=== PATIENT | male | born 1955 | race Caucasian/White ===

== ENCOUNTER → 2018-10-22 08:25 | Outpatient (CLI) | payer OTHER, SELFPAY ==
--- NOTE | 2018-10-22 08:30 | US_ITS ---
STUDY: ABDOMINAL ULTRASOUND REASON FOR EXAM: Male, 63 years old. One year history of intermittent right upper quadrant pain. TECHNIQUE: Transabdominal ultrasound was performed with real-time and static lepe scale imaging. TECHNICAL QUALITY: Adequate. COMPARISON: None. FINDINGS: Liver: The liver measures 15.0 cm. There is normal echogenicity of the liver. The bile ducts are within normal limits. There is hepatic color flow. The direction of portal flow is hepatopetal. There is no demonstrated mass lesion. Portal vein measurement: Gallbladder: Normal distended gallbladder. The gallbladder wall measures 2.2 mm. There is a negative sonographic Cardenas's sign. There is no pericholecystic fluid. There are no gallstones. Common Bile Duct (C.B.D.): The common bile duct measures 5.1 mm. Pancreas: Normal size of the head, body and tail of the pancreas. There is normal echogenicity of the pancreas. There is no demonstrated pancreatic mass or cyst. Spleen: Normal size of the spleen. The spleen measures 10.5 cm x 4.9 cm x 4.1 cm. There are multiple small calcified granulomas. Right Kidney: Normal size of the right kidney. The right kidney measures 9.4 cm x 5.1 cm x 5.3 cm. Normal renal cortex. The right cortex measures 1.8 cm. There is no demonstrated renal mass or cyst. There is no right hydronephrosis. Left Kidney: Normal size of the left kidney. The left kidney measures 9.7 cm x 5 cm x 6.0 cm. Normal renal cortex. The left cortex measures 1.4 cm. There is no demonstrated renal mass or cyst. There is no left hydronephrosis. Aorta: Unremarkable I.V.C.: The IVC is patent. There is no ascites. US/Abdomen Complete IMPRESSION: Normal abdominal ultrasound examination. Electronically Signed: Cassius Funes, at 15:24 EDT , Service support ,
== END ==
PROVIDERS: Family Provider Registered Nurse; PCP Registered Nurse; Referring Provider Registered Nurse; Visit Provider Registered Nurse
DX: R10.11 Right upper quadrant pain (principal); R11.0 Nausea; R14.3 Flatulence; R14.1 Gas pain; R14.2 Eructation
CPT/HCPCS: 76700

== ENCOUNTER → 2019-06-12 08:00 | Outpatient (CLI) | payer OTHER, SELFPAY ==
--- NOTE | 2019-06-12 08:07 | CT_ITS ---
STUDY: CT ABDOMEN WITH CONTRAST REASON FOR EXAM: Male, 63 years old. 5 year history of right upper quadrant pain. RADIATION DOSAGE (If Supplied By Facility): CTDIvol = ( 12.09 ) mGy, DLP = ( 247.98 ) mGycm TECHNIQUE: Transaxial images were obtained post I.V. administration of IV/Oral Isovue 370 100CC, and with oral contrast. Sagittal and coronal images were reconstructed. Individualized dose optimization techniques were used for this CT. COMPARISON: None. FINDINGS: Calcified granuloma in the right lower lobe. Minimal degree of increased markings at the lung bases suggestive scarring. The visualized portions of the heart are within normal limits. There is a 1.7 cm x 1.7 cm cyst in the inferior aspect of the right lobe of the liver. Normal gallbladder and extrahepatic biliary system. Borderline splenomegaly. Normal pancreas. Normal bilateral adrenal glands. Normal right kidney. Normal left kidney. Normal visualized stomach. Normal small intestine. Normal colon. The appendix is visualized and appears normal. Normal abdominal aorta. Normal inferior vena cava. Normal retroperitoneum. Normal abdominal wall. There is a 1.3 cm x 1.5 cm well-defined lucency in the right side of the L2 vertebrae. Correlation with bone scan is recommended. CT/Abdomen WITH IV Contrast IMPRESSION: 1.7 cm x 1.7 cm cyst in the inferior aspect of the right lobe of the liver. Borderline hepatomegaly. 1.3 cm x 1.5 cm well-defined lucency in the right side of the L2 vertebrae. Correlation with a bone scan is recommended. Electronically Signed: Cassius Funes, at 14:36 EST , Service support ,
[2019-06-12 08:26] LABS: CREATININE FINGERSTICK < 0.6 mg/dL (0.70-1.30)
== END ==
PROVIDERS: Family Provider Registered Nurse; PCP Registered Nurse; Referring Provider Registered Nurse; Visit Provider Registered Nurse
DX: Z01.812 Encounter for preprocedural laboratory examination (principal); R10.11 Right upper quadrant pain; R14.0 Abdominal distension (gaseous); R11.0 Nausea
CPT/HCPCS: 74160; Q9967

== ENCOUNTER → 2019-06-27 08:53 | Outpatient (CLI) | payer OTHER, SELFPAY ==
--- NOTE | 2019-06-27 08:55 | NM_ITS ---
CLINICAL: 63-year-old male with reported history of second lumbar vertebral radiographic abnormality. WHOLE BODY 99m Tc MDP RADIONUCLIDE BONE SCINTIGRAPHY COMPARISON: CT of the abdomen report 06/12/2019 FINDINGS: Following the intravenous administration of 25.4 mCi of 99m Tc MDP, whole body bone images reveal: 1. Increased radiopharmaceutical concentration is defined in the lower cervical spine posteriorly on the left, first thoracic vertebra posteriorly on the right, the acromioclavicular compartments of both shoulders, the right hip, left knee involving the anterior tibial compartment in the midline, bilateral ankles, the right midfoot. 2. The remaining skeletal structures are scintigraphically unremarkable with normal-appearing renal images and urinary bladder activity identified. NM/Bone Scan Whole Body IMPRESSION: 1. The increase in radiopharmaceutical concentration identified in the cervical and thoracic spine, bilateral shoulders, right hip, left knee, both ankles and right midfoot is most consistent with degenerative arthritis. Plain film radiography correlation may be benefit in the region of the right hip secondary to the intensity of uptake. 2. Meticulous attention paid to the second lumbar vertebra demonstrates no definitive scintigraphic abnormality to correlate with the radiographic changes defined on CT of the abdomen dated 06/12/2019. If a primarily lytic skeletal disorder is a consideration, correlation with FDG PET CT imaging is recommended. Electronically Signed: Raza Davis DO at 8:19 EST Tel , Service support ,
== END ==
LOC: NM 08:53
PROVIDERS: Family Provider Registered Nurse; PCP Registered Nurse; Referring Provider Family Medicine; Visit Provider Family Medicine
DX: R93.5 Abnormal findings on diagnostic imaging of other abdominal regions, including retroperitoneum (principal)
CPT/HCPCS: 78306

== ENCOUNTER → 2020-01-13 10:16 | Outpatient (CLI) | payer OTHER, SELFPAY ==
--- NOTE | 2020-01-13 10:20 | NM_ITS ---
CLINICAL: 64-year-old male with reported history of right upper quadrant abdominal pain. RADIONUCLIDE HEPATOBILIARY SCINTIGRAPHY COMPARISON: Abdominal ultrasound report 10/22/2018, CT of the abdomen report 06/12/2019 FINDINGS: Following the intravenous administration of 5.2 mCi of 99m Tc Mebrofenin, hepatobiliary images reveal: 1. Relatively prompt and homogeneous radiopharmaceutical concentration is noted by a normal sized liver. No parenchymal defects are identified. 2. Gallbladder activity is identified at presumably 70 minutes post radiopharmaceutical administration. 3. Small intestinal tract is observed at 10 minutes following tracer injection. 4. Washout of the radiopharmaceutical by the hepatic parenchyma appears qualitatively normal. Cholecystokinin (0.02 ug/kg) was administered intravenously over a 30-minute period. The post CCK gallbladder ejection fraction calculated at 20 minutes following Cholecystokinin administration was noted to be 68.0 % (normal greater than 35%). During 30 minutes of post CCK imaging, there is no scintigraphic evidence of reflux of the radiotracer into the common hepatic duct or refilling of the gallbladder. 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 NM/Hepatobilliary Img w/Pharm Int IMPRESSION: 1. A gallbladder ejection fraction calculated to be greater than 35% following the administration of Cholecystokinin makes the probability of functional hepatobiliary disease (gallbladder and/or sphincter of Oddi dyskinesia) and/or organic hepatobiliary disease (chronic acalculous cholecystitis and/or cystic duct syndrome) to be low. (Luisa Borja et al, Journal of Nuclear Medicine 32:1695, 1990). 2. There is scintigraphic evidence of post CCK duodenal-gastric reflux as defined above. (Rubin et al, Nucl Med [employer] pg. 35, 1980). Electronically Signed: Raza Davis DO at 22:07 EDT Tel , Service support ,
== END ==
PROVIDERS: PCP Registered Nurse
DX: R10.11 Right upper quadrant pain (principal)
CPT/HCPCS: 78227; A9537; J2805

== ENCOUNTER → 2025-02-11 | Outpatient (CLI) | payer MEDICARE, OTHER, SELFPAY ==
--- NOTE | 2025-02-11 08:57 | NM_ITS ---
PROCEDURE: HEPATOBILIARY IMAGING 02/11/2025 REASON FOR EXAM: RUQ PAIN TECHNIQUE: Intravenous Choletec with planar imaging of the abdomen. RADIOPHARMACEUTICAL: 5.8 mCi technetium 99 M mebrofenin COMPARISON: 2019 FINDINGS: Homogeneous and prompt liver activity. CBD and proximal bowel activity by 30 minutes. Gallbladder activity by 2 hours. NM/Hepatobilliary Imaging IMPRESSION: Patent cystic and common bile ducts. Delayed gallbladder visualization is a nonspecific finding, correlate for possi ble gallbladder dysfunction. Reading Location: [place] [id number]
== END | disposition home or self-care (01) ==
LOC: NM 08:53
PROVIDERS: PCP Family Medicine; Referring Provider Nurse Practitioner Family; Visit Provider Nurse Practitioner Family
DX: R10.11 Right upper quadrant pain (principal)
CPT/HCPCS: 78226; A9537

== ENCOUNTER 2025-04-03 12:47 | Emergency (ER) | payer MEDICARE, OTHER, SELFPAY ==
[2025-04-03 12:50] VITALS: BP 152/101; PULSE 85; RESP 18; TEMP 36.5; O2SAT 99; BMI 24.0
--- NOTE | 2025-04-03 13:27 | VDLE_ITS ---
Reason For Study Reason For Study: BLE Pain RIGHT LEFT GSV is normal. GSV is normal. CFV is compressible, spontaneous, phasic, competent CFV is compressible, spontaneous, phasic, competent, and demonstrates normal augmentation. and demonstrates normal augmentation. FV is compressible, spontaneous, phasic, competent FV is compressible, spontaneous, phasic, competent and demonstrates normal augmentation. and demonstrates normal augmentation. POP V is compressible, spontaneous, phasic, competent POP V is compressible, spontaneous, phasic, competent and demonstrates normal augmentation. and demonstrates normal augmentation. T/P Trunk is compressible. T/P Trunk is compressible. PTV is compressible. PTV is compressible. RT PerV is compressible. LT PerV is compressible. Procedure This is a venous duplex using B-mode, color flow and spectral Doppler. Exam performed in department. The exam was diagnostic. A preliminary report was called and/or faxed to ED RN. VL/Venous Duplex US - Francisco Javier Extrem Interpretation Summary Deep veins of the lower extremities are bilaterally patent and compressible seg mentally. There is no evidence of deep vein thrombosis on either side. Valvular competence appears intact within the p roximal deep venous systems bilaterally. The great saphenous veins appear bilaterally patent and compressible segmentall y. Ordering Physician: Roque Wood Referring Physician: Anthony Toscano Performed By: Shin Lasw RVT
--- NOTE | 2025-04-03 13:35 | EX.ED.DYSGE1 ---
HPI History of Present Illness Chief Complaint: Numb/Ting Narrative Narrative: Patient is a 69-year-old male past medical history of previous back surgery about a year ago, cholecystectomy about 5 weeks ago, hypertension who presented to the emergency department with a chief complaint of lower extremity feeling of cold sensation and tingling he states that is from his knees down. He states that he is also having more back pain than normal in his lower back. He states that about 5 weeks ago after multiple doctor visits secondary to pain going to his back and his shoulder they found his gallbladder needed removal which was taken out. He states that of the symptoms that he has today did happen in the past as well but resolved on their own. He states that when he woke up this morning he noticed this. He states he is urinating normally for himself and having normal bowel movements. Patient denies any other trauma or injuries to his back. Patient denies any history of blood clots denies any recent travel history but once again did have surgery recently PFSH PFS Medical History no medical history Allergy/AdvReac Type Severity Reaction Status Date / Time Penicillins Allergy PT UNSURE Verified 04/03/25 12:50 OF REACTION Family History no significant family his Surgical History no surgical history Social History Smoking Status: Never smoker ROS ROS ED ROS Narrative Constitutional: Denies fever, chills, headache Eyes: Denies double vision Cardiovascular: Denies chest pain Respiratory: Denies shortness of breath Abdomen: Denies abdominal pain nausea vomit diarrhea : Denies urinary symptoms Neurological: Complains of numbness and cool sensation to the lower extremities from the knees down bilaterally as noted above Musculoskeletal: Complains of back pain as noted above Skin: Denies any rashes or lesions EXAM Physical Exam Narrative Exam Narrative: General: Patient was lying in bed rest comfortably did not appear to be in acute distress Head: Atraumatic, normocephalic Eyes: PERRL bilateral, EOMI bilateral, no conjunctival injection noted Neck: Soft, supple, trachea midline Cardiovascular: Regular rate and rhythm no murmurs gallops rubs noted Respiratory: Clear to auscultation bilaterally Abdomen: Soft, nondistended, no tenderness to palpation Extremities: DP pulses +2/4 in the bilateral lower extremities as well as the PT pulses bilaterally, +5/5 strength noted in the bilateral upper and lower extremities Neurological: Patient follow commands and that he was at [facility] and the year is 2024. Sensation grossly intact no saddle anesthesia noted Skin: Warm, dry, tact no rashes or lesions noted Const Vital Signs: 04/03/25 12:50 04/03/25 14:48 Temperature 97.7 F L Temperature Source Temporal Pulse Rate 85 Respiratory Rate 18 Blood Pressure 152/101 H 151/92 H Blood Pressure Mean 118 111 Pulse Ox 99 Oxygen Delivery Method Room Air MDM MDM MDM Narrative Medical decision making narrative: Patient is a 69-year-old male who presented to the emergency department the chief complaint of lower extremity below the knee feeling of cold sensation as well as numbness. On the differential diagnose includes but not limited to arterial occlusion although low suspicion for this based on clinical exam, DVT with recent surgery, compression fracture, hardware loosening. Once workup is obtained reviewed he will be reevaluated. Patient CBC was reviewed which showed a white blood count of 7.9, hemoglobin was 13.8, plate count of 270. Patient sodium is 138, potassium normal 4.4, creatinine normal at 0.82. Patient AST and ALT are 20 and 20 respectively, lipase was notably normal at 28, TSH normal at 1.55, free T4 and T3 normal at 1.30 and 2.7 respectively. Patient CTA abdomen pelvis reviewed which showed normal CT of the abdominal aorta and bilateral lower extremity runoff. He has coronary artery calcification noted with a calcified right hilar lymph nodes. 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 He states that he does not develop any chest pain with this he was advised to obtain a stress test in the outpatient setting as well. Patient's bilateral duplex negative for DVT or superficial venous embolus. A1c pending Discussed results with the patient he would like to go home at this point time. He is advised to follow-up his doctor in outpatient and return with worsening symptoms or concerns. He is agreeable to plan as well as significant other bedside all question concerns answered he was discharged home in stable condition. Lab Data Labs: Laboratory Results - last 24 hr 04/03/25 13:45 WBC 7.9 RBC 4.42 L Hgb 13.8 Hct 40.7 MCV 92.1 MCH 31.2 MCHC 33.9 RDW Std Deviation 48.8 H RDW Coeff of Anastasia 14.3 Plt Count 270 MPV 8.8 Immature Gran % (Auto) 0.400 Neut % (Auto) 69.4 Lymph % (Auto) 22.2 [place] % (Auto) 6.9 Eos % (Auto) 0.6 Baso % (Auto) 0.5 Absolute Neuts (auto) 5.5 Absolute Lymphs (auto) 1.74 Nucleated RBC % 0 Sodium 138 Potassium 4.4 Chloride 101 Carbon Dioxide 24.7 Anion Gap 12 BUN 15 Creatinine 0.82 Estim Creat Clear Calc 76.04 Est GFR (MDRD) Non-Af 96 BUN/Creatinine Ratio 18.6 Glucose 92 Calcium 9.1 Total Bilirubin 0.67 AST 20 ALT 20 Alkaline Phosphatase 65 Total Protein 6.7 Albumin 4.0 Globulin 2.7 Albumin/Globulin Ratio 1.5 Lipase 28 TSH 1.550 Free T4 1.30 Free T3 pg/dL 2.7 Radiography Diagnostic Testing: Clinical Impression(s) from Imaging Studies Abdomen/Pelvis CTA 04/03/25 14:00 IMPRESSION: Normal CT a of the abdominal aorta and bilateral lower extremity runoff. Other findings as described above. Reading Location: [facility] Discharge Plan Triage Chief Complaint: Numb/Ting ED Provider: Roque Wood Dx/Rx/DC Orders Clinical Impression: Bilateral leg numbness, Chronic back pain, Hx of cholecystectomy Primary Care Provider: Anthony Toscano Referrals: Anthony Toscano MD [Primary Care Provider] - Activity Restrictions/Additional Instructions: Your CT scan showed evidence that you have a coronary artery calcification and follow-up on this with your doctor with stress test as we discussed. Your blood work did not show acute findings. Follow-up on A1c with your doctor as well. Return with worsening symptoms or concerns. Print Language: Macedonian Disposition Disposition: Home, Self Care
[2025-04-03] MEDS: 0.9% Normal Saline (1000mL) 1,000 ML 999 ML IV (13:46)
[2025-04-03 13:57] LABS: Hematocrit 40.7 % (40-54); Hemoglobin 13.8 g/dL (13.0-16.5); Immature Granulocytes Count 0.030 X10^3/uL (0.0-0.0); Mean Corp Hgb Conc 33.9 g/dL (32-36); Mean Corpuscular Volume 92.1 fL (80-94); Mean Platelet Vol. 8.8 fl (6.2-12.0); NRBC Flagged by Analyzer 0 % (0-5); Platelet Count 270 K/mm3 (150-450); RBC Distribution Width CV 14.3 % (11.6-14.6); RBC Distribution Width SD 48.8 fl (35.1-43.9); Red Blood Count 4.42 M/mm3 (4.6-6.2); White Blood Count 7.9 K/mm3 (4.4-11.0)
--- NOTE | 2025-04-03 14:00 | CT_ITS ---
PROCEDURE: CTA ABD W/RUNOFF W/WO CONTRAST 04/03/2025 REASON FOR EXAM: LOW BACK PIAN, BLE PAIN AND COLD SENSATION Delete TECHNIQUE: Procedure Code: [id number] Modality: CT Procedure: CTA ABD W/RUNOFF W/WO CONTRAST One or more dose reduction techniques were used (e.g., Automated exposure control, adjustment of the mA and/or kV according to patient size, use of iterative reconstruction technique). Multiplanar Sagittal and Coronal images were obtained. 3D and or MIPS post processing was performed CONTRAST: Isovue 370 VOLUME: 100 mL RADIATION DOSE SUMMARY: CTDlvol: 8.8 mGy DLP: 938.45 mGycm COMPARISON: None FINDINGS: Aorta: Mild non stenotic calcific plaques in the infrarenal abdominal aorta. Celiac: Widely patent. SMA: Widely patent CULLEN : Widely patent Right Renal: Unremarkable Left Renal: Unremarkable RIGHT Iliac Arteries: Common Iliac: Unremarkable External Iliac: Unremarkable Internal Iliac: Unremarkable LEFT Iliac Arteries: Common Iliac: Unremarkable External Iliac: Unremarkable Internal Iliac: Unremarkable RIGHT Lower Extremity: Common Femoral: Unremarkable Superficial Femoral: Unremarkable Deep Femoral: Unremarkable Popliteal: Unremarkable Anterior Tibial: Unremarkable Tibioperoneal Trunk: Unremarkable Posterior Tibial: Unremarkable Peroneal: Unremarkable Dorsalis Pedis: Unremarkable LEFT Lower Extremity: Common Femoral: Unremarkable Superficial Femoral: Unremarkable Deep Femoral: Unremarkable Popliteal: Unremarkable Anterior Tibial: Unremarkable Tibioperoneal Trunk: Unremarkable Posterior Tibial: Unremarkable Peroneal: Unremarkable Dorsalis Pedis: Unremarkable. Other Findings: Coronary artery calcification. Calcified right hilar lymph nodes. Calcified granuloma in the right lower lobe. Diffuse fatty infiltration of the liver. Subcentimeter cyst is seen in the lateral aspect of the left lobe of the liver. Spleen and pancreas are unremarkable. Moderate amount of fecal material is seen in the colon. Status post right total hip replacement. CT/CTA Abd w/Runoff W/WO Contrast IMPRESSION: Normal CT a of the abdominal aorta and bilateral lower extremity runoff. Other findings as described above. Reading Location: [id number]
[2025-04-03 14:48] VITALS: BP 151/92
[2025-04-03 15:02] LABS: Free T3 2.7 pg/mL (2.18-3.98); Lipase 28 U/L (13-75)
[2025-04-03 15:04] LABS: AST(SGOT) 20 U/L (<=37); Alanine Aminotransfer ALT/SGPT 20 U/L (<=46); Albumin, Serum 4.0 g/dL (3.4-4.8); Alkaline Phosphatase 65 U/L (40-129); Anion Gap 12 (5-15); BUN 15 mg/dL (4-19); BUN/Creat Ratio 18.6 RATIO (10-20); Calcium,Total 9.1 mg/dL (7.6-11.0); Carbon Dioxide 24.7 mmol/L (21.0-32.0); Chloride 101 mmol/L (98-108); Estimated Creatinine Clearance 76.04 ml/min (50-250); Globulin 2.7 g/dL (2.2-4.2); Glucose 92 mg/dL (70-99); Potassium 4.4 mmol/L (3.3-5.1)
[2025-04-03 15:45] VITALS: BP 158/95; PULSE 85; RESP 18; TEMP 36.5; O2SAT 99
== END 2025-04-03 15:59 | disposition home or self-care (01) ==
PROVIDERS: Emergency Provider Emergency Medicine; PCP Family Medicine; Visit Provider Emergency Medicine
DX: R20.0 Anesthesia of skin (principal); G89.29 Other chronic pain; M54.9 Dorsalgia, unspecified; I25.10 Atherosclerotic heart disease of native coronary artery without angina pectoris; Z86.718 Personal history of other venous thrombosis and embolism
CPT/HCPCS: 75635; 80053; 83036; 83690; 84439; 84443; 84481; 85025; 93970; 96360; 96361; 99283; Q9967; A4216

== ENCOUNTER 2025-06-20 15:50 | Emergency (ER) | payer MEDICARE, OTHER, SELFPAY ==
[2025-06-20 15:50] VITALS: BP 171/99; PULSE 73; RESP 16; TEMP 36.6; O2SAT 100; BMI 25.7
--- NOTE | 2025-06-20 16:01 | EKG12_ITS ---
Test Reason : CP Blood Pressure : */* mmHG Vent. Rate : 68 BPM Atrial Rate : 68 BPM P-R Int : 144 ms QRS Dur : 82 ms QT Int : 382 ms P-R-T Axes : 74 33 59 degrees QTcB Int : 406 ms Normal sinus rhythm with sinus arrhythmia Normal ECG Confirmed by KURT MONTGOMERY ([id number]), managing editor MARCELLA WRIGHT ([id number]) on 06/22/2025 6:42:32 AM Referred By: CALI Confirmed By: KURT MONTGOMERY
--- NOTE | 2025-06-20 16:08 | CT_ITS ---
PROCEDURE: CTA CHEST W/WO CONTRAST 06/20/2025 REASON FOR EXAM: BACK PAIN EVALUATE FOR POSSIBLE AORTIC DISSECTION. TECHNIQUE: Procedure Code: [id number] Modality: CT Procedure: CTA CHEST W/WO CONTRAST Multiplanar Sagittal and Coronal images were obtained. CONTRAST: Isovue 370 VOLUME: 75 mL One or more dose reduction techniques were used (e.g., Automated exposure control, adjustment of the mA and/or kV according to patient size, use of iterative reconstruction technique). RADIATION DOSE SUMMARY: CTDlvol: 6.04 mGy DLP: 260.62 mGycm COMPARISON: None # of known CTs in the past 12 months: 0 # of known Cardiac Nuclear Medicine Studies in the past 12 months: 0 FINDINGS: Thoracic Aorta: No aneurysm. No dissection. Heart: No cardiomegaly. Atherosclerotic calcifications of the coronary arteries. Pulmonary Vessels: No evidence of pulmonary embolism. Hardware: Unremarkable. Lymph nodes: No lymphadenopathy. Lungs and Airways: Clear. Pleura: No pleural effusion or pneumothorax. Upper Abdomen: No acute findings. Bones: No acute bony abnormalities. CT/CTA Chest W/WO Contrast IMPRESSION: No evidence of pulmonary embolism. No evidence of acute chest abnormalities. Reading Location: [facility]
--- NOTE | 2025-06-20 16:11 | EDS_ITS ---
HPI History of Present Illness Chief Complaint: Chest Pain Detail of Chief Complaint: Back pain between his shoulder blades since last Sunday. No chest pain. Informant: patient and spouse/S.O. Onset/Context/Timing Onset: Days Activity at onset: gradual Timing: Continuous Quality: Positive for Aching and Pain Location: - (Pain between his shoulder blades. No chest pain.) Current Severity: Mild Maximum Severity: Moderate Worsened By: Movement of Torso Relieved By: Nothing Associated Symptoms: Positive for Nausea; Negative for Vomiting, Diaphoresis, Dyspnea, Cough, Fever, Lightheadedness, Acid Reflux or Palpitations Narrative Narrative: 69-year-old male said since last Sunday 5 days ago he has had pain in his back mid thoracic between his shoulder blades. Worse with movement. Not pleuritic. No hemoptysis. No chest pain no shortness of breath. Mild nausea. No prior cardiac history. No history of a thoracic aneurysm. No prior dissection or blood clot. Prior Similar Symptoms: No Recent Illness/Hospitalization: No CVD Risk Factors: Positive for Hypertension; Negative for Diabetes, Hypercholesterolemia or Family History 1' </=55 PE Risk Factors: Negative for Recent Travel/Surgery, Recent Immobilization, Prior DVT or PE, Cancer or OCP + Smoking + >/=35 TAD Risk Factors: Negative for Marfan's Syndrome PFSH PFSH Home Medications Medication Instructions Recorded Last Taken Type metaxalone 800 mg tablet 800 mg PO TID 7 days #21 tab s 06/20/25 Unknown Rx Allergy/AdvReac Type Severity Reaction Status Date / Time Penicillins Allergy PT UNSURE Verified 06/20/25 15:51 OF REACTION Social History Smoking Status: Never smoker ROS ROS ED ROS Narrative Back pain between shoulder blades. Nausea. No shortness of breath. No chest pain. Not exertional. Constitutional Constitutional ED: Denies chills or fever(s) Eyes Eyes: Reports none ENT ENT ED: Denies ear pain Cardiovascular Cardiovascular: Reports as per HPI; Denies chest pain, palpitations or racing heartbeat Respiratory/Chest Respiratory/Chest: Denies cough or dyspnea Gastrointestinal Gastrointestinal: Reports nausea; Denies abdominal pain, constipation, diarrhea, melena or vomiting Genitourinary Genitourinary ED: Denies dysuria or hematuria Musculoskeletal Musculoskeletal: Reports back pain; Denies arthralgias Integumentary Denies abscess Neurologic Neurologic: Denies headache(s) Psychiatric Psychiatric: Denies anxiety Endocrine Endocrinology: Denies cold intolerance Hematologic/Lymphatic Hematologic/Lymphatic: Denies easy bleeding, easy bruising or lymphadenopathy Allergic/Immunologic Allergic/Immunologic ED: Denies mouth swelling, tongue swelling or urticaria EXAM Physical Exam Narrative Exam Narrative: Well-appearing 69-year-old male. Acompanied by his . Vital signs are stable pulse ox 100% on room air no hypoxia. Blood pressure is elevated 17 . Patient is in no distress. H EENT exam pupils round react light. Moist mutes membranes. Neck nontender no JVD. Back nontender. No ecchymosis or bruising no redness or warmth. No reproducible pain. Lungs clear to auscultation bilaterally. Heart regular rhythm rate about 70 no murmur. Chest wall and ribs are nontender. Abdomen soft nontender. No peritoneal signs no pulsatile mass. Moving all 4 extremities. Normal sales facilitator strength. Normal radial pulses equal and symmetrical. Dorsi plantarflexion intact. Calves are nontender without edema or cords. Neurologically he is awake alert. Answering questions following commands. Very benign exam. Const Vital Signs: 06/20/25 15:50 06/20/25 16:01 06/20/25 16:08 Temperature 98 F Temperature Source Oral Pulse Rate 73 Respiratory Rate 16 Respiratory Effort Normal Non-Labored Blood Pressure 171/99 H Blood Pressure Mean 123 Pulse Ox 100 Oxygen Delivery Method Room Air 06/20/25 16:41 06/20/25 17:46 Temperature Temperature Source Pulse Rate 58 L 49 L Respiratory Rate 14 18 Respiratory Effort Blood Pressure 168/94 H 123/89 H Blood Pressure Mean 118 100 Pulse Ox 99 100 Oxygen Delivery Method Room Air Room Air MDM MDM MDM Narrative Medical decision making narrative: 69-year-old male with atypical intrathoracic nonreproducible back pain is worse with movement which makes you think it is musculoskeletal. Thing going on now about 5 days. He has no associated chest pain. He has never had a dissection or history of thoracic aneurysm. To be worked up for possible dissection since the pain is not reproducible. CTA of his chest with cardiac workup. His initial EKG is unremarkable. OB given morphine for pain and Zofran. Repeat exam around 4:15 PM patient is doing well. The morphine helped his pain. We are awaiting the CT of his chest results. I did review it. Waiting for radiology interpretation. Patient's ambulated to the restroom. I discussed his initial test results of both he and his . Repeat exam around 6:48 PM we went over all his test results he is comfortable being discharged home. There is no dissection. This does not all sound cardiac in nature. He has no chest pain. Is not exertional. Is worse with movement. On repeat exam he is some reproducible pain which he initially did not have this may be secondary to muscle spasm. We discharged home with instructions to do hot shower, warm bath, massage and Skelaxin as needed along with anti- inflammatories. Patient and are comfortable with the plan. History & Record Review Discussion w/independent historian: Patient and Family Additional record(s) reviewed:: Prior outpatient record, Prior ED visit and Estrellita or labs Lab Data Attestation: I reviewed the patient's lab results. Lab results narrative: CBC unremarkable. White count of 7. H&H 14 and 41. Platelets 296. Electrolytes show a gap of 12. BUN and creatinine of 17 and 1. Glucose 92. Initial troponin 9. 2-hour troponin is 18. CTA chest unremarkable. EKG unremarkable. CTA of the chest as read by the radiologist showed no PE and no dissection and no acute abnormalities. Labs: Laboratory Results - last 24 hr 06/20/25 06/20/25 16:05 18:10 WBC 7.8 RBC 4.56 L Hgb 14.1 Hct 41.2 MCV 90.4 MCH 30.9 MCHC 34.2 RDW Std Deviation 40.9 RDW Coeff of Anastasia 12.4 Plt Count 296 MPV 9.0 Immature Gran % (Auto) 0.300 Neut % (Auto) 54.9 Lymph % (Auto) 36.3 Ashley % (Auto) 7.4 Eos % (Auto) 0.6 Baso % (Auto) 0.5 Absolute Neuts (auto) 4.3 Absolute Lymphs (auto) 2.84 Nucleated RBC % 0 Sodium 140 Potassium 3.7 Chloride 104 Carbon Dioxide 24.3 Anion Gap 12 BUN 17 Creatinine 1.04 Estim Creat Clear Calc 59.96 Est GFR (MDRD) Non-Af 79 BUN/Creatinine Ratio 16.0 Glucose 92 Calcium 9.0 Troponin T High Sens 9 Troponin T Hi Sens 2 Hr 18 Radiography Diagnostic Testing: Clinical Impression(s) from Imaging Studies Chest CTA 06/20/25 16:08 IMPRESSION: No evidence of pulmonary embolism. No evidence of acute chest abnormalities. Reading [facility] Rhythm Strip Rhythm Strip: Sinus Rhythm Rate: 68 Ectopy: None EKG Initial EKG: Attestation: I personally reviewed and interpreted this EKG as follows: Interpretation: Sinus Rhythm and No Acute Injury Pattern Comments: Normal sinus rhythm rate of 68 no acute signs of NE or ischemia. Discharge Plan Triage Chief Complaint: Chest Pain ED Provider: Mark Douglas Dx/Rx/DC Orders Clinical Impression: Acute thoracic back pain, Muscle spasm Instructions: ED Back Spasm, No Trauma Prescriptions: New metaxalone 800 mg tablet 800 mg PO TID 7 Days Qty: 21 0RF Primary Care Provider: Anthony Toscano Referrals: Anthony Toscano MD [Primary Care Provider, Family Practice] - 1 Week if not improving Activity Restrictions/Additional Instructions: Your CAT scan, EKG and labs all look good. I believe this to be musculoskeletal back pain. Muscle spasms. Hot shower, warm bath, warm compresses and massage. Motrin for pain and inflamm ation Tylenol for pain. You can start the muscle relaxant Skelaxin 1 pill 3 times a day after usually day 3 or 4 you will start having significant relief with secondary to muscle spasms. He will take the pill all 3 times a day. Print Language: Prydeinig Disposition Disposition: Home, Self Care
[2025-06-20 16:19] LABS: Hematocrit 41.2 % (40-54); Hemoglobin 14.1 g/dL (13.0-16.5); Immature Granulocytes Count 0.020 X10^3/uL (0.0-0.0); Mean Corp Hgb Conc 34.2 g/dL (32-36); Mean Corpuscular Volume 90.4 fL (80-94); Mean Platelet Vol. 9.0 fl (6.2-12.0); NRBC Flagged by Analyzer 0 % (0-5); Platelet Count 296 K/mm3 (150-450); RBC Distribution Width CV 12.4 % (11.6-14.6); RBC Distribution Width SD 40.9 fl (35.1-43.9); Red Blood Count 4.56 M/mm3 (4.6-6.2); White Blood Count 7.8 K/mm3 (4.4-11.0)
--- OUTSIDE RECORDS SUMMARY | 2025-06-20 16:28 | XMS RPT_ITS | CCD ---
Author Organization [facility] Care Team Providers Care Central Control Room Operator Name Role Phone KaelingJunaid hubbard Primary Care Provider [phone] Anthony Chamorro MD Primary Care Provider Anthony Chamorro MD Primary Care Provider PROVIDER, UNKNOWN Attending Unavailable Anthony Chamorro Primary Care Unavailable PROVIDER, UNKNOWN Referring Unavailable Anthony Chamorro MD Primary Care Provider Anthony Chamorro MD Primary Care Provider Weston Henao Primary Care Provider [phone] Bridenthal KEY BED INSTALLER, Ilan Jessica Unavailable Bridenthal BARKING MACHINE FEEDER-C, Ilan Attending Provider Bridenthal BARKING MACHINE FEEDER-C, Ilan Referring Provider Dr. Anthony Chamorro MD Primary Care Provider Weston Henao Primary Care Provider MANAN PACKER Attending Unavailable SELF Referring Unavailable WESTON HENAO Primary Care Unavailable Dr. Roque Wood DO Emergency Provider [phone] Roque Wood Attending Unavailable Pedro Pablo Anthony Primary Care Unavailable Pedro Pablo, Anthony Primary Care Unavailable Bridenthal, Ilan Referring Unavailable Bridenthal, Ilan Attending Unavailable OSCAR MROELOS Attending Unavailable PEDRO PABLO, ANTHONY Primary Care Unavailable PEDRO PABLO, ANTHONY Primary Care Unavailable YESENIA CLEMONS Attending Unavailable PEDRO PABLO, ANTHONY Primary Care Unavailable ROSANNE DAVIS Attending Unavailable PEDRO PABLO, ANTHONY Primary Care Unavailable QUOC US Attending Unavailable PEDRO PABLO, ANTHONY Primary Care Unavailable PEDRO PABLO, ANTHONY Primary Care Unavailable TRAVON, CORONA Attending Unavailable TRAVON, CORONA Admitting Unavailable PEDRO PABLO, ANTHONY Primary Care Unavailable PEDRO PABLO, ANTHONY Primary Care Unavailable PEDRO PABLO, ANTHONY Referring Unavailable TRAVON, CORONA Attending Unavailable PEDRO PABLO, ANTHONY Primary Care Unavailable PEDRO PABLO, ANTHONY Attending Unavailable PEDRO PABLO, ANTHONY Primary Care Unavailable QUOC US Attending Unavailable PEDRO PABLO, ANTHONY Primary Care Unavailable PEDRO PABLO, ANTHONY Primary Care Unavailable BRIDENTHAL, ILAN Attending Unavailable PEDRO PABLO, ANTHONY Primary Care Unavailable BRIDENTHAL, ILAN Attending Unavailable PEDRO PABLO, ANTHONY Primary Care Unavailable BRIDENTHAL, ILAN Attending Unavailable PEDRO PABLO, ANTHONY Primary Care Unavailable EHRNICK LOWERY Referring Unavailable EHRNICK LOWERY Attending Unavailable PEDRO PABLO, ANTHONY Primary Care Unavailable BRIDENTHAL, ILAN Referring Unavailable BRIDENTHAL, ILAN Attending Unavailable PEDRO PABLO, ANTHONY Primary Care Unavailable BRIDENTHAL, ILAN Attending Unavailable PEDRO PABLO, ANTHONY Primary Care Unavailable PEDRO PABLO, ANTHONY Primary Care Unavailable BRIDENTHAL, ILAN Attending Unavailable JAYANT NG E Attending Unavailable PEDRO PABLO, ANTHONY Primary Care Unavailable PEDRO PABLO, ANTHONY Primary Care Unavailable BRIDENTHAL, ILAN Attending Unavailable KAVIN WESTBROOK Attending Unavailable PEDRO PABLO, ANTHONY Primary Care Unavailable PEDRO PABLO, ANTHONY Primary Care Unavailable Allergies Allergy Classification Reported Allergen(s) Allergy Type Date of Onset Reaction(s) Facility Penicillins (antibiotic) (1 source) Penicillins Drug Allergy 2 [facility] (8 sources) Penicillins; Translations: [PENICILLINS] Propensity to adverse reactions to drug 5 Other (See Comments) [place], [place] (20 sources) Penicillins Propensity to adverse reactions 2 [facility] (1 source) Penicillins Drug Allergy 5 Other: See Comments [facility] (1 source) Penicillins Allergy to substance 5 PT UNSURE OF REACTION [facility] (1 source) Penicillins Drug allergy (disorder) 5 [facility] Repository Medications Current Medications Medication Drug Class(es) Dates Sig (Normalized) Sig (Original) acetaminophen 325 mg / oxyCODONE hydrochloride 5 mg oral tablet (11 sources) Opioid Agonist Start: 02-19-2025 End: 02-24-2025 take 1 tablet by mouth every six hours as needed for pain oxyCODONE-acetamino phen (Percocet) 5-325 MG tablet Indications: Cholecystitis Take 1 tablet by mouth every 6 hours as needed for severe pain (7-10) for up to 5 days. 10 tablet 02/19/2025 2:31 PM EDT 02/19/2025 02/24/2025 Active Start: 03-26-2024 End: 03-26-2024 1 tablet, Oral, Once, On Sun03/26/24 at 1720, For 1 dose, Maximum dose of acetaminophen is 4000 mg from all sources in 24 hours. Start: 03-26-2024 End: 03-29-2024 take 1 tablet by mouth every six hours as needed for pain oxyCODONE-acetaminophen (Percocet) 5-325 MG tablet Indications: Acute exacerbation of chronic low back pain Take 1 tablet by mouth every 6 hours as needed for severe pain (7-10) for up to 3 days. 10 tablet 03/26/2024 03/29/2024 Active Start: 03-18-2024 End: 03-18-2024 1 tablet, Oral, Once, On Sun03/18/24 at 1415, For 1 dose, Maximum dose of acetaminophen is 4000 mg from all sources in 24 hours. Start: 02-23-2022 End: 02-23-2022 oxyCODONE-acetaminophen (PER COCET) 5-325 MG per tablet 1 tablet Start: 02-23-2022 End: 02-26-2022 oxyCODONE-acetaminophen (PER COCET) 5-325 MG per tablet Indications: Upper back pain Take 1 tablet by mouth every 6 hours as needed for Pain for up to 3 days. Intended supply: 3 days. Take lowest dose possible to manage pain 12 tablet 0 02/23/2022 02/26/2022 Active amitriptyline hydrochloride 50 mg oral tablet (8 sources) Tricyclic Antidepressant Start: 03-16-2025 End: 09-27-2025 amitriptyline (Elavil) 50 MG tablet Take 50 mg by mouth. 03/16/2025 09/27/2025 Active Start: 03-16-2025 End: 04-15-2025 take 1 tablet by mouth once daily amitriptyline (Elavil) 10 MG tablet Indications: Nerve pain , Anxiety Take 1 tablet (10 mg) by mouth Nightly. 30 tablet 03/16/2025 04/06/2025 Discontinued (Med list cleanup) azithromycin 250 mg oral tablet (12 sources) Macrolide Antimicrobial Start: 04-11-2023 azithromycin (Zithromax) 250 MG tablet Take 2 tabs (500 mg) on day 1, and take 1 tab (250 mg) on days 2 through 5 6 tablet 0 04/11/2023 Active Start: 07-13-2022 End: 04-11-2023 azithromycin (Zithromax Z-Pa k) 250 MG tablet Take as directed 6 tablet 0 07/13/2022 04/11/2023 Discontinued (Med list cleanup) busPIRone hydrochloride 7.5 mg oral tablet (20 sources) Start: 12-11-2024 End: 01-01-2025 take 1 tablet by mouth twice daily busPIRone (Buspar) 7.5 MG tablet Indications: Anxiety Take 1 tablet (7.5 mg) by mouth 2 times daily. 180 tablet 1 01/01/2025 Active Start: 12-03-2024 take 1 tablet by nic twice daily busPIRone (Buspar) 7.5 MG tablet Indications: Anxiety Take 1 tablet (7.5 mg) by mouth 2 times daily. 60 tablet 12/03/2024 Active celecoxib 200 mg oral capsule (10 sources) Nonsteroidal Anti-inflammatory Drug Start: 04-07-2024 take 1 capsule by mouth twice daily celecoxib (CeleBREX) 200 MG capsule Take 1 capsule (200 mg) by mouth 2 times daily. 60 capsule 04/07/2024 Active cyclobenzaprine hydrochloride 10 mg oral tablet (14 sources) Muscle Relaxant Start: 03-18-2024 take 5 mg by mouth once 5 mg, Oral, Once, On Sun03/18/24 at 1540, For 1 dose Start: 03-18-2024 End: 05-01-2024 take 1 tablet by mouth three times daily cyclobenzaprine (Flexeril) 10 MG tablet Indications: Midline low back pain without sciatica, unspecified chronicity Take 1 tablet (10 mg) by mouth 3 times daily for 10 days. 30 tablet 03/18/2024 05/01/2024 Discontinued (Therapy completed) docusate sodium 50 mg oral capsule (1 source) Start: 02-28-2022 take 2 capsules by mouth in the morning for constipation, then take 2 capsules by mouth twice daily at bedtime for constipation docusate sodium (COLACE) 50 MG capsule Take 2 capsules by mouth in the morning and 2 capsules before bedtime. Take 2 times a day as long as you are taking pain medicine or needed for constipation. 60 capsule 0 02/28/2022 Active fluticasone propionate 0.05 mg/actuat metered dose nasal spray (3 sources) Corticosteroid Start: 04-11-2023 End: 04-10-2024 take 2 spray(s) nasal route once daily fluticasone (Flonase) 50 MCG/ACT nasal spray Indications: Post-nasal drip Administer 2 sprays into each nostril daily. Shake gently. Before first use, prime pump. After use, clean tip and replace cap. 16 g 5 04/11/2023 04/10/2024 Active losartan potassium 100 mg oral tablet (20 sources) Angiotensin 2 Receptor Rosario Start: 12-03-2024 take 0.5 tablet by mouth once daily losartan (Cozaar) 100 MG tablet Indications: Primary hypertension Take 0.5 tablets (50 mg) by mouth Nightly. 12/03/2024 Active Start: 12-03-2024 losartan (COZA AR) 100 mg tablet Take 50 mg by mouth. 12/03/2024 Active Start: 08-01-2023 End: 12-03-2024 take 1 tablet by mouth once daily losartan (Cozaar) 100 MG tablet Take 1 tablet (100 mg) by mouth daily. 90 tablet 1 11/28/2024 12/03/2024 Discontinued Start: 06-18-2023 take 1 tablet by nic th once daily losartan (Cozaar) 50 MG tablet Take 1 tablet (50 mg) by mouth daily. 90 tablet 1 06/18/2023 Active Start: 06-21-2022 End: 04-11-2023 take 1 tablet by mouth once daily losartan (Cozaar) 50 MG tablet Take 50 mg by mouth daily. 0 06/21/2022 04/11/2023 Discontinued (Med list cleanup) Start: 02-20-2022 take 1 tablet by nic th in the morning losartan (COZAAR) 50 MG tablet Take 1 tablet by mouth in the morning. 30 tablet 1 02/20/2022 Active take 1 tablet by nic th once daily losartan (COZAAR) 50 MG tablet Take 50 mg by mouth daily 0 Active meloxicam 15 mg oral tablet (20 sources) Nonsteroidal Anti-inflammatory Drug Start: 01-20-2021 End: 11-27-2025 take 1 tablet by mouth once daily at mealtime meloxicam (Mobic) 15 MG tablet TAKE 1 TABLET BY MOUTH EVERY MORNING WITH FOOD TO REDUCE SWELLING. DO NOT TAKE WITH OTHER NSAIDS (IBUPROFEN, ADVIL, MOTRIN, ALEVE,OR NAPROXEN) 30 tablet 3 11/27/2024 11/27/2025 Active methylPREDNISolone 4 mg oral tablet (7 sources) Corticosteroid Start: 01-04-2025 End: 01-11-2025 methylPREDNISolone (Medrol Dospak) 4 MG tablets Follow schedule on package instructions 21 tablet 01/04/2025 01/11/2025 Active Start: 08-21-2024 End: 08-21-2024 40 mg, IntraVENous, Once, On Di 08/21/24 at 1205, For 1 dose oseltamivir 75 mg oral capsule (1 source) Neuraminidase Inhibitor Start: 08-15-2024 End: 08-20-2024 take 1 capsule by mouth twice daily oseltamivir (Tamiflu) 75 MG capsule Indications: Influenza A Infection Take 1 capsule (75 mg) by mouth 2 times daily for 5 days. 10 capsule 08/15/2024 08/20/2024 Active oxyCODONE hydrochloride 5 mg oral tablet (4 sources) Opioid Agonist Start: 02-28-2022 End: 08-27-2022 take 1 tablet by mouth every six hours as needed for pain oxyCODONE (Roxicodone) 5 MG immediate release tablet TAKE 1 TABLET BY MOUTH EVERY 6 HOURS NEEDED FOR PAIN, TAKE THE LOWEST DOSE POSSIBLE TO MANAGE PAIN. 28 tablet 0 02/28/2022 08/27/2022 Active pantoprazole 20 mg delayed release oral tablet (10 sources) Proton Pump Inhibitor Start: 02-28-2022 End: 02-28-2023 take 1 tablet by mouth in the morning pantoprazole (ProtoNix) 20 MG EC tablet TAKE 1 TABLET BY MOUTH IN THE MORNING. 30 tablet 0 02/28/2022 Active pravastatin sodium 20 mg oral tablet (5 sources) HMG-CoA Reductase Inhibitor Start: 05-06-2025 End: 06-05-2025 take 1 tablet by mouth once daily pravastatin (Pravachol) 20 MG tablet Indications: Hypercholesterolemia Take 1 tablet (20 mg) by mouth daily. 30 tablet 05/06/2025 06/05/2025 Active Start: 04-06-2025 End: 05-06-2025 take 1 tablet by mouth once daily pravastatin (Pravachol) 10 MG tablet Indications: Hypercholesterolemia Take 1 tablet (10 mg) by mouth daily. 30 tablet 04/06/2025 05/06/2025 Discontinued (Reorder) sodium chloride flush 0.9 % injection 3 mL (1 source) Start: 02-23-2022 sodium chlorid e flush 0.9 % injection 3 mL traMADol hydrochloride 50 mg oral tablet (11 sources) Opioid Agonist Start: 01-27-2025 End: 02-03-2025 take 1 tablet by mouth every six hours as needed for pain traMADol (Ultram) 50 MG tablet Indications: RUQ pain Take 1 tablet (50 mg) by mouth every 6 hours as needed for severe pain (7-10) for up to 7 days. 28 tablet 01/27/2025 02/03/2025 Active Start: 01-12-2025 End: 01-19-2025 take 1 tablet by mouth every eight hours as needed for pain traMADol (Ultram) 50 MG tablet Indications: Acute midline low back pain without sciatica , Weakness of both lower extremities Take 1 tablet (50 mg) by mouth every 8 hours as needed for severe pain (7-10) for up to 7 days. 21 tablet 01/12/2025 01/19/2025 Start: 08-15-2024 End: 08-18-2024 take 1 tablet by mouth every eight hours as needed for pain traMADol (Ultram) 50 MG tablet Indications: Rib pain on right side Take 1 tablet (50 mg) by mouth every 8 hours as needed for severe pain (7-10) for up to 3 days. 9 tablet 08/15/2024 08/18/2024 Active Start: 04-22-2024 End: 04-30-2024 take 1 tablet by mouth every eight hours as needed for pain traMADol (Ultram) 50 MG tablet Indications: Acute midline low back pain without sciatica , Weakness of both lower extremities Take 1 tablet (50 mg) by mouth every 8 hours as needed for severe pain (7-10) for up to 7 days. 21 tablet 04/22/2024 04/30/2024 Start: 04-07-2024 End: 04-14-2024 take 1 tablet by mouth every eight hours as needed for pain traMADol (Ultram) 50 MG tablet Indications: Acute midline low back pain without sciatica , Weakness of both lower extremities Take 1 tablet (50 mg) by mouth every 8 hours as needed for severe pain (7-10) for up to 7 days. 21 tablet 04/07/2024 04/14/2024 Active Start: 02-28-2022 End: 08-27-2022 take 1 tablet by mouth every six hours as needed for pain traMADol (Ultram) 50 MG tablet TAKE 1 TABLET BY MOUTH EVERY 6 HOURS NEEDED FOR PAIN, TAKE THE LOWEST DOSE POSSIBLE TO MANAGE PAIN. 28 tablet 0 02/28/2022 08/27/2022 Active Completed/Discontinued Medications Medication Drug Class(es) Dates Sig (Normalized) Sig (Original) acetaminophen 325 mg oral tablet (20 sources) Start: 03-03-2025 End: 03-03-2025 650 mg, Oral, Once, On Sun03/03/25 at 1620, For 1 dose, Maximum dose of acetaminophen is 4000 mg from all sources in 24 hours. Start: 02-19-2025 End: 02-19-2025 1,000 mg, Oral, Once, On Di 02/19/25 at 1045, For 1 dose, Preprocedure, Administer 60 minutes prior to surgery. Start: 02-19-2025 End: 02-19-2025 1,000 mg, Oral, Once, On Di 02/19/25 at 1045, For 1 dose, Preprocedure, Administer 60 minutes prior to surgery. Start: 01-04-2025 End: 01-11-2025 take 2 tablets by mouth every eight hours as needed for pain acetaminophen (Tylenol) 500 MG tablet Take 2 tablets (1,000 mg) by mouth every 8 hours as needed for mild pain (1-3) for up to 7 days. 30 tablet 01/04/2025 01/11/2025 Active Start: 02-28-2022 End: 02-28-2023 take 2 tablets by mouth every six hours as needed for pain acetaminophen (Tylenol) 325 MG tablet TAKE 2 TABLETS BY MOUTH EVERY 6 HOURS NEEDED FOR PAIN 240 tablet 0 02/28/2022 02/28/2023 Active Start: 02-23-2022 acetaminophen (TYLENOL) tablet 650 mg take 2 tablets by mo [facility] every six hours as needed for pain acetaminophen (TYLENOL) 500 MG tablet Take 1,000 mg by mouth every 6 hours as needed for Pain 0 Active take 1 tablet by nic every six hours as needed for pain acetaminophen (TYLENOL) 500 MG tablet Take 500 mg by mouth every 6 hours as needed for Pain 0 Active acetaminophen 325 mg / HYDROcodone bitartrate 5 mg oral tablet (2 sources) Opioid Agonist Start: 01-04-2025 End: 01-04-2025 1 tablet, Oral, Once, On 01/04/25 at 1130, For 1 dose, Maximum dose of acetaminophen is 4000 mg from all sources in 24 hours. [id number] 200 actuat albuterol 0.09 mg/actuat metered dose inhaler (6 sources) beta2-Adrenergic Agonist Start: 08-21-2024 End: 12-03-2024 take 2 puff(s) by inhalation every four hours as needed for wheezing albuterol 108 (90 Base) MCG/ACT inhaler Inhale 2 puffs every 4 hours as needed for wheezing. 18 g 08/21/2024 12/03/2024 Discontinued albuterol 0.833 mg/ml / ipratropium bromide 0.167 mg/ml inhalation solution (4 sources) Anticholinergic, beta2-Adrenergic Agonist Start: 08-21-2024 End: 08-21-2024 3 mL, Nebulization, Once, On Di 08/21/24 at 1310, For 1 dose ALPRAZolam 0.25 mg disintegrating oral tablet (2 sources) Benzodiazepine Start: 02-19-2025 End: 02-19-2025 take 0.25 mg by mouth once as needed for anxiety 0.25 mg, Oral, Once PRN, anxiety, Starting on Di 02/19/25 at 1032, For 1 dose, Preprocedure, Please do not administer prior to obtaining consent and/or history and physical. aspirin 81 mg chewable tablet (7 sources) Platelet Aggregation Inhibitor, Nonsteroidal Anti-inflammatory Drug Start: 11-30-2024 End: 11-30-2024 take 324 mg by mouth once 324 mg, Oral, Once, On 11/30/24 at 1255, For 1 dose Start: 02-28-2022 End: 02-28-2023 take 1 tablet by mouth twice daily at bedtime aspirin 325 MG EC tablet TAKE 1 TABLET BY MOUTH TWICE A DAY EVERY MORNING AND BEFORE BEDTIME WITH FOOD.(THIS IS TO PREVENT A BLOOD CLOT) 60 tablet 0 02/28/2022 02/28/2023 Active Start: 02-28-2022 take 1 tablet by nic th in the morning, then take 1 tablet by mouth twice daily at bedtime aspirin 325 MG EC tablet Take 1 tablet by mouth in the morning and 1 tablet before bedtime. Take 2 times a day with food for 30 days. This is for blood clot prevention.. 60 tablet 0 02/28/2022 Active calcium chloride 0.0014 meq/ml / potassium chloride 0.004 meq/ml / sodium chloride 0.103 meq/ml / sodium lactate 0.028 meq/ml injectable solution (2 sources) Start: 02-19-2025 End: 02-19-2025 take 50 mL intravenously every hour 50 mL/hr, IntraVENous, Continuous, Starting on Di 02/19/25 at 1045, Preprocedure, Upon admission to sameday - please start iv if patient does not have iv access. Use 500ml NS for patients on dialysis. chlorthalidone 25 mg oral tablet (7 sources) Thiazide-like Diuretic Start: 01-23-2024 End: 02-22-2024 take 1 tablet by mouth once daily chlorthalidone (Hygroton) 25 MG tablet Indications: Primary hypertension Take 1 tablet (25 mg) by mouth daily. 30 tablet 01/23/2024 02/13/2024 Discontinued (Side effects) 1 ml dexamethasone phosphate 4 mg/ml injection (2 sources) Corticosteroid Start: 03-18-2024 End: 03-18-2024 inject 4 mg by intramuscular injection once 4 mg, IntraMUSCular, Once, On Sun03/18/24 at 1540, For 1 dose docusate sodium 50 mg / sennosides, shelter 8.6 mg oral tablet (3 sources) Start: 03-26-2024 End: 04-15-2024 take 8.6-50 mg by mouth once daily senna-docusate (Kory-Colace) 8.6-50 MG tablet Take 1 tablet by mouth daily for 20 days. 20 tablet 03/26/2024 04/07/2024 Discontinued (Med list cleanup) gabapentin 300 mg oral capsule (3 sources) Anti-epileptic Agent Start: 03-19-2025 End: 04-18-2025 take 1 capsule by mouth three times daily gabapentin (Neurontin) 300 MG capsule Indications: Nerve pain Take 1 capsule (300 mg) by mouth 3 times daily. 90 capsule 03/19/2025 04/06/2025 Discontinued (Med list cleanup) Start: 03-16-2025 End: 03-30-2025 take 1 capsule by mouth three times daily gabapentin (Neurontin) 100 MG capsule Indications: Nerve pain Take 1 capsule (100 mg) by mouth 3 times daily for 14 days. 42 capsule 03/16/2025 03/30/2025 Active glycerin 2000 mg rectal suppository (9 sources) Non-Standardized Chemical Allergen Start: 03-03-2025 End: 04-06-2025 take 2 g rectal route every twenty-four hours as needed Glycerin, Adult, 2 g suppository Insert 1 suppository (2 g) into the rectum Daily as needed (constipation). 12 suppository 03/03/2025 04/06/2025 Discontinued (Med list cleanup) 12 hr guaiFENesin 1200 mg / pseudoephedrine hydrochloride 120 mg extended release oral tablet (9 sources) alpha-Adrenergic Agonist Start: 07-08-2022 End: 04-11-2023 take 120-1200 mg by mouth every twelve hours pseudoephedrine-gu aiFENesin ER (Mucinex D Max Strength) 120-1200 MG tablet sustained-release 12 hour Take 1 tablet by mouth 2 times daily. 20 tablet 0 07/08/2022 04/11/2023 Discontinued (Med list cleanup) 1 ml HYDROmorphone hydrochloride 1 mg/ml cartridge (2 sources) Opioid Agonist Start: 02-19-2025 End: 02-19-2025 0.5 mg, IntraVENous, Every 5 min PRN, severe pain (7-10), Starting on Di 02/19/25 at 1242, For 4 doses, Recovery (only), For Phase I. If Phase II oral narcotics have been administered in the last 60 minutes, do not administer IV narcotics unless specifically approved by provider. hydrOXYzine hydrochloride 25 mg oral tablet (16 sources) Antihistamine Start: 04-22-2024 End: 12-03-2024 take 1 tablet by mouth every eight hours as needed for anxiety and anxiety and anxiety hydrOXYzine HCl (Atarax) 25 MG tablet Indications: Anxiety Take 1 tablet (25 mg) by mouth every 8 hours as needed for anxiety. 30 tablet 04/22/2024 12/03/2024 Discontinued Start: 04-07-2024 take 1 tablet by nic th every eight hours as needed for anxiety and anxiety and anxiety hydrOXYzine HCl (Atarax) 25 MG tablet Indications: Anxiety Take 1 tablet (25 mg) by mouth every 8 hours as needed for anxiety. 30 tablet 04/07/2024 Active Start: 02-20-2022 End: 03-02-2022 take 1 tablet by mouth every eight hours as needed hydrOXYzine HCl (ATARAX) 25 MG tablet Take 1 tablet by mouth every 8 hours as needed for Itching 30 tablet 0 02/20/2022 03/02/2022 Active take 1 tablet by nic th three times daily as needed hydrOXYzine (ATARAX) 25 MG tablet Take 25 mg by mouth 3 times daily as needed for Itching 0 Active ibuprofen 600 mg oral tablet (7 sources) Nonsteroidal Anti-inflammatory Drug Start: 01-04-2025 End: 01-11-2025 take 1 tablet by mouth every six hours as needed for pain ibuprofen 600 MG tablet Take 1 tablet (600 mg) by mouth every 6 hours as needed for mild pain (1-3) for up to 7 days. 28 tablet 01/04/2025 01/06/2025 Discontinued (Alternate therapy) take 1 tablet by nic th every six hours as needed for pain ibuprofen (ADVIL;MOTRIN) 200 MG tablet T valentino 200 mg by mouth every 6 hours as needed for Pain 0 Active iopamidol (Isovue-370) 76 % injection 75 mL (2 sources) Start: 03-07-2024 End: 03-07-2024 take 75 mL intravenously once as needed 75 mL, IntraVENous, IMG once PRN, contrast, Starting on Sun03/07/24 at 0244, For 1 dose isopropyl alcohol 0.7 ml/ml medicated pad (2 sources) Start: 02-19-2025 End: 02-19-2025 2 Swab (1 Package), Topical, Once, On Sun02/19/25 at 1015, For 1 dose, Preprocedure, Flip ampule around in paper sleeve to expose swab tip. Shake well. With sleeve on ampule, crush at dot to pop. Squeeze to wet swab tip. Swab around nostril rims 8 times in each direction. Squeeze to rewet swab tip and repeat. Repeat for other nostril. Caution : Do not extend in nose beyond swab tip. Appy to skin only. Discard after use. 1 ml ketorolac tromethamine 30 mg/ml cartridge (4 sources) Nonsteroidal Anti-inflammatory Drug, Cyclooxygenase Inhibitor Start: 03-26-2024 End: 03-26-2024 inject 30 mg by intramuscular injection once 30 mg, IntraMUSCular, Once, On Sun03/26/24 at 1720, For 1 dose Start: 03-18-2024 End: 03-18-2024 15 mg, IntraVENous, Once, On Sun03/18/24 at 1540, For 1 dose lactulose 667 mg/ml oral solution (2 sources) Osmotic Laxative Start: 03-03-2025 End: 03-03-2025 20 g, Oral, Once, On Sun03/03/25 at 1620, For 1 dose lidocaine 0.05 mg/mg medicated patch (8 sources) Antiarrhythmic, Amide Local Anesthetic Start: 03-16-2025 End: 06-14-2025 apply 1 dose transdermal route once daily lidocaine (Lidoderm) 5 % patch Indications: Nerve pain Apply 1 patch topically daily. Apply to painful area 12 hours per day, remove for 12 hours. 30 patch 2 03/16/2025 04/06/2025 Discontinued (Med list cleanup) Start: 01-04-2025 End: 01-14-2025 apply 1 dose transdermal route once daily Lidocaine 4 % patch Place 1 patch on the skin daily for 10 days. 10 patch 01/04/2025 01/14/2025 Active 1 ml LORazepam 2 mg/ml injection (2 sources) Benzodiazepine Start: 02-19-2025 End: 02-19-2025 0.5 mg, IntraVENous, Once PRN, for anxiety or muscle spasm., Starting on Di 02/19/25 at 1242, For 1 dose, Recovery (only), For IV doses dilute dose with 1ml NS. 10 ml methocarbamol 100 mg/ml injection (11 sources) Muscle Relaxant Start: 02-19-2025 End: 02-19-2025 1,000 mg, IntraVENous, Administer over 5 Minutes, Once, On Di 02/19/25 at 1330, For 1 dose, Recovery (only), Maximum dose: 3 g/day for no more than 3 consecutive days Start: 02-19-2025 End: 02-19-2025 1,000 mg, IntraVENous, Admin ister over 5 Minutes, Once, On Di 02/19/25 at 1330, For 1 dose, Recovery (only), Maximum dose: 3 g/day for no more than 3 consecutive days Start: 01-04-2025 End: 01-27-2025 take 1 tablet by mouth twice daily methocarbamol (Robaxin) 500 MG tablet Take 1 tablet (500 mg) by mouth 2 times daily for 10 days. 20 tablet 01/04/2025 01/27/2025 Discontinued (Med list cleanup) 1 ml morphine sulfate 4 mg/ml cartridge (4 sources) Opioid Agonist Start: 03-26-2024 End: 03-26-2024 take 1 dose by mouth every hour 4 mg, IntraMUSCular, Once, On Sun03/26/24 at 1830, For 1 dose, If oral and IV narcotics ordered, use oral first and only use IV if oral is ineffective or cannot take oral. Do Not give oral and IV within 1 hour of each other unless specifically ordered. Start: 03-07-2024 End: 03-07-2024 take 1 dose by mouth every hour 4 mg, IntraVENous, Once, On Sun03/07/24 at 0220, For 1 dose, If oral and IV narcotics ordered, use oral first and only use IV if oral is ineffective or cannot take oral. Do Not give oral and IV within 1 hour of each other unless specifically ordered. ondansetron 4 mg oral tablet (18 sources) Serotonin-3 Receptor Antagonist Start: 02-23-2025 End: 04-06-2025 take 1 tablet by mouth every eight hours as needed for nausea and vomiting ondansetron (Zofran) 4 MG tablet Take 1 tablet (4 mg) by mouth every 8 hours as needed for nausea or vomiting. 30 tablet 02/23/2025 04/06/2025 Discontinued (Med list cleanup) Start: 03-07-2024 End: 03-07-2024 4 mg, IntraVENous, Once, On Sun03/07/24 at 0220, For 1 dose Start: 02-28-2022 End: 02-28-2023 take 1 tablet by mouth every eight hours as needed for nausea ondansetron ODT (Zofran-ODT) 4 MG disintegrating tablet TAKE 1 TABLET BY MOUTH EVERY 8 HOURS NEEDED FOR NAUSEA OR VOMITING. 30 tablet 0 02/28/2022 02/28/2023 Active polyethylene glycol 3350 17245 mg powder for oral solution (9 sources) Osmotic Laxative Start: 03-03-2025 End: 04-06-2025 take 17 g by mouth every twenty-four hours as needed polyethylene glycol, PEG, 3350 (MiraLax) 17 GM/SCOOP powder Take 17 g by mouth Daily as needed (constipation). 116 g 03/03/2025 04/06/2025 Discontinued (Med list cleanup) predniSONE 20 mg oral tablet (9 sources) Start: 03-19-2025 End: 04-06-2025 predniSONE (Deltasone) 20 MG tablet Take 3 tabs (60mg) daily for 5 days, then take 2 tabs (40mg) daily for 3 days, then take 1 tab (20mg) daily for 2 days. 23 tablet 03/19/2025 04/06/2025 Discontinued (Med list cleanup) Start: 03-10-2025 End: 03-24-2025 take 4 tablets by mouth once daily predniSONE (Deltasone) 10 MG tablet Take 4 tablets (40 mg) by mouth daily for 5 days. 20 tablet 03/10/2025 03/24/2025 Start: 08-21-2024 End: 08-26-2024 take 2 tablets by mouth once daily predniSONE (Deltasone) 20 MG tablet Take 2 tablets (40 mg) by mouth daily for 5 days. 10 tablet 08/21/2024 08/26/2024 Active rosuvastatin calcium 5 mg oral tablet (20 sources) HMG-CoA Reductase Inhibitor Start: 12-12-2024 End: 06-28-2025 take 1 tablet by mouth once daily rosuvastatin (Crestor) 5 MG tablet Take 1 tablet (5 mg) by mouth daily. 90 tablet 1 12/30/2024 04/06/2025 Discontinued (Med list cleanup) Start: 09-18-2023 End: 12-03-2024 take 1 tablet by mouth once daily rosuvastatin (Crestor) 5 MG tablet Indications: Mixed hyperlipidemia TAKE 1 TABLET BY MOUTH DAILY 90 tablet 1 04/07/2024 12/03/2024 Discontinued (Non-compliance) 5 ml sodium chloride 9 mg/ml injection (20 sources) Start: 02-19-2025 End: 02-19-2025 take 50 mL intravenously every hour 50 mL/hr, IntraVENous, Continuous, Starting on Di 02/19/25 at 1030, Preprocedure, Upon admission to sameday - please start iv if patient does not have iv access. Start: 02-19-2025 End: 02-19-2025 take 5-40 mL intravenously every twelve hours 5-40 mL, IntraVENous, Every 12 hours, First dose on Di 02/19/25 at 1045, Preprocedure, For Line Patency: Peripheral IV = 5 mL; Midline or Central Line = 10 mL/lumen. If following IV push medication, administer flush at same rate as the IV push. Flush volume is determined by type of infusion therapy being given. For non-viscous solutions use: Peripheral IV = 5 mL Midline or Central Line = 10 mL/lumen For viscous solutions (i.e. blood components, parenteral nutrition, contrast media, or after obtaining blood sample) use: Peripheral IV = 10 mL Midline or Central Line = 20 mL/lumen Start: 02-19-2025 End: 02-19-2025 10 mL, IntraVENous, Every 12 hours scheduled (2 times per day), First dose on Di 02/19/25 at 1015, Preprocedure Start: 02-19-2025 End: 02-19-2025 take 100 mL intravenously every hour as needed, then take 20 mL intravenously every hour as needed 5-250 mL/hr, IntraVENous, PRN, if patient receiving piggyback infusions and maintenance fluids are not ordered OR KVO fluids to protect IV site / prevent frequent line interruptions / long duration, Starting on Di 02/19/25 at 1018, Preprocedure, For piggyback infusion, administer at same rate as piggyback for a total of 25 mL. Enter 25 mL into dose field and piggyback rate into rate field of order. If piggyback is infusing at a rate less than 100 mL/hr, enter 25 mL into dose field and 100 mL/hr into rate field of order. For KVO fluids, enter rate of 20 mL/hr or less into rate field of order. Start: 02-19-2025 End: 02-19-2025 5-40 mL, IntraVENous, PRN, l ine care, After every IV line use, Starting on Di 02/19/25 at 1018, Preprocedure, For Line Patency: Peripheral IV = 5 mL; Midline or Central Line = 10 mL/lumen. If following IV push medication, administer flush at same rate as the IV push. Flush volume is determined by type of infusion therapy being given. For non-viscous solutions use: Peripheral IV = 5 mL Midline or Central Line = 10 mL/lumen For viscous solutions (i.e. blood components, parenteral nutrition, contrast media, or after obtaining blood sample) use: Peripheral IV = 10 mL Midline or Central Line = 20 mL/lumen Start: 08-21-2024 End: 08-21-2024 1,000 mL, IntraVENous, at 1, 000 mL/hr, Administer over 1 Hours, Once, On Di 08/21/24 at 1205, For 1 dose Start: 03-07-2024 End: 03-07-2024 1,000 mL, IntraVENous, at 1, 000 mL/hr, Administer over 1 Hours, Once, On Sun03/07/24 at 0220, For 1 dose Start: 02-23-2022 End: 02-23-2022 0.9 % sodium chloride bolus technetium Tc-99m medronate (Tc-MDP) radio-isotope injection 23 millicurie (2 sources) Start: 01-19-2025 End: 01-19-2025 23 millicurie, IntraVENous, Once, On Sun01/19/25 at 0930, For 1 dose tiZANidine 2 mg oral tablet (15 sources) Central alpha-2 Adrenergic Agonist Start: 03-16-2025 End: 04-06-2025 take 1 tablet by mouth every eight hours as needed for muscle spasms and muscle spasms tiZANidine (Zanaflex) 2 MG tablet Indications: Muscle spasm Take 1 tablet (2 mg) by mouth every 8 hours as needed for muscle spasms for up to 10 days. 30 tablet 03/16/2025 04/06/2025 Discontinued (Med list cleanup) Start: 02-13-2024 End: 03-11-2024 take 1 tablet by mouth every eight hours as needed for muscle spasms and muscle spasms tiZANidine (Zanaflex) 4 MG tablet Indications: Muscle spasm Take 1 tablet (4 mg) by mouth every 8 hours as needed for muscle spasms for up to 7 days. 21 tablet 02/13/2024 03/11/2024 Discontinued (Therapy completed) Problems Active Problems Problem Classification Problem Date Documented Da te Episodic/Chronic Abdominal pain (20 sources) Right upper quadrant pain; Translations: [Right lower quadrant pain] Onset: 03-11-2024 Resolved: 03-16-2025 03-07-2024 Episodic Anxiety disorders (20 sources) Anxiety; Translations: [Anxiety disorder, unspecified] Onset: 02-20-2022 02-20-2022 Chronic Disorders of lipid metabolism (20 sources) Mixed hyperlipidemia; Translations: [Mixed hyperlipidemia] Onset: 01-16-2024 09-18-2023 Chronic Essential hypertension (20 sources) Essential hypertension; Translations: [Essential (primary) hypertension] Onset: 01-24-2022 01-24-2022 Chronic Genitourinary symptoms and ill-defined conditions (1 source) Pyuria; Translations: [Other nonspecific findings on examination of urine] 05-20-2024 Episodic Malaise and fatigue (20 sources) Fatigue; Translations: [Chronic fatigue, unspecified] Onset: 01-06-2025 01-06-2025 Chronic Osteoarthritis (20 sources) Osteoarthritis; Translations: [Unspecified osteoarthritis, unspecified site] Onset: 10-17-2019 Resolved: 09-17-2023 10-17-2019 Chronic Other acquired deformities (1 source) Spondylolisthesis; Translations: [Spondylolisthesis, lumbosacral region] 03-17-2024 Episodic Other aftercare (3 sources) Surgical follow-up; Translations: [Encounter for follow-up examination after completed treatment for conditions other than malignant neoplasm] 03-02-2025 Episodic Other connective tissue disease (20 sources) History of total hip arthroplasty; Translations: [Presence of right artificial hip joint] Onset: 02-20-2022 Chronic Other connective tissue disease (5 sources) History of repair of hip joint; Translations: [Presence of right artificial hip joint] 03-01-2023 Chronic Other connective tissue disease (1 source) Tendinitis of hip; Translations: [Hip abductor tendinitis, right] Episodic Other connective tissue disease (20 sources) Spasm; Translations: [Other muscle spasm] Onset: 02-13-2024 Resolved: 12-11-2024 02-13-2024 Episodic Other connective tissue disease (11 sources) Neuralgia; Translations: [Neuralgia and neuritis, unspecified] Onset: 03-16-2025 03-16-2025 Episodic Other connective tissue disease (2 sources) Neuralgia and neuritis, unspecified; Translations: [Neuralgia and neuritis, unspecified] Onset: 03-16-2025 Episodic Other connective tissue disease (2 sources) Other muscle spasm; Translations: [Other muscle spasm] Onset: 03-16-2025 Episodic Other diseases of bladder and urethra (1 source) Hypertrophy of bladder; Translations: [Other specified disorders of bladder] 05-20-2024 Chronic Other gastrointestinal disorders (2 sources) Constipation; Translations: [Constipation, unspecified] 03-03-2025 Episodic Other gastrointestinal disorders (2 sources) Constipation, unspecified; Translations: [Constipation, unspecified] Onset: 03-03-2025 Episodic Other hereditary and degenerative nervous system conditions (6 sources) Finding of scapular structure; Translations: [Other specified extrapyramidal and movement disorders] 02-27-2024 Chronic Other nervous system disorders (2 sources) Other chronic pain; Translations: [Other chronic pain] Onset: 01-04-2025 Chronic Other nervous system disorders (1 source) Skin sensation disturbance; Translations: [Unspecified disturbances of skin sensation] 03-31-2025 Episodic Other nervous system disorders (1 source) Unspecified disturbances of skin sensation; Translations: [Disturbance of skin sensation] Onset: 03-31-2025 Episodic Other nervous system disorders (1 source) Numbness of lower limb ; Translations: [Anesthesia of skin] 04-03-2025 Episodic Other nervous system disorders (1 source) Anesthesia of skin; Translations: [Anesthesia of skin] Onset: 04-06-2025 Episodic Other upper respiratory disease (2 sources) Bronchospasm; Translations: [Acute bronchospasm] 08-21-2024 Episodic Residual codes; unclassified (1 source) Influenza vaccination declined; Translations: [Immunization not carried out because of patient refusal] 04-30-2024 Episodic Spondylosis; intervertebral disc disorders; other back problems (8 sources) Degeneration of thoracic intervertebral disc; Translations: [Other intervertebral disc degeneration, thoracic region] Onset: 01-19-2025 01-19-2025 Chronic Unclassified (1 source) Strain of muscle of hip; Translations: [Strain of iliopsoas muscle, right, initial encounter] Unclassified (2 sources) Post-op; Translations: [Post-op] Onset: 03-02-2025 Unclassified (2 sources) ER Follow-up; Translations: [ER Follow-up] Onset: 01-05-2025 Past or Other Problems Problem Classification Problem Date Documented Date Episodic/Chronic Biliary tract disease (20 sources) Chronic cholecystitis; Translations: [Chronic cholecystitis] Onset: 02-18-2025 Resolved: 03-16-2025 02-18-2025 Episodic Influenza (20 sources) Influenza due to Influenza A virus; Translations: [Influenza due to other identified influenza virus with other respiratory manifestations] Onset: 08-15-2024 Resolved: 12-03-2024 08-15-2024 Episodic Mood disorders (20 sources) Mood disorders Onset: 09-17-2023 09-17-2023 Nonspecific chest pain (8 sources) Chest wall pain; Translations: [Chest pain] Onset: 08-15-2024 Resolved: 12-11-2024 11-30-2024 Episodic Other connective tissue disease (20 sources) Other symptoms and signs involving the musculoskeletal system; Translations: [Other musculoskeletal symptoms referable to limbs] Onset: 04-07-2024 Resolved: 12-11-2024 04-07-2024 Episodic Other connective tissue disease (20 sources) Muscle pain; Translations: [Myalgia, unspecified site] Onset: 01-06-2025 Resolved: 04-06-2025 01-06-2025 Episodic Other connective tissue disease (2 sources) Myalgia, unspecified site; Translations: [Myalgia, unspecified site] Onset: 01-06-2025 Episodic Other diseases of kidney and ureters (20 sources) Cyst of kidney; Translations: [Cyst of kidney, acquired] Onset: 05-26-2024 05-26-2024 Episodic Other lower respiratory disease (20 sources) Rib pain; Translations: [Pleurodynia] Onset: 08-15-2024 Resolved: 12-11-2024 08-15-2024 Episodic Other lower respiratory disease (3 sources) Dyspnea; Translations: [Shortness of breath] Onset: 08-21-2024 08-21-2024 Episodic Other lower respiratory disease (1 source) Shortness of breath; Translations: [Shortness of breath] Onset: 08-21-2024 Episodic Other lower respiratory disease (2 sources) Pleurodynia; Translations: [Pleurodynia] Onset: 08-15-2024 Episodic Other non-traumatic joint disorders (1 source) Pain in right hip joint; Translations: [Pain in right hip] Episodic Other non-traumatic joint disorders (20 sources) Bilateral shoulder joint pain; Translations: [Pain in right shoulder] Onset: 01-06-2025 01-06-2025 Episodic Other non-traumatic joint disorders (2 sources) Pain in right shoulder; Translations: [Pain in right shoulder] Onset: 01-06-2025 Episodic Other non-traumatic joint disorders (2 sources) Pain in left shoulder; Translations: [Pain in left shoulder] Onset: 01-06-2025 Episodic Other screening for suspected conditions (not mental disorders or infectious disease) (20 sources) Imaging of biliary tract abnormal; Translations: [Abnormal results of function studies of other organs and systems] Onset: 02-18-2025 Resolved: 04-06-2025 02-18-2025 Episodic Other upper respiratory disease (2 sources) Acute bronchospasm; Translations: [Acute bronchospasm] Onset: 08-21-2024 Episodic Other upper respiratory infections (20 sources) Viral upper respiratory tract infection; Translations: [Acute upper respiratory infection, unspecified] Onset: 08-15-2024 Resolved: 12-03-2024 04-11-2023 Episodic Spondylosis; intervertebral disc disorders; other back problems (20 sources) Backache; Translations: [Dorsalgia, unspecified] Onset: 02-13-2024 Resolved: 12-11-2024 Episodic Results Test Name Value Interpretation Reference Range Facility Page 06-02-2025 ALT [Catalytic activity/Vol] 11 U/L 9 - 46 U/L [facility] Edmund 06-02-2025 AST [Catalytic activity/Vol] 16 U/L 10 - 35 U/L [facility] Lipid 1996 panelon Cholesterol [Mass/Vol] 186 mg/dL NINF - 200 mg/dL [facility] Cholesterol in HDL [Mass/Vol] 56 mg/dL > OR = 40 [facility] Cholesterol in LDL [Mass/Vol] 111 mg/dL High mg/dL (calc) [facility] Comment on above: Reference range: <10 0 Desirable range <100 mg/dL for primary prevention; <70 mg/dL for patients with CHD or diabetic patients with > or = 2 CHD risk factors. LDL-C is now calculated using the Riki calculation, which is a validated novel method providing better accuracy than the Friedewald equation in the estimation of LDL-C. Corona MAGANA et al. NAZIA. 2013;310(19): 1031-0407 (http://education.WolfGIS.[employer] Micro/faq/IVB366) Cholesterol non HDL [Mass/Vol] 130 mg/dL High [facility] Comment on above: For patients with di abetes plus 1 major ASCVD risk factor, treating to a non-HDL-C goal of <100 mg/dL (LDL-C of <70 mg/dL) is considered a therapeutic option. Cholesterol.total/Devora sterol in HDL [Mass ratio] 3.3 {ratio} [facility] Interpretation and review of laboratory results Abnormal [facility] Triglyceride [Mass/Vol] 86 mg/dL [facility] - 150 mg/dL [facility] No Panel Informationon 06-02 [facility] Progress Noteon 06-01-2025 Progress Note Venipuncture done by [facility] 36on 05-06-2025 36 Pt agreed to the increase in medication - please send it in and sign orders [facility] Progress Noteon 05-04-2025 Progress Note Lab/venipuncture completed by [facility] 36on 04-13-2025 36 Message released to patient as written. Patient's further questions if applicable: NA pt notes he will hydrated and see if there are changes Were all questions from office addressed or relayed to the patient from encounter: Yes Normal [facility] 36 Lm to return call- g sanaz information below Normal [facility] 36 Patient could be slightly dehydrated. If not having any other symptoms such as shortness of breath or chest pain or headache, recommend increasing fluids as he may be slightly dehydrated. If the visual symptoms persist-would recommend seeing an eye doctor for further evaluation. If he has the vision change and shortness of breath or chest pain or significant dizziness, severe headache-would recommend emergency room evaluation at that time. Normal [facility] 36 Pt stopped in to the office today- pt states he was at work and broke out in a sweat and started seeing floaters in both eyes- did not seem to black but was slightly lightheaded- pt wonders if he should be concerned about this Pt states he is still seeing floaters [facility] Office Visiton 04-06-2025 Follow-up visit [id number] Cortney Acosta 1955 M Date Provider Department Center 04/06/2025 [id number] PEREZ [facility] Family History Problem Relation Age of Onset Emphysema Mother Cancer Father Family Status - Relation Status Age at Mother Father Level of Service:51953 PA OFFICE/OUTPATIENT ESTABLISHED MOD MDM 30 MIN Reason for Visit and Comments: Follow-up [011734] [facility] Progress Noteon 04-06-2025 Progress Note Controlled. Blood pressure 131/81. Continue losartan 50 mg [facility] Progress Note Symptoms well-controlled with amitriptyline 50 mg nightly [facility] Progress Note Did not tolerate rosuvastatin. We will try pravastatin and check lipids in 4 weeks [facility] Progress Note Much improved, iza nue BuSpar 7.5 mg twice daily and amitriptyline 50 mg at bedtime [facility] Progress Note 04/06/2025 Cortney Nunez Karla (: 1955) is a 69 y.o. male , Established patient, here for evaluation of the following chief complaint(s): Follow-up ASSESSMENT/PLAN: 1. Hypercholesterolemia Assessment & Plan: Did not tolerate rosuvastatin. We will try pravastatin and check lipids in 4 weeks Orders: - pravastatin (Pravachol) 10 MG tablet; Take 1 tablet (10 mg) by mouth daily., Starting 04/06/2025, Until Sun05/06/2025, Normal - Lipid panel - AST - ALT 2. Nerve pain Assessment & Plan: Symptoms well-controlled with amitriptyline 50 mg nightly 3. Primary hypertension Assessment & Plan: Controlled. Blood pressure 131/81. Continue losartan 50 mg 4. Anxiety Assessment & Plan: Much improved, continue BuSpar 7.5 mg twice daily and amitriptyline 50 mg at bedtime Follow up in about 1 month (around 05/06/2025). SUBJECTIVE/OBJECTIVE: EVETTE - Cortney Acosta (: 1955) is a 69 y.o. male , Established patient, here for the evaluation of the following chief complaint(s): Follow-up Patient presents for nerve pain that he was having on his abdomen. Reports that has pretty much completely subsided with his recent increase of amitriptyline 50 mg nightly. He did see a neurologist who had increased the dose from the previous 10 mg. He denies any other concerns or complaints now and feels pretty good. He had gone to the emergency room for some lower leg symptoms that have now resolved. They did do a CT of the abdomen pelvis which showed some cardiac calcifications. He is very active and denies any shortness of breath or chest pain. He previously was on a statin but did not tolerate. He is open to trying a different cholesterol medication. Reports he is sleeping well and his anxiety is well-controlled. Is planning on going back to work tomorrow Current Medications[1] Review of Systems Constitutional: Negative. Cardiovascular: Negative. Gastrointestinal: Negative. Genitourinary: Negative. Neurological: Negative. Vitals: 04/06/25 0959 BP: 131/81 Pulse: 89 Resp: 20 Temp: 37.4 ?C (99.3 ?F) TempSrc: Infrared SpO2: 97% Weight: 145 lb 11.2 oz (66.1 kg) Physical Exam Vitals reviewed. Constitutional: General: He is not in acute distress. Appearance: Normal appearance. He is not ill-appearing. HENT: Head: Normocephalic and atraumatic. Mouth/Throat: Mouth: Mucous membranes are moist. Pharynx: Oropharynx is clear. No posterior oropharyngeal erythema. Eyes: Conjunctiva/sclera: Conjunctivae normal. Neck: Vascular: No carotid bruit. Cardiovascular: Rate and Rhythm: Normal rate and regular rhythm. Pulses: Normal pulses. Heart sounds: Normal heart sounds. Pulmonary: Effort: Pulmonary effort is normal. Breath sounds: Normal breath sounds. Musculoskeletal: Right lower leg: No edema. Left lower leg: No edema. Lymphadenopathy: Cervical: No cervical adenopathy. Skin: General: Skin is warm and dry. Neurological: Mental Status: He is alert and oriented to person, place, and time. Psychiatric: Mood and Affect: Mood normal. Behavior: Behavior normal. Thought Content: Thought content normal. An electronic signature was used to authenticate this note. Ilan Tariq, HOME MANAGER - [employer] BED INST[employer]ER 04/06/2025 4:43 PM [1] Current Outpatient Medications Medication Sig Dispense Refill acetaminophen (Tylenol) 500 MG tablet Take 1,000 mg by mouth every 8 hours as needed for mild pain (1-3). amitriptyline (Elavil) 50 MG tablet Take 50 mg by mouth. busPIRone (Buspar) 7.5 MG tablet Take 1 tablet (7.5 mg) by mouth 2 times daily. 180 tablet 1 losartan (Cozaar) 100 MG tablet Take 0.5 tablets (50 mg) by mouth Nightly. meloxicam (Mobic) 15 MG tablet TAKE 1 TABLET BY MOUTH EVERY MORNING WITH FOOD TO REDUCE SWELLING. DO NOT TAKE WITH OTHER NSAIDS (IBUPROFEN, ADVIL, MOTRIN, ALEVE,OR NAPROXEN) 30 tablet 3 pravastatin (Pravachol) 10 MG tablet Take 1 tablet (10 mg) by mouth daily. 30 tablet 0 No current facility-administered medications for this visit. [facility] Progress Note Patient was identifi ed by name and Date of . Normal [facility] Absolute lymphocyte countOrd ered By: Roque Wood on 04-03-2025 Lymphocytes Auto (Unsp spec) [#/Vol] 1.74 10*3/uL 0.83-4.51 [facility] Absolute neutrophil countOrd ered By: Roque Wood on 04-03-2025 Neutrophils (Bld) [#/Vol] 5.5 10*3/uL 2.0-7.7 [facility] Anion gap in Serum or Plasma Ordered By: Roque Wood on 04-03-2025 Anion gap [Moles/Vol] 12 mmol/L 5- [facility] Automated lymphocyte count a s percentage of total leukocytesOrdered By: Roque Wood on 04-03-2025 Lymphocytes/100 WBC Auto (Unsp spec) 22.2 % - [facility] BUN/creatinine ratioOrdered By: Roque Wood on 04-03-2025 Urea nitrogen/Creatinine [Mass ratio] 18.6 mg/mg 10- [facility] Basophil percentageOrdered B y: Roque Wood on 04-03-2025 Basophils/100 WBC (Bld) 0.5 % 0-1 [facility] Bilirubin, totalOrdered By: Roque Wood on 04-03-2025 Bilirubin [Mass/Vol] 0.67 mg/dL 0.00-1.30 [facility] CBC W/Diff, Automatedon 03-23 Absolute Lymph 1.74 X10 3/uL Normal 0.83-4.51 [facility] Comment on above: Performed By: #### L 100.0100 #### [facility] [address] [place], [address] Absolute Neut 5.5 X10 3/uL Normal 2.0-7.7 [facility] Comment on above: Performed By: #### L 100.0100 #### [facility] [address] [place], [address] Basophils/100 WBC (Bld) 0.5 % Normal 0-1 [facility] System Comment on above: Performed By: #### L 100.0100 #### [facility] [address] [place], [address] Eosinophils/100 WBC (Bld) 0.6 % Normal 0-5 [facility] Comment on above: Performed By: #### L 100.0100 #### [facility] [address] [place], [address] Erythrocyte distribution width (RBC) [Ratio] 14.3 % Normal 11.6-14.6 [facility] Comment on above: Performed By: #### L 100.0100 #### [facility] [address] [place], [address] Hematocrit (Bld) [Volume fraction] 40.7 % Normal 40-54 [facility] Comment on above: Performed By: #### L 100.0100 #### [facility] [address] [place], [address] Hemoglobin (Bld) [Mass/Vol] 13.8 g/dL Normal 13.0-16.5 [facility] Comment on above: Performed By: #### L 100.0100 #### [facility] [address] [place], [address] IG% 0.400 Normal 0.0-0.9 [facility] Comment on above: Result Comment: IG% - Immature Granulocytes (promyelocytes, myelocytes and metamyelocytes) > 1% indicates that a LEFT SHIFT is Present. Performed By: #### L 100.0100 #### [facility] [address] [place], [address] Lymphocytes/100 WBC (Bld) 22.2 % Normal 19-41 [facility] Comment on above: Performed By: #### L 100.0100 #### [facility] [address] [place], [address] MCH (RBC) [Entitic mass] 31.2 pg Normal 27.0-32.0 [facility] Comment on above: Performed By: #### L 100.0100 #### [facility] [address] [place], [address] MCHC (RBC) [Mass/Vol] 33.9 g/dL Normal 32-36 [facility] Comment on above: Performed By: #### L 100.0100 #### [facility] [address] [place], [address] MCV (RBC) [Entitic vol] 92.1 fL Normal 80-94 [facility] Comment on above: Performed By: #### L 100.0100 #### [facility] [address] [place], [address] Monocytes/100 WBC (Bld) 6.9 % Normal 0-10 [facility] Comment on above: Performed By: #### L 100.0100 #### [facility] [address] [place], [address] Neutrophils/100 WBC (Bld) 69.4 % Normal 47-70 [facility] Comment on above: Performed By: #### L 100.0100 #### [facility] [address] [place], [address] Nucleated RBC (Bld) [#/Vol] 0 10*3/uL Normal 0-5 [facility] Comment on above: Performed By: #### L 100.0100 #### [facility] [address] [place], [address] Platelet mean volume (Bld) [Entitic vol] 8.8 fL Normal 6.2-12.0 [facility] Comment on above: Performed By: #### L 100.0100 #### [facility] [address] [place], [address] Platelets (Bld) [#/Vol] 270 10*3/uL Normal 150-450 [facility] Comment on above: Performed By: #### L 100.0100 #### [facility] [address] [place], [address] RBC (Bld) [#/Vol] 4.42 10*6/uL Low 4.6-6.2 [facility] Comment on above: Performed By: #### L 100.0100 #### [facility] [address] [place], [address] RDW SD 48.8 fl High 35.1-43.9 [facility] Comment on above: Performed By: #### L 100.0100 #### [facility] [address] [place], [address] WBC (Bld) [#/Vol] 7.9 10*3/uL Normal 4.4-11.0 [facility] Comment on above: Performed By: #### L 100.0100 #### [facility] [address] [place], [address] CTA Abd w/Runoff W/WO Contra ston 04-03-2025 CTA Abd w/Runoff W/WO Contrast [facility] Imaging Services [address] [place] [address] CTA Abd w/Runoff W/WO Contrast MR#: [id number] Acct: [id number] Name: CORTNEY ACOSTA Rep #: [id number] : 1955 M 69 From: Cassius valencia MD PCP: Dr. Anthony Chamorro MD Status: REG ER Study: CTA Abd w/Runoff W/WO Contrast Date of Exam: 0 04/03/25 Exam# [id number] Ordering Dr: Roque Wood DO PROCEDURE: CTA ABD W/RUNOFF W/WO CONTRAST 04/03/2025 REASON FOR EXAM: LOW BACK PIAN, BLE PAIN AND COLD SENSATION Delete TECHNIQUE: Procedure Code: [id number] Modality: CT Procedure: CTA ABD W/RUNOFF W/WO CONTRAST One or more dose reduction techniques were used (e.g., Automated exposure control, adjustment of the mA and/or kV according to patient size, use of iterative reconstruction technique). Multiplanar Sagittal and Coronal images were obtained. 3D and or MIPS post processing was performed CONTRAST: Isovue 370 VOLUME: 100 mL RADIATION DOSE SUMMARY: CTDlvol: 8.8 mGy DLP: 938.45 mGycm COMPARISON: None FINDINGS: Aorta: Mild non stenotic calcific plaques in the infrarenal abdominal aorta. Celiac: Widely patent. SMA: Widely patent CULLEN : Widely patent Right Renal: Unremarkable Left Renal: Unremarkable RIGHT Iliac Arteries: Common Iliac: Unremarkable External Iliac: Unremarkable Internal Iliac: Unremarkable LEFT Iliac Arteries: Common Iliac: Unremarkable External Iliac: Unremarkable Internal Iliac: Unremarkable RIGHT Lower Extremity: Common Femoral: Unremarkable Superficial Femoral: Unremarkable Deep Femoral: Unremarkable Popliteal: Unremarkable Anterior Tibial: Unremarkable Tibioperoneal Trunk: Unremarkable Posterior Tibial: Unremarkable Peroneal: Unremarkable Dorsalis Pedis: Unremarkable LEFT Lower Extremity: Common Femoral: Unremarkable Superficial Femoral: Unremarkable Deep Femoral: Unremarkable Popliteal: Unremarkable Anterior Tibial: Unremarkable Tibioperoneal Trunk: Unremarkable Posterior Tibial: Unremarkable Peroneal: Unremarkable Dorsalis Pedis: Unremarkable. Other Findings: Coronary artery calcification. Calcified right hilar lymph nodes. Calcified granuloma in the right lower lobe. Diffuse fatty infiltration of the liver. Subcentimeter cyst is seen in the lateral aspect of the left lobe of the liver. Spleen and pancreas are unremarkable. Moderate amount of fecal material is seen in the colon. Status post right total hip replacement. CT/CTA Abd w/Runoff W/WO Contrast IMPRESSION: Normal CT a of the abdominal aorta and bilateral lower extremity runoff. Other findings as described above. Reading Location: [facility] CC: Dr. Anthony Chamorro MD; Dr. Roque Wood DO Manager Of Health: Signed Normal [facility] Carbon dioxide, total [Moles /volume] in Central venous bloodOrdered By: Roque Wood on 04-03-2025 CO2 [Moles/Vol] 24.7 mmol/L 21.0-32.0 [facility] Chloride assayOrdered By: Merlin Wood on 04-03-2025 Chloride [Moles/Vol] 101 mmol/L 98-108 [facility] Comprehensive Metabolic Prof ilon 04-03-2025 Albumin [Mass/Vol] 4.0 g/dL Normal 3.4-4.8 [facility] Comment on above: Performed By: #### L 501.9520, L506.0400, L500.4050, L501.2450, L501.51438, L501.9985 #### [facility] [address] [place], [address] Albumin/Globulin [Mass ratio] 1.5 {ratio} Normal 0.9-2.4 [facility] Comment on above: Performed By: #### L 501.9520, L506.0400, L500.4050, L501.2450, L501.11590, L501.9985 #### [facility] [address] [place], [address] ALK PHOS 65 U/L Normal 40-129 [facility] Comment on above: Performed By: #### L 501.9520, L506.0400, L500.4050, L501.2450, L501.95282, L501.9985 #### [facility] [address] [place], [address] ALT [Catalytic activity/Vol] 20 U/L Normal <=46 [facility] Comment on above: Performed By: #### L 501.9520, L506.0400, L500.4050, L501.2450, L501.69481, L501.9985 #### [facility] [address] [place], [address] AST [Catalytic activity/Vol] 20 U/L Normal <=37 [facility] Comment on above: Performed By: #### L 501.9520, L506.0400, L500.4050, L501.2450, L501.27293, L501.9985 #### [facility] [address] [place], [address] Bilirubin [Mass/Vol] 0.67 mg/dL Normal 0.00-1.30 [facility] Comment on above: Performed By: #### L 501.9520, L506.0400, L500.4050, L501.2450, L501.31114, L501.9985 #### [facility] [address] [place], [address] BUN/CRE 18.6 RATIO Normal 10-20 [facility] Comment on above: Performed By: #### L 501.9520, L506.0400, L500.4050, L501.2450, L501.85619, L501.9985 #### [facility] [address] [place], [address] Calcium [Mass/Vol] 9.1 mg/dL Normal 7.6-11.0 [facility] Comment on above: Performed By: #### L 501.9520, L506.0400, L500.4050, L501.2450, L501.46900, L501.9985 #### [facility] [address] [place], [address] Chloride [Moles/Vol] 101 mmol/L Normal 98-108 [facility] Comment on above: Performed By: #### L 501.9520, L506.0400, L500.4050, L501.2450, L501.02187, L501.9985 #### [facility] [address] [place], [address] CO2 [Moles/Vol] 24.7 mmol/L Normal 21.0-32.0 [facility] Comment on above: Performed By: #### L 501.9520, L506.0400, L500.4050, L501.2450, L501.97669, L501.9985 #### [facility] [address] [place], [address] Creatinine [Mass/Vol] 0.82 mg/dL Normal 0.70-1.20 [facility] Comment on above: Performed By: #### L 501.9520, L506.0400, L500.4050, L501.2450, L501.78895, L501.9985 #### [facility] [address] [place], [address] ECRCL 76.04 ml/min Normal 50-250 [facility] Comment on above: Performed By: #### L 501.9520, L506.0400, L500.4050, L501.2450, L501.33583, L501.9985 #### [facility] [address] [place], [address] GAP 12 Normal 5-15 [facility] Comment on above: Performed By: #### L 501.9520, L506.0400, L500.4050, L501.2450, L501.41630, L501.9985 #### [facility] [address] [place], [address] GFR/1.73 sq M.predicted among non-blacks MDRD (S/P/Bld) [Vol rate/Area] 96 mL/min/{1.73_m2} Normal >60 [facility] Comment on above: Result Comment: mL/m in/1.73m2 CKD-EPI Creatinine Equation (2020) Performed By: #### L 501.9520, L506.0400, L500.4050, L501.2450, L501.81239, L501.9985 #### [facility] [address] [place], [address] Globulin (S) [Mass/Vol] 2.7 g/dL Normal 2.2-4.2 [facility] Comment on above: Performed By: #### L 501.9520, L506.0400, L500.4050, L501.2450, L501.74547, L501.9985 #### [facility] [address] [place], [address] Glucose [Mass/Vol] 92 mg/dL Normal 70-99 [facility] Comment on above: Performed By: #### L 501.9520, L506.0400, L500.4050, L501.2450, L501.17834, L501.9985 #### [facility] [address] [place], [address] Potassium [Moles/Vol] 4.4 mmol/L Normal 3.3-5.1 [facility] Comment on above: Result Comment: Hemo lysis present, Results??could be affected. ?? Performed By: #### L 501.9520, L506.0400, L500.4050, L501.2450, L501.34473, L501.9985 #### [facility] [address] [place], [address] Sodium [Moles/Vol] 138 mmol/L Normal 133-145 [facility] Comment on above: Performed By: #### L 501.9520, L506.0400, L500.4050, L501.2450, L501.35210, L501.9985 #### [facility] [address] [place], [address] T PROT 6.7 g/dL Normal 5.9-8.4 [facility] Comment on above: Performed By: #### L 501.9520, L506.0400, L500.4050, L501.2450, L501.37453, L501.9985 #### [facility] [address] [place], [address] Urea nitrogen [Mass/Vol] 15 mg/dL Normal 4-19 [facility] Comment on above: Performed By: #### L 501.9520, L506.0400, L500.4050, L501.2450, L501.98868, L501.9985 #### [facility] [address] [place], [address] Emergency Department Summary on 04-03-2025 Emergency Department Summary [facility] Medical Records Department [address] [place] [address] Emergency Department Summary 04/03/25 MR#: [id number] Acct: [id number] Name: CORTNEY ACOSTA Rep #: [id number] : 1955 69 From: Roque Wood DO PCP: Dr. Anthony Chamorro MD Status:REG ER Location: ED HPI History of Present Illness Chief Complaint: Numb/Ting Narrative Narrative: Patient is a 69-year-old male past medical history of previous back surgery about a year ago, cholecystectomy about 5 weeks ago, hypertension who presented to the emergency department with a chief complaint of lower extremity feeling of cold sensation and tingling he states that is from his knees down. He states that he is also having more back pain than normal in his lower back. He states that about 5 weeks ago after multiple doctor visits secondary to pain going to his back and his shoulder they found his gallbladder needed removal which was taken out. He states that of the symptoms that he has today did happen in the past as well but resolved on their own. He states that when he woke up this morning he noticed this. He states he is urinating normally for himself and having normal bowel movements. Patient denies any other trauma or injuries to his back. Patient denies any history of blood clots denies any recent travel history but once again did [facility] History no medical history Allergy/AdvReac Type Severity Reaction Status Date / Time Penicillins Allergy PT UNSURE Verified 04/03/25 12:50 OF REACTION Family History no significant family his Surgical History no surgical history Social History Smoking Status: Never smoker ROS ROS ED ROS Narrative Constitutional: Denies fever, chills, headache Eyes: Denies double vision Cardiovascular: Denies chest pain Respiratory: Denies shortness of breath Abdomen: Denies abdominal pain nausea vomit diarrhea : Denies urinary symptoms Neurological: Complains of numbness and cool sensation to the lower extremities from the knees down bilaterally as noted above Musculoskeletal: Complains of back pain as noted above Skin: Denies any rashes or lesions EXAM Physical Exam Narrative Exam Narrative: General: Patient was lying in bed rest comfortably did not appear to be in acute distress Head: Atraumatic, normocephalic Eyes: PERRL bilateral, EOMI bilateral, no conjunctival injection noted Neck: Soft, supple, trachea midline Cardiovascular: Regular rate and rhythm no murmurs gallops rubs noted Respiratory: Clear to auscultation bilaterally Abdomen: Soft, nondistended, no tenderness to palpation Extremities: DP pulses +2/4 in the bilateral lower extremities as well as the PT pulses bilaterally, +5/5 strength noted in the bilateral upper and lower extremities Neurological: Patient follow commands and that he was at [facility] and the year is 2024. Sensation grossly intact no saddle anesthesia noted Skin: Warm, dry, tact no rashes or lesions noted Const Vital Signs: 04/03/25 12:50 04/03/25 14:48 Temperature 97.7 F L Temperature Source Temporal Pulse Rate 85 Respiratory Rate 18 Blood Pressure 152/101 H 151/92 H Blood Pressure Mean 118 111 Pulse Ox 99 Oxygen Delivery Method Room Air MDM MDM MDM Narrative Medical decision making narrative: Patient is a 69-year-old male who presented to the emergency department the chief complaint of lower extremity below the knee feeling of cold sensation as well as numbness. On the differential diagnose includes but not limited to arterial occlusion although low suspicion for this based on clinical exam, DVT with recent surgery, compression fracture, hardware loosening. Once workup is obtained reviewed he will be reevaluated. Patient CBC was reviewed which showed a white blood count of 7.9, hemoglobin was 13.8, plate count of 270. Patient sodium is 138, potassium normal 4.4, creatinine normal at 0.82. Patient AST and ALT are 20 and 20 respectively, lipase was notably normal at 28, TSH normal at 1.55, free T4 and T3 normal at 1.30 and 2.7 respectively. Patient CTA abdomen pelvis reviewed which showed normal CT of the abdominal aorta and bilateral lower extremity runoff. He has coronary artery calcification noted with a calcified right hilar lymph nodes. 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 He states that he does not develop any chest pain with this he was advised to obtain a stress test in the outpatient setting as well. Patient's bilateral duplex negative for DVT or superficial venous embolus. A1c pending Discussed results with the patient he would like to go home at this point time. He is advised to follo (more content not included)... Normal [facility] Eosinophil percentageOrdered By: Roque Wood on 04-03-2025 Eosinophils/100 WBC (Bld) 0.6 % 0-5 [facility] Erythrocyte distribution wid th ratioOrdered By: Roque Wood on 04-03-2025 Erythrocyte distribution width (RBC) [Ratio] 14.3 % 11.6-14.6 [facility] Erythrocyte distribution wid th standard deviationOrdered By: Roque Wood on 04-03-2025 Erythrocyte distribution width (RBC) [Ratio] 48.8 fl High 35.1-43.9 [facility] Free T3on 04-03-2025 Free T3 [Mass/Vol] 2.7 pg/mL Normal 2.18-3.98 [facility] Comment on above: Performed By: #### L 501.9520, L506.0400, L500.4050, L501.2450, L501.19297, L501.9985 #### [facility] [address] [place] [address], [id number] Free [id number] By: Roque mason on 04-03-2025 Free T3 [Mass/Vol] 2.7 pg/mL 2.18-3.98 [facility] Glomerular filtration rate ( GFR) estimation/1.73 sq m using serum, plasma, or whole bOrdered By: Roque Wood on 04-03-2025 GFR/1.73 sq M.predicted among non-blacks MDRD (S/P/Bld) [Vol rate/Area] 96 mL/min/{1.73_m2} >60 [facility] Comment on above: mL/min/1.73m2 CKD-EP I Creatinine Equation (2020) Hematocrit Auto (Bld) [Volum e fraction]Ordered By: Roque Wood on 04-03-2025 Hematocrit (Bld) [Volume fraction] 40.7 % 40-54 [facility] Hemoglobin A1con 04-03-2025 HbA1c (Bld) [Mass fraction] 5.8 % High <=5.6 [facility] Comment on above: Result Comment: Norm al < 5.7 % Prediabetic 5.7 - 6.4 % Diabetic >or= 6.5 % Please note range changes. Performed By: #### L 501.9520, L506.0400, L500.4050, L501.2450, L501.12152, L501.9985 ####[facility] [id number] [facility] [place], [place], [id number] Hemoglobin measurementOrdere d By: Roque Wood on 04-03-2025 Hemoglobin (Bld) [Mass/Vol] 13.8 g/dL 13.0-16.5 [facility] Immature granulocytes/100 WB C Auto (Bld)Ordered By: Roque Wood on 04-03-2025 Immature granulocytes/100 WBC (Bld) 0.400 % 0.0-0.9 [facility] Comment on above: IG% - Immature Granu locytes (promyelocytes, myelocytes and metamyelocytes) > 1% indicates that a LEFT SHIFT is Present. Laboratory - Chemistry and C hemistry - challengeOrdered By: Roque Wood on 04-03-2025 AST [Catalytic activity/Vol] 20 U/L <38 [facility] Lipaseon 04-03-2025 Lipase [Catalytic activity/Vol] 28 U/L Normal 13-75 [facility] Comment on above: Result Comment: Plea se note: LIPASE revised reference range effective 22. New Lipase methodology. Expected to produce lower values than the previous assay method. NEW Reference Range: 13 - 75 U/L Performed By: #### L 501.9520, L506.0400, L500.4050, L501.2450, L501.71989, L501.9985 #### [facility] [address] [place], [address] Lipase measurementOrdered By : Roque Wood on 04-03-2025 Lipase [Catalytic activity/Vol] 28 U/L 13-75 [facility] Comment on above: Please note:LIPASE r evised reference range effective 22. New Lipase methodology. Expected to produce lower values than the previous assay method. NEW Reference Range: 13 - 75 U/L MCV (mean corpuscular volume ) determinationOrdered By: Roque Wood on 04-03-2025 MCV (RBC) [Entitic vol] 92.1 fL 80-94 [facility] Mean corpuscular hemoglobin (MCH) determinationOrdered By: Roque Wood on 04-03-2025 MCH (RBC) [Entitic mass] 31.2 pg 27.0-32.0 [facility] Mean corpuscular hemoglobin concentration (MCHC) determinationOrdered By: Roque Wood on 04-03-2025 MCHC (RBC) [Mass/Vol] 33.9 g/dL 32-36 [facility] Mean platelet volume determi nationOrdered By: Roque Wood on 04-03-2025 Platelet mean volume (Bld) [Entitic vol] 8.8 fL 6.2-12.0 [facility] Monocyte percentageOrdered B y: Roque Wood on 04-03-2025 Monocytes/100 WBC (Bld) 6.9 % 0-10 [facility] Neutrophil percentageOrdered By: Roque Wood on 04-03-2025 Neutrophils/100 WBC (Bld) 69.4 % 47-70 [facility] Nucleated red blood cell per centageOrdered By: Roque Wood on 04-03-2025 Nucleated RBC/100 WBC (Bld) [Ratio] 0 % 0-5 [facility] Platelet countOrdered By: Merlin Wood on 04-03-2025 Platelets (Bld) [#/Vol] 270 10*3/uL 150-450 [facility] Potassium measurement (mass/ volume)Ordered By: Roque Wood on 04-03-2025 Potassium (Unsp spec) [Mass/Vol] 4.4 mmol/L 3.3-5.1 [facility] Comment on above: Hemolysis present, R esults could be affected. RBC Auto (Bld) [#/Vol]Ordere d By: Roque Wood on 04-03-2025 RBC (Bld) [#/Vol] 4.42 10*6/uL Low 4.6-6.2 [facility] Serum creatinine measurement (mass/volume)Ordered By: Roque Wood on 04-03-2025 Creatinine [Mass/Vol] 0.82 mg/dL 0.70-1.20 [facility] Serum globulin measurementOr dered By: Roque Wood on 04-03-2025 Globulin (S) [Mass/Vol] 2.7 g/dL 2.2-4.2 [facility] Serum glucose measurement (m ass/volume)Ordered By: Roque Wood on 04-03-2025 Glucose [Mass/Vol] 92 mg/dL 70-99 [facility] Serum or plasma alanine lowe otransferase (ALT) measurementOrdered By: Roque Wood on 04-03-2025 ALT [Catalytic activity/Vol] 20 U/L <47 [facility] Serum or plasma albumin bernardo urement (mass/volume)Ordered By: Roque Wood on 04-03-2025 Albumin [Mass/Vol] 4.0 g/dL 3.4-4.8 [facility] Serum or plasma albumin/glob ulin mass ratioOrdered By: Roque Wood on 04-03-2025 Albumin/Globulin [Mass ratio] 1.5 {ratio} 0.9-2.4 [facility] Serum or plasma alkaline rosey sphatase measurementOrdered By: Roque Wood on 04-03-2025 ALP [Catalytic activity/Vol] 65 U/L 40-129 [facility] Serum or plasma calcium bernardo urement (mass/volume)Ordered By: Roque Wood on 04-03-2025 Calcium [Mass/Vol] 9.1 mg/dL 7.6-11.0 [facility] Serum or plasma urea nitroge n measurement (mass/volume)Ordered By: Roque Wood on 04-03-2025 Urea nitrogen [Mass/Vol] 15 mg/dL 4-19 [facility] Sodium levelOrdered By: Ashwin Wood on 04-03-2025 Sodium [Moles/Vol] 138 mmol/L 133-145 [facility] T4 Free Directon 04-03-2025 T4 FREE DIRECT 1.30 ng/dL Normal 0.76-1.46 [facility] Comment on above: Performed By: #### L 501.9520, L506.0400, L500.4050, L501.2450, L501.36821, L501.9929 #### [facility] [address] [place], [place], [id number] T4 freeOrdered By: Roque mason on 04-03-2025 Free T4 [Mass/Vol] 1.30 ng/dL 0.76-1.46 [facility] TSH DL <= 0.005 mIU/L QnOrde red By: Roque Wood on 04-03-2025 TSH Qn 1.550 uIU/mL 0.300-4.200 [facility] Thyroid Stim Hormone (TSH)on 04-03-2025 TSH 1.550 uIU/mL Normal 0.300-4.200 [facility] Comment on above: Performed By: #### L 501.9520, L506.0400, L500.4050, L501.2450, L501.79121, L501.9985 #### [facility] [address] [place], [place], [address] Total proteinOrdered By: Wilfredo Wood on 04-03-2025 Protein [Mass/Vol] 6.7 g/dL 5.9-8.4 [facility] Venous Duplex US - Francisco Javier Extre mon 04-03-2025 Venous Duplex US - Francisco Javier Extrem [facility] Cardi[facility] [address] [facility] [place] [address] Venous Duplex US - Francisco Javier Extrem 04/03/25 1402 MR#: [id number] Acct: [id number] Name: CORTNEY ACOSTA Rep #: [id number] : 1955 69 From: Santiago Cabrera MD Attending Dr: Status: DEP ER Ordering Dr: Roque Wood DO Date: 04/03/25 Location: ED Sex: M C Admitted: Reason For Study Reason For Study: BLE Pain RIGHT LEFT GSV is normal. GSV is normal. CFV is compressible, spontaneous, phasic, competent CFV is compressible, spontaneous, phasic, competent, and demonstrates normal augmentation. and demonstrates normal augmentation. FV is compressible, spontaneous, phasic, competent FV is compressible, spontaneous, phasic, competent and demonstrates normal augmentation. and demonstrates normal augmentation. POP V is compressible, spontaneous, phasic, competent POP V is compressible, spontaneous, phasic, competent and demonstrates normal augmentation. and demonstrates normal augmentation. T/P Trunk is compressible. T/P Trunk is compressible. PTV is compressible. PTV is compressible. RT PerV is compressible. LT PerV is compressible. Procedure This is a venous duplex using B-mode, color flow and spectral Doppler. Exam performed in department. The exam was diagnostic. A preliminary report was called and/or faxed to ED RN. VL/Venous Duplex US - Francisco Javier Extrem Interpretation Summary Deep veins of the lower extremities are bilaterally patent and compressible segmentally. There is no evidence of deep vein thrombosis on either side. Valvular competence appears intact within the proximal deep venous systems bilaterally. The great saphenous veins appear bilaterally patent and compressible segmentally. Ordering Physician: Roque Wood Referring Physician: Anthony Chamorro Performed By: Shin Laws, T 04/03/252209 Date Santiago Cabrera MD CC: Dr. Anthony Chamorro MD; Dr. Roque Wood DO Date Dictated: 04/03/25 1402 Date Transcribed: 04/03/252209 Manager Of Health: Signed Normal [facility] White blood cell (WBC) count Ordered By: Roque Wood on 04-03-2025 WBC (Bld) [#/Vol] 7.9 10*3/uL 4.4-11.0 [facility] CNOVon 03-31-2025 CNOV Office Visit ([facility] ) CASTILLO ACOSTA ([id number]) 1955 M Date Time Provider Department 03/31/25 3:00 PM MANAN PACKER [facility] During your visit today, we recorded the following information about you: Temperature Pulse Blood pressure Weight 98.3 degrees 80/minute 134/80 65.9 kg Manan Packer MD 03/31/2025 3:40 PM Signed HPI: This is Mr. Castillo nunez 69 year old male from who presents to the [facility] neurology department with a chief complaint of muscle aches and weakness Referring provider: SELF Castillo Acosta is a 69-year-old male presenting with severe abdominal pain following laparoscopic cholecystectomy five weeks ago. He is accompanied by his , who provides additional history. Castillo reports severe pain localized to the area around his umbilicus, described as a burning sensation that is exacerbated by light touch, such as his shirt rubbing against the skin. The pain intensity varies, sometimes reaching a level that confines him to bed for days. He notes that the pain is not constant, currently rating it at a 3/10, but it can become severe with certain movements or pressure. He also experiences shoulder pain, which he attributes to overcompensating for the abdominal discomfort. Approximately one week post-surgery, he developed small blisters in the painful area, which were initially thought to be ingrown hairs. These blisters have since resolved, but the pain persists. He has tried lidocaine patches and various topical treatments without significant relief. Castillo has consulted his surgeon and primary care physician (PCP) multiple times. Initial treatment with steroids provided no relief. His PCP prescribed gabapentin, starting at 100 mg and increasing to 300 mg three times daily, which also did not alleviate the pain and caused side effects of lightheadedness and feeling "weird." He is currently taking amitriptyline 10 mg at night, along with medications for blood pressure and anxiety, and meloxicam. A CT scan was ordered by his PCP but has not yet been approved. He has no issues with bowel or bladder function and reports that all blood work and vital signs are normal. He has a history of hip replacement and back surgery. Social History: SOCIAL HISTORY[1] ROS: A complete review of systems was performed. All systems negative other than those mentioned in HPI. Physical Exam: Vitals: BP 134/80 Pulse 80 Temp 36.8 ?C (98.3 ?F) (Temporal) Wt 65.9 kg (145 lb 4.5 oz) SpO2 99% General appearance: no acute distress. Neurological Exam: MSE: Alert and oriented to person, place, and time. Speech is fluent without dysarthria or aphasia. Recall is intact to recent and remote events. Attention and concentration are intact. Fund of knowledge is intact. Sensation: Intact to light touch, pinprick in affected region approximately right T8-T10 distribution Gait: Normal. Labs: Component Ref Range AND Units 2 mo ago C-REACTIVE PROTEIN <8.0 mg/L <3.0 Component Ref Range AND Units 2 mo ago SED RATE BY MODIFIED WESTERGREN < OR = 20 mm/h 2 LYME ANTIBODY SCREEN WITH REFLEX TO IMMUNOBLOT Specimen: Blood - Venous blood specimen (specimen) Component Ref Range AND Units 2 mo ago Comments Lyme Ab Screen <=0.90 Index <=0.90 Component Ref Range AND Units 2 mo ago Auto WBC 3.6 - 10.7 10*3/uL 5.9 RBC 4.40 - 5.90 10*6/uL 4.64 Hemoglobin 13.0 - 18.0 g/dL 14 Hematocrit 40.0 - 52.0 % 41.3 MCV 77.0 - 99.0 fL 89 MCH 26.0 - 34.0 pg 30.2 MCHC 30.5 - 36.0 % 33.9 RDW 11.5 - 15.0 % 12.4 Platelets 140 - 440 10*3/uL 286 omponent Ref Range AND Units 2 mo ago Comments SODIUM 136 - 145 mmol/L 139 POTASSIUM 3.5 - 5.1 mmol/L 4.8 Plasma potassium values may be up to 0.5 mmol/L lower than serum values. CHLORIDE 98 - 107 mmol/L 104 CARBON DIOXIDE 23 - 31 mmol/L 26 ANION GAP 3 - 13 mmol/L 9 UREA NITROGEN 9 - 23 mg/dL 18 CREATININE 0.72 - 1.25 mg/dL 0.95 GLUCOSE 82 - 115 mg/dL 103 CALCIUM 8.8 - 10.0 mg/dL 9.3 AST (SGOT) <34 U/L 17 ALT <40 U/L 14 ALKALINE PHOSPHATASE 40 - 150 U/L 59 ALBUMIN 3.4 - 4.8 g/dL 3.8 BILIRUBIN, TOTAL <1.2 mg/dL 0.5 TOTAL PROTEIN 6.4 - 8.3 g/dL 6.7 eGFR >60.0 mL/min/1.73m*2 87.7 Imaging: MRI Head/Brain - Last 2 Impressions No resulted procedures found. MRI lumbar spine 04/15 [facility] (scanned docs) 01/[address] THORACIC SPINE WO IVCON Order: [id number] Impression No acute findings. Other studies: Assessment/Plan : 1. Disturbance of skin sensation (R20.9) - Persistent localized abdominal pain and hypersensitivity following laparoscopic cholecystectomy 5 weeks ago; pain not alleviated by prior courses of steroids or gabapentin (titrated up to 300 mg TID), which caused intolerable side effects. - on exam, sensation is intact to light touch and pinpr (more content not included)... Normal [facility] 37on 03-24-2025 37 Decrease gabapentin to twice daily, then continue to gradually decrease the dose every 3 days. Take the amitriptyline at bedtime consistently. Continue prednisone Normal [facility] Office Visiton 03-24-2025 Follow-up visit [id number] Cortney Acosta 1955 M Date Provider Department Center 03/24/2025 [id number]-ZFOPTJEFLHILAN TARIQ [facility] Family History Problem Relation Age of Onset Emphysema Mother Cancer Father Family Status - Relation Status Age at Mother Father Level of Service:79361 PA OFFICE/OUTPATIENT ESTABLISHED LOW [facility] 20 MIN Reason for Visit and Comments: Follow-up [352490] Normal [facility] Progress Noteon 03-24-2025 Progress Note Continues to have ri ght upper quadrant pain. Status post lap devora in January. Vital signs are stable. No nausea or vomiting. Will obtain CT of abdomen to further evaluate since not improving. Normal [facility] Progress Note Unsure etiology of h is abdominal pain on the right side. Possibly referred pain. Vital signs are stable. Gabapentin was not very helpful so he is going to self taper discontinue off of that and continue the amitriptyline 10 mg at night. Normal [facility] Progress Note 03/24/2025 Cortney Acosta (: 1955) is a 69 y.o. male , Established patient, here for evaluation of the following chief complaint(s): Follow-up ASSESSMENT/PLAN: 1. Nerve pain Assessment & Plan: Unsure etiology of his abdominal pain on the right side. Possibly referred pain. Vital signs are stable. Gabapentin was not very helpful so he is going to self taper discontinue off of that and continue the amitriptyline 10 mg at night. 2. RUQ pain Assessment & Plan: Continues to have right upper quadrant pain. Status post lap devora in January. Vital signs are stable. No nausea or vomiting. Will obtain CT of abdomen to further evaluate since not improving. Orders: - CT abdomen pelvis wo IV contrast 3. Postoperative abdominal pain - CT abdomen pelvis wo IV contrast Follow up in about 2 weeks (around 04/07/2025). SUBJECTIVE/OBJECTIVE: HPI - Cortney Acosta (: 1955) is a 69 y.o. male , Established patient, here for the evaluation of the following chief complaint(s): Follow-up Presents for follow-up abdominal pain. Had a lap devora end of January. Presented to office a couple weeks ago for pain and rash on abdomen. He had seen the surgeon and was given a short course of steroids. The rash was not very significant but the pain was out of proportion to his physical presentation. He described the pain as burning. We started gabapentin and amitriptyline to help with the pain, however patient reports the gabapentin has not been helpful even though it was increased last week. Appetite been good, no fever. Pain is all on the right side. Upper right shoulder, neck down the thoracic area and has pain in the right upper quad, no n/v. Pain with turning increases the pain in the right upper quadrant. Gabapentin- 300 mg every 8 hours is not really helping. Reports feeling in "a fog" Was given another round of steroids and has a few days left of that. Does not think that helped either. The burning pain he was having on his abdomen he reports is more intermittent instead of constant now, but the right upper quadrant pain is more constant with intermittent worsening. Of note when I saw him last he was not having any actual abdominal pain and it was just pain on the skin of the abdomen. He is concerned that something has gone wrong with his surgery. He is still not back to work and will need an additional couple weeks off. Current Medications[1] Review of Systems Constitutional: Positive for fatigue. Negative for appetite change, chills and fever. HENT: Negative. Respiratory: Negative. Cardiovascular: Negative. Gastrointestinal: Positive for abdominal pain. Negative for blood in stool, constipation, diarrhea, nausea and vomiting. Genitourinary: Negative for difficulty urinating. Psychiatric/Behavioral: Positive for dysphoric mood. Negative for sleep disturbance. The patient is nervous/anxious. Reports sleeping better with the amitriptyline Vitals: 03/24/25 1051 BP: 136/85 Pulse: 80 Resp: 20 Temp: 37.4 ?C (99.3 ?F) TempSrc: Infrared SpO2: 97% Weight: 141 lb 9.6 oz (64.2 kg) Physical Exam Constitutional: General: He is not in acute distress. Appearance: Normal appearance. He is not ill-appearing. HENT: Head: Normocephalic and atraumatic. Cardiovascular: Rate and Rhythm: Normal rate and regular rhythm. Pulses: Normal pulses. Heart sounds: Normal heart sounds. Pulmonary: Effort: Pulmonary effort is normal. Breath sounds: Normal breath sounds. Abdominal: Palpations: Abdomen is soft. Tenderness: There is abdominal tenderness in the right upper quadrant. Musculoskeletal: Arms: Skin: General: Skin is warm and dry. Findings: No rash. Neurological: Mental Status: He is alert and oriented to person, place, and time. Psychiatric: Attention and Perception: Attention and perception normal. Mood and Affect: Affect normal. Mood is anxious. Speech: Speech normal. Behavior: Behavior normal. Behavior is cooperative. Cognition and Memory: Cognition and memory normal. Judgment: Judgment normal. An electronic signature was used to authenticate this note. Ilan Tariq, RONAN - CHUN 03/24/2025 7:01 PM [1] Current Outpatient Medications Medication Sig Dispense Refill acetaminophen (Tylenol) 500 MG tablet Take 1,000 mg by mouth every 8 hours as needed for mild pain (1-3). amitriptyline (Elavil) 10 MG tablet Take 1 tablet (10 mg) by mouth Nightly. 30 tablet 0 busPIRone (Buspar) 7.5 MG tablet Take 1 tablet (7.5 mg) by mouth 2 times daily. 180 tablet 1 gabapentin (Neurontin) 300 MG capsule Take 1 capsule (300 mg) by mouth 3 times daily. 90 capsule 0 Glycerin, Adult, 2 g suppository Insert 1 suppository (2 g) into the rectum Daily as needed (constipation). 12 suppository 0 lidocaine (Lidoderm) 5 % patch Apply 1 patch topically daily. Apply to painful area 12 hours per day, remove for 12 hours. 30 patch 2 losartan (Cozaar) 100 MG tab (more content not included)... [facility] Progress Note Patient was identifi ed by name and Date of . [facility] 36on 03-19-2025 36 Rebekah notified [facility] 36 I am going to increa se his gabapentin to 300 mg 3 times a day, from reviewing his chart this sounds like he may have developed shingles and now has postherpetic neuralgia, also I am going to send in a prescription for a course of prednisone that was longer than his previous. He will take 3 tablets once a day for 5 days then go to 2 tablets for 3 days and 1 tablet for 2 days. This will be written out on the bottle [facility] 36 Pt saw Nicolasa on 03/16 and started on gabapentin, amitriptyline, and tizanadine and takes meloxicam. in today stating yesterday pt states his pain was much improved and he felt great. This morning was able to actually touch his skin on abdomin and states he had almost no pain then approx 1-2 hrs last pt stated that pain in shoulder and skin on stomach became very painful and stated that legs feel very weak and he had to return to bed and states he is a lepe color and she is very worried - pt states that he can not take this anymore and he needs help is wondering if pt needs any type of testing- ct, mri etc [facility] 36 Error [facility] Office Visiton 03-16-2025 Follow-up visit [id number] Cortney Acosta 1955 M Date Provider Department Center 03/16/2025 [id number]-YGOHSEDNBCILAN TARIQ [facility] Family History Problem Relation Age of Onset Emphysema Mother Cancer Father Family Status - Relation Status Age at Mother Father Level of Service:69391 PA OFFICE/OUTPATIENT ESTABLISHED MOD MDM 30 MIN Reason for Visit and Comments: Abdominal Pain [401720] - Surface-shingles? Normal [facility] Progress Noteon 03-16-2025 Progress Note Possible shingles, however very minimal rash with that. Pain is described as burning. No underlying tenderness, suspect superficial neuropathy of the skin. Lidocaine patch as directed, start gabapentin 100 mg 3 times daily x 14 days. OARRS reviewed and consistent with treatment plan. Start amitriptyline 10 mg nightly to help with nerve pain and will also help with his degenerative arthritis pain. Close follow-up in 1-1/2 weeks Normal [facility] Progress Note Tizanidine for muscl e spasms of the neck. Cautioned concurrent use with gabapentin Normal [facility] Progress Note Usually well-control led on his current medications. May be increased today due to pain. Continue losartan 50 mg nightly, follow-up as directed for blood pressure Normal [facility] Progress Note Continue BuSpar 7.5 mg twice daily, start amitriptyline 10 mg at bedtime Normal [facility] Progress Note 03/16/2025 Cortney Acosta (: 1955) is a 69 y.o. male , Established patient, here for evaluation of the following chief complaint(s): Abdominal Pain (Surface-shingles?) ASSESSMENT/PLAN: 1. Nerve pain Assessment & Plan: Possible shingles, however very minimal rash with that. Pain is described as burning. No underlying tenderness, suspect superficial neuropathy of the skin. Lidocaine patch as directed, start gabapentin 100 mg 3 times daily x 14 days. OARRS reviewed and consistent with treatment plan. Start amitriptyline 10 mg nightly to help with nerve pain and will also help with his degenerative arthritis pain. Close follow-up in 1-1/2 weeks Orders: - gabapentin (Neurontin) 100 MG capsule; Take 1 capsule (100 mg) by mouth 3 times daily for 14 days., Starting Sun03/16/2025, Until Sun03/30/2025, Normal - amitriptyline (Elavil) 10 MG tablet; Take 1 tablet (10 mg) by mouth Nightly., Starting Sun03/16/2025, Until Sun04/15/2025, Normal - lidocaine (Lidoderm) 5 % patch; Apply 1 patch topically daily. Apply to painful area 12 hours per day, remove for 12 hours., Starting Sun03/16/2025, Until 06/14/2025, Normal 2. Anxiety Assessment & Plan: Continue BuSpar 7.5 mg twice daily, start amitriptyline 10 mg at bedtime Orders: - amitriptyline (Elavil) 10 MG tablet; Take 1 tablet (10 mg) by mouth Nightly., Starting Sun03/16/2025, Until 04/15/2025, Normal 3. Muscle spasm Assessment & Plan: Tizanidine for muscle spasms of the neck. Cautioned concurrent use with gabapentin Orders: - tiZANidine (Zanaflex) 2 MG tablet; Take 1 tablet (2 mg) by mouth every 8 hours as needed for muscle spasms for up to 10 days., Starting Sun03/16/2025, Until Di 03/26/2025 at 2359, Normal 4. Primary hypertension Assessment & Plan: Usually well-controlled on his current medications. May be increased today due to pain. Continue losartan 50 mg nightly, follow-up as directed for blood pressure Follow up in about 2 weeks (around 03/30/2025). SUBJECTIVE/OBJECTIVE: [facility] - Cortney Acosta (: 1955) is a 69 y.o. male , Established patient, here for the evaluation of the following chief complaint(s): Abdominal Pain (Surface-shingles?) Presents for rash that showed up on his abdomen after surgery February 19, 2025. Had a lap devora. Rash showed up after surgery at some point within that first. Week. Reports had red dots in a patch. States it hurts to touch it. Reports that he was given steroids from the surgeon last week. No fever. Has gotten chilled. The skin gets warm to the area. Nauseated. Thinks its from the pain. Eating ok. Bowels moving. Reports the pain is a burning pain, on the surface of the skin and is not deep. Abdomen is not tender to touch. Has tried topical lidocaine without much relief, Tylenol Reports his mood has been down and he is anxious to. He would like to take something for depression. Denies any suicidal or homicidal ideation. He has been off work due to his recent surgery and will need a couple more days off. He reports the right side of his neck has been a little bit stiff has been getting a headache from it. Current Medications[1] Review of Systems Constitutional: Negative. Respiratory: Negative. Cardiovascular: Negative. Gastrointestinal: Positive for nausea (Occasional). Negative for abdominal pain, constipation, diarrhea and vomiting. Genitourinary: Negative for difficulty urinating. Musculoskeletal: Positive for back pain and neck pain. Skin: Positive for rash. Psychiatric/Behavioral: Positive for dysphoric mood and sleep disturbance. Negative for self-injury and suicidal ideas. The patient is nervous/anxious. Vitals: 03/16/25 0906 03/16/25 0959 BP: (!) 174/77 (!) 146/76 Pulse: 73 Resp: 18 Temp: 37.2 ?C (98.9 ?F) TempSrc: Infrared SpO2: 97% Weight: 137 lb (62.1 kg) Physical Exam Vitals reviewed. Constitutional: General: He is not in acute distress. Appearance: Normal appearance. He is not ill-appearing. HENT: Head: Normocephalic and atraumatic. Mouth/Throat: Mouth: Mucous membranes are moist. Pharynx: Oropharynx is clear. No posterior oropharyngeal erythema. Eyes: Conjunctiva/sclera: Conjunctivae normal. Neck: Cardiovascular: Rate and Rhythm: Normal rate and regular rhythm. Pulses: Normal pulses. Heart sounds: Normal heart sounds. Pulmonary: Effort: Pulmonary effort is normal. Breath sounds: Normal breath sounds. Abdominal: General: Bowel sounds are normal. Tenderness: There is no abdominal tenderness. Musculoskeletal: Right lower leg: No edema. Left lower leg: No edema. Lymphadenopathy: Cervical: No cervical adenopathy. Skin: Comments: Lap sites well-healed Neurological: Mental Status: He is alert and oriented to person, place, and time. Psychiatric: Mood and Affect: Mood normal. Behavior: Behavior normal. Thought Content: Thought content normal. An electronic signature was used to authenticate (more content not included)... [facility] Progress Note Patient was identifi ed by name and Date of . [facility] Progress Noteon 03-13-2025 Progress Note The patient, Cortney Aocsta, identity was verified by name and . Supervising provider for clinic visit: Quoc Us APRN-KEY BED INSTALLER Chief Complaint Patient presents with Blood Pressure Check Reason for visit: Elevated BP Reading at last visit Cortney Acosta has validated current medications Patient states compliant with medications as written: Yes BP medication taken prior to this visit? Yes Are you having any symptoms? No Current Blood Pressure: 136/77 Current Heart Rate: 57 Did Blood Pressure need rechecked: no Second Blood Pressure Reading: Second Heart Rate: Assessment/Plan: Hypertension - bp elevated at specialist office on so we had him come in for bp check normal Future Appointments Date Time Provider Department Center 03/24/2025 2:20 PM RONAN Valerio CNP [facility] 07/13/2025 7:40 AM Ilan Tariq APRN - [employer]ED INST[employer]ER [facility] Cc'd provider blood pressure readings? Yes [facility] Progress Note Pt notified Normal [facility] Progress Note Heart rate and blood pressure are good at 136/77 and 57 bpm. Normal [facility] Office Visiton 03-10-2025 Follow-up visit [id number] Cortney Acosta Enrique 1955 M Date Provider Department Center 03/10/2025 [id number]-TNKSSROSANNE [facility] None Family History Problem Relation Age of Onset Emphysema Mother Cancer Father Family Status - Relation Status Age at Mother Father Level of Service:22349 PA POSTOP FOLLOW UP VISIT RELATED TO ORIGINAL PX Reason for Visit and Comments: Post-op [483] - PO 02/19 Gallbladder. Blisters on abdomen Normal [facility] Progress Noteon 03-10-2025 Progress Note Pt sched for bp chec k on Sunday03/13/25 [facility] Progress Note We want to inform yo u that your patient's blood pressure was noted to be elevated in our office today. We thank you for trusting us with your patient's health. Last BP: BP Readings from Last 2 Encounters: 03/10/25 (!) 165/86 03/03/25 (!) 148/87 [facility] Progress Note Patient ID: Cortney Acosta [id number] 69 y.o. 1955 Post Operative: Surgery Date 02/19/25. Surgical Procedure Laparoscopic cholecystectomy performed by Dr. Cool. Patient overall doing okay. Main complaint is rash on abdomen. He states from gallbladder standpoint doing well no nausea or emesis. No bowel concerns. Main complaint is this rash/raised bumps on abdomen and associated burning pain. He reports started after his surgery. He reports since noting he states he feels the pain has worsened. He states had to leave work early due to the pain. He states pain is below incision sites. Its worse when anything rubs up against his incision sites. Incision(s) healing well. Inferior to incision sites noted small red raised lesions. Patient has returned back to normal activities and regular diet. Pathology GALLBLADDER, CHOLECYSTECTOMY: - MINIMAL CHRONIC CHOLECYSTITIS. Patient requesting time off work for additional week and will provide. In regards to rash/ and pain will trial burst dose of steroids for 5 days to help. Instructed if no improvement recommend following up with PCP for further evaluation. Patient agreeable. Overall patient is doing well and I can see them on a p.r.n basis. No orders of the defined types were placed in this encounter. Rosanne Davis, HOME MANAGER - KEY BED INSTALLER Normal [facility] C-REACTIVE PROTEINon 025 CRP [Mass/Vol] 3.1 mg/L Normal <5.0 [facility] Comment on above: Performed By: #### L AB149, LAB17, LAB99 ####Poll Clerk: LIU MATHEWS ([phone])[facility])[address] [place] [address] CBC W Auto Differential pane l (Bld)on 03-03-2025 Basophils (Bld) [#/Vol] 0.1 10*3/uL 0.0 - 0.2 10*3/uL [facility] Basophils/100 WBC (Bld) 0.6 % 0.0 - 2.0 % [facility] Eosinophils (Bld) [#/Vol] 0.2 10*3/uL 0.0 - 0.5 10*3/uL [facility] Eosinophils/100 WBC (Bld) 2.1 % 0.0 - 6.0 % [facility] Erythrocyte distribution width (RBC) [Ratio] 13.2 % 11.5 - 15.0 % [facility] Hematocrit (Bld) [Volume fraction] 38.3 % Low 40.0 - 52.0 % [facility] Hemoglobin (Bld) [Mass/Vol] 13.3 g/dL 13.0 - 18.0 g/dL [facility] Immature granulocytes (Bld) [#/Vol] 0 10*3/uL NINF - 0.1 10*3/uL [facility] Immature granulocytes/100 WBC (Bld) 0.3 % 0.0 - 2.0 % [facility] Interpretation and review of laboratory results Abnormal [facility] Lymphocytes (Bld) [#/Vol] 2 10*3/uL 1.0 - 4.3 10*3/uL [facility] Lymphocytes/100 WBC (Bld) 22.9 % 15.0 - 45.0 % [facility] MCH (RBC) [Entitic mass] 30.9 pg 26.0 - 34.0 pg [facility] MCHC (RBC) [Mass/Vol] 34.7 % 30.5 - 36.0 % [facility] MCV (RBC) [Entitic vol] 89.1 fL 77.0 - 99.0 fL [facility] Monocytes (Bld) [#/Vol] 0.6 10*3/uL 0.0 - 0.9 10*3/uL [facility] Monocytes/100 WBC (Bld) 7.1 % 5.0 - 13.0 % [facility] Neutrophils (Bld) [#/Vol] 5.8 10*3/uL 1.8 - 7.5 10*3/uL [facility] Neutrophils/100 WBC (Bld) 67 % 38.0 - 82.0 % [facility] Nucleated RBC/100 WBC (Bld) [Ratio] 0 % [facility] Platelet mean volume (Bld) [Entitic vol] 9.1 fL 9.0 - 12.7 fL [facility] Comment on above: MPV is a calculated measurement using platelet volume ratio Platelets (Bld) [#/Vol] 385 10*3/uL 140 - 440 10*3/uL [facility] RBC (Bld) [#/Vol] 4.3 10*6/uL Low 4.40 - 5.9 0 10*6/uL [facility] WBC (Bld) [#/Vol] 8.6 10*3/uL 3.6 - 10.7 10*3/uL [facility] CBC WITH AUTO DIFFERENTIALon 03-03-2025 Basophils (Bld) [#/Vol] 0.1 10*3/uL Normal 0.0-0.2 [facility] Comment on above: Performed By: #### L [id number] ####Poll Clerk: LIU MATHEWS ([phone])[facility] ([facility])[address] [place] [address] [place] Basophils/100 WBC (Bld) 0.6 % Normal 0.0-2.0 [facility] Comment on above: Performed By: #### L [id number] ####Poll Clerk: LIU MATHEWS ([phone])[facility] ([facility])[address] [place] [address] Eosinophils (Bld) [#/Vol] 0.2 10*3/uL Normal 0.0-0.5 [facility] Comment on above: Performed By: #### L [id number] ####Poll Clerk: LIU MATHEWS ([phone])[facility] ([facility])[address] [place] [address] Eosinophils/100 WBC (Bld) 2.1 % Normal 0.0-6.0 [facility] Comment on above: Performed By: #### L [id number] ####Poll Clerk: LIU MATHEWS ([phone])[facility] ([facility])[address] [place] [address] Erythrocyte distribution width (RBC) [Ratio] 13.2 % Normal 11.5-15.0 [facility] Comment on above: Performed By: #### L [id number] ####Poll Clerk: LIU MATHEWS ([phone])[facility] ([facility])[address] [place] [address] Hematocrit (Bld) [Volume fraction] 38.3 % Low 40.0-52.0 [facility] Comment on above: Performed By: #### L [id number] ####Poll Clerk: LIU MATHEWS ([phone])[facility] ([facility])[address] [place] [address] Hemoglobin (Bld) [Mass/Vol] 13.3 g/dL Normal 13.0-18.0 [facility] Comment on above: Performed By: #### L [id number] ####Poll Clerk: LIU MATHEWS ([phone])[facility] ([facility])[address] [place] [address] IMMATURE GRANS % 0.3 % Normal 0.0-2.0 [facility] Comment on above: Performed By: #### L [id number] ####Poll Clerk: LIU MATHEWS ([phone])[facility] ([facility])[address] [place] [address] IMMATURE GRANS ABSOLUTE 0.0 10*3/uL Normal <0.1 [facility] Comment on above: Performed By: #### L [id number] ####Poll Clerk: LIU MATHEWS ([phone])[facility] ([facility])[address] [place] [address] [place] Lymphocytes (Bld) [#/Vol] 2.0 10*3/uL Normal 1.0-4.3 [facility] Comment on above: Performed By: #### L [id number] ####Poll Clerk: LIU MATHEWS ([phone])[facility] ([facility])[address] [place] [address] [place] Lymphocytes/100 WBC (Bld) 22.9 % Normal 15.0-45.0 [facility] Comment on above: Performed By: #### L [id number] ####Poll Clerk: LIU MATHEWS ([phone])[facility] ([facility])[address] [place] [address] MCH (RBC) [Entitic mass] 30.9 pg Normal 26.0-34.0 [facility] Comment on above: Performed By: #### L [id number] ####Poll Clerk: LIU MATHEWS ([phone])[facility] ([facility])[address] [place] [address] MCHC 34.7 % Normal 30.5-36.0 [facility] Comment on above: Performed By: #### L [id number] ####Poll Clerk: LIU MATHEWS ([phone])[facility] ([facility])[address] [place] [address] MCV (RBC) [Entitic vol] 89.1 fL Normal 77.0-99.0 [facility] Comment on above: Performed By: #### L [id number] ####Poll Clerk: LIU MATHEWS ([phone])[facility] ([facility])[address] [place] [address] Monocytes (Bld) [#/Vol] 0.6 10*3/uL Normal 0.0-0.9 [facility] Comment on above: Performed By: #### L [id number] ####Poll Clerk: LIU MATHEWS ([phone])[facility] ([facility])[address] [place] [address] [place] Monocytes/100 WBC (Bld) 7.1 % Normal 5.0-13.0 [facility] Comment on above: Performed By: #### L [id number] ####Poll Clerk: LIU MATHEWS ([phone])[facility] ([facility])[address] [place] [address] [place] NEUTROPHILS ABSOLUTE 5.8 10*3/uL Normal 1.8-7.5 [facility] Comment on above: Performed By: #### L [id number] ####Poll Clerk: LIU MATHEWS ([phone])[facility] ([facility])[address] [place] [address] Neutrophils/100 WBC (Bld) 67.0 % Normal 38.0-82.0 [facility] Comment on above: Performed By: #### L [id number] ####Poll Clerk: LIU MATHEWS ([phone])[facility] ([facility])[address] [place] [address] [place] NRBC 0.0 /100 WBCs Normal 0.0-2.0 [facility] Comment on above: Performed By: #### L [id number] ####Poll Clerk: LIU MATHEWS ([phone])[facility] ([facility])[address] [place] [address] Platelet mean volume (Bld) [Entitic vol] 9.1 fL Normal 9.0-12.7 [facility] Comment on above: Result Comment: MPV is a calculated measurement using platelet volume ratio Performed By: #### L [id number] ####Poll Clerk: LIU MATHEWS ([phone])[facility] ([facility])[address] [place] [address] [place] Platelets (Bld) [#/Vol] 385 10*3/uL Normal 140-440 [facility] Comment on above: Performed By: #### L [id number] ####Poll Clerk: LIU MATHEWS ([phone])[facility] ([facility])[address] [place] [address] RBC (Bld) [#/Vol] 4.30 10*6/uL Low 4.40-5.90 [facility] Comment on above: Performed By: #### L [id number] ####Poll Clerk: LIU MATHEWS ([phone])[facility] ([facility])[address] [place] [address] [place] WBC (Bld) [#/Vol] 8.6 10*3/uL Normal 3.6-10.7 [facility] Comment on above: Performed By: #### L [id number] ####Poll Clerk: LIU MATHEWS ([phone])[facility] ([facility])[address] COMPLETE URINALYSIS WITH REF SOFYA TO HIRAL 03-03-2025 BILIRUBIN, TOTAL PRESENCE IN URINE Negative Normal Negative [facility] Comment on above: Performed By: #### L [id number] ####Poll Clerk: LIU MATHEWS ([phone])[facility]AREA SREEK[facility]TH [facility] (SWRL[facility])[address] Clarity (U) Clear Normal Clear [facility] Comment on above: Performed By: #### L [id number] ####Poll Clerk: LIU MATHEWS ([phone])[facility] ([facility])[address] [place] [address] Color (U) Colorless Normal Lt. Yellow [facility] Comment on above: Performed By: #### L [id number] ####Poll Clerk: LIU MATHEWS ([phone])[facility] ([facility])[address] [place] [address] GLUCOSE (MG/DL) IN URINE Normal Normal Normal (<70) [facility] Comment on above: Performed By: #### L [id number] ####Poll Clerk: LIU MATHEWS ([phone])[facility] ([facility])[address] [place] [address] [place] HEMOGLOBIN PRESENCE IN URINE Negative Normal Negative [facility] Comment on above: Performed By: #### L [id number] ####Poll Clerk: LIU MATHEWS ([phone])[facility] ([facility])[address] [place] [address] [place] Ketones Ql (U) Negative Normal Negative [facility] Comment on above: Performed By: #### L [id number] ####Poll Clerk: LIU MATHEWS ([phone])[facility] ([facility])[address] [place] [address] LEUKOCYTE ESTERASE PRESENCE IN URINE BY TEST STRIP Negative Normal Negative [facility] Comment on above: Performed By: #### L [id number] ####Poll Clerk: LIU MATHEWS ([phone])[facility] ([facility])[address] [place] [address] NITRITE PRESENCE IN URINE Negative Normal Negative [facility] Comment on above: Performed By: #### L [id number] ####Poll Clerk: LIU MATHEWS ([phone])[facility] ([facility])[address] [place] [address] pH (U) 8.0 [pH] Normal 5.0-8.0 [facility] Comment on above: Performed By: #### L [id number] ####Poll Clerk: LIU MATHEWS ([phone])[facility] ([facility])[address] [place] [address] Protein (U) [Mass/Vol] Negative Normal Negative [facility] Comment on above: Performed By: #### L [id number] ####Poll Clerk: LIU MATHEWS ([phone])[facility] ([facility])[address] [place] [address] Specific gravity (U) [Rel density] 1.005 Normal 1.005-1.030 [facility] Comment on above: Result Comment: PREET R COMMENTS: A specimen with <=10 WBC is not consistent with inflammation. This specimen will not reflex to a urine culture. Performed By: #### L [id number] ####Poll Clerk: LIU MATHEWS ([phone])[facility] ([facility])[address] [place] [address] [place] UROBILINOGEN (MG/DL) IN URINE Normal Normal Normal (0-1) [facility] Comment on above: Performed By: #### L [id number] ####Poll Clerk: LIU MATHEWS ([phone])[facility] ([facility])[address] [place] [address] COMPREHENSIVE METABOLIC PANE Héctor 03-03-2025 Albumin [Mass/Vol] 3.6 g/dL Normal 3.4-4.8 [facility] Comment on above: Performed By: #### Sho CONTRERAS, LAB17, LAB99 ####Poll Clerk: LIU MATHEWS ([phone])[facility]ARE[facility] CANALESSREEKANTH RITTMAN (SWRLAB)[address] ALP [Catalytic activity/Vol] 96 U/L Normal 40-150 [facility] Comment on above: Performed By: #### Sho CONTRERAS, LAB17, LAB99 ####Poll Clerk: LIU MATHEWS ([phone])[facility]NALESSREEKANTH R[facility] (SWRLAB)[address] ALT [Catalytic activity/Vol] 19 U/L Normal <40 [facility] Comment on above: Performed By: #### Sho CONTRERAS, LAB17, LAB99 ####Poll Clerk: LIU MATHEWS ([phone])[facility]NAL[facility]REEK[facility]TH R[facility] (SWRLAB)[address] Anion gap [Moles/Vol] 8 mmol/L Normal 3-13 [facility] Comment on above: Performed By: #### Sho CONTRERAS, LAB17, LAB99 ####Poll Clerk: LIU MATHEWS ([phone])[facility] (SWRL[facility])[address] AST [Catalytic activity/Vol] 27 U/L Normal <34 [facility] Comment on above: Result Comment: TC Potential interference from hemolysis Performed By: #### Sho CONTRERAS, LAB17, LAB99 ####Poll Clerk: LIU MATHEWS ([phone])[facility] (SWRL[facility])[address] Bilirubin [Mass/Vol] 0.4 mg/dL Normal <1.2 [facility] Comment on above: Performed By: #### Sho CONTRERAS, LAB17, LAB99 ####Poll Clerk: LIU MATHEWS ([phone])[facility] ([facility]RL[facility])[address] [place] [address] [place] Calcium [Mass/Vol] 9.2 mg/dL Normal 8.8-10.0 [facility] Comment on above: Performed By: #### L AB149, LAB17, LAB99 ####Poll Clerk: LIU MATHEWS ([phone])[facility] ([facility])[address] [place] [address] [place] Chloride [Moles/Vol] 100 mmol/L Normal 98-107 [facility] Comment on above: Performed By: #### L AB149, LAB17, LAB99 ####Poll Clerk: LIU MATHEWS ([phone])[facility] ([facility])[address] [place] [address] [place] CO2 [Moles/Vol] 30 mmol/L Normal 23-31 [facility] Comment on above: Performed By: #### Sho AB149, LAB17, LAB99 ####Poll Clerk: LIU MATHEWS ([phone])[facility] (SWRL[facility])[address] [place] [address] [place] Creatinine [Mass/Vol] 0.97 mg/dL Normal 0.72-1.25 [facility] Comment on above: Performed By: #### L AB149, LAB17, LAB99 ####Poll Clerk: LIU MATHEWS ([phone])[facility] ([facility])[address] [place] [address] [place] GLOMERULAR FILTRATION RATE ML/MIN/1.73 SQ M.PREDICTED 85.6 mL/min/1.73m*2 Normal >60.0 [facility] Comment on above: Result Comment: Calc ulation based on the Chronic Kidney Disease Epidemiology Collaboration (CKD-EPI) equation refit without adjustment for race Performed By: #### L AB149, LAB17, LAB99 ####Poll Clerk: LIU MATHEWS ([phone])[facility] ([facility])[address] Glucose [Mass/Vol] 91 mg/dL Normal 82-115 [facility] Comment on above: Performed By: #### Sho CONTRERAS, LAB17, LAB99 ####Poll Clerk: LIU MATHEWS ([phone])[facility]ARE[facility] (SWRL[facility])[address] [place] [address] Potassium [Moles/Vol] 4.5 mmol/L Normal 3.5-5.1 [facility] Comment on above: Result Comment: [facility] potassium values may be up to 0.5 mmol/L lower than serum values. Performed By: #### Sho CONTRERAS, LAB17, LAB99 ####Poll Clerk: LIU MATHEWS ([phone])[facility] (SWRL[facility])[address] [place] [address] Protein [Mass/Vol] 6.9 g/dL Normal 6.4-8.3 [facility] Comment on above: Performed By: #### Sho CONTRERAS, LAB17, LAB99 ####Poll Clerk: LIU MATHEWS ([phone])[facility] (SWRL[facility])[address] [place] [address] Sodium [Moles/Vol] 138 mmol/L Normal 136-145 [facility] Comment on above: Performed By: #### Sho CONTRERAS, LAB17, LAB99 ####Poll Clerk: LIU MATHEWS ([phone])[facility] ([facility])[address] [place] [address] Urea nitrogen [Mass/Vol] 18 mg/dL Normal 9-23 [facility] Comment on above: Performed By: #### Sho CONTRERAS, LAB17, LAB99 ####Poll Clerk: LIU MATHEWS ([phone])[facility] (SWRL[facility])[address] [place] [address] Comprehensive metabolic 1998 panelon 03-03-2025 Albumin [Mass/Vol] 3.6 g/dL 3.4 - 4.8 g/dL [facility] ALP [Catalytic activity/Vol] 96 U/L 40 - 150 U/L [facility] ALT [Catalytic activity/Vol] 19 U/L NINF - 40 U/L [facility] Anion gap [Moles/Vol] 8 mmol/L 3 - 13 mmol/L [facility] AST [Catalytic activity/Vol] 27 U/L [facility] - 34 U/L [facility] Comment on above: TC Potential interference from hemolysis Bilirubin [Mass/Vol] 0.4 mg/dL NINF - 1.2 mg/dL [facility] Calcium [Mass/Vol] 9.2 mg/dL 8.8 - 10. 0 mg/dL [facility] Chloride [Moles/Vol] 100 mmol/L 98 - 10 7 mmol/L [facility] CO2 [Moles/Vol] 30 mmol/L 23 - 31 mmol/L [facility] Creatinine [Mass/Vol] 0.97 mg/dL 0.72 - 1.25 mg/dL [facility] GFR/1.73 sq M.predicted (S/P/Bld) [Vol rate/Area] 85.6 mL/min - PINF [facility] Comment on above: Calculation based on the Chronic Kidney Disease Epidemiology Collaboration (CKD-EPI) equation refit without adjustment for race Glucose [Mass/Vol] 91 mg/dL 82 - 115 mg/dL [facility] Interpretation and review of laboratory results Normal [facility] Potassium [Moles/Vol] 4.5 mmol/L 3.5 - 5.1 mmol/L [facility] Comment on above: Plasma potassium solange ues may be up to 0.5 mmol/L lower than serum values. Protein [Mass/Vol] 6.9 g/dL 6.4 - 8.3 g/dL [facility] Sodium [Moles/Vol] 138 mmol/L 136 - 145 mmol/L [facility] Urea nitrogen [Mass/Vol] 18 mg/dL 9 - 23 mg/dL [facility] ED Nursing Noteon 03-03-2025 ED Nursing Note Pt ambulatory to [facility] with c/o constipation for 4 days. Pt reports that he has had recent gall bladder surgery but has not taken meds for 1+ weeks. Pt reports having general abdominal pain. Normal [facility] ED Provider Noteon ED Provider Note EMERGENCY DEPARTMENT ENCOUNTER Pt Name: Cortney Acosta Birthdate 1955 Date of evaluation: 03/03/2025 CHIEF COMPLAINT Chief Complaint Patient presents with ? Constipation HISTORY OF PRESENT ILLNESS History provided by: Spouse and patient Cortney Acosta is a 69 y.o. male who presents to the emergency department with constipation, last bowel movement was 3 days ago. No vomiting no diarrhea no fever no alcohol use recently. He did take an oxycodone Sunday. Having intermittent lower abdominal cramping. It does not get severe. REVIEW OF SYSTEMS Review of Systems Past Medical History: 04/07/2024: Acute midline low back pain without sciatica No date: Arthritis No date: Chronic back pain No date: Chronic pain No date: Degenerative joint disease of right hip No date: Hypertension 02/13/2024: Muscle spasm 08/15/2024: Rib pain on right side 02/13/2024: Upper back pain 08/15/2024: Viral URI with cough 04/07/2024: Weakness of both lower extremities Past Surgical History: 05/26/2024: BACK SURGERY 20 years ago: CARPAL TUNNEL RELEASE; Right No date: COLONOSCOPY No date: COLONOSCOPY 02/19/2025: LAP,CHOLECYSTECTOMY (HISTORICAL) 02/28/2022: TOTAL HIP ARTHROPLASTY; Right Comment: RIGHT TOTAL HIP ARTHROPLASTY WITH DIRECT ANDTERIOR APPROACH CURRENT MEDICATIONS Previous Medications ACETAMINOPHEN (TYLENOL) 500 MG TABLET Take 1,000 mg by mouth every 8 hours as needed for mild pain (1-3). BUSPIRONE (BUSPAR) 7.5 MG TABLET Take 1 tablet (7.5 mg) by mouth 2 times daily. LOSARTAN (COZAAR) 100 MG TABLET Take 0.5 tablets (50 mg) by mouth Nightly. MELOXICAM (MOBIC) 15 MG TABLET TAKE 1 TABLET BY MOUTH EVERY MORNING WITH FOOD TO REDUCE SWELLING. DO NOT TAKE WITH OTHER NSAIDS (IBUPROFEN, ADVIL, MOTRIN, ALEVE,OR NAPROXEN) ONDANSETRON (ZOFRAN) 4 MG TABLET Take 1 tablet (4 mg) by mouth every 8 hours as needed for nausea or vomiting. ROSUVASTATIN (CRESTOR) 5 MG TABLET Take 1 tablet (5 mg) by mouth daily. ALLERGIES Penicillins SOCIAL HISTORY Social History Socioeconomic History ? Marital status: Spouse name: Not on file ? Number of children: Not on file ? Years of education: Not on file ? Highest education level: Not on file Occupational History ? Not on file Tobacco Use ? Smoking status: Never ? Smokeless tobacco: Former Quit date: 12/2023 Vaping Use ? Vaping status: Never Used Substance and Sexual Activity ? Alcohol use: Not Currently Alcohol/week: 2.0 standard drinks of alcohol Types: 2 Standard drinks or equivalent per week Comment: Very occasional ? Drug use: No ? Sexual activity: Not on file Other Topics Concern ? Not on file Social History Narrative Lives at home with - of 30 years Rebekah - 1 boy son previous-partner. 1 child from previous partner son- lives in [place] (somewhat estranged). 8 grandkids and 1 great. 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 Rebekah at home- good health- fibromylgia. Social Drivers of Health Financial Resource Strain: Low Risk (12/11/2024) Overall Financial Resource Strain (CARDIA) ? Difficulty of Paying Living Expenses: Not very hard Food Insecurity: No Food Insecurity (12/11/2024) Hunger Vital Sign ? Worried About Running Out of Food in the Last Year: Never true ? Ran Out of Food in the Last Year: Never true Transportation Needs: No Transportation Needs (12/11/2024) PRAPARE - Transportation ? Lack of Transportation (Medical): No ? Lack of Transportation (Non-Medical): No Physical Activity: Sufficiently Active (12/11/2024) Exercise Vital Sign ? Days of Exercise per Week: 7 days ? Minutes of Exercise per Session: 150+ min Stress: No Stress Concern Present (12/11/2024) [employer] - Occupational Stress Questionnaire ? Feeling of Stress : Not at all Social Connections: Moderately Isolated (12/11/2024) Social Connection and Isolation Panel [NHANES] ? Frequency of Communication with Friends and Family: More than three times a week ? Frequency of Social Gatherings with Friends and Family: Three times a week ? Attends Zoroastrian Services: Never ? Active Member of Clubs or Organizations: No ? Attends Club or Organization Meetings: Never ? Marital Status: Intimate Partner Violence: Not At Risk (02/19/2025) Humiliation, Afraid, Rape, and Kick questionnaire ? Fear of Current or Ex-Partner: No ? Emotionally Abused: No ? Physically Abused: No ? Sexually Abused: No Housing Stability: Low Risk (12/11/2024) Housing Stability Vital Sign ? Unable to Pay for Housing in the Last Year: No ? Number of Times Moved in the Last Year: 0 ? Homeless in the Last Year: No PHYSICAL EXAM Vitals: 03/03/25 1552 BP: (!) 156/98 BP Location: Right arm Patient Position: Lying Pulse: 65 Resp: 16 Temp: 36.9 ?C (98.5 ?F) TempSrc: Oral SpO2: 100% Weight: 63 kg (139 lb) Height: 1.651 m (5' 5") Physical Exam Vitals and nursing note reviewe (more content not included)... Normal [facility] LIPASEon 03-03-2025 Lipase [Catalytic activity/Vol] 30 U/L Normal <55 [facility] Comment on above: Performed By: #### L AB149, LAB17, LAB99 ####Poll Clerk: LIU MATHEWS ([phone])[facility] [place] [address] Laboratory - Chemistry and C hemistry - challengeon 03-03-2025 Lipase [Catalytic activity/Vol] 30 U/L NINF - 55 U/L [facility] CRP [Mass/Vol] 3.1 mg/L [facility] - 5.0 mg/L [facility] No Panel Informationon 03-03 Interpretation and review of laboratory results Normal [facility] Urinalysis complete panel (U )on 03-03-2025 Bilirubin Ql (U) Negative Negative mg/dL [facility] Clarity (U) Clear Clear [facility] Color (U) Colorless Lt. Yellow [facility] Glucose Ql (U) Normal Normal (<70) mg/dL [facility] Hemoglobin Ql (U) Negative Negative mg/dL [facility] Interpretation and review of laboratory results Normal [facility] Ketones (U) [Mass/Vol] Negative Negat sanaz mg/dL [facility] Leukocyte esterase Test strip Ql (U) Negative Negative Christine/uL [facility] Nitrite Ql (U) Negative Negative [facility] pH (U) 8.0 [pH] 5.0 - 8.0 pH [facility] Protein (U) [Mass/Vol] Negative Negat sanaz mg/dL [facility] Specific gravity (U) [Rel density] 1.005 1.005 - 1.030 [facility] Urobilinogen (U) [Mass/Vol] Normal Normal (0-1) mg/dL [facility] A specimen with <=10 WBC is not consistent with inflammation. This specimen will not reflex to a urine culture. [facility] 36on 03-02-2025 36 S: Patient called [facility] regarding patient had gallbladder surg he now have blister by the incision site B: Per nurse triage ticket created by PALS A: Patient disconnected prior to speaking with nurse. Upon return call to patient, he is at the office Reason for Disposition ? Patient already left for the hospital/clinic Protocols used: No Contact or Duplicate Contact [id number] [facility] Office Visiton 03-02-2025 Follow-up visit [id number] Cortney Acosta 1955 M Date Provider Department Center 03/02/2025 YESENIA HINES [facility] GS None Family History Problem Relation Age of Onset Emphysema Mother Cancer Father Family Status - Relation Status Age at Mother Father Level of Service:94551 PA POSTOP FOLLOW UP VISIT RELATED TO ORIGINAL PX Reason for Visit and Comments: Post-op [483] - PO Lap devora 02/19 blisters in between the incision [facility] 36on 02-23-2025 36 Notified, no further questions. [place] [id number] Rx sent for Zofran t hat he can take every 8 hours as needed. [place] [id number] Called and spoke to Cortney regarding Jury Duty excuse. States that he has been having nausea because of his gallbladder and him needing it removed, is wondering if we could send him in something to help with nausea. Local pharmacy verified, please send to [facility]. [place] [id number] Okay for letter excusing him from jury duty due to chronic and acute health conditions that would impair his ability to perform the requirements necessary. [place] [id number] Called and spoke wit h patient, states he would like to be excused due to medical issues. Please advise, thank you [place] [phone] He did not sruthi why he was requesting to be excused from jury duty. Normal [facility] 36 PT states he needs t o get a letter excusing him from Jury Duty. [facility] 36on 02-21-2025 36 S: Patient spoke kelsea EVANS nurse regarding constipation B: 02/19/25 Cholecystectomy A: Patient calling to ask if something else can be prescribed for pain that will not constipate him. Reports he has been taking stool softeners, last BM was 02/19/25. Denies any symptoms but wanted to stop taking the oxycodone before constipation gets any worsse R: Message to Provider Discussed Miralax and other otc options for constipation Patient understands care advice. No further needs at this time. Patient instructed to call back with new or worsening symptoms. Reason for Disposition ? Taking new prescription medication Protocols used: [id number] [facility] 36on 02-20-2025 36 Patient had lap chol e 02/19. Pain in upper right shoulder. Trying not to take pain medications. Inquiring about if he had nerve block, he was in severe pain and didn't feel like he had a block. Wanted to give and FYI to possibley pass onto same day surger dept. He feels he was discharged too soon, like he was being pushed out. Told if he stays any longer he would have to stay the night, does not remember leaving the hospital. Thought he should have been a little more awake. Had to have help getting out of vehicle once he arrived at home. [facility] Nursing Noteon 02-19-2025 Nursing Note Patient verbalized readiness to leave. Patient left with all medications, discharge paperwork, and verbalized all belongings present. Patient and family verbalized understanding of patient education. Patient left in wheelchair with family to drive. All questions answered. [facility] Nursing Note To phase 2 via cart report to bud tolerated cracker and clear liquids well [facility] Nursing Note Patient educated on importance of coughing/ deep breathing after surgery to reduce risk of pneumonia. Patient educated on importance of early mobility to reduce the risk of blood clots. Falls prevention information reviewed with patient. Post-operative pain control and ways to prevent constipation discussed with patient. at bedside [facility] Office Visiton 02-18-2025 Follow-up visit [id number] Cortney Acosta 1955 M Date Provider Department Center 02/18/2025 [id number] GALVEZ [facility] SMB GS None Family History Problem Relation Age of Onset Emphysema Mother Cancer Father Family Status - Relation Status Age at Mother Father Level of Service:93971 PA OFFICE/OUTPATIENT NEW MODERATE MDM 45 MINUTES Reason for Visit and Comments: New Patient [542] - [employer] Gallbladder Normal [facility] 36on 02-17-2025 36 Referral done Normal [facility] 36 The patient stopped in the office stating that Dr. Young is requesting that the patient see a surgeon---can you place an order to have the gallbladder removed. A fax is on Dr Chamorro's desk. [facility] Hepatobilliary Imagingon Hepatobilliary Imaging [facility] Imaging Services [address] [place] [id number] Hepatobilliary Imaging MR#: [id number] Acct: [id number] Name: CORTNEY ACOSTA Rep #: [id number] : 1955 M 69 From: Kun Khan MD PCP: Dr. Anthony Chamorro MD Status: REG CLI Study: Hepatobilliary Imaging Date of Exam: 02/11/25 Exam# [id number] Ordering Dr: Ilan Tariq PMiki PROCEDURE: HEPATOBILIARY IMAGING 02/11/2025 REASON FOR EXAM: RUQ PAIN TECHNIQUE: Intravenous Choletec with planar imaging of the abdomen. RADIOPHARMACEUTICAL: 5.8 mCi technetium 99 M mebrofenin COMPARISON: 2019 FINDINGS: Homogeneous and prompt liver activity. CBD and proximal bowel activity by 30 minutes. Gallbladder activity by 2 hours. NM/Hepatobilliary Imaging IMPRESSION: Patent cystic and common bile ducts. Delayed gallbladder visualization is a nonspecific finding, correlate for possible gallbladder dysfunction. Reading Location: [place] [address] CC: [employer]ER-Burke Tariq; Dr. Anthony Chamorro MD Manager Of Health: Signed [facility] 36on 01-29-2025 36 The patient stopped in the office stating Dr Hopkins's office cannot get him in to be seen until the end of February. He said that he can't wait that long. I called Dr Young in [place]--gastro---he can get him in next week---please place referral and I will fax to their office. Normal [facility] CNPNon 01-28-2025 CNPN Telephone (GSTNOR) CASTILLO ACOSTA ([id number]) 1955 M Date Time Provider Department 01/28/25 MALENA MACIAS GSTNOR During your visit today, we recorded the following information about you: Ignacio Daniel 01/28/2025 2:56 PM Signed Received referral form [facility] for ruq abdominal pain. Called patient and lvm. Allergies As of Date: 01/28/2025 (Not on File) Date Reviewed: Never Reviewed Problem List As Of Date: 01/28/2025 (None) Encounter Status:Closed by IGNACIO DANIEL on 01/28/25 [facility] 29on 01-27-2025 29 Addended by: ILAN TARIQ on: 01/28/2025 10:18 AM Modules accepted: Level of Service [facility] 36on 01-27-2025 Marcial Baldwin asked me to schedule patient today at end of day with her. Normal [facility] 36 The patient stopped in the office---had to leave work due to pain in right side and back/neck. He went to [facility] and they did a bone scan. He states that it showed degenerative changes. He states that he can't take the pain and is requesting an appointment. Please advise. The patient states that he feels it is his gallbladder but the testing came back normal. He states that it gets worse with foods that he eats---greasy. Our first available is a virtual on 02-17-25. The first available with pain management is 02-23-25. Normal [facility] Office Visiton 01-27-2025 Follow-up visit [id number] Cortney Acosta 1955 M Date Provider Department Center 01/27/2025 [id number] TARIQ [facility] Family History Problem Relation Age of Onset Emphysema Mother Cancer Father Family Status - Relation Status Age at Mother Father Level of Service:92734 PA OFFICE/OUTPATIENT ESTABLISHED MOD MDM 30 MIN Reason for Visit and Comments: Back Pain [12] Flank Pain [697326] - Right side Normal [facility] Progress Noteon 01-27-2025 Progress Note Controlled. Blood pressure 129/78. Continue losartan 50 mg nightly, Normal [facility] Progress Note His recent labs were unremarkable. Okay to stay off the statin for another couple weeks to see if it makes any difference. If it does not I would recommend restarting it Normal [facility] Progress Note Patient has had rece nt labs unremarkable, multiple imaging unremarkable for GB dysfunction. Will order HIDA scan to further evaluate. Refer to gastroenterology for further evaluation. Tramadol for short-term use. OARRS reviewed and consistent with treatment plan. Normal [facility] Progress Note Patient was identifi ed by name and Date of . Normal [facility] Progress Note 01/27/2025 Cortney Acosta (: 1955) is a 69 y.o. male , Established patient, here for evaluation of the following chief complaint(s): Back Pain and Flank Pain (Right side ) ASSESSMENT/PLAN: 1. RUQ pain Assessment & Plan: Patient has had recent labs unremarkable, multiple imaging unremarkable for GB dysfunction. Will order HIDA scan to further evaluate. Refer to gastroenterology for further evaluation. Tramadol for short-term use. OARRS reviewed and consistent with treatment plan. Orders: - NM hepatobiliary scan with pharm agent w/cck - [facility] - traMADol (Ultram) 50 MG tablet; Take 1 tablet (50 mg) by mouth every 6 hours as needed for severe pain (7-10) for up to 7 days., Starting 01/27/2025, Until Sun02/03/2025 at 2359, Normal 2. Primary hypertension Assessment & Plan: Controlled. Blood pressure 129/78. Continue losartan 50 mg nightly, 3. Myalgia Assessment & Plan: His recent labs were unremarkable. Okay to stay off the statin for another couple weeks to see if it makes any difference. If it does not I would recommend restarting it Follow up for as directed pending test results. SUBJECTIVE/OBJECTIVE: EVETTE Acosta (: 1955) is a 69 y.o. male , Established patient, here for the evaluation of the following chief complaint(s): Back Pain and Flank Pain (Right side ) Patient presents for ongoing problems with right-sided back pain and right upper quadrant pain. This has been going on for several years and he has had significant workup for his back pain which showed some degenerative changes. He has had the right upper quadrant evaluated several years ago with concerns at that time for gallbladder problems. He did have a negative HIDA scan in 2019. 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 He really thinks the majority of his thoracic and right upper quadrant pain is related to his gallbladder. He most recently had a whole-body scan completed by orthopedics on January 19, 2025 that showed no evidence of osseous metastatic disease and showed mild degenerative changes of the spine and multiple joints. He was offered a referral to pain management and has scheduled with them in February. Hereports the pain can be pretty severe and he had to leave work due to the pain. He is contributing it to having greasy foods over the past couple of days. Reports pain is worse after eating, this has been going on for years, ruq pain, nauseated. No fever or chills. Most recent labs have been unremarkable. He did stop taking the cholesterol medicine about 2 weeks ago to see if it would help with any of his arthralgias, so far it has not Current Medications[1] Review of Systems Constitutional: Positive for fatigue. Negative for activity change and chills. HENT: Negative. Respiratory: Negative. Cardiovascular: Negative. Gastrointestinal: Positive for abdominal pain and nausea. Negative for blood in stool, constipation, diarrhea and vomiting. Genitourinary: Negative for difficulty urinating. Musculoskeletal: Positive for arthralgias and back pain. Neurological: Negative. Vitals: 01/27/25 1543 BP: 129/78 Pulse: 71 Resp: 16 SpO2: 97% Weight: 146 lb (66.2 kg) Physical Exam Vitals reviewed. Constitutional: General: He is not in acute distress. Appearance: Normal appearance. He is not ill-appearing. HENT: Head: Normocephalic and atraumatic. Mouth/Throat: Mouth: Mucous membranes are moist. Pharynx: Oropharynx is clear. No posterior oropharyngeal erythema. Eyes: Conjunctiva/sclera: Conjunctivae normal. Cardiovascular: Rate and Rhythm: Normal rate and regular rhythm. Pulses: Normal pulses. Heart sounds: Normal heart sounds. Pulmonary: Effort: Pulmonary effort is normal. Breath sounds: Normal breath sounds. Abdominal: General: Bowel sounds are normal. Palpations: Abdomen is soft. There is no hepatomegaly or splenomegaly. Tenderness: There is abdominal tenderness in the right upper quadrant. There is no right CVA tenderness, left CVA tenderness, guarding or rebound. Negative signs include Cardenas's sign, Rovsing's sign, McBurney's sign, psoas sign and obturator sign. Musculoskeletal: Arms: Right lower leg: No edema. Left lower leg: No edema. Comments: Able to get on and off the exam table without difficulty Lymphadenopathy: Cervical: No cervical adenopathy. Neurological: Mental Status: He is alert and oriented to person, place, and time. Psychiatric: Mood and Affect: Mood normal. Behavior: Behavior normal. Thought Content: Thought content normal. An electronic signature was used to authenticate this note. RONAN Lagunas CNP 01/27/2025 7:36 PM [1] Current Outpatient Medications Medication Sig Dispense Refill acetaminophen (Tylenol) 500 MG tablet Take 1,000 mg by mouth every 8 hours as needed for mild pain (1-3). busPIRone (Buspar) 7.5 MG tablet Take 1 tablet ( (more content not included)... Normal [facility] NM Whole body Bone Viewson 0 01-19-2025 No evidence of osseous metastatic disease. Mild degenerative changes of the joints as above. Report Dictated on Electronically Signed By: Marek Germain MD Electronically Signed Date/Time: 01/19/2025 1:58 PM [facility] Patient Name: CORTNEY ACOSTA : 1955 Exam Date/Time: 01/19/2025 09:12 Procedure: MD BONE WHOLE BODY Ordering Provider: HEAD DOUGLAS Reason For Exam: DDD (Degenerative disc disease) thoracic BONE SCINTIGRAPHY (WHOLE BODY) CLINICAL INDICATION: Back pain, degenerative disc disease Delayed whole body imaging was performed in the standard anterior and posterior projections following the intravenous administration of 23 mCi of technetium-99m MDP. Additional spot views of the skull, pelvis, and ribs were also obtained. COMPARISON: CT thoracic spine dated 01/04/2025 FINDINGS: No evidence of osseous metastatic disease is identified. A right hip arthroplasty is unremarkable in appearance. There is mild increased tracer uptake within the bilateral shoulders, left hip, bilateral knees, and bilateral ankles, likely degenerative etiology. No significant degenerative changes are seen within the thoracic spine or lumbar spine. There is no moderate or intense tracer uptake within the cervical, thoracic, or lumbar spine to suggest occult fracture or compression deformity. There is a trivial S-shaped scoliosis of the thoracolumbar spine. [facility] Marek Germain MD - 01/19/2025 Patient Name: CORTNEY ACOSTA : 1955 Exam Date/Time: 01/19/2025 09:12 Procedure: MD BONE WHOLE BODY Ordering Provider: HEAD DOUGLAS Reason For Exam: DDD (Degenerative disc disease) thoracic BONE SCINTIGRAPHY (WHOLE BODY) CLINICAL INDICATION: Back pain, degenerative disc disease Delayed whole body imaging was performed in the standard anterior and posterior projections following the intravenous administration of 23 mCi of technetium-99m MDP. Additional spot views of the skull, pelvis, and ribs were also obtained. COMPARISON: CT thoracic spine dated 01/04/2025 FINDINGS: No evidence of osseous metastatic disease is identified. A right hip arthroplasty is unremarkable in appearance. There is mild increased tracer uptake within the bilateral shoulders, left hip, bilateral knees, and bilateral ankles, likely degenerative etiology. No significant degenerative changes are seen within the thoracic spine or lumbar spine. There is no moderate or intense tracer uptake within the cervical, thoracic, or lumbar spine to suggest occult fracture or compression deformity. There is a trivial S-shaped scoliosis of the thoracolumbar spine. IMPRESSION: No evidence of osseous metastatic disease. Mild degenerative changes of the joints as above. Report Dictated on Electronically Signed By: Marek Germain MD Electronically Signed Date/Time: 01/19/2025 1:58 PM EDT [facility] Radiology Study observation (narrative) [facility] NM Whole body Bone ViewsOrde red By: Marek Germain on 01-19-2025 [facility] 36on 01-12-2025 36 Rx sent. OARRS repor t reviewed with no discrepancies. [facility] 36 Called and spoke wit h patient. Agreeable. [facility]. [facility] 36 I can prescribe some tramadol to tide him over until he sees the specialist. Would he be okay with that? [facility] 36 Pts came in and stated that pt had new pain starting ;st night. He's now got tingling going down his legs and he can't walk She states that they talked to Dr. Lanza at [facility] who let her know that pain medications need to be prescribed through this office. Pt's would like to know if Pt can get something to last him through until Cortney can see Pool on January 26. He's got a bone scan coming up. [facility] 36on 01-06-2025 36 Was able to get a sa me day appointment today with Dr. Chamorro [facility] 36 Name of caller: Cortney Contact phone number: [phone] Relationship to Patient: patient Provider: Pedro Pablo Practice: [facility] Chief Complaint/Reason for Call: patient called in stated he would like an order from doctor to get tested for tribe disease SB instructed him order was needed from PCP Best time of day caller can be reached: any Patient advised that office/PCP has 24-48 business hours to return their call: No [facility] Office Visiton 01-06-2025 Follow-up visit [id number] Cortney Acosta 1955 M Date Provider Department Center 01/06/2025 [id number] [facility]OMRRO [facility] Family History Problem Relation Age of Onset Emphysema Mother Cancer Father Family Status - Relation Status Age at Mother Father Level of Service:65099 PA OFFICE/OUTPATIENT ESTABLISHED MOD MDM 30 MIN Reason for Visit and Comments: Blood Work [818224] - Pt is asking to be tested for lyme disease Normal [facility] Progress Noteon 01-06-2025 Progress Note He is to continue hi s meloxicam and take his Medrol Dosepak that was prescribed. Lyme titers C-reactive protein and sed rate are ordered. Normal [facility] Progress Note He is to continue hi s meloxicam and take his Medrol Dosepak that was prescribed. Lyme titers C-reactive protein and sed rate are ordered. Normal [facility] Progress Note He is to continue hi s meloxicam and take his Medrol Dosepak that was prescribed. Lyme titers C-reactive protein and sed rate are ordered. Normal [facility] Progress Note Patient verified by last name and date of . [facility] Progress Note 01/06/2025 Cortney Acosta (: 1955) is a 69 y.o. male , Established patient, here for evaluation of the following chief complaint(s): Blood Work (Pt is asking to be tested for lyme disease ) ASSESSMENT/PLAN: 1. Myalgia Assessment & Plan: He is to continue his meloxicam and take his Medrol Dosepak that was prescribed. Lyme titers C-reactive protein and sed rate are ordered. Orders: - LYME ANTIBODY SCREEN WITH REFLEX TO IMMUNOBLOT - C-reactive protein - Sedimentation rate, automated 2. Pain of both shoulder joints Assessment & Plan: He is to continue his meloxicam and take his Medrol Dosepak that was prescribed. Lyme titers C-reactive protein and sed rate are ordered. Orders: - LYME ANTIBODY SCREEN WITH REFLEX TO IMMUNOBLOT - C-reactive protein - Sedimentation rate, automated 3. Chronic fatigue Assessment & Plan: He is to continue his meloxicam and take his Medrol Dosepak that was prescribed. Lyme titers C-reactive protein and sed rate are ordered. Orders: - LYME ANTIBODY SCREEN WITH REFLEX TO IMMUNOBLOT - C-reactive protein - Sedimentation rate, automated Follow up if symptoms worsen or fail to improve. SUBJECTIVE/OBJECTIVE: [facility] -Cortney comes in today for follow-up on his bilateral shoulder pain, muscle aches, fatigue and he says he is waiting on his bone scan which is to be done next week. And he will follow-up with Dr. Lanza for review of it. He has been to the emergency room a number of times for these complaints and he has had all kinds of blood work done but has never had Lyme titers drawn. He also has never had C-reactive protein or sed rate drawn. Review of Systems Constitutional: Negative for chills and fever. Respiratory: Negative for cough and shortness of breath. Cardiovascular: Negative for chest pain and palpitations. Musculoskeletal: Positive for arthralgias, back pain and myalgias. Neurological: Negative for weakness and numbness. Vitals: 01/06/25 0943 BP: 132/81 Pulse: 60 SpO2: 95% Weight: 143 lb 9.6 oz (65.1 kg) Height: 5' 5" (1.651 m) Physical Exam Vitals and nursing note reviewed. Constitutional: General: He is not in acute distress. Appearance: Normal appearance. Musculoskeletal: Comments: He has minimal tenderness to palpation of his back and shoulders, he has normal range of motion of his neck back upper extremities. Muscle strength is 5/5 both upper extremities in all directions and equal bilateral. Neurological: Mental Status: He is alert. An electronic signature was used to authenticate this note. Anthony Chamorro MD 01/06/2025 10:28 AM [facility] 29on 01-05-2025 29 Addended by: QUOC US on: 01/06/2025 10:15 AM Modules accepted: Level of Service [facility] ECG 12-LEADon 01-05-2025 ECG 12-LEAD IMPRESSION: Sinus rhythm Borderline low voltage, extremity leads Compared to ECG 11/30/24 No significant change Electronically Signed On 01-05-2025 01:29:03 EDT by Pan Hammer Normal [facility] Office Visiton 01-05-2025 Follow-up visit [id number] Cortney Acosta 1955 M Date Provider Department Center 01/05/2025 [id number] US [facility] Family History Problem Relation Age of Onset Emphysema Mother Cancer Father Family Status - Relation Status Age at Mother Father Level of Service:70617 PA OFFICE/OUTPATIENT ESTABLISHED MOD MDM 30 MIN Reason for Visit and Comments: ER Follow-up [831] - Pain between shoulder blades, 3-4 weeks ( feeling better at the moment) [facility] Progress Noteon 01-05-2025 Progress Note 01/05/2025 Cortney Acosta (: 1955) is a 69 y.o. male , Established patient, here for evaluation of the following chief complaint(s): ER Follow-up (Pain between shoulder blades, 3-4 weeks ( feeling better at the moment) ) ASSESSMENT/PLAN: 1. Chronic midline thoracic back pain - Chronic, etiology unknown, suspect some contribution from arthritis - Continue medications as prescribed by the ED - Follow-up with specialist as scheduled for bone scan on 01/19/2025 - Discussed signs and symptoms warranting immediate attention- verbalized understanding. - Will provide a letter excusing him from work this week Follow up if symptoms worsen or fail to improve. SUBJECTIVE/OBJECTIVE: HPI -Cortney presents today for follow-up from an ER visit due to back pain between both of his shoulder blades. This is a chronic issue for him. In the emergency room as well as orthopedics for this concern multiple times. He follows up with a provider at the [facility] and is actually supposed to have an entire body bone scan performed on 01/19/2025. He was told he has significant arthritis and bone spurs in his spine and shoulders. He presented to the ER primarily complaining of pain in his upper thoracic spine at the level of his shoulder blades. States he has been in constant pain for the last couple of months. Denies any associated chest pain. He was seen in the ER last month due to theseconcerns and at that time was worried he was having a heart attack, but his cardiac workup at that time was reassuring. Denies loss of bowel or bladder function. Denies any fecal or urinary retention. Denies saddle anesthesia. Was discharged from the ER with a Medrol Dosepak, ibuprofen 600 mg every 6 hours as needed, Robaxin, 1000 mg Tylenol, and a lidocaine 4% patch. States laying on his stomach helps to alleviate the pain- laying down in general". States he has had to leave work on multiple occasions due to this pain and is requesting a letter to excuse him from work this week to recover. The of his thoracic spine completed in the emergency room that was negative for acute findings. Did show mild degenerative changes. Review of Systems Respiratory: Negative for shortness of breath. Cardiovascular: Negative for chest pain. Musculoskeletal: Positive for back pain. Skin: Negative for color change and rash. Vitals: 01/05/25 1450 01/05/25 1517 BP: (!) 150/89 136/88 BP Location: Left arm Patient Position: Sitting BP Cuff Size: Adult Pulse: 79 SpO2: 97% Weight: 146 lb 9.6 oz (66.5 kg) Height: 5' 5" (1.651 m) Body mass index is 24.4 kg/m?. Physical Exam Constitutional: General: He is not in acute distress. Appearance: He is not ill-appearing or diaphoretic. Cardiovascular: Rate and Rhythm: Normal rate and regular rhythm. Heart sounds: Normal heart sounds. No murmur heard. No friction rub. Pulmonary: Effort: Pulmonary effort is normal. Breath sounds: Normal breath sounds. Musculoskeletal: Thoracic back: No swelling, edema, deformity, signs of trauma or spasms. Decreased range of motion. Back: Neurological: Mental Status: He is alert. Data Reviewed Labs: Imaging/Testing: Narrative & Impression Patient Name: CORTNEY ACOSTA : 1955 Exam Date/Time: 01/04/2025 12:48 Procedure: CT THORACIC SPINE WO IV CONTRAST Ordering Provider: BRITO MADISON Reason For Exam: acute on chronic pain, TTP in midline between shoulder blades with radiation bilaterally CT thoracic spine without contrast HISTORY: Pain TECHNIQUE: 1 mm axial images without intravenous contrast, multiplanar reconstructions Dose reduction was employed with automated exposure control. Mild degenerative changes. No fracture or dislocation. No back soft tissue abnormality. IMPRESSION: No acute findings. Report Dictated on Electronically Signed By: Delio Padgett MD Electronically Signed Date/Time: 01/04/2025 1:27 PM EDT An electronic signature was used to authenticate this note. Quoc Us APRN - CHUN 01/05/2025 3:21 PM Normal [facility] CBC W Auto Differential pane l (Bld)on 01-04-2025 Basophils (Bld) [#/Vol] 0 10*3/uL 0.0 - 0.2 10*3/uL [facility] Basophils/100 WBC (Bld) 0.3 % 0.0 - 2.0 % [facility] Eosinophils (Bld) [#/Vol] 0 10*3/uL 0.0 - 0.5 10*3/uL [facility] Eosinophils/100 WBC (Bld) 0.5 % 0.0 - 6.0 % [facility] Erythrocyte distribution width (RBC) [Ratio] 12.4 % 11.5 - 15.0 % [facility] Hematocrit (Bld) [Volume fraction] 41.3 % 40.0 - 52.0 % [facility] Hemoglobin (Bld) [Mass/Vol] 14 g/dL 13.0 - 18.0 g/dL [facility] Immature granulocytes (Bld) [#/Vol] 0 10*3/uL NINF - 0.1 10*3/uL [facility] Immature granulocytes/100 WBC (Bld) 0.2 % 0.0 - 2.0 % [facility] Interpretation and review of laboratory results Abnormal [facility] Lymphocytes (Bld) [#/Vol] 1.4 10*3/uL 1.0 - 4.3 10*3/uL [facility] Lymphocytes/100 WBC (Bld) 23.1 % 15.0 - 45.0 % [facility] MCH (RBC) [Entitic mass] 30.2 pg 26.0 - 34.0 pg [facility] MCHC (RBC) [Mass/Vol] 33.9 % 30.5 - 36.0 % [facility] MCV (RBC) [Entitic vol] 89 fL 77.0 - 99.0 fL [facility] Monocytes (Bld) [#/Vol] 0.4 10*3/uL 0.0 - 0.9 10*3/uL [facility] Monocytes/100 WBC (Bld) 6.1 % 5.0 - 13.0 % [facility] Neutrophils (Bld) [#/Vol] 4.1 10*3/uL 1.8 - 7.5 10*3/uL [facility] Neutrophils/100 WBC (Bld) 69.8 % 38.0 - 82.0 % [facility] Nucleated RBC/100 WBC (Bld) [Ratio] 0 % [facility] Platelet mean volume (Bld) [Entitic vol] 8.5 fL Low 9.0 - 12.7 fL [facility] Platelets (Bld) [#/Vol] 286 10*3/uL 140 - 440 10*3/uL [facility] RBC (Bld) [#/Vol] 4.64 10*6/uL 4.40 - 5.9 0 10*6/uL [facility] WBC (Bld) [#/Vol] 5.9 10*3/uL 3.6 - 10.7 10*3/uL [facility] CBC WITH AUTO DIFFERENTIALon 01-04-2025 Basophils (Bld) [#/Vol] 0.0 10*3/uL Normal 0.0-0.2 [facility] Comment on above: Performed By: #### L [id number] #### Poll Clerk: ZAIDA MORRISSEY ([phone]) [facility] [address] Basophils/100 WBC (Bld) 0.3 % Normal 0.0-2.0 [facility] Comment on above: Performed By: #### L [id number] #### Poll Clerk: ZAIDA MORRISSEY ([phone]) [facility] ([facility] [address] Eosinophils (Bld) [#/Vol] 0.0 10*3/uL Normal 0.0-0.5 [facility] Comment on above: Performed By: #### L [id number] #### Poll Clerk: ZAIDA MORRISSEY ([phone]) [facility] ([facility] [address] [place] [address] [place] Eosinophils/100 WBC (Bld) 0.5 % Normal 0.0-6.0 [facility] Comment on above: Performed By: #### L [id number] #### Poll Clerk: ZAIDA MORRISSEY ([phone]) [facility] ([facility] [address] Erythrocyte distribution width (RBC) [Ratio] 12.4 % Normal 11.5-15.0 [facility] Comment on above: Performed By: #### L [id number] #### Poll Clerk: ZAIDA MORRISSEY ([phone]) [facility] ([facility]) [address] Hematocrit (Bld) [Volume fraction] 41.3 % Normal 40.0-52.0 [facility] Comment on above: Performed By: #### L [id number] #### Poll Clerk: ZAIDA MORRISSEY ([phone]) [facility] ([facility]) [address] Hemoglobin (Bld) [Mass/Vol] 14.0 g/dL Normal 13.0-18.0 [facility] Comment on above: Performed By: #### L [id number] #### Poll Clerk: ZAIDA MORRISSEY ([phone]) [facility] ([facility]) [address] IMMATURE GRANS % 0.2 % Normal 0.0-2.0 [facility] Comment on above: Performed By: #### L [id number] #### Poll Clerk: ZAIDA MORRISSEY ([phone]) [facility] ([facility]) [address] IMMATURE GRANS ABSOLUTE 0.0 10*3/uL Normal <0.1 [facility] Comment on above: Performed By: #### L [id number] #### Poll Clerk: ZAIDA MORRISSEY ([phone]) [facility] ([facility]) [address] Lymphocytes (Bld) [#/Vol] 1.4 10*3/uL Normal 1.0-4.3 [facility] Comment on above: Performed By: #### L [id number] #### Poll Clerk: ZAIDA MORRISSEY ([phone]) [facility] ([facility] [address] Lymphocytes/100 WBC (Bld) 23.1 % Normal 15.0-45.0 [facility] Comment on above: Performed By: #### L [id number] #### Poll Clerk: ZAIDA MORRISSEY ([phone]) [facility] [address] MCH (RBC) [Entitic mass] 30.2 pg Normal 26.0-34.0 [facility] Comment on above: Performed By: #### L [id number] #### Poll Clerk: ZAIDA MORRISSEY ([phone]) [facility] ([facility]) [address] MCHC 33.9 % Normal 30.5-36.0 [facility] Comment on above: Performed By: #### L [id number] #### Poll Clerk: ZAIDA MORRISSEY ([phone]) [facility] ([facility]) [address] [place] [address] MCV (RBC) [Entitic vol] 89.0 fL Normal 77.0-99.0 [facility] Comment on above: Performed By: #### L [id number] #### Poll Clerk: ZAIDA MORRISSEY ([phone]) [facility] ([facility]) [address] Monocytes (Bld) [#/Vol] 0.4 10*3/uL Normal 0.0-0.9 [facility] Comment on above: Performed By: #### L [id number] #### Poll Clerk: ZAIDA MORRISSEY ([phone]) [facility] [address] Monocytes/100 WBC (Bld) 6.1 % Normal 5.0-13.0 [facility] Comment on above: Performed By: #### L [id number] #### Poll Clerk: ZAIDA MORRISSEY ([phone]) [facility] ([facility]) [address] NEUTROPHILS ABSOLUTE 4.1 10*3/uL Normal 1.8-7.5 [facility] Comment on above: Performed By: #### L [id number] #### Poll Clerk: ZAIDA MORRISSEY ([phone]) [facility] [address] Neutrophils/100 WBC (Bld) 69.8 % Normal 38.0-82.0 [facility] Comment on above: Performed By: #### L [id number] #### Poll Clerk: ZAIDA MORRISSEY ([phone]) [facility] [address] NRBC 0.0 /100 WBCs Normal 0.0-2.0 [facility] Comment on above: Performed By: #### L [id number] #### Poll Clerk: ZAIDA MORRISSEY ([phone]) [facility] ([facility] [address] Platelet mean volume (Bld) [Entitic vol] 8.5 fL Low 9.0-12.7 [facility] Comment on above: Performed By: #### L [id number] #### Poll Clerk: ZAIDA MORRISSEY ([phone]) [facility] ([facility]) [address] [place] [address] [place] Platelets (Bld) [#/Vol] 286 10*3/uL Normal 140-440 [facility] Comment on above: Performed By: #### L [id number] #### Poll Clerk: ZAIDA MORRISSEY ([phone]) [facility] [address] [place] [address] [place] RBC (Bld) [#/Vol] 4.64 10*6/uL Normal 4.40-5.90 [facility] Comment on above: Performed By: #### L [id number] #### Poll Clerk: ZAIDA MORRISSEY ([phone]) [facility] ([facility] [address] [place] [address] [place] WBC (Bld) [#/Vol] 5.9 10*3/uL Normal 3.6-10.7 [facility] Comment on above: Performed By: #### L [id number] #### Poll Clerk: ZAIDA MORRISSEY ([phone]) [facility] [address] COMPREHENSIVE METABOLIC PANE Héctor 01-04-2025 Albumin [Mass/Vol] 3.8 g/dL Normal 3.4-4.8 [facility] Comment on above: Performed By: #### Sho [id number], [id number] ####Poll Clerk: ZAIDA MORRISSEY ([phone])[facility] ([facility])[address] ALP [Catalytic activity/Vol] 59 U/L Normal 40-150 [facility] Comment on above: Performed By: #### Sho [id number], [id number] ####Poll Clerk: ZAIDA MORRISSEY ([phone])[facility] ([facility])[address] ALT [Catalytic activity/Vol] 14 U/L Normal <40 [facility] Comment on above: Performed By: #### Sho AB17, [id number] ####Poll Clerk: ZAIDA MORRISSEY ([phone])[facility] ([facility])[address] Anion gap [Moles/Vol] 9 mmol/L Normal 3-13 [facility] Comment on above: Performed By: #### L AB17, [id number] ####Poll Clerk: ZAIDA MORRISSEY ([phone])[facility] ([facility])[address] AST [Catalytic activity/Vol] 17 U/L Normal <34 [facility] Comment on above: Performed By: #### L AB17, [id number] ####Poll Clerk: ZAIDA MORRISSEY ([phone])[facility] ([facility])[address] [place] [address] [place] Bilirubin [Mass/Vol] 0.5 mg/dL Normal <1.2 [facility] Comment on above: Performed By: #### Sho [id number], [id number] ####Poll Clerk: ZAIDA MORRISSEY ([phone])[facility] ([facility])[address] Calcium [Mass/Vol] 9.3 mg/dL Normal 8.8-10.0 [facility] Comment on above: Performed By: #### Sho AB17, [id number] ####Poll Clerk: ZAIDA MORRISSEY ([phone])[facility] ([facility])[address] Chloride [Moles/Vol] 104 mmol/L Normal 98-107 [facility] Comment on above: Performed By: #### Sho NEWBERRY17, [id number] ####Poll Clerk: ZAIDA MORRISSEY ([phone])[facility] ([facility])[address] CO2 [Moles/Vol] 26 mmol/L Normal 23-31 [facility] Comment on above: Performed By: #### Sho COLVIN, [id number] ####Poll Clerk: ZAIDA MORRISSEY ([phone])[facility] ([facility])[address] Creatinine [Mass/Vol] 0.95 mg/dL Normal 0.72-1.25 [facility] Comment on above: Performed By: #### L AB17, [id number] ####Poll Clerk: ZAIDA MORRISSEY ([phone])[facility] ([facility])[address] GLOMERULAR FILTRATION RATE ML/MIN/1.73 SQ M.PREDICTED 87.7 mL/min/1.73m*2 Normal >60.0 [facility] Comment on above: Result Comment: Calc ulation based on the Chronic Kidney Disease Epidemiology Collaboration (CKD-EPI) equation refit without adjustment for race Performed By: #### L AB17, [id number] ####Poll Clerk: ZAIDA MORRISSEY ([phone])[facility] ([facility])[address] Glucose [Mass/Vol] 103 mg/dL Normal 82-115 [facility] Comment on above: Performed By: #### Sho NEWBERRY17, [id number] ####Poll Clerk: ZAIDA MORRISSEY ([phone])[facility] ([facility])[address] Potassium [Moles/Vol] 4.8 mmol/L Normal 3.5-5.1 [facility] Comment on above: Result Comment: [facility] potassium values may be up to 0.5 mmol/L lower than serum values. Performed By: #### Sho NEWBERRY17, [id number] ####Poll Clerk: ZAIDA MORRISSEY ([phone])[facility] ([facility])[address] Protein [Mass/Vol] 6.7 g/dL Normal 6.4-8.3 [facility] Comment on above: Performed By: #### Sho COLVIN, [id number] ####Poll Clerk: ZAIDA MORRISSEY ([phone])[facility] ([facility])[address] Sodium [Moles/Vol] 139 mmol/L Normal 136-145 [facility] Comment on above: Performed By: #### Sho COLVIN, [id number] ####Poll Clerk: ZAIDA MORRISSEY ([phone])[facility] ([facility])[address] Urea nitrogen [Mass/Vol] 18 mg/dL Normal 9-23 [facility] Comment on above: Performed By: #### Sho AB17, [id number] ####Poll Clerk: ZAIDA MORRISSEY ([phone])[facility] ([facility])[address] [facility]ORACIC SPINE WO IV CONTRAST Patient Name: CORTNEY ACOSTA : 1955 Exam Date/Time: 01/04/2025 12:48 Procedure: CT THORACIC SPINE WO IV CONTRAST Ordering Provider: BRITO MADISON Reason For Exam: acute on chronic pain, TTP in midline between shoulder blades with radiation bilaterally CT thoracic spine without contrast HISTORY: Pain TECHNIQUE: 1 mm axial images without intravenous contrast, multiplanar reconstructions Dose reduction was employed with automated exposure control. Mild degenerative changes. No fracture or dislocation. No back soft tissue abnormality. IMPRESSION: No acute findings. Report Dictated on Electronically Signed By: Delio Padgett MD Electronically Signed Date/Time: 01/04/2025 1:27 PM EDT Pt complains of mid back pack and lower back pain x 6 weeks. No known cause of injury Normal [facility] CT Thoracic spine WO contras ton 01-04-2025 No acute findings. Report Dictated on Electronically Signed By: Delio Padgett MD Electronically Signed Date/Time: 01/04/2025 1:27 PM EDT [facility] Patient Name: CORTNEY ACOSTA : 1955 Exam Date/Time: 01/04/2025 12:48 Procedure: CT THORACIC SPINE WO IV CONTRAST Ordering Provider: BRITO MADISON Reason For Exam: acute on chronic pain, TTP in midline between shoulder blades with radiation bilaterally CT thoracic spine without contrast HISTORY: Pain TECHNIQUE: 1 mm axial images without intravenous contrast, multiplanar reconstructions Dose reduction was employed with automated exposure control. Mild degenerative changes. No fracture or dislocation. No back soft tissue abnormality. [facility] Delio Padgett MD - 01/04/2025 Patient Name: CORTNEY ACOSTA : 1955 Exam Date/Time: 01/04/2025 12:48 Procedure: CT THORACIC SPINE WO IV CONTRAST Ordering Provider: BRITO MADISON Reason For Exam: acute on chronic pain, TTP in midline between shoulder blades with radiation bilaterally CT thoracic spine without contrast HISTORY: Pain TECHNIQUE: 1 mm axial images without intravenous contrast, multiplanar reconstructions Dose reduction was employed with automated exposure control. Mild degenerative changes. No fracture or dislocation. No back soft tissue abnormality. IMPRESSION: No acute findings. Report Dictated on Electronically Signed By: Delio Padgett MD Electronically Signed Date/Time: 01/04/2025 1:27 PM EDT [facility] Radiology Study observation (narrative) [facility] CT Thoracic spine WO contras tOrdered By: Delio Padgett on 01-04-2025 [facility] Work Phone: Comprehensive metabolic 1998 panelon 01-04-2025 Albumin [Mass/Vol] 3.8 g/dL 3.4 - 4.8 g/dL [facility] ALP [Catalytic activity/Vol] 59 U/L 40 - 150 U/L [facility] ALT [Catalytic activity/Vol] 14 U/L [facility] - [facility] U/L [facility] Anion gap [Moles/Vol] 9 mmol/L 3 - 13 mmol/L [facility] AST [Catalytic activity/Vol] 17 U/L [facility] - 34 U/L [facility] Bilirubin [Mass/Vol] 0.5 mg/dL [facility] - 1.2 mg/dL [facility] Calcium [Mass/Vol] 9.3 mg/dL 8.8 - 10. 0 mg/dL [facility] Chloride [Moles/Vol] 104 mmol/L 98 - 10 7 mmol/L [facility] CO2 [Moles/Vol] 26 mmol/L 23 - 31 mmol/L [facility] Creatinine [Mass/Vol] 0.95 mg/dL 0.72 - 1.25 mg/dL [facility] GFR/1.73 sq M.predicted (S/P/Bld) [Vol rate/Area] 87.7 mL/min - PINF [facility] Comment on above: Calculation based on the Chronic Kidney Disease Epidemiology Collaboration (CKD-EPI) equation refit without adjustment for race Glucose [Mass/Vol] 103 mg/dL 82 - 115 mg/dL [facility] Interpretation and review of laboratory results Normal [facility] Potassium [Moles/Vol] 4.8 mmol/L 3.5 - 5.1 mmol/L [facility] Comment on above: Plasma potassium solange ues may be up to 0.5 mmol/L lower than serum values. Protein [Mass/Vol] 6.7 g/dL 6.4 - 8.3 g/dL [facility] Sodium [Moles/Vol] 139 mmol/L 136 - 145 mmol/L [facility] Urea nitrogen [Mass/Vol] 18 mg/dL 9 - 23 mg/dL [facility] D-DIMER,QUANTITATIVEon 01-04 D-DIMER, INNOVANCE 0.23 mg/L Normal <0.50 [facility] Comment on above: Result Comment: PREET Barber COMMENTS: [employer] D-Dimer values of <0.50 mg/L FEU can be used in combination with a pre-test probability model (e.g. Well's) to exclude pulmonary embolism (PE) disease, as well as an aid in the diagnosis of deep vein thrombosis (DVT). Performed By: #### L [id number] ####Poll Clerk: ZAIDA MORRISSEY ([phone])[facility] ([facility])[address] [place] [address] ED Nursing Noteon 01-04-2025 ED Nursing Note Pt complains of mid back pack and lower back pain x 6 weeks. Normal [facility] ED Provider Noteon ED Provider Note EMERGENCY DEPARTMENT ENCOUNTER Pt Name: Cortney Acosta Birthdate 1955 Date of evaluation: 01/04/2025 ED Provider: Fabiola Brito PA-C CHIEF COMPLAINT Chief Complaint Patient presents with Back Pain HISTORY OF PRESENT ILLNESS (Location/Symptom, Timing/Onset, Context/Setting, Quality, Duration, Modifying Factors, Severity) Note limiting factors. I wore appropriate PPE for the entirety of this encounter. HPI Cortney Acosta is a 69 y.o. male who presents to the emergency department his for evaluation of ongoing back pain. Patient states that he has a very longstanding history of chronic back pain, both in the thoracic and lumbar regions. Has been seen emergency department for this, as well as by orthopedics as an outpatient. Follows with a provider at the [facility] and is actually supposed to have an entire body bone scan performed here on 01-19. Reports he was told he has significant arthritis and bone spurs in his spine and shoulders. Patient presents today primarily complaining of pain in his upper thoracic spine, at the level of his shoulder blades. States it is bandlike across his back. Has been a constant pain for the last couple of months, and does not seem to have acutely worsened. No ripping or tearing type sensation into the back. No numbness, tingling, or weakness into the extremities. No associated chest pain, but he states that he feels like he is tense all the time and sometimes the pain feels like it does take his breath away. No lightheadedness or dizziness. No history of OH, DVT, or PE. No recent mobilizations, travel, or procedures. No known history of clotting disorder. Was seen for this last month because he was concerned he was having a heart attack, but states that his cardiac workup at that time was reassuring. Is primarily taking anti-inflammatories and meloxicam for his pain. No loss of bowel or bladder. No fecal or urinary retention. No saddle anesthesia. No history of IV drug use. No hardware placement within the spine. No history of surgeries within the abdomen. No abdominal pain. Nursing Notes were reviewed. Limitations to history: None Outside historians: None REVIEW OF SYSTEMS Review of Systems 14 systems reviewed, positives and pertinent negatives as per HPI. All other systems were reviewed and are negative. PAST MEDICAL HISTORY Medical History[1] SURGICAL HISTORY Surgical History[2] CURRENT MEDICATIONS Discharge Medication List as of 01/04/2025 2:31 PM CONTINUE these medications which have NOT CHANGED Details !! acetaminophen (Tylenol) 500 MG tablet Take 1,000 mg by mouth every 8 hours as needed for mild pain (1-3)., Historical Med busPIRone (Buspar) 7.5 MG tablet Take 1 tablet (7.5 mg) by mouth 2 times daily., Starting Di 01/01/2025, Normal losartan (Cozaar) 100 MG tablet Take 0.5 tablets (50 mg) by mouth Nightly., Starting 12/03/2024, No Print meloxicam (Mobic) 15 MG tablet TAKE 1 TABLET BY MOUTH EVERY MORNING WITH FOOD TO REDUCE SWELLING. DO NOT TAKE WITH OTHER NSAIDS (IBUPROFEN, ADVIL, MOTRIN, ALEVE,OR NAPROXEN), Starting Di 11/27/2024, Until 11/27/2025 at 2359, Normal rosuvastatin (Crestor) 5 MG tablet Take 1 tablet (5 mg) by mouth daily., Starting 12/30/2024, Until 06/28/2025, Normal !! - Potential duplicate medications found. Please discuss with provider. ALLERGIES Penicillins FAMILY HISTORY Family History[3] SOCIAL HISTORY Social History[4] SCREENINGS PHYSICAL EXAM ED Triage Vitals [01/04/25 1058] Temp Heart Rate Resp BP 36.7 ?C (98.1 ?F) 61 20 138/87 SpO2 Temp Source Heart Rate Source Patient Position 99 % Temporal Monitor Sitting BP Location FiO2 (%) Right arm -- Physical Exam Vitals and nursing note reviewed. Constitutional: General: He is not in acute distress. Appearance: He is well-developed. Comments: Pleasant. Ambulatory back from triage area without difficulty or deficit. Speaking comfortably in full sentences. HENT: Head: Normocephalic and atraumatic. Eyes: Extraocular Movements: Extraocular movements intact. Conjunctiva/sclera: Conjunctivae normal. Pupils: Pupils are equal, round, and reactive to light. Neck: Comments: Full range of motion without pain. No midline tenderness. Vasculature nontender. Cardiovascular: Rate and Rhythm: Normal rate and regular rhythm. Heart sounds: No murmur heard. Comments: Radial pulses 2+ and symmetric bilaterally. No murmurs rubs or gallops. Pulmonary: Effort: Pulmonary effort is normal. No respiratory distress. Breath sounds: Normal breath sounds. Abdominal: Palpations: Abdomen is soft. Tenderness: There is no abdominal tenderness. Comments: Soft and nontender without guarding or rebound. No palpable masses or hernias. Musculoskeletal: General: No swelling. Cervical back: Neck supple. Comments: L1-L2 inner thigh sensation intact L2 adduct thigh/cross legs 5/5 L3 ex (more content not included)... Normal [facility] Fibrin D-dimer FEU (PPP) [Ma ss/Vol]on 01-04-2025 Interpretation and review of laboratory results Normal [facility] D-Dimer values of <0.50 mg/L FEU can be used in combination with a pre-test probability model (e.g. Well's) to exclude pulmonary embolism (PE) disease, as well as an aid in the diagnosis of deep vein thrombosis (DVT). [facility] HIGH SENSITIVITY TROPONIN, S ERIAL BASELINEon 01-04-2025 TROPONIN HS SERIAL BASELINE <3 Normal <=35 [facility] Comment on above: Result Comment: In i ndividuals presenting with symptoms > 2h, a baseline troponin <= 5 ng/L suggests acute cardiac injury is unlikely and further serial testing is generally not indicated. Performed By: #### L [id number], [id number] ####Poll Clerk: ZAIDA MORRISSEY ([phone])[facility] (SBHL[facility])[address] HIGH SENSITIVITY TROPONIN, S ERIAL, SECOND TESTon 01-04-2025 2H TROPONIN HS (SERIAL 2ND TROPONIN) 3 ng/L Normal <=35 [facility] Comment on above: Result Comment: Delt a value was unable to be calculated as both baseline and serial troponin tests were below the level of quantitation. As both baseline and 2h troponin values are below the level of quantitation, acute cardiac injury is unlikely. Performed By: #### L [id number] #### Poll Clerk: ZAIDA MORRISSEY ([phone]) [facility] ([facility]) [address] [place] [address] Laboratory - Coagulationon 0 01-04-2025 Fibrin D-dimer FEU (PPP) [Mass/Vol] 0.23 mg/L NINF - 0.50 mg/L [facility] No Panel Informationon 01-04 2h Troponin HS (Serial 2nd Troponin) 3 ng/L NINF - 35 ng/L [facility] Comment on above: Delta value was unab le to be calculated as both baseline and serial troponin tests were below the level of quantitation. As both baseline and 2h troponin values are below the level of quantitation, acute cardiac injury is unlikely. Interpretation and review of laboratory results Normal [facility] Interpretation and review of laboratory results Normal [facility] Troponin HS Serial Baseline ng/L NINF - 35 ng/L [facility] Comment on above: In individuals prese nting with symptoms > 2h, a baseline troponin <= 5 ng/L suggests acute cardiac injury is unlikely and further serial testing is generally not indicated. [facility] 36on 01-01-2025 36 Refused, this was se nt in 2 days ago [facility] 36 Rx sent [facility] 36 Prescription Request : Last medication check: 12-11-24 Last physical exam: 12-11-24 Next scheduled appointment: 07-13-25 Last date of refill on this medication 12-30-24---just filled!! Normal [facility] 36 Prescription Request : Last medication check: 12-11-24 Last physical exam: 12-11-24 Next scheduled appointment: 07-13-25 Last date of refill on this medication 12-11-24 [facility] 36on 12-30-2024 36 Prescription Request : rosuvastatin (Crestor) 5 MG tablet Last medication check: 01/16/24 Last physical exam: 12/11/24 Next scheduled appointment: 07/13/25 Last date of refill on this medication 12/12/24 ( qty 90 refill 1) [facility] 36on 12-12-2024 36 Rx sent. Follow up a s scheduled. [facility] 37on 12-11-2024 37 Personalized Preventative Plan for Cortney Acosta - 12/11/2024 Medicare offers a range of preventative health benefits. Some of the tests and screenings are paid in full while others may be subject to a deductible, co-insurance, and / or copay. Some of these benefits include a comprehensive review of your medical history including lifestyle, illnesses that may run in your family, and various assessments and screenings as appropriate. After reviewing your medical record and screening and assessments performed today, your provider may have ordered immunizations, labs, imaging, and / or referrals for you. A list of these orders (if applicable) as well as your Preventative Care list are included within your After Visit Summary for your review. Other Preventative Recommendations: A preventive eye exam by an detective private eye is recommended every 1-2 years to screen for glaucoma, cataracts, macular degeneration, and other eye disorders. A preventive dental visit is recommended every 6 months. Try to get at least 150 minutes of exercise per week or 10,000 steps per day on a pedometer. You need 1200-1500mg of calcium and 2883-8914 international units of vitamin D per day. It is possible to meet your calcium requirement with diet alone, but a vitamin D supplement is usually necessary to meet this goal. When exposed to the sun, use a sunscreen that protects against both UVA and UVB radiation with an SPF of 30 or greater. Reapply every 2-3 hours or after sweating, drying off with a towel, or swimming. Always wear a seat belt when traveling in a car. Always wear a helmet when riding a bicycle or a motorcycle Normal [facility] Office Visiton 12-11-2024 Follow-up visit [id number] Cortney Acosta 1955 M Date Provider Department Center 12/11/2024 ILAN ALCALA [facility] Family History Problem Relation Age of Onset Emphysema Mother Cancer Father Family Status - Relation Status Age at Mother Father Level of Service:G0439 PA PPPS, SUBSEQ VISIT Reason for Visit and Comments: Medicare Annual Wellness Visit Initial [676] Normal [facility] Progress Noteon 12-11-2024 Progress Note Control unknown. He had stopped the rosuvastatin. Recheck lipids today. Continue low fat, low cholesterol diet. If elevated, consider restarting the rosuvastatin 5 mg daily [facility] Progress Note Controlled. Continue buspirone 7.5 mg twice daily Normal [facility] Progress Note Controlled, in offic e readings have been slightly elevated at 150/91, however home blood pressure readings are 120s/70s. continue losartan 50 mg daily. Continue to monitor home blood pressures. Follow up if readings at home equal to or greater than 140/90. Normal [facility] Progress Note Stable, continue meloxicam 15 mg daily [facility] Progress Note Stable. Follow up [facility] as directed. Normal [facility] Progress Note [facility] [place] [address] [facility] [address] [facility] [address] Dept: [phone] Dept Chief Complaint: Cortney Acosta is an 69 y.o. male here for an annual wellness visit. Assessment/Plan : Problem List Items Addressed This Visit Primary hypertension - Primary Controlled, in office readings have been slightly elevated at 150/91, however home blood pressure readings are 120s/70s. continue losartan 50 mg daily. Continue to monitor home blood pressures. Follow up if readings at home equal to or greater than 140/90. Anxiety Controlled. Continue buspirone 7.5 mg twice daily Relevant Medications busPIRone (Buspar) 7.5 MG tablet Hypercholesterolemia Control unknown. He had stopped the rosuvastatin. Recheck lipids today. Continue low fat, low cholesterol diet. If elevated, consider restarting the rosuvastatin 5 mg daily Relevant Orders Lipid panel Spinal stenosis of lumbosacral region Stable. Follow up with orthopedic as directed. Degenerative arthritis Stable, continue meloxicam 15 mg daily Other Visit Diagnoses Routine general medical examination at health care facility I have reviewed and reconciled the medication list with the patient today. Current Medications[1] Also reviewed during this visit: Hypertension-patient is taking losartan 50 mg daily, denies any adverse effects medication. His home blood pressure readings that he brought with him today over the past couple weeks range in the 120s over 70s. He previously was on the 100 mg of losartan but was having dizziness and lightheadedness so it was decreased to 50 mg. He does have some elevated blood pressure readings in the office but his home readings are always good. Hyperlipidemia-previous ly well-controlled on rosuvastatin 5 mg daily. Patient reports that he had stopped taking it after his last lipid panel as his cholesterol levels looked good. States he has been eating a low-fat low-cholesterol diet. Degenerative arthritis-reports he continues to have some back pain but overall it is much better since after his surgery. The meloxicam does seem to help significantly. He does still see orthopedics occasionally Continues to work 40+ hours per week at work, reports he is not ready to retire yet and recently made that decision. States he feels good about continuing to work at this time. The following health maintenance schedule was reviewed with the patient and provided in printed form in the after visit summary: Health Maintenance Topic Date Due Hepatitis C Screening Never done Diabetes Screening Never done DTaP/Tdap/Td Vaccines (1 - Tdap) Never done Pneumococcal Vaccine: 50+ Years (1 of 1 - PCV) Never done Zoster Vaccines (1 of 2) Never done Medicare Annual Wellness (AWV) 10/17/2024 COVID-19 Vaccine (2023- season) 2025 (Originally 03/23/2024) Influenza Vaccine (Season Ended) 2025 Depression Screening 12/03/2025 Lipid Panel 10/16/2028 Colorectal Cancer Screening 07/08/2029 RSV Immunization for Adults (1 - 1-dose 75+ series) 2032 RSV Immunization under 20 Months Aged Out HIB Vaccines Aged Out Hepatitis B Vaccines Aged Out IPV Vaccines Aged Out Hepatitis A Vaccines Aged Out Meningococcal Vaccine Aged Out Rotavirus Vaccines Aged Out HPV Vaccines Aged Out Meningococcal B Vaccine Aged Out MMR Vaccines Discontinued List of current healthcare providers: Patient Care Team: Anthony Chamorro MD as PCP - General Orders Placed This Encounter Procedures Lipid panel Standing Status: Future Number of Occurrences: 1 Expected Date: 12/11/2024 Expiration Date: 12/11/2025 Review of Systems Constitutional: Negative for activity change, chills, fatigue and fever. HENT: Negative. Eyes: Negative for visual disturbance. Respiratory: Negative. Cardiovascular: Negative. Gastrointestinal: Negative. Genitourinary: Negative for difficulty urinating. Musculoskeletal: Positive for back pain (chronic). Neurological: Negative. Psychiatric/Behavioral: Negative for decreased concentration and sleep disturbance. The patient is nervous/anxious. Physical Exam Vitals reviewed. Constitutional: General: He is not in acute distress. Appearance: Normal appearance. He is normal weight. He is not ill-appearing or toxic-appearing. HENT: Head: Normocephalic and atraumatic. Right Ear: Tympanic membrane, ear canal and external ear normal. There is no impacted cerumen. Left Ear: Tympanic membrane, ear canal and external ear normal. There is no impacted cerumen. Nose: Nose normal. No congestion or rhinorrhea. Mouth/Throat: Mouth: Mucous membranes are moist. Pharynx: Oropharynx is clear. No oropharyngeal exudate or posterior oropharyngeal erythema. Eyes: Conjunctiva/sclera: Conjunctivae normal. Pupils: Pupils are equal, round, and reactive to light. Neck: Vascular: No carotid bruit. Cardiov (more content not included)... Normal [facility] 36on 12-03-2024 36 Will see at 8 AM as scheduled. Normal [facility] 36 The patient stopped in the office stating his new BP med Losartan is causing him to be dizzy. He took 1/2 of one yesterday and it caused dizziness too and off balance. Please advice. Normal [facility] Office Visiton 12-03-2024 Follow-up visit [id number] Cortney Acosta 1955 M Date Provider Department Center 12/03/2024 [id number] [facility] Family History Problem Relation Age of Onset Emphysema Mother Cancer Father Family Status - Relation Status Age at Mother Father Level of Service:93236 PA OFFICE/OUTPATIENT ESTABLISHED MOD MDM 30 MIN Reason for Visit and Comments: ER Follow-up [831] - Pt has high blood pressure, Sunday ED visit, pressure and pain in left arm Normal [facility] Progress Noteon 12-03-2024 Progress Note 12/03/2024 Cortney Acosta (: 1955) is a 69 y.o. male , Established patient, here for evaluation of the following chief complaint(s): ER Follow-up (Pt has high blood pressure, Sunday ED visit, pressure and pain in left arm ) I obtained verbal consent from the patient and/or patient?s guardian to use ambient listening technology during this encounter before the ambient technology was engaged. Assessment/Plan 1. Chest pain, unspecified type - resolved - Recent ER visit (11/30/2024) for chest tightness and left arm pain - Cardiac workup negative (normal troponins and EKG) - Declines stress test for further evaluation at this time. Discussed signs and symptoms warranting follow up in the office- verbalized understanding. 2. Primary hypertension - losartan (Cozaar) 100 MG tablet; Take 0.5 tablets (50 mg) by mouth Nightly., Starting Sun12/03/2024, No Print - chronic stable - Patient reports dizziness with new blood pressure medication (losartan) - Advised to take medication at bedtime - Adjust dosage to 50mg (half tablet) of losartan at bedtime - Monitor blood pressure, ensure top number stays less than 140 and bottom number less than 90 - Follow up with Nicolasa in a week for physical and medication review 3. Hypercholesterolemia - Not currently on a lipid-lowering agent. Will plan on rechecking cholesterol levels on 12/11/2024 as scheduled and provide recommendations accordingly. 4. Anxiety - busPIRone (Buspar) 7.5 MG tablet; Take 1 tablet (7.5 mg) by mouth 2 times daily., Starting Sun12/03/2024, Normal - Chronic, not well controlled. - Prescribed Buspar 7.5mg PO BID - Advised it may take 2-4 weeks to see full benefit - Follow up with Nicolasa to assess efficacy - Information provided in AVS on new medication. I performed the above service AI scribed on my behalf, and I have reviewed and confirmed the accuracy and completeness of the medical documentation. Follow up in 8 days (on 12/11/2024) for Next scheduled follow-up. Subjective History of Present Illness Cortney Acosta, a 69-year-old male, presents for ER follow-up and concerns of dizziness with his new blood pressure medication (Losartan). He reports feeling dizzy within two to three hours of taking the medication, particularly when moving his head quickly. He has not taken the medication since yesterday. Cortney mentions his blood pressure readings were 121/74 and 127/77. Cortney also discusses a recent ER visit on November 30 for chest tightness and left arm pain. States he rode 40 miles on his bicycle the day before. Workup in the ER was unremarkable. Normal troponin levels and EKG. It was recommended he start on a daily low-dose aspirin and get an outpatient stress test ordered, however, he does not want to pursue the stress test at this time. Feels his symptoms were more musculoskeletal in nature and not related to his heart. Has hypercholesterolemia but has not been taking his rosuvastatin stating he is made some lifestyle changes (eating less cheese) and does not want to take the medication. Is scheduled for a physical and fasting blood work on 12/11/2024. Cortney expresses that he is starting to retire and finding it stressful, contrary to expectations. He mentions difficulty adjusting to having everything done around the house and limited activities. States all of these changes have contributed to his dieting and is requesting to start on a daily medication to better help manage this. Has never been on a daily maintenance medication before. Denies feeling down depressed or was. Review of Systems Respiratory: Negative for chest tightness and shortness of breath. Cardiovascular: Negative for chest pain. Psychiatric/Behavioral: Negative for dysphoric mood. The patient is nervous/anxious. Objective Vitals: 12/03/24 0746 BP: 128/85 BP Location: Left arm Patient Position: Sitting BP Cuff Size: Adult Pulse: 66 SpO2: 97% Weight: 148 lb 12.8 oz (67.5 kg) Body mass index is 24.76 kg/m?. Last 3 PHQ-2 Scores 12/03/2024 0749 11/28/2024 1105 Patient Health Questionnaire-2 Score: 0 0 Physical Exam Constitutional: General: He is not in acute distress. Appearance: He is not ill-appearing or diaphoretic. Neck: Vascular: No carotid bruit. Cardiovascular: Rate and Rhythm: Normal rate and regular rhythm. Pulses: Normal pulses. Heart sounds: Normal heart sounds. No murmur heard. No friction rub. Pulmonary: Effort: Pulmonary effort is normal. Breath sounds: Normal breath sounds. No wheezing, rhonchi or rales. Abdominal: General: Bowel sounds are normal. Palpations: Abdomen is soft. There is no mass. Tenderness: There is no abdominal tenderness. There is no guarding or rebound. Musculoskeletal: Cervical back: Neck supple. Skin: General: Skin is warm and dry. Coloration: Skin is not pale. Findings: No erythema or rash. Neurological: Mental Status: He is alert and oriented to person (more content not included)... Normal [facility] Progress Noteon 12-01-2024 Progress Note Chart reviewed of ED follow up Seen in [facility] ED on 11/30/24 Reason: arm pain-chest pain Discharge instructions: PATIENT REFERRED TO: Anthony Chamorro MD [address] [place] [address] Message: I am calling from Anthony Chamorro MD's office, following up after your recent ED visit. Please call the office at [phone] and we can schedule a follow up appointment..Electronic ally signed by Marilin Manuel LPN on 12/01/2024 at 2:54 PM Spoke to patient and he was at work,unable to talk and stated he will call the office later to schedule a follow up. If patient calls back, please assist with scheduling a ED follow up appointment. Normal [facility] CBC W Auto Differential pane l (Bld)on 11-30-2024 Basophils (Bld) [#/Vol] 0 10*3/uL 0.0 - 0.2 10*3/uL [facility] Basophils/100 WBC (Bld) 0.5 % 0.0 - 2.0 % [facility] Eosinophils (Bld) [#/Vol] 0 10*3/uL 0.0 - 0.5 10*3/uL [facility] Eosinophils/100 WBC (Bld) 0.5 % 0.0 - 6.0 % [facility] Erythrocyte distribution width (RBC) [Ratio] 13.1 % 11.5 - 15.0 % [facility] Hematocrit (Bld) [Volume fraction] 42.9 % 40.0 - 52.0 % [facility] Hemoglobin (Bld) [Mass/Vol] 14.7 g/dL 13.0 - 18.0 g/dL [facility] Immature granulocytes (Bld) [#/Vol] 0 10*3/uL NINF - 0.1 10*3/uL [facility] Immature granulocytes/100 WBC (Bld) 0.4 % 0.0 - 2.0 % [facility] Interpretation and review of laboratory results Abnormal [facility] Lymphocytes (Bld) [#/Vol] 1.5 10*3/uL 1.0 - 4.3 10*3/uL [facility] Lymphocytes/100 WBC (Bld) 18.3 % 15.0 - 45.0 % [facility] MCH (RBC) [Entitic mass] 30.7 pg 26.0 - 34.0 pg [facility] MCHC (RBC) [Mass/Vol] 34.3 % 30.5 - 36.0 % [facility] MCV (RBC) [Entitic vol] 89.6 fL 77.0 - 99.0 fL [facility] Monocytes (Bld) [#/Vol] 0.5 10*3/uL 0.0 - 0.9 10*3/uL [facility] Monocytes/100 WBC (Bld) 6.2 % 5.0 - 13.0 % [facility] Neutrophils (Bld) [#/Vol] 5.9 10*3/uL 1.8 - 7.5 10*3/uL [facility] Neutrophils/100 WBC (Bld) 74.1 % 38.0 - 82.0 % [facility] Nucleated RBC/100 WBC (Bld) [Ratio] 0 % [facility] Platelet mean volume (Bld) [Entitic vol] 8.9 fL Low 9.0 - 12.7 fL [facility] Comment on above: MPV is a calculated measurement using platelet volume ratio Platelets (Bld) [#/Vol] 347 10*3/uL 140 - 440 10*3/uL [facility] RBC (Bld) [#/Vol] 4.79 10*6/uL 4.40 - 5.9 0 10*6/uL [facility] WBC (Bld) [#/Vol] 7.9 10*3/uL 3.6 - 10.7 10*3/uL [facility] CBC WITH AUTO DIFFERENTIALon 11-30-2024 Basophils (Bld) [#/Vol] 0.0 10*3/uL Normal 0.0-0.2 [facility] Comment on above: Performed By: #### L [id number] ####Poll Clerk: LIU MATHEWS ([phone])[facility] ([facility])[address] [place] [address] [place] Basophils/100 WBC (Bld) 0.5 % Normal 0.0-2.0 [facility] Comment on above: Performed By: #### L [id number] ####Poll Clerk: LIU MATHEWS ([phone])[facility] ([facility])[address] [place] [address] [place] Eosinophils (Bld) [#/Vol] 0.0 10*3/uL Normal 0.0-0.5 [facility] Comment on above: Performed By: #### L [id number] ####Poll Clerk: LIU MATHEWS ([phone])[facility] S[facility] ([facility])[address] [place] [address] [place] Eosinophils/100 WBC (Bld) 0.5 % Normal 0.0-6.0 [facility] Comment on above: Performed By: #### L [id number] ####Poll Clerk: LIU MATHEWS ([phone])[facility] S[facility] ([facility])[address] [place] [address] [place] Erythrocyte distribution width (RBC) [Ratio] 13.1 % Normal 11.5-15.0 [facility] Comment on above: Performed By: #### L [id number] ####Poll Clerk: LIU MATHEWS ([phone])[facility] ([facility])[address] [place] [address] Hematocrit (Bld) [Volume fraction] 42.9 % Normal 40.0-52.0 [facility] Comment on above: Performed By: #### L [id number] ####Poll Clerk: LIU MATHEWS ([phone])[facility] ([facility])[address] [place] [address] Hemoglobin (Bld) [Mass/Vol] 14.7 g/dL Normal 13.0-18.0 [facility] Comment on above: Performed By: #### L [id number] ####Poll Clerk: LIU MATHEWS ([phone])[facility] ([facility])[address] [place] [address] IMMATURE GRANS % 0.4 % Normal 0.0-2.0 [facility] Comment on above: Performed By: #### L [id number] ####Poll Clerk: LIU MATHEWS ([phone])[facility] ([facility])[address] [place] [address] IMMATURE GRANS ABSOLUTE 0.0 10*3/uL Normal <0.1 [facility] Comment on above: Performed By: #### L [id number] ####Poll Clerk: LIU MATHEWS ([phone])[facility] ([facility])[address] [place] [address] Lymphocytes (Bld) [#/Vol] 1.5 10*3/uL Normal 1.0-4.3 [facility] Comment on above: Performed By: #### L [id number] ####Poll Clerk: LIU MATHEWS ([phone])[facility] ([facility])[address] [place] [address] [place] Lymphocytes/100 WBC (Bld) 18.3 % Normal 15.0-45.0 [facility] Comment on above: Performed By: #### L [id number] ####Poll Clerk: LIU MATHEWS ([phone])[facility] [facility] ([facility])[address] [place] [address] MCH (RBC) [Entitic mass] 30.7 pg Normal 26.0-34.0 [facility] Comment on above: Performed By: #### L [id number] ####Poll Clerk: LIU MATHEWS ([phone])[facility] ([facility])[address] [place] [address] MCHC 34.3 % Normal 30.5-36.0 [facility] Comment on above: Performed By: #### L [id number] ####Poll Clerk: LIU MATHEWS ([phone])[facility]ARE[facility] ([facility]RL[facility])[address] [place] [address] MCV (RBC) [Entitic vol] 89.6 fL Normal 77.0-99.0 S [facility] Comment on above: Performed By: #### L [id number] ####Poll Clerk: LIU MATHEWS ([phone])[facility]ARE[facility] ([facility])[address] [place] [address] Monocytes (Bld) [#/Vol] 0.5 10*3/uL Normal 0.0-0.9 [facility] Comment on above: Performed By: #### L [id number] ####Poll Clerk: LIU MATHEWS ([phone])[facility] (SWRLAB)[address] [place] [address] [place] Monocytes/100 WBC (Bld) 6.2 % Normal 5.0-13.0 S [facility] Comment on above: Performed By: #### L [id number] ####Poll Clerk: LIU MATHEWS ([phone])[facility] (SWRLAB)[address] [place] [address] NEUTROPHILS ABSOLUTE 5.9 10*3/uL Normal 1.8-7.5 [facility] Comment on above: Performed By: #### L [id number] ####Poll Clerk: LIU MATHEWS ([phone])[facility] (SWRLAB)[address] [place] [address] Neutrophils/100 WBC (Bld) 74.1 % Normal 38.0-82.0 [facility] Comment on above: Performed By: #### L [id number] ####Poll Clerk: LIU MATHEWS ([phone])[facility] (SWRLAB)[address] [place] [address] NRBC 0.0 /100 WBCs Normal 0.0-2.0 [facility] Comment on above: Performed By: #### L [id number] ####Poll Clerk: LIU MATHEWS ([phone])[facility] (SWRLAB)[address] [place] [address] Platelet mean volume (Bld) [Entitic vol] 8.9 fL Low 9.0-12.7 [facility] Comment on above: Result Comment: MPV is a calculated measurement using platelet volume ratio Performed By: #### L [id number] ####Poll Clerk: LIU MATHEWS ([phone])[facility] (SWRLAB)[address] [place] [address] [place] Platelets (Bld) [#/Vol] 347 10*3/uL Normal 140-440 [facility] Comment on above: Performed By: #### L [id number] ####Poll Clerk: LIU MATHEWS ([phone])[facility] (SWRLAB)[address] [place] [address] RBC (Bld) [#/Vol] 4.79 10*6/uL Normal 4.40-5.90 [facility] Comment on above: Performed By: #### L [id number] ####Poll Clerk: LIU MATHEWS ([phone])[facility] (SWRLAB)[address] WBC (Bld) [#/Vol] 7.9 10*3/uL Normal 3.6-10.7 [facility] Comment on above: Performed By: #### L [id number] ####Poll Clerk: LIU MATHEWS ([phone])[facility] SREEKANTH BACILIOAN (SWRLAB)[address] COMPREHENSIVE METABOLIC PANE Héctor 11-30-2024 Albumin [Mass/Vol] 4.0 g/dL Normal 3.4-4.8 [facility] Comment on above: Performed By: #### L [id number] #### Poll Clerk: ZAIDA MORRISSEY ([phone]) [facility] (SBHLAB) [address] ALP [Catalytic activity/Vol] 67 U/L Normal 40-150 [facility] Comment on above: Performed By: #### L [id number] #### Poll Clerk: ZAIDA MORRISSEY ([phone]) [facility] (HLAB) [address] ALT [Catalytic activity/Vol] 10 U/L Normal <40 [facility] Comment on above: Performed By: #### L [id number] #### Poll Clerk: ZAIDA MORRISSEY ([phone]) [facility] (SBHLAB) [address] Anion gap [Moles/Vol] 12 mmol/L Normal 3-13 [facility] Comment on above: Performed By: #### L [id number] #### Poll Clerk: ZAIDA MORRISSEY ([phone]) [facility] (SBHLAB) [address] AST [Catalytic activity/Vol] 19 U/L Normal <34 [facility] Comment on above: Performed By: #### L [id number] #### Poll Clerk: ZAIDA MORRISSEY ([phone]) [facility] (SB[facility]) [address] Bilirubin [Mass/Vol] 0.8 mg/dL Normal <1.2 [facility] Comment on above: Performed By: #### L [id number] #### Poll Clerk: ZAIDA MORRISSEY ([phone]) [facility] (SBHLAB) [address] Calcium [Mass/Vol] 9.4 mg/dL Normal 8.8-10.0 [facility] Comment on above: Performed By: #### L [id number] #### Poll Clerk: ZAIDA MORRISSEY ([phone]) [facility] (SBHLAB) [address] Chloride [Moles/Vol] 103 mmol/L Normal 98-107 [facility] Comment on above: Performed By: #### L [id number] #### Poll Clerk: ZAIDA MORRISSEY ([phone]) [facility] (SBHLAB) [address] CO2 [Moles/Vol] 24 mmol/L Normal 23-31 [facility] Comment on above: Performed By: #### L [id number] #### Poll Clerk: ZAIDA MORRISSEY ([phone]) [facility] (SBHL[facility]) [address] [place] [address] [place] Creatinine [Mass/Vol] 1.01 mg/dL Normal 0.72-1.25 [facility] Comment on above: Performed By: #### L [id number] #### Poll Clerk: ZAIDA MORRISSEY ([phone]) [facility] (SBHL[facility]) [address] [place] [address] [place] GLOMERULAR FILTRATION RATE ML/MIN/1.73 SQ M.PREDICTED 81.5 mL/min/1.73m*2 Normal >60.0 [facility] Comment on above: Result Comment: Calc ulation based on the Chronic Kidney Disease Epidemiology Collaboration (CKD-EPI) equation refit without adjustment for race Performed By: #### L [id number] #### Poll Clerk: ZAIDA MORRISSEY ([phone]) [facility] (SBHLAB) [address] Glucose [Mass/Vol] 100 mg/dL Normal 82-115 [facility] Comment on above: Performed By: #### L [id number] #### Poll Clerk: ZAIDA MORRISSEY ([phone]) [facility] (SBHLAB) [address] [place], [place] [id number] [place] [address] Potassium [Moles/Vol] 4.3 mmol/L Normal 3.5-5.1 [facility] Comment on above: Result Comment: [facility] potassium values may be up to 0.5 mmol/L lower than serum values. Performed By: #### L [id number] #### Poll Clerk: ZAIDA MORRISSEY ([phone]) [facility] (SBHLAB) [address] Protein [Mass/Vol] 7.5 g/dL Normal 6.4-8.3 [facility] Comment on above: Performed By: #### L [id number] #### Poll Clerk: ZAIDA MORRISSEY ([phone]) [facility] (HLAB) [address] Sodium [Moles/Vol] 139 mmol/L Normal 136-145 [facility] Comment on above: Performed By: #### L [id number] #### Poll Clerk: ZAIDA MORRISSEY ([phone]) [facility] (SBHLAB) [address] [place] [address] [place] Urea nitrogen [Mass/Vol] 19 mg/dL Normal 9-23 [facility] Comment on above: Performed By: #### L [id number] #### Poll Clerk: ZAIDA MORRISSEY ([phone]) [facility] (SBHLAB) [address] [place], [place] [id number] [place] [address] Comprehensive metabolic 1998 panelon 11-30-2024 Albumin [Mass/Vol] 4 g/dL 3.4 - 4.8 g/dL [facility] ALP [Catalytic activity/Vol] 67 U/L 40 - 150 U/L [facility] ALT [Catalytic activity/Vol] 10 U/L NINF - 40 U/L [facility] Anion gap [Moles/Vol] 12 mmol/L 3 - 13 mmol/L [facility] AST [Catalytic activity/Vol] 19 U/L [facility] - 34 U/L [facility] Bilirubin [Mass/Vol] 0.8 mg/dL NINF - 1.2 mg/dL [facility] Calcium [Mass/Vol] 9.4 mg/dL 8.8 - 10. 0 mg/dL [facility] Chloride [Moles/Vol] 103 mmol/L 98 - 10 7 mmol/L [facility] CO2 [Moles/Vol] 24 mmol/L 23 - 31 mmol/L [facility] Creatinine [Mass/Vol] 1.01 mg/dL 0.72 - 1.25 mg/dL [facility] GFR/1.73 sq M.predicted (S/P/Bld) [Vol rate/Area] 81.5 mL/min - PINF [facility] Comment on above: Calculation based on the Chronic Kidney Disease Epidemiology Collaboration (CKD-EPI) equation refit without adjustment for race Glucose [Mass/Vol] 100 mg/dL 82 - 115 mg/dL [facility] Potassium [Moles/Vol] 4.3 mmol/L 3.5 - 5.1 mmol/L [facility] Comment on above: Plasma potassium solange ues may be up to 0.5 mmol/L lower than serum values. Protein [Mass/Vol] 7.5 g/dL 6.4 - 8.3 g/dL [facility] Sodium [Moles/Vol] 139 mmol/L 136 - 145 mmol/L [facility] Urea nitrogen [Mass/Vol] 19 mg/dL 9 - 23 mg/dL [facility] ECG 12-LEADon 11-30-2024 ECG 12-LEAD IMPRESSION: Sinus rhythm EKG per my interpretation shows normal sinus rhythm at a rate of 57 with a normal axis. There was no acute ST elevation or ST depression. Intervals are within normal limits otherwise. There were no significant changes compared to prior EKG on file. Electronically Signed On 11-30-2024 12:54:44 EDT by Jayant Ng [facility] ED Provider Noteon ED Provider Note EMERGENCY DEPARTMENT ENCOUNTER Pt Name: Cortney Acosta Birthdate 1955 Date of evaluation: 11/30/2024 ED Provider: Jayant Ng MD CHIEF COMPLAINT Chief Complaint Patient presents with Arm Pain Left arm pain for a couple days Chest Pain Left sided chest pain for a couple days HISTORY OF PRESENT ILLNESS (Location/Symptom, Timing/Onset, Context/Setting, Quality, Duration, Modifying Factors, Severity) Note limiting factors. I wore appropriate PPE for the entirety of this encounter. HPI Cortney Acosta is a 69 y.o. who presents to the emergency department with chief complaint of tightness in his chest and left arm. The patient said he has had this on and off for the past few days. He says it comes on at random. It lasts only about a minute and then goes away. He is not actively having symptoms currently. He denies any trouble breathing. He denies any nausea or dizziness or diaphoresis. He is unaware of any cardiac history. He has never had a heart attack. No fevers or chills today although he had some chills yesterday. He has a slight headache. Vision normal. No cough or URI symptoms. No abdominal pain, vomiting or diarrhea. No urinary complaints. No new pain or swelling in his legs. No localizing numbness or weakness. No other associated complaints. Denies smoke, alcohol or drug use. He is unaware of any family history of cardiac disease. Nursing Notes were reviewed. Limitations to history: None Outside historians: Significant other REVIEW OF SYSTEMS Review of Systems Constitutional: Negative for chills and fever. HENT: Negative for sore throat. Eyes: Negative for visual disturbance. Respiratory: Negative for cough and shortness of breath. Cardiovascular: Positive for chest pain. Negative for leg swelling. Gastrointestinal: Negative for abdominal pain and vomiting. Genitourinary: Negative for dysuria. Musculoskeletal: Positive for myalgias. Negative for arthralgias and back pain. Skin: Negative for color change and rash. Neurological: Positive for headaches. Negative for weakness and numbness. All other systems reviewed and are negative. Pertinent positives and negatives as per HPI. PAST MEDICAL HISTORY Past Medical History: Diagnosis Date Arthritis Chronic back pain Chronic pain Degenerative joint disease of right hip Hypertension SURGICAL HISTORY Past Surgical History: Procedure Laterality Date BACK SURGERY CARPAL TUNNEL RELEASE Right 20 years ago COLONOSCOPY COLONOSCOPY TOTAL HIP ARTHROPLASTY Right 02/28/2022 RIGHT TOTAL HIP ARTHROPLASTY WITH DIRECT ANDTERIOR APPROACH CURRENT MEDICATIONS Previous Medications ACETAMINOPHEN (TYLENOL) 500 MG TABLET Take 1,000 mg by mouth every 8 hours as needed for mild pain (1-3). ALBUTEROL 108 (90 BASE) MCG/ACT INHALER Inhale 2 puffs every 4 hours as needed for wheezing. HYDROXYZINE HCL (ATARAX) 25 MG TABLET Take 1 tablet (25 mg) by mouth every 8 hours as needed for anxiety. LOSARTAN (COZAAR) 100 MG TABLET Take 1 tablet (100 mg) by mouth daily. MELOXICAM (MOBIC) 15 MG TABLET TAKE 1 TABLET BY MOUTH EVERY MORNING WITH FOOD TO REDUCE SWELLING. DO NOT TAKE WITH OTHER NSAIDS (IBUPROFEN, ADVIL, MOTRIN, ALEVE,OR NAPROXEN) ROSUVASTATIN (CRESTOR) 5 MG TABLET TAKE 1 TABLET BY MOUTH DAILY ALLERGIES Penicillins FAMILY HISTORY Family History Problem Relation Name Age of Onset Emphysema Mother Cancer Father SOCIAL HISTORY Social History Socioeconomic History Marital status: Tobacco Use Smoking status: Never Smokeless tobacco: Former Quit date: 12/2023 Vaping Use Vaping status: Never Used Substance and Sexual Activity Alcohol use: Not Currently Alcohol/week: 2.0 standard drinks of alcohol Types: 2 Standard drinks or equivalent per week Comment: Very occasional Drug use: No Social History Narrative Lives at home with - of 30 years Rebekah - 1 boy son previous-partner. 1 child from previous partner son- lives in [place] (somewhat estranged). 8 grandkids and 1 great. 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 Rebekah at home- good health- fibromylgia. Social Drivers of Health Financial Resource Strain: Low Risk (01/16/2024) Overall Financial Resource Strain (CARDIA) Difficulty of Paying Living Expenses: Not hard at all Food Insecurity: No Food Insecurity (01/16/2024) Hunger Vital Sign Worried About Running Out of Food in the Last Year: Never true Ran Out of Food in the Last Year: Never true Transportation Needs: No Transportation Needs (01/16/2024) PRAPARE - Transportation Lack of Transportation (Medical): No Lack of Transportation (Non-Medical): No Physical Activity: Sufficiently Active (01/16/2024) Exercise Vital Sign Days of Exercise per Week: 3 days Minutes of Exercise per Session: 150+ min Stress: No Stress Concern Present (01/16/2024) [employer] - Occupational Stress Questionnaire Feeling of Stress : Not (more content not included)... Normal [facility] HIGH SENSITIVITY TROPONIN, S ERIAL BASELINEon 11-30-2024 TROPONIN HS SERIAL BASELINE <3 Normal <=35 [facility] Comment on above: Result Comment: In i ndividuals presenting with symptoms > 2h, a baseline troponin <= 5 ng/L suggests acute cardiac injury is unlikely and further serial testing is generally not indicated. Performed By: #### L [id number] #### Poll Clerk: ZAIDA MORRISSEY ([phone]) [facility] ([address] HIGH SENSITIVITY TROPONIN, S ERIAL, SECOND TESTon 11-30-2024 2H TROPONIN HS (SERIAL 2ND TROPONIN) <3 Normal <=35 [facility] Comment on above: Result Comment: 2h t roponin (2nd troponin) samples collected between 1h 40 min and 2h and 20 min of the baseline collection time can be utilized to interpret delta troponins as per [facility] algorithms. Samples collected outside this timeframe need to be interpreted clinically. Delta value was unable to be calculated as both baseline and serial troponin tests were below the level of quantitation. As both baseline and 2h troponin values are below the level of quantitation, acute cardiac injury is unlikely. Performed By: #### L [id number] ####Poll Clerk: LIU MATHEWS ([phone])[facility] ([id number] Laboratory - Chemistry and C hemistry - challengeon 11-30-2024 Magnesium [Mass/Vol] 1.9 mg/dL 1.6 - 2 .6 mg/dL [facility] MAGNESIUMon 11-30-2024 Magnesium [Mass/Vol] 1.9 mg/dL Normal 1.6-2.6 [facility] Comment on above: Result Comment: ORDE R COMMENTS: Higher values can be expected in females during menses. Performed By: #### L [id number] #### Poll Clerk: ZAIDA MORRISSEY ([phone]) [facility] (SBHLAB) [address] [place] [id number] [facility] Magnesium [Mass/Vol]on 11-30 Higher values can be expected in females during menses. [facility] No Panel Informationon 11-30 2h Troponin HS (Serial 2nd Troponin) ng/L NINF - 35 ng/L [facility] Comment on above: 2h troponin (2nd tro ponin) samples collected between 1h 40 min and 2h and 20 min of the baseline collection time can be utilized to interpret delta troponins as per [facility] algorithms. Samples collected outside this timeframe need to be interpreted clinically. Delta value was unable to be calculated as both baseline and serial troponin tests were below the level of quantitation. As both baseline and 2h troponin values are below the level of quantitation, acute cardiac injury is unlikely. Interpretation and review of laboratory results Normal [facility] Interpretation and review of laboratory results Normal [facility] Troponin HS Serial Baseline ng/L NINF - 35 ng/L [facility] Comment on above: In individuals prese nting with symptoms > 2h, a baseline troponin <= 5 ng/L suggests acute cardiac injury is unlikely and further serial testing is generally not indicated. [facility] Interpretation and review of laboratory results Normal [facility] P [place] 72 degrees [facility] PA Interval 147 ms [facility] QRS [place] 26 degrees [facility] QRSD Interval 90 ms [facility] QT Interval 399 ms [facility] QTC Interval 390 ms [facility] T Wave [place] 43 degrees [facility] Sinus rhythm EKG per my interpretation shows normal sinus rhythm at a rate of 57 with a normal axis. There was no acute ST elevation or ST depression. Intervals are within normal limits otherwise. There were no significant changes compared to prior EKG on file. Electronically Signed On 11-30-2024 12:54:44 EDT by Jayant Ramsey MD - 11/30/2024 IMPRESSION: Sinus rhythm EKG per my interpretation shows normal sinus rhythm at a rate of 57 with a normal axis. There was no acute ST elevation or ST depression. Intervals are within normal limits otherwise. There were no significant changes compared to prior EKG on file. Electronically Signed On 11-30-2024 12:54:44 EDT by Jayant Ng [facility] Health Vital signson 11-30-2024 Heart rate 57 /min bpm [facility] XR Chest Single viewon 11-30 No acute radiographic abnormality. Report Dictated on Electronically Signed By: Dia Fritz DO Electronically Signed Date/Time: 11/30/2024 1:30 PM EDT [facility] Patient Name: CORTNEY ACOSTA : 1955 Exam Date/Time: 11/30/2024 12:58 Procedure: XR CHEST 1 VIEW Ordering Provider: NG TARAS Reason For Exam: CHEST PAIN; Chest Pain CHEST X-RAY ONE VIEW: CLINICAL INDICATION: Chest pain TECHNIQUE: AP erect portable COMPARISON: Chest x-ray 08/21/2024, 02/23/2022, 05/05/2019 FINDINGS: Lines, tubes, and devices: Monitoring leads overlie the chest. Lungs: No focal consolidation, vascular congestion, pleural effusion, or pneumothorax. Calcified 4 mm nodule at the right lung base. Cardiomediastinal structures: Stable. Other: Degenerative changes within the shoulders and spine. [facility] Dia Fritz DO - 11/30/2024 Patient Name: CORTNEY ACOSTA : 1955 Exam Date/Time: 11/30/2024 12:58 Procedure: XR CHEST 1 VIEW Ordering Provider: NG TARAS Reason For Exam: CHEST PAIN; Chest Pain CHEST X-RAY ONE VIEW: CLINICAL INDICATION: Chest pain TECHNIQUE: AP erect portable COMPARISON: Chest x-ray 08/21/2024, 02/23/2022, 05/05/2019 FINDINGS: Lines, tubes, and devices: Monitoring leads overlie the chest. Lungs: No focal consolidation, vascular congestion, pleural effusion, or pneumothorax. Calcified 4 mm nodule at the right lung base. Cardiomediastinal structures: Stable. Other: Degenerative changes within the shoulders and spine. IMPRESSION: No acute radiographic abnormality. Report Dictated on Electronically Signed By: Dia Fritz DO Electronically Signed Date/Time: 11/30/2024 1:30 PM EDT [facility] Radiology Study observation (narrative) Chastity diez XR Chest Single viewOrdered By: Dia Fritz on 11-30-2024 [facility] Work Phone: 36on 11-28-2024 36 Patient notified. Normal [facility] 36 Blood pressure readi ngs are high. Recommend he resume taking his losartan and we can check his blood pressure again at his upcoming appointment on 12/11/2024 with Nicolasa. I refilled the losartan to the [facility] in [place] for him. Normal [facility] 36 Patient came in the office for a Nurse Visit Blood Pressure check today. Identified by name and date of . The patient sat for 10 minutes prior to having their Blood Pressure taken. He Stated he was at his back doctor at [facility] and they advised him to come over to his PCP to check his blood pressure. He is NOT taking his losartan, he stated someone told him to stop it but do not see it documented any where in his most recent visits. He does not have any medication left at home either. Pharmacy verified. Patient educated on proper way to check their blood pressure's at home. Education also included in patient AVS for reference. Scheduled patient in 2 weeks for his AWV/fasting labs/ and blood pressure check. Patient was given a blood pressure log and advised to keep track of his blood pressures at home and bring into office in 2 weeks to appointment. 1st Blood Pressure- 175/93 HR-58 2nd Blood Pressure- 169/87 HR- 58 Advised patient will Call him at this number [phone] [facility] Progress Noteon 11-28-2024 Progress Note Patient came in the office for a Nurse Visit Blood Pressure check today. Identified by name and date of . The patient sat for 10 minutes prior to having their Blood Pressure taken. He Stated he was at his back doctor at [facility] and they advised him to come over to his PCP to check his blood pressure. He is NOT taking his losartan, he stated someone told him to stop it but do not see it documented any where in his most recent visits. He does not have any medication left at home either. Pharmacy verified. Patient educated on proper way to check their blood pressure's at home. Education also included in patient AVS for reference. Scheduled patient in 2 weeks for his AWV/fasting labs/ and blood pressure check. Patient was given a blood pressure log and advised to keep track of his blood pressures at home and bring into office in 2 weeks to appointment. 1st Blood Pressure- 175/93 HR-58 2nd Blood Pressure- 169/87 HR- 58 Advised patient will Call him at this number [phone] [facility] 36on 11-27-2024 36 Pt notified [facility] 36 Rx sent [facility] 36 Name of caller: cortney Contact phone number: [phone] Relationship to Patient: patient Provider: Dr. Chamorro Practice: [facility] Chief Complaint/Reason for Call: pt called in, request to be put back on meloxicam, does not like celebrex and some of the side effects from it, please call an advise Best time of day caller can be reached: AM Patient advised that office/PCP has 24-48 business hours to return their call: Yes [facility] Progress Noteon 08-25-2024 Progress Note Chart reviewed of ED follow up [facility] ED [facility] 08/21[facility]24 Reason: Shortness of Breath Flu Symptoms Discharge instructions: PATIENT REFERRED TO: Anthony Chamorro MD [address] [place] [address], [address] [facility] [address] I work with Anthony Chamorro MD's office. We received notice you were in the ED recently and wanted to ask some questions to see how you are doing. This should only take a few minutes. According to ER notes you were there for Shortness of Breath Flu Symptoms . Is that correct?Yes How are your symptoms now? better - Patient states he is back to work and only feels fatigued. He is no coughing but is using inhaler as instructed. Education given on diet and fluids and to rest as much as possible. Any questions about the instructions the emergency department gave you?No Have you picked up the medication prescribed by ED and taking as prescribed? yes Are there any other concerns I can help you with today?No That's all the questions I had about your ED visit, but while I am reviewing the chart I noticed: Your last BP in the chart was 102/70. Confirm upcoming appointments: Confirmed upcoming appointments with patient. That's all I have for today. Thank you for choosing [facility], always remember we have same day or telehealth visits available. We encourage you to call the office if sudden health changes occur before going to ED. We have nurses available 12/02 available to help. [facility] 36on 08-21-2024 36 S: Patient spoke wit h CAC nurse regarding had tested for flu A last week, still has cough, headache, feels miserable B: Onset of symptoms/concern 1 week ago, Sunday A: Seen on 08/15, headache, stomach ache, decreased appetite, weakness, body aches, states fever on and off, chills, heaviness on chest from coughing. States symptoms remain the same with no improvement after Tamiflu. Clear to green mucous he is coughing up. Denies: chest pain, difficulty breathing, sore throat, earache R: Patient scheduled this afternoon 08/21 at 3:40p with Aristeo Tariq. Patient advised to wear mask to appointment. Patient understands care advice. No further needs at this time. Patient instructed to call back with new or worsening symptoms. Reason for Disposition [1] Probable mild influenza (no fever) or a common cold, with no complications AND [2] NOT HIGH RISK Protocols used: Influenza (Flu) - Wgygfyhy-AHWEN-MT [facility] CBC W Auto Differential pane l (Bld)on 08-21-2024 Basophils (Bld) [#/Vol] 0 10*3/uL 0.0 - 0.2 10*3/uL [facility] Basophils/100 WBC (Bld) 0.1 % 0.0 - 2.0 % [facility] Eosinophils (Bld) [#/Vol] 0 10*3/uL 0.0 - 0.5 10*3/uL [facility] Eosinophils/100 WBC (Bld) 0.3 % 0.0 - 6.0 % [facility] Erythrocyte distribution width (RBC) [Ratio] 12.5 % 11.5 - 15.0 % [facility] Hematocrit (Bld) [Volume fraction] 41.6 % 40.0 - 52.0 % [facility] Hemoglobin (Bld) [Mass/Vol] 14.1 g/dL 13.0 - 18.0 g/dL [facility] Immature granulocytes (Bld) [#/Vol] 0 10*3/uL NINF - 0.1 10*3/uL [facility] Immature granulocytes/100 WBC (Bld) 0.5 % 0.0 - 2.0 % [facility] Interpretation and review of laboratory results Abnormal [facility] Lymphocytes (Bld) [#/Vol] 2 10*3/uL 1.0 - 4.3 10*3/uL [facility] Lymphocytes/100 WBC (Bld) 25.3 % 15.0 - 45.0 % [facility] MCH (RBC) [Entitic mass] 29.8 pg 26.0 - 34.0 pg [facility] MCHC (RBC) [Mass/Vol] 33.9 % 30.5 - 36.0 % [facility] MCV (RBC) [Entitic vol] 87.9 fL 77.0 - 99.0 fL [facility] Monocytes (Bld) [#/Vol] 0.4 10*3/uL 0.0 - 0.9 10*3/uL [facility] Monocytes/100 WBC (Bld) 5.4 % 5.0 - 13.0 % [facility] Neutrophils (Bld) [#/Vol] 5.4 10*3/uL 1.8 - 7.5 10*3/uL [facility] Neutrophils/100 WBC (Bld) 68.4 % 38.0 - 82.0 % [facility] Nucleated RBC/100 WBC (Bld) [Ratio] 0 % [facility] Platelet mean volume (Bld) [Entitic vol] 8.4 fL Low 9.0 - 12.7 fL [facility] Platelets (Bld) [#/Vol] 421 10*3/uL 140 - 440 10*3/uL [facility] RBC (Bld) [#/Vol] 4.73 10*6/uL 4.40 - 5.9 0 10*6/uL [facility] WBC (Bld) [#/Vol] 7.8 10*3/uL 3.6 - 10.7 10*3/uL [facility] CBC WITH AUTO DIFFERENTIALon 08-21-2024 Basophils (Bld) [#/Vol] 0.0 10*3/uL Normal 0.0-0.2 [facility] Comment on above: Performed By: #### L [id number] ####Poll Clerk: ZAIDA MORRISSEY ([phone])[facility] (SB[facility])[address] Basophils/100 WBC (Bld) 0.1 % Normal 0.0-2.0 [facility] Comment on above: Performed By: #### L [id number] ####Poll Clerk: ZAIDA MORRISSEY ([phone])[facility] (SBHL[facility])[address] Eosinophils (Bld) [#/Vol] 0.0 10*3/uL Normal 0.0-0.5 [facility] Comment on above: Performed By: #### L [id number] ####Poll Clerk: ZAIDA MORRISSEY ([phone])[facility] ([facility])[address] Eosinophils/100 WBC (Bld) 0.3 % Normal 0.0-6.0 [facility] Comment on above: Performed By: #### L [id number] ####Poll Clerk: ZAIDA MORRISSEY ([phone])[facility] (SBHL[facility])[address] [place] [address] Erythrocyte distribution width (RBC) [Ratio] 12.5 % Normal 11.5-15.0 [facility] Comment on above: Performed By: #### L [id number] ####Poll Clerk: ZAIDA MORRISSEY ([phone])[facility] (SB[facility])[address] [place] [address] Hematocrit (Bld) [Volume fraction] 41.6 % Normal 40.0-52.0 [facility] Comment on above: Performed By: #### L [id number] ####Poll Clerk: ZAIDA MORRISSEY ([phone])[facility] ([facility])[address] [place] [address] Hemoglobin (Bld) [Mass/Vol] 14.1 g/dL Normal 13.0-18.0 [facility] Comment on above: Performed By: #### L [id number] ####Poll Clerk: ZAIDA MORRISSEY ([phone])[facility] (SBHL[facility])[address] [place] [address] IMMATURE GRANS % 0.5 % Normal 0.0-2.0 [facility] Comment on above: Performed By: #### L [id number] ####Poll Clerk: ZAIDA MORRISSEY ([phone])[facility] (SB[facility])[address] IMMATURE GRANS ABSOLUTE 0.0 10*3/uL Normal <0.1 [facility] Comment on above: Performed By: #### L [id number] ####Poll Clerk: ZAIDA MORRISSEY ([phone])[facility] (SB[facility])[address] [place] [address] Lymphocytes (Bld) [#/Vol] 2.0 10*3/uL Normal 1.0-4.3 [facility] Comment on above: Performed By: #### L [id number] ####Poll Clerk: ZAIDA MORRISSEY ([phone])[facility] [place] (SB[facility])[address] [place] [address] Lymphocytes/100 WBC (Bld) 25.3 % Normal 15.0-45.0 [facility] Comment on above: Performed By: #### L [id number] ####Poll Clerk: ZAIDA MORRISSEY ([phone])[facility] (SB[facility])[address] [place] [address] MCH (RBC) [Entitic mass] 29.8 pg Normal 26.0-34.0 [facility] Comment on above: Performed By: #### L [id number] ####Poll Clerk: ZAIDA MORRISSEY ([phone])[facility] (SBHLAB)[address] [place] [address] MCHC 33.9 % Normal 30.5-36.0 [facility] Comment on above: Performed By: #### L [id number] ####Poll Clerk: ZAIDA MORRISSEY ([phone])[facility] ([facility])[address] MCV (RBC) [Entitic vol] 87.9 fL Normal 77.0-99.0 [facility] Comment on above: Performed By: #### L [id number] ####Poll Clerk: ZAIDA MORRISSEY ([phone])[facility] [place] ([facility])[address] Monocytes (Bld) [#/Vol] 0.4 10*3/uL Normal 0.0-0.9 [facility] Comment on above: Performed By: #### L [id number] ####Poll Clerk: ZAIDA MORRISSEY ([phone])[facility] [place] ([facility])[address] Monocytes/100 WBC (Bld) 5.4 % Normal 5.0-13.0 [facility] Comment on above: Performed By: #### L [id number] ####Poll Clerk: ZAIDA MORRISSEY ([phone])[facility] [place] ([facility])[address] NEUTROPHILS ABSOLUTE 5.4 10*3/uL Normal 1.8-7.5 [facility] Comment on above: Performed By: #### L [id number] ####Poll Clerk: ZAIDA MORRISSEY ([phone])[facility] [place] ([facility])[address] Neutrophils/100 WBC (Bld) 68.4 % Normal 38.0-82.0 [facility] Comment on above: Performed By: #### L [id number] ####Poll Clerk: ZAIDA MORRISSEY ([phone])[facility] [place] ([facility])[address] NRBC 0.0 /100 WBCs Normal 0.0-2.0 [facility] Comment on above: Performed By: #### L [id number] ####Poll Clerk: ZAIDA MORRISSEY ([phone])[facility]CAREEnrique [facility]ADV[facility] (SBHLAB)[address] Platelet mean volume (Bld) [Entitic vol] 8.4 fL Low 9.0-12.7 [facility] Comment on above: Performed By: #### L [id number] ####Poll Clerk: ZAIDA MORRISSEY ([phone])[facility]AREEnrique [facility]AD[facility] (SB[facility])[address] Platelets (Bld) [#/Vol] 421 10*3/uL Normal 140-440 [facility] Comment on above: Performed By: #### L [id number] ####Poll Clerk: ZAIDA MORRISSEY ([phone])[facility] (SB[facility])[address] [place] [address] RBC (Bld) [#/Vol] 4.73 10*6/uL Normal 4.40-5.90 [facility] Comment on above: Performed By: #### L [id number] ####Poll Clerk: ZAIDA MORRISSEY ([phone])[facility] (SB[facility])[address] [place] [address] WBC (Bld) [#/Vol] 7.8 10*3/uL Normal 3.6-10.7 [facility] Comment on above: Performed By: #### L [id number] ####Poll Clerk: ZAIDA MORRISSEY ([phone])[facility]CAREEn[facility] (SB[facility])[address] [place] [address] COMPREHENSIVE METABOLIC PANE Héctor 08-21-2024 Albumin [Mass/Vol] 3.7 g/dL Normal 3.4-4.8 [facility] Comment on above: Performed By: #### L AB99, LAB17 ####Poll Clerk: ZAIDA MORRISSEY ([phone])[facility] ([facility])[address] ALP [Catalytic activity/Vol] 66 U/L Normal 40-150 [facility] Comment on above: Performed By: #### L AB99, LAB17 ####Poll Clerk: ZAIDA MORRISSEY ([phone])[facility] [place] ([facility])[address] ALT [Catalytic activity/Vol] 46 U/L High <40 [facility] Comment on above: Performed By: #### L AB99, LAB17 ####Poll Clerk: ZAIDA MORRISSEY ([phone])[facility] [place] ([facility])[address] Anion gap [Moles/Vol] 9 mmol/L Normal 3-13 [facility] Comment on above: Performed By: #### L AB99, LAB17 ####Poll Clerk: ZAIDA MORRISSEY ([phone])[facility] ([facility])[address] AST [Catalytic activity/Vol] 38 U/L High <34 [facility] Comment on above: Performed By: #### L AB99, LAB17 ####Poll Clerk: ZAIDA MORRISSEY ([phone])[facility] [place] ([facility])[address] Bilirubin [Mass/Vol] 0.4 mg/dL Normal <1.2 [facility] Comment on above: Performed By: #### L AB99, LAB17 ####Poll Clerk: ZAIDA MORRISSEY ([phone])[facility] [place] ([facility])[address] [place] [address] [place] Calcium [Mass/Vol] 9.3 mg/dL Normal 8.8-10.0 [facility] Comment on above: Performed By: #### L AB99, LAB17 ####Poll Clerk: ZAIDA MORRISSEY ([phone])[facility] [place] ([facility])[address] Chloride [Moles/Vol] 104 mmol/L Normal 98-107 [facility] Comment on above: Performed By: #### L AB99, LAB17 ####Poll Clerk: ZAIDA MORRISSEY ([phone])[facility]ALTHCAREEn[facility] [place] (SBHLAB)[address] CO2 [Moles/Vol] 27 mmol/L Normal 23-31 [facility] Comment on above: Performed By: #### L AB99, LAB17 ####Poll Clerk: ZAIDA MORRISSEY ([phone])[facility] ([facility])[address] Creatinine [Mass/Vol] 0.83 mg/dL Normal 0.72-1.25 [facility] Comment on above: Performed By: #### L AB99, LAB17 ####Poll Clerk: ZAIDA MORRISSEY ([phone])[facility] (HLAB)[address] [place] [address] GLOMERULAR FILTRATION RATE ML/MIN/1.73 SQ M.PREDICTED >90.0 Normal >60.0 [facility] Comment on above: Result Comment: Calc ulation based on the Chronic Kidney Disease Epidemiology Collaboration (CKD-EPI) equation refit without adjustment for race Performed By: #### L ASHLEE, LAB17 ####Poll Clerk: ZAIDA MORRISSEY ([phone])[facility] (HLAB)[address] Glucose [Mass/Vol] 107 mg/dL Normal 82-115 [facility] Comment on above: Performed By: #### L AB99, LAB17 ####Poll Clerk: ZAIDA MORRISSEY ([phone])[facility] (SBHLAB)[address] [place] [address] [place] Potassium [Moles/Vol] 4.2 mmol/L Normal 3.5-5.1 [facility] Comment on above: Result Comment: [facility] potassium values may be up to 0.5 mmol/L lower than serum values. Performed By: #### L AB99, LAB17 ####Poll Clerk: ZAIDA MORRISSEY ([phone])[facility] ([facility])[address] Protein [Mass/Vol] 7.4 g/dL Normal 6.4-8.3 [facility] Comment on above: Performed By: #### L AB99, LAB17 ####Poll Clerk: ZAIDA MORRISSEY ([phone])[facility]CARE[facility] (SB[facility])[address] Sodium [Moles/Vol] 140 mmol/L Normal 136-145 [facility] Comment on above: Performed By: #### L AB99, LAB17 ####Poll Clerk: ZAIDA MORRISSEY ([phone])[facility]ALTHCAREEn[facility] (SB[facility])[address] Urea nitrogen [Mass/Vol] 11 mg/dL Normal 9-23 [facility] Comment on above: Performed By: #### L AB99, LAB17 ####Poll Clerk: ZAIDA MORRISSEY ([phone])[facility]ARE[facility] ([facility])[address] Comprehensive metabolic 1998 panelon 08-21-2024 Albumin [Mass/Vol] 3.7 g/dL 3.4 - 4.8 g/dL [facility] ALP [Catalytic activity/Vol] 66 U/L 40 - 150 U/L [facility] ALT [Catalytic activity/Vol] 46 U/L High NINF - 40 U/L [facility] Anion gap [Moles/Vol] 9 mmol/L 3 - 13 mmol/L [facility] AST [Catalytic activity/Vol] 38 U/L High NINF - 34 U/L [facility] Bilirubin [Mass/Vol] 0.4 mg/dL NINF - 1.2 mg/dL [facility] Calcium [Mass/Vol] 9.3 mg/dL 8.8 - 10. 0 mg/dL [facility] Chloride [Moles/Vol] 104 mmol/L 98 - 10 7 mmol/L [facility] CO2 [Moles/Vol] 27 mmol/L 23 - 31 mmol/L [facility] Creatinine [Mass/Vol] 0.83 mg/dL 0.72 - 1.25 mg/dL [facility] GFR/1.73 sq M.predicted (S/P/Bld) [Vol rate/Area] - PINF [facility] Comment on above: Calculation based on the Chronic Kidney Disease Epidemiology Collaboration (CKD-EPI) equation refit without adjustment for race Glucose [Mass/Vol] 107 mg/dL 82 - 115 mg/dL [facility] Interpretation and review of laboratory results Abnormal [facility] Potassium [Moles/Vol] 4.2 mmol/L 3.5 - 5.1 mmol/L [facility] Comment on above: Plasma potassium solange ues may be up to 0.5 mmol/L lower than serum values. Protein [Mass/Vol] 7.4 g/dL 6.4 - 8.3 g/dL [facility] Sodium [Moles/Vol] 140 mmol/L 136 - 145 mmol/L [facility] Urea nitrogen [Mass/Vol] 11 mg/dL 9 - 23 mg/dL [facility] ED Provider Noteon ED Provider Note [facility] ED EMERGENCY DEPARTMENT ENCOUNTER Pt Name: Cortney Acosta Birthdate 1955 Date of evaluation: 08/21/2024 Provider: Oscar Morelos MD CHIEF COMPLAINT Chief Complaint Patient presents with Shortness of Breath Pt arrives from home for shortness of breath and flu like symptoms. Pt states he was recently seen in his PCP office where he tested positive for influenza A. Pt endorses pain to his R rib cage with coughing. Flu Symptoms HISTORY OF PRESENT ILLNESS (Location/Symptom, Timing/Onset,Context/Se tting, Quality, Duration, Modifying Factors, Severity) Note limiting factors. Cortney Acosta is a 69 y.o. male who presents to the emergency department patient presents with shortness of breath and fatigue. He has right flank pain but that is been a chronic problem. Says it hurts when he coughs now. Diagnosed with influenza about a week ago. Just finished recent steroids and Tamiflu. Says he feels weak and fatigued. Patient does have a history of smoking but currently does not smoke. He says he feels like he has decreased appetite. HPI Historian is the patient Nurse's notes for past medical history, surgical history, social history were reviewed. Medications and allergies reviewed. PAST MEDICAL HISTORY Past Medical History: Diagnosis Date Arthritis Chronic back pain Chronic pain Degenerative joint disease of right hip Hypertension SURGICALHISTORY Past Surgical History: Procedure Laterality Date CARPAL TUNNEL RELEASE Right 20 years ago COLONOSCOPY COLONOSCOPY TOTAL HIP ARTHROPLASTY Right 02/28/2022 RIGHT TOTAL HIP ARTHROPLASTY WITH DIRECT ANDTERIOR APPROACH CURRENT MEDICATIONS Previous Medications CELECOXIB (CELEBREX) 200 MG CAPSULE Take 1 capsule (200 mg) by mouth 2 times daily. HYDROXYZINE HCL (ATARAX) 25 MG TABLET Take 1 tablet (25 mg) by mouth every 8 hours as needed for anxiety. LOSARTAN (COZAAR) 100 MG TABLET TAKE 1 TABLET BY MOUTH DAILY ROSUVASTATIN (CRESTOR) 5 MG TABLET TAKE 1 TABLET BY MOUTH DAILY Penicillins FAMILY HISTORY Family History Problem Relation Name Age of Onset Emphysema Mother Cancer Father SOCIAL HISTORY Social History Socioeconomic History Marital status: Tobacco Use Smoking status: Never Smokeless tobacco: Former Quit date: 12/2023 Vaping Use Vaping status: Never Used Substance and Sexual Activity Alcohol use: Not Currently Alcohol/week: 2.0 standard drinks of alcohol Types: 2 Standard drinks or equivalent per week Comment: Very occasional Drug use: No Social History Narrative Lives at home with - of 30 years Rebekah - 1 boy son previous-partner. 1 child from previous partner son- lives in [place] (somewhat estranged). 8 grandkids and 1 great. 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 Rebekah at home- good health- fibromylgia. Social Drivers of Health Financial Resource Strain: Low Risk (01/16/2024) Overall Financial Resource Strain (CARDIA) Difficulty of Paying Living Expenses: Not hard at all Food Insecurity: No Food Insecurity (01/16/2024) Hunger Vital Sign Worried About Running Out of Food in the Last Year: Never true Ran Out of Food in the Last Year: Never true Transportation Needs: No Transportation Needs (01/16/2024) PRAPARE - Transportation Lack of Transportation (Medical): No Lack of Transportation (Non-Medical): No Physical Activity: Sufficiently Active (01/16/2024) Exercise Vital Sign Days of Exercise per Week: 3 days Minutes of Exercise per Session: 150+ min Stress: No Stress Concern Present (01/16/2024) [employer] - Occupational Stress Questionnaire Feeling of Stress : Not at all Social Connections: Socially Isolated (01/16/2024) Social Connection and Isolation Panel [NHANES] Frequency of Communication with Friends and Family: Twice a week Frequency of Social Gatherings with Friends and Family: Never Attends Zoroastrian Services: Never Active Member of Clubs or Organizations: No Attends Club or Organization Meetings: Never Marital Status: Intimate Partner Violence: Not At Risk (01/16/2024) Humiliation, Afraid, Rape, and Kick questionnaire Fear of Current or Ex-Partner: No Emotionally Abused: No Physically Abused: No Sexually Abused: No Housing Stability: Low Risk (01/16/2024) Housing Stability Vital Sign Unable to Pay for Housing in the Last Year: No Number of Times Moved in the Last Year: 1 Homeless in the Last Year: No SCREENINGS PHYSICAL EXAM (up to 7 for level 4, 8 or more for level 5) @EDTRIAGEVSS@ Appropriate PPE including n 95, gown, gloves, goggles where worn when appropriate with this patient. Physical Exam Vital signs reviewed general: Alert and oriented ?3 head: Atraumatic eyes: Equal round reactive to light and accommodating, pupils are equal, round and reactive to light and accommodation oropharynx: Clear and well hydrated neck: Supple heart: Regular rate an (more content not included)... Normal [facility] LIPASEon 08-21-2024 Lipase [Catalytic activity/Vol] 24 U/L Normal <55 [facility] Comment on above: Performed By: #### L AB99, LAB17 ####Poll Clerk: ZAIDA MORRISSEY ([phone])[facility] ([facility])[address] [place] [address] Laboratory - Chemistry and C hemistry - challengeon 08-21-2024 Lipase [Catalytic activity/Vol] 24 U/L NINF - 55 U/L [facility] Lipase [Catalytic activity/V ol]on 08-21-2024 Interpretation and review of laboratory results Normal [facility] No Panel Informationon 08-21 [facility] XR Chest 2 Viewson No radiographic evidence of acute cardiopulmonary process. Report Dictated on Electronically Signed By: Vito Santana MD Electronically Signed Date/Time: 08/21/2024 12:36 PM [facility] EMERGENCY DEPARTMENT RADIOLOGY SYSTEM Patient Name: CORTNEY ACOSTA : 1955 Exam Date/Time: 08/21/2024 12:29 Procedure: XR CHEST 2 VIEWS Ordering Provider: MORELOS GREGORY Reason For Exam: Cough recent influenza EXAMINATION: PA/Lateral chest INDICATION: Cough recent influenza FINDINGS: There is no focal consolidation, sizable pleural effusion or pneumothorax. The cardiac silhouette and mediastinum are within normal limits. Small osteophytes of the spine are present at multiple levels with mild levoscoliosis. [facility] RADIOLOGY SYSTEM Vito Santana MD - 08/21/2024 Patient Name: CORTNEY ACOSTA : 1955 Exam Date/Time: 08/21/2024 12:29 Procedure: XR CHEST 2 VIEWS Ordering Provider: MORELOS GREGORY Reason For Exam: Cough recent influenza EXAMINATION: PA/Lateral chest INDICATION: Cough recent influenza FINDINGS: There is no focal consolidation, sizable pleural effusion or pneumothorax. The cardiac silhouette and mediastinum are within normal limits. Small osteophytes of the spine are present at multiple levels with mild levoscoliosis. IMPRESSION: No radiographic evidence of acute cardiopulmonary process. Report Dictated on Electronically Signed By: Vito Santana MD Electronically Signed Date/Time: 08/21/2024 12:36 PM EST [facility] Radiology Study observation (narrative) [facility]th XR Chest 2 ViewsOrdered By: Vito Santana on 08-21-2024 [facility] Work Phone: AMB POC RAPID INFLUENZA DNA/ RNAon 08-15-2024 [facility] Ag Negative [facility] Interpretation and review of laboratory results Abnormal [facility] Office Visiton 08-15-2024 Follow-up visit [id number] Cortney Acosta 1955 M Date Provider Department Center 08/15/2024 [id number] TARIQ [facility] Family History Problem Relation Age of Onset Emphysema Mother Cancer Father Family Status - Relation Status Age at Mother Father Level of Service:10992 PA OFFICE/OUTPATIENT ESTABLISHED LOW MDM 20 MIN Reason for Visit and Comments: Flank Pain [253492] - Right Nausea [70] Vomiting [120] Cough [28] Headache [52] Normal [facility] Progress Noteon 08-15-2024 Progress Note Has right rib pain chronic intermittent, imaging has been negative in the past for any fractures or abnormalities. Issue flared up with recent vomiting episodes. Will provide tramadol for short-term use only for pain. Tylenol and ibuprofen not effective Normal [facility] Progress Note Negative Normal [facility] Progress Note Positive influenza A . No acute distress. Will start Tamiflu 75 mg twice daily x 5 days. Normal [facility] Progress Note Patient was identifi ed by name and Date of . Orders pended and signed by provider. Patient identified by name and Date of . Patient swabbed via nasal cavity. Patient tolerated well. Point of Care Rapid influenza test completed in office. Results entered in patients chart and provider notified. Normal [facility] Progress Note 08/15/2024 Cortney Acosta (: 1955) is a 69 y.o. male , Established patient, here for evaluation of the following chief complaint(s): Flank Pain (Right/), Nausea, Vomiting, Cough, and Headache ASSESSMENT/PLAN: 1. Influenza A Assessment & Plan: Positive influenza A. No acute distress. Will start Tamiflu 75 mg twice daily x 5 days. Orders: - oseltamivir (Tamiflu) 75 MG capsule; Take 1 capsule (75 mg) by mouth 2 times daily for 5 days., Starting Sun08/15/2024, Until Sun08/20/2024, Normal 2. Viral URI with cough Assessment & Plan: Test for influenza AMB, patient negative COVID at home Orders: - AMB POC RAPID INFLUENZA DNA/RNA 3. Rib pain on right side Assessment & Plan: Has right rib pain chronic intermittent, imaging has been negative in the past for any fractures or abnormalities. Issue flared up with recent vomiting episodes. Will provide tramadol for short-term use only for pain. Tylenol and ibuprofen not effective Orders: - traMADol (Ultram) 50 MG tablet; Take 1 tablet (50 mg) by mouth every 8 hours as needed for severe pain (7-10) for up to 3 days., Starting Sun08/15/2024, Until 08/18/2024 at 2359, Normal Reviewed and provided written patient education/instructions regarding diagnosis and management. Reviewed symptom management with non-pharmacological interventions and appropriate use of otc medications for relief of symptoms. Follow up for worsening or no improvement in symptoms. Follow up if symptoms worsen or fail to improve. SUBJECTIVE/OBJECTIVE: [facility] CENTER - Cortney Acosta (: 1955) is a 69 y.o. male , Established patient, here for the evaluation of the following chief complaint(s): Flank Pain (Right/), Nausea, Vomiting, Cough, and Headache Started feeling sick Sunday. Cough, congested. Body aches. Nausea and vomiting (last yesterday), loose stools, last this am. Has felt feverish, chills. No chest pain or shortness of breath. Acetaminophen. He has right sided rib pain that is hurting very badly, he has had this issue in the past and imaging has been negative. States it was flared up with his dry heaving episodes. Has tried Tylenol and ibuprofen without significant relief Prior to Admission medications Medication Sig Start Date End Date Taking? Authorizing Provider hydrOXYzine HCl (Atarax) 25 MG tablet Take 1 tablet (25 mg) by mouth every 8 hours as needed for anxiety. Patient not taking: Reported on 08/15/2024 04/22/24 Anthony Chamorro MD losartan (Cozaar) 100 MG tablet TAKE 1 TABLET BY MOUTH DAILY Patient not taking: Reported on 08/15/2024 04/07/24 Anthony Chamorro MD rosuvastatin (Crestor) 5 MG tablet TAKE 1 TABLET BY MOUTH DAILY Patient not taking: Reported on 08/15/2024 04/07/24 Anthony Chamorro MD Review of Systems Constitutional: Positive for activity change, appetite change, chills, diaphoresis, fatigue and fever. HENT: Positive for congestion, postnasal drip, sinus pressure and sinus pain. Negative for sore throat and trouble swallowing. Respiratory: Positive for cough. Negative for shortness of breath and wheezing. Cardiovascular: Negative for chest pain. Right sided rib pain Gastrointestinal: Positive for nausea and vomiting. Negative for abdominal pain. Genitourinary: Negative for difficulty urinating. Musculoskeletal: Positive for arthralgias and myalgias. Neurological: Positive for headaches. Vitals: 08/15/24 1138 BP: 102/70 Pulse: 95 Resp: 16 Temp: 37.1 ?C (98.7 ?F) TempSrc: Infrared SpO2: 96% Weight: 144 lb 12.8 oz (65.7 kg) Physical Exam Constitutional: General: He is not in acute distress. Appearance: Normal appearance. He is ill-appearing (mild). HENT: Head: Normocephalic and atraumatic. Right Ear: Tympanic membrane normal. Left Ear: Tympanic membrane normal. Nose: Congestion and rhinorrhea present. Right Turbinates: Swollen. Left Turbinates: Swollen. Mouth/Throat: Mouth: Mucous membranes are moist. Pharynx: Oropharynx is clear. No oropharyngeal exudate or posterior oropharyngeal erythema. Eyes: Conjunctiva/sclera: Conjunctivae normal. Cardiovascular: Rate and Rhythm: Normal rate and regular rhythm. Pulses: Normal pulses. Heart sounds: Normal heart sounds. Pulmonary: Effort: Pulmonary effort is normal. Breath sounds: Normal breath sounds. Comments: Intermittent productive sounding cough. Speaking full sentences without difficulty Chest: Abdominal: General: Abdomen is flat. Bowel sounds are normal. Palpations: Abdomen is soft. Tenderness: There is no abdominal tenderness. Musculoskeletal: Right lower leg: No edema. Left lower leg: No edema. Lymphadenopathy: Cervical: No cervical adenopathy. Skin: General: Skin is warm and dry. Neurological: Mental Status: He is alert and oriented to person, place, and time. Psychiatric: Mood and Affect: Mood normal. Behavior: Behavior normal. An electronic signature was used to authenticate this note. (more content not included)... Normal [facility] 36on 08-14-2024 36 S: Rebekah fuller ng [facility] for pt URI/GI sx B: 2 dys A: reports deep/productive cough, n/v/d, fever, chills/myalgias. Pt currently sleeping. Pt still tolerating fluids. requesting OV for herself & pt. R: Appt scheduled for 08/15/24 @ 1140 w/ [employer] Nicolasa. agreeable. Insurance verified. Advised hydration and call back w/ new/worse sx. Reason for Disposition Patient wants to be seen Protocols used: [id number] Normal [facility] 36on 07-11-2024 36 Reason for call:Call ed to schedule Patient for US Retroperitoneum. Patient refused to schedule at this time stating he was unsure if he wants to get US done. Please advise. Contact Phone Number: [phone] Normal [facility] Urinalysis macro (dipstick) panel (U)on 05-20-2024 Bilirubin, [facility]A Negative [facility], [facility]A Negative [facility] Glucose, UA Negative [facility] Ketones, POC (mg/dL) Negative [facility] Leukocytes, UA Moderate [facility] th Nitrite, UA Negative [facility] pH, UA 6.0 [facility] Protein, UA Negative [facility] Spec Grav, UA 1.025 [facility] U[facility], UA 0.2 [facility] CT Cervical spine WO contras ton 03-18-2024 Mild cervical spondylosis. No fracture or traumatic malalignment. Report Dictated on Electronically Signed By: Jeff Almanza MD Electronically Signed Date/Time: 03/18/2024 3:07 PM EDT [facility] Patient Name: CORTNEY ACOSTA : 1955 Exam Date/Time: 03/18/2024 14:52 Procedure: CT CERVICAL SPINE WO IV CONTRAST Ordering Provider: ALEMAN MARTIN Reason For Exam: Neck pain, acute, no red flags EXAMINATION: CT CERVICAL SPINE WO IV CONTRAST CLINICAL HISTORY: Neck pain, acute, no red flags COMPARISON: None TECHNIQUE: Thin isotropic axial images were obtained from the skull base to the upper thoracic spine without intravenous contrast. Dose reduction was employed with automated exposure control. FINDINGS: Craniocervical Junction: Normal alignment. Alignment: Anatomic Vertebrae: No acute fracture or traumatic malalignment. No aggressive osseous lesions. Soft Tissues: No acute abnormality. Canal and Foramina: Mild cervical degenerative changes without significant spinal canal stenosis. [facility] Jeff Almanza MD - 03/18/2024 Patient Name: CORTNEY ACOSTA : 1955 Exam Date/Time: 03/18/2024 14:52 Procedure: CT CERVICAL SPINE WO IV CONTRAST Ordering Provider: ALEMAN MARTIN Reason For Exam: Neck pain, acute, no red flags EXAMINATION: CT CERVICAL SPINE WO IV CONTRAST CLINICAL HISTORY: Neck pain, acute, no red flags COMPARISON: None TECHNIQUE: Thin isotropic axial images were obtained from the skull base to the upper thoracic spine without intravenous contrast. Dose reduction was employed with automated exposure control. FINDINGS: Craniocervical Junction: Normal alignment. Alignment: Anatomic Vertebrae: No acute fracture or traumatic malalignment. No aggressive osseous lesions. Soft Tissues: No acute abnormality. Canal and Foramina: Mild cervical degenerative changes without significant spinal canal stenosis. IMPRESSION: Mild cervical spondylosis. No fracture or traumatic malalignment. Report Dictated on Electronically Signed By: Jeff Almanza MD Electronically Signed Date/Time: 03/18/2024 3:07 PM EDT [facility] Radiology Study observation (narrative) [facility] CT Cervical spine WO contras tOrdered By: Jeff Almanza on 03-18-2024 [facility] Work Phone: CT Thoracic spine WO contras ton 03-18-2024 Mild thoracic spondylosis. No evidence for acute fracture is identified. Report Dictated on Electronically Signed By: Jeff Almanza MD Electronically Signed Date/Time: 03/18/2024 3:10 PM EDT [email or web address] Patient Name: CORTNEY ACOSTA : 1955 Exam Date/Time: 03/18/2024 14:53 Procedure: CT THORACIC SPINE WO IV CONTRAST Ordering Provider: ALEMAN MARTIN Reason For Exam: Mid-back pain, compression fracture suspected CT THORACIC SPINE : CLINICAL INDICATION: Mid-back pain, compression fracture suspected TECHNIQUE: Transaxial sequence through the thoracic spine. Multiplanar reconstruction imaging was performed. Dose reduction was employed with automated exposure control. COMPARISON: None FINDINGS: Thoracic vertebrae and joints: No fracture, subluxation or other malalignment. Facet joints are unremarkable. No bone lesion identified. Intervertebral disc spaces and spinal canal: Disc space narrowing and endplate osteophyte formation is noted most pronounced at the at the T3-T4 and the T7-T8 to T10-T11 levels.. No bony encroachment upon the thoracic spinal canal. Soft tissues: Surrounding paraspinal soft tissues are unremarkable on this noncontrast study. [facility] Jeff Almanza MD - 03/18/2024 [facility] 1955 [id number] Exam Date/Time: 03/18/2024 14:53 Procedure: CT THORACIC SPINE WO IV CONTRAST Ordering Provider: ALEMAN MARTIN Reason For Exam: Mid-back pain, compression fracture suspected CT THORACIC SPINE : CLINICAL INDICATION: Mid-back pain, compression fracture suspected TECHNIQUE: Transaxial sequence through the thoracic spine. Multiplanar reconstruction imaging was performed. Dose reduction was employed with automated exposure control. COMPARISON: None FINDINGS: Thoracic vertebrae and joints: No fracture, subluxation or other malalignment. Facet joints are unremarkable. No bone lesion identified. Intervertebral disc spaces and spinal canal: Disc space narrowing and endplate osteophyte formation is noted most pronounced at the at the T3-T4 and the T7-T8 to T10-T11 levels.. No bony encroachment upon the thoracic spinal canal. Soft tissues: Surrounding paraspinal soft tissues are unremarkable on this noncontrast study. IMPRESSION: Mild thoracic spondylosis. No evidence for acute fracture is identified. Report Dictated on Electronically Signed By: Jeff Almanza MD Electronically Signed Date/Time: 03/18/2024 3:10 PM EDT [facility] Radiology Study observation (narrative) [facility] alth CBC W Auto Differential pane l (Bld)on 03-07-2024 Basophils (Bld) [#/Vol] 0.0 10*3/uL 0.0 - 0.2 10*3/uL [facility] Basophils/100 WBC (Bld) 0.5 % 0.0 - 2.0 % [facility] Eosinophils (Bld) [#/Vol] 0.2 10*3/uL 0.0 - 0.5 10*3/uL [facility] Eosinophils/100 WBC (Bld) 1.8 % 0.0 - 6.0 % [facility] Erythrocyte distribution width (RBC) [Ratio] 13.2 % 11.5 - 15.0 % [facility] Hematocrit (Bld) [Volume fraction] 38.8 % Low 40.0 - 52.0 % [facility] Hemoglobin (Bld) [Mass/Vol] 13.6 g/dL 13.0 - 18.0 g/dL [facility] Immature granulocytes (Bld) [#/Vol] 0.0 10*3/uL NINF - 0.1 10*3/uL [facility] Immature granulocytes/100 WBC (Bld) 0.2 % 0.0 - 2.0 % [facility] Interpretation and review of laboratory results Abnormal [facility] Lymphocytes (Bld) [#/Vol] 3.1 10*3/uL 1.0 - 4.3 10*3/uL [facility] Lymphocytes/100 WBC (Bld) 37.6 % 15.0 - 45.0 % [facility] MCH (RBC) [Entitic mass] 31.3 pg 26.0 - 34.0 pg [facility] MCHC (RBC) [Mass/Vol] 35.1 % 30.5 - 36.0 % [facility] MCV (RBC) [Entitic vol] 89.4 fL 77.0 - 99.0 fL [facility] Monocytes (Bld) [#/Vol] 0.6 10*3/uL 0.0 - 0.9 10*3/uL [facility] Monocytes/100 WBC (Bld) 7.0 % 5.0 - 13.0 % [facility] Neutrophils (Bld) [#/Vol] 4.4 10*3/uL 1.8 - 7.5 10*3/uL [facility] Neutrophils/100 WBC (Bld) 52.9 % 38.0 - 82.0 % [facility] Nucleated RBC/100 WBC (Bld) [Ratio] 0.0 % [facility] Platelet mean volume (Bld) [Entitic vol] 8.7 fL Low 9.0 - 12.7 fL [facility] Comment on above: MPV is a calculated measurement using platelet volume ratio Platelets (Bld) [#/Vol] 317 10*3/uL 140 - 440 10*3/uL [facility] RBC (Bld) [#/Vol] 4.34 10*6/uL Low 4.40 - 5.9 0 10*6/uL [facility] WBC (Bld) [#/Vol] 8.3 10*3/uL 3.6 - 10.7 10*3/uL [facility] CT Abdomen and Pelvis W cont rast Sarah 03-07-2024 1. Few scattered colonic diverticula. No evidence of acute diverticulitis. 2. Normal appendix. Report Dictated on Electronically Signed By: Solomon Cardona MD Electronically Signed Date/Time: 03/07/2024 3:47 AM [email or web address] Patient Name: CORTNEY ACOSTA : 1955 [id number] Exam Date/Time: 03/07/2024 03:22 Procedure: CT ABDOMEN PELVIS W CONTRAST Ordering Provider: LY JONATHAN Reason For Exam: RLQ abdominal pain (Age >= 14y) EXAM: CT Abdomen and pelvis INDICATION: Right lower quadrant pain COMPARISON: none TECHNIQUE: CT of the abdomen and pelvis was performed with contrast (75 mL of Isovue 370 was injected intravenously). Coronal and sagittal reformats were obtained. Dose reduction was employed with automated exposure control. FINDINGS: LOWER CHEST: within normal limits. ABDOMEN: LIVER: Few scattered subcentimeter low-attenuation lesions noted in the liver, too small to characterize, but likely representing cysts. No routine follow-up recommended. BILE DUCTS: normal caliber. GALLBLADDER: No calcified gallstones. Normal caliber wall. PANCREAS: within normal limits. SPLEEN: within normal limits. ADRENALS: within normal limits. KIDNEYS: A 10 mm cyst in the interpolar region of the right kidney. No routine follow-up recommended. No solid renal mass or hydronephrosis. PELVIS: REPRODUCTIVE ORGANS: No pelvic masses. URETERS: within normal limits. BLADDER: within normal limits. BOWEL: Bowel is normal in caliber. Appendix within normal limits. Scattered colonic diverticula. No evidence of acute diverticulitis. No enlarged mesenteric lymph nodes. PERITONEUM: no ascites or free air, no fluid collection. VESSELS: Within normal limits. LYMPH NODES: No enlarged nodes. RETROPERITONEUM: within normal limits. ABDOMINAL WALL: within normal limits. BONES: Status post right total hip arthroplasty. Hemangioma noted in the L2 vertebral body. [facility] Solomon Cardona MD - 03/07/2024 Patient Name: CORTNEY ACOSTA : 1955 [id number] Exam Date/Time: 03/07/2024 03:22 Procedure: CT ABDOMEN PELVIS W CONTRAST Ordering Provider: LY JONATHAN Reason For Exam: RLQ abdominal pain (Age >= 14y) EXAM: CT Abdomen and pelvis INDICATION: Right lower quadrant pain COMPARISON: none TECHNIQUE: CT of the abdomen and pelvis was performed with contrast (75 mL of Isovue 370 was injected intravenously). Coronal and sagittal reformats were obtained. Dose reduction was employed with automated exposure control. FINDINGS: LOWER CHEST: within normal limits. ABDOMEN: LIVER: Few scattered subcentimeter low-attenuation lesions noted in the liver, too small to characterize, but likely representing cysts. No routine follow-up recommended. BILE DUCTS: normal caliber. GALLBLADDER: No calcified gallstones. Normal caliber wall. PANCREAS: within normal limits. SPLEEN: within normal limits. ADRENALS: within normal limits. KIDNEYS: A 10 mm cyst in the interpolar region of the right kidney. No routine follow-up recommended. No solid renal mass or hydronephrosis. PELVIS: REPRODUCTIVE ORGANS: No pelvic masses. URETERS: within normal limits. BLADDER: within normal limits. BOWEL: Bowel is normal in caliber. Appendix within normal limits. Scattered colonic diverticula. No evidence of acute diverticulitis. No enlarged mesenteric lymph nodes. PERITONEUM: no ascites or free air, no fluid collection. VESSELS: Within normal limits. LYMPH NODES: No enlarged nodes. RETROPERITONEUM: within normal limits. ABDOMINAL WALL: within normal limits. BONES: Status post right total hip arthroplasty. Hemangioma noted in the L2 vertebral body. IMPRESSION: 1. Few scattered colonic diverticula. No evidence of acute diverticulitis. 2. Normal appendix. Report Dictated on Electronically Signed By: Solomon Cardona MD Electronically Signed Date/Time: 03/07/2024 3:47 AM EDT [facility] Radiology Study observation (narrative) [facility] Abdomen and Pelvis W cont rast IVOrdered By: Solomon Cardona on 03-07-2024 [facility] [employer] Work Phone: Comprehensive metabolic 1998 panelon 03-07-2024 Albumin [Mass/Vol] 4.0 g/dL 3.5 - 5.0 g/dL [facility] ALP [Catalytic activity/Vol] 54 U/L 38 - 126 U/L [facility] ALT [Catalytic activity/Vol] 14 U/L 0 - 49 U/L [facility] Anion gap [Moles/Vol] 5 mmol/L 3 - 13 mmol/L [facility] AST [Catalytic activity/Vol] 26 U/L 15 - 46 U/L [facility] Bilirubin [Mass/Vol] 0.5 mg/dL 0.2 - 1 .3 mg/dL [facility] Calcium [Mass/Vol] 9.4 mg/dL 8.4 - 10. 4 mg/dL [facility] Chloride [Moles/Vol] 104 mmol/L 98 - 10 7 mmol/L [facility] CO2 [Moles/Vol] 27 mmol/L 22 - 30 mmol/L [facility] Creatinine [Mass/Vol] 0.78 mg/dL 0.66 - 1.25 mg/dL [facility] GFR/1.73 sq M.predicted (S/P/Bld) [Vol rate/Area] - PINF [facility] Comment on above: Calculation based on the Chronic Kidney Disease Epidemiology Collaboration (CKD-EPI) equation refit without adjustment for race Glucose [Mass/Vol] 96 mg/dL 70 - 100 mg/dL [facility] Interpretation and review of laboratory results Abnormal [facility] Potassium [Moles/Vol] 3.8 mmol/L 3.5 - 5.1 mmol/L [facility] Protein [Mass/Vol] 6.8 g/dL 6.3 - 8.2 g/dL [facility] Sodium [Moles/Vol] 137 mmol/L 135 - 145 mmol/L [facility] Urea nitrogen [Mass/Vol] 25 mg/dL High 9 - 20 mg/dL [facility] Laboratory - Chemistry and C hemistry - challengeon 03-07-2024 Lipase [Catalytic activity/Vol] 94 U/L 23 - 300 U/L [facility] Lipase [Catalytic activity/V ol]on 03-07-2024 Interpretation and review of laboratory results Normal [facility] No Panel Informationon 03-07 [facility] Urinalysis complete panel (U )on 03-07-2024 Bilirubin Ql (U) Negative Negative mg/dL [facility] Clarity (U) Clear Clear [facility] Color (U) Colorless Lt. Yellow [facility] Glucose Ql (U) Normal Normal (<70) mg/dL [facility] Hemoglobin Ql (U) Negative Negative mg/dL [facility] Interpretation and review of laboratory results Normal [facility] Ketones (U) [Mass/Vol] Negative Negat sanaz mg/dL [facility] Leukocyte esterase Test strip Ql (U) Negative Negative Christine/uL [facility] Nitrite Ql (U) Negative Negative [facility] th pH (U) 6.0 [pH] 5.0 - 8.0 pH [facility] Protein (U) [Mass/Vol] Negative Negat sanaz mg/dL [facility] Specific gravity (U) [Rel density] 1.018 1.005 - 1.030 [facility] Urobilinogen (U) [Mass/Vol] Normal Normal (0-1) mg/dL [facility] XR Hip - right 3 Viewson Moderate left hip degenerative changes. Report Dictated on Electronically Signed By: Delio Padgett Electronically Signed Date/Time: 08/09/2022 10:25 PM EST [facility] Patient Name: CORTNEY ACOSTA Exam Date/Time: 08/09/2022 08:46 Procedure: XR HIP 2 OR 3 VW RIGHT Ordering Provider: FERNANDES JACK Reason For Exam: Right hip two views HISTORY: Hip replacement There is a bipolar right hip prosthesis. No evidence of a fracture or dislocation. Moderate left hip degenerative changes. No bony lesions. [facility] Delio Padgett MD - 08/09/2022 Patient Name: CORTNEY ACOSTA Exam Date/Time: 08/09/2022 08:46 Procedure: XR HIP 2 OR 3 VW RIGHT Ordering Provider: FERNANDES JACK Reason For Exam: Right hip two views HISTORY: Hip replacement There is a bipolar right hip prosthesis. No evidence of a fracture or dislocation. Moderate left hip degenerative changes. No bony lesions. IMPRESSION: Moderate left hip degenerative changes. Report Dictated on Electronically Signed By: Delio Padgett Electronically Signed Date/Time: 08/09/2022 10:25 PM EST [facility] Radiology Study observation (narrative) [facility] XR Hip - right 3 ViewsOrdere d By: Delio Padgett on 08-09-2022 [employer] Work Phone: CR Hip w/ Pelvis 2 or 3 View s Righton 03-29-2022 CR Hip w/ Pelvis 2 or 3 Views Right Patient Name: CORTNEY ACOSTA Diagnostic Radiology ACCESSION EXAM DATE/TIME PROCEDURE ORDERING PROVIDER [id number] 03/29/2022 08:45 EDT CR Hip w/ Pelvis 2 or 3 [id number] -MIKHAIL FERNANDES Views Right n CPT code 44631 Reason For Exam (CR Hip w/ Pelvis 2 or 3 Views Right n) s/p total right hip arthroplasty Report PELVIS AND RIGHT HIP: CLINICAL INDICATION: Pain. TECHNIQUE: AP pelvis and two views of the right hip COMPARISON: 02/28/2022 pelvic radiograph FINDINGS: Patient status post right total hip arthroplasty. There is no evidence of perihardware lucency or malalignment. Moderate osteoarthrosis of the left hip. The soft tissues appear unremarkable. IMPRESSION: Status post right total hip arthroplasty without evidence of hardware malfunction. Moderate osteoarthrosis of the left hip. Report Dictated on Final Dictating Physician: MD VILLAFANA PATRICK Signed Date and Time: 03/29/2022 3:40 pm Signed by: MD VILLAFANA PATRICK Transcribed Date and Time: 03/29/2022 3:41 Normal [facility] XR HIP RIGHT (2-3 VIEWS)on 0 03-29-2022 Patient Name: CORTNEY ACOSTA Diagnostic Radiology ACCESSION EXAM DATE/TIME PROCEDURE ORDERING PROVIDER [id number] 03/29/2022 08:45 EDT CR Hip w/ Pelvis 2 or 3 [id number] -MIKHAIL FERNANDES Views Right n CPT code 05734 Reason For Exam (CR Hip w/ Pelvis 2 or 3 Views Right n) s/p total right hip arthroplasty Report PELVIS AND RIGHT HIP: CLINICAL INDICATION: Pain. TECHNIQUE: AP pelvis and two views of the right hip COMPARISON: 02/28/2022 pelvic radiograph FINDINGS: Patient status post right total hip arthroplasty. There is no evidence of perihardware lucency or malalignment. Moderate osteoarthrosis of the left hip. The soft tissues appear unremarkable. IMPRESSION: Status post right total hip arthroplasty without evidence of hardware malfunction. Moderate osteoarthrosis of the left hip. Report Dictated on --- Final --- Dictating Physician: MD VILLAFANA PATRICK Signed Date and Time: 03/29/2022 3:40 pm Signed by: MD VILLAFANA PATRICK Transcribed Date and Time: 03/29/2022 3:41 [facility] RAD Result, Unknown Provider - 03/29/2022 Patient Name: CORTNEY ACOSTA Diagnostic Radiology ACCESSION EXAM DATE/TIME PROCEDURE ORDERING PROVIDER [id number] 03/29/2022 08:45 EDT CR Hip w/ Pelvis 2 or 3 [id number] STEVE Views Right n CPT code 16023 Reason For Exam (CR Hip w/ Pelvis 2 or 3 Views Right n) s/p total right hip arthroplasty Report PELVIS AND RIGHT HIP: CLINICAL INDICATION: Pain. TECHNIQUE: AP pelvis and two views of the right hip COMPARISON: 02/28/2022 pelvic radiograph FINDINGS: Patient status post right total hip arthroplasty. There is no evidence of perihardware lucency or malalignment. Moderate osteoarthrosis of the left hip. The soft tissues appear unremarkable. IMPRESSION: Status post right total hip arthroplasty without evidence of hardware malfunction. Moderate osteoarthrosis of the left hip. Report Dictated on --- Final --- Dictating Physician: MD VILLAFANA PATRICK Signed Date and Time: 03/29/2022 3:40 pm Signed by: MD VILLAFANA PATRICK Transcribed Date and Time: 03/29/2022 3:41 [facility] Work Phone: Radiology Study observation (narrative) [facility] Work Phone: XR HIP RIGHT (2-3 VIEWS)Orde red By: Unknown Result on 03-29-2022 [facility] CR Pelvis 1 or 2 Viewson CR Pelvis 1 or 2 Views Patient Name: CORTNEY HOLLIS Diagnostic Radiology ACCESSION EXAM DATE/TIME PROCEDURE ORDERING PROVIDER [id number] 02/28/2022 10:48 EDT CR Pelvis 1 or 2 Views [id number] MIKHAIL KUMAR CPT code 73458 Reason For Exam (CR Pelvis 1 or 2 Views) s/p R LASHONDA Report CLINICAL INFORMATION: Degenerative hip disease. Right hip arthroplasty. AP view of the pelvis is provided. The examination is compared to a previous study dated 12/12/2021.. FINDINGS: The patient is now status post total right hip arthroplasty. There is no kory-implant fracture, dislocation, or loosening. IMPRESSION: 1. Satisfactory images status post total right hip arthroplasty. Report Dictated on Final Dictating Physician: MD CABELLO JEFFREY Signed Date and Time: 03/01/2022 4:22 am Signed by: MD CABELLO JEFFREY Transcribed Date and Time: 03/01/2022 4:23 Normal [facility] Op Noteon 02-28-[address] [facility] GENERAL SURGERY [address] [facility] [address] Dept: [phone] Loc: [phone] Operative Report Patient Name: Cortney Acosta Date of : 1955 Date of Surgery: 02/28/22 DATE OF SURGERY: 02/28/22 PREOPERATIVE DIAGNOSIS: RIGHT Hip Degenerative Arthritis - M16.11 POSTOPERATIVE DIAGNOSIS: Same PROCEDURE PERFORMED: Primary cementless right total hip arthroplasty, direct anterior approach SURGEON: Rosanne Giraldo MD ASSISTANTS: Mikhail Fernandes PA-C, [facility] PGY-IV, Saúl VEGA ANESTHESIA: Monitored Anesthesia Care, Spinal Anaesthesia, and Quadratus Lumborum Block Post-op INTRAVENOUS FLUIDS: 1,000 mL ESTIMATED BLOOD LOSS: 300 mL DRAIN: None. COMPLICATIONS: Patient tolerated the procedure well without anesthetic or surgical/operative complications. COMPONENTS: DePuy Sagamore acetabular component size 56 mm, 40 neutral highly crosslinked polyethylene acetabular liner, a 40 +1.5 Biolox delta ceramic femoral head, Depuy Actis femoral component size 4 high offset, two divergent acetabular screws INTRAOPERATIVE FINDINGS: The intra-operative finding confirmed the clinical and radiographic finding of end-stage osteoarthritis characterized by complete bone loss on the femoral head and acetabulum with presence of osteophytes. TISSUE REMOVED OR ALTERED: Femoral head and acetabular reamings removed via standard resection. COMORBIDITIES: Arthritis Degenerative joint disease of right hip Hypertension SPECIMEN: None OPERATIVE NOTE ADDENDUM: None. HISTORY: The patient has progressive and debilitating hip pain secondary to end-stage osteoarthritis, supported by clinical and radiographic evidence and has failed nonoperative management. The patient was deemed appropriate for a total hip arthroplasty. Risks, benefits ,and alternatives to surgical treatment were discussed in detail with the patient and the patient wished to proceed with the total hip arthroplasty. The patient was seen and thoroughly evaluated by a medical assistant float preoperatively and was optimized for surgical intervention. SURGICAL PROCEDURE: Prior to initiation of the operative procedure a surgical time-out was taken and the patient's name, medical record, number, [id number], and operative side was verified with the surgical consent form. Additionally it was verified that the appropriate kory-operative antibiotic administration was completed, as well as that radiographs were available and the correct operative instrumentation and implants were available. After routine preparation and draping of the patient in the total joint operating room, a direct anterior approach was made to the hip joint. The skin and subcutaneous tissues were incised. Electrocautery was utilized to maintain hemostasis along the skin edges. The subcutaneous fat was bluntly dissected. Subsequently the tensor fascia hola muscle was visualized and the medial and lateral borders identified. The medial border was identified by the fat strip that lies just medial to the muscle. The tip of the knife blade was used to gently incise the TFL fascia at the junction of the medial third and middle third of the TFL muscle belly. Care was taken to ensure that the musculature was not damaged at the area of the fascial incision. Finger dissection was usedto locate the anterior femoral neck. A blunt Cobra retractor was then placed in the split at the level of the piriformis fossa. Subsequently the plane between the TFL and fascia was expanded distally to the inferior aspect of the wound. A sharp Hohmann retractor was placed at the level of the vastus ridge retracting the mid aspect of the TFL. The lateral circumflex vessels were then visualized and cauterized. The interval between the rectus and the anterior hip capsule at the level of the inferior neck was completed and a Zavala and then blunt Cobra retractor was placed. Subsequently the interval between the anterior capsule and the rectus was developed with electrocautery and completed with careful blunt dissection. A Zavaal was used to elevate the soft tissues above the mid point of the femoral head, allowing a sharp curved Hohmann retractor to be placed safely. No muscle or superficial soft tissues were interposed under this retractor. The anterior capsule was split in a ?T? formation from the superolateral neck to the inferomedial neck and a capsulectomy completed. The saddle of the proximal femur was identified. The electrocautery was used to sruthi the sites of the femoral neck cut. A double osteotomy was completed to remove a wafer of bone, following which a power corkscrew was inserting into the remaining femoral head to extract it from the acetabulum. A sharp broad Cobra was placed behind the posterior acetabular wall. Then, the inferior capsule was released over a tonsil. A blunt narrow Hohmann was placed under the transverse acetabula (more content not included)... Normal [facility] Add On Lab Teston 02-23-2022 Add On Accepted [facility] Work Phone: Comment on above: Specimen available & acceptable for analysis. Test Performed by [facility], [address] [place], [place] [id number] [place] [address] LAB [facility] Work Phone: Add on test from HISon 02-23 Add on test from HIS Accepted Normal [facility] Comment on above: Result Comment: Spec imen available & acceptable for analysis. Performed By: #### A DDON ####[facility] [place] [address] CBC with Auto Differentialon 02-23-2022 Absolute Baso # 0.0 10*3/uL 0 - 0.2 10*3/uL [facility] Work Phone: 1 22 Absolute Neut # 3.7 10*3/uL 1.8 - 7 10*3/uL [facility] Work Phone: 1 22 Basophils/100 WBC (Bld) 0.8 % 0 - 2 % [facility] Work Phone: Eosinophils (Bld) [#/Vol] 0.0 10*3/uL 0 - 0.5 10*3/uL [facility] Work Phone: 1 22 Eosinophils/100 WBC (Bld) 0.5 % Low 1 - 6 % [facility] Work Phone: Granulocytes/100 WBC (Bld) 62.3 % 40 - 80 % [facility] Work Phone: Hematocrit (Bld) [Volume fraction] 42.8 % 40 - 52 % [facility] Work Phone: Hemoglobin (Bld) [Mass/Vol] 14.4 g/dL 13 - 18 g/dL [facility] Work Phone: Interpretation and review of laboratory results Abnormal [facility] Work Phone: Lymphocytes (Bld) [#/Vol] 1.7 10*3/uL 1 - 4.3 10*3/uL [facility] Work Phone: Lymphocytes/100 WBC (Bld) 28.3 % 20 - 40 % [facility] Work Phone: MCH (RBC) [Entitic mass] 30.3 pg 26 - 34 pg [facility] Work Phone: MCHC (RBC) [Mass/Vol] 33.7 % 32 - 36 % [facility] Work Phone: MCV (RBC) [Entitic vol] 89.9 fL 80 - 98 fL [facility] Work Phone: Monocytes (Bld) [#/Vol] 0.5 10*3/uL 0 - 0.8 10*3/uL [facility] Work Phone: Monocytes/100 WBC (Bld) 8.1 % 2 - 10 % [facility] Work Phone: [phone] Platelet distribution width (Bld) [Ratio] 13.6 % 11.5 - 14.5 % [facility] Work Phone: [phone] Platelet mean volume (Bld) [Entitic vol] 6.6 fL Low 7.4 - 12.4 fL [facility] Work Phone: [phone] Comment on above: MPV is a calculated measurement using platelet volume ratio. Platelets (Bld) [#/Vol] 330 10*3/uL 140 - 440 10*3/uL [facility] Work Phone: [phone] (Bld) [#/Vol] 4.76 10*6/uL 4.4 - 5.9 10*6/uL [facility] Work Phone: [phone] (Bld) [#/Vol] 5.9 10*3/uL 3.6 - 10.7 10*3/uL [facility] Work Phone: [phone] Test Performed by [facility], [address] LAB [facility] Work Phone: [phone] CR Chest PA/LATon 02-23-2022 CR Chest PA/LAT Patient Name: CORTNEY ACOSTA Diagnostic Radiology ACCESSION EXAM DATE/TIME PROCEDURE ORDERING PROVIDER [id number] 02/23/2022 16:14 EDT CR Chest PA and LAT MD SANAZ, TONIO Lindsey CPT code 24189 Reason For Exam (CR Chest PA and LAT) Upper back pain Report Examination: PA And Lateral Chest. Comparison: None. Reason For Study: Upper back pain. Support Devices: None. Findings/Interpretation : 1. Lungs are hyperexpanded which may be seen with emphysema or asthma. 2. No evidence of acute chest pathology. Report Dictated on Final Dictating Physician: MD MORELOS B NELSON Signed Date and Time: 02/23/2022 4:27 pm Signed by: MD MORELOS B NELSON Transcribed Date and Time: 02/23/2022 4:28 Normal [facility] Comp Metabolic Panelon 02-23 ALP [Catalytic activity/Vol] 56 U/L Normal 38-126 [facility] Comment on above: Performed By: #### T ROPN, HEMDF, DDI2, LIPA4, CMP3 ####[place] [address] [place] [address] ALT [Catalytic activity/Vol] 15 U/L Normal 0-49 [facility] Comment on above: Result Comment: The ALT test is performed by an updated assay method. Please note that the reference intervals have been changed and are now sex specific. Performed By: #### T ROPN, HEMDF, DDI2, LIPA4, CMP3 ####[place] [address] [place] [address] Anion gap [Moles/Vol] 7 mmol/L Normal 3-13 [facility] Comment on above: Performed By: #### T ROPN, HEMDF, DDI2, LIPA4, CMP3 ####[place] [address] [place] [address] AST [Catalytic activity/Vol] 24 U/L Normal 15-46 [facility] Comment on above: Performed By: #### T ROPN, HEMDF, DDI2, LIPA4, CMP3 ####[place] [address] [place] [address] Bilirubin [Mass/Vol] 0.4 mg/dL Normal 0.2-1.3 [facility] Comment on above: Performed By: #### T ROPN, HEMDF, DDI2, LIPA4, CMP3 ####[place] [address] [place] [address] Calcium [Mass/Vol] 9.1 mg/dL Normal 8.4-10.4 [facility] Comment on above: Performed By: #### T ROPN, HEMDF, DDI2, LIPA4, CMP3 ####[place] [address] [place] [address] CO2 [Moles/Vol] 30 mmol/L Normal 22-30 [facility] Comment on above: Performed By: #### T ROPN, HEMDF, DDI2, LIPA4, CMP3 ####[place] [address] [place] [address] Glucose [Mass/Vol] 97 mg/dL Normal 70-100 [facility] Comment on above: Performed By: #### T ROPN, HEMDF, DDI2, LIPA4, CMP3 ####[place] [address] [place] [address] Protein [Mass/Vol] 7.5 g/dL Normal 6.3-8.2 [facility] Comment on above: Performed By: #### T ROPN, HEMDF, DDI2, LIPA4, CMP3 ####[place] [address] [place] [address] Urea nitrogen [Mass/Vol] 15 mg/dL Normal 7-17 [facility] Comment on above: Performed By: #### T ROPN, HEMDF, DDI2, LIPA4, CMP3 ####[place] [address] [place] [address] Creatinine [Mass/Vol] 0.74 mg/dL Normal 0.52-1.25 [facility] Comment on above: Performed By: #### T ROPN, HEMDF, DDI2, LIPA4, CMP3 ####[place] [address] [place] [address] eGFR OTHER > 90.0 Normal >60 [facility] Comment on above: Result Comment: KDIG O guidelines provide the following GFR categories: Stage GFR(ml/min/1.73 m2) Terms G1 >=90 Normal or high G2 60-89 Mildly decreased* G3a 45-59 Mildly to moderately decreased G3b 30-44 Moderately to severely decreased G4 15-29 Severely decreased G5 <15 Kidney failure *Relative to young adult level. In the absence of evidence of kidney damage, neither GFR category G1 nor G2 fulfill the criteria for CKD. The CKD-EPI equation is validated in individuals 18 years of age and older. Currently the best equation for estimating glomerular filtration rate (GFR) from serum creatinine in children is the Bedside Alvarez equation. It is less accurate in patients with extremes of muscle mass, restriction of dietary protein, ingestion of creatine, extra-renal metabolism of creatinine, or treatment with medications that affect renal tubular creatinine secretion. Performed By: #### T ROPN, HEMDF, DDI2, LIPA4, CMP3 ####[place] [address] [place] [address] GFR/1.73 sq M.predicted among blacks MDRD (S/P/Bld) [Vol rate/Area] mL/min/{1.73_m2} Normal >60 [facility] Comment on above: Performed By: #### T ROPN, HEMDF, DDI2, LIPA4, CMP3 ####[facility] [place] [address] Albumin [Mass/Vol] 4.5 g/dL Normal 3.5-5.0 [facility] Comment on above: Performed By: #### T ROPN, HEMDF, DDI2, LIPA4, CMP3 ####[place] [address] [place] [address] Chloride [Moles/Vol] 105 mmol/L Normal 98-107 [facility] Comment on above: Performed By: #### T ROPN, HEMDF, DDI2, LIPA4, CMP3 ####[place] [address] [place] [address] Potassium [Moles/Vol] 4.6 mmol/L Normal 3.5-5.1 [facility] Comment on above: Performed By: #### T ROPN, HEMDF, DDI2, LIPA4, CMP3 ####[place] [address] [place] [address] Sodium [Moles/Vol] 141 mmol/L Normal 135-145 [facility] Comment on above: Performed By: #### T ROPN, HEMDF, DDI2, LIPA4, CMP3 ####[place] [address] [place] [address] Comprehensive Metabolic Pane héctor 02-23-2022 Albumin [Mass/Vol] 4.5 g/dL 3.5 - 5 g/dL [facility] Work Phone: ALP (Bld) [Catalytic activity/Vol] 56 U/L 38 - 126 U/L [facility] Work Phone: ALT [Catalytic activity/Vol] 15 U/L 0 - 49 U/L [facility] Work Phone: Comment on above: The ALT test is perf ormed by an updated assay method. Please note that the reference intervals have been changed and are now sex specific. Anion gap [Moles/Vol] 7 mmol/L 3 - 13 mmol/L [facility] Work Phone: [phone] AST [Catalytic activity/Vol] 24 U/L 15 - 46 U/L [facility] Work Phone: [phone] Bilirubin [Mass/Vol] 0.4 mg/dL 0.2 - 1 .3 mg/dL [facility] Work Phone: [phone] Calcium [Mass/Vol] 9.1 mg/dL 8.4 - 10. 4 mg/dL [facility] Work Phone: [phone] Chloride [Moles/Vol] 105 mmol/L 98 - 10 7 mmol/L [facility] Work Phone: [phone] CO2 [Moles/Vol] 30 mmol/L 22 - 30 mmol/L [facility] Work Phone: [phone] Creatinine [Mass/Vol] 0.74 mg/dL 0.52 - 1.25 mg/dL [facility] Work Phone: [phone] eGFR mL/min 60 - P INF mL/min [facility] Work Phone: [phone] EGFR IF NonAfrican French mL/min 60 - PINF mL/min [facility] Work Phone: Comment on above: KDIGO guidelines pro vide the following GFR categories: Stage GFR(ml/min/1.73 m2) Terms G1 >=90 Normal or high G2 60-89 Mildly decreased* G3a 45-59 Mildly to moderately decreased G3b 30-44 Moderately to severely decreased G4 15-29 Severely decreased G5 <15 Kidney failure *Relative to young adult level. In the absence of evidence of kidney damage, neither GFR category G1 nor G2 fulfill the criteria for CKD. The CKD-EPI equation is validated in individuals 18 years of age and older. Currently the best equation for estimating glomerular filtration rate (GFR) from serum creatinine in children is the Bedside Alvarez equation. It is less accurate in patients with extremes of muscle mass, restriction of dietary protein, ingestion of creatine, extra-renal metabolism of creatinine, or treatment with medications that affect renal tubular creatinine secretion. Free PSA/Total PSA [Mass fraction] 7.5 g/dL 6.3 - 8.2 g/dL [facility] Work Phone: Glucose [Mass/Vol] 97 mg/dL 70 - 100 mg/dL [facility] Work Phone: Potassium [Moles/Vol] 4.6 mmol/L 3.5 - 5.1 mmol/L [facility] Work Phone: Sodium [Moles/Vol] 141 mmol/L 135 - 145 mmol/L [facility] Work Phone: Urea nitrogen (BldV) [Mass/Vol] 15 mg/dL 7 - 17 mg/dL [facility] Work Phone: D-Dimer, Innovanceon 022 D-Dimer, Innovance < 0.19 Normal <0.19-0.50 [facility] Comment on above: Result Comment: Inno marie D-Dimer values of <0.50 mg/L FEU can be used in combination with a pre-test probability model (e.g. Well's) to exclude pulmonary embolism (PE) disease, as well as an aid in the diagnosis of deep vein thrombosis (DVT). Performed By: #### T ROPN, HEMDF, DDI2, LIPA4, CMP3 ####[place] [address] [place] [address] D-Dimer, Quantitativeon D-Dimer, Quant <0.19 <0.19 - 0.50 mg/L [facility] Work Phone: Comment on above: Innovance D-Dimer va lues of <0.50 mg/L FEU can be used in combination with a pre-test probability model (e.g. Well's) to exclude pulmonary embolism (PE) disease, as well as an aid in the diagnosis of deep vein thrombosis (DVT). ED Provider Noteon 2 ED Provider Note [facility] EMERGENCY DEPARTMENT ENCOUNTER Pt Name: Cortney Acosta Birthdate 1955 Date of evaluation: 02/23/2022 Provider: Tonio Yo MD CHIEF COMPLAINT Chief Complaint Patient presents with Back Pain Dizziness HISTORY OF PRESENT ILLNESS (Location/Symptom, Timing/Onset, Context/Setting, Quality, Duration, Modifying Factors, Severity) Note limiting factors. I wore a [employer]iate Personal Protective Equipment. HPI Cortney Acosta is a 66 y.o. male who presents to the emergency department upper back pain for about a month. Patient and family tell me this started before 23 January. No known injury or trauma. Is been particularly bad over the past week, he says he has been essentially bedbound much of the day because of debilitating pain. It is worse with certain positions and movements, better in other positions. It radiates into his neck. Rarely radiates to his chest. Today felt very lightheaded and dizzy because of the pain. No real shortness of breath. No weakness or numbness in the arms or legs. No trauma. No fever. Patient to have hip replacement surgery next week. He called his orthopedic provider today with the above symptoms and was referred to the ER. Nursing Notes were reviewed. REVIEW OF SYSTEMS (2+ for level 4; 10+ for level 5) Review of Systems Cardiovascular: Positive for chest pain (Rare). Musculoskeletal: Hip pain, upper back pain. Neurological: Positive for light-headedness. All other systems reviewed and are negative. PAST MEDICAL HISTORY Past Medical History: Diagnosis Date Arthritis Degenerative joint disease of right hip Hypertension SURGICAL HISTORY Past Surgical History: Procedure Laterality Date CARPAL TUNNEL RELEASE Right 20 years ago COLONOSCOPY ENDOSCOPY, COLON, DIAGNOSTIC CURRENT MEDICATIONS Discharge Medication List as of 02/23/2022 6:32 PM CONTINUE these medications which have NOT CHANGED Details losartan (COZAAR) 50 MG tablet Take 1 tablet by mouth in the morning., Disp-30 tablet, R-1Normal meloxicam (MOBIC) 15 MG tablet Take 1 tablet by mouth in the morning., Disp-30 tablet, R-1Normal hydrOXYzine HCl (ATARAX) 25 MG tablet Take 1 tablet by mouth every 8 hours as needed for Itching, Disp-30 tablet, R-0Normal ibuprofen (ADVIL;MOTRIN) 200 MG tablet Take 200 mg by mouth every 6 hours as needed for PainHistorical Med acetaminophen (TYLENOL) 500 MG tablet Take 1,000 mg by mouth every 6 hours as needed for PainHistorical Med ALLERGIES Penicillins FAMILY HISTORY Family History Problem Relation Age of Onset Emphysema Mother Cancer Father SOCIAL HISTORY Social History Socioeconomic History Marital status: Tobacco Use Smoking status: Never Smokeless tobacco: Current Types: Chew Vaping Use Vaping Use: Never used Substance and Sexual Activity Alcohol use: Yes Alcohol/week: 2.0 standard drinks Types: 2 Cans of beer per week Comment: occasional/social Drug use: No Sexual activity: Yes Partners: Female Social Determinants of Health Financial Resource Strain: Low Risk Difficulty of Paying Living Expenses: Not hard at all Food Insecurity: No Food Insecurity Worried About Running Out of Food in the Last Year: Never true Ran Out of Food in the Last Year: Never true Transportation Needs: No Transportation Needs Lack of Transportation (Medical): No Lack of Transportation (Non-Medical): No SCREENINGS [place] Coma Scale Eye Opening: Spontaneous Best Verbal Response: Oriented Best Motor Response: Obeys commands [place] Coma Scale Score: 15 PHYSICAL EXAM (up to 7 for level 4, 8 or more for level 5) ED Triage Vitals [02/23/22 1415] BP Temp Temp Source Heart Rate Resp SpO2 Height Weight (!) 147/89 (!) 96 ?F (35.6 ?C) Temporal 65 18 98 % -- 145 lb (65.8 kg) Physical Exam Constitutional: General: He is not in acute distress. Appearance: He is not ill-appearing. HENT: Head: Normocephalic and atraumatic. Neck: Comments: Tenderness in the paraspinal muscles bilateral, in the distribution of the trapezius. Cardiovascular: Rate and Rhythm: Normal rate and regular rhythm. Comments: Radial pulses present and symmetric Pulmonary: Effort: Pulmonary effort is normal. Breath sounds: Normal breath sounds. Chest: Chest wall: No tenderness. Abdominal: General: There is no distension. Palpations: Abdomen is soft. Tenderness: There is no abdominal tenderness. There is no guarding. Skin: General: Skin is warm and dry. Neurological: General: No focal deficit present. Mental Status: He is alert and oriented to person, place, and time. DIAGNOSTIC RESULTS EKG (Per Emergency Physician): Sinus rhythm 60 bpm. No ischemic changes. No dysrhythmia. RADIOLOGY (Per Emergency Physician): Chest x-ray per radiologist Interpretation per the Radiologist below, if available at the time of this note: XR CHEST (2 VW) Result Date: 02/23/2022 Patient Name (more content not included)... 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1955 Requested By: SCOTTIE PAULINO Order Number: [id number] Reading MD: Tonio Yo Measurements Intervals [place] Rate: 60 P: 76 PA: 144 QRS: 67 QRSD: 84 T: 55 QT: 388 QTc: 388 Interpretive Statements SINUS RHYTHM Compared to ECG 01/23/2022 10:58:37 No significant changes Electronically Signed On 02-23-2022 16:30:59 EDT by Tonio Yo [facility] Tonio Yo MD - 02/23/2022 [facility] Test Date: 2022-02-23 Pat Name: CORTNEY ACOSTA Department: 2AED Room: Gender: M [employer]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1955 Requested By: SCOTTIE PAULINO Order Number: [id number] Reading MD: Tonio Yo Measurements Intervals [place] Rate: 60 P: 76 PA: 144 QRS: 67 QRSD: 84 T: 55 QT: 388 QTc: 388 Interpretive Statements SINUS RHYTHM Compared to ECG 01/23/2022 10:58:37 No significant changes Electronically Signed On 02-23-2022 16:30:59 EDT by Tonio Yo [facility] Work Phone: [facility] Work Phone: Hemogram w/ Autodiffon 02-23 Abs Baso Cnt 0.0 10*3/uL Normal 0.0-0.2 [facility] Comment on above: Performed By: #### T SARAN, HEMDF, DDI2, LIPA4, CMP3 #### [facility] [address] [place] [address] Abs Neutrophile Cnt 3.7 10*3/uL Normal 1.8-7.0 [facility] Comment on above: Performed By: #### T SARAN, HEMDF, DDI2, LIPA4, CMP3 #### [facility] [address] [place] [address] Basophils/100 WBC (Bld) 0.8 % Normal 0.0-2.0 S [facility] Comment on above: Performed By: #### T ROPN, HEMDF, DDI2, LIPA4, CMP3 #### [facility] [address] [place] [address] Eosinophils (Bld) [#/Vol] 0.0 10*3/uL Normal 0.0-0.5 [facility] Comment on above: Performed By: #### T ROPN, HEMDF, DDI2, LIPA4, CMP3 #### [facility] [address] [place] [address] Eosinophils/100 WBC (Bld) 0.5 % Low 1.0-6.0 [facility] Comment on above: Performed By: #### T ROPN, HEMDF, DDI2, LIPA4, CMP3 #### [facility] [address] [place] [address] Erythrocyte distribution width (RBC) [Ratio] 13.6 % Normal 11.5-14.5 [facility] Comment on above: Performed By: #### T ROPN, HEMDF, DDI2, LIPA4, CMP3 #### [facility] [facility] [address] [place] [address] Granulocytes/100 WBC (Bld) 62.3 % Normal 40.0-80.0 [facility] Comment on above: Performed By: #### T ROPN, HEMDF, DDI2, LIPA4, CMP3 #### [facility] [address] [place] [address] Hematocrit (Bld) [Volume fraction] 42.8 % Normal 40.0-52.0 [facility] Comment on above: Performed By: #### T ROPN, HEMDF, DDI2, LIPA4, CMP3 #### [facility] [address] [place] [address] Hemoglobin (Bld) [Mass/Vol] 14.4 g/dL Normal 13.0-18.0 [facility] Comment on above: Performed By: #### T ROPN, HEMDF, DDI2, LIPA4, CMP3 #### [facility] [address] [place] [address] Lymphocytes (Bld) [#/Vol] 1.7 10*3/uL Normal 1.0-4.3 [facility] Comment on above: Performed By: #### T ROPN, HEMDF, DDI2, LIPA4, CMP3 #### [facility] [address] [place] [address] Lymphocytes/100 WBC (Bld) 28.3 % Normal 20.0-40.0 [facility] Comment on above: Performed By: #### T ROPN, HEMDF, DDI2, LIPA4, CMP3 #### [facility] [address] [place] [address] MCH (RBC) [Entitic mass] 30.3 pg Normal 26.0-34.0 [facility] Comment on above: Performed By: #### T ROPN, HEMDF, DDI2, LIPA4, CMP3 #### [facility] [address] [place] [address] MCHC 33.7 % Normal 32.0-36.0 [facility] Comment on above: Performed By: #### T ROPN, HEMDF, DDI2, LIPA4, CMP3 #### [facility] [address] [place] [address] MCV (RBC) [Entitic vol] 89.9 fL Normal 80.0-98.0 S [facility] Comment on above: Performed By: #### T ROPN, HEMDF, DDI2, LIPA4, CMP3 #### [facility] [address] [place] [address] Monocytes (Bld) [#/Vol] 0.5 10*3/uL Normal 0.0-0.8 [facility] Comment on above: Performed By: #### T ROPN, HEMDF, DDI2, LIPA4, CMP3 #### [facility] [address] [place] [address] Monocytes/100 WBC (Bld) 8.1 % Normal 2.0-10.0 [facility] Comment on above: Performed By: #### T ROPN, HEMDF, DDI2, LIPA4, CMP3 #### [facility] [address] [place] [address] Platelet mean volume (Bld) [Entitic vol] 6.6 fL Low 7.4-12.4 [facility] Comment on above: Result Comment: MPV is a calculated measurement using platelet volume ratio. Performed By: #### T SARAN, HEMDF, DDI2, LIPA4, CMP3 #### [facility] [address] [place] [address] Platelets (Bld) [#/Vol] 330 10*3/uL Normal 140-440 [facility] Comment on above: Performed By: #### T ROPN, HEMDF, DDI2, LIPA4, CMP3 #### [facility] [address] [place] [address] RBC (Bld) [#/Vol] 4.76 10*6/uL Normal 4.40-5.90 [facility] Comment on above: Performed By: #### T ROPN, HEMDF, DDI2, LIPA4, CMP3 #### [facility] [address] [place] [address] WBC (Bld) [#/Vol] 5.9 10*3/uL Normal 3.6-10.7 [facility] Comment on above: Performed By: #### T SARAN, HEMDF, DDI2, LIPA4, CMP3 #### [facility] [address] [place] [address] Lipaseon 02-23-2022 Lipase [Catalytic activity/Vol] 101 U/L Normal 23-300 [facility] Comment on above: Performed By: #### T SARAN, HEMDF, DDI2, LIPA4, CMP3 ####[facility] [place] [address] Lipase [Catalytic activity/Vol] 101 U/L 23 - 300 U/L [facility] Work Phone: No Panel Informationon 02-23 Test Performed by [facility], [facility] [address] [place], [place] [address] [facility] Work Phone: Troponinon 02-23-2022 Troponin I.cardiac [Mass/Vol] ng/mL 0 - 0.034 ng/mL [facility] Work Phone: Comment on above: . Test Performed by [facility], [address] [place], [place] [address] [facility] Work Phone: Troponin Ion 02-23-2022 Troponin I.cardiac [Mass/Vol] ng/mL Normal 0.000-0.034 [facility] Comment on above: Result Comment: . Performed By: #### T ROPN, HEMDF, DDI2, LIPA4, CMP3 ####[facility] [place] [address] XR CHEST (2 VW)on 02-23-2022 Patient Name: CORTNEY ACOSTA Diagnostic Radiology ACCESSION EXAM DATE/TIME PROCEDURE ORDERING PROVIDER [id number] 02/23/2022 16:14 EDT CR Chest PA & LAT MD YO JASON T CPT code 07473 Reason For Exam (CR Chest PA & LAT) Upper back pain Report Examination: PA And Lateral Chest. Comparison: None. Reason For Study: Upper back pain. Support Devices: None. Findings/Interpretation : 1. Lungs are hyperexpanded which may be seen with emphysema or asthma. 2. No evidence of acute chest pathology. Report Dictated on --- Final --- Dictating Physician: MD MORELOS B NELSON Signed Date and Time: 02/23/2022 4:27 pm Signed by: MD MORELOS B NELSON Transcribed Date and Time: 02/23/2022 4:[address] [facility] Duong Delatorre M D - 02/23/2022 Patient Name: CORTNEY ACOSTA Diagnostic Radiology ACCESSION EXAM DATE/TIME PROCEDURE ORDERING PROVIDER [id number] 02/23/2022 16:14 EDT CR Chest PA & LAT MD YO JASON T CPT code 60515 Reason For Exam (CR Chest PA & LAT) Upper back pain Report Examination: PA And Lateral Chest. Comparison: None. Reason For Study: Upper back pain. Support Devices: None. Findings/Interpretation : 1. Lungs are hyperexpanded which may be seen with emphysema or asthma. 2. No evidence of acute chest pathology. Report Dictated on --- Final --- Dictating Physician: MD MORELOS B NELSON Signed Date and Time: 02/23/2022 4:27 pm Signed by: MD MORELOS B NELSON Transcribed Date and Time: 02/23/2022 4:28 [facility] Work Phone: Radiology Study observation (narrative) [facility] Work Phone: XR CHEST (2 VW)Ordered By: Piedad Morelos on 02-23-2022 [facility] Work Phone: CBCOrdered By: Paula munoz on 02-14-2022 Hematocrit (Bld) [Volume fraction] 40.0 % 40 - 52 % [facility] Work Phone: Hemoglobin (Bld) [Mass/Vol] 13.7 g/dL 13 - 18 g/dL [facility] Work Phone: Interpretation and review of laboratory results Abnormal [facility] Work Phone: MCH (RBC) [Entitic mass] 30.8 pg 26 - 34 pg [facility] Work Phone: MCHC (RBC) [Mass/Vol] 34.3 % 32 - 36 % [facility] Work Phone: MCV (RBC) [Entitic vol] 89.9 fL 80 - 98 fL S [facility] Work Phone: Platelet distribution width (Bld) [Ratio] 13.4 % 11.5 - 14.5 % [facility] Work Phone: Platelet mean volume (Bld) [Entitic vol] 6.8 fL Low 7.4 - 12.4 fL [facility] Work Phone: Comment on above: MPV is a calculated measurement using platelet volume ratio. Platelets (Bld) [#/Vol] 284 10*3/uL 140 - 440 10*3/uL [facility] Work Phone: RBC (Bld) [#/Vol] 4.44 10*6/uL 4.4 - 5.9 10*6/uL [facility] Work Phone: WBC (Bld) [#/Vol] 4.5 10*3/uL 3.6 - 10.7 10*3/uL [facility] Work Phone: [facility] Work Phone: CBCon 02-14-2022 Test Performed by [facility], [address] [place] [address] [facility] Hemogramon 02-14-2022 Erythrocyte distribution width (RBC) [Ratio] 13.4 % Normal 11.5-14.5 [facility] Comment on above: Performed By: #### P T, HEMOG #### [facility] [address] [place] [address] Hematocrit (Bld) [Volume fraction] 40.0 % Normal 40.0-52.0 [facility] Comment on above: Performed By: #### P T, HEMOG #### [facility] [address] [place] [address] Hemoglobin (Bld) [Mass/Vol] 13.7 g/dL Normal 13.0-18.0 [facility] Comment on above: Performed By: #### P T, HEMOG #### [facility] [address] [place] [address] MCH (RBC) [Entitic mass] 30.8 pg Normal 26.0-34.0 [facility] Comment on above: Performed By: #### P T, HEMOG #### [facility] [address] [place] [address] MCHC 34.3 % Normal 32.0-36.0 [facility] Comment on above: Performed By: #### P T, HEMOG #### [facility] [address] [place] [address] MCV (RBC) [Entitic vol] 89.9 fL Normal 80.0-98.0 [facility] Comment on above: Performed By: #### P T, HEMOG #### [facility] [address] [place] [address] Platelet mean volume (Bld) [Entitic vol] 6.8 fL Low 7.4-12.4 [facility] Comment on above: Result Comment: MPV is a calculated measurement using platelet volume ratio. Performed By: #### P T, HEMOG #### [facility] [address] [place] [address] Platelets (Bld) [#/Vol] 284 10*3/uL Normal 140-440 [facility] Comment on above: Performed By: #### P T, HEMOG #### [facility] [address] [place] [address] RBC (Bld) [#/Vol] 4.44 10*6/uL Normal 4.40-5.90 [facility] Comment on above: Performed By: #### P T, HEMOG #### [facility] [address] [place] [address] WBC (Bld) [#/Vol] 4.5 10*3/uL Normal 3.6-10.7 [facility] Comment on above: Performed By: #### P T, HEMOG #### [facility] [address] [place] [address] Prothrombin Timeon INR 1.0 Normal 0.9-1.1 [facility] Comment on above: Result Comment: Angelo mmended Anticoagulant Therapy: SEE BELOW ----- INR of 2.0 - 3.0 : - Prophylaxis of Venous Thrombosis (high-risk surgery) - Treatment of Venous Thrombosis - Treatment of Pulmonary Embolism (Includes tissue heart valves, Acute Myocardial Infarction to prevent systemic embolism, Valvular Heart Disease, and Atrial Fibrillation) ----- INR of 2.5 - 3.5 : - Mechanical Prosthetic Valves (high risk) - If oral anticoagulant therapy is used to prevent Myocardial Infarction Performed By: #### P T, HEMOG #### [facility] [address] [place] [address] PT Coag (PPP) [Time] 10.9 s Normal 9.0-12.0 [facility] Comment on above: Result Comment: . Performed By: #### P T, HEMOG #### [facility] [address] [place] [address] Protime-INRon 02-14-2022 INR Coag (Bld) [Relative time] 1.0 {INR} [facility] Work Phone: Comment on above: Recommended Anticoag ulant Therapy: SEE BELOW ----- INR of 2.0 - 3.0 : - Prophylaxis of Venous Thrombosis (high-risk surgery) - Treatment of Venous Thrombosis - Treatment of Pulmonary Embolism (Includes tissue heart valves, Acute Myocardial Infarction to prevent systemic embolism, Valvular Heart Disease, and Atrial Fibrillation) ----- INR of 2.5 - 3.5 : - Mechanical Prosthetic Valves (high risk) - If oral anticoagulant therapy is used to prevent Myocardial Infarction PT Coag (PPP) [Time] 10.9 s 9 - 12 s [facility] Work Phone: Comment on above: . Test Performed by [facility], [address] [place], [place] [address] [facility] Work Phone: CR Spine Cervical 2 or 3 Vie wson 01-27-2022 CR Spine Cervical 2 or 3 Views Patient Name: CORTNEY ACOSTA Diagnostic Radiology ACCESSION EXAM DATE/TIME PROCEDURE ORDERING PROVIDER [id number] 01/27/2022 13:45 EDT CR Spine Cervical 2 or 3 WESTON HENAO S Views CPT code 39897 Reason For Exam (CR Spine Cervical 2 or 3 Views) NECK PAIN Report CERVICAL SPINE, TWO VIEWS: INDICATION: Neck pain COMPARISON: No previous studies are available for comparison. TECHNIQUE: AP, odontoid and lateral views are submitted for interpretation. FINDINGS: Alignment, curvature and segmentation of the cervical spine are within normal limits. The prevertebral soft tissues are intact. There is no evidence of acute fracture, dislocation or subluxation. Disc space height is well-preserved. The AP view is unremarkable. IMPRESSION: No acute osseous abnormality of the cervical spine. If there is a high index of clinical concern for osseous injury, CT of the cervical spine may be of benefit. Report Dictated on Final Dictating Physician: DO GARCÍA ALFRED Signed Date and Time: 01/27/2022 4:33 pm Signed by: DO GARCÍA ALFRED Transcribed Date and Time: 01/27/2022 4:34 [facility] XR CERVICAL SPINE (2-3 VIEWS )on 01-27-2022 Patient Name: CORTNEY ACOSTA Diagnostic Radiology ACCESSION EXAM DATE/TIME PROCEDURE ORDERING PROVIDER [id number] 01/27/2022 13:45 EDT CR Spine Cervical 2 or 3 HENAO, WESTON S Views CPT code 90127 Reason For Exam (CR Spine Cervical 2 or 3 Views) NECK PAIN Report CERVICAL SPINE, TWO VIEWS: INDICATION: Neck pain COMPARISON: No previous studies are available for comparison. TECHNIQUE: AP, odontoid and lateral views are submitted for interpretation. FINDINGS: Alignment, curvature and segmentation of the cervical spine are within normal limits. The prevertebral soft tissues are intact. There is no evidence of acute fracture, dislocation or subluxation. Disc space height is well-preserved. The AP view is unremarkable. IMPRESSION: No acute osseous abnormality of the cervical spine. If there is a high index of clinical concern for osseous injury, CT of the cervical spine may be of benefit. Report Dictated on --- Final --- Dictating Physician: DO GARCÍA ALFRED Signed Date and Time: 01/27/2022 4:33 pm Signed by: DO GARCÍA ALFRED Transcribed Date and Time: 01/27/2022 4:34 [facility] Ronal García DO - 01/27/2022 Patient Name: CORTNEY ACOSTA Diagnostic Radiology ACCESSION EXAM DATE/TIME PROCEDURE ORDERING PROVIDER [id number] 01/27/2022 13:45 EDT CR Spine Cervical 2 or 3 HENAO, WESTON S Views CPT code 16844 Reason For Exam (CR Spine Cervical 2 or 3 Views) NECK PAIN Report CERVICAL SPINE, TWO VIEWS: INDICATION: Neck pain COMPARISON: No previous studies are available for comparison. TECHNIQUE: AP, odontoid and lateral views are submitted for interpretation. FINDINGS: Alignment, curvature and segmentation of the cervical spine are within normal limits. The prevertebral soft tissues are intact. There is no evidence of acute fracture, dislocation or subluxation. Disc space height is well-preserved. The AP view is unremarkable. IMPRESSION: No acute osseous abnormality of the cervical spine. If there is a high index of clinical concern for osseous injury, CT of the cervical spine may be of benefit. Report Dictated on --- Final --- Dictating Physician: DO GARCÍA ALFRED Signed Date and Time: 01/27/2022 4:33 pm Signed by: DO GARCÍA ALFRED Transcribed Date and Time: 01/27/2022 4:34 [facility] Work Phone: Radiology Study observation (narrative) [facility] Work Phone: XR CERVICAL SPINE (2-3 VIEWS )Ordered By: Ronal García on 01-27-2022 [facility] Work Phone: Basic Metabolic Panelon 07-0 Calcium [Mass/Vol] 9.0 mg/dL Normal 8.4-10.4 [facility] Comment on above: Performed By: #### L FT3, TROPN, BMP3 #### [facility] [address] [place] [address] Glucose [Mass/Vol] 107 mg/dL High 70-100 [facility] Comment on above: Performed By: #### L FT3, TROPN, BMP3 #### [facility] [address] [place] [address] Urea nitrogen [Mass/Vol] 17 mg/dL Normal 7-17 [facility] Comment on above: Performed By: #### L FT3, TROPN, BMP3 #### [facility] [address] [place] [address] Anion gap [Moles/Vol] 3 mmol/L Normal 3-13 [facility] Comment on above: Performed By: #### L FT3, TROPN, BMP3 #### [facility] [address] [place] [address] CO2 [Moles/Vol] 31 mmol/L High 22-30 [facility] Comment on above: Performed By: #### L FT3, TROPN, BMP3 #### [facility] [address] [place] [address] Creatinine [Mass/Vol] 0.74 mg/dL Normal 0.52-1.25 [facility] Comment on above: Performed By: #### L FT3CAMILLEN BMP3 #### [facility] [address] [place] [address] eGFR OTHER > 90.0 Normal >60 [facility] Comment on above: Result Comment: KDIG O guidelines provide the following GFR categories: Stage GFR(ml/min/1.73 m2) Terms G1 >=90 Normal or high G2 60-89 Mildly decreased* G3a 45-59 Mildly to moderately decreased G3b 30-44 Moderately to severely decreased G4 15-29 Severely decreased G5 <15 Kidney failure *Relative to young adult level. In the absence of evidence of kidney damage, neither GFR category G1 nor G2 fulfill the criteria for CKD. The CKD-EPI equation is validated in individuals 18 years of age and older. Currently the best equation for estimating glomerular filtration rate (GFR) from serum creatinine in children is the Bedside Alvarez equation. It is less accurate in patients with extremes of muscle mass, restriction of dietary protein, ingestion of creatine, extra-renal metabolism of creatinine, or treatment with medications that affect renal tubular creatinine secretion. Performed By: #### L FTWalter TROPN BMP3 #### [facility] [address] [place] [address] GFR/1.73 sq M.predicted among blacks MDRD (S/P/Bld) [Vol rate/Area] mL/min/{1.73_m2} Normal >60 [facility] Comment on above: Performed By: #### L FT3CAMILLEN, BMP3 #### [facility] [address] [place] [address] Potassium [Moles/Vol] 4.2 mmol/L Normal 3.5-5.1 [facility] Comment on above: Performed By: #### L FT3 TROPN, BMP3 #### [facility] [address] [place] [address] Sodium [Moles/Vol] 138 mmol/L Normal 135-145 [facility] Comment on above: Performed By: #### L FT3 TROPN, BMP3 #### [facility] [address] [place] [address] Chloride [Moles/Vol] 103 mmol/L Normal 98-107 [facility] Comment on above: Performed By: #### L RICHARD3, MELA, NEW3 #### [facility] [address] [place] [address] ED Provider Noteon ED Provider Note [facility] [place] [facility] EMERGENCY DEPARTMENT ENCOUNTER Pt Name: Cortney Acosta Birthdate 1955 Date of evaluation: 01/23/2022 Provider: Scottie Paulino MD CHIEF COMPLAINT Chief Complaint Patient presents with ? Hypertension HISTORY OF PRESENT ILLNESS (Location/Symptom, Timing/Onset, Context/Setting, Quality, Duration, Modifying Factors, Severity) Note limiting factors. I wore a kn95 mask for the entirety of this encounter. HPI Cortney Acosta is a 66 y.o. male who presents to the emergency department for evaluation of hypertension since yesterday. Patient states he had been feeling fairly good throughout the day. He sat in a hot tub style small pool with his for couple of hours. He states the water temperature was about 90 degrees. He states when he got out of the tub/pool he felt "ill". Denies any nausea or specific pain but states that he felt like he was under the weather. He went in the house and tried to lay down but felt unwell so he got back up. Took a COVIDtest at home which was negative. Decided to go to the [facility] to have his blood pressure checked being that she has a blood pressure cuff. He states that she used an automated wrist blood pressure cuff on him and his systolic was in the 190s, elevated diastolic as well although he cannot remember the number. He states they checked his blood pressure multiple times at approximate 10 to 20-minute intervals and it was elevated each time. Patient woke up today and checked his blood pressure again and though not as highly elevated as yesterday, it was elevated today so he went to the fire station near his home who also measured an elevated manual blood pressure and told him to come to the ED because it was immediately dangerous. He denies any chest pain, shortness of breath. He does report some pain in the right hip and also in the neck which she states is from long-term [id number] hip arthritis for which she is currently scheduled for a total hip replacement. Denies any new pain or injuries. No longer feels ill like he did yesterday. Nursing Notes were reviewed. REVIEW OF SYSTEMS (2+ for level 4; 10+ for level 5) Review of Systems All other systems reviewed and are negative. PAST MEDICAL HISTORY History reviewed. No pertinent past medical history. SURGICAL HISTORY Past Surgical History: Procedure Laterality Date ? CARPAL TUNNEL RELEASE Right 20 years ago CURRENT MEDICATIONS Previous Medications ACETAMINOPHEN (TYLENOL) 500 MG TABLET Take 500 mg by mouth every 6 hours as needed for Pain DICLOFENAC (VOLTAREN) 50 MG EC TABLET Take 1 tablet by mouth 2 times daily (with meals) ALLERGIES Penicillins FAMILY HISTORY Family History Problem Relation Age of Onset ? Emphysema Mother ? Cancer Father SOCIAL HISTORY Social History Socioeconomic History ? Marital status: Spouse name: None ? Number of children: None ? Years of education: None ? Highest education level: None Occupational History ? None Tobacco Use ? Smoking status: Never Smoker ? Smokeless tobacco: Current User Types: Chew Vaping Use ? Vaping Use: Never used Substance and Sexual Activity ? Alcohol use: Yes Comment: occasional/social ? Drug use: No ? Sexual activity: Yes Partners: Female Other Topics Concern ? None Social History Narrative ? None Social Determinants of Health Financial Resource Strain: ? Difficulty of Paying Living Expenses: Not on file Food Insecurity: ? Worried About Running Out of Food in the Last Year: Not on file ? Ran Out of Food in the Last Year: Not on file Transportation Needs: ? Lack of Transportation (Medical): Not on file ? Lack of Transportation (Non-Medical): Not on file Physical Activity: ? Days of Exercise per Week: Not on file ? Minutes of Exercise per Session: Not on file Stress: ? Feeling of Stress : Not on file Social Connections: ? Frequency of Communication with Friends and Family: Not on file ? Frequency of Social Gatherings with Friends and Family: Not on file ? Attends Zoroastrian Services: Not on file ? Active Member of Clubs or Organizations: Not on file ? Attends Club or Organization Meetings: Not on file ? Marital Status: Not on file Intimate Partner Violence: ? Fear of Current or Ex-Partner: Not on file ? Emotionally Abused: Not on file ? Physically Abused: Not on file ? Sexually Abused: Not on file Housing Stability: ? Unable to Pay for Housing in the Last Year: Not on file ? Number of Places Lived in the Last Year: Not on file ? Unstable Housing in the Last Year: Not on file SCREENINGS [place] Coma Scale Eye Opening: Spontaneous Best Verbal Response: Oriented Best Motor Response: Obeys commands [place] Coma Scale Score: 15 PHYSICAL EXAM (up to 7 for level 4, 8 or more for level 5) ED Triage Vitals [01/23/22 1012] BP Temp Temp Source Heart Rate Resp SpO2 Height Weight (!) 158/116 98.7 (more content not included)... Normal [facility] Hepatic Functionon 2 ALP [Catalytic activity/Vol] 63 U/L Normal 38-126 [facility] Comment on above: Performed By: #### L FT3, TROPN, BMP3 #### [facility] [address] [place] [address] ALT [Catalytic activity/Vol] 19 U/L Normal 0-49 [facility] Comment on above: Result Comment: The ALT test is performed by an updated assay method. Please note that the reference intervals have been changed and are now sex specific. Performed By: #### L FT3, TROPN, BMP3 #### [facility] [address] [place] [address] AST [Catalytic activity/Vol] 30 U/L Normal 15-46 [facility] Comment on above: Performed By: #### L FT3, TROPN, BMP3 #### [facility] [address] [place] [address] Bilirubin [Mass/Vol] 0.8 mg/dL Normal 0.2-1.3 [facility] Comment on above: Performed By: #### L FT3, TROPN, BMP3 #### [facility] [address] [place] [address] Bilirubin.indirect [Mass/Vol] 0.0 mg/dL Normal 0.0-0.3 [facility] Comment on above: Performed By: #### L FT3, TROPN, BMP3 #### [facility] [address] [place] [address] Protein [Mass/Vol] 7.5 g/dL Normal 6.3-8.2 [facility] Comment on above: Performed By: #### L FT3, TROPN, BMP3 #### [facility] [address] [place] [address] Albumin [Mass/Vol] 4.3 g/dL Normal 3.5-5.0 [facility] Comment on above: Performed By: #### L FT3, TROPN, BMP3 #### [facility] [address] [place] [address] Troponin Ion 01-23-2022 Troponin I.cardiac [Mass/Vol] ng/mL Normal 0.000-0.034 [facility] Comment on above: Result Comment: . Performed By: #### L FT3, TROPN, BMP3 #### [facility] [address] [place] [address] CR Hip w/ Pelvis 2 or 3 View s [place] 12-12-2021 CR Hip w/ Pelvis 2 or 3 Views Right Patient Name: CORTNEY ACOSTA Diagnostic Radiology ACCESSION EXAM DATE/TIME PROCEDURE ORDERING PROVIDER [id number] 12/12/2021 15:35 EDT CR Hip w/ Pelvis 2 or 3 WESTON HENAO S Views Right n CPT code 22782 Reason For Exam (CR Hip w/ Pelvis 2 or 3 Views Right n) right hip pain osteoarthritis Report RIGHT HIP and PELVIS: INDICATION: Right hip pain COMPARISON: 04/01/2019 A frontal view of the pelvis and frontal and frog leg views of the right hip were obtained. The bone density appears normal. There are no fractures or dislocations. Arthritic changes are seen involving both hips, right greater than left with joint space narrowing and marginal spurring. In addition there is a mild degree of flattening of the contour of the right femoral head and subchondral cystic changes. There are no significant soft tissue abnormalities. IMPRESSION: Arthritic changes of the hips, right greater than left. No significant interval change. Report Dictated on Final Dictating Physician: DO GARCÍA ALFRED Signed Date and Time: 12/14/2021 10:08 am Signed by: DO GARCÍA ALFRED Transcribed Date and Time: 12/14/2021 10:09 Normal [facility] XR RIBS RIGHT INCLUDE CHEST (MIN 3 VIEWS)on 05-05-2019 Patient Name: CORTNEY ACOSTAN: [id number] ---Diagnostic Radiology--- Exam Date/Time 05/05/2019 09:45:00 EDT Exam CR Ribs w/ PA Chest Right Ordering Physician WESTON HENAO Accession Number [id number] CPT4 Codes 40456 () Reason For Exam Other chest pain Report Clinical indication: Right-sided chest pain. COMPARISON: None. TECHNIQUE: AP and oblique views were obtained of the right chest. FINDINGS: The lungs are clear with no acute infiltrate or effusion. The heart size and mediastinal contours are normal. Trachea is midline. No pneumothorax. The osseous structures are unremarkable. There is no evidence of a right-sided rib fracture. IMPRESSION: No evidence of right-sided rib fracture. Lungs clear with no acute cardiopulmonary disease process. Report Dictated on Workstation: Dr. [id number] --- Final --- Dictating Physician: MD OBRIEN YUN ROBERT Signed Date and Time: 05/05/2019 4:12 pm Signed by: MD OBRIEN YUN ROBERT Transcribed Date and Time: 05/05/2019 4:13 [place], [place] [facility] 05/05/2019 4:13 PM EDT Patient Name: CORTNEY ACOSTA ---Diagnostic Radiology--- Exam Date/Time 05/05/2019 09:45:00 EDT Exam CR Ribs w/ PA Chest Right Ordering Physician HENAOWESTON MEADE Accession Number [id number] CPT4 Codes 28542 () Reason For Exam Other chest pain Report Clinical indication: Right-sided chest pain. COMPARISON: None. TECHNIQUE: AP and oblique views were obtained of the right chest. FINDINGS: The lungs are clear with no acute infiltrate or effusion. The heart size and mediastinal contours are normal. Trachea is midline. No pneumothorax. The osseous structures are unremarkable. There is no evidence of a right-sided rib fracture. IMPRESSION: No evidence of right-sided rib fracture. Lungs clear with no acute cardiopulmonary disease process. Report Dictated on Workstation: [id number] --- Final --- Dictating Physician: MD OBRIEN YUN ROBERT Signed Date and Time: 05/05/2019 4:12 pm Signed by: MD OBRIEN YUN ROBERT Transcribed Date and Time: 05/05/2019 4:13 [place] XR PELVIS (1-2 VW)on 019 Patient Name: CORTNEY ACOSTA ---Diagnostic Radiology--- Exam Date/Time 04/01/2019 11:41:00 EDT Exam CR Pelvis 1 or 2 Views Ordering Physician WESTON HENAO Accession Number [id number] CPT4 Codes 39187 () Reason For Exam Other specified enthesopathies of right lower limb, excluding foot Report PELVIS SINGLE VIEW CLINICAL INDICATION: Other specified enthesopathies of right lower limb, excluding foot TECHNIQUE: Single, AP view of the pelvis. COMPARISON: None. FINDINGS: No acute fracture or dislocation. Considerable, concentric joint space narrowing, subchondral sclerosis and marginal spurring in the right hip joint, with subchondral cystic change and flattening of right superior femoral head. Less severe degenerative change in the left hip joint. Soft tissues grossly unremarkable. IMPRESSION: 1. No acute osseous abnormality. 2. Degenerative joint disease, right much greater than left. Report Dictated on --- Final --- Dictating Physician: MD TRIPATHI WENDELL Signed Date and Time: 04/01/2019 2:50 pm Signed by: MD TRIPATHI WENDELL Transcribed Date and Time: 04/01/2019 2:51 [place], [place], [facility] Incoming Radiology Results From [facility] - 04/01/2019 2:51 PM EDT Patient Name: CORTNEY ACOSTA ---Diagnostic Radiology--- Exam Date/Time 04/01/2019 11:41:00 EDT Exam CR Pelvis 1 or 2 Views Ordering Physician WESTON HENAO Accession Number [id number] CPT4 Codes 31093 () Reason For Exam Other specified enthesopathies of right lower limb, excluding foot Report PELVIS SINGLE VIEW CLINICAL INDICATION: Other specified enthesopathies of right lower limb, excluding foot TECHNIQUE: Single, AP view of the pelvis. COMPARISON: None. FINDINGS: No acute fracture or dislocation. Considerable, concentric joint space narrowing, subchondral sclerosis and marginal spurring in the right hip joint, with subchondral cystic change and flattening of right superior femoral head. Less severe degenerative change in the left hip joint. Soft tissues grossly unremarkable. IMPRESSION: 1. No acute osseous abnormality. 2. Degenerative joint disease, right much greater than left. Report Dictated on --- Final --- Dictating Physician: MD TRIPATHI WENDELL Signed Date and Time: 04/01/2019 2:50 pm Signed by: MD TRIPATHI WENDELL Transcribed Date and Time: 04/01/2019 2:51 [place], [place] Vital Signs Date Time Vital Sign Value Performing Clinician Facility 04-06-2025 09:59-0400 Body mass index (BMI) [Ratio] 24.25 kg/m2 Ilan Bridenthal HOME MANAGER - KEY BED INSTALLER Work Phone: [facility] 04-06-2025 09:59-0400 Body temperature 99.3 [degF] Ilan Bridenthal HOME MANAGER - KEY BED INSTALLER Work Phone: [facility] 04-06-2025 09:59-0400 Body weight 66.09 kg Ilan Bridenthal HOME MANAGER - KEY BED INSTALLER Work Phone: [facility] 04-06-2025 09:59-0400 Diastolic blood pressure 81 mm[Hg] Ilan Bridenthal HOME MANAGER - KEY BED INSTALLER Work Phone: [facility] 04-06-2025 09:59-0400 Heart rate 89 /min Ilan Bridenthal HOME MANAGER - KEY BED INSTALLER Work Phone: [facility] 04-06-2025 09:59-0400 Respiratory rate 20 /min Ilan Bridenthal HOME MANAGER - KEY BED INSTALLER Work Phone: [facility] 04-06-2025 09:59-0400 SaO2% (BldA) [Mass fraction] 97 % Ilan Bridenthal HOME MANAGER - KEY BED INSTALLER Work Phone: [facility] 04-06-2025 09:59-0400 Systolic blood pressure 131 mm[Hg] Ilan Bridenthal HOME MANAGER - KEY BED INSTALLER Work Phone: [facility] 04-03-2025 15:45-0400 Body temperature 97.7 [degF] Ilan Bridenthal BARKING MACHINE FEEDER-C Work Phone: [facility] 04-03-2025 15:45-0400 Diastolic blood pressure 95 mm[Hg] Ilan Bridenthal BARKING MACHINE FEEDER-C Work Phone: [facility] 04-03-2025 15:45-0400 Heart rate 85 /min Ilan Bridenthal BARKING MACHINE FEEDER-C Work Phone: [facility] 04-03-2025 15:45-0400 Respiratory rate 18 /min Ilan Bridenthal BARKING MACHINE FEEDER-C Work Phone: [facility] 04-03-2025 15:45-0400 SaO2% (BldA) [Mass fraction] 99 % Ilan Bridenthal BARKING MACHINE FEEDER-C Work Phone: [facility] 04-03-2025 15:45-0400 Systolic blood pressure 158 mm[Hg] Ilan Bridenthal BARKING MACHINE FEEDER-C Work Phone: [facility] 04-03-2025 12:50-0400 Body height 165.1 cm Ilan Bridenthal BARKING MACHINE FEEDER-C Work Phone: [facility] 04-03-2025 12:50-0400 Body mass index (BMI) [Ratio] 24 kg/m2 Ilan Bridenthal BARKING MACHINE FEEDER-C Work Phone: [facility] 04-03-2025 12:50-0400 Body weight 65.45 kg Ilan Bridenthal BARKING MACHINE FEEDER-C Work Phone: [facility] 03-31-2025 14:51-0400 Body temperature 98.29 [degF] Manan Packer MD Work Phone: [facility] 03-31-2025 14:51-0400 Body weight 65.9 kg Manan Packer MD Work Phone: [facility] 03-31-2025 14:51-0400 Diastolic blood pressure 80 mm[Hg] Manan Packer MD Work Phone: [facility] 03-31-2025 14:51-0400 Heart rate 80 /min Manan Packer MD Work Phone: [facility] 03-31-2025 14:51-0400 SaO2% (BldA) [Mass fraction] 99 % Manan Packer MD Work Phone: [facility] 03-31-2025 14:51-0400 Systolic blood pressure 134 mm[Hg] Manan Packer MD Work Phone: [facility] 03-24-2025 10:51-0400 Body mass index (BMI) [Ratio] 23.56 kg/m2 Ilan Bridenthal HOME MANAGER - KEY BED INSTALLER Work Phone: [facility] 03-24-2025 10:51-0400 Body temperature 99.3 [degF] Ilan Bridenthal HOME MANAGER - KEY BED INSTALLER Work Phone: [facility] 03-24-2025 10:51-0400 Body weight 64.23 kg Ilan Bridenthal HOME MANAGER - KEY BED INSTALLER Work Phone: [facility] 03-24-2025 10:51-0400 Diastolic blood pressure 85 mm[Hg] Ilan Bridenthal HOME MANAGER - KEY BED INSTALLER Work Phone: [facility] 03-24-2025 10:51-0400 Heart rate 80 /min Ilan Bridenthal HOME MANAGER - KEY BED INSTALLER Work Phone: [facility] 03-24-2025 10:51-0400 Respiratory rate 20 /min Ilan Bridenthal HOME MANAGER - KEY BED INSTALLER Work Phone: [facility] 03-24-2025 10:51-0400 SaO2% (BldA) [Mass fraction] 97 % Ilan Bridenthal HOME MANAGER - KEY BED INSTALLER Work Phone: [facility] 03-24-2025 10:51-0400 Systolic blood pressure 136 mm[Hg] Ilan Bridenthal HOME MANAGER - KEY BED INSTALLER Work Phone: [facility] 03-16-2025 09:59-0400 Diastolic blood pressure 76 mm[Hg] Ilan Bridenthal HOME MANAGER - KEY BED INSTALLER Work Phone: [facility] 03-16-2025 09:59-0400 Systolic blood pressure 146 mm[Hg] Ilan Bridenthal HOME MANAGER - KEY BED INSTALLER Work Phone: [facility] 03-16-2025 09:06-0400 Body mass index (BMI) [Ratio] 22.8 kg/m2 Ilan Bridenthal HOME MANAGER - KEY BED INSTALLER Work Phone: [facility] 03-16-2025 09:06-0400 Body temperature 98.91 [degF] Ilan Bridenthal HOME MANAGER - KEY BED INSTALLER Work Phone: [facility] 03-16-2025 09:06-0400 Body weight 62.14 kg Ilan Bridenthal HOME MANAGER - KEY BED INSTALLER Work Phone: [facility] 03-16-2025 09:06-0400 Heart rate 73 /min Ilan Bridenthal HOME MANAGER - KEY BED INSTALLER Work Phone: [facility] 03-16-2025 09:06-0400 Respiratory rate 18 /min Ilan Bridenthal HOME MANAGER - KEY BED INSTALLER Work Phone: [facility] 03-16-2025 09:06-0400 SaO2% (BldA) [Mass fraction] 97 % Ilan Bridenthal HOME MANAGER - KEY BED INSTALLER Work Phone: [facility] 03-13-2025 08:32-0400 Diastolic blood pressure 77 mm[Hg] Schedule [facility] 03-13-2025 08:32-0400 Heart rate 57 /min Schedule [facility] 03-13-2025 08:32-0400 Systolic blood pressure 136 mm[Hg] Schedule [facility] 03-10-2025 08:37-0400 Diastolic blood pressure 91 mm[Hg] Rosanne Davis HOME MANAGER - KEY BED INSTALLER Work Phone: [facility] 03-10-2025 08:37-0400 Systolic blood pressure 157 mm[Hg] Rsoanne Davis HOME MANAGER - KEY BED INSTALLER Work Phone: [facility] 03-10-2025 08:35-0400 Body height 165.1 cm Rosanne Davis HOME MANAGER - KEY BED INSTALLER Work Phone: [facility] 03-10-2025 08:35-0400 Body mass index (BMI) [Ratio] 23.53 kg/m2 Rosanne Davis HOME MANAGER - KEY BED INSTALLER Work Phone: [facility] 03-10-2025 08:35-0400 Body temperature 97.5 [degF] Rosanne Davis HOME MANAGER - KEY BED INSTALLER Work Phone: [facility] 03-10-2025 08:35-0400 Body weight 64.14 kg Rosanne Davis HOME MANAGER - KEY BED INSTALLER Work Phone: [facility] 03-10-2025 08:35-0400 Heart rate 61 /min Rosanne Davis HOME MANAGER - KEY BED INSTALLER Work Phone: [facility] 03-03-2025 18:24-0400 Diastolic blood pressure 87 mm[Hg] Kavin Westbrook MD Work Phone: [facility] 03-03-2025 18:24-0400 Heart rate 72 /min Kavin Westbrook MD Work Phone: [facility] 03-03-2025 18:24-0400 Respiratory rate 14 /min Kavin Westbrook MD Work Phone: [facility] 03-03-2025 18:24-0400 SaO2% (BldA) [Mass fraction] 98 % Kavin Westbrook MD Work Phone: [facility] 03-03-2025 18:24-0400 Systolic blood pressure 148 mm[Hg] Kavin Westbrook MD Work Phone: [facility] 03-03-2025 15:52-0400 Body height 165.1 cm Kavin Westbrook MD Work Phone: [facility] 03-03-2025 15:52-0400 Body mass index (BMI) [Ratio] 23.13 kg/m2 Kavin Westbrook MD Work Phone: [facility] 03-03-2025 15:52-0400 Body temperature 98.49 [degF] Kavni Westbrook MD Work Phone: [facility] 03-03-2025 15:52-0400 Body weight 63.05 kg Kavin Westbrook MD Work Phone: [facility] 03-02-2025 09:39-0400 Diastolic blood pressure 84 mm[Hg] Yesenia Gent PA Work Phone: [facility] 03-02-2025 09:39-0400 Systolic blood pressure 136 mm[Hg] Yesenia Gent PA Work Phone: [facility] 03-02-2025 09:36-0400 Body height 165.1 cm Yesenia Gent PA Work Phone: [facility] 03-02-2025 09:36-0400 Body mass index (BMI) [Ratio] 23.23 kg/m2 Yesenia Gent PA Work Phone: [facility] 03-02-2025 09:36-0400 Body temperature 98.1 [degF] Yesenia Gent PA Work Phone: [facility] 03-02-2025 09:36-0400 Body weight 63.32 kg Yesenia Gent PA Work Phone: [facility] 03-02-2025 09:36-0400 Heart rate 72 /min Yesenia Gent PA Work Phone: [facility] 02-19-2025 14:30-0400 Diastolic blood pressure 80 mm[Hg] Corona Cool MD Work Phone: [facility] 02-19-2025 14:30-0400 Heart rate 60 /min Corona Cool MD Work Phone: [facility] 02-19-2025 14:30-0400 Respiratory rate 16 /min Corona Cool MD Work Phone: [facility] 02-19-2025 14:30-0400 SaO2% (BldA) [Mass fraction] 100 % Corona Cool MD Work Phone: [facility] 02-19-2025 14:30-0400 Systolic blood pressure 144 mm[Hg] Corona Cool MD Work Phone: [facility] 02-19-2025 14:18-0400 Body temperature 97.2 [degF] Corona Cool MD Work Phone: [facility] 02-19-2025 10:29-0400 Body height 165.1 cm Corona Cool MD Work Phone: [facility] 02-19-2025 10:29-0400 Body mass index (BMI) [Ratio] 22.96 kg/m2 Corona Cool MD Work Phone: [facility] 02-19-2025 10:29-0400 Body weight 62.6 kg Corona Cool MD Work Phone: [facility] 02-18-2025 11:13-0400 Body height 165.1 cm Corona Cool MD Work Phone: [facility] 02-18-2025 11:13-0400 Body mass index (BMI) [Ratio] 23.06 kg/m2 Corona Cool MD Work Phone: [facility] 02-18-2025 11:13-0400 Body temperature 97.7 [degF] Corona Cool MD Work Phone: [facility] 02-18-2025 11:13-0400 Body weight 62.87 kg Corona Cool MD Work Phone: [facility] 02-18-2025 11:13-0400 Diastolic blood pressure 88 mm[Hg] Corona Cool MD Work Phone: [facility] 02-18-2025 11:13-0400 Heart rate 71 /min Corona Cool MD Work Phone: [facility] 02-18-2025 11:13-0400 Systolic blood pressure 132 mm[Hg] Corona Cool MD Work Phone: [facility] 01-27-2025 15:43-0400 Body mass index (BMI) [Ratio] 24.3 kg/m2 Ilan Bridenthal HOME MANAGER - KEY BED INSTALLER Work Phone: [facility] 01-27-2025 15:43-0400 Body weight 66.22 kg Ilan Bridenthal HOME MANAGER - KEY BED INSTALLER Work Phone: [facility] 01-27-2025 15:43-0400 Diastolic blood pressure 78 mm[Hg] Ilan Bridenthal HOME MANAGER - KEY BED INSTALLER Work Phone: [facility] 01-27-2025 15:43-0400 Heart rate 71 /min Ilan Bridenthal HOME MANAGER - KEY BED INSTALLER Work Phone: [facility] 01-27-2025 15:43-0400 Respiratory rate 16 /min Ilan Bridenthal HOME MANAGER - KEY BED INSTALLER Work Phone: [facility] 01-27-2025 15:43-0400 SaO2% (BldA) [Mass fraction] 97 % Ilan Bridenthal HOME MANAGER - KEY BED INSTALLER Work Phone: [facility] 01-27-2025 15:43-0400 Systolic blood pressure 129 mm[Hg] Ilan Bridenthal HOME MANAGER - KEY BED INSTALLER Work Phone: [facility] 01-06-2025 09:43-0400 Body height 165.1 cm Anthony Chamorro MD Work Phone: [facility] 01-06-2025 09:43-0400 Body mass index (BMI) [Ratio] 23.9 kg/m2 Anthony Chamorro MD Work Phone: [facility] 01-06-2025 09:43-0400 Body weight 65.14 kg Anthony Chamorro MD Work Phone: [facility] 01-06-2025 09:43-0400 Diastolic blood pressure 81 mm[Hg] Anthony Chamorro MD Work Phone: [facility] 01-06-2025 09:43-0400 Heart rate 60 /min Anthony Chamorro MD Work Phone: [facility] 01-06-2025 09:43-0400 SaO2% (BldA) [Mass fraction] 95 % Anthony Chamorro MD Work Phone: [facility] 01-06-2025 09:43-0400 Systolic blood pressure 132 mm[Hg] Anthony Chamorro MD Work Phone: [facility] 01-05-2025 15:17-0400 Diastolic blood pressure 88 mm[Hg] Quoc Us HOME MANAGER - KEY BED INSTALLER Work Phone: [facility] 01-05-2025 15:17-0400 Systolic blood pressure 136 mm[Hg] Quoc Us HOME MANAGER - KEY BED INSTALLER Work Phone: [facility] 01-05-2025 14:50-0400 Body height 165.1 cm Quocmarita Us HOME MANAGER - KEY BED INSTALLER Work Phone: [facility] 01-05-2025 14:50-0400 Body mass index (BMI) [Ratio] 24.4 kg/m2 Quoc Us HOME MANAGER - KEY BED INSTALLER Work Phone: [facility] 01-05-2025 14:50-0400 Body weight 66.5 kg Quoc Us HOME MANAGER - KEY BED INSTALLER Work Phone: [facility] 01-05-2025 14:50-0400 Heart rate 79 /min Quoc Us HOME MANAGER - KEY BED INSTALLER Work Phone: [facility] 01-05-2025 14:50-0400 SaO2% (BldA) [Mass fraction] 97 % Quoc Us HOME MANAGER - KEY BED INSTALLER Work Phone: [facility] 01-04-2025 11:01-0400 SaO2% (BldA) [Mass fraction] 99 % Anthony Chamorro MD Work Phone: [facility] 01-04-2025 10:58-0400 Body temperature 98.1 [degF] Anthony Chamorro MD Work Phone: [facility] 01-04-2025 10:58-0400 Diastolic blood pressure 87 mm[Hg] Anthony Chamorro MD Work Phone: [facility] 01-04-2025 10:58-0400 Heart rate 61 /min Anthony Chamorro MD Work Phone: [facility] 01-04-2025 10:58-0400 Respiratory rate 20 /min Anthony Chamorro MD Work Phone: [facility] 01-04-2025 10:58-0400 Systolic blood pressure 138 mm[Hg] Anthony Chamorro MD Work Phone: [facility] 01-04-2025 10:57-0400 Body height 165.1 cm Anthony Chamorro MD Work Phone: [facility] 01-04-2025 10:57-0400 Body mass index (BMI) [Ratio] 24.96 kg/m2 Anthony Chamorro MD Work Phone: [facility] 01-04-2025 10:57-0400 Body weight 68.04 kg Anthony Chamorro MD Work Phone: [facility] 12-03-2024 07:46-0400 Body mass index (BMI) [Ratio] 24.76 kg/m2 [employer]oc Us APRN - KEY BED INSTALLER Work Phone: [facility] 12-03-2024 07:46-0400 Body weight 67.5 kg Quoc Us HOME MANAGER - KEY BED INSTALLER Work Phone: [facility] 12-03-2024 07:46-0400 Diastolic blood pressure 85 mm[Hg] Quoc Us HOME MANAGER - KEY BED INSTALLER Work Phone: [facility] 12-03-2024 07:46-0400 Heart rate 66 /min Quoc Us APRN - KEY BED INSTALLER Work Phone: [facility] 12-03-2024 07:46-0400 SaO2% (BldA) [Mass fraction] 97 % Quoc Us HOME MANAGER - KEY BED INSTALLER Work Phone: [facility] 12-03-2024 07:46-0400 Systolic blood pressure 128 mm[Hg] Quoc Us HOME MANAGER - KEY BED INSTALLER Work Phone: [facility] 11-30-2024 15:13-0400 Diastolic blood pressure 85 mm[Hg] Jayant gN MD Work Phone: [facility] 11-30-2024 15:13-0400 Heart rate 54 /min Jayant Ng MD Work Phone: [facility] 11-30-2024 15:13-0400 Respiratory rate 16 /min Jayant Ng MD Work Phone: [facility] 11-30-2024 15:13-0400 SaO2% (BldA) [Mass fraction] 98 % Jayant Ng MD Work Phone: [facility] 11-30-2024 15:13-0400 Systolic blood pressure 138 mm[Hg] Jayant Ng MD Work Phone: [facility] 11-30-2024 12:50-0400 Body height 165.1 cm Jayant Ng MD Work Phone: [facility] 11-30-2024 12:50-0400 Body mass index (BMI) [Ratio] 24.63 kg/m2 Jayant Ng MD Work Phone: [facility] 11-30-2024 12:50-0400 Body temperature 97.59 [degF] Jayant Ng MD Work Phone: [facility] 11-30-2024 12:50-0400 Body weight 67.13 kg Jayant Ng MD Work Phone: [facility] 11-28-2024 10:05-0400 Diastolic blood pressure 87 mm[Hg] Schedule [facility] 11-28-2024 10:05-0400 Heart rate 58 /min Schedule [facility] 11-28-2024 10:05-0400 Systolic blood pressure 169 mm[Hg] Schedule [facility] 11-28-2024 09:54-0400 SaO2% (BldA) [Mass fraction] 98 % Schedule [facility] 08-21-2024 11:57-0500 Body height 165.1 cm Oscar Morelos MD Work Phone: [facility] 08-21-2024 11:57-0500 Body mass index (BMI) [Ratio] 23.96 kg/m2 Oscar Morelos MD Work Phone: [facility] 08-21-2024 11:57-0500 Body weight 65.32 kg Oscar Morelos MD Work Phone: [facility] 08-21-2024 11:56-0500 Body temperature 98.2 [degF] Oscar Morelos MD Work Phone: [facility] 08-21-2024 11:56-0500 Diastolic blood pressure 93 mm[Hg] Oscar Morelos MD Work Phone: [facility] 08-21-2024 11:56-0500 Heart rate 72 /min Oscar Morelos MD Work Phone: [facility] 08-21-2024 11:56-0500 Respiratory rate 20 /min Oscar Morelos MD Work Phone: [facility] 08-21-2024 11:56-0500 SaO2% (BldA) [Mass fraction] 98 % Oscar Morelos MD Work Phone: [facility] 08-21-2024 11:56-0500 Systolic blood pressure 152 mm[Hg] Oscar Morelos MD Work Phone: [facility] 08-15-2024 11:38-0500 Body mass index (BMI) [Ratio] 24.1 kg/m2 Ilan Jimienthal HOME MANAGER - KEY BED INSTALLER Work Phone: [facility] 08-15-2024 11:38-0500 Body temperature 98.71 [degF] Ilan Jimienthal HOME MANAGER - KEY BED INSTALLER Work Phone: [facility] 08-15-2024 11:38-0500 Body weight 65.68 kg Ilancourt Groveal HOME MANAGER - KEY BED INSTALLER Work Phone: [facility] 08-15-2024 11:38-0500 Diastolic blood pressure 70 mm[Hg] Ilan Bridenthal HOME MANAGER - KEY BED INSTALLER Work Phone: [facility] 08-15-2024 11:38-0500 Heart rate 95 /min Ilan Bridenthal HOME MANAGER - KEY BED INSTALLER Work Phone: [facility] 08-15-2024 11:38-0500 Respiratory rate 16 /min Ilan Bridenthal HOME MANAGER - KEY BED INSTALLER Work Phone: [facility] 08-15-2024 11:38-0500 SaO2% (BldA) [Mass fraction] 96 % Ilan Bridenthal HOME MANAGER - KEY BED INSTALLER Work Phone: [facility] 08-15-2024 11:38-0500 Systolic blood pressure 102 mm[Hg] Ilan Bridenthal HOME MANAGER - KEY BED INSTALLER Work Phone: [facility] 05-26-2024 14:59-0500 Body height 165.1 cm Ilan Bridenthal HOME MANAGER - KEY BED INSTALLER Work Phone: [facility] 05-26-2024 14:59-0500 Body mass index (BMI) [Ratio] 24.46 kg/m2 Ilan Bridenthal HOME MANAGER - KEY BED INSTALLER Work Phone: [facility] 05-26-2024 14:59-0500 Body weight 66.68 kg Ilan Bridenthal HOME MANAGER - KEY BED INSTALLER Work Phone: [facility] 05-26-2024 14:59-0500 Diastolic blood pressure 74 mm[Hg] Ilan Bridenthal HOME MANAGER - KEY BED INSTALLER Work Phone: [facility] 05-26-2024 14:59-0500 Heart rate 77 /min Ilan Bridenthal HOME MANAGER - KEY BED INSTALLER Work Phone: [facility] 05-26-2024 14:59-0500 SaO2% (BldA) [Mass fraction] 97 % Ilan Bridenthal HOME MANAGER - KEY BED INSTALLER Work Phone: [facility] 05-26-2024 14:59-0500 Systolic blood pressure 125 mm[Hg] Ilan Tariq HOME MANAGER - KEY BED INSTALLER Work Phone: [facility] 05-01-2024 09:28-0400 Body height 165.1 cm Anthony Chamorro MD Work Phone: [facility] 05-01-2024 09:28-0400 Body mass index (BMI) [Ratio] 24.46 kg/m2 Anthony Chamorro MD Work Phone: [facility] 05-01-2024 09:28-0400 Body weight 66.68 kg Anthony Chamorro MD Work Phone: [facility] 05-01-2024 09:28-0400 Diastolic blood pressure 80 mm[Hg] Anthony Chamorro MD Work Phone: [facility] 05-01-2024 09:28-0400 Heart rate 74 /min Anthony Chamorro MD Work Phone: [facility] 05-01-2024 09:28-0400 SaO2% (BldA) [Mass fraction] 97 % Anthony Chamorro MD Work Phone: [facility] 05-01-2024 09:28-0400 Systolic blood pressure 119 mm[Hg] Anthony Chamorro MD Work Phone: [facility] 04-07-2024 08:29-0400 Diastolic blood pressure 77 mm[Hg] Anthony Chamorro MD Work Phone: [facility] 04-07-2024 08:29-0400 Systolic blood pressure 121 mm[Hg] Anthony Chamorro MD Work Phone: [facility] 04-07-2024 07:55-0400 Body height 165.1 cm Anthony Chamorro MD Work Phone: [facility] 04-07-2024 07:55-0400 Body mass index (BMI) [Ratio] 23.96 kg/m2 Anthony Chamorro MD Work Phone: [facility] 04-07-2024 07:55-0400 Body weight 65.32 kg Anthony Chamorro MD Work Phone: [facility] 04-07-2024 07:55-0400 Heart rate 87 /min Anthony Chamorro MD Work Phone: [facility] 04-07-2024 07:55-0400 SaO2% (BldA) [Mass fraction] 98 % Anthony Chamorro MD Work Phone: [facility] 03-26-2024 18:33-0400 Diastolic blood pressure 105 mm[Hg] Celso Tiffanierakola DO Work Phone: [facility] 03-26-2024 18:33-0400 Heart rate 68 /min Celso Tiffanierakola DO Work Phone: [facility] 03-26-2024 18:33-0400 Respiratory rate 16 /min Celso Tiffanierakola DO Work Phone: [facility] 03-26-2024 18:33-0400 SaO2% (BldA) [Mass fraction] 100 % Celso Tiffanierakola DO Work Phone: [facility] 03-26-2024 18:33-0400 Systolic blood pressure 148 mm[Hg] Celso Mudrakola DO Work Phone: [facility] 03-26-2024 17:02-0400 Body height 165.1 cm Celso Tiffanierakola DO Work Phone: [facility] 03-26-2024 17:02-0400 Body mass index (BMI) [Ratio] 24.96 kg/m2 Celso Tiffanierakola DO Work Phone: [facility] 03-26-2024 17:02-0400 Body temperature 97.9 [degF] Celso Tiffanierakola DO Work Phone: [facility] 03-26-2024 17:02-0400 Body weight 68.04 kg Celso Tiffanierakola DO Work Phone: [facility] 03-18-2024 16:04-0400 Diastolic blood pressure 87 mm[Hg] Corona Aleman MD Work Phone: [facility] 03-18-2024 16:04-0400 Heart rate 81 /min Corona Aleman MD Work Phone: [facility] 03-18-2024 16:04-0400 Respiratory rate 14 /min Corona Aleman MD Work Phone: [facility] 03-18-2024 16:04-0400 SaO2% (BldA) [Mass fraction] 98 % Corona Aleman MD Work Phone: [facility] 03-18-2024 16:04-0400 Systolic blood pressure 156 mm[Hg] Corona Aleman MD Work Phone: [facility] 03-18-2024 14:06-0400 Body height 165.1 cm Corona Aleman MD Work Phone: [facility] 03-18-2024 14:06-0400 Body mass index (BMI) [Ratio] 24.96 kg/m2 Corona Aleman MD Work Phone: [facility] 03-18-2024 14:06-0400 Body temperature 97.7 [degF] Corona Aleman MD Work Phone: [facility] 03-18-2024 14:06-0400 Body weight 68.04 kg Corona Aleman MD Work Phone: [facility] 03-11-2024 14:54-0400 Diastolic blood pressure 86 mm[Hg] Anthony Chamorro MD Work Phone: [facility] 03-11-2024 14:54-0400 Heart rate 62 /min Anthony Chamorro MD Work Phone: [facility] 03-11-2024 14:54-0400 Systolic blood pressure 136 mm[Hg] Anthony Chamorro MD Work Phone: [facility] 03-11-2024 14:35-0400 Body height 165.1 cm Anthony Chamorro MD Work Phone: [facility] 03-11-2024 14:35-0400 Body mass index (BMI) [Ratio] 25.09 kg/m2 Anthony Chamoror MD Work Phone: [facility] 03-11-2024 14:35-0400 Body weight 68.4 kg Anthony Chamorro MD Work Phone: [facility] 03-11-2024 14:35-0400 SaO2% (BldA) [Mass fraction] 98 % Anthony Chamorro MD Work Phone: [facility] 03-07-2024 04:12-0400 Diastolic blood pressure 92 mm[Hg] Marek Ly MD Work Phone: [facility] 03-07-2024 04:12-0400 Heart rate 73 /min Marek Ly MD Work Phone: [facility] 03-07-2024 04:12-0400 Respiratory rate 20 /min Marek Ly MD Work Phone: [facility] 03-07-2024 04:12-0400 SaO2% (BldA) [Mass fraction] 97 % Marek Ly MD Work Phone: [facility] 03-07-2024 04:12-0400 Systolic blood pressure 140 mm[Hg] Marek Ly MD Work Phone: [facility] 03-07-2024 02:11-0400 Body height 165.1 cm Marek Ly MD Work Phone: [facility] 03-07-2024 02:11-0400 Body mass index (BMI) [Ratio] 24.96 kg/m2 Marek Ly MD Work Phone: [facility] 03-07-2024 02:11-0400 Body temperature 97.81 [degF] Marek Ly MD Work Phone: [facility] 03-07-2024 02:11-0400 Body weight 68.04 kg Marek Ly MD Work Phone: [facility] 02-27-2024 11:15-0400 Body height 165.1 cm Weston Henao MD Work Phone: [facility] 02-27-2024 11:15-0400 Body mass index (BMI) [Ratio] 24.79 kg/m2 Weston Henao MD Work Phone: [facility] 02-27-2024 11:15-0400 Body weight 67.59 kg Weston Henao MD Work Phone: [facility] 02-27-2024 11:15-0400 Diastolic blood pressure 86 mm[Hg] Weston Henao MD Work Phone: [facility] 02-27-2024 11:15-0400 Systolic blood pressure 157 mm[Hg] Weston Henao MD Work Phone: [facility] 02-13-2024 11:35-0400 Diastolic blood pressure 78 mm[Hg] Ilan Bridenthal HOME MANAGER - KEY BED INSTALLER Work Phone: [facility] 02-13-2024 11:35-0400 Systolic blood pressure 166 mm[Hg] Ilan Bridenthal HOME MANAGER - KEY BED INSTALLER Work Phone: [facility] 02-13-2024 11:07-0400 Body mass index (BMI) [Ratio] 24.89 kg/m2 Ilan Bridenthal HOME MANAGER - KEY BED INSTALLER Work Phone: [facility] 02-13-2024 11:07-0400 Body temperature 98.2 [degF] Ilan Bridenthal HOME MANAGER - KEY BED INSTALLER Work Phone: [facility] 02-13-2024 11:07-0400 Body weight 67.86 kg Ilan Bridenthal HOME MANAGER - KEY BED INSTALLER Work Phone: [facility] 02-13-2024 11:07-0400 Heart rate 61 /min Ilan Bridenthal HOME MANAGER - KEY BED INSTALLER Work Phone: [facility] 07-24-2024 11:07-0400 Respiratory rate 20 /min Ilan Tariq HOME MANAGER - KEY BED INSTALLER Work Phone: [facility] 02-13-2024 11:07-0400 SaO2% (BldA) [Mass fraction] 98 % Ilan Tariq HOME MANAGER - KEY BED INSTALLER Work Phone: [facility] 01-16-2024 07:52-0400 Diastolic blood pressure 77 mm[Hg] Anthony Chamorro MD Work Phone: [facility] 01-16-2024 07:52-0400 Heart rate 49 /min Anthony Chamorro MD Work Phone: [facility] 01-16-2024 07:52-0400 Systolic blood pressure 148 mm[Hg] Anthony Chamorro MD Work Phone: [facility] 01-16-2024 07:30-0400 Body height 165.1 cm Anthony Chamorro MD Work Phone: [facility] 01-16-2024 07:30-0400 Body mass index (BMI) [Ratio] 25.03 kg/m2 Anthony Chamorro MD Work Phone: [facility] 01-16-2024 07:30-0400 Body weight 68.22 kg Anthony Chamorro MD Work Phone: [facility] 01-16-2024 07:30-0400 SaO2% (BldA) [Mass fraction] 95 % Anthony Chamorro MD Work Phone: [facility] 04-11-2023 13:18-0400 Body height 165.1 cm Quoc Us HOME MANAGER - KEY BED INSTALLER Work Phone: [facility] 04-11-2023 13:18-0400 Body mass index (BMI) [Ratio] 24.3 kg/m2 Quoc Us HOME MANAGER - KEY BED INSTALLER Work Phone: [facility] 04-11-2023 13:18-0400 Body temperature 98.01 [degF] Quoc Us HOME MANAGER - KEY BED INSTALLER Work Phone: [facility] 04-11-2023 13:18-0400 Body weight 66.22 kg Quoc Us HOME MANAGER - KEY BED INSTALLER Work Phone: [facility] 04-11-2023 13:18-0400 Diastolic blood pressure 80 mm[Hg] Quoc sU HOME MANAGER - KEY BED INSTALLER Work Phone: [facility] 04-11-2023 13:18-0400 Heart rate 91 /min Quoc Us HOME MANAGER - KEY BED INSTALLER Work Phone: [facility] 04-11-2023 13:18-0400 SaO2% (BldA) [Mass fraction] 96 % Quoc Us HOME MANAGER - KEY BED INSTALLER Work Phone: [facility] 04-11-2023 13:18-0400 Systolic blood pressure 124 mm[Hg] Quoc Magen HOME MANAGER - KEY BED INSTALLER Work Phone: [facility] 03-21-2023 13:11-0400 Body height 165.1 cm Rosanne Giraldo MD Work Phone: [facility] 03-21-2023 13:11-0400 Body mass index (BMI) [Ratio] 24.96 kg/m2 Rosanne Giraldo MD Work Phone: [facility] 03-21-2023 13:11-0400 Body weight 68.04 kg Rosanne Giraldo MD Work Phone: [facility] 03-21-2023 13:11-0400 Diastolic blood pressure 62 mm[Hg] Rosanne Giraldo MD Work Phone: [facility] 03-21-2023 13:11-0400 Systolic blood pressure 116 mm[Hg] Rosanne Giraldo MD Work Phone: [facility] 08-09-2022 08:08-0500 Body height 165.1 cm Rosanne Giraldo MD Work Phone: [facility] 08-09-2022 08:08-0500 Body mass index (BMI) [Ratio] 24.96 kg/m2 Rosanne Giraldo MD Work Phone: [facility] 08-09-2022 08:08-0500 Body weight 68.04 kg Rosanne Giraldo MD Work Phone: [facility] 02-23-2022 14:15-0400 Body mass index (BMI) [Ratio] 24.89 kg/m2 Tonio Yo MD Work Phone: [facility] 02-23-2022 14:15-0400 Body temperature 96.01 [degF] Tonio Yo MD Work Phone: [facility] 02-23-2022 14:15-0400 Body weight 65.77 kg Tonio Yo MD Work Phone: [facility] 02-23-2022 14:15-0400 Diastolic blood pressure 89 mm[Hg] Tonio Yo MD Work Phone: [facility] 02-23-2022 14:15-0400 Heart rate 65 /min Tonio Yo MD Work Phone: [facility] 02-23-2022 14:15-0400 Respiratory rate 18 /min Tonio Yo MD Work Phone: [facility] 02-23-2022 14:15-0400 SaO2% (BldA) [Mass fraction] 98 % Tonio Yo MD Work Phone: [facility] 02-23-2022 14:15-0400 Systolic blood pressure 147 mm[Hg] Tonio Yo MD Work Phone: [facility] 02-14-2022 09:48-0400 Body temperature 97.81 [degF] Rosanne Giraldo MD Work Phone: [facility] 02-14-2022 09:48-0400 Diastolic blood pressure 90 mm[Hg] Roasnne Giraldo MD Work Phone: [facility] 02-14-2022 09:48-0400 Heart rate 73 /min Rosanne Giraldo MD Work Phone: [facility] 02-14-2022 09:48-0400 Respiratory rate 16 /min Rosanne Giraldo MD Work Phone: [facility] 02-14-2022 09:48-0400 SaO2% (BldA) [Mass fraction] 100 % Rosanne Giraldo MD Work Phone: [facility] 02-14-2022 09:48-0400 Systolic blood pressure 148 mm[Hg] Rosanne Giraldo MD Work Phone: [facility] Encounters Encounter Date Encounter Type Care Provider Facility Start: 06-01-2025 End: 06-01-2025 ambulatory [facility] Start: 05-05-2025 End: 05-06-2025 Follow-up encounter Ilan Tariq HOME MANAGER - KEY BED INSTALLER Work Phone: [facility] Comment on above: Lipid panel, JIMMY MELO Lipid panel, JIMMY MELO, Additional followed-up results: 3 Start: 05-04-2025 End: 05-04-2025 ambulatory [facility] Start: 04-08-2025 End: 04-08-2025 [facility] Start: 04-06-2025 End: 04-06-2025 Office outpatient visit 25 minutes Ilan Perfectoal HOME MANAGER - KEY BED INSTALLER Work Phone: [facility] Comment on above: Hypercholesterolemia (Primary Dx); Nerve pain; Primary hypertension; Anxiety Start: 04-06-2025 End: 04-06-2025 ambulatory [facility] Start: 04-03-2025 End: 04-03-2025 Emergency department patient visit Ilan Tariq BARKING MACHINE FEEDER-C Work Phone: -Emergency Department Work Phone: Start: 03-31-2025 End: 03-31-2025 Patient encounter procedure Manan Packer MD Work Phone: Neurology Comment on above: Disturbance of skin sensation (Primary Dx) Start: 03-31-2025 End: 03-31-2025 ambulatory MANAN PACKER Facility:[facility] Start: 03-24-2025 End: 03-24-2025 Office outpatient visit 15 minutes Ilan Lu HOME MANAGER - KEY BED INSTALLER Work Phone: [facility] Comment on above: Nerve pain (Primary Dx); RUQ pain; Postoperative abdominal pain Start: 03-24-2025 End: 03-24-2025 [facility] Start: 03-16-2025 End: 03-16-2025 Office outpatient visit 25 minutes Ilan Tariq HOME MANAGER - KEY BED INSTALLER Work Phone: [facility] Comment on above: Nerve pain (Primary Dx); Anxiety; Muscle spasm; Primary hypertension Start: 03-16-2025 End: 03-16-2025 ambulatory [facility] Start: 03-13-2025 End: 03-13-2025 Clinical Support Schedule Avelina Waller [facility] Comment on above: Primary hypertension (Primary Dx) Start: 03-10-2025 End: 03-10-2025 Postop follow up visit related to original px Rosanne Ryan HOME MANAGER - KEY BED INSTALLER Work Phone: [facility] Comment on above: Postoperative examin ation (Primary Dx); S/P laparoscopic cholecystectomy Start: 03-10-2025 End: 03-10-2025 ambulatory [facility] Start: 03-03-2025 End: 03-03-2025 Emergency department patient visit Kavin Westbrook MD Work Phone: [facility] Comment on above: Lower abdominal pain (Primary Dx); Constipation, unspecified constipation type Start: 03-02-2025 End: 03-02-2025 Patient encounter procedure Shellie Samano RN [facility] Start: 03-02-2025 End: 03-02-2025 ambulatory Shellie Samano RN [facility] Start: 03-02-2025 End: 03-02-2025 Postop follow up visit related to original px Yesenia LENTZ Work Phone: [facility] Comment on above: Postop check (Primar y Dx); S/P laparoscopic cholecystectomy Start: 02-21-2025 End: 03-16-2025 ambulatory Carmelita Dale RN [facility] Start: 02-21-2025 End: 03-16-2025 Patient encounter procedure Carmelita Dale RN [facility] Start: 02-20-2025 End: 02-20-2025 Telephone encounter Corona Cool MD Work Phone: [facility] Start: 02-19-2025 End: 02-19-2025 ambulatory [facility] Start: 02-19-2025 End: 02-19-2025 Subsequent hospital visit by physician Corona Cool MD Work Phone: [facility] Comment on above: Cholecystitis (Prima ry Dx); Chronic cholecystitis Start: 02-18-2025 End: 02-18-2025 Admission to same day surgery center Rosanne Davis APRN - KEY BED INSTALLER Work Phone: [facility] Comment on above: Chronic cholecystiti s (Primary Dx) Start: 02-18-2025 End: 02-18-2025 Office outpatient new 45 minutes Corona Cool MD Work Phone: [facility] Comment on above: Cholecystitis; Abnormal biliary HIDA scan Start: 02-18-2025 End: 02-18-2025 ambulatory Rosanne Davis APRN - KEY BED INSTALLER Work Phone: [facility] Start: 02-11-2025 End: 02-11-2025 ambulatory Ilan Tariq BARKING MACHINE FEEDER-C Work Phone: -Nuclear Medicine [facility] Start: 02-11-2025 End: 02-11-2025 Patient encounter procedure Ilan Perfectoal BARKING MACHINE FEEDER-C -Nuclear Medicine [facility] Work Phone: Start: 02-11-2025 End: 02-11-2025 ambulatory [facility] Facility:[facility] Start: 01-28-2025 End: 01-28-2025 Telephone encounter Malena LENTZ-C Work Phone: Gastroenterology [place] Start: 01-27-2025 End: 01-27-2025 ambulatory [facility] Start: 01-27-2025 End: 01-27-2025 Office outpatient visit 15 minutes Ilanling Groveal HOME MANAGER - KEY BED INSTALLER Work Phone: [facility] Comment on above: RUQ pain (Primary Dx ); Primary hypertension; Myalgia Start: 01-27-2025 End: 01-27-2025 Office outpatient visit 25 minutes Ilanling Groveal HOME MANAGER - KEY BED INSTALLER Work Phone: [facility] Comment on above: RUQ pain (Primary Dx ); Primary hypertension; Myalgia Start: 01-19-2025 End: 01-19-2025 Subsequent hospital visit by physician Nick Head MD Work Phone: [facility] Nuclear Medicine Comment on above: DDD (degenerative di sc disease), thoracic Start: 01-19-2025 End: 01-19-2025 ambulatory [facility] Start: 01-11-2025 End: 03-13-2025 Follow-up encounter Anthony Chamorro MD Work Phone: [facility] Comment on above: LYME ANTIBODY SCREEN WITH REFLEX TO IMMUNOBLOT, Sedimentation rate, automated, C-reactive protein Start: 01-06-2025 End: 01-06-2025 Office outpatient visit 25 minutes Anthony Chamorro MD Work Phone: [facility] Comment on above: Myalgia (Primary Dx) ; Pain of both shoulder joints; Chronic fatigue Start: 01-06-2025 End: 01-06-2025 ambulatory [facility] Start: 01-05-2025 End: 01-05-2025 Office outpatient visit 15 minutes Quoc Us HOME MANAGER - KEY BED INSTALLER Work Phone: [facility] Comment on above: Chronic midline thor acic back pain (Primary Dx) Start: 01-05-2025 End: 01-05-2025 Office outpatient visit 25 minutes Quoc Us HOME MANAGER - KEY BED INSTALLER Work Phone: [facility] Comment on above: Chronic midline thor acic back pain (Primary Dx) Start: 01-05-2025 End: 01-05-2025 ambulatory [facility] Start: 01-04-2025 End: 01-04-2025 Emergency department patient visit ANTHONY CHAMORRO [facility] Comment on above: Chronic midline thor acic back pain (Primary Dx) Start: 01-01-2025 End: 04-02-2025 Transcribe Orders Nick Head MD Work Phone: [facility] Central Scheduling Comment on above: DDD (degenerative di sc disease), thoracic (Primary Dx) Start: 12-30-2024 End: 12-30-2024 Refill Quoc Us HOME MANAGER - KEY BED INSTALLER Work Phone: [facility] Start: 12-12-2024 End: 02-11-2025 Follow-up encounter Ilan Lu HOME MANAGER - KEY BED INSTALLER Work Phone: [facility] Comment on above: Lipid panel Start: 12-11-2024 End: 12-11-2024 ambulatory [facility] Start: 12-11-2024 End: 12-11-2024 Encounter for general adult medical examination without abnormal findings ILAN [facility] Start: 12-03-2024 End: 12-03-2024 Office outpatient visit 25 minutes Quoc Us HOME MANAGER - KEY BED INSTALLER Work Phone: [facility] Comment on above: Chest pain, unspecif ied type (Primary Dx); Primary hypertension; Hypercholesterolemia; Anxiety Start: 12-03-2024 End: 12-03-2024 ambulatory [facility] Start: 11-30-2024 End: 11-30-2024 Emergency department patient visit Jayant Ng MD Work Phone: [facility] Comment on above: Chest pain, unspecif ied type (Primary Dx) Start: 11-28-2024 End: 11-28-2024 Clinical Support Schedule [facility] Comment on above: Primary hypertension Start: 08-21-2024 End: 08-21-2024 ambulatory Gwen Khan RN [facility] Communication Start: 08-21-2024 End: 08-21-2024 Patient encounter procedure Gwen Khan RN [facility] Start: 08-21-2024 End: 08-21-2024 Emergency department patient visit Oscar Morelos MD Work Phone: [facility] Comment on above: Shortness of breath (Primary Dx); Bronchospasm Start: 08-15-2024 End: 08-15-2024 Office outpatient visit 15 minutes Ilan Bridenthal HOME MANAGER - KEY BED INSTALLER Work Phone: [facility] Comment on above: Influenza A (Primary Dx); Viral URI with cough; Rib pain on right side Start: 08-15-2024 End: 08-15-2024 ambulatory ANTHONY CHAMORRO [facility] Start: 08-14-2024 End: 08-14-2024 ambulatory Josee Saravia RN [facility] Clinical Communication Start: 08-14-2024 End: 08-14-2024 Patient encounter procedure Josee Saravia RN [facility] Communication Start: 05-26-2024 End: 05-26-2024 Office outpatient visit 10 minutes Ilan Bridenthal HOME MANAGER - KEY BED INSTALLER Work Phone: [facility] Comment on above: Spinal stenosis of l umbosacral region (Primary Dx); Renal cyst Start: 05-26-2024 End: 05-26-2024 Documentation procedure Ashley Xiong PT [facility] Comment on above: PT Discharge Start: 05-20-2024 End: 05-20-2024 Clinical Support Schedule [facility] Comment on above: Idiopathic pyuria (P rimary Dx); Bladder wall thickening Start: 05-01-2024 End: 05-01-2024 Office outpatient visit 15 minutes Anthony Chamorro MD Work Phone: [facility] Comment on above: Spinal stenosis of l umbosacral region (Primary Dx); Pre-op examination; Weakness of both lower extremities; Primary hypertension; Anxiety; Refused influenza vaccine Start: 05-01-2024 End: 05-01-2024 Preprocedural examination done Anthony Chamorro MD Work Phone: [facility] Start: 04-07-2024 End: 04-07-2024 Office outpatient visit 25 minutes Anthony Chamorro MD Work Phone: [facility] Comment on above: Acute midline low ba ck pain without sciatica (Primary Dx); Weakness of both lower extremities; Anxiety Start: 04-05-2024 End: 04-07-2024 Refill Ilan Tariq HOME MANAGER - KEY BED INSTALLER Work Phone: [facility] Comment on above: Mixed hyperlipidemia Start: 03-26-2024 End: 03-26-2024 Emergency department patient visit Celso Stokes DO Work Phone: [facility] Comment on above: Acute exacerbation o f chronic low back pain (Primary Dx) Start: 03-25-2024 End: 03-25-2024 Follow-up encounter Weston Henao MD Work Phone: [facility] Comment on above: Cervical radiculitis (Primary Dx); Scapular dyskinesis Start: 03-20-2024 End: 03-20-2024 Follow-up encounter Weston Henao MD Work Phone: [facility] Comment on above: Cervical radiculitis (Primary Dx); Scapular dyskinesis Start: 03-18-2024 End: 03-18-2024 Subsequent hospital visit by physician [facility] [address] Exam Room [address] [facility] [address] Comment on above: Arrived Start: 03-18-2024 End: 03-18-2024 Emergency department patient visit Corona Aleman MD Work Phone: [facility] Comment on above: Midline low back aaron n without sciatica, unspecified chronicity (Primary Dx) Start: 03-18-2024 End: 03-18-2024 ambulatory Mamta Muro RN [facility] Clinical Communication Start: 03-18-2024 End: 03-18-2024 Patient encounter procedure Mamta Muro RN [facility] al Communication Start: 03-17-2024 End: 03-17-2024 Office outpatient visit 15 minutes Weston Henao MD Work Phone: [facility] Comment on above: Spondylolisthesis of lumbosacral region (Primary Dx); Lumbar pain Start: 03-17-2024 End: 03-17-2024 Subsequent hospital visit by physician Weston Henao MD Work Phone: [facility] Comment on above: Lumbar pain Start: 03-13-2024 End: 03-13-2024 Follow-up encounter Weston Henao MD Work Phone: [facility] Comment on above: Cervical radiculitis (Primary Dx); Scapular dyskinesis Start: 03-11-2024 End: 03-11-2024 Office outpatient visit 15 minutes Anthony Chamorro MD Work Phone: [facility] Comment on above: Right lower quadrant abdominal pain (Primary Dx) Start: 03-11-2024 End: 03-11-2024 Follow-up encounter Weston Henao MD Work Phone: [facility] Comment on above: Cervical radiculitis (Primary Dx); Scapular dyskinesis Start: 03-07-2024 End: 03-07-2024 Subsequent hospital visit by physician [facility] Exam Room [address] [facility] [address] Comment on above: Arrived Start: 03-07-2024 End: 03-07-2024 Emergency department patient visit Marek Ly MD Work Phone: [facility] Comment on above: RLQ abdominal pain ( Primary Dx) Start: 03-06-2024 End: 03-06-2024 ambulatory Weston Henao MD Work Phone: [facility] Comment on above: Cervical radiculitis ; Scapular dyskinesis Start: 03-04-2024 End: 03-04-2024 ambulatory Indu Dykes RN [facility] Clinical Communication Start: 03-04-2024 End: 03-04-2024 Patient encounter procedure Indu Dykes RN [facility] Clinical Communication Start: 02-27-2024 End: 02-27-2024 Office outpatient visit 15 minutes Weston Henao MD Work Phone: [facility] Comment on above: Cervical radiculitis (Primary Dx); Scapular dyskinesis Start: 02-18-2024 End: 02-18-2024 ambulatory Monse Ibanez RN [facility] Clinical Communication Start: 02-18-2024 End: 02-18-2024 Patient encounter procedure Monse Ibanez RN [facility] Clinical Communication Start: 02-13-2024 End: 02-13-2024 ambulatory Devi Mckinney RN [facility] Clinical Communication Start: 02-13-2024 End: 02-13-2024 Patient encounter procedure Devi Mckinney RN [facility] al Communication Start: 02-13-2024 End: 02-13-2024 Office outpatient visit 15 minutes Ilancourt Groveal HOME MANAGER - KEY BED INSTALLER Work Phone: [facility] Comment on above: Upper back pain (Estrellita jay Dx); Muscle spasm; Primary hypertension Start: 02-01-2024 End: 02-01-2024 ambulatory Sakina Guzman RN [facility] Clinical Communication Start: 02-01-2024 End: 02-01-2024 Patient encounter procedure Sakina Guzman RN [facility] al Communication Start: 01-23-2024 End: 01-23-2024 Telephone encounter Ilancourt Tariq HOME MANAGER - KEY BED INSTALLER Work Phone: [facility] Comment on above: Blood Pressure Check Start: 01-16-2024 End: 01-16-2024 Office outpatient visit 25 minutes Anthony Chamorro MD Work Phone: [facility] Comment on above: Primary hypertension (Primary Dx); Osteoarthritis of multiple joints, unspecified osteoarthritis type; Hypercholesterolemia Start: 10-18-2023 Telephone encounter Ilan Br identhal HOME MANAGER - KEY BED INSTALLER Work Phone: [facility] Comment on above: Results Start: 09-18-2023 Telephone encounter Ilan Lennon identhal HOME MANAGER - KEY BED INSTALLER Work Phone: [facility] Comment on above: Results Start: 06-18-2023 Orders Only Quoc German Magen HOME MANAGER - KEY BED INSTALLER Work Phone: [facility] Start: 04-25-2023 Orders Only Quoc German Magen HOME MANAGER - KEY BED INSTALLER Work Phone: [facility] Start: 04-11-2023 End: 04-11-2023 Office outpatient visit 15 minutes Quoc Monserrat Magen HOME MANAGER - KEY BED INSTALLER Work Phone: [facility] Comment on above: Viral URI (Primary D x); Post-nasal drip Start: 03-21-2023 End: 03-21-2023 Office outpatient visit 15 minutes Rosanne Giraldo MD Work Phone: [facility] Comment on above: Status post hip repl acement, right (Primary Dx); Primary osteoarthritis of right hip Start: 03-21-2023 End: 03-21-2023 Subsequent hospital visit by physician Rosanne Giraldo MD Work Phone: [facility] Comment on above: Status post hip repl acement, right Start: 03-01-2023 Orders Only Mikhail Fernandes PA-C Work Phone: [facility] Comment on above: Status post hip repl acement, right (Primary Dx) Start: 08-09-2022 End: 08-09-2022 Office outpatient visit 15 minutes Rosanne Giraldo MD Work Phone: [facility] Comment on above: Primary osteoarthrit is of right hip (Primary Dx); Right hip pain; Status post hip replacement, right Start: 08-09-2022 End: 08-09-2022 Subsequent hospital visit by physician Mikhail Fernandes PA-C Work Phone: [facility] Comment on above: S/P total right hip arthroplasty Start: 07-31-2022 Orders Only Mikhail Fernandes PA-C Work Phone: [facility] Comment on above: S/P total right hip arthroplasty (Primary Dx) Start: 04-04-2022 ambulatory UNKNOWN PROVIDER [facility] Start: 03-29-2022 End: 03-29-2022 Subsequent hospital visit by physician Mikhail Fernandes PA-C Work Phone: [facility] Comment on above: S/P total right hip arthroplasty Start: 02-23-2022 End: 02-23-2022 Emergency department patient visit Tonio Yo MD Work Phone: [facility] Comment on above: Upper back pain (Estrellita jay Dx) Start: 02-14-2022 End: 02-14-2022 Subsequent hospital visit by physician Rosanne Giraldo MD Work Phone: [facility] Pre-Admit Testing Comment on above: Arrived Start: 01-27-2022 End: 01-27-2022 Subsequent hospital visit by physician Weston Henao MD Work Phone: [facility] Start: 12-12-2021 End: 12-12-2021 Subsequent hospital visit by physician Weston Henao MD Work Phone: [facility] Start: 05-05-2019 End: 05-05-2019 Subsequent hospital visit by physician Weston Henao Work Phone: [facility] Comment on above: Right-sided chest wa ll pain; Right upper quadrant abdominal pain Start: 04-01-2019 End: 04-01-2019 Subsequent hospital visit by physician Weston Henao Work Phone: [facility] Comment on above: Hip abductor tendini tis, right; Strain of iliopsoas muscle, right, initial encounter Procedures Date Procedure Procedure Detail Performing Clinician Start: 06-01-2025 Lipid panel Ilan Bridenthal HOME MANAGER - KEY BED INSTALLER Work Phone: Start: 06-01-2025 Transferase aspartate amino ast sgot Ilan Jimienthal HOME MANAGER - KEY BED INSTALLER Work Phone: Start: 06-01-2025 Lipid 1996 panel - Serum or Plasma Ilan Jimienthal HOME MANAGER - KEY BED INSTALLER Work Phone: Start: 05-04-2025 Lipid 1996 panel - Serum or Plasma Ilan Jimienthal HOME MANAGER - KEY BED INSTALLER Work Phone: Start: 04-03-2025 CT of abdominal aorta with contrast Ilancourt Krauseenthal BARKING MACHINE FEEDER-C Work Phone: Start: 04-03-2025 Estimated creatinine clearance Ilan Krauseenthal BARKING MACHINE FEEDER-C Work Phone: Start: 03-24-2025 Follow-up visit Follow-up ILAN TARIQ Start: 03-03-2025 Urnls dip stick/tablet rgnt auto w/o microscopy Kavin Westbrook MD Work Phone: Start: 03-03-2025 C-reactive protein Kavin Westbrook MD Work Phone: Start: 03-03-2025 Comprehensive metabolic panel Kavin Westbrook MD Work Phone: Start: 02-11-2025 Radionuclide study of abdomen Ilan Krauseenthal BARKING MACHINE FEEDER-C Work Phone: Start: 01-19-2025 Bone &/joint imaging whole body Nick Head MD Work Phone: Start: 01-04-2025 Assay of troponin quantitative Fabiola Brito PA-C Work Phone: Start: 01-04-2025 Ct thoracic spine w/o contrast material Fabiola Brito PA-C Work Phone: Start: 01-04-2025 Ecg routine ecg w/least 12 lds trcg only w/o i&r Fabiola Brito PA-C Work Phone: Start: 01-04-2025 Comprehensive metabolic panel Fabiola Brito PA-C Work Phone: Start: 12-11-2024 Adult depression screening assessment Quoc Us [facility] Work Phone: Start: 12-11-2024 Lipid 1996 panel - Serum or Plasma Quoc Us [facility] Work Phone: Start: 12-03-2024 Adult depression screening assessment Quoc Us [facility] Work Phone: Start: 11-30-2024 Assay of troponin quantitative Jayant Ng MD Work Phone: Start: 11-30-2024 Radiologic exam chest single view Jayant Ng MD Work Phone: Start: 11-30-2024 Comprehensive metabolic panel Jayant Ng MD Work Phone: Start: 11-30-2024 Ecg routine ecg w/least 12 lds trcg only w/o i&r Jayant Ng MD Work Phone: Start: 11-28-2024 Adult depression screening assessment Schedule Fp Start: 08-21-2024 Radiologic exam chest 2 views Oscar Morelos MD Work Phone: Start: 08-21-2024 Comprehensive metabolic panel Oscar Morelos MD Work Phone: Start: 08-15-2024 Infectious agent dna/rna influenza 1st 2 types Ilan Jimienthal [facility] Work Phone: Start: 05-20-2024 Urnls dip stick/tablet rgnt non-auto w/o micrscp Anthony Chamorro MD Work Phone: Start: 03-18-2024 End: 03-18-2024 Ct cervical spine w/o contrast material Corona Aleman MD Work Phone: Start: 03-07-2024 Urinalysis complete panel - Urine Marek Ly MD Work Phone: Start: 03-07-2024 Urnls dip stick/tablet rgnt auto w/o microscopy Marek Ly MD Work Phone: Start: 03-07-2024 Ct abdomen & pelvis w/contrast material Marek Ly MD Work Phone: Start: 03-07-2024 Comprehensive metabolic panel Marek Ly MD Work Phone: Start: 01-16-2024 Adult depression screening assessment Anthony Chamorro MD Work Phone: Start: 10-17-2023 Lipid 1996 panel - Serum or Plasma Ilan Bridenthal HOME MANAGER - KEY BED INSTALLER Work Phone: Start: 09-17-2023 Adult depression screening assessment Ilan Bridenthal HOME MANAGER - KEY BED INSTALLER Work Phone: Start: 09-17-2023 Lipid 1996 panel - Serum or Plasma Ilan Bridenthal HOME MANAGER - KEY BED INSTALLER Work Phone: Start: 08-09-2022 Radex hip unilateral with pelvis 2-3 views Mikhail Bernalfiglio PA-C Work Phone: Start: 03-29-2022 Radex hip unilateral with pelvis 2-3 views Mikhail Gabefiglio PA-C Work Phone: Start: 02-23-2022 ADD ON LAB TEST Tonio Yo MD Work Phone: Start: 02-23-2022 Comprehensive metabolic panel Tonio Yo MD Work Phone: Start: 02-23-2022 Radiologic exam chest 2 views Tonio Yo MD Work Phone: Start: 02-23-2022 Ecg routine ecg w/least 12 lds w/i&r Scottie Paulino MD Work Phone: Start: 02-14-2022 Blood count complete automated Oscar Levi MD Work Phone: Start: 01-27-2022 Radex spine cervical 2 or 3 views Weston Henao MD Work Phone: Start: 09-02-2020 Lipid 1996 panel - Serum or Plasma Mikhail Bernalfiglio PA-C Work Phone: Start: 07-08-2019 Colonoscopy Weston Henao MD Work Phone: Start: 05-05-2019 Radex ribs uni w/posteroant ch minimum 3 views Weston Henao Work Phone: Start: 04-01-2019 Radiologic examination pelvis 1/2 views Weston Henao Work Phone: History of cholecystectomy S/P laparoscopic cholecystectomy Yesenia Clemons PA Work Phone: History of cholecystectomy S/P laparoscopic cholecystectomy Rosanne Davis HOME MANAGER - KEY BED INSTALLER Work Phone: History of cholecystectomy Hx of cholecystectomy Ilan Tariq BARKING MACHINE FEEDER-C Work Phone: Plan of Treatment Date Care Activity Detail Author Start: 2032 RSV Immunization for Adults (1 - 1-dose 75+ series) RSV Immunization for Adults (1 - 1-dose 75+ series) [facility] Start: 2032 RSV Vaccine (1 - 1-dose 75+ series) RSV Vaccine (1 - 1-dose 75+ series) [facility] Start: 06-01-2030 Lipid panel Lipid Panel [facility] Start: 05-04-2030 Lipid panel Lipid Panel [facility] Start: 12-11-2029 Lipid panel [facility] Start: 07-08-2029 Screening for malignant neoplasm of colon [facility] Start: 10-16-2028 Lipid panel Lipid Panel [facility] Start: 09-17-2028 Lipid panel Lipid Panel [facility] Start: 03-03-2028 Diabetes Screening Diabetes Screening [facility] Start: 01-05-2028 Diabetes Screening Diabetes Screening [facility] Start: 01-10-2026 Medicare Annual Wellness (AWV) Medicare Annual Wellness (AWV) [facility] Start: 12-11-2025 Depression Screening Depression Screening [facility] Start: 12-03-2025 Depression Screening Depression Screening [facility] Start: 11-28-2025 Depression Screening Depression Screening [facility] Start: 09-02-2025 Lipid panel Lipid Panel [facility] Start: 08-31-2025 Lipid panel Lipids [facility] Start: 07-13-2025 End: 07-13-2025 Patient encounter procedure 07/13/2025 7:40 AM EST [facility] [address] [place] [address] Ilan Tariq, HOME MANAGER - KEY BED INSTALLER [address] [place] [address] [facility] Start: 06-06-2025 End: 05-06-2026 Alanine aminotransferase [Enzymatic activity/volume] in Serum or Plasma ALT Lab Routine Hypercholesterolemia Expected: 06/06/2025 (Approximate), Expires: 05/06/2026 [facility] Comment on above: Expected: 06/06/2025 (Approximate), Expi res: 05/06/2026 Start: 06-06-2025 End: 05-06-2026 Aspartate aminotransferase [Enzymatic activity/volume] in Serum or Plasma AST Lab Routine Hypercholesterolemia Expected: 06/06/2025 (Approximate), Expires: 05/06/2026 [facility] Work Phone: Comment on above: Expected: 06/06/2025 (Approximate), Expi res: 05/06/2026 Start: 06-06-2025 End: 05-06-2026 Lipid 1996 panel - Serum or Plasma Lipid panel Lab Routine Hypercholesterolemia Expected: 06/06/2025 (Approximate), Expires: 05/06/2026 [facility] Comment on above: Expected: 06/06/2025 (Approximate), Expi res: 05/06/2026 Start: 06-01-2025 End: 06-01-2025 Clinical Support 06/01/2025 8:00 AM EST Clinical Support [facility] [address] [place] [address] [facility] Start: 05-06-2025 End: 04-06-2026 Lipid 1996 panel - Serum or Plasma Lipid panel Lab Routine Hypercholesterolemia Expected: 05/06/2025 (Approximate), Expires: 04/06/2026 [facility] Work Phone: Comment on above: Expected: 05/06/2025 (Approximate), Expi res: 04/06/2026 Start: 05-04-2025 End: 05-04-2025 Clinical Support 05/04/2025 8:00 AM EDT Clinical Support [facility] [address] [place] [address] [facility] Start: 04-30-2025 COVID-19 Vaccine () COVID-19 Vaccine () [facility] Comment on above: Postponed from 03/23/2024 (Patient Refus ed) Start: 04-30-2025 COVID-19 Vaccine () COVID-19 Vaccine () [facility] Comment on above: Postponed from 03/23/2024 (Patient Refus ed) Start: 04-15-2025 End: 04-15-2025 Patient encounter procedure 04/15/2025 9:00 AM EDT [facility] [address] [place] [id number] Marek Boykin PA-C [address] [place] [address] [facility] Gastroenterology [facility] Start: 04-08-2025 Subsequent hospital visit by physician 04/08/2025 7:45 AM EDT Hospital Encounter [facility] [address] [place] [address] Ilan Tariq, HOME MANAGER - KEY BED INSTALLER [address] [place] [address] [facility] [address] Start: 04-06-2025 End: 04-06-2026 Alanine aminotransferase [Enzymatic activity/volume] in Serum or Plasma ALT Lab Routine Hypercholesterolemia Expected: 04/06/2025 (Approximate), Expires: 04/06/2026 [facility] Comment on above: Expected: 04/06/2025 (Approximate), Expi res: 04/06/2026 Start: 04-06-2025 End: 04-06-2026 Aspartate aminotransferase [Enzymatic activity/volume] in Serum or Plasma AST Lab Routine Hypercholesterolemia Expected: 04/06/2025 (Approximate), Expires: 04/06/2026 [facility] Comment on above: Expected: 04/06/2025 (Approximate), Expi res: 04/06/2026 Start: 04-06-2025 End: 04-06-2025 Patient encounter procedure 04/06/2025 10:00 AM EDT [facility] [address] [place] [address] [place] [address] Ilan Tariq, HOME MANAGER - KEY BED INSTALLER [address] [place] [address] [place] [address] [facility] Start: 04-03-2025 [facility] Start: 03-24-2025 End: 03-24-2026 CT Abdomen and Pelvis WO contrast CT abdomen pelvis wo IV contrast Imaging Routine RUQ pain Postoperative abdominal pain Expected: 03/24/2025, Expires: 03/24/2026 [facility] Work Phone: Comment on above: Expected: 03/24/2025, Expires: Start: 03-24-2025 End: 03-24-2025 Patient encounter procedure [facility] Start: 03-23-2025 COVID-19 Vaccine ( season) COVID-19 Vaccine ( season) [facility] Start: 03-23-2025 Influenza vaccination [facility] Start: 03-13-2025 End: 03-13-2025 Clinical Support 03/13/2025 8:30 AM EDT Clinical Support [facility] [address] [place] [address] [place] [address] [facility] Start: 03-05-2025 End: 03-05-2025 Patient encounter procedure [facility] Start: 02-23-2025 End: 02-23-2025 Patient encounter procedure 02/23/2025 11:00 AM EDT Office Visit Pain Management [address] [address] Junaid Koo MD [address] [facility] [place] [address] upper back,lower back pain Pain Management Comment on above: upper back,lower back pain Start: 02-19-2025 End: 02-19-2025 Admission to same day surgery center 02/19/2025 12:00 PM EDT - 02/19/2025 1:30 PM EDT Surgery [facility] MA[facility] OR [address] [place] [phone] Corona Cool MD [address] [facility] [address] [place], [place] [id number] LAPAROSCOPIC CHOLECYSTECTOMY [94513 (CPT )] [facility] MA[facility] OR Comment on above: LAPAROSCOPIC CHOLECYSTECTOMY [67421 (CPT )] Start: 02-19-2025 End: 02-19-2025 Laparoscopy surg cholecystectomy LAPAROSCOPIC, CHOLECYSTECTOMY Chronic cholecystitis 02/19/2025 12:00 PM EDT [facility] Operating Room Start: 02-19-2025 Subsequent hospital visit by physician 02/19/2025 12:00 PM EDT Hospital Encounter [facility] MAIN OR [address] [place] [address] Corona Cool MD [address] [facility] [address] [place] [address] [facility] MA[facility] OR Start: 01-27-2025 End: 01-27-2026 NM Gallbladder Views W cholecystokinin and W radionuclide IV NM hepatobiliary scan with pharm agent w/cck Imaging Routine RUQ pain Expected: 01/27/2025, Expires: 01/27/2026 [facility] Work Phone: Comment on above: Expected: 01/27/2025, Expires: Start: 01-19-2025 Influenza vaccination Influenza Vaccine (#1) [facility] Comment on above: Postponed from 03/23/2024 (Patient Refus ed) Start: 01-19-2025 End: 01-19-2025 Patient encounter procedure 01/19/2025 9:30 AM EDT Appointment [facility] Nuclear Medicine [address] [place] [address] Nick Head MD [address] [facility] [address] [place] [id number] [facility] Nuclear Medicine Start: 01-15-2025 Depression Screening Depression Screening [facility] Start: 01-06-2025 End: 01-06-2026 Borrelia burgdorferi IgG+IgM Ab [Units/volume] in Serum LYME ANTIBODY SCREEN WITH REFLEX TO IMMUNOBLOT Lab Routine Myalgia Pain of both shoulder joints Chronic fatigue Expected: 01/06/2025 (Approximate), Expires: 01/06/2026 [facility] Work Phone: Comment on above: Expected: 01/06/2025 (Approximate), Expi res: 01/06/2026 Start: 01-06-2025 End: 01-06-2026 C reactive protein [Mass/volume] in Serum or Plasma C-reactive protein Lab Routine Myalgia Pain of both shoulder joints Chronic fatigue Expected: 01/06/2025 (Approximate), Expires: 01/06/2026 [facility] Comment on above: Expected: 01/06/2025 (Approximate), Expi res: 01/06/2026 Start: 01-06-2025 End: 01-06-2026 Erythrocyte sedimentation rate Sedimentation rate, automated Lab Routine Myalgia Pain of both shoulder joints Chronic fatigue Expected: 01/06/2025 (Approximate), Expires: 01/06/2026 [facility] Comment on above: Expected: 01/06/2025 (Approximate), Expi res: 01/06/2026 Start: 12-11-2024 End: 12-11-2024 Patient encounter procedure 12/11/2024 8:00 AM EDT Office Visit [facility] [place] [address] [place] [address] Ilan Tariq, HOME MANAGER - KEY BED INSTALLER [address] [place] [address] [facility] Start: 10-17-2024 Medicare Annual Wellness (AWV) Medicare Annual Wellness (AWV) [facility] Start: 09-17-2024 COVID-19 Vaccine ( season) COVID-19 Vaccine ( season) [facility] Comment on above: Postponed from 03/23/2023 (Patient Refus ed) Start: 09-17-2024 Depression Screening Depression Screening [facility] Start: 09-17-2024 DTaP/Tdap/Td Vaccines (1 - Tdap) DTaP/Tdap/Td Vaccines (1 - Tdap) [facility] Comment on above: Postponed from 1976 (Patient Refus ed) Start: 09-17-2024 Hepatitis C screening Hepatitis C Screening [facility] Comment on above: Postponed from 1975 (Patient Refus ed) Start: 09-17-2024 Pneumococcal Vaccine: 50+ Years (1 of 1 - PCV) Pneumococcal Vaccine: 50+ Years (1 of 1 - PCV) [facility] Comment on above: Postponed from 2007 (Patient Refus ed) Start: 09-17-2024 Pneumococcal Vaccine: 65+ Years (1 of 1 - PCV) Pneumococcal Vaccine: 65+ Years (1 of 1 - PCV) [facility] Comment on above: Postponed from 2022 (Patient Refus ed) Start: 09-17-2024 RSV Immunization aged 60 or older (1 - 1-dose 60+ series) RSV Immunization aged 60 or older (1 - 1-dose 60+ series) [facility] Comment on above: Postponed from 2017 (Patient Refus ed) Start: 09-17-2024 Zoster Vaccines (1 of 2) Zoster Vaccines (1 of 2) [facility] Comment on above: Postponed from 2007 (Patient Refus ed) Start: 09-16-2024 End: 09-16-2024 Patient encounter procedure 09/16/2024 8:30 AM EST Office Visit [facility] [place] [address] [place] [address] Anthony Chamorro MD [address] [place] [address] [place] [address] [facility] [place] Start: 08-15-2024 End: 08-15-2024 Patient encounter procedure 08/15/2024 11:40 AM EST Office Visit [facility] [place] [address] [place] [address] Ilan Tariq, HOME MANAGER - KEY BED INSTALLER [address] [place] [address] [facility] Start: 08-01-2024 End: 08-01-2024 Patient encounter procedure [facility] Start: 07-23-2024 Advance Directive Discussion Advance Directive Discussion [facility] Start: 05-20-2024 End: 05-20-2025 Bacteria identified in Urine by Culture Urine culture Microbiology Routine Bladder wall thickening Idiopathic pyuria Expected: 05/20/2024 (Approximate), Expires: 05/20/2025 [facility] Work Phone: Comment on above: Expected: 05/20/2024 (Approximate), Expi res: 05/20/2025 Start: 04-03-2024 End: 04-03-2024 ambulatory 04/03/2024 7:45 AM EDT Evaluation [facility] at [address] [place] [id number] Ashley Xiong, PT [facility] at [facility] Start: 04-01-2024 End: 04-01-2024 Follow-up encounter 04/01/2024 7:15 AM EDT Follow-Up [facility] at [address] [place] [phone] Ashley Xiong, PT [facility] Start: 03-27-2024 End: 03-27-2024 Follow-up encounter 03/27/2024 7:00 AM EDT Follow-Up [facility] at [address] [place] [address] Abhi Carolina, PT [facility] at [facility] Start: 03-25-2024 End: 03-25-2024 Follow-up encounter [facility] Therapy at [facility] Start: 03-23-2024 COVID-19 Vaccine ( season) COVID-19 Vaccine () [facility] Start: 03-23-2024 Covid-19 Vaccine () Covid-19 Vaccine () [facility] Start: 03-23-2024 Influenza vaccination [facility] Start: 03-20-2024 End: 03-20-2024 Follow-up encounter [facility] at [facility] Start: 03-18-2024 End: 03-18-2024 Follow-up encounter [facility] at [facility] Start: 03-17-2024 End: 03-17-2024 Patient encounter procedure 03/17/2024 8:30 AM EDT Office Visit [facility] [address] [place] [address] [place] [phone] Weston Henao MD [address] [place] [address] [place] [address] [facility] Start: 03-14-2024 End: 03-14-2025 XR Lumbar spine Views W flexion and W extension XR lumbar spine 4-5 view Imaging Routine Lumbar pain Expected: 03/14/2024, Expires: 03/14/2025 [facility] Work Phone: Comment on above: Expected: 03/14/2024, Expires: Start: 03-13-2024 End: 03-13-2024 Follow-up encounter [facility] at [facility] Start: 03-11-2024 End: 03-11-2024 Follow-up encounter 03/11/2024 7:45 AM EDT Follow-Up [facility] at [facility] [address] [place] [address] Weston Henao MD [address] [place] [address] Ashley Xiong, PT [facility] at [facility] Start: 03-06-2024 End: 03-06-2024 ambulatory 03/06/2024 7:30 AM EDT Evaluation [facility] [address] [place] [address] Weston Henao MD [address] [place] [address] Ashley Xiong, PT [facility] Start: 02-27-2024 End: 02-27-2024 Patient encounter procedure 02/27/2024 11:15 AM EDT Office Visit [facility] [address] [place] [address] [facility] Start: 02-05-2024 End: 02-05-2024 Clinical Support 02/05/2024 7:30 AM EDT Clinical Support [facility] [address] [place] [address] [facility] Start: 01-23-2024 End: 01-23-2024 Clinical Support 01/23/2024 7:30 AM EDT Clinical Support [facility] [address] [place] [address] [facility] Start: 01-20-2024 Influenza vaccination Influenza Vaccine (#1) [facility] Comment on above: Postponed from 03/23/2023 (Patient Refus ed) Start: 01-16-2024 End: 01-16-2024 Patient encounter procedure 01/16/2024 7:30 AM EDT Office Visit [facility] [address] [facility] [place] [address] [place] [address] Anthony Chamorro MD [address] [place] [address] [place] [address] [facility] Start: 10-17-2023 End: 09-18-2024 Alanine aminotransferase [Enzymatic activity/volume] in Serum or Plasma ALT Lab Routine Mixed hyperlipidemia Expected: 10/17/2023 (Approximate), Expires: 09/18/2024 [facility] Comment on above: Expected: 10/17/2023 (Approximate), Expi res: 09/18/2024 Start: 10-17-2023 End: 09-18-2024 Aspartate aminotransferase [Enzymatic activity/volume] in Serum or Plasma AST Lab Routine Mixed hyperlipidemia Expected: 10/17/2023 (Approximate), Expires: 09/18/2024 [facility] Comment on above: Expected: 10/17/2023 (Approximate), Expi res: 09/18/2024 Start: 10-17-2023 End: 09-18-2024 Lipid 1996 panel - Serum or Plasma Lipid panel Lab Routine Mixed hyperlipidemia Expected: 10/17/2023 (Approximate), Expires: 09/18/2024 [facility] Work Phone: Comment on above: Expected: 10/17/2023 (Approximate), Expi res: 09/18/2024 Start: 10-17-2023 End: 10-17-2023 Clinical Support 10/17/2023 7:00 AM EDT Clinical Support [facility] [address] [place] [address] [place] [address] [facility] Start: 10-14-2023 Lipid screen Lipid screen [facility] [place] Start: 08-15-2023 End: 08-15-2023 Patient encounter procedure [facility] Start: 03-23-2023 COVID-19 Vaccine ( season) COVID-19 Vaccine () [facility] Start: 03-23-2023 Influenza vaccination Influenza Vaccine (#1) [facility] Start: 03-21-2023 End: 03-21-2023 Patient encounter procedure 03/21/2023 2:30 PM EDT Office Visit [facility] [address] [place] [address] [place] [phone] Rosanne Giraldo MD [address] [facility] [address] [place] [address] [facility] Start: 03-01-2023 End: 03-01-2024 XR Hip - right 3 Views XR hip right 2 or 3 views Imaging Routine Status post hip replacement, right Expected: 03/01/2023, Expires: 03/01/2024 [facility] Work Phone: Comment on above: Expected: 03/01/2023, Expires: Start: 02-17-2023 Depression Screen Depression Screen [facility] Start: 12-21-2022 Medicare Annual Wellness Visit Medicare Annual Wellness Visit [facility] Start: 08-14-2022 End: 08-14-2022 Patient encounter procedure 08/14/2022 Office Visit Family Medicine Pedro PabloAnthony corrales MD [address] [facility], [place] [address] [facility] Start: 08-09-2022 End: 08-09-2022 Patient encounter procedure 08/09/2022 Office Visit Orthopedic Surgery Rosanne Giraldo MD [address] [facility] [address] [place] [address] [facility] [place] Start: 08-09-2022 End: 08-09-2022 Documentation procedure 08/09/2022 Documentation Orthopedic Surgery [facility] [place] Start: 07-31-2022 End: 07-31-2023 XR Hip - right 3 Views XR hip right 2 or 3 views Imaging Routine S/P total right hip arthroplasty Expected: 07/31/2022, Expires: 07/31/2023 [facility]: Comment on above: Expected: 07/31/2022, Expires: Start: 2022 Pneumococcal Vaccine: 65+ Years (1 - PCV) Pneumococcal Vaccine: 65+ Years (1 - PCV) [facility] Start: 06-28-2022 End: 06-28-2022 Patient encounter procedure 06/28/2022 Office Visit Orthopedic Surgery Rosanne Giraldo MD [address] [facility] [address] [place], [place] [id number] [facility] [place] Start: 06-28-2022 End: 06-28-2022 Nursing evaluation of patient and report 06/28/2022 Nurse Only Orthopedic Surgery [facility] Orthoped[facility] [place] Start: 06-08-2022 Screening for malignant neoplasm of colon [facility] Start: 03-30-2022 End: 03-30-2022 Patient encounter procedure 03/30/2022 Office Visit Sports Medicine [facility] [place] Start: 03-29-2022 End: 03-29-2022 Patient encounter procedure 03/29/2022 Office Visit Orthopedic Surgery Mikhail Fernandes PA-C [address] [facility] [address] [place], [place] [id number] [facility] [place] Start: 03-29-2022 End: 03-29-2022 Nursing evaluation of patient and report 03/29/2022 Nurse Only Orthopedic Surgery [facility] Orthopedics [facility] [place] Start: 03-23-2022 Influenza vaccination [facility] Start: 02-28-2022 End: 02-28-2022 Patient encounter procedure 02/28/2022 Appointment General Surgery Rosanne Giraldo MD [address] [facility] [address] [place], [place] [id number] B [facility] Start: 02-28-2022 Subsequent hospital visit by physician 02/28/2022 Hospital Encounter General Surgery Rosanne Giraldo MD [address] [facility] [address] [place], [place] [id number] B [facility] Surgery Start: 02-20-2022 End: 02-20-2022 Patient encounter procedure 02/20/2022 Office Visit Family Medicine Anthony Chamorro MD [address] [facility] [place] [address] [facility] Start: 02-02-2022 End: 02-02-2022 Nursing evaluation of patient and report 02/02/2022 Nurse Only Family Medicine [facility] Start: 12-21-2021 End: 12-21-2021 Patient encounter procedure 12/21/2021 Office Visit Orthopedic Surgery Rosanne Giraldo MD [address] [place] [address] [address] [place] [address] [facility] [place] Start: 08-31-2021 Prostate specific antigen measurement Prostate Specific Antigen (PSA) Screening or Monitoring [facility] Start: 08-26-2021 Depression Screen Depression Screen [facility] Start: 08-16-2021 COVID-19 Vaccine (3 - Booster for Moderna series) COVID-19 Vaccine (3 - Booster for Moderna series) [facility] Start: 05-11-2021 COVID-19 Vaccine (3 - Booster for Moderna series) COVID-19 Vaccine (3 - Booster for Moderna series) [facility] Start: 05-11-2021 COVID-19 Vaccine (3 - Moderna series) COVID-19 Vaccine (3 - Moderna series) [facility] Start: 10-10-2019 DTaP/Tdap/Td vaccine (1 - Tdap) DTaP/Tdap/Td vaccine ([facility] - Tdap[facility] Comment on above: Postponed from 1976 (Patient Refus ed) Start: 10-10-2019 Hepatitis C screen Hepatitis C screen [facility] [place] Comment on above: Postponed from 1957 (Patient Refus ed) Start: 10-10-2019 HIV screen HIV screen [facility] [place] Comment on above: Postponed from 1972 (Patient Refus ed) Start: 10-10-2019 Shingles Vaccine (1 of 2) Shingles Vaccine (1 of 2) [place] Comment on above: Postponed from 2007 (Patient Refus ed) Start: 05-14-2019 End: 05-14-2019 Office Visit 05/14/2019 Office Visit Sports Medicine Tavo Wasserman MD [address] [facility] [address] [place] [address] [phone] [facility] [place] Start: 03-23-2019 Influenza vaccination Flu vaccine (#1) [place] Start: 2017 RSV Immunization aged 60 or older (1 - 1-dose 60+ series) RSV Immunization aged 60 or older (1 - 1-dose 60+ series) [facility] Start: 2007 Colon cancer screen colonoscopy Colon cancer screen colonoscopy [place], [place] Start: 2007 Pneumococcal Vaccine: 50+ (1 of 1 - PCV) Pneumococcal Vaccine: 50+ (1 of 1 - PCV) [facility] Start: 2007 Pneumococcal Vaccine: 50+ Years (1 of 1 - PCV) Pneumococcal Vaccine: 50+ Years (1 of 1 - PCV) [facility] Start: 2007 Shingles vaccine (1 of 2) Shingles vaccine (1 of 2) [facility] Start: 2007 Shingrix Vaccine (1 of 2) Shingrix Vaccine (1 of 2) [facility] Start: 2007 Zoster Vaccines (1 of 2) Zoster Vaccines (1 of 2) [facility] Start: 2002 Prostate specific antigen measurement Prostate Cancer Screening Discussion [facility] Start: 2002 Screening for malignant neoplasm of colon [facility] Start: 1992 Diabetes screen Diabetes screen [facility] Start: 1976 DTaP/Tdap/Td vaccine (1 - Tdap) DTaP/Tdap/Td vaccine (1 - Tdap) [facility] Start: 1976 DTaP/Tdap/Td Vaccines (1 - Tdap) DTaP/Tdap/Td Vaccines (1 - Tdap) [facility] Start: 1976 Urine microalbumin profile DTaP,Tdap,Td Vaccine (1 - Tdap) [facility] Start: 1975 Anxiety Screening Anxiety Screening [facility] Start: 1975 Depression Screening Depression Screening [facility] Start: 1975 Diabetes mellitus screening Diabetes Screening [facility] Start: 1975 Hepatitis C screening [facility] Start: 1972 HIV screening HIV screen [facility] Start: 1969 Depression Screening Depression Screening [facility] Start: 1958 MMR Vaccines (1 of 1 - Standard series) MMR Vaccines (1 of 1 - Standard series) [facility] Start: 1957 Annual wellness visit Medicare Initial Physical (IPPE) [facility] Start: 1957 Hepatitis B Vaccines (1 of 3 - 3-dose series) Hepatitis B Vaccines (1 of 3 - 3-dose series) [facility] Start: 1957 Screening for malignant neoplasm of colon [facility] ECG 12 lead ECG 12 lead CV E CG STAT 01/04/2025 11:38 AM EDT [facility] [employer] Work Phone: Hemoglobin A1c/Hemoglobin.total in Blood [facility] Tissue exam [facility] [employer] [facility] Work Phone: Comment on above: Release Upon Ordering for 1 Occurrences starting 02/19/2025 End: 03-21-2023 XR Hip - right 3 Views [facility] [employer] [facility] Work Phone: Comment on above: Once for 1 Occurrences starting 03/21/20 23 until 03/21/2023 End: 12-12-2021 XR HIP RIGHT (2-3 VIEWS) [facility] Work Phone: Comment on above: Once for 1 Occurrences starting 12/13/19 22 until 12/12/2021 End: 03-17-2024 XR Lumbar spine Views W flexion and W extension [facility] [employer] Comment on above: Once for 1 Occurrences starting 03/17/20 24 until 03/17/2024 Immunizations Immunization Date Immunization Notes Care Provider Alex rogers 03-16-2021 COVID-19, Moderna, Primary or Immunocompromised, PF, 100mcg/0.5mL Weston Henao MD Work Phone: [facility] Work Phone: 02-16-2021 COVID-19, Moderna, Primary or Immunocompromised, PF, 100mcg/0.5mL Weston Henao MD Work Phone: [employer] Work Phone: Payers Date Payer Category Payer Self-pay 2024 Private Health Insurance [employer] MED ICARE SUPPLEMENT [id number] 2023 Medicare supplementa l policy (as second payer) [employer] MEDICARE SUPPLEMENT [id number] 2023 Unknown [id number] 2022 Medicare [id number] 2022 Medicare [id number] 2021 Unknown BC[place] - [place] P PO [id number] 2021-Present [phone] [address] [place] [address] [id number] 2021 Unknown 2017 Private Health Insurance LUISANA MAYES PPO xxxxxxxxxxx 2017-Present [phone] [address] [place] [address] xxxxxxxxxxx [id number] 1955 Unknown [id number] Private Health Insurance [id number] Unknown [id number] Unknown [id number] Social History Date Type Detail Facility Start: 04-01-2019 End: 03-11-2024 Tobacco smoking status NHIS Never smoker [place], [place] History of tobacco use Chews Tobacco [place] Start: 04-01-2019 End: 12-11-2024 Alcohol intake Yes [place] Start: 11-12-2018 History SDOH Alcohol Frequency 3 [place] Start: 11-12-2018 End: 02-17-2022 History SDOH Alcohol Std Drinks 2 [place] Start: 11-12-2018 End: 02-17-2022 History SDOH Social Connections Phone 5 [place] Start: 11-12-2018 End: 07-08-2022 History SDOH Social Connections [facility] 1 [place] Start: 11-12-2018 History SDOH Physica l Activity MPS 6 [place] Start: 1955 Sex Assigned At Not on file M [place], [place] Start: 01-12-2015 End: 12-22-2023 Tobacco use and exposure User of smokeless tobacco [employer] Work Phone: Start: 12-12-2021 End: 08-09-2022 Alcohol intake Current drinker of alcohol (finding) [employer] Work Phone: Start: 08-26-2020 History SDOH Alcohol Comment occasional/social [employer] Work Phone: Start: 08-26-2020 End: 07-08-2022 History SDOH Physical Activity DPW 0 [facility] Work Phone: Start: 08-26-2020 History SDOH Physica l Activity MPS 99 [facility] Work Phone: Start: 08-26-2020 History SDOH Financial 4 [facility] Work Phone: Start: 11-26-2021 End: 04-11-2023 Exposure to SARS-CoV-2 (event) Not sure [facility] Start: 02-14-2022 End: 12-11-2024 Alcohol intake [facility] Work Phone: How often to you hav e a drink containing alcohol? Never [facility] Start: 05-02-[address] inks containing alcohol do you have on a typical day? Patient does not drink [facility] Start: 09-17-2023 Alcohol Comment one beer per week [facility] Has the [employer], or [employer] threatened to shut off services in your home in past 12Mo No [facility] Are you now , , , , never or living with a partner? [facility] Do you feel stress - tense, restless, nervous, or anxious, or unable to sleep at night because your mind is troubled all the time - these days [OSQ] Not at all [facility] (I/We) worried dania er (my/our) food would run out before (I/we) got money to buy more. Never true [facility] Start: 03-11-2024 Tobacco use and exposure Forme r smokeless tobacco user [facility] Start: 03-18-2024 End: 04-06-2025 Alcoholic beverage intake Ex-drinker (finding) [facility] Start: 02-20-2022 Sex Male (finding) [facility] Start: 05-26-2024 Alcohol Comment Very occasional [facility] How hard is it for y ou to pay for the very basics like food, housing, medical care, and heating Not very hard [facility] Tobacco smoking stat us NHIS Tobacco smoking consumption unknown [facility] Start: 1955 Sex Assigned At Male [facility] Start: 03-31-2025 Tobacco use and exposure Smoke less tobacco non-user [facility] Functional Status Date Assessment Result Facility 03-03-2025 Total score [AUDIT-C] 0 03/03/20 3:53 PM EDT Antonina Sterling RN [facility] 01-04-2025 Total score [AUDIT-C] 0 01/05/20 11:00 AM EDT Weston Luke RN [facility] 12-03-2024 Patient Health Quest ionnaire 2 item (PHQ-2) [Reported] [facility] Mental Status Date Assessment Result Facility 04-03-2025 Cognitive function Voice/Name [facility] Work Phone: Clinical Notes 02-07-2022 to 05-06-2025 Telephone Encounter - Jelly Mcgarry MA - 05/06/2025 7:08 AM EDTTelephone Encounter - Jelly Mcgarry MA - 05/06/2025 7:08 AM EDTMmarce Torrez - 04/06/2025 10:00 AM EDT Note Date & Type Note Facility 05-06-2025 Telephone encount er Note Pt agreed to the increase in medication - please send it in and sign orders [facility] 05-06-2025 Miscellaneous Notes Formattin g of this note might be different from the original. Pt agreed to the increase in medication - please send it in and sign orders documented in this encounter [facility] 04-06-2025 Evaluation + Plan note Associ ated Problem(s): Primary hypertension Controlled. Blood pressure 131/81. Continue losartan 50 mg [facility] 04-06-2025 Evaluation + Plan note Associ ated Problem(s): Nerve pain Symptoms well-controlled with amitriptyline 50 mg nightly [facility] 04-06-2025 Evaluation + Plan note Associ ated Problem(s): Hypercholesterolemia Did not tolerate rosuvastatin. We will try pravastatin and check lipids in 4 weeks [facility] 04-06-2025 Miscellaneous Notes Associate d Problem(s): Primary hypertension Controlled. Blood pressure 131/81. Continue losartan 50 mg Associated Problem(s): Nerve pain Symptoms well-controlled with amitriptyline 50 mg nightly Associated Problem(s): Hypercholesterolemia Did not tolerate rosuvastatin. We will try pravastatin and check lipids in 4 weeks Associated Problem(s): Anxiety Much improved, continue BuSpar 7.5 mg twice daily and amitriptyline 50 mg at bedtime documented in this encounter [facility] 04-06-2025 Evaluation + Plan note Associ ated Problem(s): Anxiety Much improved, continue BuSpar 7.5 mg twice daily and amitriptyline 50 mg at bedtime [facility] 04-06-2025 History of Presen t illness Narrative Patient was identified by name and Date of . Images from the original note were not included. 04/06/2025 Cortney Acosta (: 1955) is a 69 y.o. male , Established patient, here for evaluation of the following chief complaint(s): Follow-up ASSESSMENT/PLAN: 1. Hypercholesterolemia Assessment & Plan: Did not tolerate rosuvastatin. We will try pravastatin and check lipids in 4 weeks Orders: - pravastatin (Pravachol) 10 MG tablet; Take 1 tablet (10 mg) by mouth daily., Starting 04/06/2025, Until Sun05/06/2025, Normal - Lipid panel - AST - ALT 2. Nerve pain Assessment & Plan: Symptoms well-controlled with amitriptyline 50 mg nightly 3. Primary hypertension Assessment & Plan: Controlled. Blood pressure 131/81. Continue losartan 50 mg 4. Anxiety Assessment & Plan: Much improved, continue BuSpar 7.5 mg twice daily and amitriptyline 50 mg at bedtime Follow up in about 1 month (around 05/06/2025). SUBJECTIVE/OBJECTIVE: HPI - Cortney Acosta (: 1955) is a 69 y.o. male , Established patient, here for the evaluation of the following chief complaint(s): Follow-up Patient presents for nerve pain that he was having on his abdomen. Reports that has pretty much completely subsided with his recent increase of amitriptyline 50 mg nightly. He did see a neurologist who had increased the dose from the previous 10 mg. He denies any other concerns or complaints now and feels pretty good. He had gone to the emergency room for some lower leg symptoms that have now resolved. They did do a CT of the abdomen pelvis which showed some cardiac calcifications. He is very active and denies any shortness of breath or chest pain. He previously was on a statin but did not tolerate. He is open to trying a different cholesterol medication. Reports he is sleeping well and his anxiety is well-controlled. Is planning on going back to work tomorrow Current Medications[1] Review of Systems Constitutional: Negative. Cardiovascular: Negative. Gastrointestinal: Negative. Genitourinary: Negative. Neurological: Negative. Vitals: 04/06/25 0959 BP: 131/81 Pulse: 89 Resp: 20 Temp: 37.4 C (99.3 F) TempSrc: Infrared SpO2: 97% Weight: 145 lb 11.2 oz (66.1 kg) Physical Exam Vitals reviewed. Constitutional: General: He is not in acute distress. Appearance: Normal appearance. He is not ill-appearing. HENT: Head: Normocephalic and atraumatic. Mouth/Throat: Mouth: Mucous membranes are moist. Pharynx: Oropharynx is clear. No posterior oropharyngeal erythema. Eyes: Conjunctiva/sclera: Conjunctivae normal. Neck: Vascular: No carotid bruit. Cardiovascular: Rate and Rhythm: Normal rate and regular rhythm. Pulses: Normal pulses. Heart sounds: Normal heart sounds. Pulmonary: Effort: Pulmonary effort is normal. Breath sounds: Normal breath sounds. Musculoskeletal: Right lower leg: No edema. Left lower leg: No edema. Lymphadenopathy: Cervical: No cervical adenopathy. Skin: General: Skin is warm and dry. Neurological: Mental Status: He is alert and oriented to person, place, and time. Psychiatric: Mood and Affect: Mood normal. Behavior: Behavior normal. Thought Content: Thought content normal. An electronic signature was used to authenticate this note. Ilan Tariq, RONAN - [employer] INST[employer]ER 04/06/2025 4:43 PM [1] Current Outpatient Medications Medication Sig Dispense Refill acetaminophen (Tylenol) 500 MG tablet Take 1,000 mg by mouth every 8 hours as needed for mild pain (1-3). amitriptyline (Elavil) 50 MG tablet Take 50 mg by mouth. busPIRone (Buspar) 7.5 MG tablet Take 1 tablet (7.5 mg) by mouth 2 times daily. 180 tablet 1 losartan (Cozaar) 100 MG tablet Take 0.5 tablets (50 mg) by mouth Nightly. meloxicam (Mobic) 15 MG tablet TAKE 1 TABLET BY MOUTH EVERY MORNING WITH FOOD TO REDUCE SWELLING. DO NOT TAKE WITH OTHER NSAIDS (IBUPROFEN, ADVIL, MOTRIN, ALEVE,OR NAPROXEN) 30 tablet 3 pravastatin (Pravachol) 10 MG tablet Take 1 tablet (10 mg) by mouth daily. 30 tablet 0 No current facility-administered medications for this visit. documented in this encounter [facility] 04-03-2025 Discharge summary [facility] 04-03-2025 Radiology Diagnostic study note [facility] Imaging Services [address] [place], [place] [address] CTA Abd w/Runoff W/WO Contrast MR#: [id number] Acct: [id number] Name: CORTNEY ACOSTA Rep #: [id number] : 1955 M 69 From: Nacho Funes MD PCP: Dr. Anthony Chamorro MD Status: REG ER Study:CTA Abd w/Runoff W/WO Contrast Date of Exam: 04/03/25 Exam# [id number] Ordering Dr: Kacie Wood DO PROCEDURE: CTA ABD W/RUNOFF W/WO CONTRAST 04/03/2025 REASON FOR EXAM: LOW BACK PIAN, BLE PAIN AND COLD SENSATION Delete TECHNIQUE: Procedure Code: [id number] Modality: CT Procedure: CTA ABD W/RUNOFF W/WO CONTRAST One or more dose reduction techniques were used (e.g., Automated exposure control, adjustment of the mA and/or kV according to patient size, use of iterative reconstruction technique). Multiplanar Sagittal and Coronal images were obtained. 3D and or MIPS post processing was performed CONTRAST: Isovue 370 VOLUME: 100 mL RADIATION DOSE SUMMARY: CTDlvol: 8.8 mGy DLP: 938.45 mGycm COMPARISON: None FINDINGS: Aorta: Mild non stenotic calcific plaques in the infrarenal abdominal aorta. Celiac: Widely patent. SMA: Widely patent CULLEN : Widely patent Right Renal: Unremarkable Left Renal: Unremarkable RIGHT Iliac Arteries: Common Iliac: Unremarkable External Iliac: Unremarkable Internal Iliac: Unremarkable LEFT Iliac Arteries: Common Iliac: Unremarkable External Iliac: Unremarkable Internal Iliac: Unremarkable RIGHT Lower Extremity: Common Femoral: Unremarkable Superficial Femoral: Unremarkable Deep Femoral: Unremarkable Popliteal: Unremarkable Anterior Tibial: Unremarkable Tibioperoneal Trunk: Unremarkable Posterior Tibial: Unremarkable Peroneal: Unremarkable Dorsalis Pedis: Unremarkable LEFT Lower Extremity: Common Femoral: Unremarkable Superficial Femoral: Unremarkable Deep Femoral: Unremarkable Popliteal: Unremarkable Anterior Tibial: Unremarkable Tibioperoneal Trunk: Unremarkable Posterior Tibial: Unremarkable Peroneal: Unremarkable Dorsalis Pedis: Unremarkable. Other Findings: Coronary artery calcification. Calcified right hilar lymph nodes. Calcified granuloma in the right lower lobe. Diffuse fatty infiltration of the liver. Subcentimeter cyst is seen in the lateral aspect of the left lobe of the liver. Spleen and pancreas are unremarkable. Moderate amount of fecal material is seen in the colon. Status post right total hip replacement. CT/CTA Abd w/Runoff W/WO Contrast IMPRESSION: Normal CT a of the abdominal aorta and bilateral lower extremity runoff. Other findings as described above. Reading Location: [id number] CC: Dr. Anthony Chamorro MD; Dr. Roque Wood DO ~ Manager Of Health: Signed [facility] 04-03-2025 Discharge summary Note Date/Time April 03, 2025 3:45pm [facility] Medical Records Department [address] [place] [address] Emergency Department Summary 04/03/25 MR#: [id number] Acct: [id number] Name: CORTNEY ACOSTA Rep #:[id number] : 1955 69 From: Roque Wood DO PCP: Dr. Anthony Chamorro MD Status:REG ER Location: ED HPI History of Present Illness Chief Complaint: Numb/Ting Narrative Narrative: Patient is a 69-year-old male past medical history of previous back surgery about a year ago, cholecystectomy about 5 weeks ago, hypertension who presented to the emergency department with a chief complaint of lower extremity feeling ofcold sensation and tingling he states that is from his knees down. He states that he is also having more back pain than normal in his lower back. He states that about 5 weeks ago after multiple doctor visits secondary to pain going to his back and his shoulder they found his gallbladder needed removal which was taken out. He states that of the symptoms that he has today did happen in the past as well but resolved on their own. He states that when he woke up this morning he noticed this. He states he is urinating normally for himself and having normal bowel movements. Patient denies any other trauma or injuries to his back. Patient denies any history of blood clots denies any recent travel history but once again did have surgery recently PFSH PFSH Medical History no medical history Allergy/AdvReac Type Severity Reaction Status Date / Time Penicillins Allergy PT UNSURE Verified 04/03/25 12:50 OF REACTION Family History no significant family his Surgical History no surgical history Social History Smoking Status: Never smoker ROS ROS ED ROS Narrative Constitutional: Denies fever, chills, headache Eyes: Denies double vision Cardiovascular: Denies chest pain Respiratory: Denies shortness of breath Abdomen: Denies abdominal pain nausea vomit diarrhea : Denies urinary symptoms Neurological: Complains of numbness and cool sensation to the lower extremities from the knees down bilaterally as noted above Musculoskeletal: Complains of back pain as noted above Skin: Denies any rashes or lesions EXAM Physical Exam Narrative Exam Narrative: General: Patient was lying in bed rest comfortably did not appear to be in acutedistress Head: Atraumatic, normocephalic Eyes: PERRL bilateral, EOMI bilateral, no conjunctival injection noted Neck: Soft, supple, trachea midline Cardiovascular: Regular rate and rhythm no murmurs gallops rubs noted Respiratory: Clear to auscultation bilaterally Abdomen: Soft, nondistended, no tenderness to palpation Extremities: DP pulses +2/4 in the bilateral lower extremities as well as the PTpulses bilaterally, +5/5 strength noted in the bilateral upper and lower extremities Neurological: Patient follow commands and that he was at [facility] and the year is 2024. Sensation grossly intact no saddle anesthesia noted Skin: Warm, dry, tact no rashes or lesions noted Const Vital Signs: 04/03/25 12:50 04/03/25 14:48 Temperature 97.7 F L Temperature Source Temporal Pulse Rate 85 Respiratory Rate 18 Blood Pressure 152/101 H 151/92 H Blood Pressure Mean 118 111 Pulse Ox 99 Oxygen Delivery Method Room Air MDM MDM MDM Narrative Medical decision making narrative: Patient is a 69-year-old male who presented to the emergency department the chief complaint of lower extremity below the knee feeling of cold sensation as well as numbness. On the differential diagnose includes but not limited to arterial occlusion although low suspicion for this based on clinical exam, DVT with recent surgery, compression fracture, hardware loosening. Once workup is obtained reviewed he will be reevaluated. Patient CBC was reviewed which showed a white blood count of 7.9, hemoglobin was13.8, plate count of 270. Patient sodium is 138, potassium normal 4.4, creatinine normal at 0.82. Patient AST and ALT are 20 and 20 respectively, lipase was notably normal at 28, TSH normal at 1.55, free T4 and T3 normal at 1.30 and 2.7 respectively. Patient CTA abdomen pelvis reviewed which showed normal CT of the abdominal aorta and bilateral lower extremity runoff. He has coronary artery calcification noted with a calcified right hilar lymph nodes. 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 He states that he does not develop any chest pain with this he was advised to obtain a stress test in the outpatient setting as well. Patient's bilateral duplex negative for DVT or superficial venous embolus. A1c pending Discussed results with the patient he would like to go home at this point time. He is advised to follow-up his doctor in outpatient and return with worsening symptoms or concerns. He is agreeable to plan as well as significant other bedside all question concerns answered he was discharged home in stable condition. Lab Data Labs: Laboratory Results - last 24 hr 04/03/25 13:45 WBC 7.9 RBC 4.42 L Hgb 13.8 Hct 40.7 MCV 92.1 MCH 31.2 MCHC 33.9 RDW Std Deviation 48.8 H RDW Coeff of Anastasia 14.3 Plt Count 270 MPV 8.8 Immature Gran % (Auto) 0.400 Neut % (Auto) 69.4 Lymph % (Auto) 22.2 Dolores % (Auto) 6.9 Eos % (Auto) 0.6 Baso % (Auto) 0.5 Absolute Neuts (auto) 5.5 Absolute Lymphs (auto) 1.74 Nucleated RBC % 0 Sodium 138 Potassium 4.4 Chloride 101 Carbon Dioxide 24.7 Anion Gap 12 BUN 15 Creatinine 0.82 Estim Creat Clear Calc 76.04 Est GFR (MDRD) Non-Af 96 BUN/Creatinine Ratio 18.6 Glucose 92 Calcium 9.1 Total Bilirubin 0.67 AST 20 ALT 20 Alkaline Phosphatase 65 Total Protein 6.7 Albumin 4.0 Globulin 2.7 Albumin/Globulin Ratio 1.5 Lipase 28 TSH 1.550 Free T4 1.30 Free T3 pg/dL 2.7 Radiography Diagnostic Testing: Clinical Impression(s) from Imaging Studies Abdomen/Pelvis CTA 04/03/25 14:00 IMPRESSION: Normal CT a of the abdominal aorta and bilateral lower extremity runoff. Other findings as described above. Reading Location: [facility] Discharge Plan Triage Chief Complaint: Numb/Ting ED Provider: Roque Wood Dx/Rx/DC Orders Clinical Impression: Bilateral leg numbness, Chronic back pain, Hx of cholecystectomy Primary Care Provider: Anthony Chamorro Referrals: Anthony Chamorro MD [Primary Care Provider] - Activity Restrictions/Additional Instructions: Your CT scan showed evidence that you have a coronary artery calcification and follow-up on this with your doctor with stress test as we discussed. Your bloodwork did not show acute findings. Follow-up on A1c with your doctor as well. Return with worsening symptoms or concerns. Print Language: New Zealander Disposition Disposition: Home, Self Care What to do if you have Problems For any increased pain, shortness of breath, bleeding, nausea or vomiting, chestpain, or any unexpected problems, contact your Primary Care Provider. Call [facility] ([phone]) or report to the closest Emergency Room. Call 911 if necessary. 04/03/25 9287 <Electronically signed by Roque Wood DO> Cosigner Signature (if applicable): CC: Dr. Anthony Chamorro MD ~ Signed [facility] Work Phone: [phone]) 910-565609-09-2025 History of Present illness Narrative* Manan Packer MD - 03/31/2025 3:00 PM EDT Images from the original note were not included. HPI: This is Mr. Castillo Acosta a 69 year old male from who presents to the [facility] neurology department with a chief complaint of muscle aches and weakness Referring provider: SELF Castillo Acosta is a 69-year-old male presenting with severe abdominal pain following laparoscopic cholecystectomy five weeks ago. He is accompanied by his , who provides additional history. Castillo reports severe pain localized to the area around his umbilicus, described as a burning sensation that is exacerbated by light touch, such as his shirt rubbing against the skin. The pain intensity varies, sometimes reaching a level that confines him to bed for days. He notes that the pain is not constant, currently rating it at a 3/10, but it can become severe with certain movements or pressure. Meng experiences shoulder pain, which he attributes to overcompensating for the abdominal discomfort. Approximately one week post-surgery, he developed small blisters in the painful area, which were initially thought to be ingrown hairs. These blisters have since resolved, but the pain persists. He has tried lidocaine patches and various topical treatments without significant relief. Castillo has consulted his surgeon and primary care physician (PCP) multiple times. Initial treatment with steroids provided no relief. His PCP prescribed gabapentin, starting at 100 mg and increasing to 300 mg three times daily, which also did not alleviate the pain and caused side effects of lightheadedness and feeling "weird." He is currently taking amitriptyline 10 mg at night, along with medications for blood pressure and anxiety, and meloxicam. A CT scan was ordered by his PCP but has not yet been approved. He has no issues with bowel or bladder function and reports that all blood work and vital signs are normal. He has a history of hip replacement and back surgery. Social History: SOCIAL HISTORY[1] ROS: A complete review of systems was performed. All systems negative other than those mentioned inHPI. Physical Exam: Vitals: BP 134/80 Pulse 80 Temp 36.8 C (98.3 F) (Temporal) Wt 65.9 kg (145 lb 4.5 oz) SpO2 99% General appearance: no acute distress. Neurological Exam: MSE: Alert and oriented to person, place, and time. Speech is fluent without dysarthria or aphasia.Recall is intact to recent and remote events. Attention and concentration are intact. Fund of knowledge is intact. Sensation: Intact to light touch, pinprick in affected region approximately right T8-T10 distribution Gait: Normal. Labs: Component Ref Range & Units 2 mo ago C-REACTIVE PROTEIN <8.0 mg/L <3.0 Component Ref Range & Units 2 mo ago SED RATE BY MODIFIED WESTERGREN < OR = 20 mm/h 2 LYME ANTIBODY SCREEN WITH REFLEX TO IMMUNOBLOT Specimen: Blood - Venous blood specimen (specimen) Component Ref Range & Units 2 mo ago Comments Lyme Ab Screen <=0.90 Index <=0.90 Component Ref Range & Units 2 mo ago Auto WBC 3.6 - 10.7 10*3/uL 5.9 RBC 4.40 - 5.90 10*6/uL 4.64 Hemoglobin 13.0 - 18.0 g/dL 14 Hematocrit 40.0 - 52.0 % 41.3 MCV 77.0 - 99.0 fL 89 MCH 26.0 - 34.0 pg 30.2 MCHC 30.5 - 36.0 % 33.9 RDW 11.5 - 15.0 % 12.4 Platelets 140 - 440 10*3/uL 286 omponent Ref Range & Units 2 mo ago Comments SODIUM 136 - 145 mmol/L 139 POTASSIUM 3.5 - 5.1 mmol/L 4.8 Plasma potassium values may be up to 0.5 mmol/L lower than serum values. CHLORIDE 98 - 107 mmol/L 104 CARBON DIOXIDE 23 - 31 mmol/L 26 ANION GAP 3 - 13 mmol/L 9 UREA NITROGEN 9 - 23 mg/dL 18 CREATININE 0.72 - 1.25 mg/dL 0.95 GLUCOSE 82 - 115 mg/dL 103 CALCIUM 8.8 - 10.0 mg/dL 9.3 AST (SGOT) <34 U/L 17 ALT <40 U/L 14 ALKALINE PHOSPHATASE 40 - 150 U/L 59 ALBUMIN 3.4 - 4.8 g/dL 3.8 BILIRUBIN, TOTAL <1.2 mg/dL 0.5 TOTAL PROTEIN 6.4 - 8.3 g/dL 6.7 eGFR >60.0 mL/min/1.73m*2 87.7 Imaging: MRI Head/Brain - Last 2 Impressions No resulted procedures found. MRI lumbar spine 04/15 [facility] (scanned docs) 01/[address] THORACIC SPINE WO IVCON Order: [id number] Impression No acute findings. Other studies: Assessment/Plan : 1. Disturbance of skin sensation (R20.9) - Persistent localized abdominal pain and hypersensitivity following laparoscopic cholecystectomy 5weeks ago; pain not alleviated by prior courses of steroids or gabapentin (titrated up to 300 mg TID), which caused intolerable side effects. - on exam, sensation is intact to light touch and pinprick in the affected area (right T8-T10 disribution, right of midline) - Etiology of his symptoms is unclear; I advised him that post-operative abdominal pain is outside of the scope of neurologic expertise, and is not an issue typically addressed by neurologists - No evidence of shingles based on history. - Increase amitriptyline from 10 mg to 50 mg PO QHS for pain management option; advised patient to reduce to 25 mg if side effects occur. - Advised that there are not diagnostic testing options that are sensitive for diagnosing injury tothoracic sensory nerves. - Discussed that exercises would not address nerve pain; advised against unnecessary manipulation of the area. - Advised to follow up as needed [1] [facility] NoteHNO ID: [id number] Author: MANAN PACKER MD Service: ? Author Type: Physician Type: Progress Notes Filed: 03/31/2025 15:40 Note Text: HPI: This is Mr. Castillo nunez 69 year old male from who presents to the [facility] neurology department with a chief complaint of muscle aches and weakness Referring provider: SELF Castillo Acosta is a 69-year-old male presenting with severe abdominal pain following laparoscopic cholecystectomy five weeks ago. He is accompanied by his , who provides additional history. Castillo reports severe pain localized to the area around his umbilicus, described as a burning sensation that is exacerbated by light touch, such as his shirt rubbing against the skin. The pain intensity varies, sometimes reaching a level that confines him to bed for days. He notes that the pain is not constant, currently rating it at a 3/10, but it can become severe with certain movements or pressure. He also experiences shoulder pain, which he attributes to overcompensating for the abdominal discomfort. Approximately one week post-surgery, he developed small blisters in the painful area, which were initially thought to be ingrown hairs. These blisters have since resolved, but the pain persists. He has tried lidocaine patches and various topical treatments without significant relief. Castillo has consulted his surgeon and primary care physician (PCP) multiple times. Initial treatment with steroids provided no relief. His PCP prescribed gabapentin, starting at 100 mg and increasing to 300 mg three times daily, which also did not alleviate the pain and caused side effects of lightheadedness and feeling "weird." He is currently taking amitriptyline 10 mg at night, along with medications for blood pressure and anxiety, and meloxicam. A CT scan was ordered by his PCP but has not yet been approved. He has no issues with bowel or bladder function and reports that all blood work and vital signs are normal. He has a history of hip replacement and back surgery. Social History: SOCIAL HISTORY[1] ROS: A complete review of systems was performed. All systems negative other than those mentioned in HPI. Physical Exam: Vitals: BP 134/80 Pulse 80 Temp 36.8 ?C (98.3 ?F) (Temporal) Wt 65.9 kg (145 lb 4.5 oz) SpO2 99% General appearance: no acute distress. Neurological Exam: MSE: Alert and oriented to person, place, and time. Speech is fluent without dysarthria or aphasia. Recall is intact to recent and remote events. Attention and concentration are intact. Fund of knowledge is intact. Sensation: Intact to light touch, pinprick in affected region approximately right T8-T10 distribution Gait: Normal. Labs: Component Ref Range AND Units 2 mo ago C-REACTIVE PROTEIN <8.0 mg/L <3.0 Component Ref Range AND Units 2 mo ago SED RATE BY MODIFIED WESTERGREN < OR = 20 mm/h 2 LYME ANTIBODY SCREEN WITH REFLEX TO IMMUNOBLOT Specimen: Blood - Venous blood specimen (specimen) Component Ref Range AND Units 2 mo ago Comments Lyme Ab Screen <=0.90 Index <=0.90 Component Ref Range AND Units 2 mo ago Auto WBC 3.6 - 10.7 10*3/uL 5.9 RBC 4.40 - 5.90 10*6/uL 4.64 Hemoglobin 13.0 - 18.0 g/dL 14 Hematocrit 40.0 - 52.0 % 41.3 MCV 77.0 - 99.0 fL 89 MCH 26.0 - 34.0 pg 30.2 MCHC 30.5 - 36.0 % 33.9 RDW 11.5 - 15.0 % 12.4 Platelets 140 - 440 10*3/uL 286 omponent Ref Range AND Units 2 mo ago Comments SODIUM 136 - 145 mmol/L 139 POTASSIUM 3.5 - 5.1 mmol/L 4.8 Plasma potassium values may be up to 0.5 mmol/L lower than serum values. CHLORIDE 98 - 107 mmol/L 104 CARBON DIOXIDE 23 - 31 mmol/L 26 ANION GAP 3 - 13 mmol/L 9 UREA NITROGEN 9 - 23 mg/dL 18 CREATININE 0.72 - 1.25 mg/dL 0.95 GLUCOSE 82 - 115 mg/dL 103 CALCIUM 8.8 - 10.0 mg/dL 9.3 AST (SGOT) <34 U/L 17 ALT <40 U/L 14 ALKALINE PHOSPHATASE 40 - 150 U/L 59 ALBUMIN 3.4 - 4.8 g/dL 3.8 BILIRUBIN, TOTAL <1.2 mg/dL 0.5 TOTAL PROTEIN 6.4 - 8.3 g/dL 6.7 eGFR >60.0 mL/min/1.73m*2 87.7 Imaging: MRI Head/Brain - Last 2 Impressions No resulted procedures found. MRI lumbar spine 04/15 [facility] (scanned docs) 01/[address] THORACIC SPINE WO IVCON Order: [id number] Impression No acute findings. Other studies: Assessment/Plan : 1. Disturbance of skin sensation (R20.9) - Persistent localized abdominal pain and hypersensitivity following laparoscopic cholecystectomy 5 weeks ago; pain not alleviated by prior courses of steroids or gabapentin (titrated up to 300 mg TID), which caused intolerable side effects. - on exam, sensation is intact to light touch and pinprick in the affected area (right T8-T10 disribution, right of midline) - Etiology of his symptoms is unclear; I advised him that post-operative abdominal pain is outside of the scope of neurologic expertise, and is not an issue typically addressed by neurologists - N (more content not included)...[facility]09-02-2025 Evaluation + Plan note* Assessment & Plan Note - RONAN Valerio CNP - 03/24/2025 6:50 PM EDTAssociated Problem(s): RUQ pain Continues to have right upper quadrant pain. Status post lap devora in January. Vital signs are stable.No nausea or vomiting. Will obtain CT of abdomen to further evaluate since not improving. [phone] Miscellaneous Notes* Assessment & Plan Note - RONAN Valerio CNP - 03/24/2025 6:50 PM EDTAssociated Problem(s): RUQ pain Continues to have right upper quadrant pain. Status post lap devora in January. Vital signs are stable.No nausea or vomiting. Will obtain CT of abdomen to further evaluate since not improving. * Assessment & Plan Note - RONAN Valerio CNP - 03/24/2025 6:42 PM EDTAssociated Problem(s): Nerve pain Unsure etiology of his abdominal pain on the right side. Possibly referred pain. Vital signs are stable. Gabapentin was not very helpful so he is going to self taper discontinue off of that and continue the amitriptyline 10 mg at night. documented in this [facility]09-02-2025 Evaluation + Plan note* Assessment & Plan Note - RONAN Valerio CNP - 03/24/2025 6:42 PM EDTAssociated Problem(s): Nerve pain Unsure etiology of his abdominal pain on the right side. Possibly referred pain. Vital signs are stable. Gabapentin was not very helpful so he is going to self taper discontinue off of that and continue the amitriptyline 10 mg at night. [id number] History of Present illness Narrative* Kaitlin Torrez - 03/24/2025 11:00 AM EDT Patient was identified by name and Date of . * RONAN Valerio CNP - 03/24/2025 11:00 AM EDT Images from the original note were not included. 03/24/2025 Cortney Acosta (: 1955) is a 69 y.o. male , Established patient, here for evaluation of the following chief complaint(s): Follow-up ASSESSMENT/PLAN: 1. Nerve pain Assessment & Plan: Unsure etiology of his abdominal pain on the right side. Possibly referred pain. Vital signs are stable. Gabapentin was not very helpful so he is going to self taper discontinue off of that and continue the amitriptyline 10 mg at night. 2. RUQ pain Assessment & Plan: Continues to have right upper quadrant pain. Status post lap devora in January. Vital signs are stable.No nausea or vomiting. Will obtain CT of abdomen to further evaluate since not improving. Orders: - CT abdomen pelvis wo IV contrast 3. Postoperative abdominal pain - CT abdomen pelvis wo IV contrast Follow up in about 2 weeks (around 04/07/2025). SUBJECTIVE/OBJECTIVE: HPI - Cortney Acosta (: 1955) is a 69 y.o. male , Established patient, here for the evaluation of the following chief complaint(s): Follow-up Presents for follow-up abdominal pain. Had a lap devora end of January. Presented to office a couple weeks ago for pain and rash on abdomen. He had seen the surgeon and was given a short course of steroids. The rash was not very significant but the pain was out of proportion to his physical presentation. He described the pain as burning. We started gabapentin and amitriptyline to help with the pain, however patient reports the gabapentin has not been helpful even though it was increased last week. Appetite been good, no fever. Pain is all on the right side. Upper right shoulder, neck down the thoracic area and has pain in the right upper quad, no n/v. Pain with turning increases the pain in the right upper quadrant. Gabapentin- 300 mg every 8 hours is not really helping. Reports feeling in "a fog" Was given another round of steroids and has a few days left of that. Does not think that helped either. The burning pain he was having on his abdomen he reports is more intermittent instead of constant now, but the right upper quadrant pain is more constant with intermittent worsening. Of note whenI saw him last he was not having any actual abdominal pain and it was just pain on the skin of the abdomen. He is concerned that something has gone wrong with his surgery. He is still not back to work and will need an additional couple weeks off. Current Medications[1] Review of Systems Constitutional: Positive for fatigue. Negative for appetite change, chills and fever. HENT: Negative. Respiratory: Negative. Cardiovascular: Negative. Gastrointestinal: Positive for abdominal pain. Negative for blood in stool, constipation, diarrhea,nausea and vomiting. Genitourinary: Negative for difficulty urinating. Psychiatric/Behavioral: Positive for dysphoric mood. Negative for sleep disturbance. The patient isnervous/anxious. Reports sleeping better with the amitriptyline Vitals: 03/24/25 1051 BP: 136/85 Pulse: 80 Resp: 20 Temp: 37.4 C (99.3 F) TempSrc: Infrared SpO2: 97% Weight: 141 lb 9.6 oz (64.2 kg) Physical Exam Constitutional: General: He is not in acute distress. Appearance: Normal appearance. He is not ill-appearing. HENT: Head: Normocephalic and atraumatic. Cardiovascular: Rate and Rhythm: Normal rate and regular rhythm. Pulses: Normal pulses. Heart sounds: Normal heart sounds. Pulmonary: Effort: Pulmonary effort is normal. Breath sounds: Normal breath sounds. Abdominal: Palpations: Abdomen is soft. Tenderness: There is abdominal tenderness in the right upper quadrant. Musculoskeletal: Arms: Skin: General: Skin is warm and dry. Findings: No rash. Neurological: Mental Status: He is alert and oriented to person, place, and time. Psychiatric: Attention and Perception: Attention and perception normal. Mood and Affect: Affect normal. Mood is anxious. Speech: Speech normal. Behavior: Behavior normal. Behavior is cooperative. Cognition and Memory: Cognition and memory normal. Judgment: Judgment normal. An electronic signature was used to authenticate this note. Ilan Tariq APRN - CHUN 03/24/2025 7:01 PM [1] Current Outpatient Medications Medication Sig Dispense Refill acetaminophen (Tylenol) 500 MG tablet Take 1,000 mg by mouth every 8 hours as needed for mild pain (1-3). amitriptyline (Elavil) 10 MG tablet Take 1 tablet (10 mg) by mouth Nightly. 30 tablet 0 busPIRone (Buspar) 7.5 MG tablet Take 1 tablet (7.5 mg) by mouth 2 times daily. 180 tablet 1 gabapentin (Neurontin) 300 MG capsule Take 1 capsule (300 mg) by mouth 3 times daily. 90 capsule 0 Glycerin, Adult, 2 g suppository Insert 1 suppository (2 g) into the rectum Daily as needed (constipation). 12 suppository 0 lidocaine (Lidoderm) 5 % patch Apply 1 patch topically daily. Apply to painful area 12 hours per day, remove for 12 hours. 30 patch 2 losartan (Cozaar) 100 MG tablet Take 0.5 tablets (50 mg) by mouth Nightly. meloxicam (Mobic) 15 MG tablet TAKE 1 TABLET BY MOUTH EVERY MORNING WITH FOOD TO REDUCE SWELLING. DO NOT TAKE WITH OTHER NSAIDS (IBUPROFEN, ADVIL, MOTRIN, ALEVE,OR NAPROXEN) 30 tablet 3 ondansetron (Zofran) 4 MG tablet Take 1 tablet (4 mg) by mouth every 8 hours as needed for nausea or vomiting. 30 tablet 0 polyethylene glycol, PEG, 3350 (MiraLax) 17 GM/SCOOP powder Take 17 g by mouth Daily as needed (constipation). 116 g 0 predniSONE (Deltasone) 10 MG tablet Take 4 tablets (40 mg) by mouth daily for 5 days. 20 tablet 0 predniSONE (Deltasone) 20 MG tablet Take 3 tabs (60mg) daily for 5 days, then take 2 tabs (40mg) daily for 3 days, then take 1 tab (20mg) daily for 2 days. 23 tablet 0 rosuvastatin (Crestor) 5 MG tablet Take 1 tablet (5 mg) by mouth daily. 90 tablet 1 tiZANidine (Zanaflex) 2 MG tablet Take 1 tablet (2 mg) by mouth every 8 hours as needed for muscle spasms for up to 10 days. 30 tablet 0 No current facility-administered medications for this visit. documented in this [facility]09-02-2025 Instructions* Patient Instructions* RONAN Valerio CNP - 03/24/2025 11:00 AM EDT Decrease gabapentin to twice daily, then continue to gradually decrease the dose every 3 days. Takethe amitriptyline at bedtime consistently. Continue prednisone documented in this [facility]08-25-2025 Evaluation + Plan note* Assessment & Plan Note - RONAN Valerio CNP - 03/16/2025 5:42 PM EDTAssociated Problem(s): Nerve pain Possible shingles, however very minimal rash with that. Pain is described as burning. No underlyingtenderness, suspect superficial neuropathy of the skin. Lidocaine patch as directed, start gabapentin 100 mg 3 times daily x 14 days. OARRS reviewed and consistent with treatment plan. Start amitriptyline 10 mg nightly to help with nerve pain and will also help with his degenerative arthritis pain.Close follow-up in 1-1/2 weeks [id number] Miscellaneous Notes* Assessment & Plan Note - RONAN Valerio CNP - 03/16/2025 5:42 PM EDTAssociated Problem(s): Nerve pain Possible shingles, however very minimal rash with that. Pain is described as burning. No underlyingtenderness, suspect superficial neuropathy of the skin. Lidocaine patch as directed, start gabapentin 100 mg 3 times daily x 14 days. OARRS reviewed and consistent with treatment plan. Start amitriptyline 10 mg nightly to help with nerve pain and will also help with his degenerative arthritis pain.Close follow-up in 1-1/2 weeks * Assessment & Plan Note - RONAN Valerio CNP - 03/16/2025 5:40 PM EDTAssociated Problem(s): Muscle spasm Tizanidine for muscle spasms of the neck. Cautioned concurrent use with gabapentin * Assessment & Plan Note - RONAN Valerio CNP - 03/16/2025 5:38 PM EDTAssociated Problem(s): Primary hypertension Usually well-controlled on his current medications. May be increased today due to pain. Continue losartan 50 mg nightly, follow-up as directed for blood pressure * Assessment & Plan Note - RONAN Valerio CNP - 03/16/2025 5:38 PM EDTAssociated Problem(s): Anxiety Continue BuSpar 7.5 mg twice daily, start amitriptyline 10 mg at bedtime documented in this [facility]08-25-2025 Evaluation + Plan note* Assessment & Plan Note - RONAN Valerio CNP - 03/16/2025 5:40 PM EDTAssociated Problem(s): Muscle spasm Tizanidine for muscle spasms of the neck. Cautioned concurrent use with gabapentin [id number] Evaluation + Plan note* Assessment & Plan Note - RONAN Valerio CNP - 03/16/2025 5:38 PM EDTAssociated Problem(s): Primary hypertension Usually well-controlled on his current medications. May be increased today due to pain. Continue losartan 50 mg nightly, follow-up as directed for blood pressure [id number] Evaluation + Plan note* Assessment & Plan Note - RONAN Valerio CNP - 03/16/2025 5:38 PM EDTAssociated Problem(s): Anxiety Continue BuSpar 7.5 mg twice daily, start amitriptyline 10 mg at bedtime [id number] History of Present illness Narrative* Kaitlin Torrez - 03/16/2025 9:00 AM EDT Patient was identified by name and Date of . * RONAN Valerio CNP - 03/16/2025 9:00 AM EDT Images from the original note were not included. 03/16/2025 Cortney Acosta (: 1955) is a 69 y.o. male , Established patient, here for evaluation of the following chief complaint(s): Abdominal Pain (Surface-shingles?) ASSESSMENT/PLAN: 1. Nerve pain Assessment & Plan: Possible shingles, however very minimal rash with that. Pain is described as burning. No underlyingtenderness, suspect superficial neuropathy of the skin. Lidocaine patch as directed, start gabapentin 100 mg 3 times daily x 14 days. OARRS reviewed and consistent with treatment plan. Start amitriptyline 10 mg nightly to help with nerve pain and will also help with his degenerative arthritis pain.Close follow-up in 1-1/2 weeks Orders: - gabapentin (Neurontin) 100 MG capsule; Take 1 capsule (100 mg) by mouth 3 times daily for 14 days., Starting Sun03/16/2025, Until Sun03/30/2025, Normal - amitriptyline (Elavil) 10 MG tablet; Take 1 tablet (10 mg) by mouth Nightly., Starting Sun03/16/2025, Until Sun04/15/2025, Normal - lidocaine (Lidoderm) 5 % patch; Apply 1 patch topically daily. Apply to painful area 12 hours perday, remove for 12 hours., Starting Sun03/16/2025, Until 06/14/2025, Normal 2. Anxiety Assessment & Plan: Continue BuSpar 7.5 mg twice daily, start amitriptyline 10 mg at bedtime Orders: - amitriptyline (Elavil) 10 MG tablet; Take 1 tablet (10 mg) by mouth Nightly., Starting Sun03/16/2025, Until Sun04/15/2025, Normal 3. Muscle spasm Assessment & Plan: Tizanidine for muscle spasms of the neck. Cautioned concurrent use with gabapentin Orders: - tiZANidine (Zanaflex) 2 MG tablet; Take 1 tablet (2 mg) by mouth every 8 hours as needed for muscle spasms for up to 10 days., Starting Sun03/16/2025, Until Di 03/26/2025 at 2359, Normal 4. Primary hypertension Assessment & Plan: Usually well-controlled on his current medications. May be increased today due to pain. Continue losartan 50 mg nightly, follow-up as directed for blood pressure Follow up in about 2 weeks (around 03/30/2025). SUBJECTIVE/OBJECTIVE: [facility] - Cortney Acosta (: 1955) is a 69 y.o. male , Established patient, here for the evaluation of the following chief complaint(s): Abdominal Pain (Surface-shingles?) Presents for rash that showed up on his abdomen after surgery February 19, 2025. Had a lap devora. Rash showed up after surgery at some point within that first. Week. Reports had red dots in a patch. States it hurts to touch it. Reports that he was given steroids from the surgeon last week. No fever. Has gotten chilled. The skin gets warm to the area. Nauseated. Thinks its from the pain. Eating ok. Bowels moving. Reports the pain is a burning pain, on the surface of the skin and is not deep. Abdomen is not tender to touch. Has tried topical lidocaine without much relief, Tylenol Reports his mood has been down and he is anxious to. He would like to take something for depression. Denies any suicidal or homicidal ideation. He has been off work due to his recent surgery and willneed a couple more days off. He reports the right side of his neck has been a little bit stiff has been getting a headache from it. Current Medications[1] Review of Systems Constitutional: Negative. Respiratory: Negative. Cardiovascular: Negative. Gastrointestinal: Positive for nausea (Occasional). Negative for abdominal pain, constipation, diarrhea and vomiting. Genitourinary: Negative for difficulty urinating. Musculoskeletal: Positive for back pain and neck pain. Skin: Positive for rash. Psychiatric/Behavioral: Positive for dysphoric mood and sleep disturbance. Negative for self-injuryand suicidal ideas. The patient is nervous/anxious. Vitals: 03/16/25 0906 03/16/25 0959 BP: (!) 174/77 (!) 146/76 Pulse: 73 Resp: 18 Temp: 37.2 C (98.9 F) TempSrc: Infrared SpO2: 97% Weight: 137 lb (62.1 kg) Physical Exam Vitals reviewed. Constitutional: General: He is not in acute distress. Appearance: Normal appearance. He is not ill-appearing. HENT: Head: Normocephalic and atraumatic. Mouth/Throat: Mouth: Mucous membranes are moist. Pharynx: Oropharynx is clear. No posterior oropharyngeal erythema. Eyes: Conjunctiva/sclera: Conjunctivae normal. Neck: Cardiovascular: Rate and Rhythm: Normal rate and regular rhythm. Pulses: Normal pulses. Heart sounds: Normal heart sounds. Pulmonary: Effort: Pulmonary effort is normal. Breath sounds: Normal breath sounds. Abdominal: General: Bowel sounds are normal. Tenderness: There is no abdominal tenderness. Musculoskeletal: Right lower leg: No edema. Left lower leg: No edema. Lymphadenopathy: Cervical: No cervical adenopathy. Skin: Comments: Lap sites well-healed Neurological: Mental Status: He is alert and oriented to person, place, and time. Psychiatric: Mood and Affect: Mood normal. Behavior: Behavior normal. Thought Content: Thought content normal. An electronic signature was used to authenticate this note. RONAN Lagunas CNP 03/16/2025 5:43 PM [1] Current Outpatient Medications Medication Sig Dispense Refill losartan (Cozaar) 100 MG tablet Take 0.5 tablets (50 mg) by mouth Nightly. meloxicam (Mobic) 15 MG tablet TAKE 1 TABLET BY MOUTH EVERY MORNING WITH FOOD TO REDUCE SWELLING. DO NOT TAKE WITH OTHER NSAIDS (IBUPROFEN, ADVIL, MOTRIN, ALEVE,OR NAPROXEN) 30 tablet 3 acetaminophen (Tylenol) 500 MG tablet Take 1,000 mg by mouth every 8 hours as needed for mild pain (1-3). amitriptyline (Elavil) 10 MG tablet Take 1 tablet (10 mg) by mouth Nightly. 30 tablet 0 busPIRone (Buspar) 7.5 MG tablet Take 1 tablet (7.5 mg) by mouth 2 times daily. (Patient not taking: Reported on 03/10/2025) 180 tablet 1 gabapentin (Neurontin) 100 MG capsule Take 1 capsule (100 mg) by mouth 3 times daily for 14 days. 42 capsule 0 Glycerin, Adult, 2 g suppository Insert 1 suppository (2 g) into the rectum Daily as needed (constipation). (Patient not taking: Reported on 03/10/2025) 12 suppository 0 lidocaine (Lidoderm) 5 % patch Apply 1 patch topically daily. Apply to painful area 12 hours per day, remove for 12 hours. 30 patch 2 ondansetron (Zofran) 4 MG tablet Take 1 tablet (4 mg) by mouth every 8 hours as needed for nausea or vomiting. (Patient not taking: Reported on 03/10/2025) 30 tablet 0 polyethylene glycol, PEG, 3350 (MiraLax) 17 GM/SCOOP powder Take 17 g by mouth Daily as needed (constipation). (Patient not taking: Reported on 03/10/2025) 116 g 0 rosuvastatin (Crestor) 5 MG tablet Take 1 tablet (5 mg) by mouth daily. (Patient not taking: Reported on 03/10/2025) 90 tablet 1 tiZANidine (Zanaflex) 2 MG tablet Take 1 tablet (2 mg) by mouth every 8 hours as needed for muscle spasms for up to 10 days. 30 tablet 0 No current facility-administered medications for this visit. documented in this [facility]08-22-2025 History of Present illness Narrative* Jelly Mcgarry MA - 03/13/2025 8:30 AM EDT The patient, Cortney Acosta, identity was verified by name and . Supervising provider for clinic visit: VERONIKA Hernandez Chief Complaint Patient presents with Blood Pressure Check Reason for visit: Elevated BP Reading at last visit Cortney Acosta has validated current medications Patient states compliant with medications as written: Yes BP medication taken prior to this visit? Yes Are you having any symptoms? No Current Blood Pressure: 136/77 Current Heart Rate: 57 Did Blood Pressure need rechecked: no Second Blood Pressure Reading: Second Heart Rate: Assessment/Plan: Hypertension - bp elevated at specialist office on so we had him come in for bp check normal Future Appointments Date Time Provider Department Center 03/24/2025 2:20 PM RONAN Valerio CNP [facility] 07/13/2025 7:40 [facility] provider blood pressure readings? Yes * RONAN [place] CNP - 03/13/2025 8:30 AM EDT Heart rate and blood pressure are good at 136/77 and 57 bpm. * Jelly Mcgarry MA - 03/13/2025 8:30 AM EDT Pt notified documented in this [facility]08-19-2025 History of Present illness Narrative* Jazmyn Romero MA - 03/10/2025 8:30 AM EDT We want to inform you that your patient's blood pressure was noted to be elevated in our office today. We thank you for trusting us with your patient's health. Last BP: BP Readings from Last 2 Encounters: 03/10/25 (!) 165/86 03/03/25 (!) 148/87 * RONAN Corbett CNP - 03/10/2025 8:30 AM EDT Patient ID: Cortney Acosta [id number] 69 y.o. 1955 Post Operative: Surgery Date 02/19/25. Surgical Procedure Laparoscopic cholecystectomy performed by Dr. Cool. Patient overall doing okay. Main complaint is rash on abdomen. He states from gallbladder standpoint doing well no nausea or emesis. No bowel concerns. Main complaint is this rash/raised bumps on abdomen and associated burning pain. He reports started after his surgery. He reports since noting he states he feels the pain has worsened. He states had to leave work early due to the pain. He states pain is below incision sites. Its worse when anything rubs up against his incision sites. Incision(s) healing well. Inferior to incision sites noted small red raised lesions. Patient has r eturned back to normal activities and regular diet. Pathology GALLBLADDER, CHOLECYSTECTOMY: - MINIMAL CHRONIC CHOLECYSTITIS. Patient requesting time off work for additional week and will provide. In regards to rash/ and pain will trial burst dose of steroids for 5 days to help. Instructed if no improvement recommend following up with PCP for further evaluation. Patient agreeable. Overall patient is doing well and I can see them on a p.r.n basis. No orders of the defined types were placed in this encounter. RONAN Fair CNP documented in this [facility]08-19-2025 History of Present illness Narrative* Jazmyn Romero MA - 03/10/2025 8:30 AM EDT We want to inform you that your patient's blood pressure was noted to be elevated in our office today. We thank you for trusting us with your patient's health. Last BP: BP Readings from Last 2 Encounters: 03/10/25 (!) 165/86 03/03/25 (!) 148/87 * RONAN Corbett CNP - 03/10/2025 8:30 AM EDT Patient ID: Cortney Acosta [id number] 69 y.o. 1955 Post Operative: Surgery Date 02/19/25. Surgical Procedure Laparoscopic cholecystectomy performed by Dr. Cool. Patient overall doing okay. Main complaint is rash on abdomen. He states from gallbladder standpoint doing well no nausea or emesis. No bowel concerns. Main complaint is this rash/raised bumps on abdomen and associated burning pain. He reports started after his surgery. He reports since noting he states he feels the pain has worsened. He states had to leave work early due to the pain. He states pain is below incision sites. Its worse when anything rubs up against his incision sites. Incision(s) healing well. Inferior to incision sites noted small red raised lesions. Patient has r eturned back to normal activities and regular diet. Pathology GALLBLADDER, CHOLECYSTECTOMY: - MINIMAL CHRONIC CHOLECYSTITIS. Patient requesting time off work for additional week and will provide. In regards to rash/ and pain will trial burst dose of steroids for 5 days to help. Instructed if no improvement recommend following up with PCP for further evaluation. Patient agreeable. Overall patient is doing well and I can see them on a p.r.n basis. No orders of the defined types were placed in this encounter. RONAN Fair CNP * Jelly Mcgarry MA - 03/10/2025 8:30 AM EDT Pt sched for bp check on Sunday03/13/25 documented in this [place] [id number] Emergency department Note* Kavin Westbrook MD - 03/03/2025 3:40 PM EDT EMERGENCY DEPARTMENT ENCOUNTER Pt Name: Cortney Acosta Birthdate 1955 Date of evaluation: 03/03/2025 CHIEF COMPLAINT Chief Complaint Patient presents with Constipation HISTORY OF PRESENT ILLNESS History provided by: Spouse and patient Cortney Acosta is a 69 y.o. male who presents to the emergency department with constipation, last bowel movement was 3 days ago. No vomiting no diarrhea no fever no alcohol use recently. He did take anoxycodone Sunday. Having intermittent lower abdominal cramping. It does not get severe. REVIEW OF SYSTEMS Review of Systems Past Medical History: 04/07/2024: Acute midline low back pain without sciatica No date: Arthritis No date: Chronic back pain No date: Chronic pain No date: Degenerative joint disease of right hip No date: Hypertension 02/13/2024: Muscle spasm 08/15/2024: Rib pain on right side 02/13/2024: Upper back pain 08/15/2024: Viral URI with cough 04/07/2024: Weakness of both lower extremities Past Surgical History: 05/26/2024: BACK SURGERY 20 years ago: CARPAL TUNNEL RELEASE; Right No date: COLONOSCOPY No date: COLONOSCOPY 02/19/2025: LAP,CHOLECYSTECTOMY (HISTORICAL) 02/28/2022: TOTAL HIP ARTHROPLASTY; Right Comment: RIGHT TOTAL HIP ARTHROPLASTY WITH DIRECT ANDTERIOR APPROACH CURRENT MEDICATIONS Previous Medications ACETAMINOPHEN (TYLENOL) 500 MG TABLET Take 1,000 mg by mouth every 8 hours as needed for mild pain (1-3). BUSPIRONE (BUSPAR) 7.5 MG TABLET Take 1 tablet (7.5 mg) by mouth 2 times daily. LOSARTAN (COZAAR) 100 MG TABLET Take 0.5 tablets (50 mg) by mouth Nightly. MELOXICAM (MOBIC) 15 MG TABLET TAKE 1 TABLET BY MOUTH EVERY MORNING WITH FOOD TO REDUCE SWELLING. DO NOT TAKE WITH OTHER NSAIDS (IBUPROFEN, ADVIL, MOTRIN, ALEVE,OR NAPROXEN) ONDANSETRON (ZOFRAN) 4 MG TABLET Take 1 tablet (4 mg) by mouth every 8 hours as needed for nausea or vomiting. ROSUVASTATIN (CRESTOR) 5 MG TABLET Take 1 tablet (5 mg) by mouth daily. ALLERGIES Penicillins SOCIAL HISTORY Social History Socioeconomic History Marital status: Spouse name: Not on file Number of children: Not on file Years of education: Not on file Highest education level: Not on file Occupational History Not on file Tobacco Use Smoking status: Never Smokeless tobacco: Former Quit date: 12/2023 Vaping Use Vaping status: Never Used Substance and Sexual Activity Alcohol use: Not Currently Alcohol/week: 2.0 standard drinks of alcohol Types: 2 Standard drinks or equivalent per week Comment: Very occasional Drug use: No Sexual activity: Not on file Other Topics Concern Not on file Social History Narrative Lives at home with - of 30 years Rebekah - 1 boy son previous-partner. 1 child from previous partner son- lives in [place] (somewhat estranged). 8 grandkids and 1 great. 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 Rebekah at home- good health- fibromylgia. Social Drivers of Health Financial Resource Strain: Low Risk (12/11/2024) Overall Financial Resource Strain (CARDIA) Difficulty of Paying Living Expenses: Not very hard Food Insecurity: No Food Insecurity (12/11/2024) Hunger Vital Sign Worried About Running Out of Food in the Last Year: Never true Ran Out of Food in the Last Year: Never true Transportation Needs: No Transportation Needs (12/11/2024) PRAPARE - Transportation Lack of Transportation (Medical): No Lack of Transportation (Non-Medical): No Physical Activity: Sufficiently Active (12/11/2024) Exercise Vital Sign Days of Exercise per Week: 7 days Minutes of Exercise per Session: 150+ min Stress: No Stress Concern Present (12/11/2024) [employer] - Occupational Stress Questionnaire Feeling of Stress : Not at all Social Connections: Moderately Isolated (12/11/2024) Social Connection and Isolation Panel [NHANES] Frequency of Communication with Friends and Family: More than three times a week Frequency of Social Gatherings with Friends and Family: Three times a week Attends Zoroastrian Services: Never Active Member of Clubs or Organizations: No Attends Club or Organization Meetings: Never Marital Status: Intimate Partner Violence: Not At Risk (02/19/2025) Humiliation, Afraid, Rape, and Kick questionnaire Fear of Current or Ex-Partner: No Emotionally Abused: No Physically Abused: No Sexually Abused: No Housing Stability: Low Risk (12/11/2024) Housing Stability Vital Sign Unable to Pay for Housing in the Last Year: No Number of Times Moved in the Last Year: 0 Homeless in the Last Year: No PHYSICAL EXAM Vitals: 03/03/25 1552 BP: (!) 156/98 BP Location: Right arm Patient Position: Lying Pulse: 65 Resp: 16 Temp: 36.9 C (98.5 F) TempSrc: Oral SpO2: 100% Weight: 63 kg (139 lb) Height: 1.651 m (5' 5") Physical Exam Vitals and nursing note reviewed. Constitutional: Appearance: He is normal weight. He is not toxic-appearing. Abdominal: General: A surgical scar is present. Bowel sounds are normal. There is no distension. Palpations: Abdomen is soft. There is no pulsatile mass. Tenderness: There is no right CVA tenderness, left CVA tenderness or guarding. Negative signs include Cardenas's sign, McBurney's sign, psoas sign and obturator sign. Hernia: No hernia is present. Skin: Coloration: Skin is not jaundiced. Neurological: Mental Status: He is alert. Psychiatric: Behavior: Behavior normal. Thought Content: Thought content normal. SCREENINGS [place] Coma Scale Best Eye Response: Spontaneous Best Verbal Response: Oriented Best Motor Response: Follows commands [place] Coma Scale Score: 15 Medical decision making DIAGNOSTIC RESULTS Procedures/EKG: Physician EKG interpretation can be found in [facility] if done Radiologist results reviewed: No orders to display LABS: Labs Reviewed CBC WITH AUTO DIFFERENTIAL - Abnormal Result Value Auto WBC 8.6 RBC 4.30 (*) Hemoglobin 13.3 Hematocrit 38.3 (*) MCV 89.1 MCH 30.9 MCHC 34.7 RDW 13.2 Platelets 385 MPV 9.1 nRBC 0.0 Neutrophils Relative 67.0 Lymphocytes Relative 22.9 Monocytes Relative 7.1 Eosinophils Relative 2.1 Basophils Relative 0.6 Immature Grans % 0.3 Neutrophils Absolute 5.8 Lymphocytes Absolute 2.0 Monocytes Absolute 0.6 Eosinophils Absolute 0.2 Basophils Absolute 0.1 Immature Grans Absolute 0.0 COMPREHENSIVE METABOLIC PANEL - Normal SODIUM 138 POTASSIUM 4.5 CHLORIDE 100 CARBON DIOXIDE 30 ANION GAP 8 UREA NITROGEN 18 CREATININE 0.97 GLUCOSE 91 CALCIUM 9.2 AST (SGOT) 27 ALT 19 ALKALINE PHOSPHATASE 96 ALBUMIN 3.6 BILIRUBIN, TOTAL 0.4 TOTAL PROTEIN 6.9 eGFR 85.6 LIPASE - Normal LIPASE 30 COMPLETE URINALYSIS WITH REFLEX TO CULTURE - Normal Color, Urine Colorless Clarity, Urine Clear pH, Urine 8.0 Leukocytes, Urine Negative Nitrite, Urine Negative Protein, Urine Negative Glucose, Urine Normal Bilirubin, Urine Negative Ketones, Urine Negative Urobilinogen, Urine Normal Blood, Urine Negative SPECIFIC GRAVITY OF URINE (NUMERIC) 1.005 Narrative: A specimen with <=10 WBC is not consistent with inflammation. This specimen will not reflex to aurine culture. C-REACTIVE PROTEIN - Normal C REACTIVE PROTEIN 3.1 RADIOLOGY : Medications ordered: Medications lactulose (Chronulac) 10 GM/15ML solution 20 g (20 g Oral Given 03/03/25 162) acetaminophen (Tylenol) tablet 650 mg (650 mg Oral Given 03/03/25 1622) Diagnoses as of 03/03/25 1813 Lower abdominal pain Constipation, unspecified constipation type * No order type specified * Our workup consisted of ordering/reviewing: Orders Placed This Encounter Procedures CBC auto differential Comprehensive metabolic panel Lipase Urinalysis Complete with reflex to Culture C-reactive protein Insert peripheral IV MDM: 69 y.o. presented with abdominal pain. The differential diagnosis considered: Constipation, hepatitis, pancreatitis, UTI, kidney stone, infection, inflammation. Diagnostic tests considered but not performed: CT abdomen and pelvis. No SIRS criteria on vital signs. REVAL: CRITICAL CARE TIME PROCEDURES: Procedures FINAL IMPRESSION 1. Lower abdominal pain 2. Constipation, unspecified constipation type DISPOSITION/PLAN DISPOSITION Discharge 03/03/2025 06:10:01 PM PATIENT REFERRED TO: Anthony Chamorro MD [address] [place] [address], [facility] [id number] In 8 days I prescribed: New Prescriptions GLYCERIN, ADULT, 2 G SUPPOSITORY Insert 1 suppository (2 g) into the rectum Daily as needed (constipation). POLYETHYLENE GLYCOL, PEG, 3350 (MIRALAX) 17 GM/SCOOP POWDER Take 17 g by mouth Daily as needed (constipation). (Comment: this report has been produced using speech recognition software and may contain errors related to that system including errors in grammar, punctuation, and spelling, as well as words and phrases) Kavin Westbrook MD (electronically signed) Kavin Westbrook MD 03/03/25 1813 * Antonina Sterling RN - 03/03/2025 3:40 PM EDT Pt ambulatory to room 9 with c/o constipation for 4 days. Pt reports that he has had recent gall bladder surgery but has not taken meds for 1+ weeks. Pt reports having general abdominal pain. documented in this [facility]08-12-2025 Emergency department Triage note* Antonina Sterling RN - 03/03/2025 3:40 PM EDT Pt ambulatory to room 9 with c/o constipation for 4 days. Pt reports that he has had recent gall bladder surgery but has not taken meds for 1+ weeks. Pt reports having general abdominal pain. [id number] Phys[facility] Emergency department Note* Kavin Westbrook MD - 03/03/2025 3:40 PM EDT EMERGENCY DEPARTMENT ENCOUNTER Pt Name: Cortney Acosta Birthdate 1955 Date of evaluation: 03/03/2025 CHIEF COMPLAINT Chief Complaint Patient presents with Constipation HISTORY OF PRESENT ILLNESS History provided by: Spouse and patient Cortney Acosta is a 69 y.o. male who presents to the emergency department with constipation, last bowel movement was 3 days ago. No vomiting no diarrhea no fever no alcohol use recently. He did take anoxycodone Sunday. Having intermittent lower abdominal cramping. It does not get severe. REVIEW OF SYSTEMS Review of Systems Past Medical History: 04/07/2024: Acute midline low back pain without sciatica No date: Arthritis No date: Chronic back pain No date: Chronic pain No date: Degenerative joint disease of right hip No date: Hypertension 02/13/2024: Muscle spasm 08/15/2024: Rib pain on right side 02/13/2024: Upper back pain 08/15/2024: Viral URI with cough 04/07/2024: Weakness of both lower extremities Past Surgical History: 05/26/2024: BACK SURGERY 20 years ago: CARPAL TUNNEL RELEASE; Right No date: COLONOSCOPY No date: COLONOSCOPY 02/19/2025: LAP,CHOLECYSTECTOMY (HISTORICAL) 02/28/2022: TOTAL HIP ARTHROPLASTY; Right Comment: RIGHT TOTAL HIP ARTHROPLASTY WITH DIRECT ANDTERIOR APPROACH CURRENT MEDICATIONS Previous Medications ACETAMINOPHEN (TYLENOL) 500 MG TABLET Take 1,000 mg by mouth every 8 hours as needed for mild pain (1-3). BUSPIRONE (BUSPAR) 7.5 MG TABLET Take 1 tablet (7.5 mg) by mouth 2 times daily. LOSARTAN (COZAAR) 100 MG TABLET Take 0.5 tablets (50 mg) by mouth Nightly. MELOXICAM (MOBIC) 15 MG TABLET TAKE 1 TABLET BY MOUTH EVERY MORNING WITH FOOD TO REDUCE SWELLING. DO NOT TAKE WITH OTHER NSAIDS (IBUPROFEN, ADVIL, MOTRIN, ALEVE,OR NAPROXEN) ONDANSETRON (ZOFRAN) 4 MG TABLET Take 1 tablet (4 mg) by mouth every 8 hours as needed for nausea or vomiting. ROSUVASTATIN (CRESTOR) 5 MG TABLET Take 1 tablet (5 mg) by mouth daily. ALLERGIES Penicillins SOCIAL HISTORY Social History Socioeconomic History Marital status: Spouse name: Not on file Number of children: Not on file Years of education: Not on file Highest education level: Not on file Occupational History Not on file Tobacco Use Smoking status: Never Smokeless tobacco: Former Quit date: 12/2023 Vaping Use Vaping status: Never Used Substance and Sexual Activity Alcohol use: Not Currently Alcohol/week: 2.0 standard drinks of alcohol Types: 2 Standard drinks or equivalent per week Comment: Very occasional Drug use: No Sexual activity: Not on file Other Topics Concern Not on file Social History Narrative Lives at home with - of 30 years Rebekah - 1 boy son previous-partner. 1 child from previous partner son- lives in [place] (somewhat estranged). 8 grandkids and 1 great. 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 Rebekah at home- good health- fibromylgia. Social Drivers of Health Financial Resource Strain: Low Risk (12/11/2024) Overall Financial Resource Strain (CARDIA) Difficulty of Paying Living Expenses: Not very hard Food Insecurity: No Food Insecurity (12/11/2024) Hunger Vital Sign Worried About Running Out of Food in the Last Year: Never true Ran Out of Food in the Last Year: Never true Transportation Needs: No Transportation Needs (12/11/2024) PRAPARE - Transportation Lack of Transportation (Medical): No Lack of Transportation (Non-Medical): No Physical Activity: Sufficiently Active (12/11/2024) Exercise Vital Sign Days of Exercise per Week: 7 days Minutes of Exercise per Session: 150+ min Stress: No Stress Concern Present (12/11/2024) [employer] - Occupational Stress Questionnaire Feeling of Stress : Not at all Social Connections: Moderately Isolated (12/11/2024) Social Connection and Isolation Panel [NHANES] Frequency of Communication with Friends and Family: More than three times a week Frequency of Social Gatherings with Friends and Family: Three times a week Attends Zoroastrian Services: Never Active Member of Clubs or Organizations: No Attends Club or Organization Meetings: Never Marital Status: Intimate Partner Violence: Not At Risk (02/19/2025) Humiliation, Afraid, Rape, and Kick questionnaire Fear of Current or Ex-Partner: No Emotionally Abused: No Physically Abused: No Sexually Abused: No Housing Stability: Low Risk (12/11/2024) Housing Stability Vital Sign Unable to Pay for Housing in the Last Year: No Number of Times Moved in the Last Year: 0 Homeless in the Last Year: No PHYSICAL EXAM Vitals: 03/03/25 1552 BP: (!) 156/98 BP Location: Right arm Patient Position: Lying Pulse: 65 Resp: 16 Temp: 36.9 C (98.5 F) TempSrc: Oral SpO2: 100% Weight: 63 kg (139 lb) Height: 1.651 m (5' 5") Physical Exam Vitals and nursing note reviewed. Constitutional: Appearance: He is normal weight. He is not toxic-appearing. Abdominal: General: A surgical scar is present. Bowel sounds are normal. There is no distension. Palpations: Abdomen is soft. There is no pulsatile mass. Tenderness: There is no right CVA tenderness, left CVA tenderness or guarding. Negative signs include Cardenas's sign, McBurney's sign, psoas sign and obturator sign. Hernia: No hernia is present. Skin: Coloration: Skin is not jaundiced. Neurological: Mental Status: He is alert. Psychiatric: Behavior: Behavior normal. Thought Content: Thought content normal. SCREENINGS [place] Coma Scale Best Eye Response: Spontaneous Best Verbal Response: Oriented Best Motor Response: Follows commands [place] Coma Scale Score: 15 Medical decision making DIAGNOSTIC RESULTS Procedures/EKG: Physician EKG interpretation can be found in [facility] if done Radiologist results reviewed: No orders to display LABS: Labs Reviewed CBC WITH AUTO DIFFERENTIAL - Abnormal Result Value Auto WBC 8.6 RBC 4.30 (*) Hemoglobin 13.3 Hematocrit 38.3 (*) MCV 89.1 MCH 30.9 MCHC 34.7 RDW 13.2 Platelets 385 MPV 9.1 nRBC 0.0 Neutrophils Relative 67.0 Lymphocytes Relative 22.9 Monocytes Relative 7.1 Eosinophils Relative 2.1 Basophils Relative 0.6 Immature Grans % 0.3 Neutrophils Absolute 5.8 Lymphocytes Absolute 2.0 Monocytes Absolute 0.6 Eosinophils Absolute 0.2 Basophils Absolute 0.1 Immature Grans Absolute 0.0 COMPREHENSIVE METABOLIC PANEL - Normal SODIUM 138 POTASSIUM 4.5 CHLORIDE 100 CARBON DIOXIDE 30 ANION GAP 8 UREA NITROGEN 18 CREATININE 0.97 GLUCOSE 91 CALCIUM 9.2 AST (SGOT) 27 ALT 19 ALKALINE PHOSPHATASE 96 ALBUMIN 3.6 BILIRUBIN, TOTAL 0.4 TOTAL PROTEIN 6.9 eGFR 85.6 LIPASE - Normal LIPASE 30 COMPLETE URINALYSIS WITH REFLEX TO CULTURE - Normal Color, Urine Colorless Clarity, Urine Clear pH, Urine 8.0 Leukocytes, Urine Negative Nitrite, Urine Negative Protein, Urine Negative Glucose, Urine Normal Bilirubin, Urine Negative Ketones, Urine Negative Urobilinogen, Urine Normal Blood, Urine Negative SPECIFIC GRAVITY OF URINE (NUMERIC) 1.005 Narrative: A specimen with <=10 WBC is not consistent with inflammation. This specimen will not reflex to aurine culture. C-REACTIVE PROTEIN - Normal C REACTIVE PROTEIN 3.1 RADIOLOGY : Medications ordered: Medications lactulose (Chronulac) 10 GM/15ML solution 20 g (20 g Oral Given 03/03/25 1623) acetaminophen (Tylenol) tablet 650 mg (650 mg Oral Given 03/03/25 1622) Diagnoses as of 03/03/25 1813 Lower abdominal pain Constipation, unspecified constipation type * No order type specified * Our workup consisted of ordering/reviewing: Orders Placed This Encounter Procedures CBC auto differential Comprehensive metabolic panel Lipase Urinalysis Complete with reflex to Culture C-reactive protein Insert peripheral IV MDM: 69 y.o. presented with abdominal pain. The differential diagnosis considered: Constipation, hepatitis, pancreatitis, UTI, kidney stone, infection, inflammation. Diagnostic tests considered but not performed: CT abdomen and pelvis. No SIRS criteria on vital signs. REVAL: CRITICAL CARE TIME PROCEDURES: Procedures FINAL IMPRESSION 1. Lower abdominal pain 2. Constipation, unspecified constipation type DISPOSITION/PLAN DISPOSITION Discharge 03/03/2025 06:10:01 PM PATIENT REFERRED TO: Anthony Chamorro MD [address] [place] [address], [address] [facility] [address] In 8 days I prescribed: New Prescriptions GLYCERIN, ADULT, 2 G SUPPOSITORY Insert 1 suppository (2 g) into the rectum Daily as needed (constipation). POLYETHYLENE GLYCOL, PEG, 3350 (MIRALAX) 17 GM/SCOOP POWDER Take 17 g by mouth Daily as needed (constipation). (Comment: this report has been produced using speech recognition software and may contain errors related to that system including errors in grammar, punctuation, and spelling, as well as words and phrases) Kavin Westbrook MD (electronically signed) Kavin Westbrook MD 03/03/25 1813 [facility] [id number] Telephone encounter Note* Telephone Encounter - Shellie Samano RN - 03/02/2025 9:41 AM EDT S: [facility] regarding patient had gallbladder surg he now have blister by the incision site B: Per nurse triage ticket created by PALS A: Patient disconnected prior to speaking with nurse. Upon return call to patient, he is at the office Reason for Disposition Patient already left for the hospital/clinic Protocols used: No Contact or Duplicate Contact [id number] [facility] [id number] Miscellaneous Notes* Telephone Encounter - Shellie Samano RN - 03/02/2025 9:41 AM EDT S: [facility] regarding patient had gallbladder surg he now have blister by the incision site B: Per nurse triage ticket created by LETITIA A: Patient disconnected prior to speaking with nurse. Upon return call to patient, he is at the office Reason for Disposition Patient already left for the hospital/clinic Protocols used: No Contact or Duplicate Contact [id number] documented in this [facility]08-11-2025 History of Present illness Narrative* MARY CARMEN Griffiths - 03/02/2025 9:30 AM EDT Post Operative: Surgery Date: 02/20/2024. Surgical Procedure: Laparoscopic cholecystectomy. Patient presents today for wound check. He states that he has recovered well and had appointment scheduled later this week but presented today due to small pustules on his abdomen. Patient notes that he noticed these areas a few days ago. The area is tender to the touch, even with clothing touching the area. Patient denies migration of the rash and denies other areas of concern. He notes good recovery from cholecystectomy overall and is enjoying meals again. He denies fever/chills or nausea/vomiting. Patient notes that his RUQ pain is resolving and has not used narcotic pain medication. He endorses kristyn e mild constipation without hematochezia, melena, or diarrhea. Patient has returned back to light activities and regular diet. Incision(s) healing well. No erythema, edema, or tenderness appreciated at incision sites. Inferior to superior central abdominal incision there are a few small pustules noted, largest ~0.2 cm in diameter with hair in the center of lesion, compatible with ingrown hair. No active drainage expressed. No extension of rash laterally. No erythema or flaking noted. Minimally tender on palpation. Pathology: Final Diagnosis GALLBLADDER, CHOLECYSTECTOMY: - MINIMAL CHRONIC CHOLECYSTITIS Patient to continue light activities for the next 1 week, then may gradually progress back to baseline activity as tolerated. Exam with probable dermatitis/ingrown hair secondary to shaving prior to operative intervention. No present concern for further inflammation or shingles appearance, but patient aware to call office if area worsens. Overall patient is doing well and I can see them on a p.r.n basis. No orders of the defined types were placed in this encounter. MARY CARMEN Griffiths MD documented in this [facility]08-11-2025 NotePost Operative: Surgery Date: 02/20/2024. Surgical Procedure: Laparoscopic cholecystectomy. Patient presents today for wound check. He states that he has recovered well and had appointment scheduled later this week but presented today due to small pustules on his abdomen. Patient notes that he noticed these areas a few days ago. The area is tender to the touch, even with clothing touching the area. Patient denies migration of the rash and denies other areas of concern. He notes good recovery from cholecystectomy overall and is enjoying meals again. He denies fever/chills or nausea/vomiting. Patient notes that his RUQ pain is resolving and has not used narcotic pain medication. He endorses some mild constipation without hematochezia, melena, or diarrhea. Patient has returned back to light activities and regular diet. Incision(s) healing well. No erythema, edema, or tenderness appreciated at incision sites. Inferior to superior central abdominal incision there are a few small pustules noted, largest ~0.2 cm in diameter with hair in the center of lesion, compatible with ingrown hair. No active drainage expressed. No extension of rash laterally. No erythema or flaking noted. Minimally tender on palpation. Pathology: Final Diagnosis GALLBLADDER, CHOLECYSTECTOMY: - MINIMAL CHRONIC CHOLECYSTITIS Patient to continue light activities for the next 1 week, then may gradually progress back to baseline activity as tolerated. Exam with probable dermatitis/ingrown hair secondary to shaving prior to operative intervention. No present concern for further inflammation or shingles appearance, but patient aware to call office if area worsens. Overall patient is doing well and I can see them on a p.r.n basis. No orders of the defined types were placed in this encounter. MARY CARMEN Griffiths, [facility]08-02-2025 Telephone encounter Note* Telephone Encounter - Carmelita Dale RN - 02/21/2025 12:57 PM EDT S: Patient spoke with [facility] nurse regarding constipation B: 02/19/25 Cholecystectomy A: Patient calling to ask if something else can be prescribed for pain that will not constipate him. Reports he has been taking stool softeners, last BM was 02/19/25. Denies any symptoms but wanted tostop taking the oxycodone before constipation gets any worsse R: Message to Provider Discussed Miralax and other otc options for constipation Patient understands care advice. No further needs at this time. Patient instructed to call back with new or worsening symptoms. Reason for Disposition Taking new prescription medication Protocols used: [id number] [facility] [id number] Miscellaneous Notes* Telephone Encounter - Carmelita Dale RN - 02/21/2025 12:57 PM EDT S: Patient spoke with [facility] nurse regarding constipation B: 02/19/25 Cholecystectomy A: Patient calling to ask if something else can be prescribed for pain that will not constipate him. Reports he has been taking stool softeners, last BM was 02/19/25. Denies any symptoms but wanted tostop taking the oxycodone before constipation gets any worsse R: Message to Provider Discussed Miralax and other otc options for constipation Patient understands care advice. No further needs at this time. Patient instructed to call back with new or worsening symptoms. Reason for Disposition Taking new prescription medication Protocols used: [id number] documented in this encounterSKindred Hospital [id number] NoteSpoke with patient. He described post-operative R shoulder pain due to laparoscopic procedure with gas. Patient overall feels well with minimal abdominal pain, though feels like the block did not take well. He has yet to pass much flatus or BM since surgery yesterday. Patient does note feeling better overall and tolerated a turkey sandwich, which is a large improvement for him. I also addressed the PACU discharge concerns and let him know that I will talk with staff to address problem. He is thankful for this and just wants to be sure that nobody else in the future feels rushed out. Patient educated on alarm symptoms to call office and expresses understanding. He has no questions and is thankful for call back.[facility] 02-20-2025 Telephone encounter Note* Telephone Encounter - MARY CARMEN Griffiths - 02/20/2025 3:54 PM EDT Spoke with patient. He described post-operative R shoulder pain due to laparoscopic procedure with gas. Patient overall feels well with minimal abdominal pain, though feels like the block did not take well. He has yet to pass much flatus or BM since surgery yesterday. Patient does note feeling better overall and tolerated a turkey sandwich, which is a large improvement for him. I also addressed the PACU discharge concerns and let him know that I will talk with staff to address problem. He is thankful for this and just wants to be sure that nobody else in the future feels rushed out. Patient educated on alarm symptoms to call office and expresses understanding. He has no questions and is thankful for call back. [facility] [employer] Phone: [phone] Miscellaneous Notes* Telephone Encounter - MARY CARMEN Griffiths - 02/20/2025 3:54 PM EDT Spoke with patient. He described post-operative R shoulder pain due to laparoscopic procedure with gas. Patient overall feels well with minimal abdominal pain, though feels like the block did not take well. He has yet to pass much flatus or BM since surgery yesterday. Patient does note feeling better overall and tolerated a turkey sandwich, which is a large improvement for him. I also addressed the PACU discharge concerns and let him know that I will talk with staff to address problem. He is thankful for this and just wants to be sure that nobody else in the future feels rushed out. Patient educated on alarm symptoms to call office and expresses understanding. He has no questions and is thankful for call back. * Telephone Encounter - Jazmyn Romero MA - 02/20/2025 10:36 AM EDT Patient had lap devora 02/19. Pain in upper right shoulder. Trying not to take pain medications. Inquiring about if he had nerve block, he was in severe pain and didn't feel like he had a block. Wantedto give and FYI to possibley pass onto same day surger dept. He feels he was discharged too soon, like he was being pushed out. Told if he stays any longer he would have to stay the night, does not remember leaving the hospital. Thought he should have been a little more awake. Had to have help getting out of vehicle once he arrived at home. documented in this [facility]08-01-2025 Telephone encounter Note* Telephone Encounter - Jazmyn Romero MA - 02/20/2025 10:36 AM EDT Patient had lap devora 02/19. Pain in upper right shoulder. Trying not to take pain medications. Inquiring about if he had nerve block, he was in severe pain and didn't feel like he had a block. Wantedto give and FYI to possibley pass onto same day surger dept. He feels he was discharged too soon, like he was being pushed out. Told if he stays any longer he would have to stay the night, does not remember leaving the hospital. Thought he should have been a little more awake. Had to have help getting out of vehicle once he arrived at home. [facility] [id number] Miscellaneous Notes* Perioperative Nursing Note - Nidia Landry RN - 02/19/2025 2:24 PM EDT Patient verbalized readiness to leave. Patient left with all medications, discharge paperwork, and verbalized all belongings present. Patient and family verbalized understanding of patient education.Patient left in wheelchair with family to drive. All questions answered. * Perioperative Nursing Note - Anette Lynn RN - 02/19/2025 2:15 PM EDT To phase 2 via cart report to bud tolerated cracker and clear liquids well * Op Note - Corona Cool MD - 02/19/2025 12:00 PM EDT OPERATIVE NOTE DATE OF PROCEDURE: 02/19/2025 SURGEON: CORONA COOL M.D., FACS ORDNANCE OFFICER: see chart PREOPERATIVE DIAGNOSIS: Chronic cholecystitis POSTOPERATIVE DIAGNOSIS: Same OPERATION: Laparoscopic cholecystectomy ANESTHESIA: General anesthesia ESTIMATED BLOOD LOSS: Minimal COMPLICATIONS: None SPECIMENS: Gallbladder HISTORY: The patient is a 69 y.o. year old male with history of above preop diagnosis. I explained the risk, benefits, expected outcome, and alternatives to the procedure. Patient understands and is in agreement to proceed with operation. PROCEDURE: Patient taken to the operating room and placed supine on the operating table. After adequate anesthesia and timeout protocol was completed. The surgical area was prepped and draped in standard sterile fashion. Local anesthetic was placed at each incision site prior to making each incision. 5mm infraumbilical incision made and Veress needle placed intraabdominal with proper placement confirmed by normal flush saline. Pneumoperitoneum was established with CO2 gas to pressure of 15 mm Hg and 5mm non-bladed infraumbilical port then placed. Under direct vision, a 10/12 mm non-bladed trocar/port was inserted in the epigastrium just to the right of the midline. Two 5mm non-bladed trocars /ports were placed in the right upper quadrant under direct visualization. Patient then placed in reverse trendelenburg and rotated to the left. The gallbladder was grasped at the fundus with grasper through the right lateral canula and at the neck with a grasper through the right mid canula. The neck of the gallbladder was retracted laterally. Dissection in the region of the triangle of Calot revealed the cystic duct and cystic artery.We isolated the cystic duct and cystic artery and dissected the posterior aspect of the gallbladder fromthe gallbladder fossa. There were only 2 structures noted, the cystic duct and the cystic artery. We placed 3 clips on the stay side of the cystic duct and 1 clip on the gallbladder side and the cystic duct was divided. We placed 2 clips on the stay side of the cystic artery, 1 clip on the gallbladd er side and the cystic artery was divided. Hook electrocautery was used to remove the gallbladder from the gallbladder fossa. Prior to amputating the gallbladder, we again re-evaluated our clip structures, there was no evidence of bleeding or bilious extravasation. The right upper quadrant was irrigated until clear. Epigastric fascia closed with 2-0 vicryl suture. Hemostasis was observed. The abdomen was then desulflated and cannulas removed. The wounds were irrigated and the skin incisions closed with interrupted 4-0 Vicryl subcuticular sutures. Benzoin, steri strips, and sterile dressings were applied. The sponge and needle count were correct. The patient tolerated the procedure well and was sent to PACU in stable condition. Corona Cool M.D., FACS * Perioperative Nursing Note - Yuliya Torres RN - 02/19/2025 10:36 AM EDT Patient educated on importance of coughing/ deep breathing after surgery to reduce risk of pneumonia. Patient educated on importance of early mobility to reduce the risk of blood clots. Falls prevention information reviewed with patient. Post-operative pain control and ways to prevent constipation discussed with patient. at bedside documented in this [facility]07-31-2025 Nurse Note* Perioperative Nursing Note - Nidia Landry RN - 02/19/2025 2:24 PM EDT Patient verbalized readiness to leave. Patient left with all medications, discharge paperwork, and verbalized all belongings present. Patient and family verbalized understanding of patient education.Patient left in wheelchair with family to drive. All questions answered. [facility] [id number] Nurse Note* Perioperative Nursing Note - Anette Lynn RN - 02/19/2025 2:15 PM EDT To phase 2 via cart report to bud tolerated cracker and clear liquids well [facility]abl[facility]15-[facility] NotePatient: Cortney Acosta Procedure Summary Date: 02/19/25 Room / Location: [address] Operating Room Anesthesia Start: 1201 Anesthesia Stop: Procedure: LAPAROSCOPIC CHOLECYSTECTOMY (Abdomen) Diagnosis: Chronic cholecystitis (Chronic cholecystitis [K81.1]) Surgeons: Corona Colo MD Responsible Provider: RONAN Talbert CRNA Anesthesia Type: general ASA Status: 2 Anesthesia Type: general Vitals Value Taken Time BP 124/79 02/19/25 13:45 Temp 36.2 ?C (97.2 ?F) 02/19/25 12:45 Pulse 53 02/19/25 13:45 Resp 18 02/19/25 13:45 SpO2 100 % 02/19/25 13:45 Anesthesia Post Evaluation Patient location during evaluation: PACU Patient participation: complete - patient participated Level of consciousness: awake and alert Pain management: satisfactory to patient Airway patency: patent Dental Injury: no Cardiovascular status: acceptable, blood pressure returned to baseline and hemodynamically stable Respiratory status: acceptable and spontaneous ventilation Hydration status: euvolemic Nausea/Vomiting: controlled No notable events documented. Patient can be discharged once all PACU criteria has been met.[facility]07-31-2025 NotePatient: Cortney Acosta Procedure Summary Date: 02/19/25 Room / Location: [address] Operating Room Anesthesia Start: 120 Anesthesia Stop: Procedure: LAPAROSCOPIC CHOLECYSTECTOMY (Abdomen) Diagnosis: Chronic cholecystitis (Chronic cholecystitis [K81.1]) Surgeons: Corona Cool MD Responsible Provider: RONAN Talbert CRNA Anesthesia Type: general ASA Status: 2 Anesthesia Type: general Vitals Value Taken Time BP 124/79 02/19/25 13:45 Temp 36.2 ?C (97.2 ?F) 02/19/25 12:45 Pulse 53 02/19/25 13:45 Resp 18 02/19/25 13:45 SpO2 100 % 02/19/25 13:45 Anesthesia Post Evaluation Patient participation: complete - patient participated Level of consciousness: alert and awake Pain management: satisfactory to patient Multimodal analgesia pain management approach Airway patency: patent Two or more strategies used to mitigate risk of obstructive sleep apnea Respiratory status: acceptable Cardiovascular status: acceptable Hydration status: acceptable No notable events documented. MIPS #430 PONV Patient received an inhalational anesthetic (4554F) MIPS # 424 Perioperative Temperature Management Anesthesia time was 60 minutes or longer (4255F) MIPS #477 Multimodal Pain Management Not emergent case MIPS #404 Anesthesiology Smoking Abstinence The patient is not a current smoker (e.g. cigarette, cigar, pipe, e-cigarette/vaping/marijuana) If no stop here (XX404) MIPS #463 PEDIATRIC Prevention of Post Operative Vomiting (POV)- Combination Therapy Inhalational anesthetic were not used (G9955) I completed my handoff to the receiving clinician during which we: 1. Identified the patient 2. Identified the responsible provider 3. Reviewed the pertinent medical history 4. Discussed the surgical course 5. Reviewed intra-op anesthesia management and issues during anesthesia 6. Set expectations for post-procedure period 7. Allowed opportunity for questions and acknowledgement of understanding.[facility]07-31-2025 Hospital Discharge instructions* Discharge Instructions* Corona Cool MD - 02/19/2025 12:40 PM EDT POST-OPERATIVE INSTRUCTIONS LAPAROSCOPIC SURGERY Thank you very much for allowing me to participate in your care, it is truly a privilege. Below please see discharge orders that will help you during your recovery. Please do not hesitate to call theoffice at [phone] for any questions. After hours, the same number will allow you to reach the on-call surgeon. Call the office to schedule your post-operative appointment with Dr. Cool or Nurse Practitioner for 2 weeks if not already scheduled. (May need to be seen before 2 weeks if stitches and/or drains present) Change bandages daily or more frequently if needed. Keep incisions clean with soap/ water daily. (Peroxide OK as well) Cover incision(s) as needed. Please remove the Steri-Strips as instructed 5 days after your date of surgery. This includes any clear bandages and gauze placed in the navel, if applicable. If you have skin glue this will come off on its own May place an ice pack over your incisions on and off (15min) at a time for the next 24-48 hours. Resume regular diet as tolerated (recommend starting with liquids) General guidelines for activity: Avoid strenuous activity or lifting anything heavier than 15 pounds. It is OK to be up and walking around. Going up and down stairs is also OK. Do what is comfortable: stop and rest when you feel tired. It is OK to shower after 24 hours You will have pain medicine ordered. Take as directed/needed. Some discomfort, mild bruising, and swelling are not unusual; please call my office if you have anysevere pain, hemorrhage, or high fever (over 101 F) During the laparoscopic procedure that you had, gas is pumped into the abdominal cavity. You may feel abdominal, shoulder, or rib pain for a few days due to this. Resume home medications (see medication reconciliation sheet) Do NOT drive for one day and while taking your narcotic pain medicine. Watch for signs of infection: Excessive warmth or bright redness around your incisions Leakage of bloody or cloudy fluid from you incisions Fever over 100.5 If you experience constipation Increase your water intake. Increase your activity; walking is best. An over the counter stool softener or mild laxative may be necessary if you still have not had a bowel movement after several days. Please call the office at [phone] for any questions and too make your post op appointment if needed. Thank you again for allowing me to participate in your care, and get well soon! Corona Cool MD FACS * Attachments The following attachments cannot be sent through Care Everywhere. * General Anesthesia Discharge Instructions ([place]) documented in this [facility]07-31-2025 NoteAirway Date/Time: 02/19/2025 12:09 PM Reason: scheduled Airway not difficult General Information and Staff Patient location during procedure: Procedural Resident/THERAPY TECHNICIAN: Hernando Mathews APRN - THERAPY TECHNICIAN Performed: THERAPY TECHNICIAN Patient Condition Indications for airway management: anesthesia and airway protection Patient position: sniffing MILS maintained throughout Sedation level: Asleep Final Airway Details Preoxygenated: yes Final airway type: endotracheal airway Successful airway: ETT Cuffed: yes Successful intubation technique: direct laryngoscopy Adjuncts used in placement: intubating stylet Blade: Shankar Blade size: #4 ETT size (mm): 8.0 Cormack-Lehane Classification: grade I - full view of glottis Placement verified by: chest auscultation, bronchoscopy and capnometry Measured from: lips ETT to lips (cm): 21 Ventilation between attempts: BVM Number of attempts at approach: 1 Number of other approaches attempted: [address] [place], [place] [id number] Note Peripheral Block Time Out: 02/19/2025 12:06 PM Patient location during procedure: Procedural Start time: 02/19/2025 12:06 PM End time: 02/19/2025 12:08 PM Reason for block: at surgeon's request and post-op pain management Staffing Performed: THERAPY TECHNICIAN Anesthesiologist: Fernando Monroy DO Resident/THERAPY TECHNICIAN: Ryan Maurice APRN - THERAPY TECHNICIAN Preanesthetic Checklist Completed: patient identified, IV checked, site marked, risks and benefits discussed, surgical consent, monitors and equipment checked, pre-op evaluation and timeout performed Region: Truncal Primary: TAP (Bupivacaine 0.375%/ Epi 1:200,000/ Dex 0.1mg/mL 40ml divided evenly bilateral) Secondary: Upper rectus (Bupivacaine 0.375%/ Epi 1:200,000/ Dex 0.1mg/mL 20ml divided evenly bilateral) Peripheral Block Patient position: supine Prep: ChloraPrep Patient monitoring: heart rate, cardiac cath lab radiology technologist, continuous pulse ox and continuous capnometry O2: ETT/LMA Laterality: bilateral Injection technique: single-shot Guidance: ultrasound guided -image retained in chart, tip of the needle identified by ultraound during injection. Needle Needle: 21G X 110 mm Additional Notes 02/19/2025 12:06 PM Assessment Injection assessment: negative aspiration for heme, no paresthesia on injection and incremental injection Heart rate change: no Slow fractionated injection: yes Required Documentation: Relevant anatomy identified (Nerves, Vessels, Muscles), Negative for blood on aspiration, Local anesthetic injected incrementally with intermittent aspiration every 5 mL, Normal resistance with injection, No EKG changes noted, No symptoms of toxicity, Local anesthetic spread visualized around nerves or plane. and Local anesthetic injected without difficultyMedications yozHZDJRumpsa-dsepwtbmzlc-uqzzqtiargb (TAP) syringe - Injection 60 mL - 02/19/2025 12:06:00 [facility]07-31-2025 NoteOPERATIVE NOTE DATE OF PROCEDURE: 02/19/2025 SURGEON: CORONA COOL M.D., FACS ORDNANCE OFFICER: see chart PREOPERATIVE DIAGNOSIS: Chronic cholecystitis POSTOPERATIVE DIAGNOSIS: Same OPERATION: Laparoscopic cholecystectomy ANESTHESIA: General anesthesia ESTIMATED BLOOD LOSS: Minimal COMPLICATIONS: None SPECIMENS: Gallbladder HISTORY: The patient is a 69 y.o. year old male with history of above preop diagnosis. I explained the risk, benefits, expected outcome, and alternatives to the procedure. Patient understands and is in agreement to proceed with operation. PROCEDURE: Patient taken to the operating room and placed supine on the operating table. After adequate anesthesia and timeout protocol was completed. The surgical area was prepped and draped in standard sterile fashion. Local anesthetic was placed at each incision site prior to making each incision. 5mm infraumbilical incision made and Veress needle placed intraabdominal with proper placement confirmed by normal flush saline. Pneumoperitoneum was established with CO2 gas to pressure of 15 mm Hg and 5mm non-bladed infraumbilical port then placed. Under direct vision, a 10/12 mm non-bladed trocar/port was inserted in the epigastrium just to the right of the midline. Two 5mm non-bladed trocars/ports were placed in the right upper quadrant under direct visualization. Patient then placed in reverse trendelenburg and rotated to the left. The gallbladder was grasped at the fundus with grasper through the right lateral canula and at the neck with a grasper through the right mid canula. The neck of the gallbladder was retracted laterally. Dissection in the region of the triangle of Calot revealed the cystic duct and cystic artery.We isolated the cystic duct and cystic artery and dissected the posterior aspect of the gallbladder from the gallbladder fossa. There were only 2 structures noted, the cystic duct and the cystic artery. We placed 3 clips on the stay side of the cystic duct and 1 clip on the gallbladder side and the cystic duct was divided. We placed 2 clips on the stay side of the cystic artery, 1 clip on the gallbladder side and the cystic artery was divided. Hook electrocautery was used to remove the gallbladder from the gallbladder fossa. Prior to amputating the gallbladder, we again re-evaluated our clip structures, there was no evidence of bleeding or bilious extravasation. The right upper quadrant was irrigated until clear. Epigastric fascia closed with 2-0 vicryl suture. Hemostasis was observed. The abdomen was then desulflated and cannulas removed. The wounds were irrigated and the skin incisions closed with interrupted 4-0 Vicryl subcuticular sutures. Benzoin, steri strips, and sterile dressings were applied. The sponge and needle count were correct. The patient tolerated the procedure well and was sent to PACU in stable condition. Corona Cool M.D., [facility] [id number] Procedure note* Op Note - Corona Cool MD - 02/19/2025 12:00 PM EDT OPERATIVE NOTE DATE OF PROCEDURE: 02/19/2025 SURGEON: CORNOA COOL M.D., [facility] ORDNANCE OFFICER: see chart PREOPERATIVE DIAGNOSIS: Chronic cholecystitis POSTOPERATIVE DIAGNOSIS: Same OPERATION: Laparoscopic cholecystectomy ANESTHESIA: General anesthesia ESTIMATED BLOOD LOSS: Minimal COMPLICATIONS: None SPECIMENS: Gallbladder HISTORY: The patient is a 69 y.o. year old male with history of above preop diagnosis. I explained the risk, benefits, expected outcome, and alternatives to the procedure. Patient understands and is in agreement to proceed with operation. PROCEDURE: Patient taken to the operating room and placed supine on the operating table. After adequate anesthesia and timeout protocol was completed. The surgical area was prepped and draped in standard sterile fashion. Local anesthetic was placed at each incision site prior to making each incision. 5mm infraumbilical incision made and Veress needle placed intraabdominal with proper placement confirmed by normal flush saline. Pneumoperitoneum was established with CO2 gas to pressure of 15 mm Hg and 5mm non-bladed infraumbilical port then placed. Under direct vision, a 10/12 mm non-bladed trocar/port was inserted in the epigastrium just to the right of the midline. Two 5mm non-bladed trocars /ports were placed in the right upper quadrant under direct visualization. Patient then placed in reverse trendelenburg and rotated to the left. The gallbladder was grasped at the fundus with grasper through the right lateral canula and at the neck with a grasper through the right mid canula. The neck of the gallbladder was retracted laterally. Dissection in the region of the triangle of Calot revealed the cystic duct and cystic artery.We isolated the cystic duct and cystic artery and dissected the posterior aspect of the gallbladder fromthe gallbladder fossa. There were only 2 structures noted, the cystic duct and the cystic artery. We placed 3 clips on the stay side of the cystic duct and 1 clip on the gallbladder side and the cystic duct was divided. We placed 2 clips on the stay side of the cystic artery, 1 clip on the gallbladd er side and the cystic artery was divided. Hook electrocautery was used to remove the gallbladder from the gallbladder fossa. Prior to amputating the gallbladder, we again re-evaluated our clip structures, there was no evidence of bleeding or bilious extravasation. The right upper quadrant was irrigated until clear. Epigastric fascia closed with 2-0 vicryl suture. Hemostasis was observed. The abdomen was then desulflated and cannulas removed. The wounds were irrigated and the skin incisions closed with interrupted 4-0 Vicryl subcuticular sutures. Benzoin, steri strips, and sterile dressings were applied. The sponge and needle count were correct. The patient tolerated the procedure well and was sent to PACU in stable condition. Corona Cool M.D., FACS [facility] [id number] Nurse Note* Perioperative Nursing Note - Yuliya Torres RN - 02/19/2025 10:36 AM EDT Patient educated on importance of coughing/ deep breathing after surgery to reduce risk of pneumonia. Patient educated on importance of early mobility to reduce the risk of blood clots. Falls prevention information reviewed with patient. Post-operative pain control and ways to prevent constipation discussed with patient. at bedside [facility] [id number] Attending History and physical note* Corona Cool MD - 02/19/2025 10:35 AM EDT H&P reviewed. The patient was examined and there are no changes to the H&P. Source Note - RONAN Corbett CNP - 02/18/2025 11:30 AM EDT General Surgery History and Physical Patient ID: Cortney Acosta [id number] 69 y.o. 1955 HPI: This is a 69 y/o M who presents to office with complaints of RUQ abdominal pain with radiationinto back. Ongoing for several years. He reports intermittent seems to be related to fatty foods. No prior abdominal surgeries. Nausea no emesis. No fever/chills. No bowel changes. HIDA recently performed through [facility] with noted delayed activity to the gallbladder at 2 hours. Recent labs reviewed without abnormality. Had extensive spine workup with noted degenerative changes. Thoroughly reviewed the patient's medical history, family history, social history and review of systems with the patient today in the office. Please see medical record for pertinent positives. Impression /Treatment: - Chronic cholecystitis - Will schedule patient for laparoscopic cholecystectomy Patient counseled on risks, benefits, and alternatives of treatment plan at length while in the office today. Patient states an understanding and willingness to proceed with plan. Medical History[1] Surgical History[2] Current Medications[3] Allergies[4] Review of Systems: Review of Systems Constitutional: Negative for appetite change, chills, fatigue, fever and unexpected weight change. HENT: Negative for hearing loss, nosebleeds, trouble swallowing and voice change. Respiratory: Negative for cough, shortness of breath and wheezing. Cardiovascular: Negative for chest pain and palpitations. Gastrointestinal: Positive for abdominal pain and nausea. Negative for constipation, diarrhea, rectal pain and vomiting. Endocrine: Negative for polyuria. Genitourinary: Negative for difficulty urinating, frequency, hematuria and urgency. Skin: Negative for rash and wound. Allergic/Immunologic: Negative for immunocompromised state. Neurological: Negative for seizures and syncope. Hematological: Negative for adenopathy. Does not bruise/bleed easily. Psychiatric/Behavioral: Negative for agitation and confusion. Physical Exam: BP 132/88 Pulse 71 Temp 36.5 C (97.7 F) Ht 5' 5" (1.651 m) Wt 138 lb 9.6 oz (62.9 kg) BMI23.06 kg/m Physical Exam Constitutional: Appearance: Normal appearance. HENT: Head: Normocephalic. Eyes: Pupils: Pupils are equal, round, and reactive to light. Cardiovascular: Rate and Rhythm: Normal rate and regular rhythm. Pulmonary: Effort: No respiratory distress. Breath sounds: Normal breath sounds. No rales. Abdominal: General: There is no distension. Palpations: There is no mass. Tenderness: There is no abdominal tenderness. There is no guarding or rebound. Musculoskeletal: General: No tenderness or deformity. Cervical back: Neck supple. Lymphadenopathy: Cervical: No cervical adenopathy. Skin: General: Skin is warm and dry. Neurological: Mental Status: He is alert and oriented to person, place, and time. Cranial Nerves: No cranial nerve deficit. Coordination: Coordination normal. Psychiatric: Behavior: Behavior normal. No orders of the defined types were placed in this encounter. LABS: CBC: Lab Results Component Value Date WBC 5.9 01/04/2025 WBC 6.6 09/17/2023 HGB 14.0 01/04/2025 HGB 15.5 09/17/2023 HCT 41.3 01/04/2025 HCT 46.4 09/17/2023 MCV 89.0 01/04/2025 MCV 89.6 09/17/2023 PLT 286 01/04/2025 CMP: Lab Results Component Value Date NA 139 01/04/2025 K 4.8 01/04/2025 CL 104 01/04/2025 CO2 26 01/04/2025 CO2 30 09/17/2023 BUN 18 01/04/2025 BUN 19 09/17/2023 CREATININE 0.95 01/04/2025 CREATININE 0.77 09/17/2023 AGRATIO 1.5 09/17/2023 GLUCOSE 103 01/04/2025 GLUCOSE 83 09/17/2023 PROT 6.7 01/04/2025 PROT 7.2 09/17/2023 CALCIUM 9.3 01/04/2025 CALCIUM 9.7 09/17/2023 BILITOT 0.5 01/04/2025 BILITOT 0.7 09/17/2023 ALKPHOS 59 01/04/2025 ALKPHOS 54 09/17/2023 AST 17 01/04/2025 AST 13 10/17/2023 ALT 14 01/04/2025 ALT 13 10/17/2023 Lipase: Lab Results Component Value Date LIPASE 24 08/21/2024 Coags: Lab Results Component Value Date INR 1.0 02/14/2022 Follow Up: No follow-ups on file. Corona Cool MD RB 02/18/2025 [1] Past Medical History: Diagnosis Date Acute midline low back pain without sciatica 04/07/2024 Arthritis Chronic back pain Chronic pain Degenerative joint disease of right hip Hypertension Muscle spasm 02/13/2024 Rib pain on right side 08/15/2024 Upper back pain 02/13/2024 Viral URI with cough 08/15/2024 Weakness of both lower extremities 04/07/2024 [2] Past Surgical History: Procedure Laterality Date BACK SURGERY 05/26/2024 CARPAL TUNNEL RELEASE Right 20 years ago COLONOSCOPY COLONOSCOPY TOTAL HIP ARTHROPLASTY Right 02/28/2022 RIGHT TOTAL HIP ARTHROPLASTY WITH DIRECT ANDTERIOR APPROACH [3] Current Outpatient Medications Medication Sig Dispense Refill acetaminophen (Tylenol) 500 MG tablet Take 1,000 mg by mouth every 8 hours as needed for mild pain (1-3). busPIRone (Buspar) 7.5 MG tablet Take 1 tablet (7.5 mg) by mouth 2 times daily. 180 tablet 1 losartan (Cozaar) 100 MG tablet Take 0.5 tablets (50 mg) by mouth Nightly. meloxicam (Mobic) 15 MG tablet TAKE 1 TABLET BY MOUTH EVERY MORNING WITH FOOD TO REDUCE SWELLING. DO NOT TAKE WITH OTHER NSAIDS (IBUPROFEN, ADVIL, MOTRIN, ALEVE,OR NAPROXEN) 30 tablet 3 rosuvastatin (Crestor) 5 MG tablet Take 1 tablet (5 mg) by mouth daily. (Patient not taking: Reported on 01/27/2025) 90 tablet 1 No current facility-administered medications for this visit. [4] Allergies Allergen Reactions [id number] NoteH&P reviewed. The patient was examined and there are no changes to the H&P.[facility]07-31-2025 History and physical note* Corona Cool MD - 02/19/2025 10:35 AM EDT H&P reviewed. The patient was examined and there are no changes to the H&P. Source Note - RONAN Corbett CNP - 02/18/2025 11:30 AM EDT General Surgery History and Physical Patient ID: Cortney Acosta [id number] 69 y.o. 1955 HPI: This is a 69 y/o M who presents to office with complaints of RUQ abdominal pain with radiationinto back. Ongoing for several years. He reports intermittent seems to be related to fatty foods. No prior abdominal surgeries. Nausea no emesis. No fever/chills. No bowel changes. HIDA recently performed through [facility] with noted delayed activity to the gallbladder at 2 hours. Recent labs reviewed without abnormality. Had extensive spine workup with noted degenerative changes. Thoroughly reviewed the patient's medical history, family history, social history and review of systems with the patient today in the office. Please see medical record for pertinent positives. Impression /Treatment: - Chronic cholecystitis - Will schedule patient for laparoscopic cholecystectomy Patient counseled on risks, benefits, and alternatives of treatment plan at length while in the office today. Patient states an understanding and willingness to proceed with plan. Medical History[1] Surgical History[2] Current Medications[3] Allergies[4] Review of Systems: Review of Systems Constitutional: Negative for appetite change, chills, fatigue, fever and unexpected weight change. HENT: Negative for hearing loss, nosebleeds, trouble swallowing and voice change. Respiratory: Negative for cough, shortness of breath and wheezing. Cardiovascular: Negative for chest pain and palpitations. Gastrointestinal: Positive for abdominal pain and nausea. Negative for constipation, diarrhea, rectal pain and vomiting. Endocrine: Negative for polyuria. Genitourinary: Negative for difficulty urinating, frequency, hematuria and urgency. Skin: Negative for rash and wound. Allergic/Immunologic: Negative for immunocompromised state. Neurological: Negative for seizures and syncope. Hematological: Negative for adenopathy. Does not bruise/bleed easily. Psychiatric/Behavioral: Negative for agitation and confusion. Physical Exam: BP 132/88 Pulse 71 Temp 36.5 C (97.7 F) Ht 5' 5" (1.651 m) Wt 138 lb 9.6 oz (62.9 kg) BMI23.06 kg/m Physical Exam Constitutional: Appearance: Normal appearance. HENT: Head: Normocephalic. Eyes: Pupils: Pupils are equal, round, and reactive to light. Cardiovascular: Rate and Rhythm: Normal rate and regular rhythm. Pulmonary: Effort: No respiratory distress. Breath sounds: Normal breath sounds. No rales. Abdominal: General: There is no distension. Palpations: There is no mass. Tenderness: There is no abdominal tenderness. There is no guarding or rebound. Musculoskeletal: General: No tenderness or deformity. Cervical back: Neck supple. Lymphadenopathy: Cervical: No cervical adenopathy. Skin: General: Skin is warm and dry. Neurological: Mental Status: He is alert and oriented to person, place, and time. Cranial Nerves: No cranial nerve deficit. Coordination: Coordination normal. Psychiatric: Behavior: Behavior normal. No orders of the defined types were placed in this encounter. LABS: CBC: Lab Results Component Value Date WBC 5.9 01/04/2025 WBC 6.6 09/17/2023 HGB 14.0 01/04/2025 HGB 15.5 09/17/2023 HCT 41.3 01/04/2025 HCT 46.4 09/17/2023 MCV 89.0 01/04/2025 MCV 89.6 09/17/2023 PLT 286 01/04/2025 CMP: Lab Results Component Value Date NA 139 01/04/2025 K 4.8 01/04/2025 CL 104 01/04/2025 CO2 26 01/04/2025 CO2 30 09/17/2023 BUN 18 01/04/2025 BUN 19 09/17/2023 CREATININE 0.95 01/04/2025 CREATININE 0.77 09/17/2023 AGRATIO 1.5 09/17/2023 GLUCOSE 103 01/04/2025 GLUCOSE 83 09/17/2023 PROT 6.7 01/04/2025 PROT 7.2 09/17/2023 CALCIUM 9.3 01/04/2025 CALCIUM 9.7 09/17/2023 BILITOT 0.5 01/04/2025 BILITOT 0.7 09/17/2023 ALKPHOS 59 01/04/2025 ALKPHOS 54 09/17/2023 AST 17 01/04/2025 AST 13 10/17/2023 ALT 14 01/04/2025 ALT 13 10/17/2023 Lipase: Lab Results Component Value Date LIPASE 24 08/21/2024 Coags: Lab Results Component Value Date INR 1.0 02/14/2022 Follow Up: No follow-ups on file. Corona Cool MD RB 02/18/2025 [1] Past Medical History: Diagnosis Date Acute midline low back pain without sciatica 04/07/2024 Arthritis Chronic back pain Chronic pain Degenerative joint disease of right hip Hypertension Muscle spasm 02/13/2024 Rib pain on right side 08/15/2024 Upper back pain 02/13/2024 Viral URI with cough 08/15/2024 Weakness of both lower extremities 04/07/2024 [2] Past Surgical History: Procedure Laterality Date BACK SURGERY 05/26/2024 CARPAL TUNNEL RELEASE Right 20 years ago COLONOSCOPY COLONOSCOPY TOTAL HIP ARTHROPLASTY Right 02/28/2022 RIGHT TOTAL HIP ARTHROPLASTY WITH DIRECT ANDTERIOR APPROACH [3] Current Outpatient Medications Medication Sig Dispense Refill acetaminophen (Tylenol) 500 MG tablet Take 1,000 mg by mouth every 8 hours as needed for mild pain (1-3). busPIRone (Buspar) 7.5 MG tablet Take 1 tablet (7.5 mg) by mouth 2 times daily. 180 tablet 1 losartan (Cozaar) 100 MG tablet Take 0.5 tablets (50 mg) by mouth Nightly. meloxicam (Mobic) 15 MG tablet TAKE 1 TABLET BY MOUTH EVERY MORNING WITH FOOD TO REDUCE SWELLING. DO NOT TAKE WITH OTHER NSAIDS (IBUPROFEN, ADVIL, MOTRIN, ALEVE,OR NAPROXEN) 30 tablet 3 rosuvastatin (Crestor) 5 MG tablet Take 1 tablet (5 mg) by mouth daily. (Patient not taking: Reported on 01/27/2025) 90 tablet 1 No current facility-administered medications for this visit. [4] Allergies Allergen Reactions Penicillins documented in this [facility]07-31-2025 NotePatient: Cortney Acosta Procedure Information Date/Time: 02/19/25 1200 Procedure: LAPAROSCOPIC CHOLECYSTECTOMY (Abdomen) - Please schedule for 90 mins Location: [address] Operating Room Surgeons: Corona Cool MD Relevant Problems Cardio (+) Hypercholesterolemia (+) Primary hypertension /Renal (+) Renal cyst Neuro/Psych (+) Anxiety Other (+) Degenerative arthritis Past Medical History: Past Medical History: 04/07/2024: Acute midline low back pain without sciatica No date: Arthritis No date: Chronic back pain No date: Chronic pain No date: Degenerative joint disease of right hip No date: Hypertension 02/13/2024: Muscle spasm 08/15/2024: Rib pain on right side 02/13/2024: Upper back pain 08/15/2024: Viral URI with cough 04/07/2024: Weakness of both lower extremities Past Surgical History: Past Surgical History: 05/26/2024: BACK SURGERY 20 years ago: CARPAL TUNNEL RELEASE; Right No date: COLONOSCOPY No date: COLONOSCOPY 02/28/2022: TOTAL HIP ARTHROPLASTY; Right Comment: RIGHT TOTAL HIP ARTHROPLASTY WITH DIRECT ANDTERIOR APPROACH Social History: TOBACCO: reports that he has never smoked. He quit smokeless tobacco use about 13 months ago. ETOH: reports that he does not currently use alcohol after a past usage of about 2.0 standard drinks of alcohol per week. Social History Substance and Sexual Activity Drug Use No Family History: Family History[1] Screening: unknown Clinical information reviewed: Tobacco Allergies Meds Med Hx Surg Hx Fam Hx Soc Hx Physical Exam Airway Mallampati: II TM distance: >3 FB Neck ROM: full Mouth Open: normal Cardiovascular Dental dentition normal Pulmonary Abdominal Anesthesia Plan Any family history or previous problems with anesthesia no We discussed risks, benefits, alternatives and likelihood of success with the Patient. ASA 2 general Any family history or previous problems with anesthesia no The patient is not a current smoker. patient is NPO appropriate JOSE DAVID Screening Labs: Lab Results Component Value Date WBC 5.9 01/04/2025 HGB 14.0 01/04/2025 HCT 41.3 01/04/2025 MCV 89.0 01/04/2025 PLT 286 01/04/2025 Lab Results Component Value Date SODIUM 138 09/17/2023 NA 139 01/04/2025 POTASSIUM 5.2 09/17/2023 K 4.8 01/04/2025 CHLORIDE 98 09/17/2023 CL 104 01/04/2025 CO2 26 01/04/2025 BUN 18 01/04/2025 CREATININE 0.95 01/04/2025 GLUCOSE 103 01/04/2025 CALCIUM 9.3 01/04/2025 PROT 6.7 01/04/2025 ALKPHOS 59 01/04/2025 AST 17 01/04/2025 ALT 14 01/04/2025 EGFR 87.7 01/04/2025 GLOB 2.9 09/17/2023 No echocardiogram results found for the past 14 days 01/04/25 ECG 12-LEAD 01/05/2025 1:29 AM (Final) Impression Sinus rhythm Borderline low voltage, extremity leads Compared to ECG 11/30/24 No significant change Electronically Signed On 01-05-2025 01:29:03 EDT by Pan Hammer Signed by: Pan Hammer DO on 01/05/2025 1:29 AM Equipment Requests: Additional Equipment Requests Block Team [1] Family History Problem Relation Name Age of Onset Emphysema Mother Cancer [facility]07-30-2025 History of Present illness Narrative* Rosanne Davis, HOME MANAGER - [employer] BED INSTALLER - 02/18/2025 11:30 AM EDT General Surgery History and Physical Patient ID: Cortney Acosta [id number] 69 y.o. 1955 HPI: This is a 69 y/o M who presents to office with complaints of RUQ abdominal pain with radiationinto back. Ongoing for several years. He reports intermittent seems to be related to fatty foods. No prior abdominal surgeries. Nausea no emesis. No fever/chills. No bowel changes. HIDA recently performed through [facility] with noted delayed activity to the gallbladder at 2 hours. Recent labs reviewed without abnormality. Had extensive spine workup with noted degenerative changes. Thoroughly reviewed the patient's medical history, family history, social history and review of systems with the patient today in the office. Please see medical record for pertinent positives. Impression /Treatment: - Chronic cholecystitis - Will schedule patient for laparoscopic cholecystectomy Patient counseled on risks, benefits, and alternatives of treatment plan at length while in the office today. Patient states an understanding and willingness to proceed with plan. Medical History[1] Surgical History[2] Current Medications[3] Allergies[4] Review of Systems: Review of Systems Constitutional: Negative for appetite change, chills, fatigue, fever and unexpected weight change. HENT: Negative for hearing loss, nosebleeds, trouble swallowing and voice change. Respiratory: Negative for cough, shortness of breath and wheezing. Cardiovascular: Negative for chest pain and palpitations. Gastrointestinal: Positive for abdominal pain and nausea. Negative for constipation, diarrhea, rectal pain and vomiting. Endocrine: Negative for polyuria. Genitourinary: Negative for difficulty urinating, frequency, hematuria and urgency. Skin: Negative for rash and wound. Allergic/Immunologic: Negative for immunocompromised state. Neurological: Negative for seizures and syncope. Hematological: Negative for adenopathy. Does not bruise/bleed easily. Psychiatric/Behavioral: Negative for agitation and confusion. Physical Exam: BP 132/88 Pulse 71 Temp 36.5 C (97.7 F) Ht 5' 5" (1.651 m) Wt 138 lb 9.6 oz (62.9 kg) BMI23.06 kg/m Physical Exam Constitutional: Appearance: Normal appearance. HENT: Head: Normocephalic. Eyes: Pupils: Pupils are equal, round, and reactive to light. Cardiovascular: Rate and Rhythm: Normal rate and regular rhythm. Pulmonary: Effort: No respiratory distress. Breath sounds: Normal breath sounds. No rales. Abdominal: General: There is no distension. Palpations: There is no mass. Tenderness: There is no abdominal tenderness. There is no guarding or rebound. Musculoskeletal: General: No tenderness or deformity. Cervical back: Neck supple. Lymphadenopathy: Cervical: No cervical adenopathy. Skin: General: Skin is warm and dry. Neurological: Mental Status: He is alert and oriented to person, place, and time. Cranial Nerves: No cranial nerve deficit. Coordination: Coordination normal. Psychiatric: Behavior: Behavior normal. No orders of the defined types were placed in this encounter. LABS: CBC: Lab Results Component Value Date WBC 5.9 01/04/2025 WBC 6.6 09/17/2023 HGB 14.0 01/04/2025 HGB 15.5 09/17/2023 HCT 41.3 01/04/2025 HCT 46.4 09/17/2023 MCV 89.0 01/04/2025 MCV 89.6 09/17/2023 PLT 286 01/04/2025 CMP: Lab Results Component Value Date NA 139 01/04/2025 K 4.8 01/04/2025 CL 104 01/04/2025 CO2 26 01/04/2025 CO2 30 09/17/2023 BUN 18 01/04/2025 BUN 19 09/17/2023 CREATININE 0.95 01/04/2025 CREATININE 0.77 09/17/2023 AGRATIO 1.5 09/17/2023 GLUCOSE 103 01/04/2025 GLUCOSE 83 09/17/2023 PROT 6.7 01/04/2025 PROT 7.2 09/17/2023 CALCIUM 9.3 01/04/2025 CALCIUM 9.7 09/17/2023 BILITOT 0.5 01/04/2025 BILITOT 0.7 09/17/2023 ALKPHOS 59 01/04/2025 ALKPHOS 54 09/17/2023 AST 17 01/04/2025 AST 13 10/17/2023 ALT 14 01/04/2025 ALT 13 10/17/2023 Lipase: Lab Results Component Value Date LIPASE 24 08/21/2024 Coags: Lab Results Component Value Date INR 1.0 02/14/2022 Follow Up: No follow-ups on file. Corona Cool MD RB 02/18/2025 [1] Past Medical History: Diagnosis Date Acute midline low back pain without sciatica 04/07/2024 Arthritis Chronic back pain Chronic pain Degenerative joint disease of right hip Hypertension Muscle spasm 02/13/2024 Rib pain on right side 08/15/2024 Upper back pain 02/13/2024 Viral URI with cough 08/15/2024 Weakness of both lower extremities 04/07/2024 [2] Past Surgical History: Procedure Laterality Date BACK SURGERY 05/26/2024 CARPAL TUNNEL RELEASE Right 20 years ago COLONOSCOPY COLONOSCOPY TOTAL HIP ARTHROPLASTY Right 02/28/2022 RIGHT TOTAL HIP ARTHROPLASTY WITH DIRECT ANDTERIOR APPROACH [3] Current Outpatient Medications Medication Sig Dispense Refill acetaminophen (Tylenol) 500 MG tablet Take 1,000 mg by mouth every 8 hours as needed for mild pain (1-3). busPIRone (Buspar) 7.5 MG tablet Take 1 tablet (7.5 mg) by mouth 2 times daily. 180 tablet 1 losartan (Cozaar) 100 MG tablet Take 0.5 tablets (50 mg) by mouth Nightly. meloxicam (Mobic) 15 MG tablet TAKE 1 TABLET BY MOUTH EVERY MORNING WITH FOOD TO REDUCE SWELLING. DO NOT TAKE WITH OTHER NSAIDS (IBUPROFEN, ADVIL, MOTRIN, ALEVE,OR NAPROXEN) 30 tablet 3 rosuvastatin (Crestor) 5 MG tablet Take 1 tablet (5 mg) by mouth daily. (Patient not taking: Reported on 01/27/2025) 90 tablet 1 No current facility-administered medications for this visit. [4] Allergies Allergen Reactions Penicillins documented in this [facility]07-30-2025 NoteGeneral Surgery History and Physical Patient ID: Cortney Acosta [id number] 69 y.o. 1955 HPI: This is a 69 y/o M who presents to office with complaints of RUQ abdominal pain with radiation into back. Ongoing for several years. He reports intermittent seems to be related to fatty foods. No prior abdominal surgeries. Nausea no emesis. No fever/chills. No bowel changes. HIDA recently performed through [facility] with noted delayed activity to the gallbladder at 2 hours. Recent labs reviewed without abnormality. Had extensive spine workup with noted degenerative changes. Thoroughly reviewed the patient's medical history, family history, social history and review of systems with the patient today in the office. Please see medical record for pertinent positives. Impression /Treatment: - Chronic cholecystitis - Will schedule patient for laparoscopic cholecystectomy Patient counseled on risks, benefits, and alternatives of treatment plan at length while in the office today. Patient states an understanding and willingness to proceed with plan. Medical History[1] Surgical History[2] Current Medications[3] Allergies[4] Review of Systems: Review of Systems Constitutional: Negative for appetite change, chills, fatigue, fever and unexpected weight change. HENT: Negative for hearing loss, nosebleeds, trouble swallowing and voice change. Respiratory: Negative for cough, shortness of breath and wheezing. Cardiovascular: Negative for chest pain and palpitations. Gastrointestinal: Positive for abdominal pain and nausea. Negative for constipation, diarrhea, rectal pain and vomiting. Endocrine: Negative for polyuria. Genitourinary: Negative for difficulty urinating, frequency, hematuria and urgency. Skin: Negative for rash and wound. Allergic/Immunologic: Negative for immunocompromised state. Neurological: Negative for seizures and syncope. Hematological: Negative for adenopathy. Does not bruise/bleed easily. Psychiatric/Behavioral: Negative for agitation and confusion. Physical Exam: BP 132/88 Pulse 71 Temp 36.5 ?C (97.7 ?F) Ht 5' 5" (1.651 m) Wt 138 lb 9.6 oz (62.9 kg) BMI 23.06 kg/m? Physical Exam Constitutional: Appearance: Normal appearance. HENT: Head: Normocephalic. Eyes: Pupils: Pupils are equal, round, and reactive to light. Cardiovascular: Rate and Rhythm: Normal rate and regular rhythm. Pulmonary: Effort: No respiratory distress. Breath sounds: Normal breath sounds. No rales. Abdominal: General: There is no distension. Palpations: There is no mass. Tenderness: There is no abdominal tenderness. There is no guarding or rebound. Musculoskeletal: General: No tenderness or deformity. Cervical back: Neck supple. Lymphadenopathy: Cervical: No cervical adenopathy. Skin: General: Skin is warm and dry. Neurological: Mental Status: He is alert and oriented to person, place, and time. Cranial Nerves: No cranial nerve deficit. Coordination: Coordination normal. Psychiatric: Behavior: Behavior normal. No orders of the defined types were placed in this encounter. LABS: CBC: Lab Results Component Value Date WBC 5.9 01/04/2025 WBC 6.6 09/17/2023 HGB 14.0 01/04/2025 HGB 15.5 09/17/2023 HCT 41.3 01/04/2025 HCT 46.4 09/17/2023 MCV 89.0 01/04/2025 MCV 89.6 09/17/2023 PLT 286 01/04/2025 CMP: Lab Results Component Value Date NA 139 01/04/2025 K 4.8 01/04/2025 CL 104 01/04/2025 CO2 26 01/04/2025 CO2 30 09/17/2023 BUN 18 01/04/2025 BUN 19 09/17/2023 CREATININE 0.95 01/04/2025 CREATININE 0.77 09/17/2023 AGRATIO 1.5 09/17/2023 GLUCOSE 103 01/04/2025 GLUCOSE 83 09/17/2023 PROT 6.7 01/04/2025 PROT 7.2 09/17/2023 CALCIUM 9.3 01/04/2025 CALCIUM 9.7 09/17/2023 BILITOT 0.5 01/04/2025 BILITOT 0.7 09/17/2023 ALKPHOS 59 01/04/2025 ALKPHOS 54 09/17/2023 AST 17 01/04/2025 AST 13 10/17/2023 ALT 14 01/04/2025 ALT 13 10/17/2023 Lipase: Lab Results Component Value Date LIPASE 24 08/21/2024 Coags: Lab Results Component Value Date INR 1.0 02/14/2022 Follow Up: No follow-ups on file. Corona Cool MD RB 02/18/2025 [1] Past Medical History: Diagnosis Date Acute midline low back pain without sciatica 04/07/2024 Arthritis Chronic back pain Chronic pain Degenerative joint disease of right hip Hypertension Muscle spasm 02/13/2024 Rib pain on right side 08/15/2024 Upper back pain 02/13/2024 Viral URI with cough 08/15/2024 Weakness of both lower extremities 04/07/2024 [2] Past Surgical History: Procedure Laterality Date BACK SURGERY 05/26/2024 CARPAL TUNNEL RELEASE Right 20 years ago COLONOSCOPY COLONOSCOPY TOTAL HIP ARTHROPLASTY Right 02/28/2022 RIGHT TOTAL HIP ARTHROPLASTY WITH DIRECT ANDTERIOR APPROACH [3] Current Outpatient Medications Medication Sig Dispense Refill acetaminophen (Tylenol) 500 MG tablet Take 1,000 mg by mouth every 8 hour (more content not included)...[facility]07-30-2025 NoteGeneral Surgery History and Physical Patient ID: Cortney Acosta [id number] 69 y.o. 1955 HPI: This is a 69 y/o M who presents to office with complaints of RUQ abdominal pain with radiation into back. Ongoing for several years. He reports intermittent seems to be related to fatty foods. No prior abdominal surgeries. Nausea no emesis. No fever/chills. No bowel changes. HIDA recently performed through [facility] with noted delayed activity to the gallbladder at 2 hours. Recent labs reviewed without abnormality. Had extensive spine workup with noted degenerative changes. Thoroughly reviewed the patient's medical history, family history, social history and review of systems with the patient today in the office. Please see medical record for pertinent positives. Impression /Treatment: - Chronic cholecystitis - Will schedule patient for laparoscopic cholecystectomy Patient counseled on risks, benefits, and alternatives of treatment plan at length while in the office today. Patient states an understanding and willingness to proceed with plan. Medical History[1] Surgical History[2] Current Medications[3] Allergies[4] Review of Systems: Review of Systems Constitutional: Negative for appetite change, chills, fatigue, fever and unexpected weight change. HENT: Negative for hearing loss, nosebleeds, trouble swallowing and voice change. Respiratory: Negative for cough, shortness of breath and wheezing. Cardiovascular: Negative for chest pain and palpitations. Gastrointestinal: Positive for abdominal pain and nausea. Negative for constipation, diarrhea, rectal pain and vomiting. Endocrine: Negative for polyuria. Genitourinary: Negative for difficulty urinating, frequency, hematuria and urgency. Skin: Negative for rash and wound. Allergic/Immunologic: Negative for immunocompromised state. Neurological: Negative for seizures and syncope. Hematological: Negative for adenopathy. Does not bruise/bleed easily. Psychiatric/Behavioral: Negative for agitation and confusion. Physical Exam: BP 132/88 Pulse 71 Temp 36.5 ?C (97.7 ?F) Ht 5' 5" (1.651 m) Wt 138 lb 9.6 oz (62.9 kg) BMI 23.06 kg/m? Physical Exam Constitutional: Appearance: Normal appearance. HENT: Head: Normocephalic. Eyes: Pupils: Pupils are equal, round, and reactive to light. Cardiovascular: Rate and Rhythm: Normal rate and regular rhythm. Pulmonary: Effort: No respiratory distress. Breath sounds: Normal breath sounds. No rales. Abdominal: General: There is no distension. Palpations: There is no mass. Tenderness: There is no abdominal tenderness. There is no guarding or rebound. Musculoskeletal: General: No tenderness or deformity. Cervical back: Neck supple. Lymphadenopathy: Cervical: No cervical adenopathy. Skin: General: Skin is warm and dry. Neurological: Mental Status: He is alert and oriented to person, place, and time. Cranial Nerves: No cranial nerve deficit. Coordination: Coordination normal. Psychiatric: Behavior: Behavior normal. No orders of the defined types were placed in this encounter. LABS: CBC: Lab Results Component Value Date WBC 5.9 01/04/2025 WBC 6.6 09/17/2023 HGB 14.0 01/04/2025 HGB 15.5 09/17/2023 HCT 41.3 01/04/2025 HCT 46.4 09/17/2023 MCV 89.0 01/04/2025 MCV 89.6 09/17/2023 PLT 286 01/04/2025 CMP: Lab Results Component Value Date NA 139 01/04/2025 K 4.8 01/04/2025 CL 104 01/04/2025 CO2 26 01/04/2025 CO2 30 09/17/2023 BUN 18 01/04/2025 BUN 19 09/17/2023 CREATININE 0.95 01/04/2025 CREATININE 0.77 09/17/2023 AGRATIO 1.5 09/17/2023 GLUCOSE 103 01/04/2025 GLUCOSE 83 09/17/2023 PROT 6.7 01/04/2025 PROT 7.2 09/17/2023 CALCIUM 9.3 01/04/2025 CALCIUM 9.7 09/17/2023 BILITOT 0.5 01/04/2025 BILITOT 0.7 09/17/2023 ALKPHOS 59 01/04/2025 ALKPHOS 54 09/17/2023 AST 17 01/04/2025 AST 13 10/17/2023 ALT 14 01/04/2025 ALT 13 10/17/2023 Lipase: Lab Results Component Value Date LIPASE 24 08/21/2024 Coags: Lab Results Component Value Date INR 1.0 02/14/2022 Follow Up: No follow-ups on file. Corona Cool MD RB 02/18/2025 [1] Past Medical History: Diagnosis Date Acute midline low back pain without sciatica 04/07/2024 Arthritis Chronic back pain Chronic pain Degenerative joint disease of right hip Hypertension Muscle spasm 02/13/2024 Rib pain on right side 08/15/2024 Upper back pain 02/13/2024 Viral URI with cough 08/15/2024 Weakness of both lower extremities 04/07/2024 [2] Past Surgical History: Procedure Laterality Date BACK SURGERY 05/26/2024 CARPAL TUNNEL RELEASE Right 20 years ago COLONOSCOPY COLONOSCOPY TOTAL HIP ARTHROPLASTY Right 02/28/2022 RIGHT TOTAL HIP ARTHROPLASTY WITH DIRECT ANDTERIOR APPROACH [3] Current Outpatient Medications Medication Sig Dispense Refill acetaminophen (Tylenol) 500 MG tablet Take 1,000 mg by mouth every 8 hour (more content not included)...[facility]07-29-[address] a referral [address] Lopes in [place]?[facility]07-29-2025 NoteTo see 1 referral to a surgeon in [place] or wherever we can get him in?[place] [id number] Nuclear medicine Diagnostic study note [facility] Imaging Services [address] [place], [place] [id number] Hepatobilliary Imaging MR#: [id number] Acct: [id number] Name: CORTNEY ACOSTA Rep #: [id number] : 1955 M 69 From: Joaquina Khan MD PCP: Dr. Anthony Chamorro MD Status: REG CLI Study:Hepatobilliary Imaging Date of Exam: 02/11/25 Exam# [id number] Ordering Dr: Ilan Hughes PROCEDURE: HEPATOBILIARY IMAGING 02/11/2025 REASON FOR EXAM: RUQ PAIN TECHNIQUE: Intravenous Choletec with planar imaging of the abdomen. RADIOPHARMACEUTICAL: 5.8 mCi technetium 99 M mebrofenin COMPARISON: 2019 FINDINGS: Homogeneous and prompt liver activity. CBD and proximal bowel activity by 30 minutes. Gallbladder activity by 2 hours. NM/Hepatobilliary Imaging IMPRESSION: Patent cystic and common bile ducts. Delayed gallbladder visualization is a nonspecific finding, correlate for possible gallbladder dysfunction. Reading Location: [place] [address] CC: [employer]-C Ilan Tariq; Dr. Anthony Chamorro MD ~ Manager Of Health: Signed [facility]07-09-2025 Telephone encounter Note* Telephone Encounter - Ignacio Daniel - 01/28/2025 2:55 PM EDT Received referral form [facility] for ruq abdominal pain. Called patient and lvm. [facility]07-09-2025 Miscellaneous Notes* Telephone Encounter - Ignacio Daniel - 01/28/2025 2:55 PM EDT Received referral form [facility] for ruq abdominal pain. Called patient and lvm. [facility] NoteThe patient stopped in the office and states he can't get in to [facility] until 04-15-[address]. [address] another referral to a different gastro--he has Medicare so no network--he can go anywhere. Call patient back to inform him of referral status.[facility]07-08-2025 Evaluation + Plan note* Assessment & Plan Note - RONAN Valerio CNP - 01/27/2025 7:35 PM EDTAssociated Problem(s): Primary hypertension Controlled. Blood pressure 129/78. Continue losartan 50 mg nightly, [id number] Evaluation + Plan note* Assessment & Plan Note - RONAN Valerio CNP - 01/27/2025 7:35 PM EDTAssociated Problem(s): Myalgia His recent labs were unremarkable. Okay to stay off the statin for another couple weeks to see if it makes any difference. If it does not I would recommend restarting it [id number] Miscellaneous Notes* Assessment & Plan Note - RONAN Valerio CNP - 01/27/2025 7:35 PM EDTAssociated Problem(s): Primary hypertension Controlled. Blood pressure 129/78. Continue losartan 50 mg nightly, * Assessment & Plan Note - RONAN Valerio CNP - 01/27/2025 7:35 PM EDTAssociated Problem(s): Myalgia His recent labs were unremarkable. Okay to stay off the statin for another couple weeks to see if it makes any difference. If it does not I would recommend restarting it * Assessment & Plan Note - RONAN Valerio CNP - 01/27/2025 7:34 PM EDTAssociated Problem(s): RUQ pain Patient has had recent labs unremarkable, multiple imaging unremarkable for GB dysfunction. Will order HIDA scan to further evaluate. Refer to gastroenterology for further evaluation. Tramadol for short-term use. OARRS reviewed and consistent with treatment plan. documented in this [facility]07-08-2025 Miscellaneous Notes* Assessment & Plan Note - RONAN Valerio CNP - 01/27/2025 7:35 PM EDTAssociated Problem(s): Primary hypertension Controlled. Blood pressure 129/78. Continue losartan 50 mg nightly, * Assessment & Plan Note - RONAN Valerio CNP - 01/27/2025 7:35 PM EDTAssociated Problem(s): Myalgia His recent labs were unremarkable. Okay to stay off the statin for another couple weeks to see if it makes any difference. If it does not I would recommend restarting it * Assessment & Plan Note - RONAN Valerio CNP - 01/27/2025 7:34 PM EDTAssociated Problem(s): RUQ pain Patient has had recent labs unremarkable, multiple imaging unremarkable for GB dysfunction. Will order HIDA scan to further evaluate. Refer to gastroenterology for further evaluation. Tramadol for short-term use. OARRS reviewed and consistent with treatment plan. * Addendum Note - RONAN Valerio CNP - 01/27/2025 3:40 PM EDT Addended by: ILAN TARIQ on: 01/28/2025 10:18 AM Modules accepted: Level of Service documented in this [facility]07-08-2025 Evaluation + Plan note* Assessment & Plan Note - RONAN Valerio CNP - 01/27/2025 7:34 PM EDTAssociated Problem(s): RUQ pain Patient has had recent labs unremarkable, multiple imaging unremarkable for GB dysfunction. Will order HIDA scan to further evaluate. Refer to gastroenterology for further evaluation. Tramadol for short-term use. OARRS reviewed and consistent with treatment plan. [facility] [id number] History of Present illness Narrative* Kaitlin Torrez - 01/27/2025 3:40 PM EDT Patient was identified by name and Date of . * RONAN Valerio CNP - 01/27/2025 3:40 PM EDT Images from the original note were not included. 01/27/2025 Cortney Acosta (: 1955) is a 69 y.o. male , Established patient, here for evaluation of the following chief complaint(s): Back Pain and Flank Pain (Right side ) ASSESSMENT/PLAN: 1. RUQ pain Assessment & Plan: Patient has had recent labs unremarkable, multiple imaging unremarkable for GB dysfunction. Will order HIDA scan to further evaluate. Refer to gastroenterology for further evaluation. Tramadol for short-term use. OARRS reviewed and consistent with treatment plan. Orders: - NM hepatobiliary scan with pharm agent w/cck - [facility] - traMADol (Ultram) 50 MG tablet; Take 1 tablet (50 mg) by mouth every 6 hours as needed for severepain (7-10) for up to 7 days., Starting e 01/27/2025, Until e 02/03/2025 at 2359, Normal 2. Primary hypertension Assessment & Plan: Controlled. Blood pressure 129/78. Continue losartan 50 mg nightly, 3. Myalgia Assessment & Plan: His recent labs were unremarkable. Okay to stay off the statin for another couple weeks to see if it makes any difference. If it does not I would recommend restarting it Follow up for as directed pending test results. SUBJECTIVE/OBJECTIVE: [facility] - Cortney Acosta (: 1955) is a 69 y.o. male , Established patient, here for the evaluation of the following chief complaint(s): Back Pain and Flank Pain (Right side ) Patient presents for ongoing problems with right-sided back pain and right upper quadrant pain. This has been going on for several years and he has had significant workup for his back pain which showed some degenerative changes. He has had the right upper quadrant evaluated several years ago with concerns at that time for gallbladder problems. He did have a negative HIDA scan in 2019. 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 He really thinks the majority of his thoracic and right upper quadrant pain is related to his gallbladder. He most recently had a whole-body scan completed by orthopedics on January 19, 2025 that showed no evidence of osseous metastatic disease and showed mild degenerative changes of the spine and multiple joints. He was offered a referral to pain management and has scheduled with them in February. He reports the pain can be pretty severe and he hadto leave work due to the pain. He is contributing it to having greasy foods over the past couple ofdays. Reports pain is worse after eating, this has been going on for years, ruq pain, nauseated. No feveror chills. Most recent labs have been unremarkable. He did stop taking the cholesterol medicine about 2 weeks ago to see if it would help with any of his arthralgias, so far it has not Current Medications[1] Review of Systems Constitutional: Positive for fatigue. Negative for activity change and chills. HENT: Negative. Respiratory: Negative. Cardiovascular: Negative. Gastrointestinal: Positive for abdominal pain and nausea. Negative for blood in stool, constipation, diarrhea and vomiting. Genitourinary: Negative for difficulty urinating. Musculoskeletal: Positive for arthralgias and back pain. Neurological: Negative. Vitals: 01/27/25 1543 BP: 129/78 Pulse: 71 Resp: 16 SpO2: 97% Weight: 146 lb (66.2 kg) Physical Exam Vitals reviewed. Constitutional: General: He is not in acute distress. Appearance: Normal appearance. He is not ill-appearing. HENT: Head: Normocephalic and atraumatic. Mouth/Throat: Mouth: Mucous membranes are moist. Pharynx: Oropharynx is clear. No posterior oropharyngeal erythema. Eyes: Conjunctiva/sclera: Conjunctivae normal. Cardiovascular: Rate and Rhythm: Normal rate and regular rhythm. Pulses: Normal pulses. Heart sounds: Normal heart sounds. Pulmonary: Effort: Pulmonary effort is normal. Breath sounds: Normal breath sounds. Abdominal: General: Bowel sounds are normal. Palpations: Abdomen is soft. There is no hepatomegaly or splenomegaly. Tenderness: There is abdominal tenderness in the right upper quadrant. There is no right CVA tenderness, left CVA tenderness, guarding or rebound. Negative signs include Cardenas's sign, Rovsing's sign, McBurney's sign, psoas sign and obturator sign. Musculoskeletal: Arms: Right lower leg: No edema. Left lower leg: No edema. Comments: Able to get on and off the exam table without difficulty Lymphadenopathy: Cervical: No cervical adenopathy. Neurological: Mental Status: He is alert and oriented to person, place, and time. Psychiatric: Mood and Affect: Mood normal. Behavior: Behavior normal. Thought Content: Thought content normal. An electronic signature was used to authenticate this note. RONAN Lagunas CNP 01/27/2025 7:36 PM [1] Current Outpatient Medications Medication Sig Dispense Refill acetaminophen (Tylenol) 500 MG tablet Take 1,000 mg by mouth every 8 hours as needed for mild pain (1-3). busPIRone (Buspar) 7.5 MG tablet Take 1 tablet (7.5 mg) by mouth 2 times daily. 180 tablet 1 losartan (Cozaar) 100 MG tablet Take 0.5 tablets (50 mg) by mouth Nightly. meloxicam (Mobic) 15 MG tablet TAKE 1 TABLET BY MOUTH EVERY MORNING WITH FOOD TO REDUCE SWELLING. DO NOT TAKE WITH OTHER NSAIDS (IBUPROFEN, ADVIL, MOTRIN, ALEVE,OR NAPROXEN) 30 tablet 3 methocarbamol (Robaxin) 500 MG tablet Take 1 tablet (500 mg) by mouth 2 times daily for 10 days. (Patient not taking: Reported on 01/27/2025) 20 tablet 0 rosuvastatin (Crestor) 5 MG tablet Take 1 tablet (5 mg) by mouth daily. (Patient not taking: Reported on 01/27/2025) 90 tablet 1 traMADol (Ultram) 50 MG tablet Take 1 tablet (50 mg) by mouth every 6 hours as needed for severe pain (7-10) for up to 7 days. 28 tablet 0 No current facility-administered medications for this visit. documented in this [facility]07-08-2025 History of Present illness Narrative* Kaitlin Torrez - 01/27/2025 3:40 PM EDT Patient was identified by name and Date of . * RONAN Valerio CNP - 01/27/2025 3:40 PM EDT Images from the original note were not included. 01/27/2025 Cortney Acosta (: 1955) is a 69 y.o. male , Established patient, here for evaluation of the following chief complaint(s): Back Pain and Flank Pain (Right side ) ASSESSMENT/PLAN: 1. RUQ pain Assessment & Plan: Patient has had recent labs unremarkable, multiple imaging unremarkable for GB dysfunction. Will order HIDA scan to further evaluate. Refer to gastroenterology for further evaluation. Tramadol for short-term use. OARRS reviewed and consistent with treatment plan. Orders: - NM hepatobiliary scan with pharm agent w/cck - [facility] - traMADol (Ultram) 50 MG tablet; Take 1 tablet (50 mg) by mouth every 6 hours as needed for severepain (7-10) for up to 7 days., Starting Sun01/27/2025, Until Sun02/03/2025 at 2359, Normal 2. Primary hypertension Assessment & Plan: Controlled. Blood pressure 129/78. Continue losartan 50 mg nightly, 3. Myalgia Assessment & Plan: His recent labs were unremarkable. Okay to stay off the statin for another couple weeks to see if it makes any difference. If it does not I would recommend restarting it Follow up for as directed pending test results. SUBJECTIVE/OBJECTIVE: [facility] - Cortney Acosta (: 1955) is a 69 y.o. male , Established patient, here for the evaluation of the following chief complaint(s): Back Pain and Flank Pain (Right side ) Patient presents for ongoing problems with right-sided back pain and right upper quadrant pain. This has been going on for several years and he has had significant workup for his back pain which showed some degenerative changes. He has had the right upper quadrant evaluated several years ago with concerns at that time for gallbladder problems. He did have a negative HIDA scan in 2019. 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 He really thinks the majority of his thoracic and right upper quadrant pain is related to his gallbladder. He most recently had a whole-body scan completed by orthopedics on January 19, 2025 that showed no evidence of osseous metastatic disease and showed mild degenerative changes of the spine and multiple joints. He was offered a referral to pain management and has scheduled with them in February. He reports the pain can be pretty severe and he hadto leave work due to the pain. He is contributing it to having greasy foods over the past couple ofdays. Reports pain is worse after eating, this has been going on for years, ruq pain, nauseated. No feveror chills. Most recent labs have been unremarkable. He did stop taking the cholesterol medicine about 2 weeks ago to see if it would help with any of his arthralgias, so far it has not Current Medications[1] Review of Systems Constitutional: Positive for fatigue. Negative for activity change and chills. HENT: Negative. Respiratory: Negative. Cardiovascular: Negative. Gastrointestinal: Positive for abdominal pain and nausea. Negative for blood in stool, constipation, diarrhea and vomiting. Genitourinary: Negative for difficulty urinating. Musculoskeletal: Positive for arthralgias and back pain. Neurological: Negative. Vitals: 01/27/25 1543 BP: 129/78 Pulse: 71 Resp: 16 SpO2: 97% Weight: 146 lb (66.2 kg) Physical Exam Vitals reviewed. Constitutional: General: He is not in acute distress. Appearance: Normal appearance. He is not ill-appearing. HENT: Head: Normocephalic and atraumatic. Mouth/Throat: Mouth: Mucous membranes are moist. Pharynx: Oropharynx is clear. No posterior oropharyngeal erythema. Eyes: Conjunctiva/sclera: Conjunctivae normal. Cardiovascular: Rate and Rhythm: Normal rate and regular rhythm. Pulses: Normal pulses. Heart sounds: Normal heart sounds. Pulmonary: Effort: Pulmonary effort is normal. Breath sounds: Normal breath sounds. Abdominal: General: Bowel sounds are normal. Palpations: Abdomen is soft. There is no hepatomegaly or splenomegaly. Tenderness: There is abdominal tenderness in the right upper quadrant. There is no right CVA tenderness, left CVA tenderness, guarding or rebound. Negative signs include Cardenas's sign, Rovsing's sign, McBurney's sign, psoas sign and obturator sign. Musculoskeletal: Arms: Right lower leg: No edema. Left lower leg: No edema. Comments: Able to get on and off the exam table without difficulty Lymphadenopathy: Cervical: No cervical adenopathy. Neurological: Mental Status: He is alert and oriented to person, place, and time. Psychiatric: Mood and Affect: Mood normal. Behavior: Behavior normal. Thought Content: Thought content normal. An electronic signature was used to authenticate this note. Ilan Tariq APRN - CHUN 01/27/2025 7:36 PM [1] Current Outpatient Medications Medication Sig Dispense Refill acetaminophen (Tylenol) 500 MG tablet Take 1,000 mg by mouth every 8 hours as needed for mild pain (1-3). busPIRone (Buspar) 7.5 MG tablet Take 1 tablet (7.5 mg) by mouth 2 times daily. 180 tablet 1 losartan (Cozaar) 100 MG tablet Take 0.5 tablets (50 mg) by mouth Nightly. meloxicam (Mobic) 15 MG tablet TAKE 1 TABLET BY MOUTH EVERY MORNING WITH FOOD TO REDUCE SWELLING. DO NOT TAKE WITH OTHER NSAIDS (IBUPROFEN, ADVIL, MOTRIN, ALEVE,OR NAPROXEN) 30 tablet 3 methocarbamol (Robaxin) 500 MG tablet Take 1 tablet (500 mg) by mouth 2 times daily for 10 days. (Patient not taking: Reported on 01/27/2025) 20 tablet 0 rosuvastatin (Crestor) 5 MG tablet Take 1 tablet (5 mg) by mouth daily. (Patient not taking: Reported on 01/27/2025) 90 tablet 1 traMADol (Ultram) 50 MG tablet Take 1 tablet (50 mg) by mouth every 6 hours as needed for severe pain (7-10) for up to 7 days. 28 tablet 0 No current facility-administered medications for this visit. documented in this [facility]07-08-2025 Note* Addendum Note - RONAN Valerio CNP - 01/27/2025 3:40 PM EDTAddended by: ILAN TARIQ on: 01/28/2025 10:18 AM Modules accepted: Level of Service [id number] Evaluation + Plan note* Assessment & Plan Note - Anthony Chamorro MD - 01/06/2025 10:27 AM EDTAssociated Problem(s): Chronic fatigue He is to continue his meloxicam and take his Medrol Dosepak that was prescribed. Lyme titers C-reactive protein and sed rate are ordered. [facility] [id number] Evaluation + Plan note* Assessment & Plan Note - Anthony Chamorro MD - 01/06/2025 10:27 AM EDTAssociated Problem(s): Pain of both shoulder joints He is to continue his meloxicam and take his Medrol Dosepak that was prescribed. Lyme titers C-reactive protein and sed rate are ordered. [facility] [id number] Evaluation + Plan note* Assessment & Plan Note - Anthony Chamorro MD - 01/06/2025 10:27 AM EDTAssociated Problem(s): Myalgia He is to continue his meloxicam and take his Medrol Dosepak that was prescribed. Lyme titers C-reactive protein and sed rate are ordered. [facility] [id number] Miscellaneous Notes* Assessment & Plan Note - Anthony Chamorro MD - 01/06/2025 10:27 AM EDTAssociated Problem(s): Chronic fatigue He is to continue his meloxicam and take his Medrol Dosepak that was prescribed. Lyme titers C-reactive protein and sed rate are ordered. * Assessment & Plan Note - Anthony Chamorro MD - 01/06/2025 10:27 AM EDT Associated Problem(s): Pain of both shoulder joints He is to continue his meloxicam and take his Medrol Dosepak that was prescribed. Lyme titers C-reactive protein and sed rate are ordered. * Assessment & Plan Note - Anthony Chamorro MD - 01/06/2025 10:27 AM EDT Associated Problem(s): Myalgia He is to continue his meloxicam and take his Medrol Dosepak that was prescribed. Lyme titers C-reactive protein and sed rate are ordered. documented in this [facility]06-17-2025 History of Present illness Narrative* Jelly Mcgarry MA - 01/06/2025 9:45 AM EDT Patient verified by last name and date of . * Anthony Chamorro MD - 01/06/2025 9:45 AM EDT Images from the original note were not included. 01/06/2025 Cortney Acosta (: 1955) is a 69 y.o. male , Established patient, here for evaluation of the following chief complaint(s): Blood Work (Pt is asking to be tested for lyme disease ) ASSESSMENT/PLAN: 1. Myalgia Assessment & Plan: He is to continue his meloxicam and take his Medrol Dosepak that was prescribed. Lyme titers C-reactive protein and sed rate are ordered. Orders: - LYME ANTIBODY SCREEN WITH REFLEX TO IMMUNOBLOT - C-reactive protein - Sedimentation rate, automated 2. Pain of both shoulder joints Assessment & Plan: He is to continue his meloxicam and take his Medrol Dosepak that was prescribed. Lyme titers C-reactive protein and sed rate are ordered. Orders: - LYME ANTIBODY SCREEN WITH REFLEX TO IMMUNOBLOT - C-reactive protein - Sedimentation rate, automated 3. Chronic fatigue Assessment & Plan: He is to continue his meloxicam and take his Medrol Dosepak that was prescribed. Lyme titers C-reactive protein and sed rate are ordered. Orders: - LYME ANTIBODY SCREEN WITH REFLEX TO IMMUNOBLOT - C-reactive protein - Sedimentation rate, automated Follow up if symptoms worsen or fail to improve. SUBJECTIVE/OBJECTIVE: EVETTE Donnie comes in today for follow-up on his bilateral shoulder pain, muscle aches, fatigue and hesays he is waiting on his bone scan which is to be done next week. And he will follow-up with Dr. Lanza for review of it. He has been to the emergency room a number of times for these complaints and he has had all kinds of blood work done but has never had Lyme titers drawn. He also has never had C-reactive protein or sed rate drawn. Review of Systems Constitutional: Negative for chills and fever. Respiratory: Negative for cough and shortness of breath. Cardiovascular: Negative for chest pain and palpitations. Musculoskeletal: Positive for arthralgias, back pain and myalgias. Neurological: Negative for weakness and numbness. Vitals: 01/06/25 0943 BP: 132/81 Pulse: 60 SpO2: 95% Weight: 143 lb 9.6 oz (65.1 kg) Height: 5' 5" (1.651 m) Physical Exam Vitals and nursing note reviewed. Constitutional: General: He is not in acute distress. Appearance: Normal appearance. Musculoskeletal: Comments: He has minimal tenderness to palpation of his back and shoulders, he has normal range of motion of his neck back upper extremities. Muscle strength is 5/5 both upper extremities in all directions and equal bilateral. Neurological: Mental Status: He is alert. An electronic signature was used to authenticate this note. Anthony Chamorro MD 01/06/2025 10:28 AM documented in this [facility]06-16-2025 History of Present illness Narrative* Quoc Us APRN - [employer] INST[employer]ER - 01/05/2025 3:00 PM EDT Images from the original note were not included. 01/05/2025 Cortney Acosta (: 1955) is a 69 y.o. male , Established patient, here for evaluation of the following chief complaint(s): ER Follow-up (Pain between shoulder blades, 3-4 weeks ( feeling better at the moment) ) ASSESSMENT/PLAN: 1. Chronic midline thoracic back pain - Chronic, etiology unknown, suspect some contribution from arthritis - Continue medications as prescribed by the ED - Follow-up with specialist as scheduled for bone scan on 01/19/2025 - Discussed signs and symptoms warranting immediate attention- verbalized understanding. - Will provide a letter excusing him from work this week Follow up if symptoms worsen or fail to improve. SUBJECTIVE/OBJECTIVE: HPI -Cortney presents today for follow-up from an ER visit due to back pain between both of his shoulder blades. This is a chronic issue for him. In the emergency room as well as orthopedics for this concern multiple times. He follows up with a provider at the [facility] and is actually supposed to have an entire body bone scan performed on 01/19/2025. He was told he has significant arthritis and bone spurs in his spine and shoulders. He presented to the ER primarily complaining of pain in his upper thoracic spine at the level of his shoulder blades. States he has been in constant pain for the last couple of months. Denies any associated chest pain. He was seen in the ER last month due to these concerns and at that time was worried he was having a heart attack, but his cardiac workup at that time was reassuring. Denies loss of bowel or bladder function. Denies any fecal or urinary retention. Denies saddle anesthesia. Was discharged from the ER with a Medrol Dosepak, ibuprofen 600 mg every 6 hours as needed, Robaxin, 1000 mg Tylenol, and a lidocaine 4% patch. States laying on his stomach helps to alleviate the pain- "laying down in general". States he has had to leave work on multiple occasions due to this pain and is requesting a letter to excuse him from work this week to recover. The of his thoracic spine completed in the emergency room that was negative for acute findings. Didshow mild degenerative changes. Review of Systems Respiratory: Negative for shortness of breath. Cardiovascular: Negative for chest pain. Musculoskeletal: Positive for back pain. Skin: Negative for color change and rash. Vitals: 01/05/25 1450 01/05/25 1517 BP: (!) 150/89 136/88 BP Location: Left arm Patient Position: Sitting BP Cuff Size: Adult Pulse: 79 SpO2: 97% Weight: 146 lb 9.6 oz (66.5 kg) Height: 5' 5" (1.651 m) Body mass index is 24.4 kg/m . Physical Exam Constitutional: General: He is not in acute distress. Appearance: He is not ill-appearing or diaphoretic. Cardiovascular: Rate and Rhythm: Normal rate and regular rhythm. Heart sounds: Normal heart sounds. No murmur heard. No friction rub. Pulmonary: Effort: Pulmonary effort is normal. Breath sounds: Normal breath sounds. Musculoskeletal: Thoracic back: No swelling, edema, deformity, signs of trauma or spasms. Decreased range of motion. Back: Neurological: Mental Status: He is alert. Data Reviewed Labs: Imaging/Testing: Narrative & Impression Patient Name: CORTNEY ACOSTA : 1955 Exam Date/Time: 01/04/2025 12:48 Procedure: CT THORACIC SPINE WO IV CONTRAST Ordering Provider: BRITO MADISON Reason For Exam: acute on chronic pain, TTP in midline between shoulder blades with radiation bilaterally CT thoracic spine without contrast HISTORY: Pain TECHNIQUE: 1 mm axial images without intravenous contrast, multiplanar reconstructions Dose reduction was employed with automated exposure control. Mild degenerative changes. No fracture or dislocation. No back soft tissue abnormality. IMPRESSION: No acute findings. Report Dictated on Electronically Signed By: Delio Padgett MD Electronically Signed Date/Time: 01/04/2025 1:27 PM EDT An electronic signature was used to authenticate this note. RONAN Green CNP 01/05/2025 3:21 PM documented in this [facility]06-16-2025 History of Present illness Narrative* RONAN Green CNP - 01/05/2025 3:00 PM EDT Images from the original note were not included. 01/05/2025 Cortney Acosta (: 1955) is a 69 y.o. male , Established patient, here for evaluation of the following chief complaint(s): ER Follow-up (Pain between shoulder blades, 3-4 weeks ( feeling better at the moment) ) ASSESSMENT/PLAN: 1. Chronic midline thoracic back pain - Chronic, etiology unknown, suspect some contribution from arthritis - Continue medications as prescribed by the ED - Follow-up with specialist as scheduled for bone scan on 01/19/2025 - Discussed signs and symptoms warranting immediate attention- verbalized understanding. - Will provide a letter excusing him from work this week Follow up if symptoms worsen or fail to improve. SUBJECTIVE/OBJECTIVE: EVETTE Fields presents today for follow-up from an ER visit due to back pain between both of his shoulder blades. This is a chronic issue for him. In the emergency room as well as orthopedics for this concern multiple times. He follows up with a provider at the [facility] and is actually supposed to have an entire body bone scan performed on 01/19/2025. He was told he has significant arthritis and bone spurs in his spine and shoulders. He presented to the ER primarily complaining of pain in his upper thoracic spine at the level of his shoulder blades. States he has been in constant pain for the last couple of months. Denies any associated chest pain. He was seen in the ER last month due to these concerns and at that time was worried he was having a heart attack, but his cardiac workup at that time was reassuring. Denies loss of bowel or bladder function. Denies any fecal or urinary retention. Denies saddle anesthesia. Was discharged from the ER with a Medrol Dosepak, ibuprofen 600 mg every 6 hours as needed, Robaxin, 1000 mg Tylenol, and a lidocaine 4% patch. States laying on his stomach helps to alleviate the pain- "laying down in general". States he has had to leave work on multiple occasions due to this pain and is requesting a letter to excuse him from work this week to recover. The of his thoracic spine completed in the emergency room that was negative for acute findings. Didshow mild degenerative changes. Review of Systems Respiratory: Negative for shortness of breath. Cardiovascular: Negative for chest pain. Musculoskeletal: Positive for back pain. Skin: Negative for color change and rash. Vitals: 01/05/25 1450 01/05/25 1517 BP: (!) 150/89 136/88 BP Location: Left arm Patient Position: Sitting BP Cuff Size: Adult Pulse: 79 SpO2: 97% Weight: 146 lb 9.6 oz (66.5 kg) Height: 5' 5" (1.651 m) Body mass index is 24.4 kg/m . Physical Exam Constitutional: General: He is not in acute distress. Appearance: He is not ill-appearing or diaphoretic. Cardiovascular: Rate and Rhythm: Normal rate and regular rhythm. Heart sounds: Normal heart sounds. No murmur heard. No friction rub. Pulmonary: Effort: Pulmonary effort is normal. Breath sounds: Normal breath sounds. Musculoskeletal: Thoracic back: No swelling, edema, deformity, signs of trauma or spasms. Decreased range of motion. Back: Neurological: Mental Status: He is alert. Data Reviewed Labs: Imaging/Testing: Narrative & Impression [facility] Name[facility]STA [facility] 1955 [id number] Exam Date/Time: 01/04/2025 12:48 Procedure: CT THORACIC SPINE WO IV CONTRAST Ordering Provider: BRITO MADISON Reason For Exam: acute on chronic pain, TTP in midline between shoulder blades with radiation bilaterally CT thoracic spine without contrast HISTORY: Pain TECHNIQUE: 1 mm axial images without intravenous contrast, multiplanar reconstructions Dose reduction was employed with automated exposure control. Mild degenerative changes. No fracture or dislocation. No back soft tissue abnormality. IMPRESSION: No acute findings. Report Dictated on Electronically Signed By: Delio Padgett MD Electronically Signed Date/Time: 01/04/2025 1:27 PM EDT An electronic signature was used to authenticate this note. RONAN Green CNP 01/05/2025 3:21 PM documented in this [facility]06-16-2025 Miscellaneous Notes* Addendum Note - RONAN Green CNP - 01/05/2025 3:00 PM EDTAddended by: QUOC US on: 01/06/2025 10:15 AM Modules accepted: Level of Service documented in this [facility]06-16-2025 Note* Addendum Note - RONAN Green CNP - 01/05/2025 3:00 PM EDTAddended by: QUOC US on: 01/06/2025 10:15 AM Modules accepted: [id number] Discharge [facility]* Discharge Instructions* Fabiola Brito PA-C - 01/04/2025 2:30 PM EDT In the emergency department today for evaluation of back pain. All of your lab work and imaging today is reassuring. I am going to start you on a steroid taper, as well as a muscle relaxer. You may continue to use ibuprofen and Tylenol, but be mindful of daily limits and do not exceed more than 4000 mg. Keep your previously scheduled appointment for 01-19 for your bone scan, and return to the emergency department should anything change or worsen. * Attachments The following attachments cannot be sent through Care Everywhere. * Upper Back Pain Discharge Instructions ([place]) documented in this [facility]06-15-2025 Emergency department Note* Fabiola Brito PA-C - 01/04/2025 10:56 AM EDT EMERGENCY DEPARTMENT ENCOUNTER Pt Name: Cortney Acosta Birthdate 1955 Date of evaluation: 01/04/2025 ED Provider: Fabiola Brito PA-C CHIEF COMPLAINT Chief Complaint Patient presents with Back Pain HISTORY OF PRESENT ILLNESS (Location/Symptom, Timing/Onset, Context/Setting, Quality, Duration, Modifying Factors, Severity) Note limiting factors. I wore appropriate PPE for the entirety of this encounter. HPI Cortney Acosta is a 69 y.o. male who presents to the emergency department his for evaluation of ongoing back pain. Patient states that he has a very longstanding history of chronic back pain, bothin the thoracic and lumbar regions. Has been seen emergency department for this, as well as by orthopedics as an outpatient. Follows with a provider at the [facility] and is actually supposed to have an entire body bone scan performed here on 01-19. Reports he was told he has significant arthritis and bone spurs in his spine and shoulders. Patient presents today primarily complaining of pain in his upper thoracic spine, at the level of his shoulder blades. States it is bandlike across his tiffany k. Has been a constant pain for the last couple of months, and does not seem to have acutely worsened. No ripping or tearing type sensation into the back. No numbness, tingling, or weakness into the extremities. No associated chest pain, but he states that he feels like he is tense all the time andsometimes the pain feels like it does take his breath away. No lightheadedness or dizziness. No history of OH, DVT, or PE. No recent mobilizations, travel, or procedures. No known history of clottingdisorder. Was seen for this last month because he was concerned he was having a heart attack, but states that his cardiac workup at that time was reassuring. Is primarily taking anti-inflammatories and meloxicam for his pain. No loss of bowel or bladder. No fecal or urinary retention. No saddle anesthesia. No history of IV drug use. No hardware placement within the spine. No history of surgeries within the abdomen. No abdominal pain. Nursing Notes were reviewed. Limitations to history: None Outside historians: None REVIEW OF SYSTEMS Review of Systems 14 systems reviewed, positives and pertinent negatives as per HPI. All other systems were reviewed and are negative. PAST MEDICAL HISTORY Medical History[1] SURGICAL HISTORY Surgical History[2] CURRENT MEDICATIONS Discharge Medication List as of 01/04/2025 2:31 PM CONTINUE these medications which have NOT CHANGED Details !! acetaminophen (Tylenol) 500 MG tablet Take 1,000 mg by mouth every 8 hours as needed for mild pain (1-3)., Historical Med busPIRone (Buspar) 7.5 MG tablet Take 1 tablet (7.5 mg) by mouth 2 times daily., Starting Di 01/01/2025, Normal losartan (Cozaar) 100 MG tablet Take 0.5 tablets (50 mg) by mouth Nightly., Starting Sun12/03/2024,No Print meloxicam (Mobic) 15 MG tablet TAKE 1 TABLET BY MOUTH EVERY MORNING WITH FOOD TO REDUCE SWELLING. DO NOT TAKE WITH OTHER NSAIDS (IBUPROFEN, ADVIL, MOTRIN, ALEVE,OR NAPROXEN), Starting Di 11/27/2024, Until Sun11/27/2025 at 2359, Normal rosuvastatin (Crestor) 5 MG tablet Take 1 tablet (5 mg) by mouth daily., Starting 12/30/2024, Until 06/28/2025, Normal !! - Potential duplicate medications found. Please discuss with provider. ALLERGIES Penicillins FAMILY HISTORY Family History[3] SOCIAL HISTORY Social History[4] SCREENINGS PHYSICAL EXAM ED Triage Vitals [01/04/25 1058] Temp Heart Rate Resp BP 36.7 C (98.1 F) 61 20 138/87 SpO2 Temp Source Heart Rate Source Patient Position 99 % Temporal Monitor Sitting BP Location FiO2 (%) Right arm -- Physical Exam Vitals and nursing note reviewed. Constitutional: General: He is not in acute distress. Appearance: He is well-developed. Comments: Pleasant. Ambulatory back from triage area without difficulty or deficit. Speaking comfortably in full sentences. HENT: Head: Normocephalic and atraumatic. Eyes: Extraocular Movements: Extraocular movements intact. Conjunctiva/sclera: Conjunctivae normal. Pupils: Pupils are equal, round, and reactive to light. Neck: Comments: Full range of motion without pain. No midline tenderness. Vasculature nontender. Cardiovascular: Rate and Rhythm: Normal rate and regular rhythm. Heart sounds: No murmur heard. Comments: Radial pulses 2+ and symmetric bilaterally. No murmurs rubs or gallops. Pulmonary: Effort: Pulmonary effort is normal. No respiratory distress. Breath sounds: Normal breath sounds. Abdominal: Palpations: Abdomen is soft. Tenderness: There is no abdominal tenderness. Comments: Soft and nontender without guarding or rebound. No palpable masses or hernias. Musculoskeletal: General: No swelling. Cervical back: Neck supple. Comments: L1-L2 inner thigh sensation intact L2 adduct thigh/cross legs 5/5 L3 extend knee 5/5 BL L4 dorsiflex ankle (up) 5/5 BL L5 point great toe 5/5 BL L2/3/4 knee reflex intact BL S1 flex knee 5/5 BL S2 plantarflexion toes 5/5 BL S3/4/5 groin/inner thigh sensation intact No midline cervical tenderness. Generalized thoracic spinal and paraspinal muscle tenderness without palpable step-off or deformity. No overlying skin changes or abrasions. No vesicular type lesions.Full range of motion of 5 out of 5 strength in the bilateral upper and lower extremities. Distal pulses all 2+ and symmetric bilaterally. Sensation is intact. Skin is warm well-perfused. Compartmentsare soft. Skin: General: Skin is warm and dry. Capillary Refill: Capillary refill takes less than 2 seconds. Neurological: Mental Status: He is alert and oriented to person, place, and time. Psychiatric: Mood and Affect: Mood normal. DIAGNOSTIC RESULTS RADIOLOGY (Per Emergency Physician): Interpretation per the Radiologist below, if available at the time of this note: CT thoracic spine wo IV contrast Final Result No acute findings. Report Dictated on Electronically Signed By: Delio Padgett MD Electronically Signed Date/Time: 01/04/2025 1:27 PM EDT LABS: Labs Reviewed CBC WITH AUTO DIFFERENTIAL - Abnormal Result Value Auto WBC 5.9 RBC 4.64 Hemoglobin 14.0 Hematocrit 41.3 MCV 89.0 MCH 30.2 MCHC 33.9 RDW 12.4 Platelets 286 MPV 8.5 (*) nRBC 0.0 Neutrophils Relative 69.8 Lymphocytes Relative 23.1 Monocytes Relative 6.1 Eosinophils Relative 0.5 Basophils Relative 0.3 Immature Grans % 0.2 Neutrophils Absolute 4.1 Lymphocytes Absolute 1.4 Monocytes Absolute 0.4 Eosinophils Absolute 0.0 Basophils Absolute 0.0 Immature Grans Absolute 0.0 HIGH SENSITIVITY TROPONIN, SERIAL BASELINE - Normal Troponin HS Serial Baseline <3 D-DIMER,QUANTITATIVE - Normal D-DIMER, INNOVANCE 0.23 Narrative: Innovance D-Dimer values of <0.50 mg/L FEU can be used in combination with a pre-test probability model (e.g. Well's) to exclude pulmonary embolism (PE) disease, as well as an aid in the diagnosisof deep vein thrombosis (DVT). COMPREHENSIVE METABOLIC PANEL - Normal SODIUM 139 POTASSIUM 4.8 CHLORIDE 104 CARBON DIOXIDE 26 ANION GAP 9 UREA NITROGEN 18 CREATININE 0.95 GLUCOSE 103 CALCIUM 9.3 AST (SGOT) 17 ALT 14 ALKALINE PHOSPHATASE 59 ALBUMIN 3.8 BILIRUBIN, TOTAL 0.5 TOTAL PROTEIN 6.7 eGFR 87.7 HIGH SENSITIVITY TROPONIN, SERIAL, SECOND TEST - Normal 2h Troponin HS (Serial 2nd Troponin) 3 All other labs were within normal range or not returned as of this dictation. EMERGENCY DEPARTMENT COURSE and DIFFERENTIAL DIAGNOSIS/MDM: Vitals: Vitals: 01/04/25 1057 01/04/25 1058 01/04/25 1101 BP: 138/87 BP Location: Right arm Patient Position: Sitting Pulse: 61 Resp: 20 Temp: 36.7 C (98.1 F) TempSrc: Temporal SpO2: 99% 99% Weight: 68 kg (150 lb) Height: 1.651 m (5' 5") Medications HYDROcodone-acetaminophen ([place]) 5-325 MG per tablet 1 tablet (1 tablet Oral Given 01/04/25 1130) I independently evaluated the patient with supervising attending physician available as needed for collaboration. Nursing notes and medical records reviewed. Differential considerations included PE, dissection, ACS, pneumonia, URI LRI, vertebral compressionfracture, bulging disc, radiculopathy/myelopathy Initial medical management includes [place] Initial workup includes CBC, CMP, troponin, dimer, EKG Other workup considerations included chest x-ray versus CTA versus CT of the thoracic spine -hold off on ordering imaging until D-dimer resulted. After dimer resulted normal, obtained a CT of the thoracic spine. Patient has had multiple chest x-rays recently, none of which showed consolidative process or widening of the mediastinum to suggest underlying aortic dissection or aneurysm. Dimer is similarly normal, so a low index of suspicion for that at this time. Upon reassessment patient remains nontoxic. No acute distress. Ambulating to and from bathroom. Is reporting some interval improvement of his pain after medication administration. Repeat examination with intact neurovascular status. Lab workup results CBC without leukocytosis or acute anemia. CMP without fluid electrolyte abnormality, CHAD, or transaminitis. Initial troponin less than 3. 2- hour troponin 3. D-dimer normal. EKG sinus rhythm sinus rhythm nonischemic with rate of 53. No evidence of STEMI. Imaging results per radiology: CT Mild degenerative changes. No fracture or dislocation. No back soft tissue abnormality. IMPRESSION: No acute findings. I completed a structured, evidence-based clinical evaluation to screen for acute non-traumatic spinal emergencies. The patient has a normal detailed neurologic exam and a low red flag score. Patient denies any history of new numbness, weakness, incontinence of bowel or bladder, constipation, saddleanesthesia or paresthesias. I estimate there is LOW risk for ABDOMINAL AORTIC ANEURYSM, CAUDA EQUINA SYNDROME, EPIDURAL MASS LESION, OR CORD COMPRESSION. I have discussed with the patient my clinical impression and the result of an evidence-based clinical evaluation to screen for spinal epidural abscess and other spinal emergencies, as well as the risk of further testing and hospitalization. The evidence shows that the risk for an acute spinal emergency is less than 1%. Although the risk of an acute spinal emergency has not been completely eliminated, the risks of further testing likely exceed any potential benefit, and the patient agrees with not pursuing further emergent evaluation for causes of back pain at this time. In brief, this is a 69-year-old gentleman who presented to the emergency department for evaluation of chronic ongoing back pain. Patient with longstanding history of back pain and has been seen multiple times for this. Follows with an orthopedic provider, and is supposed to have a bone scan performed on 01/19 to further evaluate this. Presents today reporting pain at between her shoulder blades, generally across the thoracic region. No direct injury or trauma to the area, but does state that he was out shopping this weekend, and pushing the grocery cart really seem to exacerbate his symptoms. C urrently only taking meloxicam. Workup obtained, as well as D-dimer to evaluate for possible pulmonary embolism versus acute aorticprocess. Troponins negative, dimer is negative, and EKG is nonischemic. CT of the thoracic spine was obtained which does not show any evidence of acute injury or other abnormalities. Discussed with patient that this is likely an exacerbation of his ongoing, chronic pain. Recommended continued management with ibuprofen and Tylenol, but will also send with a prescription for lidocaine patches, Medrol Dosepak, and Robaxin. Will plan to have him follow-up very closely with his primary care provider, and complete his bone scan on 01/19. Very strict ER return precautions were discussed, patient was comfortable and agreeable plans for discharge. Discharged in stable addition with normal vital signs. FINAL IMPRESSION 1. Chronic midline thoracic back pain DISPOSITION Discharge 01/04/2025 02:22:09 PM Shared decision making preformed. PATIENT REFERRED TO: Anthony Chamorro MD [address] [place] [address], [address] [facility] [address] Schedule an appointment as soon as possible for a visit [facility] [address] [facility] [id number] As needed, If symptoms worsen DISCHARGE MEDICATIONS: Discharge Medication List as of 01/04/2025 2:31 PM START taking these medications Details ibuprofen 600 MG tablet Take 1 tablet (600 mg) by mouth every 6 hours as needed for mild pain (1-3)for up to 7 days., Starting 01/04/2025, Until 01/11/2025 at 2359, Normal Lidocaine 4 % patch Place 1 patch on the skin daily for 10 days., Starting 01/04/2025, Until Sun01/14/2025, Normal methocarbamol (Robaxin) 500 MG tablet Take 1 tablet (500 mg) by mouth 2 times daily for 10 days., Starting 01/04/2025, Until Sun01/14/2025, Normal methylPREDNISolone (Medrol Dospak) 4 MG tablets Follow schedule on package instructions, Normal !! acetaminophen (Tylenol) 500 MG tablet Take 2 tablets (1,000 mg) by mouth every 8 hours as neededfor mild pain (1-3) for up to 7 days., Starting 01/04/2025, Until 01/11/2025 at 2359, Print !! - Potential duplicate medications found. Please discuss with provider. (Comment: Please note this report has been produced using speech recognition software and may contain errors related to that system including errors in grammar, punctuation, and spelling, as well as words and phrases that may be inappropriate. If there are any questions or concerns please feel freeto contact the dictating provider for clarification.) Fabiola Brito PA-C (electronically signed) Emergency Medicine Provider [1] Past Medical History: Diagnosis Date Acute midline low back pain without sciatica 04/07/2024 Arthritis Chronic back pain Chronic pain Degenerative joint disease of right hip Hypertension Muscle spasm 02/13/2024 Rib pain on right side 08/15/2024 Upper back pain 02/13/2024 Viral URI with cough 08/15/2024 Weakness of both lower extremities 04/07/2024 [2] Past Surgical History: Procedure Laterality Date BACK SURGERY 05/26/2024 CARPAL TUNNEL RELEASE Right 20 years ago COLONOSCOPY COLONOSCOPY TOTAL HIP ARTHROPLASTY Right 02/28/2022 RIGHT TOTAL HIP ARTHROPLASTY WITH DIRECT ANDTERIOR APPROACH [3] Family History Problem Relation Name Age of Onset Emphysema Mother Cancer Father [4] Social History Socioeconomic History Marital status: Tobacco Use Smoking status: Never Smokeless tobacco: Former Quit date: 12/2023 Vaping Use Vaping status: Never Used Substance and Sexual Activity Alcohol use: Not Currently Alcohol/week: 2.0 standard drinks of alcohol Types: 2 Standard drinks or equivalent per week Comment: Very occasional Drug use: No Social History Narrative Lives at home with - of 30 years Rebekah - 1 boy son previous-partner. 1 child from previous partner son- lives in [place] (somewhat estranged). 8 grandkids and 1 great. 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 Rebekah at home- good health- fibromylgia. Social Drivers of Health Financial Resource Strain: Low Risk (12/11/2024) Overall Financial Resource Strain (CARDIA) Difficulty of Paying Living Expenses: Not very hard Food Insecurity: No Food Insecurity (12/11/2024) Hunger Vital Sign Worried About Running Out of Food in the Last Year: Never true Ran Out of Food in the Last Year: Never true Transportation Needs: No Transportation Needs (12/11/2024) PRAPARE - Transportation Lack of Transportation (Medical): No Lack of Transportation (Non-Medical): No Physical Activity: Sufficiently Active (12/11/2024) Exercise Vital Sign Days of Exercise per Week: 7 days Minutes of Exercise per Session: 150+ min Stress: No Stress Concern Present (12/11/2024) [employer] - Occupational Stress Questionnaire Feeling of Stress : Not at all Social Connections: Moderately Isolated (12/11/2024) Social Connection and Isolation Panel [NHANES] Frequency of Communication with Friends and Family: More than three times a week Frequency of Social Gatherings with Friends and Family: Three times a week Attends Zoroastrian Services: Never Active Member of Clubs or Organizations: No Attends Club or Organization Meetings: Never Marital Status: Intimate Partner Violence: Not At Risk (12/11/2024) Humiliation, Afraid, Rape, and Kick questionnaire Fear of Current or Ex-Partner: No Emotionally Abused: No Physically Abused: No Sexually Abused: No Housing Stability: Low Risk (12/11/2024) Housing Stability Vital Sign Unable to Pay for Housing in the Last Year: No Number of Times Moved in the Last Year: 0 Homeless in the Last Year: No Fabiola Brito PA-C 01/04/251913 * Weston Luke RN - 01/04/2025 10:56 AM EDT Pt complains of mid back pack and lower back pain x 6 weeks. [id number] Emergency department Triage note* Weston Luke RN - 01/04/2025 10:56 AM EDT Pt complains of mid back pack and lower back pain x 6 weeks. [id number] Emergency department Note* Fabiola Brito PA-C - 01/04/2025 10:56 AM EDT EMERGENCY DEPARTMENT ENCOUNTER Pt Name: Cortney Acosta Birthdate 1955 Date of evaluation: 01/04/2025 ED Provider: Fabiola Brito PA-C CHIEF COMPLAINT Chief Complaint Patient presents with Back Pain HISTORY OF PRESENT ILLNESS (Location/Symptom, Timing/Onset, Context/Setting, Quality, Duration, Modifying Factors, Severity) Note limiting factors. I wore appropriate PPE for the entirety of this encounter. HPI Cortney Acosta is a 69 y.o. male who presents to the emergency department his for evaluation of ongoing back pain. Patient states that he has a very longstanding history of chronic back pain, bothin the thoracic and lumbar regions. Has been seen emergency department for this, as well as by orthopedics as an outpatient. Follows with a provider at the [facility] and is actually supposed to have an entire body bone scan performed here on 01-19. Reports he was told he has significant arthritis and bone spurs in his spine and shoulders. Patient presents today primarily complaining of pain in his upper thoracic spine, at the level of his shoulder blades. States it is bandlike across his tiffany k. Has been a constant pain for the last couple of months, and does not seem to have acutely worsened. No ripping or tearing type sensation into the back. No numbness, tingling, or weakness into the extremities. No associated chest pain, but he states that he feels like he is tense all the time andsometimes the pain feels like it does take his breath away. No lightheadedness or dizziness. No history of OH, DVT, or PE. No recent mobilizations, travel, or procedures. No known history of clottingdisorder. Was seen for this last month because he was concerned he was having a heart attack, but states that his cardiac workup at that time was reassuring. Is primarily taking anti-inflammatories and meloxicam for his pain. No loss of bowel or bladder. No fecal or urinary retention. No saddle anesthesia. No history of IV drug use. No hardware placement within the spine. No history of surgeries within the abdomen. No abdominal pain. Nursing Notes were reviewed. Limitations to history: None Outside historians: None REVIEW OF SYSTEMS Review of Systems 14 systems reviewed, positives and pertinent negatives as per HPI. All other systems were reviewed and are negative. PAST MEDICAL HISTORY Medical History[1] SURGICAL HISTORY Surgical History[2] CURRENT MEDICATIONS Discharge Medication List as of 01/04/2025 2:31 PM CONTINUE these medications which have NOT CHANGED Details !! acetaminophen (Tylenol) 500 MG tablet Take 1,000 mg by mouth every 8 hours as needed for mild pain (1-3)., Historical Med busPIRone (Buspar) 7.5 MG tablet Take 1 tablet (7.5 mg) by mouth 2 times daily., Starting Di 01/01/2025, Normal losartan (Cozaar) 100 MG tablet Take 0.5 tablets (50 mg) by mouth Nightly., Starting Sun12/03/2024,No Print meloxicam (Mobic) 15 MG tablet TAKE 1 TABLET BY MOUTH EVERY MORNING WITH FOOD TO REDUCE SWELLING. DO NOT TAKE WITH OTHER NSAIDS (IBUPROFEN, ADVIL, MOTRIN, ALEVE,OR NAPROXEN), Starting Di 11/27/2024, Until Sun11/27/2025 at 2359, Normal rosuvastatin (Crestor) 5 MG tablet Take 1 tablet (5 mg) by mouth daily., Starting Tu12/30/2024, Until 06/28/2025, Normal !! - Potential duplicate medications found. Please discuss with provider. ALLERGIES Penicillins FAMILY HISTORY Family History[3] SOCIAL HISTORY Social History[4] SCREENINGS PHYSICAL EXAM ED Triage Vitals [01/04/25 1058] Temp Heart Rate Resp BP 36.7 C (98.1 F) 61 20 138/87 SpO2 Temp Source Heart Rate Source Patient Position 99 % Temporal Monitor Sitting BP Location FiO2 (%) Right arm -- Physical Exam Vitals and nursing note reviewed. Constitutional: General: He is not in acute distress. Appearance: He is well-developed. Comments: Pleasant. Ambulatory back from triage area without difficulty or deficit. Speaking comfortably in full sentences. HENT: Head: Normocephalic and atraumatic. Eyes: Extraocular Movements: Extraocular movements intact. Conjunctiva/sclera: Conjunctivae normal. Pupils: Pupils are equal, round, and reactive to light. Neck: Comments: Full range of motion without pain. No midline tenderness. Vasculature nontender. Cardiovascular: Rate and Rhythm: Normal rate and regular rhythm. Heart sounds: No murmur heard. Comments: Radial pulses 2+ and symmetric bilaterally. No murmurs rubs or gallops. Pulmonary: Effort: Pulmonary effort is normal. No respiratory distress. Breath sounds: Normal breath sounds. Abdominal: Palpations: Abdomen is soft. Tenderness: There is no abdominal tenderness. Comments: Soft and nontender without guarding or rebound. No palpable masses or hernias. Musculoskeletal: General: No swelling. Cervical back: Neck supple. Comments: L1-L2 inner thigh sensation intact L2 adduct thigh/cross legs 5/5 L3 extend knee 5/5 BL L4 dorsiflex ankle (up) 5/5 BL L5 point great toe 5/5 BL L2/3/4 knee reflex intact BL S1 flex knee 5/5 BL S2 plantarflexion toes 5/5 BL S3/4/5 groin/inner thigh sensation intact No midline cervical tenderness. Generalized thoracic spinal and paraspinal muscle tenderness without palpable step-off or deformity. No overlying skin changes or abrasions. No vesicular type lesions.Full range of motion of 5 out of 5 strength in the bilateral upper and lower extremities. Distal pulses all 2+ and symmetric bilaterally. Sensation is intact. Skin is warm well-perfused. Compartmentsare soft. Skin: General: Skin is warm and dry. Capillary Refill: Capillary refill takes less than 2 seconds. Neurological: Mental Status: He is alert and oriented to person, place, and time. Psychiatric: Mood and Affect: Mood normal. DIAGNOSTIC RESULTS RADIOLOGY (Per Emergency Physician): Interpretation per the Radiologist below, if available at the time of this note: CT thoracic spine wo IV contrast Final Result No acute findings. Report Dictated on Electronically Signed By: Delio Padgett MD Electronically Signed Date/Time: 01/04/2025 1:27 PM EDT LABS: Labs Reviewed CBC WITH AUTO DIFFERENTIAL - Abnormal Result Value Auto WBC 5.9 RBC 4.64 Hemoglobin 14.0 Hematocrit 41.3 MCV 89.0 MCH 30.2 MCHC 33.9 RDW 12.4 Platelets 286 MPV 8.5 (*) nRBC 0.0 Neutrophils Relative 69.8 Lymphocytes Relative 23.1 Monocytes Relative 6.1 Eosinophils Relative 0.5 Basophils Relative 0.3 Immature Grans % 0.2 Neutrophils Absolute 4.1 Lymphocytes Absolute 1.4 Monocytes Absolute 0.4 Eosinophils Absolute 0.0 Basophils Absolute 0.0 Immature Grans Absolute 0.0 HIGH SENSITIVITY TROPONIN, SERIAL BASELINE - Normal Troponin HS Serial Baseline <3 D-DIMER,QUANTITATIVE - Normal D-DIMER, INNOVANCE 0.23 Narrative: Innovance D-Dimer values of <0.50 mg/L FEU can be used in combination with a pre-test probability model (e.g. Well's) to exclude pulmonary embolism (PE) disease, as well as an aid in the diagnosisof deep vein thrombosis (DVT). COMPREHENSIVE METABOLIC PANEL - Normal SODIUM 139 POTASSIUM 4.8 CHLORIDE 104 CARBON DIOXIDE 26 ANION GAP 9 UREA NITROGEN 18 CREATININE 0.95 GLUCOSE 103 CALCIUM 9.3 AST (SGOT) 17 ALT 14 ALKALINE PHOSPHATASE 59 ALBUMIN 3.8 BILIRUBIN, TOTAL 0.5 TOTAL PROTEIN 6.7 eGFR 87.7 HIGH SENSITIVITY TROPONIN, SERIAL, SECOND TEST - Normal 2h Troponin HS (Serial 2nd Troponin) 3 All other labs were within normal range or not returned as of this dictation. EMERGENCY DEPARTMENT COURSE and DIFFERENTIAL DIAGNOSIS/MDM: Vitals: Vitals: 01/04/25 1057 01/04/25 1058 01/04/25 1101 BP: 138/87 BP Location: Right arm Patient Position: Sitting Pulse: 61 Resp: 20 Temp: 36.7 C (98.1 F) TempSrc: Temporal SpO2: 99% 99% Weight: 68 kg (150 lb) Height: 1.651 m (5' 5") Medications HYDROcodone-acetaminophen (Warwick) 5-325 MG per tablet 1 tablet (1 tablet Oral Given 01/04/25 1130) I independently evaluated the patient with supervising attending physician available as needed for collaboration. Nursing notes and medical records reviewed. Differential considerations included PE, dissection, ACS, pneumonia, URI LRI, vertebral compressionfracture, bulging disc, radiculopathy/myelopathy Initial medical management includes [place] Initial workup includes CBC, CMP, troponin, dimer, EKG Other workup considerations included chest x-ray versus CTA versus CT of the thoracic spine -hold off on ordering imaging until D-dimer resulted. After dimer resulted normal, obtained a CT of the thoracic spine. Patient has had multiple chest x-rays recently, none of which showed consolidative process or widening of the mediastinum to suggest underlying aortic dissection or aneurysm. Dimer is similarly normal, so a low index of suspicion for that at this time. Upon reassessment patient remains nontoxic. No acute distress. Ambulating to and from bathroom. Is reporting some interval improvement of his pain after medication administration. Repeat examination with intact neurovascular status. Lab workup results CBC without leukocytosis or acute anemia. CMP without fluid electrolyte abnormality, CHAD, or transaminitis. Initial troponin less than 3. 2- hour troponin 3. D-dimer normal. EKG sinus rhythm sinus rhythm nonischemic with rate of 53. No evidence of STEMI. Imaging results per radiology: CT Mild degenerative changes. No fracture or dislocation. No back soft tissue abnormality. IMPRESSION: No acute findings. I completed a structured, evidence-based clinical evaluation to screen for acute non-traumatic spinal emergencies. The patient has a normal detailed neurologic exam and a low red flag score. Patient denies any history of new numbness, weakness, incontinence of bowel or bladder, constipation, saddleanesthesia or paresthesias. I estimate there is LOW risk for ABDOMINAL AORTIC ANEURYSM, CAUDA EQUINA SYNDROME, EPIDURAL MASS LESION, OR CORD COMPRESSION. I have discussed with the patient my clinical impression and the result of an evidence-based clinical evaluation to screen for spinal epidural abscess and other spinal emergencies, as well as the risk of further testing and hospitalization. The evidence shows that the risk for an acute spinal emergency is less than 1%. Although the risk of an acute spinal emergency has not been completely eliminated, the risks of further testing likely exceed any potential benefit, and the patient agrees with not pursuing further emergent evaluation for causes of back pain at this time. In brief, this is a 69-year-old gentleman who presented to the emergency department for evaluation of chronic ongoing back pain. Patient with longstanding history of back pain and has been seen multiple times for this. Follows with an orthopedic provider, and is supposed to have a bone scan performed on 01/19 to further evaluate this. Presents today reporting pain at between her shoulder blades, generally across the thoracic region. No direct injury or trauma to the area, but does state that he was out shopping this weekend, and pushing the grocery cart really seem to exacerbate his symptoms. C urrently only taking meloxicam. Workup obtained, as well as D-dimer to evaluate for possible pulmonary embolism versus acute aorticprocess. Troponins negative, dimer is negative, and EKG is nonischemic. CT of the thoracic spine was obtained which does not show any evidence of acute injury or other abnormalities. Discussed with patient that this is likely an exacerbation of his ongoing, chronic pain. Recommended continued management with ibuprofen and Tylenol, but will also send with a prescription for lidocaine patches, Medrol Dosepak, and Robaxin. Will plan to have him follow-up very closely with his primary care provider, and complete his bone scan on 01/19. Very strict ER return precautions were discussed, patient was comfortable and agreeable plans for discharge. Discharged in stable addition with normal vital signs. FINAL IMPRESSION 1. Chronic midline thoracic back pain DISPOSITION Discharge 01/04/2025 02:22:09 PM Shared decision making preformed. PATIENT REFERRED TO: Anthony Chamorro MD [address], [address] [facility] [address] Schedule an appointment as soon as possible for a visit [facility] [address] [id number] As needed, If symptoms worsen DISCHARGE MEDICATIONS: Discharge Medication List as of 01/04/2025 2:31 PM START taking these medications Details ibuprofen 600 MG tablet Take 1 tablet (600 mg) by mouth every 6 hours as needed for mild pain (1-3)for up to 7 days., Starting 01/04/2025, Until 01/11/2025 at 2359, Normal Lidocaine 4 % patch Place 1 patch on the skin daily for 10 days., Starting 01/04/2025, Until Sun01/14/2025, Normal methocarbamol (Robaxin) 500 MG tablet Take 1 tablet (500 mg) by mouth 2 times daily for 10 days., Starting 01/04/2025, Until Sun01/14/2025, Normal methylPREDNISolone (Medrol Dospak) 4 MG tablets Follow schedule on package instructions, Normal !! acetaminophen (Tylenol) 500 MG tablet Take 2 tablets (1,000 mg) by mouth every 8 hours as neededfor mild pain (1-3) for up to 7 days., Starting 01/04/2025, Until 01/11/2025 at 2359, Print !! - Potential duplicate medications found. Please discuss with provider. (Comment: Please note this report has been produced using speech recognition software and may contain errors related to that system including errors in grammar, punctuation, and spelling, as well as words and phrases that may be inappropriate. If there are any questions or concerns please feel freeto contact the dictating provider for clarification.) Fabiola Brito PA-C (electronically signed) Emergency Medicine Provider [1] Past Medical History: Diagnosis Date Acute midline low back pain without sciatica 04/07/2024 Arthritis Chronic back pain Chronic pain Degenerative joint disease of right hip Hypertension Muscle spasm 02/13/2024 Rib pain on right side 08/15/2024 Upper back pain 02/13/2024 Viral URI with cough 08/15/2024 Weakness of both lower extremities 04/07/2024 [2] Past Surgical History: Procedure Laterality Date BACK SURGERY 05/26/2024 CARPAL TUNNEL RELEASE Right 20 years ago COLONOSCOPY COLONOSCOPY TOTAL HIP ARTHROPLASTY Right 02/28/2022 RIGHT TOTAL HIP ARTHROPLASTY WITH DIRECT ANDTERIOR APPROACH [3] Family History Problem Relation Name Age of Onset Emphysema Mother Cancer Father [4] Social History Socioeconomic History Marital status: Tobacco Use Smoking status: Never Smokeless tobacco: Former Quit date: 12/2023 Vaping Use Vaping status: Never Used Substance and Sexual Activity Alcohol use: Not Currently Alcohol/week: 2.0 standard drinks of alcohol Types: 2 Standard drinks or equivalent per week Comment: Very occasional Drug use: No Social History Narrative Lives at home with - of 30 years Rebekah - 1 boy son previous-partner. 1 child from previous partner son- lives in [place] (somewhat estranged). 8 grandkids and 1 great. 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 Rebekah at home- good health- fibromylgia. Social Drivers of Health Financial Resource Strain: Low Risk (12/11/2024) Overall Financial Resource Strain (CARDIA) Difficulty of Paying Living Expenses: Not very hard Food Insecurity: No Food Insecurity (12/11/2024) Hunger Vital Sign Worried About Running Out of Food in the Last Year: Never true Ran Out of Food in the Last Year: Never true Transportation Needs: No Transportation Needs (12/11/2024) PRAPARE - Transportation Lack of Transportation (Medical): No Lack of Transportation (Non-Medical): No Physical Activity: Sufficiently Active (12/11/2024) Exercise Vital Sign Days of Exercise per Week: 7 days Minutes of Exercise per Session: 150+ min Stress: No Stress Concern Present (12/11/2024) [employer] - Occupational Stress Questionnaire Feeling of Stress : Not at all Social Connections: Moderately Isolated (12/11/2024) Social Connection and Isolation Panel [NHANES] Frequency of Communication with Friends and Family: More than three times a week Frequency of Social Gatherings with Friends and Family: Three times a week Attends Zoroastrian Services: Never Active Member of Clubs or Organizations: No Attends Club or Organization Meetings: Never Marital Status: Intimate Partner Violence: Not At Risk (12/11/2024) Humiliation, Afraid, Rape, and Kick questionnaire Fear of Current or Ex-Partner: No Emotionally Abused: No Physically Abused: No Sexually Abused: No Housing Stability: Low Risk (12/11/2024) Housing Stability Vital Sign Unable to Pay for Housing in the Last Year: No Number of Times Moved in the Last Year: 0 Homeless in the Last Year: No Fabiola Brito PA-C 01/04/251913 [id number] Telephone encounter Note* Telephone Encounter - Sarah Coleman - 12/30/2024 2:07 PM EDT Images from the original note were not included. Prescription Request: rosuvastatin (Crestor) 5 MG tablet Last medication check: 01/16/24 Last physical exam: 12/11/24 Next scheduled appointment: 07/13/25 Last date of refill on this medication 12/12/24 ( qty 90 refill 1) [id number] Miscellaneous Notes* Telephone Encounter - Sarah Coleman - 12/30/2024 2:07 PM EDT Images from the original note were not included. Prescription Request: rosuvastatin (Crestor) 5 MG tablet Last medication check: 01/16/24 Last physical exam: 12/11/24 Next scheduled appointment: 07/13/25 Last date of refill on this medication 12/12/24 ( qty 90 refill 1) documented in this [facility]05-23-2025 Telephone encounter Note* Telephone Encounter - RONAN [place] CNP - 12/12/2024 12:26 PM EDT Rx sent. Follow [facility] as scheduled. [id number] Miscellaneous Notes* Telephone Encounter - RONAN [place] CNP - 12/12/2024 12:26 PM EDT Rx sent. Follow up as scheduled. documented in this [facility]05-14-2025 History of Present illness Narrative* RONAN [place] CNP - 12/03/2024 8:00 AM EDT Images from the original note were not included. 12/03/2024 Cortney Acosta (: 1955) is a 69 y.o. male , Established patient, here for evaluation of the following chief complaint(s): ER Follow-up (Pt has high blood pressure, Sunday ED visit, pressure and pain in left arm ) I obtained verbal consent from the patient and/or patient s guardian to use ambient listening technology during this encounter before the ambient technology was engaged. Assessment/Plan 1. Chest pain, unspecified type - resolved - Recent ER visit (11/30/2024) for chest tightness and left arm pain - Cardiac workup negative (normal troponins and EKG) - Declines stress test for further evaluation at this time. Discussed signs and symptoms warrantingfollow up in the office- verbalized understanding. 2. Primary hypertension - losartan (Cozaar) 100 MG tablet; Take 0.5 tablets (50 mg) by mouth Nightly., Starting Sun12/03/2024, No Print - chronic stable - Patient reports dizziness with new blood pressure medication (losartan) - Advised to take medication at bedtime - Adjust dosage to 50mg (half tablet) of losartan at bedtime - Monitor blood pressure, ensure top number stays less than 140 and bottom number less than 90 - Follow up with Nicolasa in a week for physical and medication review 3. Hypercholesterolemia - Not currently on a lipid-lowering agent. Will plan on rechecking cholesterol levels on 12/11/2024 as scheduled and provide recommendations accordingly. 4. Anxiety - busPIRone (Buspar) 7.5 MG tablet; Take 1 tablet (7.5 mg) by mouth 2 times daily., Starting Sun12/03/2024, Normal - Chronic, not well controlled. - Prescribed Buspar 7.5mg PO BID - Advised it may take 2-4 weeks to see full benefit - Follow up with Nicolasa to assess efficacy - Information provided in AVS on new medication. I performed the above service AI scribed on my behalf, and I have reviewed and confirmed the accuracy and completeness of the medical documentation. Follow up in 8 days (on 12/11/2024) for Next scheduled follow-up. Subjective History of Present Illness Cortney Acosta, a 69-year-old male, presents for ER follow-up and concerns of dizziness with his new blood pressure medication (Losartan). He reports feeling dizzy within two to three hours of taking themedication, particularly when moving his head quickly. He has not taken the medication since yesterday. Cortney mentions his blood pressure readings were 121/74 and 127/77. Cortney also discusses a recent ER visit on November 30 for chest tightness and left arm pain. States he rode 40 miles on his bicycle the day before. Workup in the ER was unremarkable. Normal troponin levels and EKG. It was recommended he start on a daily low-dose aspirin and get an outpatient stress test ordered, however, he does not want to pursue the stress test at this time. Feels his symptoms weremore musculoskeletal in nature and not related to his heart. Has hypercholesterolemia but has not been taking his rosuvastatin stating he is made some lifestyle changes (eating less cheese) and does not want to take the medication. Is scheduled for a physical and fasting blood work on 12/11/2024. Cortney expresses that he is starting to retire and finding it stressful, contrary to expectations. Hementions difficulty adjusting to having everything done around the house and limited activities. States all of these changes have contributed to his dieting and is requesting to start on a daily medication to better help manage this. Has never been on a daily maintenance medication before. Denies feeling down depressed or was. Review of Systems Respiratory: Negative for chest tightness and shortness of breath. Cardiovascular: Negative for chest pain. Psychiatric/Behavioral: Negative for dysphoric mood. The patient is nervous/anxious. Objective Vitals: 12/03/24 0746 BP: 128/85 BP Location: Left arm Patient Position: Sitting BP Cuff Size: Adult Pulse: 66 SpO2: 97% Weight: 148 lb 12.8 oz (67.5 kg) Body mass index is 24.76 kg/m . Last 3 PHQ-2 Scores 12/03/2024 0749 11/28/2024 1105 Patient Health Questionnaire-2 Score: 0 0 Physical Exam Constitutional: General: He is not in acute distress. Appearance: He is not ill-appearing or diaphoretic. Neck: Vascular: No carotid bruit. Cardiovascular: Rate and Rhythm: Normal rate and regular rhythm. Pulses: Normal pulses. Heart sounds: Normal heart sounds. No murmur heard. No friction rub. Pulmonary: Effort: Pulmonary effort is normal. Breath sounds: Normal breath sounds. No wheezing, rhonchi or rales. Abdominal: General: Bowel sounds are normal. Palpations: Abdomen is soft. There is no mass. Tenderness: There is no abdominal tenderness. There is no guarding or rebound. Musculoskeletal: Cervical back: Neck supple. Skin: General: Skin is warm and dry. Coloration: Skin is not pale. Findings: No erythema or rash. Neurological: Mental Status: He is alert and oriented to person, place, and time. Psychiatric: Mood and Affect: Mood normal. Behavior: Behavior normal. Thought Content: Thought content normal. Judgment: Judgment normal. Data Reviewed Component Ref Range & Units 3 d ago 2h Troponin HS (Serial 2nd Troponin) <=35 ng/L <3 Comment: 2h troponin (2nd troponin) samples collected between 1h 40 min and 2h and 20 min of the baseline collection time can be utilized to interpret delta troponins as per [facility] algorithms. Samplescollected outside this timeframe need to be interpreted clinically. Delta value was unable to be calculated as both baseline and serial troponin tests were below the level of quantitation. As both baseline and 2h troponin values are below the level of quantitation, acute cardiac injury is unlikely. Component Ref Range & Units 3 d ago Troponin HS Serial Baseline <=35 ng/L <3 Comment: In individuals presenting with symptoms > 2h, a baseline troponin <= 5 ng/L suggestsacute cardiac injury is unlikely and further serial testing is generally not indicated. IMPRESSION: Sinus rhythm EKG per my interpretation shows normal sinus rhythm at a rate of 57 with a normal axis. There was no acute ST elevation or ST depression. Intervals are within normal limits otherwise. There were no significant changes compared to prior EKG on file. Electronically Signed On 11-30-2024 12:54:44 EDT by Jayant Ng ECG Measurements QRSD Interval: 90 ms QT Interval: 399 ms QTC Interval: 390 ms Heart Rate: 57 bpm P [place]: 72 degrees QRS [place]: 26 degrees T Wave [place]: 43 degrees Signed at 1254 EDT An electronic signature was used to authenticate this note. RONAN Green CNP 12/03/2024 8:14 AM documented in this [facility]05-11-2025 Emergency department Note* Brittany Gil RN - 11/30/2024 3:39 PM EDT Discharge teaching completed. Pt verbalizes understanding of times to return to the ED, and follow up care discussed. Pt is stable and ambulatory upon discharge. Pt is a/o x 4; breathing is even and unlabored on room air. No distress noted. Pt leaves ED with all belongings. [id number] NoteDischarge teaching completed. Pt verbalizes understanding of times to return to the ED, and follow up care discussed. Pt is stable and ambulatory upon discharge. Pt is a/o x 4; breathing is even and unlabored on room air. No distress noted. Pt leaves ED with all belongings.[facility]05-11-2025 Emergency department Note* Brittany Gil RN - 11/30/2024 3:39 PM EDT Discharge teaching completed. Pt verbalizes understanding of times to return to the ED, and follow up care discussed. Pt is stable and ambulatory upon discharge. Pt is a/o x 4; breathing is even and unlabored on room air. No distress noted. Pt leaves ED with all belongings. * Jayant Ng MD - 11/30/2024 12:35 PM EDT Images from the original note were not included. EMERGENCY DEPARTMENT ENCOUNTER Pt Name: Cortney Acosta Birthdate 1955 Date of evaluation: 11/30/2024 ED Provider: Jayant Ng MD CHIEF COMPLAINT Chief Complaint Patient presents with Arm Pain Left arm pain for a couple days Chest Pain Left sided chest pain for a couple days HISTORY OF PRESENT ILLNESS (Location/Symptom, Timing/Onset, Context/Setting, Quality, Duration, Modifying Factors, Severity) Note limiting factors. I wore appropriate PPE for the entirety of this encounter. HPI Cortney Acosta is a 69 y.o. who presents to the emergency department with chief complaint of tightness in his chest and left arm. The patient said he has had this on and off for the past few days. He says it comes on at random. It lasts only about a minute and then goes away. He is not actively having symptoms currently. He denies any trouble breathing. He denies any nausea or dizziness or diaphoresis. He is unaware of any cardiac history. He has never had a heart attack. No fevers or chills today although he had some chills yesterday. He has a slight headache. Vision normal. No cough or URI symptoms. No abdominal pain, vomiting or diarrhea. No urinary complaints. No new pain or swelling in his legs. No localizing numbness or weakness. No other associated complaints. Denies smoke, alcohol or drug use. He is unaware of any family history of cardiac disease. Nursing Notes were reviewed. Limitations to history: None Outside historians: Significant other REVIEW OF SYSTEMS Review of Systems Constitutional: Negative for chills and fever. HENT: Negative for sore throat. Eyes: Negative for visual disturbance. Respiratory: Negative for cough and shortness of breath. Cardiovascular: Positive for chest pain. Negative for leg swelling. Gastrointestinal: Negative for abdominal pain and vomiting. Genitourinary: Negative for dysuria. Musculoskeletal: Positive for myalgias. Negative for arthralgias and back pain. Skin: Negative for color change and rash. Neurological: Positive for headaches. Negative for weakness and numbness. All other systems reviewed and are negative. Pertinent positives and negatives as per HPI. PAST MEDICAL HISTORY Past Medical History: Diagnosis Date Arthritis Chronic back pain Chronic pain Degenerative joint disease of right hip Hypertension SURGICAL HISTORY Past Surgical History: Procedure Laterality Date BACK SURGERY CARPAL TUNNEL RELEASE Right 20 years ago COLONOSCOPY COLONOSCOPY TOTAL HIP ARTHROPLASTY Right 02/28/2022 RIGHT TOTAL HIP ARTHROPLASTY WITH DIRECT ANDTERIOR APPROACH CURRENT MEDICATIONS Previous Medications ACETAMINOPHEN (TYLENOL) 500 MG TABLET Take 1,000 mg by mouth every 8 hours as needed for mild pain (1-3). ALBUTEROL 108 (90 BASE) MCG/ACT INHALER Inhale 2 puffs every 4 hours as needed for wheezing. HYDROXYZINE HCL (ATARAX) 25 MG TABLET Take 1 tablet (25 mg) by mouth every 8 hours as needed for anxiety. LOSARTAN (COZAAR) 100 MG TABLET Take 1 tablet (100 mg) by mouth daily. MELOXICAM (MOBIC) 15 MG TABLET TAKE 1 TABLET BY MOUTH EVERY MORNING WITH FOOD TO REDUCE SWELLING. DO NOT TAKE WITH OTHER NSAIDS (IBUPROFEN, ADVIL, MOTRIN, ALEVE,OR NAPROXEN) ROSUVASTATIN (CRESTOR) 5 MG TABLET TAKE 1 TABLET BY MOUTH DAILY ALLERGIES Penicillins FAMILY HISTORY Family History Problem Relation Name Age of Onset Emphysema Mother Cancer Father SOCIAL HISTORY Social History Socioeconomic History Marital status: Tobacco Use Smoking status: Never Smokeless tobacco: Former Quit date: 12/2023 Vaping Use Vaping status: Never Used Substance and Sexual Activity Alcohol use: Not Currently Alcohol/week: 2.0 standard drinks of alcohol Types: 2 Standard drinks or equivalent per week Comment: Very occasional Drug use: No Social History Narrative Lives at home with - of 30 years Rebekah - 1 boy son previous-partner. 1 child from previous partner son- lives in [place] (somewhat estranged). 8 grandkids and 1 great. 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 Rebekah at home- good health- fibromylgia. Social Drivers of Health Financial Resource Strain: Low Risk (01/16/2024) Overall Financial Resource Strain (CARDIA) Difficulty of Paying Living Expenses: Not hard at all Food Insecurity: No Food Insecurity (01/16/2024) Hunger Vital Sign Worried About Running Out of Food in the Last Year: Never true Ran Out of Food in the Last Year: Never true Transportation Needs: No Transportation Needs (01/16/2024) PRAPARE - Transportation Lack of Transportation (Medical): No Lack of Transportation (Non-Medical): No Physical Activity: Sufficiently Active (01/16/2024) Exercise Vital Sign Days of Exercise per Week: 3 days Minutes of Exercise per Session: 150+ min Stress: No Stress Concern Present (01/16/2024) [employer] - Occupational Stress Questionnaire Feeling of Stress : Not at all Social Connections: Socially Isolated (01/16/2024) Social Connection and Isolation Panel [NHANES] Frequency of Communication with Friends and Family: Twice a week Frequency of Social Gatherings with Friends and Family: Never Attends Zoroastrian Services: Never Active Member of Clubs or Organizations: No Attends Club or Organization Meetings: Never Marital Status: Intimate Partner Violence: Not At Risk (01/16/2024) Humiliation, Afraid, Rape, and Kick questionnaire Fear of Current or Ex-Partner: No Emotionally Abused: No Physically Abused: No Sexually Abused: No Housing Stability: Low Risk (01/16/2024) Housing Stability Vital Sign Unable to Pay for Housing in the Last Year: No Number of Times Moved in the Last Year: 1 Homeless in the Last Year: No SCREENINGS HEART Score History: Slightly suspicious ECG: Normal Age: 65+ Risk Factors: No known risk factors Troponin: Less than or equal to normal limit HEART Score: 2 PHYSICAL EXAM ED Triage Vitals [11/30/24 1250] Temp Heart Rate Resp BP 36.4 C (97.6 F) 65 16 (!) 149/89 SpO2 Temp Source Heart Rate Source Patient Position 100 % Oral -- Lying BP Location FiO2 (%) Right arm -- Physical Exam Vitals and nursing note reviewed. Exam conducted with a quality review specialist present. Constitutional: General: He is not in acute distress. Appearance: Normal appearance. He is well-developed and normal weight. He is not toxic-appearing. HENT: Head: Normocephalic and atraumatic. Right Ear: External ear normal. Left Ear: External ear normal. Nose: Nose normal. Mouth/Throat: Mouth: Mucous membranes are moist. Pharynx: Oropharynx is clear. Eyes: Extraocular Movements: Extraocular movements intact. Conjunctiva/sclera: Conjunctivae normal. Pupils: Pupils are equal, round, and reactive to light. Cardiovascular: Rate and Rhythm: Normal rate and regular rhythm. Heart sounds: Normal heart sounds. No murmur heard. Pulmonary: Effort: Pulmonary effort is normal. No respiratory distress. Breath sounds: Normal breath sounds. No wheezing, rhonchi or rales. Chest: Chest wall: No tenderness. Abdominal: General: Bowel sounds are normal. Palpations: Abdomen is soft. Tenderness: There is no abdominal tenderness. There is no guarding or rebound. Musculoskeletal: General: Tenderness present. No swelling or deformity. Normal range of motion. Cervical back: Normal range of motion and neck supple. Comments: There is 1 area of point tenderness of the left anterior shoulder. There is no swelling or deformity. The left clavicle is nontender. He is neurovascular tact in the left upper extremity. Range of motion is normal. There is no evidence of DVT or compartment syndrome of the left upper extremity. There is no overlying warmth or erythema over the left shoulder. Skin: General: Skin is warm and dry. Neurological: General: No focal deficit present. Mental Status: He is alert and oriented to person, place, and time. GCS: GCS eye subscore is 4. GCS verbal subscore is 5. GCS motor subscore is 6. Cranial Nerves: Cranial nerves 2-12 are intact. Sensory: Sensation is intact. Motor: Motor function is intact. Coordination: Coordination is intact. Psychiatric: Mood and Affect: Mood normal. DIAGNOSTIC RESULTS Procedures/EKG: EKG per my interpretation shows normal sinus rhythm at a rate of 57 with a normal axis. There was no acute ST elevation or ST depression. Intervals are within normal limits otherwise. There were no significant changes compared to prior EKG on file. EKG was reviewed by myself. [facility]Y (Per Emergency Physician): Chest x-ray interpreted by me shows no obvious evidence of infiltrate or failure. Interpretation per the Radiologist below, if available at the time of this note: XR chest 1 view Final Result No acute radiographic abnormality. Report Dictated on Electronically Signed By: Dia Fritz DO Electronically Signed Date/Time: 11/30/2024 1:30 PM EDT ED BEDSIDE ULTRASOUND: Performed by ED Physician - none LABS: Labs Reviewed CBC WITH AUTO DIFFERENTIAL - Abnormal Result Value Auto WBC 7.9 RBC 4.79 Hemoglobin 14.7 Hematocrit 42.9 MCV 89.6 MCH 30.7 MCHC 34.3 RDW 13.1 Platelets 347 MPV 8.9 (*) nRBC 0.0 Neutrophils Relative 74.1 Lymphocytes Relative 18.3 Monocytes Relative 6.2 Eosinophils Relative 0.5 Basophils Relative 0.5 Immature Grans % 0.4 Neutrophils Absolute 5.9 Lymphocytes Absolute 1.5 Monocytes Absolute 0.5 Eosinophils Absolute 0.0 Basophils Absolute 0.0 Immature Grans Absolute 0.0 HIGH SENSITIVITY TROPONIN, SERIAL BASELINE - Normal Troponin HS Serial Baseline <3 COMPREHENSIVE METABOLIC PANEL - Normal SODIUM 139 POTASSIUM 4.3 CHLORIDE 103 CARBON DIOXIDE 24 ANION GAP 12 UREA NITROGEN 19 CREATININE 1.01 GLUCOSE 100 CALCIUM 9.4 AST (SGOT) 19 ALT 10 ALKALINE PHOSPHATASE 67 ALBUMIN 4.0 BILIRUBIN, TOTAL 0.8 TOTAL PROTEIN 7.5 eGFR 81.5 MAGNESIUM - Normal MAGNESIUM 1.9 Narrative: Higher values can be expected in females during menses. HIGH SENSITIVITY TROPONIN, SERIAL, SECOND TEST - Normal 2h Troponin HS (Serial 2nd Troponin) <3 All other labs were within normal range or not returned as of this dictation. EMERGENCY DEPARTMENT COURSE and DIFFERENTIAL DIAGNOSIS/MDM: Vitals: Vitals: 11/30/24 1250 11/30/24 1411 11/30/24 1513 BP: (!) 149/89 122/82 138/85 BP Location: Right arm Left arm Left arm Patient Position: Lying Lying Lying Pulse: 65 55 54 Resp: 16 16 16 Temp: 36.4 C (97.6 F) TempSrc: Oral SpO2: 100% 97% 98% Weight: 67.1 kg (148 lb) Height: 1.651 m (5' 5") Diagnoses as of 11/30/24 1530 Chest pain, unspecified type The patient presented with chief complaint of chest pain. The differential diagnosis associated with this patient's presentation includes musculoskeletal shoulder pain, ACS, pleurisy, less likely pneumonia, unlikely CHF, unlikely PE or dissection, unlikely sepsis or bacteremia. Our workup consisted of ordering/reviewing: Cardiac workup including EKG, chest x-ray and lab work. Patient is in agreement with this plan. Medications aspirin chewable tablet 324 mg (324 mg Oral Given 11/30/24 1308) REVAL: The patient presents with chest pain even though he is currently asymptomatic. I did order cardiac workup. He was given baby aspirin. I reassured him and told him that his EKG when he arrived was unremarkable. His chest x-ray as well shows nothing acute. His initial lab work including CBC, CMP and initial troponin were essentially normal. He remains comfortable here and vital signs are unremarkabl e. Repeat troponin was negative and unchanged. The patient remained stable and comfortable here. I told him that his workup is unremarkable. The patient has a low to intermediate heart score. I do not believe that his symptoms are cardiac. I believe he is safe for discharge. I did tell him to start1 baby aspirin daily tomorrow. I told him he needs to call his primary physician because they will n eed to schedule him for an outpatient stress test. If anything changes or gets worse, he needs to go directly to the hospital. Patient understands the plan. MEDICAL DECISION MAKING: I considered, but did not perform, additional testing such CT Angiogram, as well as admission or transfer to a higher level of care. I utilized an evidence-based risk rating tool (CMT) along with my training and experience to weigh the risk of discharge against the risks of further testing, imaging, or hospitalization. At this time, I estimate the risks of additional testing, imaging, or hospitalization to be equal to or greaterthan the risk of discharge(in the case of discharge home). The patient's HEART Score is <4. In rare cases, I give patients with HEART Score of 4 the optionof discharge, but only when they meet criteria for "Low 4," meaning that HST was used, and the 4 isnot from a highly suspicious story, highly suspicious EKG, or positive cardiac enzymes. In these selected cases, the risk of a "Low 4" is still most likely lower than the risk of admission and further testing/imaging. [id number] SHARED DECISION MAKING: I discussed my risk assessment with the patient. The patient understands and consents to the risk of disposition/plan, as well as the risk of uncertainty in estimating outcomes. [id number] CRITICAL CARE TIME None CONSULTS: None PROCEDURES: Unless otherwise noted below, none FINAL IMPRESSION 1. Chest pain, unspecified type DISPOSITION Discharge 11/30/2024 03:29:51 PM PATIENT REFERRED TO: Anthony Chamorro MD [address] [place] [address], [address] [facility] [id number] Schedule an appointment as soon as possible for a visit DISCHARGE MEDICATIONS: New Prescriptions No medications on file (Comment: Please note this report has been produced using speech recognition software and may contain errors related to that system including errors in grammar, punctuation, and spelling, as well as words and phrases that may be inappropriate. If there are any questions or concerns please feel freeto contact the dictating provider for clarification.) Jayant Ng MD (electronically signed) Emergency Medicine Provider Jayant Ng MD 11/30/24 1531 documented in this [facility]05-11-2025 Physician Emergency department Note* Jayant Ng MD - 11/30/2024 12:35 PM EDT Images from the original note were not included. EMERGENCY DEPARTMENT ENCOUNTER Pt Name: Cortney Acosta Birthdate 1955 Date of evaluation: 11/30/2024 ED Provider: Jayant Ng MD CHIEF COMPLAINT Chief Complaint Patient presents with Arm Pain Left arm pain for a couple days Chest Pain Left sided chest pain for a couple days HISTORY OF PRESENT ILLNESS (Location/Symptom, Timing/Onset, Context/Setting, Quality, Duration, Modifying Factors, Severity) Note limiting factors. I wore appropriate PPE for the entirety of this encounter. HPI Cortney Acosta is a 69 y.o. who presents to the emergency department with chief complaint of tightness in his chest and left arm. The patient said he has had this on and off for the past few days. He says it comes on at random. It lasts only about a minute and then goes away. He is not actively having symptoms currently. He denies any trouble breathing. He denies any nausea or dizziness or diaphoresis. He is unaware of any cardiac history. He has never had a heart attack. No fevers or chills today although he had some chills yesterday. He has a slight headache. Vision normal. No cough or URI symptoms. No abdominal pain, vomiting or diarrhea. No urinary complaints. No new pain or swelling in his legs. No localizing numbness or weakness. No other associated complaints. Denies smoke, alcohol or drug use. He is unaware of any family history of cardiac disease. Nursing Notes were reviewed. Limitations to history: None Outside historians: Significant other REVIEW OF SYSTEMS Review of Systems Constitutional: Negative for chills and fever. HENT: Negative for sore throat. Eyes: Negative for visual disturbance. Respiratory: Negative for cough and shortness of breath. Cardiovascular: Positive for chest pain. Negative for leg swelling. Gastrointestinal: Negative for abdominal pain and vomiting. Genitourinary: Negative for dysuria. Musculoskeletal: Positive for myalgias. Negative for arthralgias and back pain. Skin: Negative for color change and rash. Neurological: Positive for headaches. Negative for weakness and numbness. All other systems reviewed and are negative. Pertinent positives and negatives as per HPI. PAST MEDICAL HISTORY Past Medical History: Diagnosis Date Arthritis Chronic back pain Chronic pain Degenerative joint disease of right hip Hypertension SURGICAL HISTORY Past Surgical History: Procedure Laterality Date BACK SURGERY CARPAL TUNNEL RELEASE Right 20 years ago COLONOSCOPY COLONOSCOPY TOTAL HIP ARTHROPLASTY Right 02/28/2022 RIGHT TOTAL HIP ARTHROPLASTY WITH DIRECT ANDTERIOR APPROACH CURRENT MEDICATIONS Previous Medications ACETAMINOPHEN (TYLENOL) 500 MG TABLET Take 1,000 mg by mouth every 8 hours as needed for mild pain (1-3). ALBUTEROL 108 (90 BASE) MCG/ACT INHALER Inhale 2 puffs every 4 hours as needed for wheezing. HYDROXYZINE HCL (ATARAX) 25 MG TABLET Take 1 tablet (25 mg) by mouth every 8 hours as needed for anxiety. LOSARTAN (COZAAR) 100 MG TABLET Take 1 tablet (100 mg) by mouth daily. MELOXICAM (MOBIC) 15 MG TABLET TAKE 1 TABLET BY MOUTH EVERY MORNING WITH FOOD TO REDUCE SWELLING. DO NOT TAKE WITH OTHER NSAIDS (IBUPROFEN, ADVIL, MOTRIN, ALEVE,OR NAPROXEN) ROSUVASTATIN (CRESTOR) 5 MG TABLET TAKE 1 TABLET BY MOUTH DAILY ALLERGIES Penicillins FAMILY HISTORY Family History Problem Relation Name Age of Onset Emphysema Mother Cancer Father SOCIAL HISTORY Social History Socioeconomic History Marital status: Tobacco Use Smoking status: Never Smokeless tobacco: Former Quit date: 12/2023 Vaping Use Vaping status: Never Used Substance and Sexual Activity Alcohol use: Not Currently Alcohol/week: 2.0 standard drinks of alcohol Types: 2 Standard drinks or equivalent per week Comment: Very occasional Drug use: No Social History Narrative Lives at home with - of 30 years Rebekah - 1 boy son previous-partner. 1 child from previous partner son- lives in [place] (somewhat estranged). 8 grandkids and 1 great. 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 Rebekah at home- good health- fibromylgia. Social Drivers of Health Financial Resource Strain: Low Risk (01/16/2024) Overall Financial Resource Strain (CARDIA) Difficulty of Paying Living Expenses: Not hard at all Food Insecurity: No Food Insecurity (01/16/2024) Hunger Vital Sign Worried About Running Out of Food in the Last Year: Never true Ran Out of Food in the Last Year: Never true Transportation Needs: No Transportation Needs (01/16/2024) PRAPARE - Transportation Lack of Transportation (Medical): No Lack of Transportation (Non-Medical): No Physical Activity: Sufficiently Active (01/16/2024) Exercise Vital Sign Days of Exercise per Week: 3 days Minutes of Exercise per Session: 150+ min Stress: No Stress Concern Present (01/16/2024) [employer] - Occupational Stress Questionnaire Feeling of Stress : Not at all Social Connections: Socially Isolated (01/16/2024) Social Connection and Isolation Panel [NHANES] Frequency of Communication with Friends and Family: Twice a week Frequency of Social Gatherings with Friends and Family: Never Attends Zoroastrian Services: Never Active Member of Clubs or Organizations: No Attends Club or Organization Meetings: Never Marital Status: Intimate Partner Violence: Not At Risk (01/16/2024) Humiliation, Afraid, Rape, and Kick questionnaire Fear of Current or Ex-Partner: No Emotionally Abused: No Physically Abused: No Sexually Abused: No Housing Stability: Low Risk (01/16/2024) Housing Stability Vital Sign Unable to Pay for Housing in the Last Year: No Number of Times Moved in the Last Year: 1 Homeless in the Last Year: No SCREENINGS HEART Score History: Slightly suspicious ECG: Normal Age: 65+ Risk Factors: No known risk factors Troponin: Less than or equal to normal limit HEART Score: 2 PHYSICAL EXAM ED Triage Vitals [11/30/24 1250] Temp Heart Rate Resp BP 36.4 C (97.6 F) 65 16 (!) 149/89 SpO2 Temp Source Heart Rate Source Patient Position 100 % Oral -- Lying BP Location FiO2 (%) Right arm -- Physical Exam Vitals and nursing note reviewed. Exam conducted with a quality review specialist present. Constitutional: General: He is not in acute distress. Appearance: Normal appearance. He is well-developed and normal weight. He is not toxic-appearing. HENT: Head: Normocephalic and atraumatic. Right Ear: External ear normal. Left Ear: External ear normal. Nose: Nose normal. Mouth/Throat: Mouth: Mucous membranes are moist. Pharynx: Oropharynx is clear. Eyes: Extraocular Movements: Extraocular movements intact. Conjunctiva/sclera: Conjunctivae normal. Pupils: Pupils are equal, round, and reactive to light. Cardiovascular: Rate and Rhythm: Normal rate and regular rhythm. Heart sounds: Normal heart sounds. No murmur heard. Pulmonary: Effort: Pulmonary effort is normal. No respiratory distress. Breath sounds: Normal breath sounds. No wheezing, rhonchi or rales. Chest: Chest wall: No tenderness. Abdominal: General: Bowel sounds are normal. Palpations: Abdomen is soft. Tenderness: There is no abdominal tenderness. There is no guarding or rebound. Musculoskeletal: General: Tenderness present. No swelling or deformity. Normal range of motion. Cervical back: Normal range of motion and neck supple. Comments: There is 1 area of point tenderness of the left anterior shoulder. There is no swelling or deformity. The left clavicle is nontender. He is neurovascular tact in the left upper extremity. Range of motion is normal. There is no evidence of DVT or compartment syndrome of the left upper extremity. There is no overlying warmth or erythema over the left shoulder. Skin: General: Skin is warm and dry. Neurological: General: No focal deficit present. Mental Status: He is alert and oriented to person, place, and time. GCS: GCS eye subscore is 4. GCS verbal subscore is 5. GCS motor subscore is 6. Cranial Nerves: Cranial nerves 2-12 are intact. Sensory: Sensation is intact. Motor: Motor function is intact. Coordination: Coordination is intact. Psychiatric: Mood and Affect: Mood normal. DIAGNOSTIC RESULTS Procedures/EKG: EKG per my interpretation shows normal sinus rhythm at a rate of 57 with a normal axis. There was no acute ST elevation or ST depression. Intervals are within normal limits otherwise. There were no significant changes compared to prior EKG on file. EKG was reviewed by myself. Physician EKG interpretation can be found in [facility] RADIOLOGY (Per Emergency Physician): Chest x-ray interpreted by me shows no obvious evidence of infiltrate or failure. Interpretation per the Radiologist below, if available at the time of this note: XR chest 1 view Final Result No acute radiographic abnormality. Report Dictated on Electronically Signed By: Dia Fritz DO Electronically Signed Date/Time: 11/30/2024 1:30 PM EDT ED BEDSIDE ULTRASOUND: Performed by ED Physician - none LABS: Labs Reviewed CBC WITH AUTO DIFFERENTIAL - Abnormal Result Value Auto WBC 7.9 RBC 4.79 Hemoglobin 14.7 Hematocrit 42.9 MCV 89.6 MCH 30.7 MCHC 34.3 RDW 13.1 Platelets 347 MPV 8.9 (*) nRBC 0.0 Neutrophils Relative 74.1 Lymphocytes Relative 18.3 Monocytes Relative 6.2 Eosinophils Relative 0.5 Basophils Relative 0.5 Immature Grans % 0.4 Neutrophils Absolute 5.9 Lymphocytes Absolute 1.5 Monocytes Absolute 0.5 Eosinophils Absolute 0.0 Basophils Absolute 0.0 Immature Grans Absolute 0.0 HIGH SENSITIVITY TROPONIN, SERIAL BASELINE - Normal Troponin HS Serial Baseline <3 COMPREHENSIVE METABOLIC PANEL - Normal SODIUM 139 POTASSIUM 4.3 CHLORIDE 103 CARBON DIOXIDE 24 ANION GAP 12 UREA NITROGEN 19 CREATININE 1.01 GLUCOSE 100 CALCIUM 9.4 AST (SGOT) 19 ALT 10 ALKALINE PHOSPHATASE 67 ALBUMIN 4.0 BILIRUBIN, TOTAL 0.8 TOTAL PROTEIN 7.5 eGFR 81.5 MAGNESIUM - Normal MAGNESIUM 1.9 Narrative: Higher values can be expected in females during menses. HIGH SENSITIVITY TROPONIN, SERIAL, SECOND TEST - Normal 2h Troponin HS (Serial 2nd Troponin) <3 All other labs were within normal range or not returned as of this dictation. EMERGENCY DEPARTMENT COURSE and DIFFERENTIAL DIAGNOSIS/MDM: Vitals: Vitals: 11/30/24 1250 11/30/24 1411 11/30/24 1513 BP: (!) 149/89 122/82 138/85 BP Location: Right arm Left arm Left arm Patient Position: Lying Lying Lying Pulse: 65 55 54 Resp: 16 16 16 Temp: 36.4 C (97.6 F) TempSrc: Oral SpO2: 100% 97% 98% Weight: 67.1 kg (148 lb) Height: 1.651 m (5' 5") Diagnoses as of 11/30/24 1530 Chest pain, unspecified type The patient presented with chief complaint of chest pain. The differential diagnosis associated with this patient's presentation includes musculoskeletal shoulder pain, ACS, pleurisy, less likely pneumonia, unlikely CHF, unlikely PE or dissection, unlikely sepsis or bacteremia. Our workup consisted of ordering/reviewing: Cardiac workup including EKG, chest x-ray and lab work. Patient is in agreement with this plan. Medications aspirin chewable tablet 324 mg (324 mg Oral Given 11/30/24 1308) REVAL: The patient presents with chest pain even though he is currently asymptomatic. I did order cardiac workup. He was given baby aspirin. I reassured him and told him that his EKG when he arrived was unremarkable. His chest x-ray as well shows nothing acute. His initial lab work including CBC, CMP and initial troponin were essentially normal. He remains comfortable here and vital signs are unremarkabl e. Repeat troponin was negative and unchanged. The patient remained stable and comfortable here. I told him that his workup is unremarkable. The patient has a low to intermediate heart score. I do not believe that his symptoms are cardiac. I believe he is safe for discharge. I did tell him to start1 baby aspirin daily tomorrow. I told him he needs to call his primary physician because they will n eed to schedule him for an outpatient stress test. If anything changes or gets worse, he needs to go directly to the hospital. Patient understands the plan. MEDICAL DECISION MAKING: I considered, but did not perform, additional testing such CT Angiogram, as well as admission or transfer to a higher level of care. I utilized an evidence-based risk rating tool (CMT) along with my training and experience to weigh the risk of discharge against the risks of further testing, imaging, or hospitalization. At this time, I estimate the risks of additional testing, imaging, or hospitalization to be equal to or greaterthan the risk of discharge(in the case of discharge home). The patient's HEART Score is <4. In rare cases, I give patients with HEART Score of 4 the optionof discharge, but only when they meet criteria for "Low 4," meaning that HST was used, and the 4 isnot from a highly suspicious story, highly suspicious EKG, or positive cardiac enzymes. In these selected cases, the risk of a "Low 4" is still most likely lower than the risk of admission and further testing/imaging. [id number] SHARED DECISION MAKING: I discussed my risk assessment with the patient. The patient understands and consents to the risk of disposition/plan, as well as the risk of uncertainty in estimating outcomes. [id number] CRITICAL CARE TIME None CONSULTS: None PROCEDURES: Unless otherwise noted below, none FINAL IMPRESSION 1. Chest pain, unspecified type DISPOSITION Discharge 11/30/2024 03:29:51 PM PATIENT REFERRED TO: Anthony Chamorro MD [address] [place] [address], [address] [place] [id number] Schedule an appointment as soon as possible for a visit DISCHARGE MEDICATIONS: New Prescriptions No medications on file (Comment: Please note this report has been produced using speech recognition software and may contain errors related to that system including errors in grammar, punctuation, and spelling, as well as words and phrases that may be inappropriate. If there are any questions or concerns please feel freeto contact the dictating provider for clarification.) Jayant Ng MD (electronically signed) Emergency Medicine Provider Jayant Ng MD 11/30/24 1531 [id number] History of Present illness Narrative* Kaitlin Torrez - 11/28/2024 9:30 AM EDT Patient came in the office for a Nurse Visit Blood Pressure check today. Identified by name and date of . The patient sat for 10 minutes prior to having their Blood Pressure taken. He Stated he was at his back doctor at [facility] and they advised him to come over to his PCP to check his blood pressure. He is NOT taking his losartan, he stated someone told him to stop it but do not see it documented any where in his most recent visits. He does not have any medication leftat home either. Pharmacy verified. Patient educated on proper way to check their blood pressure's at home. Education also included in patient AVS for reference. Scheduled patient in 2 weeks for his AWV/fasting labs/ and blood pressurecheck. Patient was given a blood pressure log and advised to keep track of his blood pressures at home and bring into office in 2 weeks to appointment. 1st Blood Pressure- 175/93 HR-58 2nd Blood Pressure- 169/87 HR- 58 Advised patient will Call him at this number [phone] documented in this [facility]01-30-2025 Hospital Discharge instructions* Discharge Instructions* Oscar Morelos MD - 08/21/2024 1:07 PM EST Use inhaler 2 puffs every 4 hours while awake. Continue all current medications. I think you have inflammation in your lungs from the influenza ofwhich the steroids and inhaler should help. Follow-up with your doctor in 1 week. Return here if any problems or concerns. * Attachments The following attachments cannot be sent through Care Everywhere. * Shortness of Breath (Dyspnea) Discharge Instructions ([place] Zealander) documented in this [facility]01-30-2025 Emergency department Note* Oscar Morelos MD - 08/21/2024 11:54 AM EST [facility] ED EMERGENCY DEPARTMENT ENCOUNTER Pt Name: Cortney Acosta Birthdate 1955 Date of evaluation: 08/21/2024 Provider: Oscar Morelos MD CHIEF COMPLAINT Chief Complaint Patient presents with Shortness of Breath Pt arrives from home for shortness of breath and flu like symptoms. Pt states he was recently seen in his PCP office where he tested positive for influenza A. Pt endorses pain to his R rib cage with coughing. Flu Symptoms HISTORY OF PRESENT ILLNESS (Location/Symptom, Timing/Onset,Context/Setting, Quality, Duration, Modifying Factors, Severity) Note limiting factors. Cortney Acosta is a 69 y.o. male who presents to the emergency department patient presents with shortness of breath and fatigue. He has right flank pain but that is been a chronic problem. Says it hurts when he coughs now. Diagnosed with influenza about a week ago. Just finished recent steroids and Tamiflu. Says he feels weak and fatigued. Patient does have a history of smoking but currently does not smoke. He says he feels like he has decreased appetite. HPI Historian is the patient Nurse's notes for past medical history, surgical history, social history were reviewed. Medicationsand allergies reviewed. PAST MEDICAL HISTORY Past Medical History: Diagnosis Date Arthritis Chronic back pain Chronic pain Degenerative joint disease of right hip Hypertension SURGICALHISTORY Past Surgical History: Procedure Laterality Date CARPAL TUNNEL RELEASE Right 20 years ago COLONOSCOPY COLONOSCOPY TOTAL HIP ARTHROPLASTY Right 02/28/2022 RIGHT TOTAL HIP ARTHROPLASTY WITH DIRECT ANDTERIOR APPROACH CURRENT MEDICATIONS Previous Medications CELECOXIB (CELEBREX) 200 MG CAPSULE Take 1 capsule (200 mg) by mouth 2 times daily. HYDROXYZINE HCL (ATARAX) 25 MG TABLET Take 1 tablet (25 mg) by mouth every 8 hours as needed for anxiety. LOSARTAN (COZAAR) 100 MG TABLET TAKE 1 TABLET BY MOUTH DAILY ROSUVASTATIN (CRESTOR) 5 MG TABLET TAKE 1 TABLET BY MOUTH DAILY Penicillins FAMILY HISTORY Family History Problem Relation Name Age of Onset Emphysema Mother Cancer Father SOCIAL HISTORY Social History Socioeconomic History Marital status: Tobacco Use Smoking status: Never Smokeless tobacco: Former Quit date: 12/2023 Vaping Use Vaping status: Never Used Substance and Sexual Activity Alcohol use: Not Currently Alcohol/week: 2.0 standard drinks of alcohol Types: 2 Standard drinks or equivalent per week Comment: Very occasional Drug use: No Social History Narrative Lives at home with - of 30 years Rebekah - 1 boy son previous-partner. 1 child from previous partner son- lives in [place] (somewhat estranged). 8 grandkids and 1 great. 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 Rebekah at home- good health- fibromylgia. Social Drivers of Health Financial Resource Strain: Low Risk (01/16/2024) Overall Financial Resource Strain (CARDIA) Difficulty of Paying Living Expenses: Not hard at all Food Insecurity: No Food Insecurity (01/16/2024) Hunger Vital Sign Worried About Running Out of Food in the Last Year: Never true Ran Out of Food in the Last Year: Never true Transportation Needs: No Transportation Needs (01/16/2024) PRAPARE - Transportation Lack of Transportation (Medical): No Lack of Transportation (Non-Medical): No Physical Activity: Sufficiently Active (01/16/2024) Exercise Vital Sign Days of Exercise per Week: 3 days Minutes of Exercise per Session: 150+ min Stress: No Stress Concern Present (01/16/2024) [employer] - Occupational Stress Questionnaire Feeling of Stress : Not at all Social Connections: Socially Isolated (01/16/2024) Social Connection and Isolation Panel [NHANES] Frequency of Communication with Friends and Family: Twice a week Frequency of Social Gatherings with Friends and Family: Never Attends Zoroastrian Services: Never Active Member of Clubs or Organizations: No Attends Club or Organization Meetings: Never Marital Status: Intimate Partner Violence: Not At Risk (01/16/2024) Humiliation, Afraid, Rape, and Kick questionnaire Fear of Current or Ex-Partner: No Emotionally Abused: No Physically Abused: No Sexually Abused: No Housing Stability: Low Risk (01/16/2024) Housing Stability Vital Sign Unable to Pay for Housing in the Last Year: No Number of Times Moved in the Last Year: 1 Homeless in the Last Year: No SCREENINGS PHYSICAL EXAM (up to 7 for level 4, 8 or more for level 5) @EDTRIAGEVSS@ Appropriate PPE including n 95, gown, gloves, goggles where worn when appropriate with this patient. Physical Exam Vital signs reviewed general: Alert and oriented 3 head: Atraumatic eyes: Equal round reactive to light and accommodating, pupils are equal, round and reactive to light and accommodation oropharynx: Clear and well hydrated neck: Supple heart: Regular rate and rhythm, no murmurs lungs: Coarse breath sounds with some wheezing but good air exchange abdomen: Soft nontender, positive bowel sounds, no peritoneal findings. No rebound or guarding Extremities: Moving all fours, no tenderness. Normal capillary refill. Skin: No rash or lesions -to the exposed skin neurologically: Alert and oriented 3, no focal deficit DIAGNOSTIC RESULTS RADIOLOGY: Interpretation per the Radiologist below, if availableat the time of this note: XR chest 2 views Final Result No radiographic evidence of acute cardiopulmonary process. Report Dictated on Electronically Signed By: Vito Santana MD Electronically Signed Date/Time: 08/21/2024 12:36 PM EST ED BEDSIDE ULTRASOUND: Performed by ED Physician - none LABS: Labs Reviewed COMPREHENSIVE METABOLIC PANEL - Abnormal Result Value SODIUM 140 POTASSIUM 4.2 CHLORIDE 104 CARBON DIOXIDE 27 ANION GAP 9 UREA NITROGEN 11 CREATININE 0.83 GLUCOSE 107 CALCIUM 9.3 AST (SGOT) 38 (*) ALT 46 (*) ALKALINE PHOSPHATASE 66 ALBUMIN 3.7 BILIRUBIN, TOTAL 0.4 TOTAL PROTEIN 7.4 eGFR >90.0 CBC WITH AUTO DIFFERENTIAL - Abnormal Auto WBC 7.8 RBC 4.73 Hemoglobin 14.1 Hematocrit 41.6 MCV 87.9 MCH 29.8 MCHC 33.9 RDW 12.5 Platelets 421 MPV 8.4 (*) nRBC 0.0 Neutrophils Relative 68.4 Lymphocytes Relative 25.3 Monocytes Relative 5.4 Eosinophils Relative 0.3 Basophils Relative 0.1 Immature Grans % 0.5 Neutrophils Absolute 5.4 Lymphocytes Absolute 2.0 Monocytes Absolute 0.4 Eosinophils Absolute 0.0 Basophils Absolute 0.0 Immature Grans Absolute 0.0 LIPASE - Normal LIPASE 24 All other labs were within normal range or not returned as of thisdictation. EMERGENCYDEPARTMENT COURSE and DIFFERENTIAL DIAGNOSIS/MDM: Vitals: Vitals: 08/21/24 1156 08/21/24 1157 BP: (!) 152/93 Pulse: 72 Resp: 20 Temp: 36.8 C (98.2 F) TempSrc: Temporal SpO2: 98% Weight: 65.3 kg (144 lb) Height: 1.651 m (5' 5") Medical Decision Making Problems Addressed: Bronchospasm: complicated acute illness or injury Shortness of breath: complicated acute illness or injury Amount and/or Complexity of Data Reviewed Labs: ordered. Radiology: ordered. Risk Prescription drug management. EMERGENCY DEPARTMENT COURSE and DIFFERENTIAL DIAGNOSIS/MDM: Vitals: Vitals: 08/21/24 1156 08/21/24 1157 BP: (!) 152/93 Pulse: 72 Resp: 20 Temp: 36.8 C (98.2 F) TempSrc: Temporal SpO2: 98% Weight: 65.3 kg (144 lb) Height: 1.651 m (5' 5") The patient presented with a chief complaint of weakness shortness of breath. The differential diagnosis associated with this patient's presentation includes pneumonia electrolyte disturbance dehydration biliary disease pneumothorax. Our workup consisted of ordering/reviewing chest x-ray blood work. Patient given DuoNeb x 1. Given Solu-Medrol IV. ED Course as of 08/21/24 1309 Di Aug 21, 2024 1240 Normal white blood cell count. Chest x-ray per my interpretation no acute process. [GS] 1253 Normal sodium potassium. Normal lipase. I think it is reasonable for the patient to go home onalbuterol inhaler. He is not toxic. No signs of PE or pneumonia clinically. No signs of pneumothorax [GS] 1308 Patient will get another breathing treatment for his discharge. He overall feels much better. He is comfortable going home. Sent home with prednisone and inhaler. Follow-up with his doctor in 1 week return here if any problems or concerns. Do not believe this is pneumonia or PE. [GS] ED Course User Index [GS] Oscar Morelos MD Diagnoses as of 08/21/24 1309 Shortness of breath Bronchospasm Diagnostics considered but not indicated based on history, physical, testing: EKG cardiac evaluation however not clinically Sandrine based on history and physical. In addition CT abdomen pelvis however not clinical indicated based on history and physical in fact he has chronic flank pain. External records reviewed: Outpatient records reviewed patient seen for influenza on 08/15/2024 he also had rib pain then. He is also been seen and admitted on 05/27/2024 for spondylolisthesis back pain. He said physical therapy. Radiologic diagnostics interpreted by me: film images such as CT, Ultrasound and MRI are read by the radiologist. Plain radiographic images are visualized and preliminarily interpreted by the emergency physician with the below findings: Xray(s) chest x-ray no acute process. Per my interpretation Discussions with other clinicians: none Chronic conditions impacting care: Hypertension chronic pain back pain disc disease hypertension Social determinants of health affecting care: none Shared decision making: Patient agrees to treatment plan ED Medications managed: Medications ipratropium-albuterol (Duo-Neb) 0.5-2.5 mg/3 mL nebulizer solution 3 mL (has no administration in time range) sodium chloride 0.9 % bolus 1,000 mL (0 mL IntraVENous Stopped 08/21/24 1306) ipratropium-albuterol (Duo-Neb) 0.5-2.5 mg/3 mL nebulizer solution 3 mL (3 mL Nebulization Given 08/21/24 1213) methylPREDNISolone sodium succinate (PF) (SOLU-Medrol) injection 40 mg (40 mg IntraVENous Given 08/21/24 1212) Prescription drugs prescribed: Prednisone and albuterol PROCEDURES: Unless otherwise noted below, none Procedures IMPRESSION 1. Shortness of breath 2. Bronchospasm DISPOSITION/PLAN DISPOSITION Discharge 08/21/2024 01:05:53 PM PATIENT REFERRED TO: Anthony Chamorro MD [address] [place] [address], [address] [facility] [id number] In 1 week DISCHARGE MEDICATIONS: New Prescriptions ALBUTEROL 108 (90 BASE) MCG/ACT INHALER Inhale 2 puffs every 4 hours as needed for wheezing. PREDNISONE (DELTASONE) 20 MG TABLET Take 2 tablets (40 mg) by mouth daily for 5 days. @[facility]([id number]:LAST:1)@ (Comment: Please notethis report has been produced using speech recognition software and may contain errors related to that system including errors in grammar, punctuation, and spelling, as well as words and phrases that may be inappropriate.If there is any questions or concerns please feel free tocontact the dictating provider for clarification). Oscar Morelos MD (electronically signed) Attending Emergency Physician Oscar Morelos MD 08/21/24 1309 documented in this [facility]01-30-2025 Physician Emergency department Note* Oscar Morelos MD - 08/21/2024 11:54 AM EST [facility] ED EMERGENCY DEPARTMENT ENCOUNTER Pt Name: Cortney Acosta Birthdate 1955 Date of evaluation: 08/21/2024 Provider: Oscar Morelos MD CHIEF COMPLAINT Chief Complaint Patient presents with Shortness of Breath Pt arrives from home for shortness of breath and flu like symptoms. Pt states he was recently seen in his PCP office where he tested positive for influenza A. Pt endorses pain to his R rib cage with coughing. Flu Symptoms HISTORY OF PRESENT ILLNESS (Location/Symptom, Timing/Onset,Context/Setting, Quality, Duration, Modifying Factors, Severity) Note limiting factors. Cortney Acosta is a 69 y.o. male who presents to the emergency department patient presents with shortness of breath and fatigue. He has right flank pain but that is been a chronic problem. Says it hurts when he coughs now. Diagnosed with influenza about a week ago. Just finished recent steroids and Tamiflu. Says he feels weak and fatigued. Patient does have a history of smoking but currently does not smoke. He says he feels like he has decreased appetite. HPI Historian is the patient Nurse's notes for past medical history, surgical history, social history were reviewed. Medicationsand allergies reviewed. PAST MEDICAL HISTORY Past Medical History: Diagnosis Date Arthritis Chronic back pain Chronic pain Degenerative joint disease of right hip Hypertension SURGICALHISTORY Past Surgical History: Procedure Laterality Date CARPAL TUNNEL RELEASE Right 20 years ago COLONOSCOPY COLONOSCOPY TOTAL HIP ARTHROPLASTY Right 02/28/2022 RIGHT TOTAL HIP ARTHROPLASTY WITH DIRECT ANDTERIOR APPROACH CURRENT MEDICATIONS Previous Medications CELECOXIB (CELEBREX) 200 MG CAPSULE Take 1 capsule (200 mg) by mouth 2 times daily. HYDROXYZINE HCL (ATARAX) 25 MG TABLET Take 1 tablet (25 mg) by mouth every 8 hours as needed for anxiety. LOSARTAN (COZAAR) 100 MG TABLET TAKE 1 TABLET BY MOUTH DAILY ROSUVASTATIN (CRESTOR) 5 MG TABLET TAKE 1 TABLET BY MOUTH DAILY Penicillins FAMILY HISTORY Family History Problem Relation Name Age of Onset Emphysema Mother Cancer Father SOCIAL HISTORY Social History Socioeconomic History Marital status: Tobacco Use Smoking status: Never Smokeless tobacco: Former Quit date: 12/2023 Vaping Use Vaping status: Never Used Substance and Sexual Activity Alcohol use: Not Currently Alcohol/week: 2.0 standard drinks of alcohol Types: 2 Standard drinks or equivalent per week Comment: Very occasional Drug use: No Social History Narrative Lives at home with - of 30 years Rebekah - 1 boy son previous-partner. 1 child from previous partner son- lives in [place] (somewhat estranged). 8 grandkids and 1 great. [employer]- 8 years- likes it. Rebekah at home- good health- fibromylgia. Social Drivers of Health Financial Resource Strain: Low Risk (01/16/2024) Overall Financial Resource Strain (CARDIA) Difficulty of Paying Living Expenses: Not hard at all Food Insecurity: No Food Insecurity (01/16/2024) Hunger Vital Sign Worried About Running Out of Food in the Last Year: Never true Ran Out of Food in the Last Year: Never true Transportation Needs: No Transportation Needs (01/16/2024) PRAPARE - Transportation Lack of Transportation (Medical): No Lack of Transportation (Non-Medical): No Physical Activity: Sufficiently Active (01/16/2024) Exercise Vital Sign Days of Exercise per Week: 3 days Minutes of Exercise per Session: 150+ min Stress: No Stress Concern Present (01/16/2024) [employer] - Occupational Stress Questionnaire Feeling of Stress : Not at all Social Connections: Socially Isolated (01/16/2024) Social Connection and Isolation Panel [NHANES] Frequency of Communication with Friends and Family: Twice a week Frequency of Social Gatherings with Friends and Family: Never Attends Zoroastrian Services: Never Active Member of Clubs or Organizations: No Attends Club or Organization Meetings: Never Marital Status: Intimate Partner Violence: Not At Risk (01/16/2024) Humiliation, Afraid, Rape, and Kick questionnaire Fear of Current or Ex-Partner: No Emotionally Abused: No Physically Abused: No Sexually Abused: No Housing Stability: Low Risk (01/16/2024) Housing Stability Vital Sign Unable to Pay for Housing in the Last Year: No Number of Times Moved in the Last Year: 1 Homeless in the Last Year: No SCREENINGS PHYSICAL EXAM (up to 7 for level 4, 8 or more for level 5) @EDTRIAGEVSS@ Appropriate PPE including n 95, gown, gloves, goggles where worn when appropriate with this patient. Physical Exam Vital signs reviewed general: Alert and oriented 3 head: Atraumatic eyes: Equal round reactive to light and accommodating, pupils are equal, round and reactive to light and accommodation oropharynx: Clear and well hydrated neck: Supple heart: Regular rate and rhythm, no murmurs lungs: Coarse breath sounds with some wheezing but good air exchange abdomen: Soft nontender, positive bowel sounds, no peritoneal findings. No rebound or guarding Extremities: Moving all fours, no tenderness. Normal capillary refill. Skin: No rash or lesions -to the exposed skin neurologically: Alert and oriented 3, no focal deficit DIAGNOSTIC RESULTS RADIOLOGY: Interpretation per the Radiologist below, if availableat the time of this note: XR chest 2 views Final Result No radiographic evidence of acute cardiopulmonary process. Report Dictated on Electronically Signed By: Vito Santana MD Electronically Signed Date/Time: 08/21/2024 12:36 PM EST ED BEDSIDE ULTRASOUND: Performed by ED Physician - none LABS: Labs Reviewed COMPREHENSIVE METABOLIC PANEL - Abnormal Result Value SODIUM 140 POTASSIUM 4.2 CHLORIDE 104 CARBON DIOXIDE 27 ANION GAP 9 UREA NITROGEN 11 CREATININE 0.83 GLUCOSE 107 CALCIUM 9.3 AST (SGOT) 38 (*) ALT 46 (*) ALKALINE PHOSPHATASE 66 ALBUMIN 3.7 BILIRUBIN, TOTAL 0.4 TOTAL PROTEIN 7.4 eGFR >90.0 CBC WITH AUTO DIFFERENTIAL - Abnormal Auto WBC 7.8 RBC 4.73 Hemoglobin 14.1 Hematocrit 41.6 MCV 87.9 MCH 29.8 MCHC 33.9 RDW 12.5 Platelets 421 MPV 8.4 (*) nRBC 0.0 Neutrophils Relative 68.4 Lymphocytes Relative 25.3 Monocytes Relative 5.4 Eosinophils Relative 0.3 Basophils Relative 0.1 Immature Grans % 0.5 Neutrophils Absolute 5.4 Lymphocytes Absolute 2.0 Monocytes Absolute 0.4 Eosinophils Absolute 0.0 Basophils Absolute 0.0 Immature Grans Absolute 0.0 LIPASE - Normal LIPASE 24 All other labs were within normal range or not returned as of thisdictation. EMERGENCYDEPARTMENT COURSE and DIFFERENTIAL DIAGNOSIS/MDM: Vitals: Vitals: 08/21/24 1156 08/21/24 1157 BP: (!) 152/93 Pulse: 72 Resp: 20 Temp: 36.8 C (98.2 F) TempSrc: Temporal SpO2: 98% Weight: 65.3 kg (144 lb) Height: 1.651 m (5' 5") Medical Decision Making Problems Addressed: Bronchospasm: complicated acute illness or injury Shortness of breath: complicated acute illness or injury Amount and/or Complexity of Data Reviewed Labs: ordered. Radiology: ordered. Risk Prescription drug management. EMERGENCY DEPARTMENT COURSE and DIFFERENTIAL DIAGNOSIS/MDM: Vitals: Vitals: 08/21/24 1156 08/21/24 1157 BP: (!) 152/93 Pulse: 72 Resp: 20 Temp: 36.8 C (98.2 F) TempSrc: Temporal SpO2: 98% Weight: 65.3 kg (144 lb) Height: 1.651 m (5' 5") The patient presented with a chief complaint of weakness shortness of breath. The differential diagnosis associated with this patient's presentation includes pneumonia electrolyte disturbance dehydration biliary disease pneumothorax. Our workup consisted of ordering/reviewing chest x-ray blood work. Patient given DuoNeb x 1. Given Solu-Medrol IV. ED Course as of 08/21/24 1309 Di Aug 21, 2024 1240 Normal white blood cell count. Chest x-ray per my interpretation no acute process. [GS] 1253 Normal sodium potassium. Normal lipase. I think it is reasonable for the patient to go home onalbuterol inhaler. He is not toxic. No signs of PE or pneumonia clinically. No signs of pneumothorax [GS] 1308 Patient will get another breathing treatment for his discharge. He overall feels much better. He is comfortable going home. Sent home with prednisone and inhaler. Follow-up with his doctor in 1 week return here if any problems or concerns. Do not believe this is pneumonia or PE. [GS] ED Course User Index [GS] Oscar Morelos MD Diagnoses as of 08/21/24 1309 Shortness of breath Bronchospasm Diagnostics considered but not indicated based on history, physical, testing: EKG cardiac evaluation however not clinically Sandrine based on history and physical. In addition CT abdomen pelvis however not clinical indicated based on history and physical in fact he has chronic flank pain. External records reviewed: Outpatient records reviewed patient seen for influenza on 08/15/2024 he also had rib pain then. He is also been seen and admitted on 05/27/2024 for spondylolisthesis back pain. He said physical therapy. Radiologic diagnostics interpreted by me: film images such as CT, Ultrasound and MRI are read by the radiologist. Plain radiographic images are visualized and preliminarily interpreted by the emergency physician with the below findings: Xray(s) chest x-ray no acute process. Per my interpretation Discussions with other clinicians: none Chronic conditions impacting care: Hypertension chronic pain back pain disc disease hypertension Social determinants of health affecting care: none Shared decision making: Patient agrees to treatment plan ED Medications managed: Medications ipratropium-albuterol (Duo-Neb) 0.5-2.5 mg/3 mL nebulizer solution 3 mL (has no administration in time range) sodium chloride 0.9 % bolus 1,000 mL (0 mL IntraVENous Stopped 08/21/24 1306) ipratropium-albuterol (Duo-Neb) 0.5-2.5 mg/3 mL nebulizer solution 3 mL (3 mL Nebulization Given 08/21/24 1213) methylPREDNISolone sodium succinate (PF) (SOLU-Medrol) injection 40 mg (40 mg IntraVENous Given 08/21/24 1212) Prescription drugs prescribed: Prednisone and albuterol PROCEDURES: Unless otherwise noted below, none Procedures IMPRESSION 1. Shortness of breath 2. Bronchospasm DISPOSITION/PLAN DISPOSITION Discharge 08/21/2024 01:05:53 PM PATIENT REFERRED TO: Anthony Chamorro MD [address] [place] [address], [address] [facility] [id number] In 1 week DISCHARGE MEDICATIONS: New Prescriptions ALBUTEROL 108 (90 BASE) MCG/ACT INHALER Inhale 2 puffs every 4 hours as needed for wheezing. PREDNISONE (DELTASONE) 20 MG TABLET Take 2 tablets (40 mg) by mouth daily for 5 days. @[facility]([id number]:LAST:1)@ (Comment: Please notethis report has been produced using speech recognition software and may contain errors related to that system including errors in grammar, punctuation, and spelling, as well as words and phrases that may be inappropriate.If there is any questions or concerns please feel free tocontact the dictating provider for clarification). Oscar Morelos MD (electronically signed) Attending Emergency Physician Oscar Morelos MD 08/21/24 1309 [facility] [id number] Telephone encounter Note* Telephone Encounter - Gwen Khan RN - 08/21/2024 7:30 AM EST S: Patient spoke with [facility] nurse regarding had tested for flu A last week, still has cough, headache, feels miserable B: Onset of symptoms/concern 1 week ago, Sunday A: Seen on 08/15, headache, stomach ache, decreased appetite, weakness, body aches, states fever on and off, chills, heaviness on chest from coughing. States symptoms remain the same with no improvement after Tamiflu. Clear to green mucous he is coughing up. Denies: chest pain, difficulty breathing, sore throat, earache R: Patient scheduled this afternoon 08/21 at 3:40p with Aristeo Tariq. Patient advised to wear mask to appointment. Patient understands care advice. No further needs at this time. Patient instructed to call back with new or worsening symptoms. Reason for Disposition [1] Probable mild influenza (no fever) or a common cold, with no complications AND [2] NOT HIGH RISK Protocols used: Influenza (Flu) - [id number] [facility] [id number] Miscellaneous Notes* Telephone Encounter - Gwen Khan RN - 08/21/2024 7:30 AM EST S: Patient spoke with [facility] nurse regarding had tested for flu A last week, still has cough, headache, feels miserable B: Onset of symptoms/concern 1 week ago, Sunday A: Seen on 08/15, headache, stomach ache, decreased appetite, weakness, body aches, states fever on and off, chills, heaviness on chest from coughing. States symptoms remain the same with no improvement after Tamiflu. Clear to green mucous he is coughing up. Denies: chest pain, difficulty breathing, sore throat, earache R: Patient scheduled this afternoon 08/21 at 3:40p with Aristeo Tariq. Patient advised to wear mask to appointment. Patient understands care advice. No further needs at this time. Patient instructed to call back with new or worsening symptoms. Reason for Disposition [1] Probable mild influenza (no fever) or a common cold, with no complications AND [2] NOT HIGH RISK Protocols used: Influenza (Flu) - [id number] documented in this [facility]SKind[facility] [id number] Evaluation + Plan note* Assessment & Plan Note - RONAN Valerio CNP - 08/15/2024 12:56 PM ESTAssociated Problem(s): Rib pain on right side Has right rib pain chronic intermittent, imaging has been negative in the past for any fractures orabnormalities. Issue flared up with recent vomiting episodes. Will provide tramadol for short-term use only for pain. Tylenol and ibuprofen not effective [facility]01-24-2025 Evaluation + Plan note* Assessment & Plan Note - RONAN Valerio CNP - 08/15/2024 12:56 PM ESTAssociated Problem(s): Viral URI with cough Test for influenza AMB, patient negative COVID at home [facility] [id number] Miscellaneous Notes* Assessment & Plan Note - RONAN Valerio CNP - 08/15/2024 12:56 PM ESTAssociated Problem(s): Rib pain on right side Has right rib pain chronic intermittent, imaging has been negative in the past for any fractures orabnormalities. Issue flared up with recent vomiting episodes. Will provide tramadol for short-term use only for pain. Tylenol and ibuprofen not effective * Assessment & Plan Note - RONAN Valerio CNP - 08/15/2024 12:56 PM ESTAssociated Problem(s): Viral URI with cough Test for influenza AMB, patient negative COVID at home * Assessment & Plan Note - RONAN Valerio CNP - 08/15/2024 12:55 PM ESTAssociated Problem(s): Influenza A Positive influenza A. No acute distress. Will start Tamiflu 75 mg twice daily x 5 days. documented in this [facility]01-24-2025 Evaluation + Plan note* Assessment & Plan Note - RONAN Valerio CNP - 08/15/2024 12:55 PM ESTAssociated Problem(s): Influenza A Positive influenza A. No acute distress. Will start Tamiflu 75 mg twice daily x 5 days. [facility] [id number] History of Present illness Narrative* Kaitlin Torrez - 08/15/2024 11:40 AM EST Patient was identified by name and Date of . Orders pended and signed by provider. Patient identified by name and Date of . Patient swabbedvia nasal cavity. Patient tolerated well. Point of Care Rapid influenza test completed in office. Results entered in patients chart and provider notified. * RONAN Valerio CNP - 08/15/2024 11:40 AM EST Images from the original note were not included. 08/15/2024 Cortney Acosta (: 1955) is a 69 y.o. male , Established patient, here for evaluation of the following chief complaint(s): Flank Pain (Right/), Nausea, Vomiting, Cough, and Headache ASSESSMENT/PLAN: 1. Influenza A Assessment & Plan: Positive influenza A. No acute distress. Will start Tamiflu 75 mg twice daily x 5 days. Orders: - oseltamivir (Tamiflu) 75 MG capsule; Take 1 capsule (75 mg) by mouth 2 times daily for 5 days., Starting Sun08/15/2024, Until Sun08/20/2024, Normal 2. Viral URI with cough Assessment & Plan: Test for influenza AMB, patient negative COVID at home Orders: - AMB POC RAPID INFLUENZA DNA/RNA 3. Rib pain on right side Assessment & Plan: Has right rib pain chronic intermittent, imaging has been negative in the past for any fractures orabnormalities. Issue flared up with recent vomiting episodes. Will provide tramadol for short-term use only for pain. Tylenol and ibuprofen not effective Orders: - traMADol (Ultram) 50 MG tablet; Take 1 tablet (50 mg) by mouth every 8 hours as needed for severepain (7-10) for up to 3 days., Starting Sun08/15/2024, Until Sun08/18/2024 at 2359, Normal Reviewed and provided written patient education/instructions regarding diagnosis and management. Reviewed symptom management with non-pharmacological interventions and appropriate use of otc medications for relief of symptoms. Follow up for worsening or no improvement in symptoms. Follow up if symptoms worsen or fail to improve. SUBJECTIVE/OBJECTIVE: HPI - Cortney Acosta (: 1955) is a 69 y.o. male , Established patient, here for the evaluation of the following chief complaint(s): Flank Pain (Right/), Nausea, Vomiting, Cough, and Headache Started feeling sick Sunday. Cough, congested. Body aches. Nausea and vomiting (last yesterday), loose stools, last this am. Has felt feverish, chills. No chest pain or shortness of breath. Acetaminophen. He has right sided rib pain that is hurting very badly, he has had this issue in the past and imaging has been negative. States it was flared up with his dry heaving episodes. Has tried Tylenol and ibuprofen without significant relief Prior to Admission medications Medication Sig Start Date End Date Taking? Authorizing Provider hydrOXYzine HCl (Atarax) 25 MG tablet Take 1 tablet (25 mg) by mouth every 8 hours as needed for anxiety. Patient not taking: Reported on 08/15/2024 04/22/24 Anthony Chamorro MD losartan (Cozaar) 100 MG tablet TAKE 1 TABLET BY MOUTH DAILY Patient not taking: Reported on 08/15/2024 04/07/24 Anthony Chamorro MD rosuvastatin (Crestor) 5 MG tablet TAKE 1 TABLET BY MOUTH DAILY Patient not taking: Reported on 08/15/2024 04/07/24 Anthony Chamorro MD Review of Systems Constitutional: Positive for activity change, appetite change, chills, diaphoresis, fatigue and fever. HENT: Positive for congestion, postnasal drip, sinus pressure and sinus pain. Negative for sore throat and trouble swallowing. Respiratory: Positive for cough. Negative for shortness of breath and wheezing. Cardiovascular: Negative for chest pain. Right sided rib pain Gastrointestinal: Positive for nausea and vomiting. Negative for abdominal pain. Genitourinary: Negative for difficulty urinating. Musculoskeletal: Positive for arthralgias and myalgias. Neurological: Positive for headaches. Vitals: 08/15/24 1138 BP: 102/70 Pulse: 95 Resp: 16 Temp: 37.1 C (98.7 F) TempSrc: Infrared SpO2: 96% Weight: 144 lb 12.8 oz (65.7 kg) Physical Exam Constitutional: General: He is not in acute distress. Appearance: Normal appearance. He is ill-appearing (mild). HENT: Head: Normocephalic and atraumatic. Right Ear: Tympanic membrane normal. Left Ear: Tympanic membrane normal. Nose: Congestion and rhinorrhea present. Right Turbinates: Swollen. Left Turbinates: Swollen. Mouth/Throat: Mouth: Mucous membranes are moist. Pharynx: Oropharynx is clear. No oropharyngeal exudate or posterior oropharyngeal erythema. Eyes: Conjunctiva/sclera: Conjunctivae normal. Cardiovascular: Rate and Rhythm: Normal rate and regular rhythm. Pulses: Normal pulses. Heart sounds: Normal heart sounds. Pulmonary: Effort: Pulmonary effort is normal. Breath sounds: Normal breath sounds. Comments: Intermittent productive sounding cough. Speaking full sentences without difficulty Chest: Abdominal: General: Abdomen is flat. Bowel sounds are normal. Palpations: Abdomen is soft. Tenderness: There is no abdominal tenderness. Musculoskeletal: Right lower leg: No edema. Left lower leg: No edema. Lymphadenopathy: Cervical: No cervical adenopathy. Skin: General: Skin is warm and dry. Neurological: Mental Status: He is alert and oriented to person, place, and time. Psychiatric: Mood and Affect: Mood normal. Behavior: Behavior normal. An electronic signature was used to authenticate this note. RONAN Lagunas CNP 08/15/2024 12:57 PM documented in this [facility]01-23-2025 Telephone encounter Note* Telephone Encounter - Josee Saravia RN - 08/14/2024 1:22 PM EST S: Rebekah calling [facility] for pt URI/GI sx B: 2 dys A: reports deep/productive cough, n/v/d, fever, chills/myalgias. Pt currently sleeping. Pt still tolerating fluids. requesting OV for herself & pt. R: Appt scheduled for 08/15/24 @ 1140 w/ [employer] Nicolasa. agreeable. Insurance verified. Advised hydration and call back w/ new/worse sx. Reason for Disposition Patient wants to be seen Protocols used: [id number] [facility] [id number] Miscellaneous Notes* Telephone Encounter - Josee Saravia RN - 08/14/2024 1:22 PM EST S: Rebekah calling [facility] for pt URI/GI sx B: 2 dys A: reports deep/productive cough, n/v/d, fever, chills/myalgias. Pt currently sleeping. Pt still tolerating fluids. requesting OV for herself & pt. R: Appt scheduled for 08/15/24 @ 1140 w/ [employer] Nicolasa. agreeable. Insurance verified. Advised hydration and call back w/ new/worse sx. Reason for Disposition Patient wants to be seen Protocols used: [id number] documented in this [facility]11-04-2024 Evaluation + Plan note* Assessment & Plan Note - RONAN Valerio CNP - 05/26/2024 4:55 PM ESTAssociated Problem(s): Spinal stenosis of lumbosacral region Follow up with orthopedic as directed. [place] [id number] Evaluation + Plan note* Assessment & Plan Note - RONAN Valerio CNP - 05/26/2024 4:55 PM ESTAssociated Problem(s): Renal cyst Recommend getting retroperitoneal ultrasound completed after surgery to further evaluate area. [place] [id number] Miscellaneous Notes* Assessment & Plan Note - RONAN Valerio CNP - 05/26/2024 4:55 PM ESTAssociated Problem(s): Spinal stenosis of lumbosacral region Follow up with orthopedic as directed. * Assessment & Plan Note - RONAN Valerio CNP - 05/26/2024 4:55 PM ESTAssociated Problem(s): Renal cyst Recommend getting retroperitoneal ultrasound completed after surgery to further evaluate area. documented in this [facility]11-04-2024 History of Present illness Narrative* Ashley Xiong, PT - 05/26/2024 2:56 PM EST Images from the original note were not included. [facility] [address] [facility] [id number] Discharge Notification Patient Name: Cortney Acosta : 1955 Today's Date: 05/26/2024 Patient has not been seen since 03/25/24. The patient will be discharged at this time due to inactivity. The patient has not been seen for outpatient therapy in 30+ days and has not made contact to reschedule. The patient will require new referral/evaluation to resume therapy in the future. The patient will be discharged at this time. Please refer to initial evaluation or re-assessment for last goals/objective measures assessment and progress report. Thank you for this referral. For any questions on this patient s course of therapy, please call theclinic for clarification. Ashley Xiong PT documented in this [facility]11-04-2024 History of Present illness Narrative* Emily Salgado MA - 05/26/2024 2:40 PM EST Patient verified by last name and . * Ilan Tariq APRN - CHUN - 05/26/2024 2:40 PM EST Images from the original note were not included. 05/26/2024 Cortney Acosta (: 1955) is a 68 y.o. male , Established patient, here for evaluation of the following chief complaint(s): Follow-up (States he had a CT and is scheduled to have back surgery tomorrow morning, is just having some questions regarding everything ) ASSESSMENT/PLAN: 1. Spinal stenosis of lumbosacral region Assessment & Plan: Follow up with orthopedic as directed. 2. Renal cyst Assessment & Plan: Recommend getting retroperitoneal ultrasound completed after surgery to further evaluate area. Spent [address] results and current results. Discussed risk/benefit of postponing surgery to further evaluate renal cyst. Patient has decided to have his surgery tomorrow and then will schedule the retroperitoneal surgery in a couple weeks.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 included. 03/11/2024 Cortney Acosta (: 1955) is a 68 y.o. male , Established patient, here for evaluation of the following chief complaint(s): ER Follow-up ([facility] 03/06/24 side pain) ASSESSMENT/PLAN: 1. Right lower quadrant abdominal pain Assessment & Plan: Resolved, reassurance that this is not GI related Follow up if symptoms worsen or fail to improve. SUBJECTIVE/OBJECTIVE: EVETTE Fields comes in today for follow-up on emergency room visit 4 days ago he went in for right lower quadrant abdominal pain and his workup was completely negative and he says that he sometimes gets right abdominal muscle pain when he gets back pain and he has been in physical therapy for his back pain and he said that they he had really worked him hard and his back was bothering him. Says the pain is pretty much resolved he has had no fevers no chills and he says his bowels are moving normal no black tarry stools or blood in his bowel movement. No constipation Review of Systems Constitutional: Negative for chills and fever. Respiratory: Negative for shortness of breath. Cardiovascular: Negative for chest pain and palpitations. Gastrointestinal: Positive for abdominal pain. Negative for blood in stool, constipation and diarrhea. Genitourinary: Negative for dysuria, frequency, hematuria and urgency. Vitals: 03/11/24 1435 03/11/24 1454 BP: (!) 152/90 136/86 Pulse: 75 62 SpO2: 98% Weight: 150 lb 12.8 oz (68.4 kg) Height: 5' 5" (1.651 m) Physical Exam Vitals and nursing note reviewed. Constitutional: General: He is not in acute distress. Appearance: Normal appearance. HENT: Head: Normocephalic. Mouth/Throat: Mouth: Mucous membranes are moist. Pharynx: Oropharynx is clear. Eyes: Extraocular Movements: Extraocular movements intact. Pupils: Pupils are equal, round, and reactive to light. Cardiovascular: Rate and Rhythm: Normal rate and regular rhythm. Heart sounds: Normal heart sounds. Pulmonary: Effort: Pulmonary effort is normal. Breath sounds: Normal breath sounds. Abdominal: General: Bowel sounds are normal. Palpations: Abdomen is soft. Tenderness: There is no abdominal tenderness. Musculoskeletal: Cervical back: Neck supple. Neurological: Mental Status: He is alert. An electronic signature was used to authenticate this note. Anthony Chamorro MD 03/11/2024 4:20 PM documented in this [facility]08-20-2024 History of Present illness Narrative* Ashley Xiong, PT - 03/11/2024 7:45 AM EDT Images from the original note were not included. [facility] [address] [facility] [address] Dept: [phone] Dept PHYSICAL THERAPY TREATMENT Patient Name: Cortney Acosta : 1955 Date of Service: 03/11/2024 Referring Provider: Weston Henao MD Visit #: 2 Diagnosis: Cervical radiculitis Mechanism of injury: Insidious onset of neck pain/ between the shoulder blades, 2-3 weeks ago, not sure why. Pain can be severe at times and had to leave work yesterday. Patient Preferences: Cortney Precautions/Red Flags: None Subjective Cortney reports that he had a sudden pain over the R abdominal quadrant the night following therapy, went to the ER but they did not find anything. Patient reports that the neck has been feeling good, better but some low back pain/ soreness especially @ lumbo pelvic junction, L>R. Compliance with HEP: Yes Objective Significant decreased HS flexibility, decreased trunk ext noted with exs today. Objective measurements not taken today. Treatment Therapeutic Activity Therapeutic Activity 1: Reviewed symptoms, response to HEP, low back pain soreness, and recent ER visit Therapeutic Activity 2: Supine chin tuck + head press + scap sq. + arm lengthening for postural correction and awareness Therapeutic Activity 3: Supine deep neck flexor trianing progression with hold for endurance Therapeutic Activity 4: Standing rows with cueing for proper scapular and cervical retraction Activity 4 Comment: GTB x 10 Therapeutic Activity 5: Standing pull-downs Activity 5 Comment: GTB x 10 Therapeutic Activity 6: Standing shoulder bilat ER with cueing for proper cerv + scap retraction, use wall for cueing as needed Activity 6 Comment: GTB x 10 Therapeutic Activity 7: Reviewed proper posture, importance of not tensing up shoulder/no shrugging. Therapeutic Activity 8: Hook lying scapular protraction with cueing to keep shoulders down Activity 8 Comment: 2x5# Therapeutic Activity 9: Attempted segmental bridges but deferred due to LB soreness Therapeutic Activity 10: SL Open book with cueing to keep exs comfortable Activity 10 Comment: 5x5" ea Therapeutic Activity 11: 4 ped cat cow with cueing to work on extension and segmental flexion control with proper breathing Activity 11 Comment: 10x Therapeutic Activity 12: Quadruped decompression with mini back rock and tail wagging for low back release and shoulder flexion/thoracic extension stretch Soft Tissue Mobilization Location: STM/DTM in the posterior cervical region in hook lying Myofasical Release Location: Posterior and lateral cervical region, suboccipital release Joint Mobilization Location: Gentle cervical manual traction as tolerated Body Position: Supine Home Exercise Program: Progressed home exercise program Assessment Skilled physical therapy interventions utilized to improve patient s impairments and work towards established goals. Patient response to treatment: Good response to therapy, patient continues to need cueing to avoid shrugging shoulders up and tensing up too much. Mild low back pain noted with standing rows and pulldown, needed correction to avoid trunk flexion. Responded well to new trunk mobility exercises with minimal low back pain. Overall, improved posture, patient continues to need cueing to avoid over tensing during exercises. Patient will benefit from continued physical therapy to regain postural and body awareness, improvecervical and scapular retraction and awareness, strength and endurance to reduce neck pain and restore full function. The rationale for today s treatment was explained to the patient. Verbal cues were provided for correct form with all exercises. Advised patient to continue with Home Exercise Program (HEP). Goals General/Ortho Patient will be independent with HEP. (Progressing) Start: 03/06/24 Expected End: 05/06/24 Patient will report decreased pain at 0-1/10 in upper thoracic/ cervical region to be able to lift and work above shoulder level without pain. (Progressing) Start: 03/06/24 Expected End: 05/06/24 Patient will increase strength in scapula to 4+/5 to be able to use UE safely without pain (Initiated) Start: 03/06/24 Expected End: 05/06/24 Functional Outcome Measure: Patient will improve NDI from 32 to 16% or less (Initiated) Start: 03/06/24 Expected End: 05/06/24 Patient will demonstrate proper posture and body mechanics in the clinic to return to bending and lifting safely with work activities (Initiated) Start: 03/06/24 Expected End: 05/06/24 Plan Plan for next session: Assess response to MT, monitor LBP (especially with standing scapular retraction exercises) and progress with scapular stabilization exercises as able. Time Entry Total Treatment Time Start Time: 854 Stop Time: 942 Time Calculation (min): 48 min PT Therapeutic Procedures Time Entry Therapeutic Activity Time Entry: 30 Manual Therapy Time Entry: 15 Ashley Xiong PT documented in this [facility]08-16-2024 Hospital Discharge instructions* Discharge Instructions* Marek Ly MD - 03/07/2024 4:00 AM EDT INFORMATION: You were treated in the emergency department for abdominal pain There are many causes of abdominal pain, some serious and some not serious. Based on your evaluation, even if we were not able to determine an absolute cause of your abdominal pain, we think that youare safe to follow up with a primary medical doctor for further evaluation as needed. INSTRUCTIONS: Take over the counter medications such as Tylenol. Avoid NSAID medications like aspirin, naproxen and ibuprofen as these medications for long periods of time or at high doses can damage the lining of your stomach and may be contributing to your abdominal pain. Take any other prescribed pain relievers as directed. Eat or drink foods that you think will be gentle on your stomach. Avoid spicy foods until you are feeling better. Try eating bland foods and avoiding junk food or otherwise greasy food at least untilyour pain is entirely gone. Avoid alcohol until your symptoms have resolved and then only drink in moderation. FOLLOW-UP: Call your primary care doctor in 3-5 days to follow up on your symptoms as an outpatient. If your pain changes in type, location, or severity, if you develop a new fever greater than 100.5 or have uncontrolled nausea and vomiting, or if you are otherwise concerned please return to the ER for re-evaluation as soon as possible. If your symptoms have not resolved or improved significantly in 48-72 hours please return for a repeat evaluation. Return to the ER for difficulty breathing, inability to keep down liquids by mouth, urinating less than twice a day, severe pain, other concerning symptoms. Please sign up for MyChart and review all results from your visit today. Please follow up with yourprimary care provider with any questions or concerns about your results today. Thank you for choosing [facility] for your care. Sincerely, Marek Ly MD * Attachments The following attachments cannot be sent through Care Everywhere. * Abdominal Pain, Adult ED ([place]) documented in this [facility]08-16-2024 Emergency department Note* Marek Ly MD - 03/07/2024 2:01 AM EDT [facility] ED EMERGENCY DEPARTMENT ENCOUNTER Pt Name: Cortney Acosta Birthdate 1955 Date of evaluation: 03/07/2024 Provider: Marek Ly MD CHIEF COMPLAINT Chief Complaint Patient presents with Abdominal Pain RLQ HISTORY OF PRESENT ILLNESS I wore proper PPE for the entirety of this encounter. Cortney Acosta is a 68 y.o. male who presents to the emergency department with right lower quadrant abdominal pain that started just prior to arrival. Patient notes the pain might radiate to his low back though he has chronic back pain. No nausea, vomiting, diarrhea, dysuria, hematuria. No prior abdominal surgeries. Nursing Notes were reviewed. REVIEW OF SYSTEMS As above PAST MEDICAL HISTORY Past Medical History: Diagnosis Date Arthritis Degenerative joint disease of right hip Hypertension SURGICAL HISTORY Past Surgical History: Procedure Laterality Date CARPAL TUNNEL RELEASE Right 20 years ago COLONOSCOPY COLONOSCOPY TOTAL HIP ARTHROPLASTY Right 02/28/2022 RIGHT TOTAL HIP ARTHROPLASTY WITH DIRECT ANDTERIOR APPROACH CURRENT MEDICATIONS Previous Medications LOSARTAN (COZAAR) 100 MG TABLET Take 1 tablet (100 mg) by mouth daily. MELOXICAM (MOBIC) 15 MG TABLET TAKE 1 TABLET BY MOUTH EVERY MORNING WITH FOOD TO REDUCE SWELLING. DO NOT TAKE WITH OTHER NSAIDS (IBUPROFEN, ADVIL, MOTRIN, ALEVE,OR NAPROXEN) ROSUVASTATIN (CRESTOR) 5 MG TABLET Take 1 tablet (5 mg) by mouth daily. TIZANIDINE (ZANAFLEX) 4 MG TABLET Take 1 tablet (4 mg) by mouth every 8 hours as needed for muscle spasms for up to 7 days. ALLERGIES Penicillins FAMILY HISTORY Family History Problem Relation Name Age of Onset Emphysema Mother Cancer Father SOCIAL HISTORY Social History Socioeconomic History Marital status: Tobacco Use Smoking status: Never Smokeless tobacco: Current Vaping Use Vaping status: Never Used Substance and Sexual Activity Alcohol use: Yes Alcohol/week: 2.0 standard drinks of alcohol Types: 2 Standard drinks or equivalent per week Comment: one beer per week Drug use: No Social History Narrative Lives at home with - of 30 years Rebekah - 1 boy son previous-partner. 1 child from previous partner son- lives in [place] (somewhat estranged). 8 grandkids and 1 great. 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 Rebekah at home- good health- fibromylgia. Social Determinants of Health Financial Resource Strain: Low Risk (01/16/2024) Overall Financial Resource Strain (CARDIA) Difficulty of Paying Living Expenses: Not hard at all Food Insecurity: No Food Insecurity (01/16/2024) Hunger Vital Sign Worried About Running Out of Food in the Last Year: Never true Ran Out of Food in the Last Year: Never true Transportation Needs: No Transportation Needs (01/16/2024) PRAPARE - Transportation Lack of Transportation (Medical): No Lack of Transportation (Non-Medical): No Physical Activity: Sufficiently Active (01/16/2024) Exercise Vital Sign Days of Exercise per Week: 3 days Minutes of Exercise per Session: 150+ min Stress: No Stress Concern Present (01/16/2024) [employer] - Occupational Stress Questionnaire Feeling of Stress : Not at all Social Connections: Socially Isolated (01/16/2024) Social Connection and Isolation Panel [NHANES] Frequency of Communication with Friends and Family: Twice a week Frequency of Social Gatherings with Friends and Family: Never Attends Zoroastrian Services: Never Active Member of Clubs or Organizations: No Attends Club or Organization Meetings: Never Marital Status: Intimate Partner Violence: Not At Risk (01/16/2024) Humiliation, Afraid, Rape, and Kick questionnaire Fear of Current or Ex-Partner: No Emotionally Abused: No Physically Abused: No Sexually Abused: No Housing Stability: Low Risk (01/16/2024) Housing Stability Vital Sign Unable to Pay for Housing in the Last Year: No Number of Times Moved in the Last Year: 1 Homeless in the Last Year: No SCREENINGS PHYSICAL EXAM ED Triage Vitals [03/07/24 0211] Temp Heart Rate Resp BP 36.6 C (97.8 F) 63 18 (!) 172/95 SpO2 Temp Source Heart Rate Source Patient Position 100 % Oral Monitor Sitting BP Location FiO2 (%) Right arm -- Constitutional: No acute distress HEENT:Head: Atraumatic Eyes: Conjunctivae normal. CV: RRR RESP: CTAB, good respiratory effort, no increased wob GI: Abdomen soft, mild right lower quadrant tenderness, non-distended, +BS, no guarding or rebound tenderness MSK: Normal bulk and tone, no gross deformity BACK: No CVA tenderness EXTR: Warm and well perfused, no edema SKIN: No rash/bruising/erythema PSYCH: Appropriate affect, cooperative behavior NEURO: Alert, face symmetric, no slurred speech DIAGNOSTIC RESULTS Interpretation per the Radiologist below, if available at the time of this note: CT abdomen pelvis w contrast Final Result 1. Few scattered colonic diverticula. No evidence of acute diverticulitis. 2. Normal appendix. Report Dictated on Electronically Signed By: Solomon Cardona MD Electronically Signed Date/Time: 03/07/2024 3:47 AM EDT LABS: Labs Reviewed CBC WITH AUTO DIFFERENTIAL - Abnormal Result Value Auto WBC 8.3 RBC 4.34 (*) Hemoglobin 13.6 Hematocrit 38.8 (*) MCV 89.4 MCH 31.3 MCHC 35.1 RDW 13.2 Platelets 317 MPV 8.7 (*) nRBC 0.0 Neutrophils Relative 52.9 Lymphocytes Relative 37.6 Monocytes Relative 7.0 Eosinophils Relative 1.8 Basophils Relative 0.5 Immature Grans % 0.2 Neutrophils Absolute 4.4 Lymphocytes Absolute 3.1 Monocytes Absolute 0.6 Eosinophils Absolute 0.2 Basophils Absolute 0.0 Immature Grans Absolute 0.0 COMPREHENSIVE METABOLIC PANEL - Abnormal SODIUM 137 POTASSIUM 3.8 CHLORIDE 104 CARBON DIOXIDE 27 ANION GAP 5 UREA NITROGEN 25 (*) CREATININE 0.78 GLUCOSE 96 CALCIUM 9.4 AST (SGOT) 26 ALT 14 ALKALINE PHOSPHATASE 54 ALBUMIN 4.0 BILIRUBIN, TOTAL 0.5 TOTAL PROTEIN 6.8 eGFR >90.0 LIPASE - Normal LIPASE 94 COMPLETE URINALYSIS - Normal Color, Urine Colorless Clarity, Urine Clear pH, Urine 6.0 Leukocytes, Urine Negative Nitrite, Urine Negative Protein, Urine Negative Glucose, Urine Normal Bilirubin, Urine Negative Ketones, Urine Negative Urobilinogen, Urine Normal Blood, Urine Negative SPECIFIC GRAVITY OF URINE (NUMERIC) 1.018 COMPLETE URINALYSIS WITH REFLEX TO CULTURE Narrative: The following orders were created for panel order Urinalysis Complete with reflex to Culture. Procedure Abnormality Status --------- ------ Complete Urinalysis[[id number]] Normal Final result Please view results for these tests on the individual orders. EMERGENCY DEPARTMENT COURSE and DIFFERENTIAL DIAGNOSIS/MDM: Vitals: Vitals: 03/07/24 0211 03/07/24 0311 BP: (!) 172/95 (!) 156/86 BP Location: Right arm Right arm Patient Position: Sitting Sitting Pulse: 63 51 Resp: 18 16 Temp: 36.6 C (97.8 F) TempSrc: Oral SpO2: 100% 99% Weight: 68 kg (150 lb) Height: 1.651 m (5' 5") Medications morphine injection 4 mg (4 mg IntraVENous Given 03/07/24 0220) ondansetron (Zofran) injection 4 mg (4 mg IntraVENous Given 03/07/24 0232) sodium chloride 0.9 % bolus 1,000 mL (0 mL IntraVENous Stopped 03/07/24 032) I personally saw the patient and performed a substantive portion of the visit including all aspectsof the medical decision making. Patient appears nontoxic. Hypertensive. Other vitals normal. I ordered morphine 4 mg IV for pain and Zofran for milligrams IV for nausea associated with pain. 1 L of IV fluids for mild dehydration. CBC with no leukocytosis, anemia, thrombocytopenia. CMP is normal. Lipase normal. UA with no sign of infection. CT abdominal and pelvis with no free air concerning for bowel perforation, no inflammatory changes in the RLQ concerning for appendicitis, no sign of obstruction on my interpretation. Abdominal exam without peritoneal signs. No evidence of acute abdomen at this time. Well appearing.Given work up, low suspicion for acute hepatobiliary disease (including acute cholecystitis or cholangitis), acute pancreatitis (neg lipase), PUD (including gastric perforation), acute infectious processes (pneumonia, hepatitis, pyelonephritis), acute appendicitis, vascular catastrophe, bowel obstruction, viscus perforation, testicular torsion (no testicular pain), or diverticulitis. Presentationnot consistent with other acute, emergent causes of abdominal pain at this time. Pt feels mildly improved after treatment. Recommended close PCP follow up. Discharged home. I discussed test results and plan with the patient. Diagnoses as of 03/07/24409 RLQ abdominal pain PROCEDURES: Unless otherwise noted below, none Procedures Patients symptoms are consistent with sepsis, severe sepsis, or septic shock (If yes use ".sepsiscoremeasure"): no FINAL IMPRESSION 1. RLQ abdominal pain DISPOSITION/PLAN Discharge 03/07/2024 03:59:36 AM PATIENT REFERRED TO: Anthony Chamorro MD [address] [place] [address], [address] [place] [phone] Schedule an appointment as soon as possible for a visit DISCHARGE MEDICATIONS: New Prescriptions No medications on file (Please note: Portions of this note were completed with a voice recognition program. Efforts were made to edit the dictations but occasionally words and phrases are mis-transcribed.) Marek Ly MD [facility] Emergency Medicine Physician [facility] Marek Ly MD 03/07/24409 * Ester Morelos RN - 03/07/2024 2:01 AM EDT Patient arrived via wheelchair to room 3 with . Patient complains of RLQ abdominal pain that radiates to lower back and woke him up this AM. Patient nauseated from pain. Patient denies vomiting or fever. Pain 10/10 and sharp. * Doris Vasquez RN - 03/07/2024 2:01 AM EDT PT GIVEN DC INSTRUCTIONS AND FOLLOW UP CARE. PT VERBALIZES UNDERSTANDING. IV DC'D, CANNULA INTACT.PT AMB INDEP TO DC AREA, ZOE Smith FAMILY documented in this [facility]08-16-2024 Emergency department Triage note* Ester Morelos RN - 03/07/2024 2:01 AM EDT Patient arrived via wheelchair to room 3 with . Patient complains of RLQ abdominal pain that radiates to lower back and woke him up this AM. Patient nauseated from pain. Patient denies vomiting or fever. Pain 10/10 and sharp. [place] [id number] Emergency department Triage note* Doris Vasquez RN - 03/07/2024 2:01 AM EDT PT GIVEN DC INSTRUCTIONS AND FOLLOW UP CARE. PT VERBALIZES UNDERSTANDING. IV DC'D, CANNULA INTACT.PT AMB INDEP TO DC AREA, ZOE Smith FAMILY [place] [id number] Physician Emergency department Note* Marek Ly MD - 03/07/2024 2:01 AM EDT [facility] ED EMERGENCY DEPARTMENT ENCOUNTER Pt Name: Cortney Acosta Birthdate 1955 Date of evaluation: 03/07/2024 Provider: Marek Ly MD CHIEF COMPLAINT Chief Complaint Patient presents with Abdominal Pain RLQ HISTORY OF PRESENT ILLNESS I wore proper PPE for the entirety of this encounter. Cortney Acosta is a 68 y.o. male who presents to the emergency department with right lower quadrant abdominal pain that started just prior to arrival. Patient notes the pain might radiate to his low back though he has chronic back pain. No nausea, vomiting, diarrhea, dysuria, hematuria. No prior abdominal surgeries. Nursing Notes were reviewed. REVIEW OF SYSTEMS As above PAST MEDICAL HISTORY Past Medical History: Diagnosis Date Arthritis Degenerative joint disease of right hip Hypertension SURGICAL HISTORY Past Surgical History: Procedure Laterality Date CARPAL TUNNEL RELEASE Right 20 years ago COLONOSCOPY COLONOSCOPY TOTAL HIP ARTHROPLASTY Right 02/28/2022 RIGHT TOTAL HIP ARTHROPLASTY WITH DIRECT ANDTERIOR APPROACH CURRENT MEDICATIONS Previous Medications LOSARTAN (COZAAR) 100 MG TABLET Take 1 tablet (100 mg) by mouth daily. MELOXICAM (MOBIC) 15 MG TABLET TAKE 1 TABLET BY MOUTH EVERY MORNING WITH FOOD TO REDUCE SWELLING. DO NOT TAKE WITH OTHER NSAIDS (IBUPROFEN, ADVIL, MOTRIN, ALEVE,OR NAPROXEN) ROSUVASTATIN (CRESTOR) 5 MG TABLET Take 1 tablet (5 mg) by mouth daily. TIZANIDINE (ZANAFLEX) 4 MG TABLET Take 1 tablet (4 mg) by mouth every 8 hours as needed for muscle spasms for up to 7 days. ALLERGIES Penicillins FAMILY HISTORY Family History Problem Relation Name Age of Onset Emphysema Mother Cancer Father SOCIAL HISTORY Social History Socioeconomic History Marital status: Tobacco Use Smoking status: Never Smokeless tobacco: Current Vaping Use Vaping status: Never Used Substance and Sexual Activity Alcohol use: Yes Alcohol/week: 2.0 standard drinks of alcohol Types: 2 Standard drinks or equivalent per week Comment: one beer per week Drug use: No Social History Narrative Lives at home with - of 30 years Rebekah - 1 boy son previous-partner. 1 child from previous partner son- lives in [place] (somewhat estranged). 8 grandkids and 1 great. 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 Rebekah at home- good health- fibromylgia. Social Determinants of Health Financial Resource Strain: Low Risk (01/16/2024) Overall Financial Resource Strain (CARDIA) Difficulty of Paying Living Expenses: Not hard at all Food Insecurity: No Food Insecurity (01/16/2024) Hunger Vital Sign Worried About Running Out of Food in the Last Year: Never true Ran Out of Food in the Last Year: Never true Transportation Needs: No Transportation Needs (01/16/2024) PRAPARE - Transportation Lack of Transportation (Medical): No Lack of Transportation (Non-Medical): No Physical Activity: Sufficiently Active (01/16/2024) Exercise Vital Sign Days of Exercise per Week: 3 days Minutes of Exercise per Session: 150+ min Stress: No Stress Concern Present (01/16/2024) [employer] [employer] - Occupational Stress Questionnaire Feeling of Stress : Not at all Social Connections: Socially Isolated (01/16/2024) Social Connection and Isolation Panel [NHANES] Frequency of Communication with Friends and Family: Twice a week Frequency of Social Gatherings with Friends and Family: Never Attends Zoroastrian Services: Never Active Member of Clubs or Organizations: No Attends Club or Organization Meetings: Never Marital Status: Intimate Partner Violence: Not At Risk (01/16/2024) Humiliation, Afraid, Rape, and Kick questionnaire Fear of Current or Ex-Partner: No Emotionally Abused: No Physically Abused: No Sexually Abused: No Housing Stability: Low Risk (01/16/2024) Housing Stability Vital Sign Unable to Pay for Housing in the Last Year: No Number of Times Moved in the Last Year: 1 Homeless in the Last Year: No SCREENINGS PHYSICAL EXAM ED Triage Vitals [03/07/24 0211] Temp Heart Rate Resp BP 36.6 C (97.8 F) 63 18 (!) 172/95 SpO2 Temp Source Heart Rate Source Patient Position 100 % Oral Monitor Sitting BP Location FiO2 (%) Right arm -- Constitutional: No acute distress HEENT:Head: Atraumatic Eyes: Conjunctivae normal. CV: RRR RESP: CTAB, good respiratory effort, no increased wob GI: Abdomen soft, mild right lower quadrant tenderness, non-distended, +BS, no guarding or rebound tenderness MSK: Normal bulk and tone, no gross deformity BACK: No CVA tenderness EXTR: Warm and well perfused, no edema SKIN: No rash/bruising/erythema PSYCH: Appropriate affect, cooperative behavior NEURO: Alert, face symmetric, no slurred speech DIAGNOSTIC RESULTS Interpretation per the Radiologist below, if available at the time of this note: CT abdomen pelvis w contrast Final Result 1. Few scattered colonic diverticula. No evidence of acute diverticulitis. 2. Normal appendix. Report Dictated on Electronically Signed By: Solomon Cardona MD Electronically Signed Date/Time: 03/07/2024 3:47 AM EDT LABS: Labs Reviewed CBC WITH AUTO DIFFERENTIAL - Abnormal Result Value Auto WBC 8.3 RBC 4.34 (*) Hemoglobin 13.6 Hematocrit 38.8 (*) MCV 89.4 MCH 31.3 MCHC 35.1 RDW 13.2 Platelets 317 MPV 8.7 (*) nRBC 0.0 Neutrophils Relative 52.9 Lymphocytes Relative 37.6 Monocytes Relative 7.0 Eosinophils Relative 1.8 Basophils Relative 0.5 Immature Grans % 0.2 Neutrophils Absolute 4.4 Lymphocytes Absolute 3.1 Monocytes Absolute 0.6 Eosinophils Absolute 0.2 Basophils Absolute 0.0 Immature Grans Absolute 0.0 COMPREHENSIVE METABOLIC PANEL - Abnormal SODIUM 137 POTASSIUM 3.8 CHLORIDE 104 CARBON DIOXIDE 27 ANION GAP 5 UREA NITROGEN 25 (*) CREATININE 0.78 GLUCOSE 96 CALCIUM 9.4 AST (SGOT) 26 ALT 14 ALKALINE PHOSPHATASE 54 ALBUMIN 4.0 BILIRUBIN, TOTAL 0.5 TOTAL PROTEIN 6.8 eGFR >90.0 LIPASE - Normal LIPASE 94 COMPLETE URINALYSIS - Normal Color, Urine Colorless Clarity, Urine Clear pH, Urine 6.0 Leukocytes, Urine Negative Nitrite, Urine Negative Protein, Urine Negative Glucose, Urine Normal Bilirubin, Urine Negative Ketones, Urine Negative Urobilinogen, Urine Normal Blood, Urine Negative SPECIFIC GRAVITY OF URINE (NUMERIC) 1.018 COMPLETE URINALYSIS WITH REFLEX TO CULTURE Narrative: The following orders were created for panel order Urinalysis Complete with reflex to Culture. Procedure Abnormality Status --------- ------ Complete Urinalysis[[id number]] Normal Final result Please view results for these tests on the individual orders. EMERGENCY DEPARTMENT COURSE and DIFFERENTIAL DIAGNOSIS/MDM: Vitals: Vitals: 03/07/24 0211 03/07/24 0311 BP: (!) 172/95 (!) 156/86 BP Location: Right arm Right arm Patient Position: Sitting Sitting Pulse: 63 51 Resp: 18 16 Temp: 36.6 C (97.8 F) TempSrc: Oral SpO2: 100% 99% Weight: 68 kg (150 lb) Height: 1.651 m (5' 5") Medications morphine injection 4 mg (4 mg IntraVENous Given 03/07/24 0220) ondansetron (Zofran) injection 4 mg (4 mg IntraVENous Given 03/07/24 0232) sodium chloride 0.9 % bolus 1,000 mL (0 mL IntraVENous Stopped 03/07/24 0323) I personally saw the patient and performed a substantive portion of the visit including all aspectsof the medical decision making. Patient appears nontoxic. Hypertensive. Other vitals normal. I ordered morphine 4 mg IV for pain and Zofran for milligrams IV for nausea associated with pain. 1 L of IV fluids for mild dehydration. CBC with no leukocytosis, anemia, thrombocytopenia. CMP is normal. Lipase normal. UA with no sign of infection. CT abdominal and pelvis with no free air concerning for bowel perforation, no inflammatory changes in the RLQ concerning for appendicitis, no sign of obstruction on my interpretation. Abdominal exam without peritoneal signs. No evidence of acute abdomen at this time. Well appearing.Given work up, low suspicion for acute hepatobiliary disease (including acute cholecystitis or cholangitis), acute pancreatitis (neg lipase), PUD (including gastric perforation), acute infectious processes (pneumonia, hepatitis, pyelonephritis), acute appendicitis, vascular catastrophe, bowel obstruction, viscus perforation, testicular torsion (no testicular pain), or diverticulitis. Presentationnot consistent with other acute, emergent causes of abdominal pain at this time. Pt feels mildly improved after treatment. Recommended close PCP follow up. Discharged home. I discussed test results and plan with the patient. Diagnoses as of 03/07/24409 RLQ abdominal pain PROCEDURES: Unless otherwise noted below, none Procedures Patients symptoms are consistent with sepsis, severe sepsis, or septic shock (If yes use ".sepsiscoremeasure"): no FINAL IMPRESSION 1. RLQ abdominal pain DISPOSITION/PLAN Discharge 03/07/2024 03:59:36 AM PATIENT REFERRED TO: Anthony Chamorro MD [address] [place] [address] [address] [facility] [phone] Schedule an appointment as soon as possible for a visit DISCHARGE MEDICATIONS: New Prescriptions No medications on file (Please note: Portions of this note were completed with a voice recognition program. Efforts were made to edit the dictations but occasionally words and phrases are mis-transcribed.) Marek Ly MD [facility] Emergency Medicine Physician [facility] Marek Ly MD 03/07/24409 [facility] [id number] History of Present illness Narrative* Ashley Xiong, PT - 03/06/2024 7:30 AM EDT Images from the original note were not included. [facility] AT [address] [facility] [address] Dept: [phone] Dept PHYSICAL THERAPY EVALUATION Patient Name: Cortney Acosta : 1955 Date of Service: 03/06/2024 Referring Provider: Weston Henao MD Visit #: 1 Diagnosis: Cervical radiculitis Scapular dyskinesis General Information Mechanism of injury: Insidious onset of neck pain/ between the shoulder blades, 2-3 weeks ago, not sure why. Pain can be severe at times and had to leave work yesterday. 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 Home Setup: House PMHX: Cortney has a past medical history of Arthritis, Degenerative joint disease of right hip, and Hypertension. PSHX: Cortney has a past surgical history that includes Carpal tunnel release (Right, 20 years ago); Colonoscopy; Colonoscopy; and Total hip arthroplasty (Right, 02/28/2022). Have you experienced any anxiety or depression?: No Have you experienced thoughts of self-harm or suicidal thoughts?: No Social Determinates of Health Reviewed: No Physician follow-up appointment?: No Subjective Chief Complaint: Pain located in the upper thoracic region, between shoulder blades, sometimes radiates up but neck normally just feels a little stiff and crunchy. Pain also radiates sometimes over the L upper scapular region. Initially had spot of pain over medial wrists, bilateral but is gone now. Pain: Current: 5/10 Best: 0/10 Worst: 10/10, had to leave work Symptoms Aggravated by: worse with activities, alejandro. Work, lifting, reaching up/ down Symptoms Relieved by: Ice and heat Prior Level of Function: No issues until 2-3 weeks ago Current Level of Function: Difficulties with standing> 1h but inconsistent, difficulties workingand doing yard work Patient s Stated Goal: No pain, be able to go on my hunting backpacking trip in [place] in April. Outcome Measures Neck Disability Index: Score 16= 32% Objective CERVICAL SPINE Observation: Thoracic kyphosis, rounded shoulders and forward head with increased cervical lordosis UE AROM: WNL, good shoulder mobility Date Recorded: 03/06/24 Cervical AROM Percentage Flexion (flex) 54 Extension (ext) 60 Right side bending (SBR) 34 Left side bending (SBL) 30 Right rotation (rotR) 65 Left rotation (rotL) 70 Cervical Strength Date 03/06/2024 /5 Flexion 5 Extension 5 Lat Flexion R 5 Lat Flexion L 5 Rotation R 4+ Rotation L 4+ Upper Extremity Strength (*pain) Date 03/06/2024 R L Shoulder Flexion 5/5 5/5 Shoulder ABD 5/5 5/5 Shoulder ER 4+/5 4+/5 Shoulder IR 5/5 5/5 Elbow Flex 5/5 5/5 Elbow Ext 5-/5 5-/5 Wrist Flex 5/5 5/5 Wrist Ext 5/5 5/5 Scapular strength 4/5 4/5 NT = not tested Deep Neck Flexor (DNF) Endurance Test= 14 seconds. Joint mobility: Decreased thoracic mobility with kyphosis Palpation: No tenderness at palpation, but tightness noted in periscapular region Flexibility: WNL, slightly decreased pectoral flexibility Assessment Cortney is a 68 y.o. patient with chief complaint of upper thoracic and periscapular pain, bilateral, who presents with signs and symptoms consistent with decreased cervical and scapular stabilization strength and endurance, decreased posture. The patient would benefit from skilled physical therapy to address decreased strength, decreased endurance, decreased coordination, pain, and impaired functional activities. Evaluation complexity is moderate secondary to: patient has 1-2 personal factors and/or comorbidities that will affect plan of care, therapy will be addressing 3 or more elements, and clinical presentation is evolving. Body Systems Affected: musculoskeletal and neuromuscular Rehab Potential: Good Learning Preferences: demonstration, explanation, performance, and printed materials Barriers to Rehab: none Goals General/Ortho Patient will be independent with HEP. (Initiated) Start: 03/06/24 Expected End: 05/06/24 Patient will report decreased pain at 0-1/10 in upper thoracic/ cervical region to be able to lift and work above shoulder level without pain. (Initiated) Start: 03/06/24 Expected End: 05/06/24 Patient will increase strength in scapula to 4+/5 to be able to use UE safely without pain (Initiated) Start: 03/06/24 Expected End: 05/06/24 Functional Outcome Measure: Patient will improve NDI from 32 to 16% or less (Initiated) Start: 03/06/24 Expected End: 05/06/24 Patient will demonstrate proper posture and body mechanics in the clinic to return to bending and lifting safely with work activities (Initiated) Start: 03/06/24 Expected End: 05/06/24 Plan Frequency and Duration: 2/wk for 8 weeks, may reduce frequency as per patient's progression. Therapeutic Contents: Client Education, Home Exercise Program, Therapeutic exercises, Therapeutic activities, Neuro-muscular reeducation, Manual therapy and Modalities as needed. Plan for next session: Introduce MT over thoracic/ periscapular region, open book, thoracic ext as able, doorway str. and progress with cervical + scap strengthening/ stabilization. Risks and benefits were discussed with the patient and/or family, and the patient and/or family participated with the plan of care and agrees. Treatment Therapeutic Activity Therapeutic Activity 1: Educated patient on eval findings, pathology, anatomy, HEP, therapy goals and POC Therapeutic Activity 2: Supine chin tuck + head press + scap sq. + arm lengthening for postural correction and awareness Therapeutic Activity 3: Supine deep neck flexor trianing progression with hold for endurance Therapeutic Activity 4: Standing rows with cueing for proper scapular and cervical retraction Activity 4 Comment: GTB x 10 Therapeutic Activity 5: Standing pull-downs Activity 5 Comment: GTB x 10 Therapeutic Activity 6: Standing shoulder bilat ER with cueing for proper cerv + scap retraction, use wall for cueing as needed Activity 6 Comment: GTB x 10 Therapeutic Activity 7: Educated patient on proper posture, importance of sleeping position as wellfor neck/ shoulder pain Mx. Home Exercise Program: Created Time Entry Total Treatment Time Start Time: 0740 Stop Time: 0835 Time Calculation (min): 55 min PT Evaluation Time Entry PT Evaluation (Moderate) Time Entry: 30 PT Therapeutic Procedures Time Entry Therapeutic Activity Time Entry: 25 Ashley Xiong, PT documented in this [facility]08-13-2024 Telephone encounter Note* Telephone Encounter - Weston Henao MD - 03/04/2024 3:55 PM EDT Appreciate increase in intensity of pain. Treatment plan is still the same as discussed at his evaluation on 02/27/2024, initiate formal physical therapy for cervical radiculitis. No change in medications at this time. [facility] Work Phone: [phone] Miscellaneous Notes* Telephone Encounter - Weston Henao MD - 03/04/2024 3:55 PM EDT Appreciate increase in intensity of pain. Treatment plan is still the same as discussed at his evaluation on 02/27/2024, initiate formal physical therapy for cervical radiculitis. No change in medications at this time. * Telephone Encounter - Indu Dykes RN - 03/04/2024 1:20 PM EDT S: Rebekah, spoke with [facility] nurse regarding pain to bilateral leg weakness and back pain. B: Onset of symptoms/concern 03/02/24 A: endorses increase pain to in between shoulder blades and lower back constant 8/10 pain, increase 10/10 with movement. Pt endorses continued right thumb numbness. Pt endorses "feels weird to extremities, felt weak when standing at work". Pt endorses using Extra strength Tylenol three times daily. Without any relief from pain. Scheduled PT 03/06/23. Denies - bowel/bladder control, vision changes, Pt requesting further recommendations. From Dr. Henao at this time. R: Message to be sent to office for further recommendations from Dr. Henao. Home care advise given for back pain. Patient understands care advice. No further needs at this time. Patient instructed to call back with new or worsening symptoms. Reason for Disposition Back pain is a chronic symptom (recurrent or ongoing AND lasting > 4 weeks) Protocols used: Back [id number] documented in this [facility]08-13-2024 Telephone encounter Note* Telephone Encounter - Indu Dykes RN - 03/04/2024 1:20 PM EDT S: Rebekah, spoke with [facility] nurse regarding pain to bilateral leg weakness and back pain. B: Onset of symptoms/concern 03/02/24 A: endorses increase pain to in between shoulder blades and lower back constant 8/10 pain, increase 10/10 with movement. Pt endorses continued right thumb numbness. Pt endorses "feels weird to extremities, felt weak when standing at work". Pt endorses using Extra strength Tylenol three times daily. Without any relief from pain. Scheduled PT 03/06/23. Denies - bowel/bladder control, vision changes, Pt requesting further recommendations. From Dr. Henao at this time. R: Message to be sent to office for further recommendations from Dr. Henao. Home care advise given for back pain. Patient understands care advice. No further needs at this time. Patient instructed to call back with new or worsening symptoms. Reason for Disposition Back pain is a chronic symptom (recurrent or ongoing AND lasting > 4 weeks) Protocols used: Back [id number] [facility] [id number] History of Present illness Narrative* Weston Henao MD - 02/27/2024 11:15 AM EDT Images from the original note were not included. [facility] [id number] [facility] [address] [facility] [address] Dept: [phone] Dept Chief Complaint Patient presents with Follow-up Back Pain Subjective History of Present Illness: Cortney Acosta follows up today for back pain. Since the last visit on 03/30/2022, symptoms improved initially but as of recent the pain has cameback Current symptoms are tight/stiff and sharp. The pain travels to the front of his shoulder and down his arm He rates symptoms as a 0/10 at rest and a 9/10 at worst. Imaging to date: None Treatment to date: PT/OT/HEP: PCP gave him HEP the stretches have helped Ice: yes, helpful Heat: yes, helpful Medications: lidocaine. He has also used a tins unit Tylenol: yes, helpful NSAIDs: yes, Aleve/Naproxen, helpful Oral steroids: no Muscle relaxants: no Nerve medications: no Targeted injections: none Assistive devices: none Objective Visit Vitals BP (!) 157/86 Physical Exam: General: Alert, well appearing, no acute distress. Respiratory: Breathing comfortably on room air. No respiratory distress. Skin: Warm, dry, intact. No visible rashes or erythema overlying area of focused exam. Physical Exam Musculoskeletal: Cervical back: No swelling, deformity, spasms, torticollis, tenderness or bony tenderness. Pain with movement (At terminal motion) present. Decreased range of motion (Mild all planes). Back: Comments: Strength Testing Deltoid (C5) normal strength bilateral, no weakness Biceps (C5-C6) normal strength bilateral, no weakness Wrist Extensors (C6) normal strength bilateral, no weakness Triceps (C7) normal strength bilateral, no weakness Wrist Flexors (C7) normal strength bilateral, no weakness Finger Extensors (C7) normal strength bilateral, no weakness Finger Flexors (C8) normal strength bilateral, no weakness Interossei (T1) normal strength bilateral, no weakness Sensation Testing Lateral Shoulder (C5) intact to light touch bilateral, no paresthesia Thumb, Radial Wrist (C6) intact to light touch bilateral, no paresthesia Middle Finger (C7) intact to light touch bilateral, no paresthesia Pinky, Lateral Wrist (C8) intact to light touch bilateral, no paresthesia Medial Upper Arm (T1) intact to light touch bilateral, no paresthesia Axilla (T2) intact to light touch bilateral, no paresthesia External Notes No pertinent interval updates Labs No results found for: "HGBA1C" Lab Results Component Value Date CREATININE 0.77 09/17/2023 Imaging I have personally reviewed the images pertinent to the appointment today EMG/NCT None available Procedure No procedures completed today Assessment Diagnosis Plan 1. Cervical radiculitis Ambulatory referral to Physical Therapy 2. Scapular dyskinesis Ambulatory referral to Physical Therapy Plan -Discussed with the patient the nature of pain, strain, radiculitis, radiculopathy, spinal stenosisas indicated. -Discussed prior cervical imaging results with patient. -Discussed options for activity modification, maintaining a normal level of activity as tolerated, avoiding bed rest. -Discussed possible treatment modalities including PT, muscle relaxants, OTC analgesics including acetaminophen &/or NSAIDs. -Questions answered. -Written patient information provided in the AVS. -Reasons to return discussed with patient, including signs of nerve dysfunction. -We have today selected to proceed with formal physical therapy. Physical therapy will work on muscle range of motion, efficiency, endurance, strength, coordination ,balance and sequencing of neuro-muscular contractions. -Physical therapy will set up the schedule of your visits, how many times a week, and will indicatewhen follow-up is appropriate. -If the current course does not prove to be effective over the short term future, schedule a follow-up appointment to discuss and select an alternate course of therapy including possibly of injection, further imaging or surgical referral. No follow-ups on file. Weston Henao MD 02/27/2024 11:15 AM Please note that portions of this note may have been completed with voice recognition software. Documentation reviewed prior to signing but minor errors in hard tile setter may have occurred. documented in this encounterSKindred Hospital [id number] Telephone encounter Note* Telephone Encounter - Monse Ibanez RN - 02/18/2024 7:11 AM EDT S: Patient spoke with [facility] nurse regarding back pain B: Onset of symptoms/concern ongoing, was seen last week, ongoing now for 3 weeks now A: Patient states he is having upper back pain that increases with twisting and the pain shoots down into his wrists. Feels almost like a shock or sharp pain at the wrist. Denies that it is a numb feeling. Rates pain as 8/10. Has been using icy hot and tried heat last night. Has been using meloxicam and the muscle relaxer he was prescribed and tylenol about twice a day. Neck is always tense so neck has been hurting. Denies any fevers, redness or that pain increases with coughing. R: Appointment scheduled for today at 8:40am with Ilan. Insurance verified. Patient given care advice per protocol. Patient understands care advice. No further needs at this time. Patient instructed to call back with new or worsening symptoms. Reason for Disposition SEVERE back pain (e.g., excruciating, unable to do any normal activities) and not improved after pain medicine and CARE ADVICE Protocols used: Back [id number] [facility] [id number] Miscellaneous Notes* Telephone Encounter - Monse Ibanez RN - 02/18/2024 7:11 AM EDT S: Patient spoke with [facility] nurse regarding back pain B: Onset of symptoms/concern ongoing, was seen last week, ongoing now for 3 weeks now A: Patient states he is having upper back pain that increases with twisting and the pain shoots down into his wrists. Feels almost like a shock or sharp pain at the wrist. Denies that it is a numb feeling. Rates pain as 8/10. Has been using icy hot and tried heat last night. Has been using meloxicam and the muscle relaxer he was prescribed and tylenol about twice a day. Neck is always tense so neck has been hurting. Denies any fevers, redness or that pain increases with coughing. R: Appointment scheduled for today at 8:40am with Ilan. Insurance verified. Patient given care advice per protocol. Patient understands care advice. No further needs at this time. Patient instructed to call back with new or worsening symptoms. Reason for Disposition SEVERE back pain (e.g., excruciating, unable to do any normal activities) and not improved after pain medicine and CARE ADVICE Protocols used: Back [id number] documented in this encounterSKindred Hospital [id number] Evaluation + Plan note* Assessment & Plan Note - RONAN Valerio CNP - 02/13/2024 12:42 PM EDTAssociated Problem(s): Upper back pain Consistent with musculoskeletal pain. No known trauma. Continue meloxicam, start muscle relaxant and stretching exercises provided. [facility] [id number] Miscellaneous Notes* Assessment & Plan Note - RONAN Valerio CNP - 02/13/2024 12:42 PM EDTAssociated Problem(s): Upper back pain Consistent with musculoskeletal pain. No known trauma. Continue meloxicam, start muscle relaxant and stretching exercises provided. * Assessment & Plan Note - RONAN Valerio CNP - 02/13/2024 12:41 PM EDTAssociated Problem(s): Muscle spasm Consistent with upper back spasms. Mild thoracic strain. Continue meloxicam, start gentle stretching provided, muscle relaxant * Assessment & Plan Note - RONAN Valerio CNP - 02/13/2024 12:40 PM EDTAssociated Problem(s): Primary hypertension Blood pressure elevated in office today. Home blood pressure readings have been very good 120-130s/70-80s Continue to monitor blood pressure at home. Continue losartan 100 mg daily. documented in this [facility]07-24-2024 Evaluation + Plan note* Assessment & Plan Note - RONAN Valerio CNP - 02/13/2024 12:41 PM EDTAssociated Problem(s): Muscle spasm Consistent with upper back spasms. Mild thoracic strain. Continue meloxicam, start gentle stretching provided, muscle relaxant [facility] [id number] Evaluation + Plan note* Assessment & Plan Note - RONAN Valerio CNP - 02/13/2024 12:40 PM EDTAssociated Problem(s): Primary hypertension Blood pressure elevated in office today. Home blood pressure readings have been very good 120-130s/70-80s Continue to monitor blood pressure at home. Continue losartan 100 mg daily. [facility] [id number] History of Present illness Narrative* Kaitlin Torrez - 02/13/2024 11:00 AM EDT Patient was identified by name and Date of . * Ilan Tariq, HOME MANAGER - KEY BED INSTALLER - 02/13/2024 11:00 AM EDT Images from the original note were not included. 02/13/2024 Cortney Acosta (: 1955) is a 68 y.o. male , Established patient, here for evaluation of the following chief complaint(s): Back Pain ASSESSMENT/PLAN: 1. Upper back pain Assessment & Plan: Consistent with musculoskeletal pain. No known trauma. Continue meloxicam, start muscle relaxant and stretching exercises provided. 2. Muscle spasm Assessment & Plan: Consistent with upper back spasms. Mild thoracic strain. Continue meloxicam, start gentle stretching provided, muscle relaxant Orders: - tiZANidine (Zanaflex) 4 MG tablet; Take 1 tablet (4 mg) by mouth every 8 hours as needed for muscle spasms for up to 7 days., Starting Sun02/13/2024, Until Sun02/20/2024 at 2359, Normal 3. Primary hypertension Assessment & Plan: Blood pressure elevated in office today. Home blood pressure readings have been very good 120-130s/70-80s Continue to monitor blood pressure at home. Continue losartan 100 mg daily. Follow up if symptoms worsen or fail to improve. SUBJECTIVE/OBJECTIVE: HPI - Cortney Acosta (: 1955) is a 68 y.o. male , Established patient, here for the evaluation of the following chief complaint(s): Back Pain Reports having upper mid back pain worse with certain movements for the past couple weeks. Denies any chest pain or shortness of breath. Has not really taken anything for it. Has tried some stretching without significant relief. Does report that his job requires a lot of upper body movement. Hypertension-blood pressure in the office today slightly elevated. Patient brought his blood pressure readings and from home and they are very good ranging from 120-130/70-80s. Patient reports that he stopped taking the chlorthalidone after he started feeling lightheaded and dizzy and his home blood pressure readings were very low. Has not taken the chlorthalidone for several weeks. Reports that dizziness and lightheadedness subsided after stopping the medication, he has continued to take the losartan 100 mg daily Prior to Admission medications Medication Sig Start Date End Date Taking? Authorizing Provider losartan (Cozaar) 100 MG tablet Take 1 tablet (100 mg) by mouth daily. 10/18/23 Yes RONAN Valerio CNP meloxicam (Mobic) 15 MG tablet TAKE 1 TABLET BY MOUTH EVERY MORNING WITH FOOD TO REDUCE SWELLING. DO NOT TAKE WITH OTHER NSAIDS (IBUPROFEN, ADVIL, MOTRIN, ALEVE,OR NAPROXEN) 01/16/24 01/15/25 Yes Anthony Chamorro MD rosuvastatin (Crestor) 5 MG tablet Take 1 tablet (5 mg) by mouth daily. 10/18/23 04/15/24 Yes RONAN Nielsen CNP chlorthalidone (Hygroton) 25 MG tablet Take 1 tablet (25 mg) by mouth daily. Patient not taking: Reported on 02/13/2024 01/23/24 02/22/24 RONAN Valerio CNP Review of Systems Constitutional: Negative. Respiratory: Negative. Cardiovascular: Negative. Musculoskeletal: Positive for back pain. Vitals: 02/13/24 1107 02/13/24 1135 BP: (!) 168/78 (!) 166/78 Pulse: 61 Resp: 20 Temp: 36.8 C (98.2 F) TempSrc: Infrared SpO2: 98% Weight: 149 lb 9.6 oz (67.9 kg) Physical Exam Constitutional: Appearance: Normal appearance. HENT: Head: Normocephalic and atraumatic. Cardiovascular: Rate and Rhythm: Normal rate and regular rhythm. Pulses: Normal pulses. Heart sounds: Normal heart sounds. Pulmonary: Effort: Pulmonary effort is normal. Breath sounds: Normal breath sounds. Musculoskeletal: Back: Comments: Upper back pain increase with twisting Neurological: Mental Status: He is alert and oriented to person, place, and time. An electronic signature was used to authenticate this note. RONAN Lagunas CNP 02/13/2024 12:45 PM documented in this encounterSKindred Hospital [id number] Telephone encounter Note* Telephone Encounter - Devi Mckinney RN - 02/13/2024 8:25 AM EDT S: Patient called the clinical access center with complaint of mid and upper back pain B:started about 2 weeks ago A:Pt complains of moderate pain in between his shoulder blades. It can go higher on his back due totensing. He has intermittent numbness on the tip of his right thumb. He denies abdominal pain, change in bowel or bladder habits, known injury or fall, fever or dysuria. R:Appt today at 11 am with Aristeo Tariq. Pt advised to bring photo ID, insurance card, medications with them to their visit if possible. Covid questions: 1) Do you have signs or symptoms consistent with COVID-"no" 2) Have you tested positive for COVID in last 5 days-"no" Home care advise given to patient: Back Pain From Lifting or Twisting USE HEAT AFTER 48 HOURS FOR PAIN: * If pain lasts over 48 hours (2 days), put heat on the sore area. * Use a heat pack, heating pad, or warm wet washcloth. * Do this for 10 minutes three times a day.* This will help increase blood flow and improve healing. * Caution: Avoid burn. Do not sleep on a heating pad. Patient instructed to call back with worsening symptoms, concerns or questions. Reason for Disposition Numbness in an arm or hand (i.e., loss of sensation) and upper back pain Protocols used: Back [id number] [facility] HospitalKcbsob23-31-2064 Miscellaneous Notes* Telephone Encounter - Devi Mckinney RN - 02/13/2024 8:25 AM EDT S: Patient called the clinical access brusly with complaint of mid and upper back pain B:started about 2 weeks ago A:Pt complains of moderate pain in between his shoulder blades. It can go higher on his back due totensing. He has intermittent numbness on the tip of his right thumb. He denies abdominal pain, change in bowel or bladder habits, known injury or fall, fever or dysuria. R:Appt today at 11 am with Aristeo Tariq. Pt advised to bring photo ID, insurance card, medications with them to their visit if possible. Covid questions: 1) Do you have signs or symptoms consistent with COVID-"no" 2) Have you tested positive for COVID in last 5 days-"no" Home care advise given to patient: Back Pain From Lifting or Twisting USE HEAT AFTER 48 HOURS FOR PAIN: * If pain lasts over 48 hours (2 days), put heat on the sore area. * Use a heat pack, heating pad, or warm wet washcloth. * Do this for 10 minutes three times a day.* This will help increase blood flow and improve healing. * Caution: Avoid burn. Do not sleep on a heating pad. Patient instructed to call back with worsening symptoms, concerns or questions. Reason for Disposition Numbness in an arm or hand (i.e., loss of sensation) and upper back pain Protocols used: Back [id number]-NP documented in this encounterSKindred Hospital [id number] Telephone encounter Note* Telephone Encounter - Ignacio Dowell MA - 02/04/2024 2:03 PM EDT Notified by the CAC. [facility] [id number] Miscellaneous Notes* Telephone Encounter - Ignacio Dowell MA - 02/04/2024 2:03 PM EDT Notified by the CAC. * Telephone Encounter - Ignacio Dowell MA - 02/04/2024 8:44 AM EDT Anthony Chamorro MD3 days ago Since this seemed to start when he was started the chlorthalidone would recommend that he stop it for now over the weekend and see how he does follow-up with a nurse visit on the and report how he is feeling at that time. If he has worsening symptoms he is to go to the emergency room. Left a message to return call. * Telephone Encounter - Jelly Mcgarry MA - 02/01/2024 1:29 PM EDT Lm to return call * Telephone Encounter - Anthony Chamorro MD - 02/01/2024 12:01 PM EDT Since this seemed to start when he was started the chlorthalidone would recommend that he stop it for now over the weekend and see how he does follow-up with a nurse visit on the and report how he is feeling at that time. If he has worsening symptoms he is to go to the emergency room. * Telephone Encounter - Sakina Guzman RN - 02/01/2024 10:47 AM EDT S: Patient spoke with CAC nurse regarding BP concerns B: Onset of symptoms/concern 1 week A: Patient increased his BP medication about a week ago. Patient has pressure in his back,, feels there is a knot in his back, tip of his right thumb is numb near his fingernail. Patient states systolic number has never been higher then 126, diastolic lowest number was 60, current BP is 132/89 (thehighest it has been in a week). Patient is currently weak, This morning his feet felt numb, he rodehis e-bike to work two blocks away. Patient has lightheadedness, no vision concerns, no chest pain,no breathing concerns, no headache, has leg weakness. Current intermittent pain is 7/10. Patient's chlorthalidone (Hydroton) 25 mg tablets was the one that was increased. Patient took the pill initially, STOPPED taking it one day, then patient went back to taking it daily. Patient also takes losartan 100 mg daily. Patient has been using a TENS unit the past 3 days. Patient has been doing stretches throughout thedays. R: Patient has a nurse visit for 02/05/24, no appointments were available for today. Message sent to provider for follow up. Patient instructed to call back with new or worsening symptoms. Reason for Disposition Taking BP medications and feels is having side effects (e.g., impotence, cough, dizziness) Protocols used: Blood Pressure - [id number] documented in this encounterSKindred Hospital [id number] Telephone encounter Note* Telephone Encounter - Ignacio Dowell MA - 02/04/2024 8:44 AM EDT Anthony Chamorro MD3 days ago Since this seemed to start when he was started the chlorthalidone would recommend that he stop it for now over the weekend and see how he does follow-up with a nurse visit on the and report how he is feeling at that time. If he has worsening symptoms he is to go to the emergency room. Left a message to return call. [facility] [id number] Telephone encounter Note* Telephone Encounter - Jelly Mcgarry MA - 02/01/2024 1:29 PM EDT Lm to return call [facility] [id number] Miscellaneous Notes* Telephone Encounter - Jelly Mcgarry MA - 02/01/2024 1:29 PM EDT Lm to return call * Telephone Encounter - Anthony Chamorro MD - 02/01/2024 12:01 PM EDT Since this seemed to start when he was started the chlorthalidone would recommend that he stop it for now over the weekend and see how he does follow-up with a nurse visit on the and report how he is feeling at that time. If he has worsening symptoms he is to go to the emergency room. * Telephone Encounter - Sakina Guzman RN - 02/01/2024 10:47 AM EDT S: Patient spoke with CAC nurse regarding BP concerns B: Onset of symptoms/concern 1 week A: Patient increased his BP medication about a week ago. Patient has pressure in his back,, feels there is a knot in his back, tip of his right thumb is numb near his fingernail. Patient states systolic number has never been higher then 126, diastolic lowest number was 60, current BP is 132/89 (thehighest it has been in a week). Patient is currently weak, This morning his feet felt numb, he rodehis e-bike to work two blocks away. Patient has lightheadedness, no vision concerns, no chest pain,no breathing concerns, no headache, has leg weakness. Current intermittent pain is 7/10. Patient's chlorthalidone (Hydroton) 25 mg tablets was the one that was increased. Patient took the pill initially, STOPPED taking it one day, then patient went back to taking it daily. Patient also takes losartan 100 mg daily. Patient has been using a TENS unit the past 3 days. Patient has been doing stretches throughout thedays. R: Patient has a nurse visit for 02/05/24, no appointments were available for today. Message sent to provider for follow up. Patient instructed to call back with new or worsening symptoms. Reason for Disposition Taking BP medications and feels is having side effects (e.g., impotence, cough, dizziness) Protocols used: Blood Pressure - [id number] documented in this [facility]07-12-2024 Telephone encounter Note* Telephone Encounter - Anthony Chamorro MD - 02/01/2024 12:01 PM EDT Since this seemed to start when he was started the chlorthalidone would recommend that he stop it for now over the weekend and see how he does follow-up with a nurse visit on the and report how he is feeling at that time. If he has worsening symptoms he is to go to the emergency room. [facility] [id number] Telephone encounter Note* Telephone Encounter - Sakina Guzman RN - 02/01/2024 10:47 AM EDT S: Patient spoke with CAC nurse regarding BP concerns B: Onset of symptoms/concern 1 week A: Patient increased his BP medication about a week ago. Patient has pressure in his back,, feels there is a knot in his back, tip of his right thumb is numb near his fingernail. Patient states systolic number has never been higher then 126, diastolic lowest number was 60, current BP is 132/89 (thehighest it has been in a week). Patient is currently weak, This morning his feet felt numb, he rodehis e-bike to work two blocks away. Patient has lightheadedness, no vision concerns, no chest pain,no breathing concerns, no headache, has leg weakness. Current intermittent pain is 7/10. Patient's chlorthalidone (Hydroton) 25 mg tablets was the one that was increased. Patient took the pill initially, STOPPED taking it one day, then patient went back to taking it daily. Patient also takes losartan 100 mg daily. Patient has been using a TENS unit the past 3 days. Patient has been doing stretches throughout thedays. R: Patient has a nurse visit for 02/05/24, no appointments were available for today. Message sent to provider for follow up. Patient instructed to call back with new or worsening symptoms. Reason for Disposition Taking BP medications and feels is having side effects (e.g., impotence, cough, dizziness) Protocols used: Blood Pressure - [id number] [facility] [id number] Evaluation + Plan note* Assessment & Plan Note - RONAN Valerio CNP - 01/23/2024 9:47 AM EDTAssociated Problem(s): Primary hypertension Blood pressure remains above goal. 157/85 and repeat 149/89. Continue losartan 100 mg daily and added chlorthalidone 25 mg daily and recheck in 1 to 2 weeks [facility] [id number] Miscellaneous Notes* Assessment & Plan Note - RONAN Valerio CNP - 01/23/2024 9:47 AM EDTAssociated Problem(s): Primary hypertension Blood pressure remains above goal. 157/85 and repeat 149/89. Continue losartan 100 mg daily and added chlorthalidone 25 mg daily and recheck in 1 to 2 weeks * Telephone Encounter - Ignacio Dowell MA - 01/23/2024 9:44 AM EDT Med is pended and I called him and scheduled a recheck. * Telephone Encounter - Cristina Brooks - 01/23/2024 9:20 AM EDT Images from the original note were not included. Message released to patient as written. Ignacio Dowell MA ND 01/23/24 8:56 AM Note RONAN Valerio CNP24 minutes ago (8:29 AM) Blood pressure still too high. Continue losartan 100 mg daily and add chlorthalidone 25 mg daily. Return to office for blood pressure check in 1-2 weeks. Called Cortney, no answer and no vm. Patient's further questions if applicable: Cortney called back and above message was given to patient as written by provider. Patient expressed understanding. Does not appear that the medication has yetbeen sent to the pharmacy. Can a script be sent to [facility] in [place]? Thanks Were all questions from office addressed or relayed to the patient from encounter: No * Telephone Encounter - Ignacio Dowell MA - 01/23/2024 8:55 AM EDT RONAN Valerio CNP24 minutes ago (8:29 AM) Blood pressure still too high. Continue losartan 100 mg daily and add chlorthalidone 25 mg daily. Return to office for blood pressure check in 1-2 weeks. Called Cortney, no answer and no vm. * Telephone Encounter - RONAN Valerio CNP - 01/23/2024 8:28 AM EDT Blood pressure still too high. Continue losartan 100 mg daily and add chlorthalidone 25 mg daily. Return to office for blood pressure check in 1-2 weeks. * Telephone Encounter - Ignacio Dowell MA - 01/23/2024 7:54 AM EDT BP readings were 157/85 pulse 54, and 149/89 pulse 52. Patient arrived for nurse visit today and was verified by name and . Supervising provider for clinic visit Ilan Tariq CNP is taking losartan for hypertension with excellent compliance and no side effects Shortness of breath no Medication compliance yes Medication Reconciliation yes BP Medication taken prior to visit no at what time B/P Reading taken automatic Home Monitoring no Patient advised if follow up is needed, outreach will occur in 48 hours documented in this encounterSKindred Hospital [id number] Telephone encounter Note* Telephone Encounter - Ignacio Dowell MA - 01/23/2024 9:44 AM EDT Med is pended and I called him and scheduled a recheck. [facility] [id number] Telephone encounter Note* Telephone Encounter - Cristina Guy - 01/23/2024 9:20 AM EDT Images from the original note were not included. Message released to patient as written. Ignacio Dowell MA ND 01/23/24 8:56 AM Note RONAN Valerio CNP24 minutes ago (8:29 AM) Blood pressure still too high. Continue losartan 100 mg daily and add chlorthalidone 25 mg daily. Return to office for blood pressure check in 1-2 weeks. Called Cortney, no answer and no vm. Patient's further questions if applicable: Cortney called back and above message was given to patient as written by provider. Patient expressed understanding. Does not appear that the medication has yetbeen sent to the pharmacy. Can a script be sent to [facility] in [place]? Thanks Were all questions from office addressed or relayed to the patient from encounter: No [facility] HospitalMcvlnh95-08-1949 Telephone encounter Note* Telephone Encounter - Ignacio Dowell MA - 01/23/2024 8:55 AM EDT RONAN Valerio CNP24 minutes ago (8:29 AM) Blood pressure still too high. Continue losartan 100 mg daily and add chlorthalidone 25 mg daily. Return to office for blood pressure check in 1-2 weeks. Called Cortney, no answer and no vm. [facility] [id number] Telephone encounter Note* Telephone Encounter - RONAN Valerio CNP - 01/23/2024 8:28 AM EDT Blood pressure still too high. Continue losartan 100 mg daily and add chlorthalidone 25 mg daily. Return to office for blood pressure check in 1-2 weeks. [facility] [id number] Telephone encounter Note* Telephone Encounter - Ignacio Dowell MA - 01/23/2024 7:54 AM EDT BP readings were 157/85 pulse 54, and 149/89 pulse 52. Patient arrived for nurse visit today and was verified by name and . Supervising provider for clinic visit Ilan CHUN Tariq is taking losartan for hypertension with excellent compliance and no side effects Shortness of breath no Medication compliance yes Medication Reconciliation yes BP Medication taken prior to visit no at what time B/P Reading taken automatic Home Monitoring no Patient advised if follow up is needed, outreach will occur in 48 hours [facility] [id number] Evaluation + Plan note* Assessment & Plan Note - Anthony Chamorro MD - 01/16/2024 8:01 AM EDTAssociated Problem(s): Hypercholesterolemia Controlled, continue rosuvastatin 5 mg daily [facility] [id number] Evaluation + Plan note* Assessment & Plan Note - Anthony Chamorro MD - 01/16/2024 8:01 AM EDTAssociated Problem(s): Degenerative arthritis Stable, continue meloxicam 15 mg daily [facility] [id number] Evaluation + Plan note* Assessment & Plan Note - Anthony Chamorro MD - 01/16/2024 8:01 AM EDTAssociated Problem(s): Primary hypertension Blood pressure was initially elevated, recheck was improved but still high continue losartan 100 mgdaily and follow-up in 1 week for blood pressure check T [facility] [id number] Miscellaneous Notes* Assessment & Plan Note - Anthony Chamorro MD - 01/16/2024 8:01 AM EDTAssociated Problem(s): Hypercholesterolemia Controlled, continue rosuvastatin 5 mg daily * Assessment & Plan Note - Anthony Chamoror MD - 01/16/2024 8:01 AM EDT Associated Problem(s): Degenerative arthritis Stable, continue meloxicam 15 mg daily * Assessment & Plan Note - Anthony Chamorro MD - 01/16/2024 8:01 AM EDT Associated Problem(s): Primary hypertension Blood pressure was initially elevated, recheck was improved but still high continue losartan 100 mgdaily and follow-up in 1 week for blood pressure check documented in this [facility]06-26-2024 History of Present illness Narrative* Jelly Mcgarry MA - 01/16/2024 7:30 AM EDT Patient verified by last name and date of . * Anthony Chamorro MD - 01/16/2024 7:30 AM EDT Images from the original note were not included. 01/16/2024 Cortney Acosta (: 1955) is a 68 y.o. male , Established patient, here for evaluation of the following chief complaint(s): Anxiety, Hypertension, and Medication Check (6 month) ASSESSMENT/PLAN: 1. Primary hypertension Assessment & Plan: Blood pressure was initially elevated, recheck was improved but still high continue losartan 100 mgdaily and follow-up in 1 week for blood pressure check 2. Osteoarthritis of multiple joints, unspecified osteoarthritis type Assessment & Plan: Stable, continue meloxicam 15 mg daily 3. Hypercholesterolemia Assessment & Plan: Controlled, continue rosuvastatin 5 mg daily Follow up in about 6 months (around 07/17/2024). SUBJECTIVE/OBJECTIVE: EVETTE Fields comes in today for 6-month follow-up on his hypertension, arthritis and his hypercholesterolemia. Blood pressure is slightly elevated today we will recheck that prior to discharge, he says his arthritis is fairly well-controlled with his current dose of meloxicam and his cholesterol is excellent after starting his rosuvastatin 5 mg. Review of Systems Constitutional: Negative for activity change, appetite change, chills, fever and unexpected weight change. HENT: Negative for ear pain and sore throat. Respiratory: Negative for shortness of breath. Cardiovascular: Negative for chest pain and palpitations. Gastrointestinal: Negative for abdominal pain, blood in stool, constipation and diarrhea. Genitourinary: Negative for dysuria, frequency, hematuria and urgency. Musculoskeletal: Negative for arthralgias and back pain. Skin: Negative. Neurological: Negative for weakness and numbness. Psychiatric/Behavioral: Negative for dysphoric mood. The patient is not nervous/anxious. Vitals: 01/16/24 0730 01/16/24 0752 BP: (!) 155/92 (!) 148/77 Pulse: 58 (!) 49 SpO2: 95% Weight: 150 lb 6.4 oz (68.2 kg) Height: 5' 5" (1.651 m) Physical Exam Vitals and nursing note reviewed. Constitutional: General: He is not in acute distress. Appearance: Normal appearance. HENT: Right Ear: Tympanic membrane, ear canal and external ear normal. Left Ear: Tympanic membrane, ear canal and external ear normal. Mouth/Throat: Mouth: Mucous membranes are moist. Pharynx: Oropharynx is clear. Eyes: Extraocular Movements: Extraocular movements intact. Conjunctiva/sclera: Conjunctivae normal. Pupils: Pupils are equal, round, and reactive to light. Neck: Thyroid: No thyromegaly. Vascular: No carotid bruit. Cardiovascular: Rate and Rhythm: Normal rate and regular rhythm. Heart sounds: Normal heart sounds. No murmur heard. Pulmonary: Effort: Pulmonary effort is normal. Breath sounds: Normal breath sounds. Abdominal: General: Bowel sounds are normal. Palpations: Abdomen is soft. Tenderness: There is no abdominal tenderness. Musculoskeletal: General: Normal range of motion. Cervical back: Neck supple. Lymphadenopathy: Cervical: No cervical adenopathy. Skin: General: Skin is warm and dry. Neurological: General: No focal deficit present. Mental Status: He is alert and oriented to person, place, and time. Psychiatric: Mood and Affect: Mood normal. An electronic signature was used to authenticate this note. Anthony Chamorro MD 01/16/2024 8:02 AM documented in this [facility]03-28-2024 Telephone encounter Note* Telephone Encounter - Ignacio Dowell MA - 10/18/2023 9:07 AM EDT Refill pended. [facility] [id number] Miscellaneous Notes* Telephone Encounter - Ignacio Dowell MA - 10/18/2023 9:07 AM EDT Refill pended. * Telephone Encounter - Ignacio Dowell MA - 10/18/2023 9:05 AM EDT ----- Message from RONAN Valerio CNP sent at 10/18/2023 7:07 AM EDT ----- Lipid panel- total cholesterol good at 179, HDL good at 66, triglycerides good at 93, LDL good at 94. Ast and alt - normal Recommend continue rosuvastatin 5 mg daily documented in this [facility]03-28-2024 Telephone encounter Note* Telephone Encounter - Ignacio Dowell MA - 10/18/2023 9:05 AM EDT ----- Message from RONAN Valerio CNP sent at 10/18/2023 7:07 AM EDT ----- Lipid panel- total cholesterol good at 179, HDL good at 66, triglycerides good at 93, LDL good at 94. Ast and alt - normal Recommend continue rosuvastatin 5 mg daily [facility] [id number] Telephone encounter Note* Telephone Encounter - Ignacio Dowell MA - 09/18/2023 3:13 PM EST Patient is agreeable, scheduled in 4 weeks, orders and med pended, pharmacy verified. [facility] [id number] Miscellaneous Notes* Telephone Encounter - Ignacio Dowell MA - 09/18/2023 3:13 PM EST Patient is agreeable, scheduled in 4 weeks, orders and med pended, pharmacy verified. * Telephone Encounter - RONAN Valerio CNP - 09/18/2023 12:41 PM EST Betito I still recommend the rosuvastatin 5 mg daily * Telephone Encounter - Ignacio Dowell MA - 09/18/2023 11:17 AM EST He states on Sunday he ate smoked pork butt and fresh cut fries, asked if this could have been reflected on his labs and if medication is still recommended? * Telephone Encounter - Ignacio Dowell MA - 09/18/2023 11:10 AM EST ----- Message from RONAN Valerio CNP sent at 09/18/2023 7:19 AM EST ----- PSA- normal CBC- normal cell counts CMP- normal electrolytes, normal kidney and liver functioning Lipid panel- total cholesterol elevated 221, HDL good at 72, triglycerides good at 86, LDL elevatedat 130, goal for LDL is under 100. Recommend low fat, low cholesterol diet and starting rosuvastatin 5 mg daily and rechecking in 4 weeks. documented in this encounterSKindred Hospital DaytonNonudx10-99-9625 Telephone encounter Note* Telephone Encounter - RONAN Valerio CNP - 09/18/2023 12:41 PM EST Yeah I still recommend the rosuvastatin 5 mg daily [facility] HospitalNybaxv19-53-6213 Telephone encounter Note* Telephone Encounter - Ignacio Dowell MA - 09/18/2023 11:17 AM EST He states on Sunday he ate smoked pork butt and fresh cut fries, asked if this could have been reflected on his labs and if medication is still recommended? [facility] [id number] Telephone encounter Note* Telephone Encounter - Ignacio Dowell MA - 09/18/2023 11:10 AM EST ----- Message from RONAN Valerio CNP sent at 09/18/2023 7:19 AM EST ----- PSA- normal CBC- normal cell counts CMP- normal electrolytes, normal kidney and liver functioning Lipid panel- total cholesterol elevated 221, HDL good at 72, triglycerides good at 86, LDL elevatedat 130, goal for LDL is under 100. Recommend low fat, low cholesterol diet and starting rosuvastatin 5 mg daily and rechecking in 4 weeks. [facility] [id number] History of Present illness Narrative* RONAN Green CNP - 04/11/2023 1:20 PM EDT Images from the original note were not included. 04/11/2023 Cortney Acosta (: 1955) is a 67 y.o. male , Established patient, here for evaluation of the following chief complaint(s): URI ASSESSMENT/PLAN: 1. Viral URI - Educated that symptoms are most likely viral and an antibiotic is not warranted at this time. Will have him use nightly Flonase to assist with the nasal drainage. Rx printed for Azithromycin to have on standby if symptoms do not improve. - Saline nasal spray for congestion. - Encouraged increasing oral fluids to keep mucous secretions moist. - Sleep with humidified air. - Discussed signs and symptoms warranting follow up in the office- verbalized understanding. 2. Post-nasal drip - fluticasone (Flonase) 50 MCG/ACT nasal spray; Administer 2 sprays into each nostril daily. Shake gently. Before first use, prime pump. After use, clean tip and replace cap., Starting 04/11/2023,Until Di 04/10/2024, Normal Follow up for physical and fasting blood work. SUBJECTIVE/OBJECTIVE: HPI - Cortney presents today with concerns of sinus pressure and pain with nasal drainage that startedabout 3 days ago. Feels drainage going down the back of his throat. Has taken OTC Mucinex DM which has helped some. Symptoms are not worsening or improving. Took a home COVID-19 test today before coming to his appointment and it was negative. Denies loss of taste or smell. See ROS for additional information. Review of Systems Constitutional: Negative for chills and fever. HENT: Positive for rhinorrhea, sinus pressure, sinus pain and sore throat. Negative for congestion,ear discharge and ear pain. Respiratory: Positive for cough. Negative for chest tightness, shortness of breath and wheezing. Cardiovascular: Negative for chest pain. Vitals: 04/11/23 1318 BP: 124/80 Pulse: 91 Temp: 36.7 C (98 F) SpO2: 96% Weight: 146 lb (66.2 kg) Height: 5' 5" (1.651 m) Body mass index is 24.3 kg/m . Physical Exam Constitutional: General: He is not in acute distress. Appearance: He is not ill-appearing or diaphoretic. HENT: Head: Normocephalic and atraumatic. Right Ear: Tympanic membrane, ear canal and external ear normal. Left Ear: Tympanic membrane, ear canal and external ear normal. Nose: Rhinorrhea present. Rhinorrhea is clear. Right Turbinates: Not swollen. Left Turbinates: Not swollen. Right Sinus: No maxillary sinus tenderness or frontal sinus tenderness. Left Sinus: No maxillary sinus tenderness or frontal sinus tenderness. Mouth/Throat: Lips: [place]. Mouth: Mucous membranes are moist. Pharynx: Oropharynx is clear. No pharyngeal swelling, oropharyngeal exudate or posterior oropharyngeal erythema. Tonsils: No tonsillar exudate. Cardiovascular: Rate and Rhythm: Normal rate and regular rhythm. Heart sounds: Normal heart sounds. No murmur heard. No friction rub. Pulmonary: Effort: Pulmonary effort is normal. Breath sounds: No wheezing, rhonchi or rales. Lymphadenopathy: Head: Right side of head: No submandibular, tonsillar, preauricular or posterior auricular adenopathy. Left side of head: No submandibular, tonsillar, preauricular or posterior auricular adenopathy. Cervical: No cervical adenopathy. Upper Body: Right upper body: No supraclavicular adenopathy. Left upper body: No supraclavicular adenopathy. Skin: General: Skin is warm and dry. Coloration: Skin is not pale. Findings: No erythema or rash. Neurological: Mental Status: He is alert and oriented to person, place, and time. Psychiatric: Mood and Affect: Mood normal. Behavior: Behavior normal. Thought Content: Thought content normal. Judgment: Judgment normal. An electronic signature was used to authenticate this note. RONAN Green CNP 04/11/2023 1:51 PM documented in this [facility]08-30-2023 History of Present illness Narrative* Rosanne Giraldo MD - 03/21/2023 2:30 PM EDT [facility] [address] [place] [address] Dept: [phone] Dept 03/21/2023 Chief Complaint Patient presents with Follow-up 1 yeah follow up for right hip replacement Subjective: Cortney is approximately 1 year(s) out from a right total hip arthroplasty. Pain is absent. Patient has noted issues with: nothing out of the ordinary. Assistive device for ambulation: none. Pre-operative symptoms are improved. The patient is able to walk several blocks and is able to use stairs. Patient denies calf pain or unusual swelling. ED visit since surgery: No Hospital re-admit since surgery: No Complication since surgery: No Review of Systems Constitutional: Negative for activity change. HENT: Negative for congestion. Cardiovascular: Negative for leg swelling. Musculoskeletal: Positive for arthralgias, gait problem and joint swelling. Skin: Negative for wound. Neurological: Negative for weakness. Objective: BP 116/62 Ht 5' 5" (1.651 m) Wt 150 lb (68 kg) BMI 24.96 kg/m Ortho Exam Ricklooks well today and non-toxic. Gait is normal. Incision healing well. Skin otherwise is warm, dry and intact. Swelling is absent. Hip ROM is smooth and non-tender with no signs or symptoms of instability. Cortney remains neuro intact to the operative leg. No evidence of DVT seen on physical exam. The patient does not appreciate a leg length discrepancy. XRAYS: 03/21/2023 images obtained by outside radiology department independently reviewed by myself today in office. Indication: Status post right total hip arthroplasty. Exam Ordered: Radiographs taken today include an anteroposterior pelvis, an AP, and lateral view ofthe right proximal femur including the hip joint. Details of Examination: Exam show a well fixed, well positioned hip arthroplasty with no evidence of wear, osteolysis, fracture, or loosening. Impression: Status post right total hip arthroplasty, implant in good position with no abnormality. Assessment 1. Status post hip replacement, right 2. Primary osteoarthritis of right hip Plan Cortney will continue with WBAT and therapy exercises. I would like to check the patient back in 1 year(s) with a low AP pelvis and lateral of the proximal femur. He's doing great, no concerns. We reviewed signs and symptoms of common post-operative issues including infection. We reviewed the need forprophylaxis with dental or other procedures. He will call and return sooner for questions, issues, or concerns. Electronically signed by Rosanne Giraldo M.D. 03/21/2023 at 1:25 PM. documented in this [facility]01-18-2023 History of Present illness Narrative* Rosanne Giraldo MD - 08/09/2022 8:30 AM EST [facility] [address] [place] [address] Dept: [phone] Dept 08/09/2022 Chief Complaint Patient presents with Follow-up 4mo PO: Right LASHONDA DOS 02/28 Subjective: Cortney is approximately 5 month(s) out from a right total hip arthroplasty. Pain is absent. Patient has noted issues with: nothing out of the ordinary. Assistive device for ambulation: none. Pre-operative symptoms are improved. The patient is able to walk several blocks and is able to use stairs. Patient denies calf pain or unusual swelling. ED visit since surgery: No Hospital re-admit since surgery: No Complication since surgery: No Review of Systems Constitutional: Negative for activity change. HENT: Negative for congestion. Cardiovascular: Negative for leg swelling. Musculoskeletal: Positive for arthralgias, gait problem and joint swelling. Skin: Negative for wound. Neurological: Negative for weakness. Objective: Ht 5' 5" (1.651 m) Wt 150 lb (68 kg) BMI 24.96 kg/m Ortho Exam Ricklooks well today and non-toxic. Gait is normal. Incision healing well. Skin otherwise is warm, dry and intact. Swelling is absent. Hip ROM is smooth and non-tender with no signs or symptoms of instability. Cortney remains neuro intact to the operative leg. No evidence of DVT seen on physical exam. The patient does not appreciate a leg length discrepancy. XRAYS: 08/09/2022 images obtained by outside radiology department independently reviewed by myself today in office. Indication: Status post right total hip arthroplasty. Exam Ordered: Radiographs taken today include an anteroposterior pelvis, an AP, and lateral view ofthe left proximal femur including the hip joint. Details of Examination: Exam show a well fixed, well positioned hip arthroplasty with no evidence of wear, osteolysis, fracture, or loosening. Impression: Status post right total hip arthroplasty, implant in good position with no abnormality. Assessment 1. Primary osteoarthritis of right hip 2. Right hip pain 3. Status post hip replacement, right Plan Cortney will continue with WBAT and therapy exercises. I would like to check the patient back in 7 month(s) with a low AP pelvis and lateral of the proximal femur. We reviewed signs and symptoms of common post-operative issues including infection. We reviewed the need for prophylaxis with dental or other procedures. He will call and return sooner for questions, issues, or concerns. Electronically signed by Rosanne Giraldo M.D. 08/09/2022 at 8:35 AM. documented in this [facility]08-09-2022 [facility] GENERAL SURGERY [address] [facility] [address] Dept: [phone] Loc: [phone] Adult Hip and Knee Reconstruction Service Patient Name: Cortney Acosta Date of : 1955 Date: 02/28/22 Discharge Summary Admit date: 02/28/2022 Discharge date and time: 02/28/2022 Admitting Physician: Enzo Admission Diagnoses: right hip osteoarthritis Discharge Diagnoses: Same Operative Procedures: right total hip arthroplasty Indication for Admission: The patient has a history of hip osteoarthritis that has become progressively worse and the patient has elected to proceed with total hip arthroplasty. Hospital Course: The patient was admitted to the hospital on day of surgery and underwent the above procedure. Post-operatively, the patient was transferred to the orthopaedic floor. They received prophylactic intravenous antibiotics. DVT prophylaxis included SCDs, early ambulation, and ASA was started the evening of surgery. The patient was able to tolerate a regular diet and their pain was reasonably well controlled. The patient progressed well throughout the hospitalization and was deemed stable for discharge on above listed date. Disposition: stable Discharge Medications: Medication List START taking these medications aspirin 325 MG EC tablet Take 1 tablet by mouth in the morning and 1 tablet before bedtime. Take 2 times a day with food for 30 days. This is for blood clot prevention.. cefadroxil 500 MG capsule Commonly known as: DURICEF Take 1 capsule by mouth in the morning and 1 capsule before bedtime. Do all this for 7 days. docusate sodium 50 MG capsule Commonly known as: COLACE Take 2 capsules by mouth in the morning and 2 capsules before bedtime. Take 2 times a day as long as you are taking pain medicine or needed for constipation. ondansetron 4 MG disintegrating tablet Commonly known as: Zofran ODT Take 1 tablet by mouth every 8 hours as needed for Nausea or Vomiting Take as needed for nausea or vomiting. oxyCODONE 5 MG immediate release tablet Commonly known as: Roxicodone Take 1 tablet by mouth every 6 hours as needed for Pain for up to 7 days. Take every 6 hours as needed for pain. Reduce as pain becomes tolerable. Take with food and stool softener. Stop taking if you do not have pain. pantoprazole 20 MG tablet Commonly known as: Protonix Take 1 tablet by mouth in the morning. traMADol 50 MG tablet Commonly known as: ULTRAM Take 1 tablet by mouth every 6 hours as needed for Pain for up to 7 days. Take one tab every 6 hours as needed for pain CHANGE how you take these medications acetaminophen 325 MG tablet Commonly known as: TYLENOL Take 2 tablets by mouth every 6 hours as needed for Pain What changed: medication strength how much to take * meloxicam 15 MG tablet Commonly known as: Mobic Take 1 tablet by mouth in the morning. What changed: Another medication with the same name was added. Make sure you understand how and when to take each. * meloxicam 15 MG tablet Commonly known as: Mobic Take 1 tablet by mouth in the morning. Take with meal. This is for inflammation. Do not take Ibuprofen, Advil, Motrin, Aleve, Naproxen, or any other antiinflammatory (NSAID) if taking this.. What changed: You were already taking a medication with the same name, and this prescription was added. Make sure you understand how and when to take each. * This list has 2 medication(s) that are the same as other medications prescribed for you. Read the directions carefully, and ask your doctor or other care provider to review them with you. CONTINUE taking these medications hydrOXYzine HCl 25 MG tablet Commonly known as: ATARAX Take 1 tablet by mouth every 8 hours as needed for Itching losartan 50 MG tablet Commonly known as: COZAAR Take 1 tablet by mouth in the morning. STOP taking these medications ibuprofen 200 MG tablet Commonly known as: ADVIL;MOTRIN Where to Get Your Medications These medications were sent to [address] P [phone] - F [phone] [place] [id number] acetaminophen 325 MG tablet aspirin 325 MG EC tablet cefadroxil 500 MG capsule docusate sodium 50 MG capsule meloxicam 15 MG tablet ondansetron 4 MG disintegrating tablet oxyCODONE 5 MG immediate release tablet pantoprazole 20 MG tablet traMADol 50 MG tablet Patient Instructions: The patient will notify the office for any increased bleeding, drainage, or progressively worsening pain, or other concerning symptoms. They have been instructed to report to the emergency room immediately for any chest pain or shortness of breath. Activity: WBAT on the operative extremity, avoid extremes of motion DVT prophylaxis: ASA 325 mg BID x 4 weeks. Wound Care: The patient has a waterproof dressing in place. They can sh (more content not included)...[facility]08-04-2022 Hospital Discharge instructions* Discharge Instructions* Tonio Yo MD - 02/23/2022 6:31 PM EDT For pain, start with Tylenol 650 mg 4 times a day. If not adequate, add the Percocet but it may make you constipated so consider an [id number] laxative. It may make you dizzy and sedated so no driving or machinery. Good luck with your hip surgery! documented in this [facility] Work Phone: [phone] 806-802807-26-2022 History of Present illness Narrative* Yanni Stevens RN - 02/14/2022 10:00 AM EDT Labs obtained on 1st attempt with 21 gauge needle at right AC site. Patient tolerated well, site benign. documented in this [facility] Work Phone: [phone]) 689-728307-19-2022 Hospital Discharge instructions* Discharge Instructions* Yanni Stevens RN - 02/07/2022 9:12 AM EDT HOLD LOSARTAN THE MORNING OF SURGERY HOLD MELOXICAM (MOBIC) FOR 3 DAYS BEFORE SURGERY HOLD IBUPROFEN FOR 24 HOURS BEFORE SURGERY HOLD NAPROXEN, NAPROSYN, ALEVE FOR 3 DAYS BEFORE SURGERY MAY TAKE TYLENOL NEEDED FOR PAIN ARRIVE 1.5 HOURS PRIOR TO SURGERY BE AT THE HOSPITAL AT 6:00 AM Check in at registration using photo ID and insurance card Have a responsible adult that will be able to take you home and will be able to stay with you when you are home. NO FOOD AFTER MIDNIGHT THE NIGHT BEFORE SURGERY This includes candy, gum, and mints MAY have CLEAR LIQUIDS (WATER, APPLE JUICE, CRANBERRY JUICE, BLACK COFFEE, TEA, CARBONATED POP GATORADE) To drink until arrival time for surgery *(NOTE: IF YOU ARE A DIABETIC AVOID HIGH SUGAR BEVERAGES)* Wear loose comfortable clean clothing that you can go home in Leave all jewelry, contact lenses and valuables at home Only one visitor is permitted at this time Bring printed medication list with you Write the date and times of last dose DO NOT USE alcohol, recreational drugs or tobacco products for 24 hours before surgery Please write down any questions that you may have for your surgeon, anesthesiologist, Etc. [facility] shower kit and instructions given to pt. Use night before surgery and day of surgery. * Attachments The following attachments cannot be sent through Care Everywhere. * Hip Replacement: Total: General Info ([place]) * Spinal and Epidural Anesthesia: General Info ([place]) [facility]: [facility] note* Diagnosis Upper back pain- Primary documented in this encounter [facility] Work Phone: Evaluation note* Diagnosis S/P total right hip arthroplasty documented in this encounter [facility] Work Phone: Evaluation note* Diagnosis Status post hip replacement, right- Primary Status post hip replacement, right- Primary [facility]* Diagnosis Status post hip replacement, right- Primary Primary osteoarthritis of right hip [facility]* Diagnosis Status post hip replacement, right documented [facility]* Diagnosis Viral URI- Primary Acute upper respiratory infections of unspecified site Post-nasal drip Postnasal drip [facility] Mixed hyperlipidemia- Primary [facility]* Diagnosis Mixed hyperlipidemia [facility] Diagnosis Primary hypertension- Primary Unspecified essential hypertension Osteoarthritis of multiple joints, unspecified osteoarthritis type Hypercholesterolemia Pure hypercholesterolemia [facility] Diagnosis Primary hypertension- Primary Unspecified essential hypertension [facility] Diagnosis Upper back pain- Primary Unspecified backache Muscle spasm Spasm of muscle Primary hypertension Unspecified essential hypertension [facility] Diagnosis Cervical radiculitis- Primary Brachial neuritis or radiculitis nos Scapular dyskinesis Lack of coordination [facility] Diagnosis Cervical radiculitis Brachial neuritis or radiculitis nos Scapular dyskinesis Lack of coordination [facility] Diagnosis RLQ abdominal pain- Primary Abdominal pain, right lower quadrant [facility] Diagnosis Cervical radiculitis- Primary Brachial neuritis or radiculitis nos Scapular dyskinesis Lack of coordination [facility] Diagnosis Right lower quadrant abdominal pain- Primary [facility] Diagnosis Cervical radiculitis- Primary Brachial neuritis or radiculitis nos Scapular dyskinesis Lack of coordination [facility] Diagnosis Spondylolisthesis of lumbosacral region- Primary Lumbar pain Lumbago [facility] Diagnosis Lumbar pain Lumbago [facility] Diagnosis Midline low back pain without sciatica, unspecified chronicity- Primary [facility] Diagnosis Cervical radiculitis- Primary Brachial neuritis or radiculitis nos Scapular dyskinesis Lack of coordination [facility] Diagnosis Cervical radiculitis- Primary Brachial neuritis or radiculitis nos Scapular dyskinesis Lack of coordination [facility] Diagnosis Acute exacerbation of chronic low back pain- Primary [facility] Diagnosis Acute midline low back pain without sciatica- Primary Weakness of both lower extremities Anxiety Anxiety state, unspecified [facility] Diagnosis Mixed hyperlipidemia [facility]* Diagnosis Spinal stenosis of lumbosacral region- Primary Pre-op examination Weakness of both lower extremities Primary hypertension Unspecified essential hypertension Anxiety Anxiety state, unspecified Refused influenza vaccine [facility]* Diagnosis Routine general medical examination at health care facility- Primary Routine general medical examination at a health care facility Screening for deficiency anemia Screening for other and unspecified deficiency anemia Screening for cholesterol level Screening for prostate cancer Special screening for malignant neoplasm of prostate Screening for diabetes mellitus Primary hypertension Unspecified essential hypertension S/P total right hip arthroplasty Primary hypertension- Primary Unspecified essential hypertension Osteoarthritis of multiple joints, unspecified osteoarthritis type Hypercholesterolemia Pure hypercholesterolemia Primary hypertension- Primary Unspecified essential hypertension Upper back pain- Primary Unspecified backache Muscle spasm Spasm of muscle Primary hypertension Unspecified essential hypertension Upper back pain- Primary Unspecified backache Primary hypertension Unspecified essential hypertension Acute midline low back pain without sciatica- Primary Weakness of both lower extremities Anxiety Anxiety state, unspecified Spinal stenosis of lumbosacral region- Primary Pre-op examination Weakness of both lower extremities Primary hypertension Unspecified essential hypertension Anxiety Anxiety state, unspecified Refused influenza vaccine Idiopathic pyuria- Primary Bladder wall thickening Other specified disorder of bladder [facility] Diagnosis Routine general medical examination at health care facility- Primary Routine general medical examination at a health care facility Screening for deficiency anemia Screening for other and unspecified deficiency anemia Screening for cholesterol level Screening for prostate cancer Special screening for malignant neoplasm of prostate Screening for diabetes mellitus Primary hypertension Unspecified essential hypertension S/P total right hip arthroplasty Primary hypertension- Primary Unspecified essential hypertension Osteoarthritis of multiple joints, unspecified osteoarthritis type Hypercholesterolemia Pure hypercholesterolemia Primary hypertension- Primary Unspecified essential hypertension Upper back pain- Primary Unspecified backache Muscle spasm Spasm of muscle Primary hypertension Unspecified essential hypertension Upper back pain- Primary Unspecified backache Primary hypertension Unspecified essential hypertension Acute midline low back pain without sciatica- Primary Weakness of both lower extremities Anxiety Anxiety state, unspecified Spinal stenosis of lumbosacral region- Primary Pre-op examination Weakness of both lower extremities Primary hypertension Unspecified essential hypertension Anxiety Anxiety state, unspecified Refused influenza vaccine Spinal stenosis of lumbosacral region- Primary Renal cyst Unspecified congenital cystic kidney disease [facility] Diagnosis S/P total right hip arthroplasty- Primary [facility]* Diagnosis Primary osteoarthritis of right hip- Primary Right hip pain Pain in joint, pelvic region and thigh Status post hip replacement, right [facility]* Diagnosis S/P total right hip arthroplasty [facility]* Diagnosis Routine general medical examination at health care facility- Primary Routine general medical examination at a health care facility Screening for deficiency anemia Screening for other and unspecified deficiency anemia Screening for cholesterol level Screening for prostate cancer Special screening for malignant neoplasm of prostate Screening for diabetes mellitus Primary hypertension Unspecified essential hypertension S/P total right hip arthroplasty Primary hypertension- Primary Unspecified essential hypertension Osteoarthritis of multiple joints, unspecified osteoarthritis type Hypercholesterolemia Pure hypercholesterolemia Primary hypertension- Primary Unspecified essential hypertension Upper back pain- Primary Unspecified backache Muscle spasm Spasm of muscle Primary hypertension Unspecified essential hypertension Upper back pain- Primary Unspecified backache Primary hypertension Unspecified essential hypertension Acute midline low back pain without sciatica- Primary Weakness of both lower extremities Anxiety Anxiety state, unspecified Spinal stenosis of lumbosacral region- Primary Pre-op examination Weakness of both lower extremities Primary hypertension Unspecified essential hypertension Anxiety Anxiety state, unspecified Refused influenza vaccine Spinal stenosis of lumbosacral region- Primary Renal cyst Unspecified congenital cystic kidney disease Influenza A- Primary Influenza with other respiratory manifestations Viral URI with cough Rib pain on right side documented in [place] encounter [facility] [facility] Diagnosis Routine general medical examination at health care facility- Primary Routine general medical examination at a health care facility Screening for deficiency anemia Screening for other and unspecified deficiency anemia Screening for cholesterol level Screening for prostate cancer Special screening for malignant neoplasm of prostate Screening for diabetes mellitus Primary hypertension Unspecified essential hypertension S/P total right hip arthroplasty Primary hypertension- Primary Unspecified essential hypertension Osteoarthritis of multiple joints, unspecified osteoarthritis type Hypercholesterolemia Pure hypercholesterolemia Primary hypertension- Primary Unspecified essential hypertension Upper back pain- Primary Unspecified backache Muscle spasm Spasm of muscle Primary hypertension Unspecified essential hypertension Upper back pain- Primary Unspecified backache Primary hypertension Unspecified essential hypertension Acute midline low back pain without sciatica- Primary Weakness of both lower extremities Anxiety Anxiety state, unspecified Spinal stenosis of lumbosacral region- Primary Pre-op examination Weakness of both lower extremities Primary hypertension Unspecified essential hypertension Anxiety Anxiety state, unspecified Refused influenza vaccine Spinal stenosis of lumbosacral region- Primary Renal cyst Unspecified congenital cystic kidney disease Influenza A- Primary Influenza with other respiratory manifestations Viral URI with cough Rib pain on right side Shortness of breath- Primary Bronchospasm Acute bronchospasm [facility] Diagnosis Routine general medical examination at health care facility- Primary Routine general medical examination at a health care facility Screening for deficiency anemia Screening for other and unspecified deficiency anemia Screening for cholesterol level Screening for prostate cancer Special screening for malignant neoplasm of prostate Screening for diabetes mellitus Primary hypertension Unspecified essential hypertension S/P total right hip arthroplasty Primary hypertension- Primary Unspecified essential hypertension Osteoarthritis of multiple joints, unspecified osteoarthritis type Hypercholesterolemia Pure hypercholesterolemia Primary hypertension- Primary Unspecified essential hypertension Upper back pain- Primary Unspecified backache Muscle spasm Spasm of muscle Primary hypertension Unspecified essential hypertension Upper back pain- Primary Unspecified backache Primary hypertension Unspecified essential hypertension Acute midline low back pain without sciatica- Primary Weakness of both lower extremities Anxiety Anxiety state, unspecified Spinal stenosis of lumbosacral region- Primary Pre-op examination Weakness of both lower extremities Primary hypertension Unspecified essential hypertension Anxiety Anxiety state, unspecified Refused influenza vaccine Spinal stenosis of lumbosacral region- Primary Renal cyst Unspecified congenital cystic kidney disease Influenza A- Primary Influenza with other respiratory manifestations Viral URI with cough Rib pain on right side Primary hypertension Unspecified essential hypertension documented in [facility]* Diagnosis Routine general medical examination at health care facility- Primary Routine general medical examination at a health care facility Screening for deficiency anemia Screening for other and unspecified deficiency anemia Screening for cholesterol level Screening for prostate cancer Special screening for malignant neoplasm of prostate Screening for diabetes mellitus Primary hypertension Unspecified essential hypertension S/P total right hip arthroplasty Primary hypertension- Primary Unspecified essential hypertension Osteoarthritis of multiple joints, unspecified osteoarthritis type Hypercholesterolemia Pure hypercholesterolemia Primary hypertension- Primary Unspecified essential hypertension Upper back pain- Primary Unspecified backache Muscle spasm Spasm of muscle Primary hypertension Unspecified essential hypertension Upper back pain- Primary Unspecified backache Primary hypertension Unspecified essential hypertension Acute midline low back pain without sciatica- Primary Weakness of both lower extremities Anxiety Anxiety state, unspecified Spinal stenosis of lumbosacral region- Primary Pre-op examination Weakness of both lower extremities Primary hypertension Unspecified essential hypertension Anxiety Anxiety state, unspecified Refused influenza vaccine Spinal stenosis of lumbosacral region- Primary Renal cyst Unspecified congenital cystic kidney disease Influenza A- Primary Influenza with other respiratory manifestations Viral URI with cough Rib pain on right side Chest pain, unspecified type- Primary documented in [facility]* Diagnosis Routine general medical examination at health care facility- Primary Routine general medical examination at a health care facility Screening for deficiency anemia Screening for other and unspecified deficiency anemia Screening for cholesterol level Screening for prostate cancer Special screening for malignant neoplasm of prostate Screening for diabetes mellitus Primary hypertension Unspecified essential hypertension S/P total right hip arthroplasty Primary hypertension- Primary Unspecified essential hypertension Osteoarthritis of multiple joints, unspecified osteoarthritis type Hypercholesterolemia Pure hypercholesterolemia Primary hypertension- Primary Unspecified essential hypertension Upper back pain- Primary Unspecified backache Muscle spasm Spasm of muscle Primary hypertension Unspecified essential hypertension Upper back pain- Primary Unspecified backache Primary hypertension Unspecified essential hypertension Acute midline low back pain without sciatica- Primary Weakness of both lower extremities Anxiety Anxiety state, unspecified Spinal stenosis of lumbosacral region- Primary Pre-op examination Weakness of both lower extremities Primary hypertension Unspecified essential hypertension Anxiety Anxiety state, unspecified Refused influenza vaccine Spinal stenosis of lumbosacral region- Primary Renal cyst Unspecified congenital cystic kidney disease Influenza A- Primary Influenza with other respiratory manifestations Viral URI with cough Rib pain on right side Chest pain, unspecified type- Primary Primary hypertension Unspecified essential hypertension Hypercholesterolemia Pure hypercholesterolemia Anxiety Anxiety state, unspecified documented in this encounter [facility]* Diagnosis Routine general medical examination at health care facility- Primary Routine general medical examination at a health care facility Screening for deficiency anemia Screening for other and unspecified deficiency anemia Screening for cholesterol level Screening for prostate cancer Special screening for malignant neoplasm of prostate Screening for diabetes mellitus Primary hypertension Unspecified essential hypertension S/P total right hip arthroplasty Primary hypertension- Primary Unspecified essential hypertension Osteoarthritis of multiple joints, unspecified osteoarthritis type Hypercholesterolemia Pure hypercholesterolemia Primary hypertension- Primary Unspecified essential hypertension Upper back pain- Primary Unspecified backache Muscle spasm Spasm of muscle Primary hypertension Unspecified essential hypertension Upper back pain- Primary Unspecified backache Primary hypertension Unspecified essential hypertension Acute midline low back pain without sciatica- Primary Weakness of both lower extremities Anxiety Anxiety state, unspecified Spinal stenosis of lumbosacral region- Primary Pre-op examination Weakness of both lower extremities Primary hypertension Unspecified essential hypertension Anxiety Anxiety state, unspecified Refused influenza vaccine Spinal stenosis of lumbosacral region- Primary Renal cyst Unspecified congenital cystic kidney disease Primary hypertension- Primary Unspecified essential hypertension Hypercholesterolemia Pure hypercholesterolemia Anxiety Anxiety state, unspecified Routine general medical examination at health care facility Routine general medical examination at a health care facility Spinal stenosis of lumbosacral region Osteoarthritis of multiple joints, unspecified osteoarthritis type Chronic midline thoracic back pain- Primary documented in this encounter [facility]* Diagnosis Routine general medical examination at health care facility- Primary Routine general medical examination at a health care facility Screening for deficiency anemia Screening for other and unspecified deficiency anemia Screening for cholesterol level Screening for prostate cancer Special screening for malignant neoplasm of prostate Screening for diabetes mellitus Primary hypertension Unspecified essential hypertension S/P total right hip arthroplasty Primary hypertension- Primary Unspecified essential hypertension Osteoarthritis of multiple joints, unspecified osteoarthritis type Hypercholesterolemia Pure hypercholesterolemia Primary hypertension- Primary Unspecified essential hypertension Upper back pain- Primary Unspecified backache Muscle spasm Spasm of muscle Primary hypertension Unspecified essential hypertension Upper back pain- Primary Unspecified backache Primary hypertension Unspecified essential hypertension Acute midline low back pain without sciatica- Primary Weakness of both lower extremities Anxiety Anxiety state, unspecified Spinal stenosis of lumbosacral region- Primary Pre-op examination Weakness of both lower extremities Primary hypertension Unspecified essential hypertension Anxiety Anxiety state, unspecified Refused influenza vaccine Spinal stenosis of lumbosacral region- Primary Renal cyst Unspecified congenital cystic kidney disease Primary hypertension- Primary Unspecified essential hypertension Hypercholesterolemia Pure hypercholesterolemia Anxiety Anxiety state, unspecified Routine general medical examination at health care facility Routine general medical examination at a [facility] care facility Spinal stenosis of lumbosacral region Osteoarthritis of multiple joints, unspecified osteoarthritis type Chronic midline thoracic back pain- Primary documented in this encounter [facility]* Diagnosis Routine general medical examination at health care facility- Primary Routine general medical examination at a health care facility Screening for deficiency anemia Screening for other and unspecified deficiency anemia Screening for cholesterol level Screening for prostate cancer Special screening for malignant neoplasm of prostate Screening for diabetes mellitus Primary hypertension Unspecified essential hypertension S/P total right hip arthroplasty Primary hypertension- Primary Unspecified essential hypertension Osteoarthritis of multiple joints, unspecified osteoarthritis type Hypercholesterolemia Pure hypercholesterolemia Primary hypertension- Primary Unspecified essential hypertension Upper back pain- Primary Unspecified backache Muscle spasm Spasm of muscle Primary hypertension Unspecified essential hypertension Upper back pain- Primary Unspecified backache Primary hypertension Unspecified essential hypertension Acute midline low back pain without sciatica- Primary Weakness of both lower extremities Anxiety Anxiety state, unspecified Spinal stenosis of lumbosacral region- Primary Pre-op examination Weakness of both lower extremities Primary hypertension Unspecified essential hypertension Anxiety Anxiety state, unspecified Refused influenza vaccine Spinal stenosis of lumbosacral region- Primary Renal cyst Unspecified congenital cystic kidney disease Primary hypertension- Primary Unspecified essential hypertension Hypercholesterolemia Pure hypercholesterolemia Anxiety Anxiety state, unspecified Routine general medical examination at health care facility Routine general medical examination at a [facility] care facility Spinal stenosis of lumbosacral region Osteoarthritis of multiple joints, unspecified osteoarthritis type Chronic midline thoracic back pain- Primary Myalgia- Primary Unspecified myalgia and myositis Pain of both shoulder joints Chronic fatigue Other malaise and fatigue documented in this encounter [facility]* Diagnosis Routine general medical examination at health care facility- Primary Routine general medical examination at a health care facility Screening for deficiency anemia Screening for other and unspecified deficiency anemia Screening for cholesterol level Screening for prostate cancer Special screening for malignant neoplasm of prostate Screening for diabetes mellitus Primary hypertension Unspecified essential hypertension S/P total right hip arthroplasty Primary hypertension- Primary Unspecified essential hypertension Osteoarthritis of multiple joints, unspecified osteoarthritis type Hypercholesterolemia Pure hypercholesterolemia Primary hypertension- Primary Unspecified essential hypertension Upper back pain- Primary Unspecified backache Muscle spasm Spasm of muscle Primary hypertension Unspecified essential hypertension Upper back pain- Primary Unspecified backache Primary hypertension Unspecified essential hypertension Acute midline low back pain without sciatica- Primary Weakness of both lower extremities Anxiety Anxiety state, unspecified Spinal stenosis of lumbosacral region- Primary Pre-op examination Weakness of both lower extremities Primary hypertension Unspecified essential hypertension Anxiety Anxiety state, unspecified Refused influenza vaccine Spinal stenosis of lumbosacral region- Primary Renal cyst Unspecified congenital cystic kidney disease Primary hypertension- Primary Unspecified essential hypertension Hypercholesterolemia Pure hypercholesterolemia Anxiety Anxiety state, unspecified Routine general medical examination at health care facility Routine general medical examination at a health care facility Spinal stenosis of lumbosacral region Osteoarthritis of multiple joints, unspecified osteoarthritis type Myalgia- Primary Unspecified myalgia and myositis Pain of both shoulder joints Chronic fatigue Other malaise and fatigue documented in this encounter [facility]* Diagnosis Routine general medical examination at health care facility- Primary Routine general medical examination at a health care facility Screening for deficiency anemia Screening for other and unspecified deficiency anemia Screening for cholesterol level Screening for prostate cancer Special screening for malignant neoplasm of prostate Screening for diabetes mellitus Primary hypertension Unspecified essential hypertension S/P total right hip arthroplasty Primary hypertension- Primary Unspecified essential hypertension Osteoarthritis of multiple joints, unspecified osteoarthritis type Hypercholesterolemia Pure hypercholesterolemia Primary hypertension- Primary Unspecified essential hypertension Upper back pain- Primary Unspecified backache Muscle spasm Spasm of muscle Primary hypertension Unspecified essential hypertension Upper back pain- Primary Unspecified backache Primary hypertension Unspecified essential hypertension Acute midline low back pain without sciatica- Primary Weakness of both lower extremities Anxiety Anxiety state, unspecified Spinal stenosis of lumbosacral region- Primary Pre-op examination Weakness of both lower extremities Primary hypertension Unspecified essential hypertension Anxiety Anxiety state, unspecified Refused influenza vaccine Spinal stenosis of lumbosacral region- Primary Renal cyst Unspecified congenital cystic kidney disease Primary hypertension- Primary Unspecified essential hypertension Hypercholesterolemia Pure hypercholesterolemia Anxiety Anxiety state, unspecified Routine general medical examination at health care facility Routine general medical examination at a [facility] care [facility] Spinal stenosis of lumbosacral region Osteoarthritis of multiple joints, unspecified osteoarthritis type Myalgia- Primary Unspecified myalgia and myositis Pain of both shoulder joints Chronic fatigue Other malaise and fatigue DDD (degenerative disc disease), 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 documented in this encounter [facility]* Diagnosis Routine general medical examination at health care facility- Primary Routine general medical examination at a health care facility Screening for deficiency anemia Screening for other and unspecified deficiency anemia Screening for cholesterol level Screening for prostate cancer Special screening for malignant neoplasm of prostate Screening for diabetes mellitus Primary hypertension Unspecified essential hypertension S/P total right hip arthroplasty Primary hypertension- Primary Unspecified essential hypertension Osteoarthritis of multiple joints, unspecified osteoarthritis type Hypercholesterolemia Pure hypercholesterolemia Primary hypertension- Primary Unspecified essential hypertension Upper back pain- Primary Unspecified backache Muscle spasm Spasm of muscle Primary hypertension Unspecified essential hypertension Upper back pain- Primary Unspecified backache Primary hypertension Unspecified essential hypertension Acute midline low back pain without sciatica- Primary Weakness of both lower extremities Anxiety Anxiety state, unspecified Spinal stenosis of lumbosacral region- Primary Pre-op examination Weakness of both lower extremities Primary hypertension Unspecified essential hypertension Anxiety Anxiety state, unspecified Refused influenza vaccine Spinal stenosis of lumbosacral region- Primary Renal cyst Unspecified congenital cystic kidney disease Primary hypertension- Primary Unspecified essential hypertension Hypercholesterolemia Pure hypercholesterolemia Anxiety Anxiety state, unspecified Routine general medical examination at health care facility Routine general medical examination at a [facility] care facility Spinal stenosis of lumbosacral region Osteoarthritis of multiple joints, unspecified osteoarthritis type Myalgia- Primary Unspecified myalgia and myositis Pain of both shoulder joints Chronic fatigue Other malaise and fatigue RUQ pain- Primary Abdominal pain, right upper quadrant Primary hypertension Unspecified essential hypertension Myalgia Unspecified myalgia and myositis documented in this encounter [facility]* Diagnosis Routine general medical examination at health care facility- Primary Routine general medical examination at a health care facility Screening for deficiency anemia Screening for other and unspecified deficiency anemia Screening for cholesterol level Screening for prostate cancer Special screening for malignant neoplasm of prostate Screening for diabetes mellitus Primary hypertension Unspecified essential hypertension S/P total right hip arthroplasty Primary hypertension- Primary Unspecified essential hypertension Osteoarthritis of multiple joints, unspecified osteoarthritis type Hypercholesterolemia Pure hypercholesterolemia Primary hypertension- Primary Unspecified essential hypertension Upper back pain- Primary Unspecified backache Muscle spasm Spasm of muscle Primary hypertension Unspecified essential hypertension Upper back pain- Primary Unspecified backache Primary hypertension Unspecified essential hypertension Acute midline low back pain without sciatica- Primary Weakness of both lower extremities Anxiety Anxiety state, unspecified Spinal stenosis of lumbosacral region- Primary Pre-op examination Weakness of both lower extremities Primary hypertension Unspecified essential hypertension Anxiety Anxiety state, unspecified Refused influenza vaccine Spinal stenosis of lumbosacral region- Primary Renal cyst Unspecified congenital cystic kidney disease Primary hypertension- Primary Unspecified essential hypertension Hypercholesterolemia Pure hypercholesterolemia Anxiety Anxiety state, unspecified Routine general medical examination at health care facility Routine general medical examination at a health care facility Spinal stenosis of lumbosacral region Osteoarthritis of multiple joints, unspecified osteoarthritis type Myalgia- Primary Unspecified myalgia and myositis Pain of both shoulder joints Chronic fatigue Other malaise and fatigue RUQ pain- Primary Abdominal pain, right upper quadrant Primary hypertension Unspecified essential hypertension Myalgia Unspecified myalgia and myositis documented in this encounter [facility] noteNo assessment information availableWTr[facility] Work Phone: Evaluation note* Diagnosis Routine general medical examination at health care facility- Primary Routine general medical examination at a health care facility Screening for deficiency anemia Screening for other and unspecified deficiency anemia Screening for cholesterol level Screening for prostate cancer Special screening for malignant neoplasm of prostate Screening for diabetes mellitus Primary hypertension Unspecified essential hypertension S/P total right hip arthroplasty Primary hypertension- Primary Unspecified essential hypertension Osteoarthritis of multiple joints, unspecified osteoarthritis type Hypercholesterolemia Pure hypercholesterolemia Primary hypertension- Primary Unspecified essential hypertension Upper back pain- Primary Unspecified backache Muscle spasm Spasm of muscle Primary hypertension Unspecified essential hypertension Upper back pain- Primary Unspecified backache Primary hypertension Unspecified essential hypertension Acute midline low back pain without sciatica- Primary Weakness of both lower extremities Anxiety Anxiety state, unspecified Spinal stenosis of lumbosacral region- Primary Pre-op examination Weakness of both lower extremities Primary hypertension Unspecified essential hypertension Anxiety Anxiety state, unspecified Refused influenza vaccine Spinal stenosis of lumbosacral region- Primary Renal cyst Unspecified congenital cystic kidney disease Primary hypertension- Primary Unspecified essential hypertension Hypercholesterolemia Pure hypercholesterolemia Anxiety Anxiety state, unspecified Routine general medical examination at health care facility Routine general medical examination at a [facility] care facility Spinal stenosis of lumbosacral region Osteoarthritis of multiple joints, unspecified osteoarthritis type Myalgia- Primary Unspecified myalgia and myositis Pain of both shoulder joints Chronic fatigue Other malaise and fatigue RUQ pain- Primary Abdominal pain, right upper quadrant Primary hypertension Unspecified essential hypertension Myalgia Unspecified myalgia and myositis Chronic cholecystitis- Primary Chronic cholecystitis documented in this encounter [facility]* Diagnosis Routine general medical examination at health care facility- Primary Routine general medical examination at a health care facility Screening for deficiency anemia Screening for other and unspecified deficiency anemia Screening for cholesterol level Screening for prostate cancer Special screening for malignant neoplasm of prostate Screening for diabetes mellitus Primary hypertension Unspecified essential hypertension S/P total right hip arthroplasty Primary hypertension- Primary Unspecified essential hypertension Osteoarthritis of multiple joints, unspecified osteoarthritis type Hypercholesterolemia Pure hypercholesterolemia Primary hypertension- Primary Unspecified essential hypertension Upper back pain- Primary Unspecified backache Muscle spasm Spasm of muscle Primary hypertension Unspecified essential hypertension Upper back pain- Primary Unspecified backache Primary hypertension Unspecified essential hypertension Acute midline low back pain without sciatica- Primary Weakness of both lower extremities Anxiety Anxiety state, unspecified Spinal stenosis of lumbosacral region- Primary Pre-op examination Weakness of both lower extremities Primary hypertension Unspecified essential hypertension Anxiety Anxiety state, unspecified Refused influenza vaccine Spinal stenosis of lumbosacral region- Primary Renal cyst Unspecified congenital cystic kidney disease Primary hypertension- Primary Unspecified essential hypertension Hypercholesterolemia Pure hypercholesterolemia Anxiety Anxiety state, unspecified Routine general medical examination at health care facility Routine general medical examination at a [facility] care facility Spinal stenosis of lumbosacral region Osteoarthritis of multiple joints, unspecified osteoarthritis type Myalgia- Primary Unspecified myalgia and myositis Pain of both shoulder joints Chronic fatigue Other malaise and fatigue RUQ pain- Primary Abdominal pain, right upper quadrant Primary hypertension Unspecified essential hypertension Myalgia Unspecified myalgia and myositis Cholecystitis Cholecystitis, unspecified Abnormal biliary HIDA scan Chronic cholecystitis [facility] Diagnosis Routine general medical examination at health care facility- Primary Routine general medical examination at a health care facility Screening for deficiency anemia Screening for other and unspecified deficiency anemia Screening for cholesterol level Screening for prostate cancer Special screening for malignant neoplasm of prostate Screening for diabetes mellitus Primary hypertension Unspecified essential hypertension S/P total right hip arthroplasty Primary hypertension- Primary Unspecified essential hypertension Osteoarthritis of multiple joints, unspecified osteoarthritis type Hypercholesterolemia Pure hypercholesterolemia Primary hypertension- Primary Unspecified essential hypertension Upper back pain- Primary Unspecified backache Muscle spasm Spasm of muscle Primary hypertension Unspecified essential hypertension Upper back pain- Primary Unspecified backache Primary hypertension Unspecified essential hypertension Acute midline low back pain without sciatica- Primary Weakness of both lower extremities Anxiety Anxiety state, unspecified Spinal stenosis of lumbosacral region- Primary Pre-op examination Weakness of both lower extremities Primary hypertension Unspecified essential hypertension Anxiety Anxiety state, unspecified Refused influenza vaccine Spinal stenosis of lumbosacral region- Primary Renal cyst Unspecified congenital cystic kidney disease Primary hypertension- Primary Unspecified essential hypertension Hypercholesterolemia Pure hypercholesterolemia Anxiety Anxiety state, unspecified Routine general medical examination at health care facility Routine general medical examination at a health care facility Spinal stenosis of lumbosacral region Osteoarthritis of multiple joints, unspecified osteoarthritis type Myalgia- Primary Unspecified myalgia and myositis Pain of both shoulder joints Chronic fatigue Other malaise and fatigue RUQ pain- Primary Abdominal pain, right upper quadrant Primary hypertension Unspecified essential hypertension Myalgia Unspecified myalgia and myositis Cholecystitis- Primary Cholecystitis, unspecified Chronic cholecystitis documented [facility] Diagnosis Routine general medical examination at health care facility- Primary Routine general medical examination at a health care facility Screening for deficiency anemia Screening for other and unspecified deficiency anemia Screening for cholesterol level Screening for prostate cancer Special screening for malignant neoplasm of prostate Screening for diabetes mellitus Primary hypertension Unspecified essential hypertension S/P total right hip arthroplasty Primary hypertension- Primary Unspecified essential hypertension Osteoarthritis of multiple joints, unspecified osteoarthritis type Hypercholesterolemia Pure hypercholesterolemia Primary hypertension- Primary Unspecified essential hypertension Upper back pain- Primary Unspecified backache Muscle spasm Spasm of muscle Primary hypertension Unspecified essential hypertension Upper back pain- Primary Unspecified backache Primary hypertension Unspecified essential hypertension Acute midline low back pain without sciatica- Primary Weakness of both lower extremities Anxiety Anxiety state, unspecified Spinal stenosis of lumbosacral region- Primary Pre-op examination Weakness of both lower extremities Primary hypertension Unspecified essential hypertension Anxiety Anxiety state, unspecified Refused influenza vaccine Spinal stenosis of lumbosacral region- Primary Renal cyst Unspecified congenital cystic kidney disease Primary hypertension- Primary Unspecified essential hypertension Hypercholesterolemia Pure hypercholesterolemia Anxiety Anxiety state, unspecified Routine general medical examination at [facility] care facility Routine general medical examination at [facility] Spinal stenosis of lumbosacral region Osteoarthritis of multiple joints, unspecified osteoarthritis type Myalgia- Primary Unspecified myalgia and myositis Pain of both shoulder joints Chronic fatigue Other malaise and fatigue RUQ pain- Primary Abdominal pain, right upper quadrant Primary hypertension Unspecified essential hypertension Myalgia Unspecified myalgia and myositis Postop check- Primary Follow-up examination, following unspecified surgery S/P laparoscopic cholecystectomy Other postprocedural status documented in [facility] Diagnosis Routine general medical examination at [facility] care facility- Primary Routine general medical examination at a [facility] care facility Screening for deficiency anemia Screening for other and unspecified deficiency anemia Screening for cholesterol level Screening for prostate cancer Special screening for malignant neoplasm of prostate Screening for diabetes mellitus Primary hypertension Unspecified essential hypertension S/P total right hip arthroplasty Primary hypertension- Primary Unspecified essential hypertension Osteoarthritis of multiple joints, unspecified osteoarthritis type Hypercholesterolemia Pure hypercholesterolemia Primary hypertension- Primary Unspecified essential hypertension Upper back pain- Primary Unspecified backache Muscle spasm Spasm of muscle Primary hypertension Unspecified essential hypertension Upper back pain- Primary Unspecified backache Primary hypertension Unspecified essential hypertension Acute midline low back pain without sciatica- Primary Weakness of both lower extremities Anxiety Anxiety state, unspecified Spinal stenosis of lumbosacral region- Primary Pre-op examination Weakness of both lower extremities Primary hypertension Unspecified essential hypertension Anxiety Anxiety state, unspecified Refused influenza vaccine Spinal stenosis of lumbosacral region- Primary Renal cyst Unspecified congenital cystic kidney disease Primary hypertension- Primary Unspecified essential hypertension Hypercholesterolemia Pure hypercholesterolemia Anxiety Anxiety state, unspecified Routine general medical examination at [facility] care facility Routine general medical examination at [facility] Spinal stenosis of lumbosacral region Osteoarthritis of multiple joints, unspecified osteoarthritis type Myalgia- Primary Unspecified myalgia and myositis Pain of both shoulder joints Chronic fatigue Other malaise and fatigue RUQ pain- Primary Abdominal pain, right upper quadrant Primary hypertension Unspecified essential hypertension Myalgia Unspecified myalgia and myositis Lower abdominal pain- Primary Abdominal pain, other specified site Constipation, unspecified constipation type documented in [facility]* Diagnosis Routine general medical examination at health care facility- Primary Routine general medical examination at a health care facility Screening for deficiency anemia Screening for other and unspecified deficiency anemia Screening for cholesterol level Screening for prostate cancer Special screening for malignant neoplasm of prostate Screening for diabetes mellitus Primary hypertension Unspecified essential hypertension S/P total right hip arthroplasty Primary hypertension- Primary Unspecified essential hypertension Osteoarthritis of multiple joints, unspecified osteoarthritis type Hypercholesterolemia Pure hypercholesterolemia Primary hypertension- Primary Unspecified essential hypertension Upper back pain- Primary Unspecified backache Muscle spasm Spasm of muscle Primary hypertension Unspecified essential hypertension Upper back pain- Primary Unspecified backache Primary hypertension Unspecified essential hypertension Acute midline low back pain without sciatica- Primary Weakness of both lower extremities Anxiety Anxiety state, unspecified Spinal stenosis of lumbosacral region- Primary Pre-op examination Weakness of both lower extremities Primary hypertension Unspecified essential hypertension Anxiety Anxiety state, unspecified Refused influenza vaccine Spinal stenosis of lumbosacral region- Primary Renal cyst Unspecified congenital cystic kidney disease Primary hypertension- Primary Unspecified essential hypertension Hypercholesterolemia Pure hypercholesterolemia Anxiety Anxiety state, unspecified Routine general medical examination at health care facility Routine general medical examination at a [facility] care facility Spinal stenosis of lumbosacral region Osteoarthritis of multiple joints, unspecified osteoarthritis type Myalgia- Primary Unspecified myalgia and myositis Pain of both shoulder joints Chronic fatigue Other malaise and fatigue RUQ pain- Primary Abdominal pain, right upper quadrant Primary hypertension Unspecified essential hypertension Myalgia Unspecified myalgia and myositis Postoperative examination- Primary Follow-up examination, following unspecified surgery S/P laparoscopic cholecystectomy Other postprocedural status documented in [facility]* Diagnosis Routine general medical examination at health care facility- Primary Routine general medical examination at a health care facility Screening for deficiency anemia Screening for other and unspecified deficiency anemia Screening for cholesterol level Screening for prostate cancer Special screening for malignant neoplasm of prostate Screening for diabetes mellitus Primary hypertension Unspecified essential hypertension S/P total right hip arthroplasty Primary hypertension- Primary Unspecified essential hypertension Osteoarthritis of multiple joints, unspecified osteoarthritis type Hypercholesterolemia Pure hypercholesterolemia Primary hypertension- Primary Unspecified essential hypertension Upper back pain- Primary Unspecified backache Muscle spasm Spasm of muscle Primary hypertension Unspecified essential hypertension Upper back pain- Primary Unspecified backache Primary hypertension Unspecified essential hypertension Acute midline low back pain without sciatica- Primary Weakness of both lower extremities Anxiety Anxiety state, unspecified Spinal stenosis of lumbosacral region- Primary Pre-op examination Weakness of both lower extremities Primary hypertension Unspecified essential hypertension Anxiety Anxiety state, unspecified Refused influenza vaccine Spinal stenosis of lumbosacral region- Primary Renal cyst Unspecified congenital cystic kidney disease Primary hypertension- Primary Unspecified essential hypertension Hypercholesterolemia Pure hypercholesterolemia Anxiety Anxiety state, unspecified Routine general medical examination at health care facility Routine general medical examination at a [facility] care facility Spinal stenosis of lumbosacral region Osteoarthritis of multiple joints, unspecified osteoarthritis type Myalgia- Primary Unspecified myalgia and myositis Pain of both shoulder joints Chronic fatigue Other malaise and fatigue RUQ pain- Primary Abdominal pain, right upper quadrant Primary hypertension Unspecified essential hypertension Myalgia Unspecified myalgia and myositis Postoperative examination- Primary Follow-up examination, following unspecified surgery S/P laparoscopic cholecystectomy Other postprocedural status documented in [facility]* Diagnosis Routine general medical examination at health care facility- Primary Routine general medical examination at a [facility] care facility Screening for deficiency anemia Screening for other and unspecified deficiency anemia Screening for cholesterol level Screening for prostate cancer Special screening for malignant neoplasm of prostate Screening for diabetes mellitus Primary hypertension Unspecified essential hypertension S/P total right hip arthroplasty Primary hypertension- Primary Unspecified essential hypertension Osteoarthritis of multiple joints, unspecified osteoarthritis type Hypercholesterolemia Pure hypercholesterolemia Primary hypertension- Primary Unspecified essential hypertension Upper back pain- Primary Unspecified backache Muscle spasm Spasm of muscle Primary hypertension Unspecified essential hypertension Upper back pain- Primary Unspecified backache Primary hypertension Unspecified essential hypertension Acute midline low back pain without sciatica- Primary Weakness of both lower extremities Anxiety Anxiety state, unspecified Spinal stenosis of lumbosacral region- Primary Pre-op examination Weakness of both lower extremities Primary hypertension Unspecified essential hypertension Anxiety Anxiety state, unspecified Refused influenza vaccine Spinal stenosis of lumbosacral region- Primary Renal cyst Unspecified congenital cystic kidney disease Primary hypertension- Primary Unspecified essential hypertension Hypercholesterolemia Pure hypercholesterolemia Anxiety Anxiety state, unspecified Routine general medical examination at [facility] care facility Routine general medical examination at a [facility] care facility Spinal stenosis of lumbosacral region Osteoarthritis of multiple joints, unspecified osteoarthritis type Myalgia- Primary Unspecified myalgia and myositis Pain of both shoulder joints Chronic fatigue Other malaise and fatigue RUQ pain- Primary Abdominal pain, right upper quadrant Primary hypertension Unspecified essential hypertension Myalgia Unspecified myalgia and myositis Primary hypertension- Primary Unspecified essential hypertension documented in [facility]* Diagnosis Routine general medical examination at health care facility- Primary Routine general medical examination at a health care facility Screening for deficiency anemia Screening for other and unspecified deficiency anemia Screening for cholesterol level Screening for prostate cancer Special screening for malignant neoplasm of prostate Screening for diabetes mellitus Primary hypertension Unspecified essential hypertension S/P total right hip arthroplasty Primary hypertension- Primary Unspecified essential hypertension Osteoarthritis of multiple joints, unspecified osteoarthritis type Hypercholesterolemia Pure hypercholesterolemia Primary hypertension- Primary Unspecified essential hypertension Upper back pain- Primary Unspecified backache Muscle spasm Spasm of muscle Primary hypertension Unspecified essential hypertension Upper back pain- Primary Unspecified backache Primary hypertension Unspecified essential hypertension Acute midline low back pain without sciatica- Primary Weakness of both lower extremities Anxiety Anxiety state, unspecified Spinal stenosis of lumbosacral region- Primary Pre-op examination Weakness of both lower extremities Primary hypertension Unspecified essential hypertension Anxiety Anxiety state, unspecified Refused influenza vaccine Spinal stenosis of lumbosacral region- Primary Renal cyst Unspecified congenital cystic kidney disease Primary hypertension- Primary Unspecified essential hypertension Hypercholesterolemia Pure hypercholesterolemia Anxiety Anxiety state, unspecified Routine general medical examination at health care facility Routine general medical examination at a health care facility Spinal stenosis of lumbosacral region Osteoarthritis of multiple joints, unspecified osteoarthritis type Myalgia- Primary Unspecified myalgia and myositis Pain of both shoulder joints Chronic fatigue Other malaise and fatigue RUQ pain- Primary Abdominal pain, right upper quadrant Primary hypertension Unspecified essential hypertension Myalgia Unspecified myalgia and myositis Nerve pain- Primary Unspecified neuralgia, neuritis, and radiculitis Anxiety Anxiety state, unspecified Muscle spasm Spasm of muscle Primary hypertension Unspecified essential hypertension documented in [facility]* Diagnosis Routine general medical examination at health care facility- Primary Routine general medical examination at a health care facility Screening for deficiency anemia Screening for other and unspecified deficiency anemia Screening for cholesterol level Screening for prostate cancer Special screening for malignant neoplasm of prostate Screening for diabetes mellitus Primary hypertension Unspecified essential hypertension S/P total right hip arthroplasty Primary hypertension- Primary Unspecified essential hypertension Osteoarthritis of multiple joints, unspecified osteoarthritis type Hypercholesterolemia Pure hypercholesterolemia Primary hypertension- Primary Unspecified essential hypertension Upper back pain- Primary Unspecified backache Muscle spasm Spasm of muscle Primary hypertension Unspecified essential hypertension Upper back pain- Primary Unspecified backache Primary hypertension Unspecified essential hypertension Acute midline low back pain without sciatica- Primary Weakness of both lower extremities Anxiety Anxiety state, unspecified Spinal stenosis of lumbosacral region- Primary Pre-op examination Weakness of both lower extremities Primary hypertension Unspecified essential hypertension Anxiety Anxiety state, unspecified Refused influenza vaccine Spinal stenosis of lumbosacral region- Primary Renal cyst Unspecified congenital cystic kidney disease Primary hypertension- Primary Unspecified essential hypertension Hypercholesterolemia Pure hypercholesterolemia Anxiety Anxiety state, unspecified Routine general medical examination at health care facility Routine general medical examination at a health care facility Spinal stenosis of lumbosacral region Osteoarthritis of multiple joints, unspecified osteoarthritis type Myalgia- Primary Unspecified myalgia and myositis Pain of both shoulder joints Chronic fatigue Other malaise and fatigue RUQ pain- Primary Abdominal pain, right upper quadrant Primary hypertension Unspecified essential hypertension Myalgia Unspecified myalgia and myositis Nerve pain- Primary Unspecified neuralgia, neuritis, and radiculitis Anxiety Anxiety state, unspecified Muscle spasm Spasm of muscle Primary hypertension Unspecified essential hypertension Nerve pain- Primary Unspecified neuralgia, neuritis, and radiculitis RUQ pain Abdominal pain, right upper quadrant Postoperative abdominal [facility] Disturbance of skin sensation- [facility] medical examination at health care facility- Primary Routine general medical examination at a health care facility Screening for deficiency anemia Screening for other and unspecified deficiency anemia Screening for cholesterol level Screening for prostate cancer Special screening for malignant neoplasm of prostate Screening for diabetes mellitus Primary hypertension Unspecified essential hypertension S/P total right hip arthroplasty Primary hypertension- Primary Unspecified essential hypertension Osteoarthritis of multiple joints, unspecified osteoarthritis type Hypercholesterolemia Pure hypercholesterolemia Primary hypertension- Primary Unspecified essential hypertension Upper back pain- Primary Unspecified backache Muscle spasm Spasm of muscle Primary hypertension Unspecified essential hypertension Upper back pain- Primary Unspecified backache Primary hypertension Unspecified essential hypertension Acute midline low back pain without sciatica- Primary Weakness of both lower extremities Anxiety Anxiety state, unspecified Spinal stenosis of lumbosacral region- Primary Pre-op examination Weakness of both lower extremities Primary hypertension Unspecified essential hypertension Anxiety Anxiety state, unspecified Refused influenza vaccine Spinal stenosis of lumbosacral region- Primary Renal cyst Unspecified congenital cystic kidney disease Primary hypertension- Primary Unspecified essential hypertension Hypercholesterolemia Pure hypercholesterolemia Anxiety Anxiety state, unspecified Routine general medical examination at health care facility Routine general medical examination at a [facility] care facility Spinal stenosis of lumbosacral region Osteoarthritis of multiple joints, unspecified osteoarthritis type DDD (degenerative disc disease), thoracic- Primary Degeneration of thoracic or thoracolumbar intervertebral disc Myalgia- Primary Unspecified myalgia and myositis Pain of both shoulder joints Chronic fatigue Other malaise and fatigue DDD (degenerative disc disease), 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 RUQ pain- Primary Abdominal pain, right upper quadrant Primary hypertension Unspecified essential hypertension Myalgia Unspecified myalgia and myositis Nerve pain- Primary Unspecified neuralgia, neuritis, and radiculitis Anxiety Anxiety state, unspecified Muscle spasm Spasm of muscle Primary hypertension Unspecified essential hypertension Nerve pain- Primary Unspecified neuralgia, neuritis, and radiculitis RUQ pain Abdominal pain, right upper quadrant Postoperative abdominal pain documented [facility] Diagnosis Routine general medical examination at health care facility- Primary Routine general medical examination at a health care facility Screening for deficiency anemia Screening for other and unspecified deficiency anemia Screening for cholesterol level Screening for prostate cancer Special screening for malignant neoplasm of prostate Screening for diabetes mellitus Primary hypertension Unspecified essential hypertension S/P total right hip arthroplasty Primary hypertension- Primary Unspecified essential hypertension Osteoarthritis of multiple joints, unspecified osteoarthritis type Hypercholesterolemia Pure hypercholesterolemia Primary hypertension- Primary Unspecified essential hypertension Upper back pain- Primary Unspecified backache Muscle spasm Spasm of muscle Primary hypertension Unspecified essential hypertension Upper back pain- Primary Unspecified backache Primary hypertension Unspecified essential hypertension Acute midline low back pain without sciatica- Primary Weakness of both lower extremities Anxiety Anxiety state, unspecified Spinal stenosis of lumbosacral region- Primary Pre-op examination Weakness of both lower extremities Primary hypertension Unspecified essential hypertension Anxiety Anxiety state, unspecified Refused influenza vaccine Spinal stenosis of lumbosacral region- Primary Renal cyst Unspecified congenital cystic kidney disease Primary hypertension- Primary Unspecified essential hypertension Hypercholesterolemia Pure hypercholesterolemia Anxiety Anxiety state, unspecified Routine general medical examination at health care facility Routine general medical examination at a [facility] care facility Spinal stenosis of lumbosacral region Osteoarthritis of multiple joints, unspecified osteoarthritis type Myalgia- Primary Unspecified myalgia and myositis Pain of both shoulder joints Chronic fatigue Other malaise and fatigue RUQ pain- Primary Abdominal pain, right upper quadrant Primary hypertension Unspecified essential hypertension Myalgia Unspecified myalgia and myositis Nerve pain- Primary Unspecified neuralgia, neuritis, and radiculitis Anxiety Anxiety state, unspecified Muscle spasm Spasm of muscle Primary hypertension Unspecified essential hypertension Nerve pain- Primary Unspecified neuralgia, neuritis, and radiculitis RUQ pain Abdominal pain, right upper quadrant Postoperative abdominal pain Hypercholesterolemia- Primary Pure hypercholesterolemia Nerve pain Unspecified neuralgia, neuritis, and radiculitis Primary hypertension Unspecified essential hypertension Anxiety Anxiety state, unspecified [facility] Diagnosis Routine general medical examination at health care facility- Primary Routine general medical examination at a health care facility Screening for deficiency anemia Screening for other and unspecified deficiency anemia Screening for cholesterol level Screening for prostate cancer Special screening for malignant neoplasm of prostate Screening for diabetes mellitus Primary hypertension Unspecified essential hypertension S/P total right hip arthroplasty Primary hypertension- Primary Unspecified essential hypertension Osteoarthritis of multiple joints, unspecified osteoarthritis type Hypercholesterolemia Pure hypercholesterolemia Primary hypertension- Primary Unspecified essential hypertension Upper back pain- Primary Unspecified backache Muscle spasm Spasm of muscle Primary hypertension Unspecified essential hypertension Upper back pain- Primary Unspecified backache Primary hypertension Unspecified essential hypertension Acute midline low back pain without sciatica- Primary Weakness of both lower extremities Anxiety Anxiety state, unspecified Spinal stenosis of lumbosacral region- Primary Pre-op examination Weakness of both lower extremities Primary hypertension Unspecified essential hypertension Anxiety Anxiety state, unspecified Refused influenza vaccine Spinal stenosis of lumbosacral region- Primary Renal cyst Unspecified congenital cystic kidney disease Primary hypertension- Primary Unspecified essential hypertension Hypercholesterolemia Pure hypercholesterolemia Anxiety Anxiety state, unspecified Routine general medical examination at health care facility Routine general medical examination at a health care facility Spinal stenosis of lumbosacral region Osteoarthritis of multiple joints, unspecified osteoarthritis type Myalgia- Primary Unspecified myalgia and myositis Pain of both shoulder joints Chronic fatigue Other malaise and fatigue RUQ pain- Primary Abdominal pain, right upper quadrant Primary hypertension Unspecified essential hypertension Myalgia Unspecified myalgia and myositis Nerve pain- Primary Unspecified neuralgia, neuritis, and radiculitis Anxiety Anxiety state, unspecified Muscle spasm Spasm of muscle Primary hypertension Unspecified essential hypertension Nerve pain- Primary Unspecified neuralgia, neuritis, and radiculitis RUQ pain Abdominal pain, right upper quadrant Postoperative abdominal pain Hypercholesterolemia- Primary Pure hypercholesterolemia Nerve pain Unspecified neuralgia, neuritis, and radiculitis Primary hypertension Unspecified essential hypertension Anxiety Anxiety state, unspecified Hypercholesterolemia Pure hypercholesterolemia documented in [facility]* Diagnosis Routine general medical examination at health care facility- Primary Routine general medical examination at a health care facility Screening for deficiency anemia Screening for other and unspecified deficiency anemia Screening for cholesterol level Screening for prostate cancer Special screening for malignant neoplasm of prostate Screening for diabetes mellitus Primary hypertension Unspecified essential hypertension S/P total right hip arthroplasty Primary hypertension- Primary Unspecified essential hypertension Osteoarthritis of multiple joints, unspecified osteoarthritis type Hypercholesterolemia Pure hypercholesterolemia Primary hypertension- Primary Unspecified essential hypertension Upper back pain- Primary Unspecified backache Muscle spasm Spasm of muscle Primary hypertension Unspecified essential hypertension Upper back pain- Primary Unspecified backache Primary hypertension Unspecified essential hypertension Acute midline low back pain without sciatica- Primary Weakness of both lower extremities Anxiety Anxiety state, unspecified Spinal stenosis of lumbosacral region- Primary Pre-op examination Weakness of both lower extremities Primary hypertension Unspecified essential hypertension Anxiety Anxiety state, unspecified Refused influenza vaccine Spinal stenosis of lumbosacral region- Primary Renal cyst Unspecified congenital cystic kidney disease Primary hypertension- Primary Unspecified essential hypertension Hypercholesterolemia Pure hypercholesterolemia Anxiety Anxiety state, unspecified Routine general medical examination at health care facility Routine general medical examination at a health care facility Spinal stenosis of lumbosacral region Osteoarthritis of multiple joints, unspecified osteoarthritis type Myalgia- Primary Unspecified myalgia and myositis Pain of both shoulder joints Chronic fatigue Other malaise and fatigue RUQ pain- Primary Abdominal pain, right upper quadrant Primary hypertension Unspecified essential hypertension Myalgia Unspecified myalgia and myositis Nerve pain- Primary Unspecified neuralgia, neuritis, and radiculitis Anxiety Anxiety state, unspecified Muscle spasm Spasm of muscle Primary hypertension Unspecified essential hypertension Nerve pain- Primary Unspecified neuralgia, neuritis, and radiculitis RUQ pain Abdominal pain, right upper quadrant Postoperative abdominal pain Hypercholesterolemia- Primary Pure hypercholesterolemia Nerve pain Unspecified neuralgia, neuritis, and radiculitis Primary hypertension Unspecified essential hypertension Anxiety Anxiety state, unspecified Hypercholesterolemia Pure hypercholesterolemia documented in this encounter [facility]* Attachments The following attachments cannot be sent through Care Everywhere. * Low Back Pain Discharge Instructions ([place]) documented in this [facility] Discharge instructions* Attachments The following attachments cannot be sent through Care Everywhere. * Opioids for Short-Term Treatment of Pain ([place]) documented in this [facility] Discharge instructions* Attachments The following attachments cannot be sent through Care Everywhere. * Chest Pain Discharge Instructions ([place]) documented in this [facility] Discharge instructions* Attachments The following attachments cannot be sent through Care Everywhere. * Constipation in Adults ([place]) documented in this [facility] Discharge instructions Additional Instructions Your CT scan showed evidence that you have a coronary artery calcification and follow-up on this with your doctor with stress test as we discussed. Your blood work did not show acute findings. Follow-up on A1c with your doctor as well. Return with worsening symptoms or concerns.[facility] Work Phone: Instructions* Attachments The following attachments cannot be sent through Care Everywhere. * Exercises for Upper Back Pain ([place]) [facility] Attachments The following attachments cannot be sent through Care Everywhere. * Flu Discharge Instructions, Adult ([place]) [facility] Attachments The following attachments cannot be sent through Care Everywhere. * High Blood Pressure in Adults ([place]) * Checking Your Blood Pressure at Home ([place]) * Blood Pressure Testing and Measurement ([place]) [facility]* Attachments The following attachments cannot be sent through Care Everywhere. * Buspirone, ADULT ([place]) [facility] (narrative)* Consultation (Routine) - Pending Review Specialty Diagnoses / Procedures Referred By Jaspal lindsey Referred To Contact Physical Therapy Diagnoses Cervical radiculitis Scapular dyskinesis Procedures PA [facility]ICE[facility] 60 MINUTES Weston Henao MD [address] [place] [address] [place] [address] Referral ID Status Reason Start Date Expiration Date Visits Requested Visits Authorized [id number] Pending Review Specialty Services Required 02/27/2024 02/26/2025 99 99 [facility])* Consultation (Routine) - Pending Review Specialty Diagnoses / Procedures Referred By Contac t Referred To Contact Physical Therapy Diagnoses Spondylolisthesis of lumbosacral region Procedures PA OFFICE/OUTPATIENT [facility] 60 MINUTES Weston Henao MD [address] [place] [address] [facility] [address] [facility] [address] [place] [address] Referral ID Status Reason Start Date Expiration Date Visits Requested Visits Authorized [id number] Pending Review Specialty Services Required 03/17/2024 03/17/2025 99 99 [facility] (narrative)No reason for referral information availableWTrinity [facility] System Work Phone: Reason for visit Narrative* Imaging (Routine) - Closed Specialty Diagnoses / Procedures Referred By Contac t Referred To Contact Radiology Diagnoses DDD (degenerative disc disease), thoracic Procedures NM bone whole body Nick Head MD [address] [address] Phone: tel: fax: Referral ID Status Reason Start Date Expiration Date Visits Re quested Visits Authorized [id number] Closed 01/01/2025 01/01/2026 1 1 [employer] for visit Narrative* Auth/Cert (Routine) Specialty Diagnoses / Procedures Referred By Contac t Referred To Contact Diagnoses Chronic cholecystitis Chronic cholecystitis [K81.1] Procedures PA LAPAROSCOPY SURG CHOLECYSTECTOMY LAPAROSCOPIC CHOLECYSTECTOMY Corona Cool MD [address] [facility] [address] [place] [address] Phone: tel: fax: Referral ID Status Reason Start Date Expiration Date Visits Re quested Visits Authorized [id number] 02/18/2025 1 1 [facility] Assessments Diagnosis Hip abductor tendinitis, right Strain of iliopsoas muscle, right, initial encounter Diagnosis Right-sided chest wall pain Painful respiration Right upper quadrant abdominal pain Abdominal pain, right upper quadrant Advance Directives Documents on File Type Date Recorded Patient Core Measures Abstractor Expl anation Advance Directives and Living Will Power of Packing Room Worker Documents on File Type Date Recorded Patient Core Measures Abstractor Expl anation ACP-Advance Directive ACP-Power of Packing Room Worker Latest Code Status on File Code Status Date Activated Date Inactivated Comments Full Code 02/28/2022 11:36 AM 02/28/2022 7:57 PM Full Code 02/28/2022 6:13 AM 02/28/2022 10:58 AM Documents on File Type Date Recorded Patient Core Measures Abstractor Expl anation Living Will Documentation 12/03/2024 8:34 AM Power of Packing Room Worker 12/03/2024 8:33 AM Documents on File Type Date Recorded Patient Core Measures Abstractor Expl anation Living Will Documentation 12/03/2024 8:34 AM Power of Packing Room Worker 12/03/2024 8:33 AM Date Activated Date Inactivated Comments 02/19/2025 10:11 AM 02/19/2025 5:00 PM Date Activated Date Inactivated Comments 02/19/2025 10:11 AM 02/19/2025 5:00 PM Advance Directive Response Recorded Date/ Time Do you have a Healthcare Power of Packing Room Worker? Yes April 03, 2025 2:02pm Summary Purpose Family History No Family History Records FoundNo Family History Records FoundNo Family History Records FoundNo Family History Records FoundNo Family History Records Found Reason for Referral Specialty Diagnoses / Procedures Referred By Contac t Referred To Contact Diagnoses Midline low back pain without sciatica, unspecified chronicity Corona Aleman MD [address] [place] [address] Referral ID Status Reason Start Date Expiration Date V isits Requested Visits Authorized [id number] Pending Review 03/18/2024 09/14/2024 1 1 Specialty Diagnoses / Procedures Referred By Contac t Referred To Contact Diagnoses Anthony Birch MD [address] [facility] [place] [address] Referral ID Status Reason Start Date Expiration Date Visits Re quested Visits Authorized [id number] Closed 1 1 Chief Complaint and Reason for Visit Chief Complaint Admit Date RUQ PAIN February 11, 2025 8:49 am Chief Complaint Admit Date RUQ PAIN February 11, 2025 8:49 am numb/ting bilat legs April 03 12:47pm Additional Source Comments Care Teams (unrecognized sec tion and content) Central Control Room Operator Relationship Specialty Start Date End Date Anthony Chamorro MD [address] [place] [id number] PCP - General Family Medicine 05/14/19 Central Control Room Operator Relationship Specialty Start Date End Date Anthony Chamorro MD [address] [place] [address] PCP - General Family Medicine 05/14/19 Central Control Room Operator Relationship Specialty Start Date End Date Anthony Chamorro MD [address] [place] [id number] PCP - General Family Medicine 05/14/19 Central Control Room Operator Relationship Specialty Start Date End Date Anthony Chamorro MD [address] [place] [address] PCP - General Family Medicine 05/14/19 Central Control Room Operator Relationship Specialty Start Date End Date Anthony Chamorro MD [address] [place] [address] [address] PCP - General Family Medicine 05/14/19 Central Control Room Operator Relationship Specialty Start Date End Date Anthony Chamorro MD [address] [place], [place] [address] [address] PCP - General 05/14/19 Central Control Room Operator Relationship Specialty Start Date End Date Anthony Chamorro MD [address] [place] [address] [address] PCP - General 05/14/19 Central Control Room Operator Relationship Specialty Start Date End Date Anthony Chamorro MD [address] [facility] [place] [address] PCP - General 05/14/19 Central Control Room Operator Relationship Specialty Start Date End Date Anthony Chamorro MD 25 [facility] [place] [address] PCP - General 05/14/19 Central Control Room Operator Relationship Specialty Start Date End Date Anthony Chamorro MD [address] [facility] [place] [address] PCP - General 05/14/19 Central Control Room Operator Relationship Specialty Start Date End Date Anthony Chamorro MD [address] [facility] [place] [address] PCP - General 05/14/19 Central Control Room Operator Relationship Specialty Start Date End Date Anthony Chamorro MD [address] [facility] [place] [address] PCP - General 05/14/19 Central Control Room Operator Relationship Specialty Start Date End Date Anthony Chamorro MD 25 [facility] [place] [address] PCP - General 05/14/19 Central Control Room Operator Relationship Specialty Start Date End Date Anthony Chamorro MD [address] [facility] [place] [address] PCP - General 05/14/19 Central Control Room Operator Relationship Specialty Start Date End Date Anthony Chamorro MD 25 [place] [address] PCP - General 05/14/19 Central Control Room Operator Relationship Specialty Start Date End Date Anthony Chamorro MD [address] [place] [address] PCP - General 05/14/19 Central Control Room Operator Relationship Specialty Start Date End Date Anthony Chamorro MD [address] [place] [address] PCP - General 05/14/19 Central Control Room Operator Relationship Specialty Start Date End Date Anthony Chamorro MD [address] [place] [address] PCP - General 05/14/19 Central Control Room Operator Relationship Specialty Start Date End Date Anthony Chamorro MD 25 [facility] [place] [address] PCP - General 05/14/19 Central Control Room Operator Relationship Specialty Start Date End Date Anthony Chamorro MD 25 [place] [address] PCP - General 05/14/19 Central Control Room Operator Relationship Specialty Start Date End Date Anthony Chamorro MD 25 [place] [address] PCP - General 05/14/19 Central Control Room Operator Relationship Specialty Start Date End Date Anthony Chamorro MD [address] [place] [place] [address] PCP - General 05/14/19 Central Control Room Operator Relationship Specialty Start Date End Date Anthony Chamorro MD [address] [facility] [place] [place] [address] PCP - General 05/14/19 Central Control Room Operator Relationship Specialty Start Date End Date Anthony Chamorro MD 25 [facility] [place] [address] PCP - General 05/14/19 Central Control Room Operator Relationship Specialty Start Date End Date Anthony Chamorro MD 25 [facility] [place] [address] PCP - General 05/14/19 Central Control Room Operator Relationship Specialty Start Date End Date Anthony Chamorro MD 25 [facility] [place] [address] PCP - General 05/14/19 Central Control Room Operator Relationship Specialty Start Date End Date Anthony Chamorro MD 25 [facility] [place] [address] PCP - General 05/14/19 Central Control Room Operator Relationship Specialty Start Date End Date Anthony Chamorro MD [address] [facility] [place] [address] PCP - General 05/14/19 Central Control Room Operator Relationship Specialty Start Date End Date Anthony Chamorro MD 25 [facility] [place] [address] PCP - General 05/14/19 Central Control Room Operator Relationship Specialty Start Date End Date Anthony Chamorro MD 25 [facility] [place] [address] PCP - General 05/14/19 Central Control Room Operator Relationship Specialty Start Date End Date Anthony Chamorro MD [address] [facility] [place] [address] PCP - General 05/14/19 Central Control Room Operator Relationship Specialty Start Date End Date Anthony Chamorro MD [address] [facility] [address] PCP - General 05/14/19 Central Control Room Operator Relationship Specialty Start Date End Date Anthony Chamorro MD [address] [facility] [place] [address] PCP - General 05/14/19 Central Control Room Operator Relationship Specialty Start Date End Date Anthony Chamorro MD [address] [facility] [place] [address] PCP - General 05/14/19 Central Control Room Operator Relationship Specialty Start Date End Date Anthony Chamorro MD [address] [facility] [place] [address] PCP - General 05/14/19 Central Control Room Operator Relationship Specialty Start Date End Date Anthony Chamorro MD [address] [facility] [place] [address] PCP - General 05/14/19 Central Control Room Operator Relationship Specialty Start Date End Date Anthony Chamorro MD [facility] [place] [address] PCP - General 05/14/19 Central Control Room Operator Relationship Specialty Start Date End Date Anthony Chamorro MD [address] [place] [address] PCP - General 05/14/19 Central Control Room Operator Relationship Specialty Start Date End Date Anthony Chamorro MD [facility] [place] [address] PCP - General 05/14/19 Central Control Room Operator Relationship Specialty Start Date End [place] [address] PCP - General 05/14/19 Central Control Room Operator Relationship Specialty Start Date End Date Anthony Chamorro MD [facility] [place] [address] PCP - General 05/14/19 Central Control Room Operator Relationship Specialty Start Date End Date Anthony Chamorro MD [facility] [place] [address] PCP - General 05/14/19 Central Control Room Operator Relationship Specialty Start Date End Date Anthony Chamorro MD [facility] [place] [address] PCP - General 05/14/19 Central Control Room Operator Relationship Specialty Start Date End Date Anthony [place]orro [place] [facility] [place] [address] PCP - General 05/14/19 Central Control Room Operator Relationship Specialty Start Date End Date Anthony Chamorro MD 25 [facility] [place] [address] PCP - General 05/14/19 Central Control Room Operator Relationship Specialty Start Date End Date Anthony Chamorro MD 25 [facility] [place] [address] PCP - General 05/14/19 Central Control Room Operator Relationship Specialty Start Date End Date Anthony Chamorro MD 25 [place] [address] PCP - General 05/14/19 Central Control Room Operator Relationship Specialty Start Date End Date Anthony Chamorro MD [address] [facility] [address] PCP - General 05/14/19 Central Control Room Operator Relationship Specialty Start Date End Date Anthony Chamorro MD [address] [facility] [place] [address] PCP - General 05/14/19 Central Control Room Operator Relationship Specialty Start Date End Date Anthony Chamorro MD [address] [facility] [address] PCP - General 05/14/19 Central Control Room Operator Relationship Specialty Start Date End Date Anthony Chamorro MD 25 [place] [address] PCP - General 05/14/19 Central Control Room Operator Relationship Specialty Start Date End Date Anthony Chamorro MD [place], [place] [id number] PCP - General 05/14/19 Central Control Room Operator Relationship Specialty Start Date End [place] [address] PCP - General 05/14/19 Central Control Room Operator Relationship Specialty Start Date End Date Weston Henao [address] [place] [address] PCP - General Family Medicine 05/02/19 Ilan Tariq CNP [address] [place] [address] Referring Family Medicine 01/28/25 Central Control Room Operator Relationship Specialty Start Date [place] [address] PCP - General 05/14/19 Team Status: Active Member Role/Relationship Status Dates Dr. Anthony Chamorro MD Primary Care Provider Active Team Status: Inactive Member Role/Relationship Status Dates YOU Valerio Attending Provider Active Start: February 11, 2025 End: February 11, 2025 YOU Valerio Referring Provider Active Start: February 11, 2025 End: February 11, 2025 Dr. Anthony Chamorro MD Primary Care Provider Active Start: February 11, 2025 End: February 11, 2025 Central Control Room Operator Relationship Specialty Start Date End [place] [address] PCP - General 05/14/19 Central Control Room Operator Relationship Specialty Start Date End Date Anthony Chamorro MD [address] [facility] [place] [address] PCP - General 05/14/19 Central Control Room Operator Relationship Specialty Start Date End Date Anthony Chamorro MD 25 [facility] [place] [address] PCP - General 05/14/19 Central Control Room Operator Relationship Specialty Start Date End Date Anthony Chamorro MD [address] [place] [address] PCP - General 05/14/19 Central Control Room Operator Relationship Specialty Start Date End Date Anthony Chamorro MD 25 [facility] [place] [address] PCP - General 05/14/19 Central Control Room Operator Relationship Specialty Start Date End Date Anthony Chamorro MD [address] [facility] [place] [address] PCP - General 05/14/19 Central Control Room Operator Relationship Specialty Start Date End Date Anthony Chamorro MD 25 [place] [address] PCP - General 05/14/19 Central Control Room Operator Relationship Specialty Start Date End Date Anthony Chamorro MD 25 [facility] [place] [address] PCP - General 05/14/19 Central Control Room Operator Relationship Specialty Start Date End Date Anthony Chamorro MD [facility] [place] [address] PCP - General 05/14/19 Central Control Room Operator Relationship Specialty Start Date End Date Weston Henao [address] [place] [address] PCP - General Family Medicine 05/02/19 Ilan Tariq, KEY BED INSTALLER [address] [place] [address] [place] [address] Referring Family Medicine 01/28/25 Central Control Room Operator Relationship Specialty Start Date End Date [facility] [place] [address] PCP - General 05/14/19 Team Status: Inactive Member Role/Relationship Status Dates Dr. Anthony Chamorro MD Primary Care Provider Active Start: April 03, 2025 End: April 03, 2025 Dr. Roque Wood DO Emergency Provider Active Start: April 03, 2025 End: April 03, 2025 Central Control Room Operator Relationship Specialty Start Date End Date Anthony Chamorro MD [address] [place] [address] [place] [address] PCP - General 05/14/19 Central Control Room Operator Relationship Specialty Start Date End Date Anthony Chamorro MD [facility] [place] [address] PCP - General 05/14/19 Central Control Room Operator Relationship Specialty Start Date End Date Anthony [facility] [place] [address] PCP - General 05/14/19 Reason for Visit (unrecogniz ed section and content) Reason Comments Back Pain Dizziness Reason Comments Follow-up 1 yeah follow up for right hip replacement Reason Comments URI Reason Onset Date Comments Results 09/18/2023 Reason Onset Date Comments Results 10/18/2023 Reason Comments Anxiety Hypertension Medication Check 6 month Reason Onset Date Comments Blood Pressure Check 01/23/2024 Reason Onset Date Comments Numbness 02/01/2024 Reason Onset Date Comments Back Pain 02/13/2024 Reason Comments Back Pain Reason Onset Date Comments Back Pain 02/18/2024 Reason Comments Follow-up Back Pain Reason Onset Date Comments Back Pain 03/04/2024 Specialty Diagnoses / Procedures Referred By Jaspal lindsey Referred To Contact Physical Therapy Diagnoses Cervical radiculitis Scapular dyskinesis Procedures PA OFFICE/OUTPATIENT [facility] MDM 60 MINUTES Weston Henao MD [address] [place] [address] [facility] Pt [address] [place] [address] [place] [address] Referral ID Status Reason Start Date Expiration Date Visits Requested Visits Authorized [id number] Authorized Specialty Services Required 02/27/2024 02/26/2025 99 99 Reason Comments Abdominal Pain RLQ Reason Comments ER Follow-up [facility] 03/06/24 side pa in Reason Onset Date Comments Neck Pain 03/18/2024 Reason Comments Back Pain Reason Comments Back Pain On going - been to E D x3 sched for Mri on 04/16/24 seen [facility] for this Anxiety Pain is causing anxi ety to be elevated Reason Comments Med Refill Reason Comments Pre-op Exam [facility]- lami nectomy and fusion 05/27/24PAT 05/15/24 Health Maintenance Flu vaccine- refuse3 rd covid vaccine- not done Reason Comments Other Urine dip Reason Comments PT Discharge Reason Comments Follow-up States he had a CT a nd is scheduled to have back surgery tomorrow morning, is just having some questions regarding everything Reason Comments Follow-up 4mo PO: Right LASHONDA DO S 02/28 Reason Onset Date Comments Cough 08/14/2024 Reason Comments Flank Pain Right Nausea Vomiting Cough Headache Reason Onset Date Comments Influenza 08/21/2024 Reason Comments Shortness of Breath Pt arrives from home for shortness of breath and flu like symptoms. Pt states he was recently seen in his PCP office where he tested positive for influenza A. Pt endorses pain to his R rib cage with coughing. 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 Specialty Diagnoses / Procedures Referred By Jaspal t Referred To Contact General Surgery Diagnoses Cholecystitis Abnormal biliary HIDA scan Procedures PA OFFICE/OUTPATIENT NEW HIGH MDM 60 MINUTES Anthony Chamorro MD [address] [facility] [place] [address] Phone: tel: fax: Henri Lopes MD [address] [place] [address] [address] [place] [address] Phone: tel: fax: Referral ID Status Reason Start Date Expiration Date V isits Requested Visits Authorized [id number] Closed Specialty Services Required 02/17/2025 02/17/2026 1 1 Reason Onset Date Comments Post-op Problem 03/02/2025 Reason Comments Post-op PO Lap devora 02/19 bl isters in between the incision Reason Comments Constipation Reason Comments Post-op PO 02/19 Gallbladder. Blisters on abdomen Reason Comments Blood Pressure Check bp elevated at spec ialist office on so we had him come in for bp check Reason Comments Abdominal Pain Surface-shingles? Reason Onset Date Comments Constipation 02/21/2025 Reason Comments Follow-up Reason Comments New Patient Evaluation Gall bladder surg rich 5 weeks ago and since then the area on stomach has pain and cannot touch Reason Comments Follow-up Ordered Prescriptions (unrec ognized section and content) Prescription Sig Dispensed Refills Start Date End Da te oxyCODONE-acetaminophen (PERCOCET) 5-325 MG per tabletIndications:Upper back pain Take 1 tablet by mouth every 6 hours as needed for Pain for up to 3 days. Intended supply: 3 days. Take lowest dose possible to manage pain 12 tablet 0 02/23/2022 02/26/2022 Scheduled Active and Recently Administ ered Medications (unrecognized section and content) Medication Order 02/21/2022 02/22/2022 02/23/2022 0.9 % sodium chloride bolus (COMPLETED) 1,000 mL (15.2 mL/kg), IntraVENous, at 983.6 mL/hr, Administer over 61 Minutes, ONCE, On Di 02/23/22 at 1603, For 1 dose 164 (New Bag - Prov ider: Dinorah Hernandez RN)174 (Stopped - Provider: Dinorah Hernandez RN) acetaminophen (TYLENOL) tablet 650 mg (COMPLETED) 650 mg, Oral, ONCE, 1 dose, On Di 02/23/22 at 1831, Maximum dose of acetaminophen is 4000 mg from all sources in 24 hours. 1840 (Given - Provid er: Dinorah Hernandez RN) oxyCODONE-acetaminophen (PERCOCET) 5-325 MG per tablet 1 tablet (COMPLETED) Mg/kg dosing is based on the oxycodone component., 1 tablet, Oral, ONCE, 1 dose, On Di 02/23/22 at 1831, Maximum dose of acetaminophen is 4000 mg from all sources in 24 hours. 1840 (Given - Provid er: Dinorah Hernandez RN) sodium chloride flush 0.9 % injection 3 mL(Linked Group 1) 3 mL, IntraVENous, EVERY 8 HOURS, First dose on Di 02/23/22 at 1556, Until Discontinued, Flush line with 3-5 mL 1648 (Given - Provid er: Dinorah Hernandez RN)2356 (Due) Linked Groups Order Group 1: Saline lock IV (COMPLETED) Routine, CONTINUOUS, Starting on Di 02/23/22 at 1600, Until Specified And sodium chloride flush 0.9 % injection 3 mLJump to med 3 mL, IntraVENous, EVERY 8 HOURS, First dose on Di 02/23/22 at 1556, Until Discontinued
Flush line with 3-5 mL
Scheduled Medication Order 03/05/2024 03/06/2024 03/07/2024 morphine injection 4 mg (COMPLETED) 4 mg, IntraVENous, Once, On Sun03/07/24 at 0220, For 1 dose, If oral and IV narcotics ordered, use oral first and only use IV if oral is ineffective or cannot take oral. Do Not give oral and IV within 1 hour of each other unless specifically ordered. 0220 (Given - Provid er: Ester Morelos RN) ondansetron (Zofran) injection 4 mg (COMPLETED) 4 mg, IntraVENous, Once, On Sun03/07/24 at 0220, For 1 dose 023 (Given - Provid er: Ester Morelos RN) sodium chloride 0.9 % bolus 1,000 mL (COMPLETED) 1,000 mL, IntraVENous, at 1,000 mL/hr, Administer over 1 Hours, Once, On Sun03/07/24 at 0220, For 1 dose 0231 (New Bag - Prov ider: Ester Morelos RN)0323 (Stopped - Provider: Ester Morelos RN) Scheduled Medication Order 03/16/2024 03/17/2024 03/18/2024 cyclobenzaprine (Flexeril) tablet 5 mg (COMPLETED) 5 mg, Oral, Once, On Sun03/18/24 at 1540, For 1 dose 155 (Given - Provid er: Jia Herring RN) dexAMETHasone (Decadron) injection 4 mg (COMPLETED) 4 mg, IntraMUSCular, Once, On Sun03/18/24 at 1540, For 1 dose 1553 (Given - Provid er: Jia Herring RN) ketorolac (Toradol) injection 15 mg (COMPLETED) 15 mg, IntraVENous, Once, On Sun03/18/24 at 1540, For 1 dose 1553 (Given - Provid er: Jia Herring RN - Comment: pt given IM per verbal order Dr. Gutierrez. not given IV) oxyCODONE-acetaminophen (Percocet) 5-325 MG per tablet 1 tablet (COMPLETED) 1 tablet, Oral, Once, On Sun03/18/24 at 1415, For 1 dose, Maximum dose of acetaminophen is 4000 mg from all sources in 24 hours. 141 (Given - Provid er: Jia Herring RN) Scheduled Medication Order 03/24/2024 03/25/2024 03/26/2024 ketorolac (Toradol) injection 30 mg (COMPLETED) 30 mg, IntraMUSCular, Once, On Sun03/26/24 at 1720, For 1 dose 172 (Given - Provid er: Alma Adams RN) morphine injection 4 mg (COMPLETED) 4 mg, IntraMUSCular, Once, On Sun03/26/24 at 1830, For 1 dose, If oral and IV narcotics ordered, use oral first and only use IV if oral is ineffective or cannot take oral. Do Not give oral and IV within 1 hour of each other unless specifically ordered. 183 (Given - Provid er: Alma Adams RN) oxyCODONE-acetaminophen (Percocet) 5-325 MG per tablet 1 tablet (COMPLETED) 1 tablet, Oral, Once, On Sun03/26/24 at 1720, For 1 dose, Maximum dose of acetaminophen is 4000 mg from all sources in 24 hours. 172 (Given - Provid er: Alma Adams RN) Scheduled Medication Order 08/19/2024 08/20/2024 08/21/2024 ipratropium-albuterol (Duo-Neb) 0.5-2.5 mg/3 mL nebulizer solution 3 mL (COMPLETED) 3 mL, Nebulization, Once, On Di 08/21/24 at 1205, For 1 dose 121 (Given - Provid er: Ila Sorensen RN) ipratropium-albuterol (Duo-Neb) 0.5-2.5 mg/3 mL nebulizer solution 3 mL (COMPLETED) 3 mL, Nebulization, Once, On Di 08/21/24 at 1310, For 1 dose 131 (Given - Provid er: Ila Sorensen RN) methylPREDNISolone sodium succinate (PF) (SOLU-Medrol) injection 40 mg (COMPLETED) 40 mg, IntraVENous, Once, On Di 08/21/24 at 1205, For 1 dose 1212 (Given - Provid er: Ila Sorensen RN) sodium chloride 0.9 % bolus 1,000 mL (COMPLETED) 1,000 mL, IntraVENous, at 1,000 mL/hr, Administer over 1 Hours, Once, On Di 08/21/24 at 1205, For 1 dose 1212 (New Bag - Prov ider: Ila Sorensen RN)1306 (Stopped - Provider: Ila Sorensen RN) Scheduled Medication Order 11/28/2024 11/29/2024 11/30/2024 aspirin chewable tablet 324 mg (COMPLETED) 324 mg, Oral, Once, On 11/30/24 at 1255, For 1 dose 1308 (Given - Provid er: Brittany Gil RN) Scheduled Medication Order 01/02/2025 01/03/2025 01/04/2025 HYDROcodone-acetaminophen (Warwick) 5-325 MG per tablet 1 tablet (COMPLETED) 1 tablet, Oral, Once, On Jones 01/04/25 at 1130, For 1 dose, Maximum dose of acetaminophen is 4000 mg from all sources in 24 hours. 1130 (Given - Provid er: Mamta Strickland LPN) Scheduled Medication Order 02/17/2025 02/18/2025 02/19/2025 acetaminophen (Tylenol) tablet 1,000 mg (COMPLETED) 1,000 mg, Oral, Once, On Di 02/19/25 at 1045, For 1 dose, Preprocedure, Administer 60 minutes prior to surgery. 1044 (Given - Provid er: Yuliya Torres RN) clindamycin in D5W (Cleocin) IVPB 900 mg (COMPLETED) 900 mg, IntraVENous, at 50 mL/hr, Administer over 60 Minutes, Clinical Technologist to O.R., On Di 02/19/25 at 1015, For 1 dose, Preprocedure, Administer within 1 hour prior to incision. premix bag, Suspected Indication (Select all that apply): Surgical Prophylaxis 1209 (Given - Provid er: Hernando Mathews, HOME MANAGER - THERAPY TECHNICIAN) famotidine (Pepcid) tablet 20 mg (COMPLETED)(Linked Group 1) 20 mg, Oral, Once, On Di 02/19/25 at 1045, For 1 dose, Preprocedure, IV or Oral 1044 (Given - Provid er: Yuliya Torres RN) methocarbamol (Robaxin) injection 1,000 mg (COMPLETED) 1,000 mg, IntraVENous, Administer over 5 Minutes, Once, On Di 02/19/25 at 1330, For 1 dose, Recovery (only), Maximum dose: 3 g/day for no more than 3 consecutive days 1319 (Given - Provid er: Anette Lynn, LILIANA) 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 Shake well. With sleeve on ampule, crush at dot to pop. Squeeze to wet swab tip. Swab around nostril rims 8 times in each direction. Squeeze to rewet swab tip and repeat. Repeat for other nostril. Caution : Do not extend in nose beyond swab tip. Appy to skin only. Discard after use. 1042 (Given - Provid er: Yuliya Torres RN) sodium chloride 0.9% (NS) flush 10 mL 10 mL, IntraVENous, Every 12 hours scheduled (2 times per day), First dose on Di 02/19/25 at 1015, Preprocedure 1015 (Canceled Entry - Provider: Automatic Discharge Provider - Comment: Automatically canceled at discontinue of medication order) sodium chloride 0.9% (NS) flush 5-40 mL 5-40 mL, IntraVENous, Every 12 hours, First dose on Di 02/19/25 at 1030, Preprocedure, For Line Patency: Peripheral IV = 5 mL; Midline or Central Line = 10 mL/lumen. If following IV push medication, administer flush at same rate as the IV push. Flush volume is determined by type of infusion therapy being given. For non-viscous solutions use: Peripheral IV = 5 mL Midline or Central Line = 10 mL/lumen For viscous solutions (i.e. blood components, parenteral nutrition, contrast media, or after obtaining blood sample) use: Peripheral IV = 10 mL Midline or Central Line = 20 mL/lumen 1030 (Canceled Entry - Provider: Automatic Discharge Provider - Comment: Automatically canceled at discontinue of medication order) sodium chloride 0.9% (NS) flush 5-40 mL 5-40 mL, IntraVENous, Every 12 hours, First dose on Di 02/19/25 at 1045, Preprocedure, For Line Patency: Peripheral IV = 5 mL; Midline or Central Line = 10 mL/lumen. If following IV push medication, administer flush at same rate as the IV push. Flush volume is determined by type of infusion therapy being given. For non-viscous solutions use: Peripheral IV = 5 mL Midline or Central Line = 10 mL/lumen For viscous solutions (i.e. blood components, parenteral nutrition, contrast media, or after obtaining blood sample) use: Peripheral IV = 10 mL Midline or Central Line = 20 mL/lumen 1045 (Canceled Entry - Provider: Automatic Discharge Provider - Comment: Automatically canceled at discontinue of medication order) Continuous Medication Order 02/17/2025 02/18/2025 02/19/2025 lactated Ringer's (LR) infusion 50 mL/hr, IntraVENous, Continuous, Starting on Di 02/19/25 at 1045, Preprocedure, Upon admission to sameday - please start iv if patient does not have iv access. Use 500ml NS for patients on dialysis. 1045 (New Bag - Prov ider: Yuliya Torres RN)1200 (Paused - Provider: RONAN Talbert CRNA - Comment: Switch to gravity)1201 (Restarted - Provider: RONAN Talbert CRNA)1218 (Canceled Entry - Provider: RONAN Talbert CRNA - Comment: Switch to gravity)1219 (Canceled Entry - Provider: RONAN Talbert CRNA)1700 (Due: Order Ending - Provider: Automatic Discharge Provider - Comment: [Order ends at this time. Document the following action when infusion is complete: Stopped]) sodium chloride 0.9 % infusion 50 mL/hr, IntraVENous, Continuous, Starting on Di 02/19/25 at 1030, Preprocedure, Upon admission to sameday - please start iv if patient does not have iv access. 1030 (Canceled Entry - Provider: Automatic Discharge Provider - Comment: Automatically canceled at discontinue of medication order) PRN Medication Order 02/17/2025 02/18/2025 02/19/2025 ALPRAZolam (Xanax) disintegrating tablet 0.25 mg (COMPLETED) 0.25 mg, Oral, Once PRN, anxiety, Starting on Di 02/19/25 at 1032, For 1 dose, Preprocedure, Please do not administer prior to obtaining consent and/or history and physical. 1045 (Given - Provid er: Yuliya Torres RN) bupivacaine-EPINEPHrine PF (Marcaine w/EPI) 0.5% -[id number] injection (CANCELED) As needed, Starting on Di 02/19/25 at 1231, Intraprocedure 1231 (Given - Provid er: Corona Cool MD) HYDROmorphone (Dilaudid) injection 0.5 mg (CANCELED) 0.5 mg, IntraVENous, Every 5 min PRN, severe pain (7-10), Starting on Di 02/19/25 at 1242, For 4 doses, Recovery (only), For Phase I. If Phase II oral narcotics have been administered in the last 60 minutes, do not administer IV narcotics unless specifically approved by provider. 1256 (Given - Provid er: Anette Lynn RN)1304 (Given - Provider: Anette Lynn RN)1321 (Given - Provider: Anette Lynn RN) lidocaine (Xylocaine) 2 % injection (CANCELED) As needed, Starting on Di 02/19/25 at 1231, Intraprocedure 1231 (Given - Provid er: Corona Cool MD) LORazepam (Ativan) injection 0.5 mg (COMPLETED) 0.5 mg, IntraVENous, Once PRN, for anxiety or muscle spasm., Starting on Di 02/19/25 at 1242, For 1 dose, Recovery (only), For IV doses dilute dose with 1ml NS. 1308 (Self Administe red Via Pump - Provider: Anette Lynn RN) oxyCODONE (Roxicodone) immediate release tablet 10 mg (COMPLETED)(Linked Group 2) 10 mg, Oral, Every 4 hours PRN, severe pain (7-10), Starting on Di 02/19/25 at 1242, For 1 dose, Recovery (only), PHASE II 1354 (Given - Provid er: Anette Lynn RN) sodium chloride 0.9 % infusion 5-250 mL/hr, IntraVENous, PRN, if patient receiving piggyback infusions and maintenance fluids are not ordered OR KVO fluids to protect IV site / prevent frequent line interruptions/ long duration, Starting on Di 02/19/25 at 1011, Preprocedure, For piggyback infusion, administer at same rate as piggyback for a total of 25 mL. Enter 25 mL into dose field and piggyback rate into rate field of order. If piggyback is infusing at a rate less than 100 mL/hr, enter 25 mL into dose field and 100 mL/hr into rate field of order. For KVO fluids, enter rate of 20 mL/hr or less into rate field of order. sodium chloride 0.9 % infusion 5-250 mL/hr, IntraVENous, PRN, if patient receiving piggyback infusions and maintenance fluids are not ordered OR KVO fluids to protect IV site / prevent frequent line interruptions / long duration, Starting on Di 02/19/25 at 1018, Preprocedure, For piggyback infusion, administer at same rate as piggyback for a total of 25 mL. Enter 25 mL into dose field and piggyback rate into rate field of order. If piggyback is infusing at a rate less than 100 mL/hr, enter 25 mL into dose field and 100 mL/hr into rate field of order. For KVO fluids, enter rate of 20 mL/hr or less into rate field of order. sodium chloride 0.9 % infusion 5-250 mL/hr, IntraVENous, PRN, if patient receiving piggyback infusions and maintenance fluids are not ordered OR KVO fluids to protect IV site / prevent frequent line interruptions / long duration, Starting on Di 02/19/25 at 1032, Preprocedure, For piggyback infusion, administer at same rate as piggyback for a total of 25 mL. Enter 25 mL into dose field and piggyback rate into rate field of order. If piggyback is infusing at a rate less than 100 mL/hr, enter 25 mL into dose field and 100 mL/hr into rate field of order. For KVO fluids, enter rate of 20 mL/hr or less into rate field of order. sodium chloride 0.9 % irrigation solution (CANCELED) As needed, Starting on Di 02/19/25 at 1221, Intraprocedure 1221 (Given - Provid er: Corona Cool MD - Comment: USED WITH SUCTION IMPRESS ASSOCIATE) sodium chloride 0.9% (NS) flush 10 mL 10 mL, IntraVENous, PRN, line care, Starting on Di 02/19/25 at 1011, Preprocedure, After every IV line use sodium chloride 0.9% (NS) flush 5-40 mL 5-40 mL, IntraVENous, PRN, line care, After every IV line use, Starting on Di 02/19/25 at 1018, Preprocedure, For Line Patency: Peripheral IV = 5 mL; Midline or Central Line = 10 mL/lumen. If following IV push medication, administer flush at same rate as the IV push. Flush volume is determined by type of infusion therapy being given. For non-viscous solutions use: Peripheral IV = 5 mL Midline or Central Line = 10 mL/lumen For viscous solutions (i.e. blood components, parenteral nutrition, contrast media, or after obtaining blood sample) use: Peripheral IV = 10 mL Midline or Central Line = 20 mL/lumen sodium chloride 0.9% (NS) flush 5-40 mL 5-40 mL, IntraVENous, PRN, line care, After every IV line use, Starting on Di 02/19/25 at 1032, Preprocedure, For Line Patency: Peripheral IV = 5 mL; Midline or Central Line = 10 mL/lumen. If following IV push medication, administer flush at same rate as the IV push. Flush volume is determined by type of infusion therapy being given. For non-viscous solutions use: Peripheral IV = 5 mL Midline or Central Line = 10 mL/lumen For viscous solutions (i.e. blood components, parenteral nutrition, contrast media, or after obtaining blood sample) use: Peripheral IV = 10 mL Midline or Central Line = 20 mL/lumen sterile water irrigation solution (CANCELED) As needed, Starting on Di 02/19/25 at 1215, Intraprocedure 1215 (Given - Provid er: Corona Cool MD - Comment: USED FOR SCOPE WARMER) Linked Groups Order Group 1: famotidine (Pepcid) tablet 20 mg (COMPLETED)Jump to med 20 mg, Oral, Once, On Di 02/19/25 at 1045, For 1 dose, Preprocedure, IV or Oral Or famotidine (Pepcid) 20 mg in sodium chloride (PF) 0.9 % 10 mL injection (COMPLETED) 20 mg, IntraVENous, Administer over 2 Minutes, Once, On Di 02/19/25 at 1045, For 1 dose, Preprocedure, IV or Oral Group 2: oxyCODONE (Roxicodone) immediate release tablet 5 mg (COMPLETED) 5 mg, Oral, Every 4 hours PRN, moderate pain (4-6), Starting on Di 02/19/25 at 1242, For 1 dose, Recovery (only), PHASE II Or oxyCODONE (Roxicodone) immediate release tablet 10 mg (COMPLETED)Jump to med 10 mg, Oral, Every 4 hours PRN, severe pain (7-10), Starting on Di 02/19/25 at 1242, For 1 dose, Recovery (only), PHASE II Scheduled Medication Order 03/01/2025 03/02/2025 03/03/2025 acetaminophen (Tylenol) tablet 650 mg (COMPLETED) 650 mg, Oral, Once, On Sun03/03/25 at 1620, For 1 dose, Maximum dose of acetaminophen is 4000 mg from all sources in 24 hours. 1622 (Given - Provid er: Antonina Sterling RN) lactulose (Chronulac) 10 GM/15ML solution 20 g (COMPLETED) 20 g, Oral, Once, On Sun03/03/25 at 1620, For 1 dose 1623 (Given - Provid er: Antonina Sterling RN) (unrecognized sect ion and content) No Status Records FoundNo Status Records FoundNo Status Records FoundNo Status Records FoundNo Status Records Found INFORMATION SOURCE (unrecogn ized section and content) DATE CREATED AUTHOR 04/01/2022 [facility] [employer] DATE CREATED AUTHOR AUTHOR'S ORGANIZ ATION 04/22/2022 [facility] [employer] DATE CREATED AUTHOR AUTHOR'S ORGANIZ ATION 04/02/2025 [facility] DATE CREATED AUTHOR AUTHOR'S ORGANIZ ATION 04/07/2025 [facility] DATE CREATED AUTHOR AUTHOR'S ORGANIZ ATION 06/01/2025 [facility] [employer] [facility] Source Comments (unrecognize d section and content) In the event this informatio n is protected by the Federal Confidentiality of Alcohol and Drug Abuse Patient Records regulations: The Federal rules restrict any use of the information to criminally investigate or prosecute any alcohol or drug abuse patient.[facility] the event this information is protected by the Federal Confidentiality of Alcohol and Drug Abuse Patient Records regulations: The Federal rules restrict any use of the information to criminally investigate or prosecute any alcohol or drug abuse patient.[facility] Goals (unrecognized section and content) Goals may be documented in a n alternate sectionGoals may be documented in an alternate section FOR RECORDS PERTAINING TO PATIENTS WHO ARE OR HAVE BEEN ENROLLED IN A CHEMICAL DEPENDENCY/SUBSTANCEABUSE PROGRAM, SOME INFORMATION MAY BE OMITTED. This clinical summary was aggregated from multiple sources. Caution should be exercised in using it in the provision of clinical care. This summary normalizes information from multiple sources, and as a consequence, information in this document may materially change the coding, format and clinical context of patient data. In addition, data may be omitted in some cases. CLINICAL DECISIONS SHOULD BE BASED ON THE PRIMARY CLINICAL RECORDS. [employer] [facility]. provides no warranty or guarantee of the accuracy or completeness of information in this document.
[2025-06-20 16:34] LABS: Troponin T High Sensitivity 9 ng/L (<=22)
[2025-06-20 16:38] LABS: Anion Gap 12 (5-15); BUN 17 mg/dL (4-19); BUN/Creat Ratio 16.0 RATIO (10-20); Calcium,Total 9.0 mg/dL (7.6-11.0); Carbon Dioxide 24.3 mmol/L (21.0-32.0); Chloride 104 mmol/L (98-108); Estimated Creatinine Clearance 59.96 ml/min (50-250); Glucose 92 mg/dL (70-99); Potassium 3.7 mmol/L (3.3-5.1)
[2025-06-20 16:41] VITALS: BP 168/94; PULSE 58; RESP 14; O2SAT 99
[2025-06-20 17:46] VITALS: BP 123/89; PULSE 49; RESP 18; O2SAT 100
[2025-06-20 18:38] LABS: Troponin T High Sens 2 HR 18 ng/L (<=22)
[2025-06-20 19:11] VITALS: BP 145/82; PULSE 45; RESP 14; O2SAT 100
== END 2025-06-20 19:50 | disposition home or self-care (01) ==
PROVIDERS: Emergency Provider Emergency Medicine; PCP Family Medicine; Visit Provider Emergency Medicine
DX: M54.6 Pain in thoracic spine (principal); M62.838 Other muscle spasm
CPT/HCPCS: 71275; 80048; 84484; 85025; 93005; 96374; 96375; 96376; 99284; Q9967; A4216; J2405

== ENCOUNTER 2025-06-23 11:03 | Emergency (ER) | payer MEDICARE, OTHER, SELFPAY ==
[2025-06-23 11:04] VITALS: BP 145/104; PULSE 82; RESP 14; TEMP 36.1; O2SAT 98; BMI 24.5
[2025-06-23 11:58] VITALS: BP 154/94; PULSE 62; RESP 12; TEMP 36.6; O2SAT 98
--- NOTE | 2025-06-23 12:01 | ED.VIS.BACK ---
HPI History of Present Illness Chief Complaint: Back Detail of Chief Complaint: Pain in lower neck upper thoracic spine. Informant: patient Onset/Context/Timing Onset: Days Context: Gradual Onset Quality: Dull and Aching Location: - (Lower cervical possibly upper thoracic spine.) Current Severity: Mild Maximum Severity: Mild Associated Symptoms Associated Symptoms: Tingling, Radiation to Right Leg and Radiation to Left Leg; Negative for Numbness, Fever, Abdominal Pain, Dysuria, Unable to Ambulate, Unable to Transfer, Urinary Retention, Urinary Incontinence, Constipation or Fecal Incontinence Narrative Narrative: 63-year-old male was recently seen in the emergency department had a workup for atypical back and chest pain that was negative. Including a CTA showing no signs of dissection. Is having discomfort in his lower neck, upper back sometimes goes his arms and causing tingling in his legs. No weakness. He says he has had prior lumbar surgery. Denies any bowel or bladder incontinence or retention. No weakness. Also states this is making him anxious. Prior similar symptoms: Yes Recent Illness/Hospitalization: No PFSH PFSH Home Medications ?Medication ?Instructions ?Recorded ?Last Taken ?Type metaxalone 800 mg tablet 800 mg PO TID 7 days #21 tabs 06/20/25 Unknown Rx lorazepam 0.5 mg tablet (Ativan) 0.5 mg PO Q6H PRN anxiety 7 days 06/23/25 Unknown Rx #8 tabs prednisone 20 mg tablet 40 mg (2 x 20 mg) PO DAILY 7 days 06/23/25 Unknown Rx #14 tabs Allergy/AdvReac Type Severity Reaction Status Date / Time Penicillins Allergy PT UNSURE Verified 06/23/25 11:06 OF REACTION Social History Smoking Status: Never smoker ROS ROS ED ROS Narrative Denies recent illness. Constitutional Constitutional ED: Denies chills or fever(s) Eyes Eyes: Denies blurry vision ENT ENT ED: Denies ear pain Cardiovascular Cardiovascular: Denies chest pain Respiratory/Chest Respiratory/Chest: Denies dyspnea Gastrointestinal Gastrointestinal: Denies abdominal pain, constipation, diarrhea, melena, nausea or vomiting Genitourinary Genitourinary ED: Denies dysuria or hematuria Musculoskeletal Musculoskeletal: Reports back pain and neck pain; Denies arthralgias or myalgias Integumentary Denies abscess or Abrasions Neurologic Neurologic: Denies headache(s) Psychiatric Psychiatric: Denies anxiety Endocrine Endocrinology: Denies cold intolerance Hematologic/Lymphatic Hematologic/Lymphatic: Denies easy bleeding Allergic/Immunologic Allergic/Immunologic ED: Denies mouth swelling, tongue swelling or urticaria EXAM Physical Exam Narrative Exam Narrative: Well-appearing 69-year-old male. Vital signs stable afebrile. He is in no acute distress. Accompanied by his . H EENT exam pupils round react light. Moist mucous membranes. Normal speech. No facial droop. No trauma. Lungs clear to auscultation bilaterally. Heart regular rhythm no murmur. Neck there is no reproducible neck tenderness. No muscle spasm. Trachea midline. No lymphadenopathy. Abdomen is soft, nontender, nondistended normal bowel sounds without peritoneal signs. Back nontender. He has a well-healed lumbar surgical incision from years ago. Moving all 4 extremities. 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 Dorsi plantarflexion intact. He can lift either arm or leg. Equal Specter radial pulses. Normal sensation both upper and lower extremities. Normal range of motion. Normal strength in both upper and lower extremities. Neurologic exam is normal. NIH is 0. Const Vital Signs: 06/23/25 11:04 06/23/25 11:58 Temperature 97 F L 98 F Temperature Source Temporal Pulse Rate 82 62 Respiratory Rate 14 12 Blood Pressure 145/104 H 154/94 H Blood Pressure Mean 117 114 Pulse Ox 98 98 Oxygen Delivery Method Room Air MDM MDM MDM Narrative Medical decision making narrative: 69-year-old male was seen recently for atypical back and chest pain had any significant workup labs and CTs were unremarkable. This may or may not be like a lower cervical disc or inflammation because he has known arthritis in his neck he tells me. He is had no trauma. He does not meet any criteria currently for an MRI. He has good strength and sensation and range of motion in both upper and lower extremities. There is no cauda equina. Daily placed on prednisone 40 mg a day for a week given a dose in the emergency department. Discharged home follow-up with orthopedic spine doctor. There was anxiety of a written for a few Ativan to use sparingly and follow-up with his primary care physician for further evaluation of that. He and his are comfortable with the plan. Discharge Plan Triage Chief Complaint: Back ED Provider: Mark Douglas Dx/Rx/DC Orders Clinical Impression: Neck pain, History of back surgery, Anxiety Instructions: ED Back Pain (Acute or Chronic) Prescriptions: New prednisone 20 mg tablet 40 mg PO DAILY 7 Days Qty: 14 0RF lorazepam [Ativan] 0.5 mg tablet 0.5 mg PO Q6H PRN (Reason: anxiety) 7 Days Qty: 8 0RF No Action metaxalone 800 mg tablet 800 mg PO TID 7 Days Qty: 21 0RF Primary Care Provider: Anthony Toscano Referrals: Lupillo Ashton MD [Med Staff - Active Staff, Orthopedics] - As soon as possible Anthony Toscano MD [Primary Care Provider, Family Practice] Activity Restrictions/Additional Instructions: Prednisone daily for possible inflammation. This may improve your symptoms. Ativan as needed for anxiety. I only wrote you for half milligram tablets you could take a second 1 if needed. Do not drink alcohol or drive or operate any type of heavy equipment if you are using the Ativan. Follow-up with your primary care physician for the anxiety. Call and follow-up with the orthopedic spine physician Dr. Ashton for further evaluation of your neck. Print Language: Lithuanian Disposition Disposition: .Default
== END 2025-06-23 12:16 | disposition home or self-care (01) ==
PROVIDERS: Emergency Provider Emergency Medicine; PCP Family Medicine; Visit Provider Emergency Medicine
DX: M54.2 Cervicalgia (principal); M54.6 Pain in thoracic spine; F41.9 Anxiety disorder, unspecified; Z98.890 Other specified postprocedural states
CPT/HCPCS: 99282

== ENCOUNTER → 2025-07-01 | Outpatient (CLI) | payer MEDICARE, OTHER, SELFPAY ==
--- NOTE | 2025-07-01 13:57 | MRI_ITS ---
PROCEDURE: SPINE CERVICAL (ROUTINE) 07/01/2025 REASON FOR EXAM: PAIN WITH RADICULOPATHY TECHNIQUE: Procedure Code: MRISPC Modality: MR Procedure: SPINE CERVICAL (ROUTINE) Multiplanar and multisequence images were obtained without IV contrast administration. COMPARISON: June 26, 2025 FINDINGS: Vertebrae: Cervical vertebral body heights are preserved. Bone marrow signal is unremarkable. Alignment: Normal. No spondylolisthesis. Spinal Cord: Cervical spinal cord is of normal size and signal intensities. Structures at the foramen magnum are unremarkable. C2-3: Endplate hypertrophy without focal disc abnormality, canal stenosis. Mild left neural foraminal narrowing. Disc desiccation without loss of disc height. C3-4: Endplate hypertrophy without focal disc abnormality. Mild left neural foraminal narrowing. Disc desiccation without loss of disc height. C4-5: Broad-based disc bulge without focal disc abnormality, calcinosis, or neural foraminal narrowing. No loss of disc height. C5-6: Endplate hypertrophy without focal disc abnormality, canal stenosis. Mild right neural foraminal narrowing. Disc desiccation without loss of disc height. C6-7: No focal disc abnormality, canal stenosis, or neural foraminal narrowing. C7-T1: Unremarkable Paravertebral soft tissues are within normal limits. MRI/Spine Cervical (Routine) IMPRESSION: Mild multilevel degenerative changes of the cervical spine without evidence of cord signal abnormality as enumerated above. Reading Location: [id number]
== END | disposition home or self-care (01) ==
LOC: MRI 13:54
PROVIDERS: PCP Family Medicine; Referring Provider Nurse Practitioner Family; Visit Provider Nurse Practitioner Family
DX: M54.12 Radiculopathy, cervical region (principal)
CPT/HCPCS: 72141